=== PATIENT | male | born 1945 | race Caucasian/White ===

== ENCOUNTER 2018-02-12 12:45 | Emergency (ER) | payer MEDICARE, SELFPAY ==
[2018-02-12 12:47] VITALS: BP 127/64; PULSE 73; RESP 18; TEMP 36.3; O2SAT 98; BMI 32.5
--- NOTE | 2018-02-12 13:20 | NURSING ---
NO LW OR POA
--- NOTE | 2018-02-12 13:45 | RAD_ITS ---
STUDY: X-RAY - LEFT KNEE REASON FOR EXAM: Male, 72 years old. Trauma, status post fall with pain TECHNIQUE: 4 view(s) of the knee. COMPARISON: None. FINDINGS: Normal visualized distal femur. Normal visualized proximal tibia and fibula. Normal proximal tibiofibular articulation. The bones are demineralized. No acute fracture is seen. There is moderate degenerative arthrosis of the medial femorotibial compartment with moderate joint space narrowing. Normal lateral femorotibial compartment. There is moderate degenerative arthrosis of the patellofemoral articulation. There is no demonstrated joint effusion. Extensive atherosclerotic vascular calcifications are seen. RAD/Knee 4 or More Views IMPRESSION: Degenerative arthrosis. Osteopenia, without acute fracture. Electronically Signed: Shailesh Boateng DO at 14:24 EDT Tel , Service support ,
--- NOTE | 2018-02-12 14:49 | ED.VISSUMM ---
- ER Visit Summary Date of Service: 02/12/18 Chief Complaint: Left knee pain History of Present Illness: The patient is a 72 M who presents with left knee pain. He fell 4 weeks ago. He has been having pain since that time. However he twisted began 5 days ago and his pain is been worse since that time. Normally he ambulates with a walker but over the last few days has been unable to bear weight due to pain. He is using a wheelchair and is able to pivot to change locations at home. He denies any paresthesias weakness or loss of function. While he is at a rest if he is not moving he has no pain. However with attempts at bearing weight his pain is severe. He denies any other injuries. Physical Examination: Afebrile vitals normal Heart regular rate and rhythm Lungs clear Abdomen soft Patient has painful range of motion of left knee but is able to go through active full range of motion. His extensor mechanism is intact. There is no appreciable effusion. It is not hot to the touch or erythematous. Test Results: Knee x-ray shows degenerative changes and osteopenia but no fracture. Emergency Department Course and Treatment: Patient declined any medications here. We discussed orthopedic referral which she would prefer to go through the [facility] for. We do discuss pain medications at home he does not want to take any opiates and will use [id number] pain medications. His daughter is also a physical therapist who he said could help with some therapy and taping. We discussed following up with his primary care physician for physical therapy referral as well. Treatment Plan: [] Disposition: Discharge Impression: Acute left knee sprain This note was generated with [employer] dictation software. It may contain incorrect words, spelling, and punctuation that were not noted in review of the chart prior to signing ED Disposition - Plan for ED Patient: Chief Complaint: Lower Extremity Injury Referrals: Reyna Apple MD [Primary Care Provider] -
--- NOTE | 2018-02-12 14:52 | ED.DCSUM_ITS ---
- ER Visit Summary Date of Service: 02/12/18 Chief Complaint: Left knee pain History of Present Illness: The patient is a 72 M who presents with left knee pain. He fell 4 weeks ago. He has been having pain since that time. However he twisted began 5 days ago and his pain is been worse since that time. Normally he ambulates with a walker but over the last few days has been unable to bear weight due to pain. He is using a wheelchair and is able to pivot to change locations at home. He denies any paresthesias weakness or loss of function. While he is at a rest if he is not moving he has no pain. However with attempts at bearing weight his pain is severe. He denies any other injuries. Physical Examination: Afebrile vitals normal Heart regular rate and rhythm Lungs clear Abdomen soft Patient has painful range of motion of left knee but is able to go through active full range of motion. His extensor mechanism is intact. There is no appreciable effusion. It is not hot to the touch or erythematous. Test Results: Knee x-ray shows degenerative changes and osteopenia but no fracture. Emergency Department Course and Treatment: Patient declined any medications here. We discussed orthopedic referral which she would prefer to go through the [facility] for. We do discuss pain medications at home he does not want to take any opiates and will use [id number] pain medications. His daughter is also a physical therapist who he said could help with some therapy and taping. We discussed following up with his primary care physician for physical therapy referral as well. Treatment Plan: [] Disposition: Discharge Impression: Acute left knee sprain This note was generated with [employer] dictation software. It may contain incorrect words, spelling, and punctuation that were not noted in review of the chart prior to signing ED Disposition - Plan for ED Patient: Chief Complaint: Lower Extremity Injury Referrals: Reyna Apple MD [Primary Care Provider] -
--- NOTE | 2018-02-12 14:52 | ED.DEP ---
ED Disposition - Plan for ED Patient: Chief Complaint: Lower Extremity Injury Instructions: ED Sprain Knee Referrals: Reyna Apple MD [Primary Care Provider] -
[2018-02-12 15:27] VITALS: PULSE 76; RESP 18; O2SAT 97
== END 2018-02-12 15:28 | disposition home or self-care (01) ==
PROVIDERS: Emergency Provider Emergency Medicine; Family Provider Family Medicine; PCP Family Medicine
DX: S83.92XA Sprain of unspecified site of left knee, initial encounter (principal); W19.XXXA Unspecified fall, initial encounter; Y93.9 Activity, unspecified; Y92.9 Unspecified place or not applicable; M85.88 Other specified disorders of bone density and structure, other site; I25.10 Atherosclerotic heart disease of native coronary artery without angina pectoris; K21.9 Gastro-esophageal reflux disease without esophagitis; E11.9 Type 2 diabetes mellitus without complications; I10 Essential (primary) hypertension; E78.00 Pure hypercholesterolemia, unspecified; G20 Parkinson's disease; Z85.47 Personal history of malignant neoplasm of testis; E03.9 Hypothyroidism, unspecified; Z90.89 Acquired absence of other organs; Z95.1 Presence of aortocoronary bypass graft; Z79.82 Long term (current) use of aspirin; Z79.4 Long term (current) use of insulin; Z79.84 Long term (current) use of oral hypoglycemic drugs; Z79.899 Other long term (current) drug therapy
CPT/HCPCS: 73564; 99282

== ENCOUNTER 2018-11-23 14:33 | Inpatient (IN) | payer MEDICARE, OTHER, SELFPAY ==
[2018-10-22 10:27] VITALS: BMI 30.2
[2018-11-23] VITALS (9 sets, daily range): BP systolic 92–154; BP diastolic 44–83; PULSE 70–82; RESP 18–28; TEMP 36.3–37.1; O2SAT 88–98; BMI 28.3; BMI 27.9
--- NOTE | 2018-11-23 15:12 | EKG12_ITS ---
Test Reason : WEAKNESS Blood Pressure : / mmHG Vent. Rate : 075 BPM Atrial Rate : 075 BPM P-R Int : 000 ms QRS Dur : 138 ms QT Int : 418 ms P-R-T Axes : 000 -35 025 degrees QTc Int : 466 ms Suspect unspecified pacemaker failure AV Sequential Pacemaker Abnormal ECG Confirmed by NOAH CEVALLOS, ENEIDA ([id number]), digital editor JESSICA OLIVER ([id number]) on 11/25/2018 1:27:15 PM Referred By: Vick Gay Confirmed By:ENEIDA ZAMORA MD
--- NOTE | 2018-11-23 15:18 | ED.VISSUMM ---
- ER Visit Summary Date of Service: 11/23/18 Chief Complaint: Weakness History of Present Illness: The patient is a 73 M reports diarrhea for the past 2 weeks. He is noted increased generalized weakness and has had multiple falls at home. He denies injury. He does live home alone. He states he does use a cane or walker to help him with ambulation. He states his legs just freeze and he falls. Patient denies fever or chills. He denies chest pain or palpitations. He does not feel short of breath and has not had cough. Physical Examination: Blood pressure is 108/51, temperature 97.6, heart rate 82, respiratory rate 22, pulse ox 88% on room air. Sat is 92% on 2 L nasal cannula at the time of my exam. Patient sitting upright in bed no acute distress. Head and neck examination was no external sign of trauma. Heart is regular rate and rhythm with a 2/6 murmur. Lungs sounds are clear. Abdomen is soft no focal tenderness. Active bowel sounds are noted. Lower extremity examination was 2+ edema that is symmetric. Legs are nontender. Parkinson's tremor is noted. Test Results: CBC reveals white count 11.3 with 90% neutrophils. Hemoglobin is 8. Chemistry studies reveal BUN of 50 and a creatinine 1.43. Urinalysis unremarkable. Troponin negative. EKG is A. fib at 75 with right bundle branch block. He has slightly more pronounced ST depression in V2 compared to prior but this may be secondary to lead placement. Portable chest x-ray is read as bibasilar infiltrates, worse on the left. Emergency Department Course and Treatment: Patient was pretty adamant he did not feel short of breath and had not been coughing. Family at bedside agreed with this. Patient was sent for a CT of the chest and this revealed significant bilateral lower lobe infiltrate secondary to pneumonia. There is also a right upper lobe infiltrate. At this time blood cultures are obtained and patient is given Rocephin and Zithromax. Treatment Plan: [] Disposition: Admit Impression: Pneumonia This note was generated with [employer] dictation software. It may contain incorrect words, spelling, and punctuation that were not noted in review of the chart prior to signing ED Disposition - Plan for ED Patient: Disposition: Acute Care [facility]
--- NOTE | 2018-11-23 15:20 | RAD_ITS ---
STUDY: X-RAY CHEST REASON FOR EXAM: Male, 73 years old. Weakness. TECHNIQUE: Single AP portable view of the chest. COMPARISON: Comparison is made with prior study dated August 14, 2015. FINDINGS: EKG electrodes are seen. There is evidence of bibasilar infiltrates worse on the left side. Follow-up is recommended. There is blunting of the left costophrenic angle. Sternal cerclage wires and vascular clips are present from a prior sternotomy and coronary artery bypass graft procedure (CABG). There is evidence of a rupture of the superior cerclage wires. Stable appearance of the right dual-chamber pacemaker. Normal mediastinum and arun. Normal visualized pulmonary arteries. There is atherosclerotic calcification of the aortic arch with tortuosity. There are diffuse degenerative changes of the visualized thoracic spine. Prior left rotator cuff surgery. There is no demonstrated abnormality of the visualized soft tissue structures of the upper abdomen. RAD/Chest 1 View (Portable) IMPRESSION: Bibasilar infiltrates worse on the left side with blunting of the left costophrenic angle. Electronically Signed: Charles Steen, at 15:57 EDT , Service support ,
[2018-11-23 15:33] LABS: Absolute Lymphocyte Count 0.65 X10^3/ul (0.83-4.51); Absolute Neutrophil Count 10.2 X10^3/uL (2.0-7.7); Hematocrit 23.8 % (40-54); Lymphocyte # 0.65 X10^3/ul (4.0); Lymphocyte % 5.7 % (19-41); Mean Corp Hgb Conc 33.6 g/gl (32-36); Mean Corpuscular Hgb 29.4 pg (27.0-32.0); Mean Corpuscular Volume 87.5 fL (80-94); Mean Platelet Vol. 9.1 fl (6.2-12.0); Monocyte# 0.42 X10^3/uL; Monocyte% 3.7 % (0-10); Neutrophil # 10.23 X10^3/uL (2.7-7.7); Neutrophil % 90.3 % (47-70); Platelet Count 296 K/mm3 (150-450); RBC Distribution Width CV 16.3 % (11.6-14.6); RBC Distribution Width SD 52.7 fl (35.1-43.9); Red Blood Count 2.72 M/mm3 (4.6-6.2); White Blood Count 11.3 K/mm3 (4.4-11.0)
[2018-11-23 15:40] LABS: Anion Gap 7 (5-15); BUN 50 mg/dL (7-18); Calcium,Total 8.6 mg/dL (8.5-10.1); Chloride 106 mmol/L (98-107); Creatinine, Serum 1.43 mg/dL (0.70-1.30); EST Glomerular Filtration Rate 51 mL/min (>60); Est Glom Filt Rate - Afr Amer 62 mL/min (>60); Estimated Creatinine Clearance 39.42 ml/min; Glucose 155 mg/dL (74-106); Potassium 4.2 mmol/L (3.5-5.1); Sodium Level 136 mmol/L (136-145)
[2018-11-23] MEDS: 0.9% Normal Saline 1,000 ML 15 ML IV (15:42)
[2018-11-23 15:44] LABS: POSITIVE COUNT NO; POSITIVE DIFFERENTIAL NO; POSITIVE MORPHOLOGY NO
[2018-11-23 16:06] LABS: Bacteria 0 SEEN /hpf (None Seen); Mucous, Urine 0 SEEN /hpf (<or=2+); Red Blood Cells-Urine 0 SEEN /hpf (0-5)
--- NOTE | 2018-11-23 16:39 | CASEMGMT ---
Social Work Note Referral from Carissa Puente, RN, for resources as family is concerned that the 4 hrs/day of aide services is not enough. Introduced self and role at [facility]. Pt and pt's son in law present at time of assessment. Pt is alert and oriented x3 and able to participate in assessment at this time. Pt reports to live alone in a 3 story home with a one level setup. There are 4 YOLANDE and a chair lift up the steps. DME consists of a cane and walker, but pt does not primarily use he states. Estimates he had about 5 falls in the last week. Discuss options at discharge such as SNF or HHC. Pt states, I hate the 'n' word [assisted], but would go if needed. Recommend that he discusses his PT/OT evaluations with the appropriate disciplines and makes an educated decision with family from there. Understanding expressed and pt and family in agreement. Pt confirms his PCP is Dr. Goldberg, and he also sees Dr. Clifton at the [facility]. Pt served in the [employer]. Preferred pharmacy is [facility] in [place]. Pt does have LW and HCPOA and his daughter Renay is his HCPOA. Forms not on file and requested that they be brought in at their convenience. Pt and family made aware that an RN CM or SW is available to assist with discharge planning from their assigned unit. PLAN: ROSCOE Lezama, [employer] SORTER, KARLEE
[2018-11-23 16:41] LABS: Color, Urine Yellow (Yellow); Glucose, Dipstick Normal (Normal); Ketone-Dipstick Negative (Negative); Leukocyte Esterase-Dipstick 25 /ul (Negative); Nitrite-Dipstick Negative (Negative); Occult Blood-Urine Negative /ul (Negative); Protein-Dipstick Negative (Negative); Urine Bilirubin Dipstick Negative (Negative); Urine Clarity Clear (Clear); Urine Urobilinogen Normal (Normal)
[2018-11-23 16:43] LABS: Squamous Epithelial Cells - UA 0-5 SEEN /hpf (0-5); White Blood Cells 0-5 SEEN /hpf (0-5)
--- NOTE | 2018-11-23 17:28 | CT_ITS ---
STUDY: CT CHEST WITHOUT CONTRAST REASON FOR EXAM: Male, 73 years old. Weakness, abnormal chest x-ray RADIATION DOSAGE (If Supplied By Facility): CTDIvol = ( 17.82 ) mGy, DLP = ( 619.06 ) mGycm TECHNIQUE: Transaxial imaging was performed without the administration of intravenous contrast material. Individualized dose optimization techniques were used for this CT. COMPARISON: None. FINDINGS: There are significant bilateral lower lobe pulmonary infiltrates with subsegmental atelectasis. There is mild right upper lobe pulmonary infiltrate. There is motion artifact on the exam. There is a 5 mm left upper lobe pulmonary nodule. There is a mild ground glass pulmonary opacity within the left upper lobe. There is mild infiltrate within the right middle lobe. Normal heart and pericardium. There is a 2.5 x 1.5 cm low-density right adrenal gland lesion. There is median sternotomy. There is a cardiac pacemaker. There is sternal dehiscence. There are old right rib fractures. Normal mediastinum. Normal hilar regions. Normal unenhanced pulmonary arteries. Normal aorta arch and descending thoracic aorta. The multilevel degenerative changes thoracic and lumbar spine with Schmorl's nodes. There is no demonstrated abnormality of the visualized upper abdomen. There are surgical clips within the left humeral head likely from rotator cuff repair. CT/Chest without Contrast IMPRESSION: Significant bilateral lower lobe pulmonary infiltrates and subsegmental atelectasis secondary to pneumonia Right upper lobe pulmonary infiltrate Minimal pulmonary infiltrates right middle lobe and left upper lobe Indeterminate 5 mm pulmonary nodule within the left upper lobe, [address] chest follow-up for stability is recommended Multilevel spondylosis thoracic and lumbar spine Right adrenal adenoma Sternal dehiscence Left shoulder surgical clips likely from prior rotator cuff repair Electronically Signed: Bahman Greenfield, at 19:07 EDT Tel , Service support ,
--- NOTE | 2018-11-23 20:24 | HP.PCM_ITS ---
Problem List (1) Paroxysmal ventricular tachycardia Status: Acute (2) Implantable cardioverter-defibrillator (ICD) in situ Status: Chronic (3) Type 2 diabetes mellitus Status: Chronic (4) Community acquired pneumonia Status: Acute History of Present Illness Date of Admission: 11/23/18 Chief Complaint: fall The patient is a 73 year old M with a significant history of atrial fibrillation; Parkinson's disease; type 2 diabetes; permanent pacemaker with defibrillator who presented to the emergency department because of a fall. Patient uses a walking device. Reportedly he fell due to complications with a walking device and family thinks that his fall was mechanical. He laid down for some time because he was too weak to get up. His fall was on the same day of presentation. Also patient reports a 2-week history of loose stools. He denies any fever. He denies any nausea or vomiting. He has chills and he has poor appetite. He denies any shortness of breath. He has a dry cough. At the emergency department patient was found to be 88% on room air. At the emergency department chest x-ray showed bibasilar infiltrates worse on the left side with blunting of the left costophrenic angle. Chest CT was also remarkable for significant bilateral lower lobe pulmonary infiltrates and subsegmental atelectasis secondary to pneumonia. Right upper lobe pulmonary infiltrate and indeterminate 5mm pulmonary nodule as well as right adrenal adenoma. Past Medical History Past Medical History (Chronic Problems): Chronic Problems (Last Reviewed 11/23/18 @ 21:51 by Vick Gay MD) Atherosclerotic heart disease of [place] coronary artery without angina pectoris (Chronic) CABG x4- MONTERO to LAD, EPIFANIO to the Distal RCA, Right Radial Artery to the OM branch of CX, and Reverse SVG from the aorta to the Distal RCA 08/17/01 Aortocoronary bypass status (Chronic ~08/17/01) CABG x4- MONTERO to LAD, EPIFANIO to the Distal RCA, Right Radial Artery to the OM branch of CX, and Reverse SVG from the aorta to the Distal RCA 08/17/01 Hyperlipidemia (Chronic) Hypertension (Chronic) Long-term use of high-risk medication (Chronic) Implantable cardioverter-defibrillator (ICD) in situ (Chronic ~10/23/11) Type 2 diabetes mellitus (Chronic) Atrial flutter (Chronic) Atrial fibrillation (Chronic) Medical History: Medical History (Last Reviewed 11/23/18 @ 21:58 by Vick Gay MD) Atherosclerotic heart disease of [place] coronary artery without angina pectoris (Chronic) I25.10 CABG x4- MONTERO to LAD, EPIFANIO to the Distal RCA, Right Radial Artery to the OM branch of CX, and Reverse SVG from the aorta to the Distal RCA 08/17/01 Hyperlipidemia (Chronic) E78.5 Hypertension (Chronic) I10 Carotid bruit (Acute) R09.89 Long-term use of high-risk medication (Chronic) Z79.899 Paroxysmal ventricular tachycardia (Acute) I47.2 Type 2 diabetes mellitus (Chronic) E11.9 Atrial flutter (Chronic) I48.92 Atrial fibrillation (Chronic) I48.91 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 Parkinsons disease G20 Allergies Iodine and Iodide Containing Produc Allergy (Verified 11/23/18 15:05) Shortness of breath simvastatin Adverse Reaction (Verified 11/23/18 15:05) Other Home Medications: Ambulatory Orders Medication Instructions Recorded Atorvastatin Calcium [Lipitor] 20 mg PO QHS 09/27/14 Diltiazem HCl [Diltiazem 24Hr ER] 180 mg PO DAILY 09/27/14 Insulin Aspart [Novolog Flexpen] 5 units SC BREAKFAST 09/27/14 Insulin Aspart [Novolog Flexpen] 6 units SC LUNCH 09/27/14 Insulin Aspart [Novolog Flexpen] 7 units SC DINNER 09/27/14 Insulin Glargine [Lantus SoloStar 26 units SC QHS 09/27/14 Pen] Lisinopril [Zestril] 5 mg PO DAILY 09/27/14 Metformin HCl [Glucophage] 500 mg PO TIDCM 09/27/14 Omeprazole [Prilosec] 20 mg PO BID 09/27/14 buPROPion tablets [Wellbutrin 150 mg PO BID 09/27/14 tablets] hydrOXYzine tablet [Atarax tablet] 10 mg PO TID PRN PRN 09/27/14 aspirin 325 mg tablet 325 mg PO QDAY 01/12/18 carbidopa 25 mg-levodopa 250 mg 1.5 tab PO Q6H tab 01/12/18 tablet cyanocobalamin (vit B-12) 1,000 1,000 mcg PO QDAY 05/14/18 mcg tablet entacapone 200 mg tablet 200 mg PO Q6H tab 01/12/18 gabapentin 600 mg tablet 600 mg PO BID 01/12/18 ranitidine 150 mg tablet 150 mg PO QHS 01/12/18 calcium citrate-vitamin D3 315 1 tab PO DAILY 10/22/18 mg-250 unit tablet coconut oil 1,000 mg capsule 1,000 mg PO TID cap 10/22/18 ferrous sulfate 325 mg (65 mg 325 mg PO TID tab 10/22/18 iron) tablet isosorbide mononitrate ER 60 mg 60 mg PO DAILY tab 10/22/18 tablet,extended release 24 hr levothyroxine 137 mcg tablet 137 mcg PO DAILY 10/22/18 sertraline 100 mg tablet 150 mg PO DAILY tab 10/22/18 Surgical History: Surgical History (Last Reviewed 11/23/18 @ 21:51 by Vick Gay MD) Aortocoronary bypass status (Chronic) Onset Date: ~08/17/01 Z95.1 CABG x4- MONTERO to LAD, EPIFANIO to the Distal RCA, Right Radial Artery to the OM branch of CX, and Reverse SVG from the aorta to the Distal RCA 08/17/01 Implantable cardioverter-defibrillator (ICD) in situ (Chronic) Onset Date: ~10/23/11 Z95.810 History of appendectomy Z90.49 History of cardiac radiofrequency ablation Onset Date: ~06/2003 Z98.890 History of orchiectomy, unilateral Z90.79 History of tonsillectomy Z90.89 Lives: Alone Smoking Status: Former smoker - *Family History Maternal Family History: Family History (Last Reviewed 11/23/18 @ 21:52 by Vick Gay MD) Father CAD (coronary artery disease) Myocardial infarction Mother CAD (coronary artery disease) Sister Diabetes Sister CAD (coronary artery disease) Hx of CABG History Items: No pertinent history Review of Systems Constitutional: Reports: Anorexia, Chills, Weakness. Denies: Fever, Weight Change HEENT: Denies: Head Aches, Sinus Congestion, Sinus Drainage Cardiovascular: Denies: Chest Pain, Palpitations Respiratory: Reports: Cough. Denies: Shortness of breath at rest, Sputum production Gastrointestinal: Reports: Diarrhea. Denies: Abdominal Pain, Nausea, Vomiting Genitourinary: Denies: Dysuria Musculoskeletal: Denies: Joint Pain, Joint Tenderness Skin: Denies: Rash, Wounds Neurological: Denies: Numbness, Tingling, Focal weakness Psychiatric: Reports: Depression. Denies: Anxiety, Homicidal Ideations, Suicidal Ideations Hematologic/ Lymphatic: Denies: Easy Bruising, Easy Bleeding VTE Information - Inpt Only VTE Present on Admission: No VTE Mechan Device Prophylaxis: None VTE Pharm Prophylaxis ordered?: Yes Patient Problems: Active and Suspected Problems (Last Reviewed 11/23/18 @ 21:51 by Vick Gay MD) Community acquired pneumonia (Acute) - Physical Exam General: Alert, Oriented x3, Cooperative HEENT: Atraumatic, PERRLA, EOMI, Normocephalic Neck: Supple, No JVD, Negative Carotid Bruits Lungs: Clear to auscultation, Normal air movement Cardiovascular: Regular rate, No murmurs Abdomen: Bowel Sounds Present, Soft, Non Tender Extremities: No edema, Capillary Refill Less than 3 Seconds Skin: No rashes, No breakdown Musculoskeletal: No Tenderness to Palpation of Joints or Extremities Neurological: - - Patient noted with bilateral tremors of the hands. Neuro otherwise grossly intact. Psych/Mental Status: Normal Affect, Appropriate Vital Signs Temp Pulse Resp BP Pulse Ox 98.7 F 70 18 114/60 93 11/23/18 18:19 11/23/18 18:19 11/23/18 18:19 11/23/18 18:19 11/23/18 18:19 Oxygen Flow Rate (L/min) 3 Oxygen Delivery Method Nasal Cannula Weight: 77.111 kg Body Mass Index (BMI) 28.3 Laboratory Tests Past 24 Hrs 11/23/18 11/23/18 11/23/18 15:00 15:00 15:00 WBC 11.3 H RBC 2.72 L Hgb 8.0 L Hct 23.8 L MCV 87.5 MCH 29.4 MCHC 33.6 RDW 16.3 H RDW Differential 52.7 H Plt Count 296 MPV 9.1 Immature Gran % (Auto) 0.300 Neut % (Auto) 90.3 H Lymph % (Auto) 5.7 L [place] % (Auto) 3.7 Eos % (Auto) 0.0 Baso % (Auto) 0.0 Absolute Neuts (auto) 10.2 H Absolute Lymphs (auto) 0.65 L Total Counted Not Reportable Sodium 136 Potassium 4.2 Chloride 106 Carbon Dioxide 23.0 Anion Gap 7 BUN 50 H Creatinine 1.43 H Estim Creat Clear Calc 39.42 Est GFR (MDRD) Af Amer 62 Est GFR (MDRD) Non-Af 51 L BUN/Creatinine Ratio 35.0 H Glucose 155 H Calcium 8.6 Troponin I < 0.015 Urine Color Urine Clarity Urine pH Ur Specific [place] Urine Protein Urine Glucose (UA) Urine Ketones Urine Occult Blood Urine Nitrite Urine Bilirubin Urine Urobilinogen Ur Leukocyte Esterase Urine RBC Urine WBC Ur Squamous Epith Cells Urine Bacteria Urine Mucus 11/23/18 16:00 WBC RBC Hgb Hct MCV MCH MCHC RDW RDW Differential Plt Count MPV Immature Gran % (Auto) Neut % (Auto) Lymph % (Auto) [place] % (Auto) Eos % (Auto) Baso % (Auto) Absolute Neuts (auto) Absolute Lymphs (auto) Total Counted Sodium Potassium Chloride Carbon Dioxide Anion Gap BUN Creatinine Estim Creat Clear Calc Est GFR (MDRD) Af Amer Est GFR (MDRD) Non-Af BUN/Creatinine Ratio Glucose Calcium Troponin I Urine Color Yellow Urine Clarity Clear Urine pH 5.0 Ur Specific [place] 1.010 Urine Protein Negative Urine Glucose (UA) Normal Urine Ketones Negative Urine Occult Blood Negative Urine Nitrite Negative Urine Bilirubin Negative Urine Urobilinogen Normal Ur Leukocyte Esterase 25 H Urine RBC 0 SEEN Urine WBC 0-5 SEEN Ur Squamous Epith Cells 0-5 SEEN Urine Bacteria 0 SEEN Urine Mucus 0 SEEN Assessment/Plan All Active Problems (Last Reviewed 11/23/18 @ 21:51 by Vick Gay MD) Community acquired pneumonia (Acute) Carotid bruit (Acute) Paroxysmal ventricular tachycardia (Acute) The patient is a 73 year old M with a significant history of atrial fibrillati on; Parkinson's disease; type 2 diabetes; permanent pacemaker with defibrillator who presented to the emergency department because of a fall; weakness and diarrhea and found to have radiographic evidence of pulmonary infiltrates consistent with likely committee acquired pneumonia. Community-acquired pneumonia Checks x-ray impression: Bibasilar infiltrates worse on the left side with blunting of the left costophrenic angle. Chest x-ray was independently reviewed. I agree with radiologist interpretation. CT chest showed bilateral pulmonary infiltrates and pulmonary nodule as well as right adrenal adenoma. CT chest was independently reviewed and agree with radiologist interpretation. Blood culture ?2 is pending Patient with a dry cough and no shortness of breath. No sputum cultures ordere d. Antibiotics: Received ceftriaxone and azithromycin at the emergency department on 11/23/2018. Ceftriaxone and azithromycin continued. Legionella antigen screen and Strep antigen ordered Acute hypoxemic renal failure At emergency department patient was found to 88% on room air. Likely secondary to committee acquired pneumonia. Treatment of community acquired pneumonia as above. Acute gastro enteritis Differential Diagnosis include pneumonia. Treatment of pneumonia and work up as above. We will get enteric pathogen panel and C. difficile test Generalized weakness and fall. Likely due to debility and history of Parkinson's disease. Patient to work with PT and OT for strengthening and balance training. IDALIA. On presentation his creatinine was 1.43. His creatinine on 08/16/2015 was 0.74 and his creatinine on 08/15/2015 was 1.25. His creatinine 08/14/2015 was 1.54. Probably patient has AK I from dehydration secondary to diarrhea. His BUN on presentation was 50. Highest previous BUN was 39. Gentle normal saline hydration. On home lisinopril. Will hold lisinopril. Avoid other nephrotoxics. Other different diagnosis include CKD. Diabetes mellitus: on presentation his blood glucose was within goal. We will continue patient on home prandial short acting insulin and long-acting basal insulin Accu-Chek q. before meals at bedtime with hypoglycemia protocol ordered Hypertension On presentation his blood pressure was within goal and pain had some readings that was a little on the low side. We will continue home Imdur with parameters. Lisinopril held due to AK I. Right adrenal adenoma Cortisol level and plasma catecholamines level ordered. Pulmonary Nodule Patient with subcentimeter nodule found on CT Chest Patient will need longitudinal follow-up. Hyperlipidemia Lipitor continued History of CAD Aspirin 325 mg daily continued Lipitor continued. Imdur continued. Hypothyroidism: Synthroid continued GERD Prilosec and ranitidine continued Depression:sertraline; and Wellbutrin continued Parkinson disease Carbidopa levodopa continued DVT Prophylaxis SC Lovenox ordered Code Visit Inpatient E&M: 23344 Init Hosp L3
[2018-11-23] MEDS: Ceftriaxone 1 GM/50 ML BAG IV (20:38)
[2018-11-23 22:46] LABS: Bedside Glucose 194 mg/dL (70-110)
[2018-11-23] MEDS: Atorvastatin Calcium 20 MG Tablet PO (22:57)
[2018-11-23] MEDS: Famotidine 20 MG Tablet PO (22:57)
[2018-11-23] MEDS: Carbidopa/Levodopa 25/250 Tablet PO (22:57)
[2018-11-23] MEDS: buPROPion (SR) 150 MG Tablet.SA PO (22:57)
[2018-11-23] MEDS: Pantoprazole Sodium 20 MG Tablet PO (22:57)
[2018-11-23] MEDS: 0.9% Normal Saline 1,000 ML 75 ML IV (23:04)
[2018-11-23] MEDS: Gabapentin 600 MG Tablet PO (23:04)
[2018-11-24] VITALS (15 sets, daily range): BP systolic 109–131; BP diastolic 53–69; PULSE 70–80; RESP 16–26; TEMP 36.4–37.1; O2SAT 92–99
[2018-11-24] MEDS: Menthol/Lanolin/Calamine/Znox 113 GM Tube 1 APPLIC TOPICAL ×3 (05:55→21:34)
[2018-11-24] MEDS: Carbidopa/Levodopa 25/250 Tablet PO ×4 (05:55→23:25)
[2018-11-24] MEDS: Levothyroxine 137 MCG Tablet PO (05:55)
--- NOTE | 2018-11-24 06:57 | PCM.PN.HOSP ---
Patient Problems: Active and Suspected Problems (Last Reviewed 11/23/18 @ 21:58 by Vick Gay MD) Community acquired pneumonia (Acute) Subjective: Patient notes feeling improved since initial presentation with less dyspnea, less coughing as well as improvement of her malaise and fatigue. He notes that he has been weak and has fallen at home which prompted his initial presentation, using a walker however he then also admitted that he has been having ongoing loose stools for the last approximate 2 weeks with additionally an ongoing mild dry cough, nonproductive. He notes that stools have lessened since admission as well and he denies any abdominal cramping, nausea or emesis. Discussed plan for physical and occupational therapy evaluation and possible recommendation for skilled facility if felt unsafe for home; however, patient was very resistant to this idea regardless of the recommendation. Patient denies fevers, chills, nausea, emesis, abdominal pain, chest pain or dyspnea. Objective: Physical Examination: General: awake, alert, oriented x 3 and cooperative, seated upright in a MedSurg bed, notes feeling improved. Skin: normal color, turgor, no icterus, cyanosis occasional staged ecchymoses to the extremities. HEENT: AT/NC, EOMI, PERRLA, mildly dry MM. Lungs: CTA bilaterally, moderate effort, mild decrease BL bases, no rales, ronchi or wheezing. Heart: Regular rate and rhythm; no gallop, rub audible. Abdomen: soft, NTTP, ND, normal BS. Extremities: no cyanosis, clubbing, lateral upper extremity tremors present, chronic Neurological: patient awake, alert, oriented x 3; cognitive function intact; pupils equally reactive to light and accomodation; cranial nerves II-XII grossly normal, moving all 4 extremities, no focal deficits, chronic primarily upper extremity tremors present, strength severely globally decreased secondary to acute presentation. Psychiatric: affect appears moderately flat, no acute evidence of depressive or anxiety feelings. Vitals/I&O's: Vital Signs Temp Pulse Resp BP Pulse Ox 98 F 79 16 111/57 L 92 11/24/18 02:58 11/24/18 02:58 11/24/18 02:58 11/24/18 02:58 11/24/18 03:19 Oxygen Flow Rate (L/min) 5 Oxygen Delivery Method CPAP Weight: 167 lb 12.348 oz Body Mass Index (BMI) 27.9 Intake and Output for Last 24 Hours 11/22/18 11/23/18 11/24/18 23:59 23:59 23:59 Intake Total 621 / 621 Output Total 650 / 650 Balance -29 / -29 Microbiology Past 72 Hours 11/23/18 16:00 Urine, Clean Catch Streptococcus pneumoniae Antigen (M - Final 11/23/18 16:00 Urine, Clean Catch Legionella Antigen - Final Laboratory Results 11/23/18 15:00: WBC 11.3 H, RBC 2.72 L, Hgb 8.0 L, Hct 23.8 L, MCV 87.5, MCH 29.4, MCHC 33.6, RDW 16.3 H, RDW Differential 52.7 H, Plt Count 296, MPV 9.1, Immature Gran % (Auto) 0.300, Neut % (Auto) 90.3 H, Lymph % (Auto) 5.7 L, [place] % (Auto) 3.7, Eos % (Auto) 0.0, Baso % (Auto) 0.0, Absolute Neuts (auto) 10.2 H, Absolute Lymphs (auto) 0.65 L, Total Counted Not Reportable 11/23/18 15:00: Sodium 136, Potassium 4.2, Chloride 106, Carbon Dioxide 23.0, Anion Gap 7, BUN 50 H, Creatinine 1.43 H, Estim Creat Clear Calc 39.42, Est GFR (MDRD) Af Amer 62, Est GFR (MDRD) Non-Af 51 L, BUN/Creatinine Ratio 35.0 H, Glucose 155 H, Calcium 8.6 11/23/18 15:00: Troponin I < 0.015 11/23/18 16:00: Urine Color Yellow, Urine Clarity Clear, Urine pH 5.0, Ur Specific [place] 1.010, Urine Protein Negative, Urine Glucose (UA) Normal, Urine Ketones Negative, Urine Occult Blood Negative, Urine Nitrite Negative, Urine Bilirubin Negative, Urine Urobilinogen Normal, Ur Leukocyte Esterase 25 H, Urine RBC 0 SEEN, Urine WBC 0-5 SEEN, Ur Squamous Epith Cells 0-5 SEEN, Urine Bacteria 0 SEEN, Urine Mucus 0 SEEN 11/23/18 22:26: POC Glucose 194 H Current Medications Acetaminophen (Tylenol) 650 mg PO Q6H PRN PRN PRN Reason: Mild Pain (1-3)/Temp > 100.7 F Albuterol Sulfate (Ventolin Aerosols) 2.5 mg INHALATION Q4HWA.RT [facility] Albuterol/Ipratropium (Duoneb) 3 ml INHALATION Q6HWA.RT [facility] Aspirin (Aspirin) 325 mg PO DAILYCM [facility] Atorvastatin Calcium (Lipitor) 20 mg PO QHS [facility] Last Admin: 11/23/18 22:57 Dose: 20 mg Bupropion HCl (Wellbutrin Sr (150mg Tablets)) 150 mg PO BID [facility] Last Admin: 11/23/18 22:57 Dose: 150 mg Calamine/Phenol (Calmoseptine Ointment) 1 applic TOPICAL TID [facility]; Protocol Last Admin: 11/24/18 05:55 Dose: 1 applicatio Calcium/Vitamin D (Os-Sever[place] 500mg + D) 1 tablet PO DAILY [facility] Carbidopa/Levodopa (Sinemet) 1.5 tablet PO Q6 [facility] Last Admin: 11/24/18 05:55 Dose: 1.5 tablet Cyanocobalamin (Vitamin B12) 1,000 mcg PO DAILY [facility] Dextrose (D50w Syringe) 0 gm IV X1 PRN; Protocol PRN Reason: Hypoglycemia Diltiazem HCl (Cardizem Cd) 180 mg PO DAILY [facility] Enoxaparin Sodium (Lovenox) 40 mg SC DAILY@1000 [facility] Entacapone (Comtan) 200 mg PO Q6 [facility] Last Admin: 11/24/18 05:55 Dose: 200 mg Famotidine (Pepcid) 20 mg PO QHS [facility] Last Admin: 11/23/18 22:57 Dose: 20 mg Ferrous Sulfate (Ferrous Sulfate) 325 mg PO TIDCM [facility] Gabapentin (Neurontin) 600 mg PO BID [facility] Last Admin: 11/23/18 23:04 Dose: 600 mg Glucagon () 1 mg IM .X1 PRN PRN Reason: Hypoglycemia Guaifenesin (Mucinex) 1,200 mg PO BID [facility] Hydroxyzine HCl (Atarax Tablet) 10 mg PO TID PRN PRN PRN Reason: ANXIETY Sodium Chloride () 1,000 mls @ 15 mls/hr IV .Q48H [facility] Last Admin: 11/23/18 15:42 Dose: 15 mls/hr Azithromycin 500 mg/ Dextrose 255 mls @ 250 mls/hr IV Q24@2200 [facility] Ceftriaxone Sodium (Rocephin) 1 gm in 50 mls @ 100 mls/hr IV Q24@2200 [facility] Sodium Chloride () 1,000 mls @ 100 mls/hr IV .Q10H [facility] Insulin Glargine (Lantus (Bkc)) 26 units SC QHS [facility] Last Admin: 11/23/18 23:04 Dose: 26 u Insulin Human Lispro (Humalog Kwikpen (Bkc)) 5 unit SC BREAKFAST [place] Insulin Human Lispro (Humalog Kwikpen (Bkc)) 6 unit SC LUNCH [facility] Insulin Human Lispro (Humalog Kwikpen (Bkc)) 7 unit SC DINNER [facility] Insulin Human Lispro (Humalog Kwikpen (Bkc)) 0 unit SC ACHS [facility]; Protocol Isosorbide Mononitrate (Imdur) 60 mg PO DAILY [facility] Levothyroxine Sodium (Synthroid) 137 mcg PO DAILY@0600 [facility] Last Admin: 11/24/18 05:55 Dose: 137 mcg Ondansetron HCl (Zofran) 4 mg IV Q8H PRN PRN PRN Reason: NAUSEA Pantoprazole Sodium (Protonix) 20 mg PO BID [facility] Last Admin: 11/23/18 22:57 Dose: 20 mg Sertraline HCl (Zoloft) 150 mg PO DAILY [facility] Sodium Chloride () 5 - 15 ml IV UD PRN PRN Reason: SALINE FLUSH Medical Necessity - Tobacco Use Smoking Status: Former smoker Assessment/Plan All Active Problems (Last Reviewed 11/23/18 @ 21:58 by Vick Gay MD) Community acquired pneumonia (Acute) Carotid bruit (Acute) Paroxysmal ventricular tachycardia (Acute) The patient is a 73 y/o M w/ PMHx: CAD s/p CABG x 4, HTN, HLD, Diabetes mellitus type II, PAF, Parkinson's disease who presents to the [facility] ED on 11/23/18 with history of progressively worsening weakness, fatigue, recent fall while using his walking device but stated that he was unable to get up with recent concurrent 2-week history of loose stools with no associated market nausea or emesis but some abdominal cramping, poor appetite as well as a dry cough. 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 Admitted to [place], maintain on oxygen with wean as tolerated to room air, continue ATC duonebs, PRN albuterol, maintained on IV Rocephin and Azithromycin, HOB, IS parameters w/ pending sputum cultures, respiratory viral panel and noted negative urine antigens. Bld cx x 2 obtained in the ED. (2) Diarrhea, Possible secondary to #1, possible Gastroenteritis: Will continue aggressive hydration, will obtain c diff, stool cx, trend CBC, on abx secondary to acute presentation as noted #1, anti-emetics, pain regimen PRN. (3) Acute kidney injury: Secondary to acute presentation with pneumonia and gastroenteritis with GI losses as well as poor oral intake recently. Admission BUN/Cr 34/1.02, prior baseline creatinine noted to be 0.7-1. Will hydrate, hold nephrotoxic medications and repeat chemistry in AM. If no improvement would plan FeNa assessment. (4) Acute on Chronic Normocytic, Fe Deficiency Anemia: Admission Hgb 8, repeat 7.2, given underlying CAD s/p CABG and PAF history as well as hypoxia w/ acute presentation CAP as noted, will administer 2 u PRBC, continue to trend CBC. Continue home iron supplementation. (5) CAD: s/p CABG x 4, MONTERO to LAD, EPIFANIO to the Distal RCA, Right Radial Artery to the OM branch of CX, and Reverse SVG from the aorta to the Distal RCA 08/17/01, maintain on aspirin, statin, not on beta-genevieve but on diltiazem, temporarily holding lisinopril given IDALIA. (6) Hypertension: Continue home regimen including diltiazem, isosorbide, holding lisinopril, PRN hydralazine. (7) Hyperlipidemia: Continue home statin regimen. (8) Diabetes mellitus type II: Hold oral home regimen, continue home insulin regimen, ADA diet, accu checks w/ ISS. (9) Parkinson's disease: Continue home carbidopa-levodopa as well as entacapone regimen, fall precautions, PT, OT, case management evaluations for discharge planning. (10) Hypothyroidism: Continue home synthroid regimen. (11) Anxiety and depression: Continue home Wellbutrin, sertraline regimen. (12) GERD: PPI. (13) DVT prophylaxis: SCDs, renally dosed lovenox. Code Visit Inpatient E&M: 21188 Subs Hosp L2
[2018-11-24 07:17] LABS: Absolute Lymphocyte Count 0.35 X10^3/ul (0.83-4.51); Absolute Neutrophil Count 8.3 X10^3/uL (2.0-7.7); Eosinophil# 0.01 X10^3/uL; Eosinophils% 0.1 % (0-5); Hematocrit 23.3 % (40-54); Hemoglobin 7.2 g/dl (13.0-16.5); Lymphocyte # 0.35 X10^3/ul (4.0); Lymphocyte % 3.7 % (19-41); Mean Corp Hgb Conc 30.9 g/gl (32-36); Mean Corpuscular Hgb 28.1 pg (27.0-32.0); Mean Platelet Vol. 9.3 fl (6.2-12.0); Monocyte# 0.62 X10^3/uL; Monocyte% 6.6 % (0-10); Neutrophil # 8.32 X10^3/uL (2.7-7.7); Neutrophil % 89.2 % (47-70); Platelet Count 317 K/mm3 (150-450); RBC Distribution Width SD 51.8 fl (35.1-43.9); Red Blood Count 2.56 M/mm3 (4.6-6.2); White Blood Count 9.3 K/mm3 (4.4-11.0)
[2018-11-24 07:19] LABS: Differential Indicated SCAN CRITERIA MET; POSITIVE COUNT NO; POSITIVE DIFFERENTIAL YES; POSITIVE MORPHOLOGY NO
[2018-11-24 07:34] LABS: Anion Gap 6 (5-15); BUN 34 mg/dL (7-18); BUN/Creat Ratio 33.3 RATIO (10-20); Calcium,Total 8.1 mg/dL (8.5-10.1); Chloride 109 mmol/L (98-107); Creatinine, Serum 1.02 mg/dL (0.70-1.30); EST Glomerular Filtration Rate 76 mL/min (>60); Est Glom Filt Rate - Afr Amer 92 mL/min (>60); Estimated Creatinine Clearance 55.27 ml/min; Glucose 101 mg/dL (74-106); Potassium 3.7 mmol/L (3.5-5.1); Sodium Level 138 mmol/L (136-145)
[2018-11-24 08:11] LABS: Bedside Glucose 130 mg/dL (70-110)
[2018-11-24] MEDS: 0.9% Normal Saline 1,000 ML 100 ML IV (08:53)
[2018-11-24] MEDS: Insulin Lispro 100 UNIT/ML INSULN.PEN SC (08:53)
[2018-11-24] MEDS: Calcium Carb/Vitamin D 1 TABLET Tablet PO (08:54)
[2018-11-24] MEDS: Cyanocobalamin 500 MCG Tablet 1000 MCG PO (08:54)
[2018-11-24] MEDS: Pantoprazole Sodium 20 MG Tablet PO ×2 (08:54→22:13)
[2018-11-24] MEDS: Ferrous Sulfate 325 MG Tablet PO ×3 (08:54→18:03)
[2018-11-24] MEDS: Aspirin 325 MG Tablet PO (08:55)
[2018-11-24] MEDS: dilTIAZem CD 180 MG Capsule PO (10:23)
[2018-11-24] MEDS: guaiFENesin 1,200 MG Tablet 1200 MG PO ×2 (10:23→22:13)
[2018-11-24] MEDS: buPROPion (SR) 150 MG Tablet.SA PO ×2 (10:23→22:13)
[2018-11-24] MEDS: Enoxaparin 40 MG/0.4 ML Syringe SC (10:23)
[2018-11-24] MEDS: Gabapentin 600 MG Tablet PO ×2 (10:23→22:13)
[2018-11-24] MEDS: Isosorbide Mononitrate 60 MG Tablet PO (10:24)
[2018-11-24] MEDS: Sertraline 50 MG Tablet 150 MG PO (10:31)
[2018-11-24] MEDS: Insulin Lispro 100 UNIT/ML INSULN.PEN 6 UNIT SC (12:14)
[2018-11-24] MEDS: Ipratropium/Albuterol Sulfate 3 ML AMPUL.NEB INHALATION (12:30)
[2018-11-24 12:55] LABS: Bedside Glucose 127 mg/dL (70-110)
--- NOTE | 2018-11-24 13:29 | CASEMGMT ---
Social Work Note SW reviewed PT/OT. Pt walked 12 ft, min assist of 1. JUNE met with pt. Pt's son in law present in room. SW introduced self and role at [facility]. Pt is alert and orientated x3. SW asked pt about discharge plans. Pt asked his son in law what he thought. Pt's son in law states that they feel pt is unsafe to go home at this time and they would like to eventually get 24 hour care set up at home. Pt asked bout [facility] also paying. SW explained that pt is at [facility] under his primary insurance [employer] and that pt can go to SNF under his primary insurance [employer]. SW informed pt and son in law that there are specific nursing homes that are [facility] connected and if pt is certain percentage connected then he is able to go to those. SW again informed pt and son in law that [employer]are is showing up primary for pt and that this worker would look for SNF that take [employer] medicare insurance. SW explained referral process and that pt would need pre-cert. JUNE educated pt on area SNF in network with [place] including [facility], [facility] and [facility]. Pt agreeable to referral being made to TCU. SW asked pt if TCU doesn't have beds what would his second choice be and pt stated [facility]. Pt's son in law informed pt that he should speak with his daughters in regards to SNF as well and that they work late but will be at [facility] later today. Pt again stated to this worker that he is agreeable to TCU referral to be made. JUNE placed a call to [facility] with [facility]. Per [facility] TCU has a bed available and will submit for pre-cert. JUNE placed a call to Shailesh Fox at [facility]. Per Shailesh pt is not service connected and [place]'t cover any costs associated with SNF unless pt was to go under Hospice. JUNE informed Shailesh that pt is going for skilled services. Shailesh asks to be notified of pt's discharge and states that once pt discharges from SNF then [facility] can assist with providing aides in the home. Plan: TCU pending pre-cert Angela Zaragoza [employer], [employer]
[2018-11-24] MEDS: Enoxaparin 30 MG/0.3 ML Syringe SC (16:16)
--- NOTE | 2018-11-24 16:40 | CHAPLAIN ---
Type of Pastoral Visit _x__ Initial Visit ___ Follow-up Visit ___ On-call Visit ___ General Patient Visit ___ Spiritual Assessment ___ Family Conference ___ Bereavement ___ Rapid Response ___ Code Blue ___ Other (describe below) Pastoral Care Referral From _x__ Patient ___ Family ___ Nurse ___ Physician ___ Director Trading ___ Summer Camp Counselor ___ Other (describe below) Sacrament/Intervention _x__ Active listening ___ Anointing ___ Restorationist ___ Bereavement ___ Communion _x__ Candice exploration ___ _x__ Life review _x__ Prayer ___ Reconciliation ___ Sacrament of Sick _x__ Supportive presence ___ Wedding ___ Other (describe below) Pastoral Comments patient is feeling some detachment from his long standing mandaen; pt has decisions to be making about his future; pt welcomes spiritual support, presence, and prayer
[2018-11-24 17:26] LABS: Bedside Glucose 97 mg/dL (70-110)
[2018-11-24 17:31] LABS: Bedside Glucose 60 mg/dL (70-110)
[2018-11-24] MEDS: Furosemide 20 MG/2 ML VIAL IV (20:35)
[2018-11-24] MEDS: 0.9% NaCl Peripheral Flush Adult/Peds IV ×3 (20:36→22:07)
[2018-11-24] MEDS: Ceftriaxone 1 GM/50 ML BAG IV (21:21)
[2018-11-24] MEDS: Atorvastatin Calcium 20 MG Tablet PO (22:13)
[2018-11-24 22:31] LABS: Bedside Glucose 149 mg/dL (70-110)
[2018-11-25] VITALS (9 sets, daily range): BP systolic 109–139; BP diastolic 54–72; PULSE 69–86; RESP 16–22; TEMP 36.5–36.8; O2SAT 92–96
[2018-11-25 06:15] LABS: Hematocrit 27.7 % (40-54); Hemoglobin 8.8 g/dl (13.0-16.5)
[2018-11-25 06:28] LABS: Anion Gap 7 (5-15); BUN 23 mg/dL (7-18); BUN/Creat Ratio 26.2 RATIO (10-20); Chloride 108 mmol/L (98-107); Creatinine, Serum 0.88 mg/dL (0.70-1.30); EST Glomerular Filtration Rate 90 mL/min (>60); Est Glom Filt Rate - Afr Amer 109 mL/min (>60); Estimated Creatinine Clearance 64.06 ml/min; Glucose 89 mg/dL (74-106); Potassium 3.6 mmol/L (3.5-5.1); Sodium Level 141 mmol/L (136-145)
[2018-11-25] MEDS: Menthol/Lanolin/Calamine/Znox 113 GM Tube 1 APPLIC TOPICAL ×3 (06:38→21:31)
[2018-11-25] MEDS: Carbidopa/Levodopa 25/250 Tablet PO ×4 (06:39→23:44)
[2018-11-25] MEDS: Levothyroxine 137 MCG Tablet PO (06:39)
[2018-11-25] MEDS: Oseltamivir Phosphate 30 MG Capsule PO ×2 (06:39→21:38)
[2018-11-25 06:40] LABS: Bedside Glucose 85 mg/dL (70-110)
[2018-11-25] MEDS: Ipratropium/Albuterol Sulfate 3 ML AMPUL.NEB INHALATION ×3 (07:03→19:26)
--- NOTE | 2018-11-25 07:03 | PCM.PN.HOSP ---
Patient Problems: Active and Suspected Problems (Last Reviewed 11/23/18 @ 21:58 by Vick Gay MD) Community acquired pneumonia (Acute) Subjective: Patient overnight with loosening of his cough, more productive, notes breathing has improved but coughing has increased, more harsh. Overnight positive influenza on respiratory viral panel resulted with initiation of Tamiflu. Patient evaluated per therapies day prior and now amenable to TCU transition. TC precertification pending. Patient denies fevers, chills, nausea, emesis, abdominal pain, chest pain or worsened dyspnea. Objective: Physical Examination: General: awake, alert, oriented x 3 and cooperative, seated upright, coughing, more harsh but notes improved. Skin: normal color, turgor, no icterus, cyanosis occasional staged ecchymoses to the extremities. HEENT: AT/NC, EOMI, PERRLA, improved MMM. Lungs: Improved movement, more harsh coughing elicited with examination, mildly coarse, rhonchorous, no wheezing. Heart: Regular rate and rhythm; no gallop, rub audible. Abdomen: soft, NTTP, ND, normal BS. Extremities: no cyanosis, clubbing, lateral upper extremity tremors present, chronic Neurological: patient awake, alert, oriented x 3; cognitive function intact; pupils equally reactive to light and accomodation; cranial nerves II-XII grossly normal, moving all 4 extremities, no focal deficits, chronic primarily upper extremity tremors present, strength improved, remains moderately to severely globally decreased secondary to acute presentation. Psychiatric: affect appears moderately flat, no acute evidence of depressive or anxiety feelings. Vitals/I&O's: Vital Signs Temp Pulse Resp BP Pulse Ox 98.2 F 74 22 H 117/67 96 11/25/18 04:21 11/25/18 04:21 11/25/18 04:21 11/25/18 04:21 11/25/18 04:21 Oxygen Flow Rate (L/min) 4 Oxygen Delivery Method Nasal Cannula Weight: 167 lb 12.348 oz Body Mass Index (BMI) 27.9 Intake and Output for Last 24 Hours 11/23/18 11/24/18 11/25/18 23:59 23:59 23:59 Intake Total 2519 / 2519 400 / 400 Output Total 1999 / 1999 500 / 500 Balance 519 / 519 -100 / -100 Microbiology Past 72 Hours 11/23/18 16:00 Urine, Clean Catch Streptococcus pneumoniae Antigen (M - Final 11/23/18 16:00 Urine, Clean Catch Legionella Antigen - Final Laboratory Results 11/24/18 06:05: Sodium 138, Potassium 3.7, Chloride 109 H, Carbon Dioxide 23.0, Anion Gap 6, BUN 34 H, Creatinine 1.02, Estim Creat Clear Calc 55.27, Est GFR (MDRD) Af Amer 92, Est GFR (MDRD) Non-Af 76, BUN/Creatinine Ratio 33.3 H, Glucose 101, Calcium 8.1 L 11/24/18 06:05: WBC 9.3, RBC 2.56 L, Hgb 7.2 L, Hct 23.3 L, MCV 91.0, MCH 28.1, MCHC 30.9 L, RDW 16.0 H, RDW Differential 51.8 H, Plt Count 317, MPV 9.3, Immature Gran % (Auto) 0.400, Neut % (Auto) 89.2 H, Lymph % (Auto) 3.7 L, [place] % (Auto) 6.6, Eos % (Auto) 0.1, Baso % (Auto) 0.0, Absolute Neuts (auto) 8.3 H, Absolute Lymphs (auto) 0.35 L, Total Counted Not Reportable, Differential Comment COMMENT 11/24/18 06:05: Cortisol 25.10 H 11/24/18 06:05: Plas Tot Catecholamine Pending, Dopamine Pending, Epinephrine Pending, Norepinephrine Pending 11/24/18 08:05: POC Glucose 130 H 11/24/18 12:09: POC Glucose 127 H 11/24/18 15:00: Blood Type A POSITIVE, Antibody Screen NEGATIVE, Crossmatch See Detail 11/24/18 16:39: POC Glucose 60 L 11/24/18 17:17: POC Glucose 97 11/24/18 22:06: POC Glucose 149 H 11/25/18 05:55: Hgb 8.8 L, Hct 27.7 L 11/25/18 05:55: Sodium 141, Potassium 3.6, Chloride 108 H, Carbon Dioxide 26.0, Anion Gap 7, BUN 23 H, Creatinine 0.88, Estim Creat Clear Calc 64.06, Est GFR (MDRD) Af Amer 109, Est GFR (MDRD) Non-Af 90, BUN/Creatinine Ratio 26.2 H, Glucose 89, Calcium 8.0 L 11/25/18 06:38: POC Glucose 85 Current Medications Acetaminophen (Tylenol) 650 mg PO Q6H PRN PRN PRN Reason: Mild Pain (1-3)/Temp > 100.7 F Albuterol Sulfate (Ventolin Aerosols) 2.5 mg INHALATION Q4HWA.RT [facility] Last Admin: 11/24/18 12:15 Dose: Not Given Albuterol/Ipratropium (Duoneb) 3 ml INHALATION Q6HWA.RT [facility] Last Admin: 11/25/18 07:03 Dose: 3 ml Aspirin (Aspirin) 325 mg PO DAILYCM [facility] Last Admin: 11/24/18 08:55 Dose: 325 mg Atorvastatin Calcium (Lipitor) 20 mg PO QHS [facility] Last Admin: 11/24/18 22:13 Dose: 20 mg Bupropion HCl (Wellbutrin Sr (150mg Tablets)) 150 mg PO BID [facility] Last Admin: 11/24/18 22:13 Dose: 150 mg Calamine/Phenol (Calmoseptine Ointment) 1 applic TOPICAL TID [facility]; Protocol Last Admin: 11/25/18 06:38 Dose: 1 applicatio Calcium/Vitamin D (Os-Severiano 500mg + D) 1 tablet PO DAILY [facility] Last Admin: 11/24/18 08:54 Dose: 1 tablet Carbidopa/Levodopa (Sinemet) 1.5 tablet PO Q6 [facility] Last Admin: 11/25/18 06:39 Dose: 1.5 tablet Cyanocobalamin (Vitamin B12) 1,000 mcg PO DAILY [facility] Last Admin: 11/24/18 08:54 Dose: 1,000 mcg Dextrose (D50w Syringe) 0 gm IV X1 PRN; Protocol PRN Reason: Hypoglycemia Diltiazem HCl (Cardizem Cd) 180 mg PO DAILY [facility] Last Admin: 11/24/18 10:23 Dose: 180 mg Enoxaparin Sodium (Lovenox) 30 mg SC DAILY@1000 [facility] Last Admin: 11/24/18 16:16 Dose: 30 mg Entacapone (Comtan) 200 mg PO Q6 [facility] Last Admin: 11/25/18 06:39 Dose: 200 mg Ferrous Sulfate (Ferrous Sulfate) 325 mg PO TIDCM [facility] Last Admin: 11/24/18 18:03 Dose: 325 mg Gabapentin (Neurontin) 600 mg PO BID [facility] Last Admin: 11/24/18 22:13 Dose: 600 mg Glucagon () 1 mg IM .X1 PRN PRN Reason: Hypoglycemia Guaifenesin (Mucinex) 1,200 mg PO BID [facility] Last Admin: 11/24/18 22:13 Dose: 1,200 mg Hydroxyzine HCl (Atarax Tablet) 10 mg PO TID PRN PRN PRN Reason: ANXIETY Sodium Chloride () 1,000 mls @ 15 mls/hr IV .Q48H [facility] Last Admin: 11/23/18 15:42 Dose: 15 mls/hr Azithromycin 500 mg/ Dextrose 255 mls @ 250 mls/hr IV Q24@2200 [facility] Last Admin: 11/24/18 22:13 Dose: 250 mls/hr Ceftriaxone Sodium (Rocephin) 1 gm in 50 mls @ 100 mls/hr IV Q24@2200 [facility] Last Admin: 11/24/18 21:21 Dose: 100 mls/hr Insulin Glargine (Lantus (Bkc)) 26 units SC QHS [facility] Last Admin: 11/24/18 22:13 Dose: 26 u Insulin Human Lispro (Humalog Kwikpen (Bkc)) 5 unit SC BREAKFAST [facility] Last Admin: 11/24/18 08:53 Dose: 5 units Insulin Human Lispro (Humalog Kwikpen (Bkc)) 6 unit SC LUNCH [facility] Last Admin: 11/24/18 12:14 Dose: 6 units Insulin Human Lispro (Humalog Kwikpen (Bkc)) 7 unit SC DINNER [facility] Last Admin: 11/24/18 16:59 Dose: Not Given Insulin Human Lispro (Humalog Kwikpen (Bkc)) 0 unit SC ACHS [facility]; Protocol Last Admin: 11/25/18 06:40 Dose: Not Given Isosorbide Mononitrate (Imdur) 60 mg PO DAILY [facility] Last Admin: 11/24/18 10:24 Dose: 60 mg Levothyroxine Sodium (Synthroid) 137 mcg PO DAILY@0600 [facility] Last Admin: 11/25/18 06:39 Dose: 137 mcg Ondansetron HCl (Zofran) 4 mg IV Q8H PRN PRN PRN Reason: NAUSEA Oseltamivir Phosphate (Tamiflu) 30 mg PO BID [facility] Stop: 11/29/18 10:01 Last Admin: 11/25/18 06:39 Dose: 30 mg Pantoprazole Sodium (Protonix) 20 mg PO BID [facility] Last Admin: 11/24/18 22:13 Dose: 20 mg Sertraline HCl (Zoloft) 150 mg PO DAILY [facility] Last Admin: 11/24/18 10:31 Dose: 150 mg Sodium Chloride () 5 - 15 ml IV UD PRN PRN Reason: SALINE FLUSH Last Admin: 11/24/18 22:07 Dose: 10 ml Medical Necessity - Tobacco Use Smoking Status: Former smoker Assessment/Plan All Active Problems (Last Reviewed 11/23/18 @ 21:58 by Vick Gay MD) Community acquired pneumonia (Acute) Carotid bruit (Acute) Paroxysmal ventricular tachycardia (Acute) The patient is a 73 y/o M w/ PMHx: CAD s/p CABG x 4, HTN, HLD, Diabetes mellitus type II, PAF, Parkinson's disease who [facility] with history of progressively worsening weakness, fatigue, recent fall while using his walking device but stated that he was unable to get up with recent concurrent 2-week history of loose stools with no associated market nausea or emesis but some abdominal cramping, poor appetite as well as a dry cough. (1) Community Acquired Pneumonia and Acute Influenza A Viral Syndrome: CXR in the ED w/ bibasilar infiltrates worse on the left side with blunting of left costophrenic angle with follow-up CT chest with significant bilateral lower lobe pulmonary infiltrates and subsegmental atelectasis secondary to pneumonia, right upper lobe pulmonary infiltrate, minimal pulmonary infiltrates right middle lobe as well as left upper lobe, indeterminate 5 mm pulmonary nodule within the left upper lobe, multilevel spondylosis of the thoracic and lumbar spine, right adrenal adenoma, left shoulder surgical clips present as well as a 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 Admitted to [place], maintain on oxygen with wean as tolerated to room air, continue ATC duonebs, PRN albuterol, maintained on IV Rocephin and Azithromycin, HOB, IS parameters w/ pending sputum cultures, respiratory viral panel not resulted in computer but noted + influenza with initiation on tamiflu, noted negative urine antigens. Bld cx x 2 obtained in the ED. PT, OT, CM consulted, awaiting precertification for TCU, discharge likely tomorrow. (2) Diarrhea, Possible secondary to #1, possible Gastroenteritis: Will continue aggressive hydration, will obtain c diff, stool cx, trend CBC, on abx secondary to acute presentation as noted #1, anti-emetics, pain regimen PRN. (3) Acute kidney injury: Secondary to acute presentation with pneumonia and gastroenteritis with GI losses as well as poor oral intake recently. Admission BUN/Cr 50/1.43, prior baseline creatinine noted to be 0.7-1. Hydrated, repeat 11/25/18 BUN/Cr 23/0.88, improving. (4) Acute on Chronic Normocytic, Fe Deficiency Anemia: Admission Hgb 8, repeat 7.2, given underlying CAD s/p CABG and PAF history as well as hypoxia w/ acute presentation CAP as noted, administered 2 u PRBC, repeat HH 8.8, continue to trend CBC. Continue home iron supplementation. (5) CAD: s/p CABG x 4, MONTERO to LAD, EPIFANIO to the Distal RCA, Right Radial Artery to the OM branch of CX, and Reverse SVG from the aorta to the Distal RCA 08/17/01, maintain on aspirin, statin, not on beta-genevieve but on diltiazem, holding lisinopril given IDALIA and low normal BPs. (6) Hypertension: Continue home regimen including diltiazem, isosorbide, holding lisinopril, PRN hydralazine. (7) Hyperlipidemia: Continue home statin regimen. (8) Diabetes mellitus type II: Hold oral home regimen, continue home insulin regimen, ADA diet, accu checks w/ ISS. (9) Parkinson's disease: Continue home carbidopa-levodopa as well as entacapone regimen, fall precautions, PT, OT, case management evaluations for discharge planning. (10) Hypothyroidism: Continue home synthroid regimen. (11) Anxiety and depression: Continue home Wellbutrin, sertraline regimen. (12) GERD: PPI. (13) DVT prophylaxis: SCDs, renally dosed lovenox. Code Visit Inpatient E&M: 94110 Subs Hosp L2
--- NOTE | 2018-11-25 07:06 | PN_ITS ---
Patient Problems: Active and Suspected Problems (Last Reviewed 11/23/18 @ 21:58 by Vick Gay MD) Community acquired pneumonia (Acute) Subjective: Patient overnight with loosening of his cough, more productive, notes breathing has improved but coughing has increased, more harsh. Overnight positive influenza on respiratory viral panel resulted with initiation of Tamiflu. Patient evaluated per therapies day prior and now amenable to TCU transition. TC precertification pending. Patient denies fevers, chills, nausea, emesis, abdominal pain, chest pain or worsened dyspnea. Objective: Physical Examination: General: awake, alert, oriented x 3 and cooperative, seated upright, coughing, more harsh but notes improved. Skin: normal color, turgor, no icterus, cyanosis occasional staged ecchymoses to the extremities. HEENT: AT/NC, EOMI, PERRLA, improved MMM. Lungs: Improved movement, more harsh coughing elicited with examination, mildly coarse, rhonchorous, no wheezing. Heart: Regular rate and rhythm; no gallop, rub audible. Abdomen: soft, NTTP, ND, normal BS. Extremities: no cyanosis, clubbing, lateral upper extremity tremors present, chronic Neurological: patient awake, alert, oriented x 3; cognitive function intact; pupils equally reactive to light and accomodation; cranial nerves II-XII grossly normal, moving all 4 extremities, no focal deficits, chronic primarily upper extremity tremors present, strength improved, remains moderately to severely globally decreased secondary to acute presentation. Psychiatric: affect appears moderately flat, no acute evidence of depressive or anxiety feelings. Vitals/I&O's: Vital Signs Temp Pulse Resp BP Pulse Ox 98.2 F 74 22 H 117/67 96 11/25/18 04:21 11/25/18 04:21 11/25/18 04:21 11/25/18 04:21 11/25/18 04:21 Oxygen Flow Rate (L/min) 4 Oxygen Delivery Method Nasal Cannula Weight: 167 lb 12.348 oz Body Mass Index (BMI) 27.9 Intake and Output for Last 24 Hours 11/23/18 11/24/18 11/25/18 23:59 23:59 23:59 Intake Total 2519 / 2519 400 / 400 Output Total 1999 / 1999 500 / 500 Balance 519 / 519 -100 / -100 Microbiology Past 72 Hours 11/23/18 16:00 Urine, Clean Catch Streptococcus pneumoniae Antigen (M - Final 11/23/18 16:00 Urine, Clean Catch Legionella Antigen - Final Laboratory Results 11/24/18 06:05: Sodium 138, Potassium 3.7, Chloride 109 H, Carbon Dioxide 23.0, Anion Gap 6, BUN 34 H, Creatinine 1.02, Estim Creat Clear Calc 55.27, Est GFR (MDRD) Af Amer 92, Est GFR (MDRD) Non-Af 76, BUN/Creatinine Ratio 33.3 H, Glucose 101, Calcium 8.1 L 11/24/18 06:05: WBC 9.3, RBC 2.56 L, Hgb 7.2 L, Hct 23.3 L, MCV 91.0, MCH 28.1, MCHC 30.9 L, RDW 16.0 H, RDW Differential 51.8 H, Plt Count 317, MPV 9.3, Immature Gran % (Auto) 0.400, Neut % (Auto) 89.2 H, Lymph % (Auto) 3.7 L, Benzie % (Auto) 6.6, Eos % (Auto) 0.1, Baso % (Auto) 0.0, Absolute Neuts (auto) 8.3 H, Absolute Lymphs (auto) 0.35 L, Total Counted Not Reportable, Differential Comment COMMENT 11/24/18 06:05: Cortisol 25.10 H 11/24/18 06:05: Plas Tot Catecholamine Pending, Dopamine Pending, Epinephrine Pending, Norepinephrine Pending 11/24/18 08:05: POC Glucose 130 H 11/24/18 12:09: POC Glucose 127 H 11/24/18 15:00: Blood Type A POSITIVE, Antibody Screen NEGATIVE, Crossmatch See Detail 11/24/18 16:39: POC Glucose 60 L 11/24/18 17:17: POC Glucose 97 11/24/18 22:06: POC Glucose 149 H 11/25/18 05:55: Hgb 8.8 L, Hct 27.7 L 11/25/18 05:55: Sodium 141, Potassium 3.6, Chloride 108 H, Carbon Dioxide 26.0, Anion Gap 7, BUN 23 H, Creatinine 0.88, Estim Creat Clear Calc 64.06, Est GFR (MDRD) Af Amer 109, Est GFR (MDRD) Non-Af 90, BUN/Creatinine Ratio 26.2 H, Glucose 89, Calcium 8.0 L 11/25/18 06:38: POC Glucose 85 Current Medications Acetaminophen (Tylenol) 650 mg PO Q6H PRN PRN PRN Reason: Mild Pain (1-3)/Temp > 100.7 F Albuterol Sulfate (Ventolin Aerosols) 2.5 mg INHALATION Q4HWA.RT [facility] Last Admin: 11/24/18 12:15 Dose: Not Given Albuterol/Ipratropium (Duoneb) 3 ml INHALATION Q6HWA.RT [facility] Last Admin: 11/25/18 07:03 Dose: 3 ml Aspirin (Aspirin) 325 mg PO DAILYCM [facility] Last Admin: 11/24/18 08:55 Dose: 325 mg Atorvastatin Calcium (Lipitor) 20 mg PO QHS [facility] Last Admin: 11/24/18 22:13 Dose: 20 mg Bupropion HCl (Wellbutrin Sr (150mg Tablets)) 150 mg PO BID [facility] Last Admin: 11/24/18 22:13 Dose: 150 mg Calamine/Phenol (Calmoseptine Ointment) 1 applic TOPICAL TID [facility]; Protocol Last Admin: 11/25/18 06:38 Dose: 1 applicatio Calcium/Vitamin D (Os-Severiano 500mg + D) 1 tablet PO DAILY [facility] Last Admin: 11/24/18 08:54 Dose: 1 tablet Carbidopa/Levodopa (Sinemet) 1.5 tablet PO Q6 [facility] Last Admin: 11/25/18 06:39 Dose: 1.5 tablet Cyanocobalamin (Vitamin B12) 1,000 mcg PO DAILY [facility] Last Admin: 11/24/18 08:54 Dose: 1,000 mcg Dextrose (D50w Syringe) 0 gm IV X1 PRN; Protocol PRN Reason: Hypoglycemia Diltiazem HCl (Cardizem Cd) 180 mg PO DAILY [facility] Last Admin: 11/24/18 10:23 Dose: 180 mg Enoxaparin Sodium (Lovenox) 30 mg SC DAILY@1000 [facility] Last Admin: 11/24/18 16:16 Dose: 30 mg Entacapone (Comtan) 200 mg PO Q6 [facility] Last Admin: 11/25/18 06:39 Dose: 200 mg Ferrous Sulfate (Ferrous Sulfate) 325 mg PO TIDCM [facility] Last Admin: 11/24/18 18:03 Dose: 325 mg Gabapentin (Neurontin) 600 mg PO BID [facility] Last Admin: 11/24/18 22:13 Dose: 600 mg Glucagon () 1 mg IM .X1 PRN PRN Reason: Hypoglycemia Guaifenesin (Mucinex) 1,200 mg PO BID [facility] Last Admin: 11/24/18 22:13 Dose: 1,200 mg Hydroxyzine HCl (Atarax Tablet) 10 mg PO TID PRN PRN PRN Reason: ANXIETY Sodium Chloride () 1,000 mls @ 15 mls/hr IV .Q48H [facility] Last Admin: 11/23/18 15:42 Dose: 15 mls/hr Azithromycin 500 mg/ Dextrose 255 mls @ 250 mls/hr IV Q24@2200 [facility] Last Admin: 11/24/18 22:13 Dose: 250 mls/hr Ceftriaxone Sodium (Rocephin) 1 gm in 50 mls @ 100 mls/hr IV Q24@2200 [facility] Last Admin: 11/24/18 21:21 Dose: 100 mls/hr Insulin Glargine (Lantus (Bkc)) 26 units SC QHS [facility] Last Admin: 11/24/18 22:13 Dose: 26 u Insulin Human Lispro (Humalog Kwikpen (Bkc)) 5 unit SC BREAKFAST [facility] Last Admin: 11/24/18 08:53 Dose: 5 units Insulin Human Lispro (Humalog Kwikpen (Bkc)) 6 unit SC LUNCH [facility] Last Admin: 11/24/18 12:14 Dose: 6 units Insulin Human Lispro (Humalog Kwikpen (Bkc)) 7 unit SC DINNER [facility] Last Admin: 11/24/18 16:59 Dose: Not Given Insulin Human Lispro (Humalog Kwikpen (Bkc)) 0 unit SC ACHS [facility]; Protocol Last Admin: 11/25/18 06:40 Dose: Not Given Isosorbide Mononitrate (Imdur) 60 mg PO DAILY [facility] Last Admin: 11/24/18 10:24 Dose: 60 mg Levothyroxine Sodium (Synthroid) 137 mcg PO DAILY@0600 [facility] Last Admin: 11/25/18 06:39 Dose: 137 mcg Ondansetron HCl (Zofran) 4 mg IV Q8H PRN PRN PRN Reason: NAUSEA Oseltamivir Phosphate (Tamiflu) 30 mg PO BID [facility] Stop: 11/29/18 10:01 Last Admin: 11/25/18 06:39 Dose: 30 mg Pantoprazole Sodium (Protonix) 20 mg PO BID [facility] Last Admin: 11/24/18 22:13 Dose: 20 mg Sertraline HCl (Zoloft) 150 mg PO DAILY [facility] Last Admin: 11/24/18 10:31 Dose: 150 mg Sodium Chloride () 5 - 15 ml IV UD PRN PRN Reason: SALINE FLUSH Last Admin: 11/24/18 22:07 Dose: 10 ml Medical Necessity - Tobacco Use Smoking Status: Former smoker Assessment/Plan All Active Problems (Last Reviewed 11/23/18 @ 21:58 by Vick Gay MD) Community acquired pneumonia (Acute) Carotid bruit (Acute) Paroxysmal ventricular tachycardia (Acute) The patient is a 73 y/o M w/ PMHx: CAD s/p CABG x 4, HTN, HLD, Diabetes mellitus type II, PAF, Parkinson's disease who presents to the [facility] ED on 11/23/18 with history of progressively worsening weakness, fatigue, recent fall while using his walking device but stated that he was unable to get up with recent concurrent 2-week history of loose stools with no associated market nausea or emesis but some abdominal cramping, poor appetite as well as a dry cough. (1) Community Acquired Pneumonia and Acute Influenza A Viral Syndrome: CXR in the ED w/ bibasilar infiltrates worse on the left side with blunting of left costophrenic angle with follow-up CT chest with significant bilateral lower lobe pulmonary infiltrates and subsegmental atelectasis secondary to pneumonia, right upper lobe pulmonary infiltrate, minimal pulmonary infiltrates right middle lobe as well as left upper lobe, indeterminate 5 mm pulmonary nodule within the left upper lobe, multilevel spondylosis of the thoracic and lumbar spine, right adrenal adenoma, left shoulder surgical clips present as well as a 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 Admitted to [place], maintain on oxygen with wean as tolerated to room air, continue ATC duonebs, PRN albuterol, maintained on IV Rocephin and Azithromycin, HOB, IS parameters w/ pending sputum cultures, respiratory viral panel not resulted in computer but noted + influenza with initiation on tamiflu, noted negative urine antigens. Bld cx x 2 obtained in the ED. PT, OT, CM consulted, awaiting precertification for TCU, discharge likely tomorrow. (2) Diarrhea, Possible secondary to #1, possible Gastroenteritis: Will continue aggressive hydration, will obtain c diff, stool cx, trend CBC, on abx secondary to acute presentation as noted #1, anti-emetics, pain regimen PRN. (3) Acute kidney injury: Secondary to acute presentation with pneumonia and gastroenteritis with GI losses as well as poor oral intake recently. Admission BUN/Cr 50/1.43, prior baseline creatinine noted to be 0.7-1. Hydrated, repeat 11/25/18 BUN/Cr 23/0.88, improving. (4) Acute on Chronic Normocytic, Fe Deficiency Anemia: Admission Hgb 8, repeat 7.2, given underlying CAD s/p CABG and PAF history as well as hypoxia w/ acute presentation CAP as noted, administered 2 u PRBC, repeat HH 8.8, continue to trend CBC. Continue home iron supplementation. (5) CAD: s/p CABG x 4, MONTERO to LAD, EPIFANIO to the Distal RCA, Right Radial Artery to the OM branch of CX, and Reverse SVG from the aorta to the Distal RCA 08/17/01, maintain on aspirin, statin, not on beta-genevieve but on diltiazem, holding lisinopril given IDALIA and low normal BPs. (6) Hypertension: Continue home regimen including diltiazem, isosorbide, holding lisinopril, PRN hydralazine. (7) Hyperlipidemia: Continue home statin regimen. (8) Diabetes mellitus type II: Hold oral home regimen, continue home insulin regimen, ADA diet, accu checks w/ ISS. (9) Parkinson's disease: Continue home carbidopa-levodopa as well as entacapone regimen, fall precautions, PT, OT, case management evaluations for discharge planning. (10) Hypothyroidism: Continue home synthroid regimen. (11) Anxiety and depression: Continue home Wellbutrin, sertraline regimen. (12) GERD: PPI. (13) DVT prophylaxis: SCDs, renally dosed lovenox. Code Visit Inpatient E&M: 24934 Subs Hosp L2
--- NOTE | 2018-11-25 08:21 | PCM.TXEXTCAR ---
- Diet 11/23/18 21:32 Diet: Regular Diet Food consistency:: Regular Liquid Consistency:: Regular/Thin Is pt able to select menu?: Yes - Routine Orders/Code Status Enema Type: Fleetz Enema Frequency: Daily PRN Suppository Type: Dulcolax 10mg Suppository Frequency: Daily PRN O2 Liters per Minute: 3 O2 Frequency: Continuous Keep PO Greater than or Equal to (%): 92 Routine Lab Work: CBC, BMP, - - Repeat labs within 3-5 days. Code Status: Full Code - Suggestions for Active Care Change Position every (hours): 2 Hours to sit in a chair: 6 Times a day to sit in chair: 3 - Therapies Weight Bearing: Full weight bearing Physical Therapy: Eval and Treat Occupational Therapy: Eval and Treat - Problem/Diagnosis (1) Community acquired pneumonia Status: Acute Current Visit: Yes (2) Influenza A Status: Acute Current Visit: Yes (3) IDALIA (acute kidney injury) Status: Acute Current Visit: Yes (4) Atherosclerotic heart disease of [place] coronary artery without angina pectoris Status: Chronic Comment: CABG x4- MONTERO to LAD, EPIFANIO to the Distal RCA, Right Radial Artery to the OM branch of CX, and Reverse SVG from the aorta to the Distal RCA 08/17/01 Current Visit: No (5) Aortocoronary bypass status Status: Chronic Comment: CABG x4- MONTERO to LAD, EPIFANIO to the Distal RCA, Right Radial Artery to the OM branch of CX, and Reverse SVG from the aorta to the Distal RCA 08/17/01 Current Visit: No (6) Hyperlipidemia Status: Chronic Current Visit: No (7) Hypertension Status: Chronic Current Visit: No (8) Implantable cardioverter-defibrillator (ICD) in situ Status: Chronic Current Visit: No (9) Type 2 diabetes mellitus Status: Chronic Current Visit: No (10) Atrial fibrillation Status: Chronic Current Visit: No - Allergies/Procedures Done in Hospital Allergies/Adverse Reactions: Allergies Iodine and Iodide Containing Produc Allergy (Verified 11/23/18 15:05) Shortness of breath simvastatin Adverse Reaction (Verified 11/23/18 15:05) Other Procedures: EKG - Type of Care/Length of Stay Estimated LOS: Convalescent Care Less Than 30 days Type of Care Needed: Skilled Rehab Potential: Good Prognosis: Good - Additional Orders/Day of Discharge Additional Orders: (1) HOB. (2) IS 10x/hr 7a-7p. (3) Fall and aspiration precautions. (4) Out of bed to chair or meal room for all meals. (5) Complete all antibiotic therapies and tamiflu regimen. H&P will serve as current which was dated: 11/23/18 Day of Discharge: 11/25/18 - Follow Up Care Primary Care Physician: Roselyn Goldberg MD [Primary Care Provider] - Please follow up with your Primary Care Physician in: Follow-up within 1-2 days SNF discharge plan.
[2018-11-25] MEDS: Ferrous Sulfate 325 MG Tablet PO ×3 (08:31→17:37)
[2018-11-25] MEDS: Aspirin 325 MG Tablet PO (08:31)
[2018-11-25] MEDS: dilTIAZem CD 180 MG Capsule PO (08:32)
[2018-11-25] MEDS: Insulin Lispro 100 UNIT/ML INSULN.PEN SC ×2 (08:32→21:55)
[2018-11-25] MEDS: guaiFENesin 1,200 MG Tablet 1200 MG PO ×2 (08:33→21:31)
[2018-11-25] MEDS: Isosorbide Mononitrate 60 MG Tablet PO (08:33)
[2018-11-25] MEDS: Calcium Carb/Vitamin D 1 TABLET Tablet PO (08:34)
[2018-11-25] MEDS: Pantoprazole Sodium 20 MG Tablet PO ×2 (08:34→21:32)
[2018-11-25] MEDS: Sertraline 50 MG Tablet 150 MG PO (08:35)
[2018-11-25] MEDS: Cyanocobalamin 500 MCG Tablet 1000 MCG PO (08:35)
[2018-11-25] MEDS: buPROPion (SR) 150 MG Tablet.SA PO ×2 (08:35→21:42)
[2018-11-25] MEDS: Gabapentin 600 MG Tablet PO ×2 (08:40→21:38)
[2018-11-25] MEDS: Enoxaparin 30 MG/0.3 ML Syringe SC (08:41)
--- NOTE | 2018-11-25 09:55 | CASEMGMT ---
Social Work Note JUNE spoke with Dayana with [facility] who states she hasn't obtained pre-cert yet. JUNE informed Dayana pt is ready for discharge once pre-cert is obtained. Plan: TCU pending pre-cert Angela Zaragoza PAPER PATTERN FOLDER, DIRECTOR OF TRANSPORTATION
[2018-11-25] MEDS: Acetaminophen 325 MG Tablet 650 MG PO ×3 (11:29→23:50)
[2018-11-25 11:46] LABS: Bedside Glucose 62 mg/dL (70-110)
--- NOTE | 2018-11-25 15:19 | CASEMGMT ---
Social Work Note JUNE updated pt's daughter is requesting to speak to this worker. SW in to speak with pt and pt's daughter Christel present in room. JUNE updated Christel that this worker spoke with pt and son in law yesterday and pt was agreeable to TCU at [facility]. JUNE explained referral was made and pre-cert has been submitted. Christel states that she works at [facility] and is requesting pt to go there for short term rehabilitation. JUNE explained that process has been started and it would delay the process of obtaining pre-cert and pt may get denied. Christel states she would prefer [facility] so she can see her father while she is at work. Christel adamant about pt going to [facility] and pt now agreeable to [facility]. JUNE explained that referral process will need to be started over again and that will delay pt's discharge. Pt and Christel state understanding. JUNE placed a call to Ana Maria in admissions at [facility]. Ana Maria states she has male beds available, is in network with pt's insurance and will review referral. JUNE informed Ana Maria that pt is ready for discharge once pre-cert is obtained. JUNE faxed referral to [facility]. JUNE placed a call to Dayana with [facility] and left her a message to cancel pre-cert for pt as pt is going to different facility now. Plan: [facility] pending acceptance and pre-cert Angela Zaragoza AUDIT CLERKS SUPERVISOR, CONSUMER INSIGHTS SPECIALIST
--- NOTE | 2018-11-25 15:29 | NURSING ---
O2 DECREASED TO 1L NC - WILL MONITOR
[2018-11-25] MEDS: HYDROcodone Bitartrate/Apap 5/325 Tablet PO (16:30)
[2018-11-25 16:40] LABS: Bedside Glucose 118 mg/dL (70-110)
[2018-11-25] MEDS: Insulin Lispro 100 UNIT/ML INSULN.PEN 7 UNIT SC (17:33)
[2018-11-25] MEDS: Ceftriaxone 1 GM/50 ML BAG IV (21:38)
[2018-11-25] MEDS: 0.9% NaCl Peripheral Flush Adult/Peds IV (21:38)
[2018-11-25] MEDS: Atorvastatin Calcium 20 MG Tablet PO (21:38)
[2018-11-25 22:36] LABS: Bedside Glucose 185 mg/dL (70-110)
[2018-11-26 03:47] VITALS: BP 113/60; PULSE 72; RESP 20; TEMP 36.6; O2SAT 92
[2018-11-26] MEDS: Menthol/Lanolin/Calamine/Znox 113 GM Tube 1 APPLIC TOPICAL ×2 (05:35→14:54)
[2018-11-26] MEDS: Levothyroxine 137 MCG Tablet PO (05:35)
[2018-11-26] MEDS: Carbidopa/Levodopa 25/250 Tablet PO ×3 (05:36→17:02)
[2018-11-26] MEDS: HYDROcodone Bitartrate/Apap 5/325 Tablet PO ×2 (05:51→17:02)
[2018-11-26 06:20] LABS: Anion Gap 8 (5-15); BUN 15 mg/dL (7-18); BUN/Creat Ratio 20.3 RATIO (10-20); Calcium,Total 8.4 mg/dL (8.5-10.1); Chloride 106 mmol/L (98-107); Creatinine, Serum 0.74 mg/dL (0.70-1.30); EST Glomerular Filtration Rate 110 mL/min (>60); Est Glom Filt Rate - Afr Amer 133 mL/min (>60); Estimated Creatinine Clearance 56.38 ml/min; Glucose 101 mg/dL (74-106); Potassium 3.6 mmol/L (3.5-5.1); Sodium Level 138 mmol/L (136-145)
[2018-11-26 06:46] LABS: Absolute Lymphocyte Count 0.45 X10^3/ul (0.83-4.51); Absolute Neutrophil Count 5.9 X10^3/uL (2.0-7.7); Basophil# 0.01 X10^3/uL; Basophil% 0.1 % (0-1); Eosinophil# 0.06 X10^3/uL; Eosinophils% 0.8 % (0-5); Hematocrit 28.5 % (40-54); Lymphocyte # 0.45 X10^3/ul (4.0); Lymphocyte % 5.9 % (19-41); Mean Corp Hgb Conc 31.6 g/gl (32-36); Mean Corpuscular Hgb 28.1 pg (27.0-32.0); Mean Corpuscular Volume 89.1 fL (80-94); Mean Platelet Vol. 9.1 fl (6.2-12.0); Monocyte# 1.12 X10^3/uL; Monocyte% 14.7 % (0-10); Neutrophil # 5.87 X10^3/uL (2.7-7.7); Neutrophil % 77.1 % (47-70); Platelet Count 349 K/mm3 (150-450); RBC Distribution Width CV 15.7 % (11.6-14.6); RBC Distribution Width SD 49.8 fl (35.1-43.9); White Blood Count 7.6 K/mm3 (4.4-11.0)
[2018-11-26 06:54] LABS: Differential Indicated SCAN CRITERIA MET; POSITIVE COUNT NO; POSITIVE DIFFERENTIAL YES; POSITIVE MORPHOLOGY NO
[2018-11-26 06:55] VITALS: PULSE 88; RESP 20; O2SAT 95
[2018-11-26] MEDS: Ipratropium/Albuterol Sulfate 3 ML AMPUL.NEB INHALATION ×2 (06:55→12:56)
[2018-11-26 07:39] VITALS: BP 131/59; PULSE 73; RESP 18; TEMP 36.7; O2SAT 92
[2018-11-26 07:51] LABS: Bedside Glucose 104 mg/dL (70-110)
[2018-11-26] MEDS: Ferrous Sulfate 325 MG Tablet PO ×3 (08:43→17:02)
[2018-11-26] MEDS: Aspirin 325 MG Tablet PO (08:43)
[2018-11-26] MEDS: Enoxaparin 30 MG/0.3 ML Syringe SC (08:44)
[2018-11-26] MEDS: dilTIAZem CD 180 MG Capsule PO (08:44)
[2018-11-26] MEDS: Insulin Lispro 100 UNIT/ML INSULN.PEN SC (08:44)
[2018-11-26] MEDS: Pantoprazole Sodium 20 MG Tablet PO (08:45)
[2018-11-26] MEDS: Sertraline 50 MG Tablet 150 MG PO (08:45)
[2018-11-26] MEDS: Gabapentin 600 MG Tablet PO (08:45)
[2018-11-26] MEDS: Oseltamivir Phosphate 30 MG Capsule PO (08:45)
[2018-11-26] MEDS: guaiFENesin 1,200 MG Tablet 1200 MG PO (08:45)
[2018-11-26] MEDS: buPROPion (SR) 150 MG Tablet.SA PO (08:45)
[2018-11-26] MEDS: Cyanocobalamin 500 MCG Tablet 1000 MCG PO (08:45)
[2018-11-26] MEDS: Calcium Carb/Vitamin D 1 TABLET Tablet PO (08:45)
[2018-11-26] MEDS: Acetaminophen 325 MG Tablet 650 MG PO (08:46)
[2018-11-26] MEDS: Isosorbide Mononitrate 60 MG Tablet PO (08:48)
--- NOTE | 2018-11-26 09:13 | PCM.PN.HOSP ---
Patient Problems: Active and Suspected Problems (Last Reviewed 11/23/18 @ 21:58 by Vick Gay MD) Community acquired pneumonia (Acute) Influenza A (Acute) IDALIA (acute kidney injury) (Acute) Subjective: Patient with no acute events overnight per self and per nursing report. Patient is feeling improved, less coughing, no market dyspnea, tolerating therapies. He does have bilateral hand and thumb braces on and has had chronic issues with his thumb which intermittent can be worse. He is requesting assistance with eating this morning secondary to these comorbidities. Discussed plan of care which included awaiting certification for [facility] facility transition as he and his daughter had changed the facility choice yesterday late afternoon. Patient denies fevers, chills, nausea, emesis, abdominal pain, chest pain or recurrent or worsened dyspnea. Objective: Physical Examination: General: awake, alert, oriented x 3 and cooperative, seated upright, improved appearance, no coughing during examination. Skin: normal color, turgor, no icterus, cyanosis occasional staged ecchymoses to the extremities. HEENT: AT/NC, EOMI, PERRLA, MMM. Lungs: Improved air movement, no coughing listed with examination, less coarse, less rhonchorous, no wheezing. Heart: Regular rate and rhythm; no gallop, rub audible. Abdomen: soft, NTTP, ND, normal BS. Extremities: no cyanosis, clubbing, lateral upper extremity tremors present, chronic, bilateral hand and thumb braces in place. Neurological: patient awake, alert, oriented x 3; cognitive function intact; pupils equally reactive to light and accomodation; cranial nerves II-XII grossly normal, moving all 4 extremities although limited by chronic upper extremity tremors and chronic discomfort in his hands and thumbs, braces in place, strength improved, remains moderately globally decreased secondary to acute presentation. Psychiatric: affect appears moderately improved, less flat, no acute evidence of depressive or anxiety feelings. Vitals/I&O's: Vital Signs Temp Pulse Resp BP Pulse Ox 98.1 F 73 18 131/59 H 92 11/26/18 07:39 11/26/18 07:39 11/26/18 07:39 11/26/18 07:39 11/26/18 07:39 Oxygen Flow Rate (L/min) 2 Oxygen Delivery Method Nasal Cannula Weight: 167 lb 12.348 oz Body Mass Index (BMI) 27.9 Intake and Output for Last 24 Hours 11/24/18 11/25/18 11/26/18 23:59 23:59 23:59 Intake Total 2519 / 2519 1240 / 1240 623 / 623 Output Total 1999 500 / 500 500 / 500 Balance 519 / 519 740 / 740 123 / 123 Microbiology Past 72 Hours 11/25/18 19:45 Stool Stool Lactoferrin - Final 11/24/18 15:25 Mucosa - Nasopharyngeal Respiratory Panel (PCR) - Final Influenza A (Subtype H3) 11/23/18 16:00 Urine, Clean Catch Streptococcus pneumoniae Antigen (M - Final 11/23/18 16:00 Urine, Clean Catch Legionella Antigen - Final Laboratory Results 11/25/18 11:27: POC Glucose 62 L 11/25/18 16:35: POC Glucose 118 H 11/25/18 21:54: POC Glucose 185 H 11/26/18 05:36: WBC 7.6, RBC 3.20 L, Hgb 9.0 L, Hct 28.5 L, MCV 89.1, MCH 28.1, MCHC 31.6 L, RDW 15.7 H, RDW Differential 49.8 H, Plt Count 349, MPV 9.1, Immature Gran % (Auto) 1.400 H, Neut % (Auto) 77.1 H, Lymph % (Auto) 5.9 L, Ashley % (Auto) 14.7 H, Eos % (Auto) 0.8, Baso % (Auto) 0.1, Absolute Neuts (auto) 5.9, Absolute Lymphs (auto) 0.45 L, Total Counted Not Reportable 11/26/18 05:36: Sodium 138, Potassium 3.6, Chloride 106, Carbon Dioxide 24.0, Anion Gap 8, BUN 15, Creatinine 0.74, Estim Creat Clear Calc 56.38, Est GFR (MDRD) Af Amer 133, Est GFR (MDRD) Non-Af 110, BUN/Creatinine Ratio 20.3 H, Glucose 101, Calcium 8.4 L 11/26/18 07:37: POC Glucose 104 Current Medications Acetaminophen (Tylenol) 650 mg PO Q6H PRN PRN PRN Reason: Mild Pain (1-3)/Temp > 100.7 F Last Admin: 11/26/18 08:46 Dose: 650 mg Hydrocodone Bitart/Acetaminophen ([place] 5mg-325mg) 1 tablet PO Q6H PRN PRN PRN Reason: MOD-SEVERE PAIN (4-10/10) Last Admin: 11/26/18 05:51 Dose: 1 tablet Albuterol Sulfate (Ventolin Aerosols) 2.5 mg INHALATION Q4HWA.RT [facility] Last Admin: 11/25/18 07:03 Dose: Not Given Albuterol/Ipratropium (Duoneb) 3 ml INHALATION Q6HWA.RT [facility] Last Admin: 11/26/18 06:55 Dose: 3 ml Aspirin (Aspirin) 325 mg PO DAILYCM [facility] Last Admin: 11/26/18 08:43 Dose: 325 mg Atorvastatin Calcium (Lipitor) 20 mg PO QHS [facility] Last Admin: 11/25/18 21:38 Dose: 20 mg Bupropion HCl (Wellbutrin Sr (150mg Tablets)) 150 mg PO BID [facility] Last Admin: 11/26/18 08:45 Dose: 150 mg Calamine/Phenol (Calmoseptine Ointment) 1 applic TOPICAL TID [facility]; Protocol Last Admin: 11/26/18 05:35 Dose: 1 applicatio Calcium/Vitamin D (Os-Severiano 500mg + D) 1 tablet PO DAILY [facility] Last Admin: 11/26/18 08:45 Dose: 1 tablet Carbidopa/Levodopa (Sinemet) 1.5 tablet PO Q6 [facility] Last Admin: 11/26/18 05:36 Dose: 1.5 tablet Cyanocobalamin (Vitamin B12) 1,000 mcg PO DAILY [facility] Last Admin: 11/26/18 08:45 Dose: 1,000 mcg Dextrose (D50w Syringe) 0 gm IV X1 PRN; Protocol PRN Reason: Hypoglycemia Diltiazem HCl (Cardizem Cd) 180 mg PO DAILY [facility] Last Admin: 11/26/18 08:44 Dose: 180 mg Enoxaparin Sodium (Lovenox) 30 mg SC DAILY@1000 [facility] Last Admin: 11/26/18 08:44 Dose: 30 mg Entacapone (Comtan) 200 mg PO Q6 [facility] Last Admin: 11/26/18 05:36 Dose: 200 mg Ferrous Sulfate (Ferrous Sulfate) 325 mg PO TIDCM [facility] Last Admin: 11/26/18 08:43 Dose: 325 mg Gabapentin (Neurontin) 600 mg PO BID [facility] Last Admin: 11/26/18 08:45 Dose: 600 mg Glucagon () 1 mg IM .X1 PRN PRN Reason: Hypoglycemia Guaifenesin (Mucinex) 1,200 mg PO BID [facility] Last Admin: 11/26/18 08:45 Dose: 1,200 mg Hydroxyzine HCl (Atarax Tablet) 10 mg PO TID PRN PRN PRN Reason: ANXIETY Sodium Chloride () 1,000 mls @ 15 mls/hr IV .Q48H [facility] Last Admin: 11/25/18 17:09 Dose: Not Given Azithromycin 500 mg/ Dextrose 255 mls @ 250 mls/hr IV Q24@2200 [facility] Last Admin: 11/25/18 22:50 Dose: 250 mls/hr Ceftriaxone Sodium (Rocephin) 1 gm in 50 mls @ 100 mls/hr IV Q24@2200 [facility] Last Admin: 11/25/18 21:38 Dose: 100 mls/hr Insulin Glargine (Lantus (Bkc)) 26 units SC QHS [facility] Last Admin: 11/25/18 21:57 Dose: 26 u Insulin Human Lispro (Humalog Kwikpen (Bkc)) 5 unit SC BREAKFAST [facility] Last Admin: 11/26/18 08:44 Dose: 5 units Insulin Human Lispro (Humalog Kwikpen (Bkc)) 6 unit SC LUNCH [facility] Last Admin: 11/25/18 12:33 Dose: Not Given Insulin Human Lispro (Humalog Kwikpen (Bkc)) 7 unit SC DINNER [facility] Last Admin: 11/25/18 17:33 Dose: 7 units Insulin Human Lispro (Humalog Kwikpen (Bkc)) 0 unit SC ACHS [facility]; Protocol Last Admin: 11/26/18 08:25 Dose: Not Given Isosorbide Mononitrate (Imdur) 60 mg PO DAILY [facility] Last Admin: 11/26/18 08:48 Dose: 60 mg Levothyroxine Sodium (Synthroid) 137 mcg PO DAILY@0600 [facility] Last Admin: 11/26/18 05:35 Dose: 137 mcg Ondansetron HCl (Zofran) 4 mg IV Q8H PRN PRN PRN Reason: NAUSEA Oseltamivir Phosphate (Tamiflu) 30 mg PO BID [facility] Stop: 11/29/18 10:01 Last Admin: 11/26/18 08:45 Dose: 30 mg Pantoprazole Sodium (Protonix) 20 mg PO BID [facility] Last Admin: 11/26/18 08:45 Dose: 20 mg Sertraline HCl (Zoloft) 150 mg PO DAILY [facility] Last Admin: 11/26/18 08:45 Dose: 150 mg Sodium Chloride () 5 - 15 ml IV UD PRN PRN Reason: SALINE FLUSH Last Admin: 11/25/18 21:38 Dose: 10 ml Medical Necessity - Tobacco Use Smoking Status: Former smoker Assessment/Plan All Active Problems (Last Reviewed 11/23/18 @ 21:58 by Vick Gay MD) Community acquired pneumonia (Acute) Influenza A (Acute) IDALIA (acute kidney injury) (Acute) Carotid bruit (Acute) Paroxysmal ventricular tachycardia (Acute) The patient is a 73 y/o M w/ PMHx: CAD s/p CABG x 4, HTN, HLD, Diabetes mellitus type II, PAF, Parkinson's disease who presents to the [facility] ED on 11/23/18 with history of progressively worsening weakness, fatigue, recent fall while using his walking device but stated that he was unable to get up with recent concurrent 2-week history of loose stools with no associated market nausea or emesis but some abdominal cramping, poor appetite as well as a dry cough. (1) Community Acquired Pneumonia and Acute Influenza A Viral Syndrome: CXR in the ED w/ bibasilar infiltrates worse on the left side with blunting of left costophrenic angle with follow-up CT chest with significant bilateral lower lobe pulmonary infiltrates and subsegmental atelectasis secondary to pneumonia, right upper lobe pulmonary infiltrate, minimal pulmonary infiltrates right middle lobe as well as left upper lobe, indeterminate 5 mm pulmonary nodule within the left upper lobe, multilevel spondylosis of the thoracic and lumbar spine, right adrenal adenoma, left shoulder surgical clips present as well as a 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 Admitted to [facility], maintain on oxygen with wean as tolerated to room air, continue ATC duonebs, PRN albuterol, maintained on IV Rocephin and Azithromycin, HOB, IS parameters w/ pending sputum cultures, respiratory viral panel not resulted in computer but noted + influenza with initiation on tamiflu, noted negative urine antigens. Bld cx x 2 obtained in the ED. PT, OT, CM consulted, family changed [facility] facility choice yesterday afternoon therefore awaiting [facility] precertification, possibly today or 11/27/18. (2) Diarrhea, Possible likely secondary to #1, acute influenza A viral syndrome with concurrent pneumonia: Proved clinically, hydrated, stool lactoferrin with positive WBC, enteric pending however given influenza A result likely secondary to this. (3) Acute kidney injury: Secondary to acute presentation with pneumonia and gastroenteritis with GI losses as well as poor oral intake recently. Admission BUN/Cr 50/1.43, prior baseline creatinine noted to be 0.7-1. Hydrated, repeat 11/26/18 BUN/Cr 15/0.74, resolved. (4) Acute on Chronic Normocytic, Fe Deficiency Anemia: Admission Hgb 8, repeat 7.2, given underlying CAD s/p CABG and PAF history as well as hypoxia w/ acute presentation CAP as noted, administered 2 u PRBC, repeat HH 8.8, 11/27/18 Hgb 9.0. Continue home iron supplementation. (5) CAD: s/p CABG x 4, MONTERO to LAD, EPIFANIO to the Distal RCA, Right Radial Artery to the OM branch of CX, and Reverse SVG from the aorta to the Distal RCA 08/17/01, maintain on aspirin, statin, not on beta-genevieve but on diltiazem, hold lisinopril secondary to renal dysfunction upon admission, BPs were also low normal, will restart upon transition. (6) Hypertension: Continue home regimen including diltiazem, isosorbide, holding lisinopril, PRN hydralazine. (7) Hyperlipidemia: Continue home statin regimen. (8) Diabetes mellitus type II: Hold oral home regimen, continue home insulin regimen, ADA diet, accu checks w/ ISS. (9) Parkinson's disease: Continue home carbidopa-levodopa as well as entacapone regimen, fall precautions, PT, OT, case management evaluations for discharge planning. (10) Hypothyroidism: Continue home synthroid regimen. (11) Anxiety and depression: Continue home Wellbutrin, sertraline regimen. (12) PAF: Maintain on diltiazem, not anticoagulated given fall history, maintain on asa only. (13) GERD: PPI. (14) DVT prophylaxis: SCDs, renally dosed lovenox. Code Visit Inpatient E&M: 65068 Subs Hosp L2
--- NOTE | 2018-11-26 09:17 | PN_ITS ---
Patient Problems: Active and Suspected Problems (Last Reviewed 11/23/18 @ 21:58 by Vick Gay MD) Community acquired pneumonia (Acute) Influenza A (Acute) IDALIA (acute kidney injury) (Acute) Subjective: Patient with no acute events overnight per self and per nursing report. Patient is feeling improved, less coughing, no market dyspnea, tolerating therapies. He does have bilateral hand and thumb braces on and has had chronic issues with his thumb which intermittent can be worse. He is requesting assistance with eating this morning secondary to these comorbidities. Discussed plan of care which included awaiting certification for group home facility transition as he and his daughter had changed the facility choice yesterday late afternoon. Patient denies fevers, chills, nausea, emesis, abdominal pain, chest pain or recurrent or worsened dyspnea. Objective: Physical Examination: General: awake, alert, oriented x 3 and cooperative, seated upright, improved appearance, no coughing during examination. Skin: normal color, turgor, no icterus, cyanosis occasional staged ecchymoses to the extremities. HEENT: AT/NC, EOMI, PERRLA, MMM. Lungs: Improved air movement, no coughing listed with examination, less coarse, less rhonchorous, no wheezing. Heart: Regular rate and rhythm; no gallop, rub audible. Abdomen: soft, NTTP, ND, normal BS. Extremities: no cyanosis, clubbing, lateral upper extremity tremors present, chronic, bilateral hand and thumb braces in place. Neurological: patient awake, alert, oriented x 3; cognitive function intact; pupils equally reactive to light and accomodation; cranial nerves II-XII grossly normal, moving all 4 extremities although limited by chronic upper extremity tremors and chronic discomfort in his hands and thumbs, braces in place, strength improved, remains moderately globally decreased secondary to acute presentation. Psychiatric: affect appears moderately improved, less flat, no acute evidence of depressive or anxiety feelings. Vitals/I&O's: Vital Signs Temp Pulse Resp BP Pulse Ox 98.1 F 73 18 131/59 H 92 11/26/18 07:39 11/26/18 07:39 11/26/18 07:39 11/26/18 07:39 11/26/18 07:39 Oxygen Flow Rate (L/min) 2 Oxygen Delivery Method Nasal Cannula Weight: 167 lb 12.348 oz Body Mass Index (BMI) 27.9 Intake and Output for Last 24 Hours 11/24/18 11/25/18 11/26/18 23:59 23:59 23:59 Intake Total 2519 / 2519 1240 / 1240 623 / 623 Output Total 1999 500 / 500 500 / 500 Balance 519 / 519 740 / 740 123 / 123 Microbiology Past 72 Hours 11/25/18 19:45 Stool Stool Lactoferrin - Final 11/24/18 15:25 Mucosa - Nasopharyngeal Respiratory Panel (PCR) - Final Influenza A (Subtype H3) 11/23/18 16:00 Urine, Clean Catch Streptococcus pneumoniae Antigen (M - Final 11/23/18 16:00 Urine, Clean Catch Legionella Antigen - Final Laboratory Results 11/25/18 11:27: POC Glucose 62 L 11/25/18 16:35: POC Glucose 118 H 11/25/18 21:54: POC Glucose 185 H 11/26/18 05:36: WBC 7.6, RBC 3.20 L, Hgb 9.0 L, Hct 28.5 L, MCV 89.1, MCH 28.1, MCHC 31.6 L, RDW 15.7 H, RDW Differential 49.8 H, Plt Count 349, MPV 9.1, Immature Gran % (Auto) 1.400 H, Neut % (Auto) 77.1 H, Lymph % (Auto) 5.9 L, Mccl[place] % (Auto) 14.7 H, Eos % (Auto) 0.8, Baso % (Auto) 0.1, Absolute Neuts (auto) 5.9, Absolute Lymphs (auto) 0.45 L, Total Counted Not Reportable 11/26/18 05:36: Sodium 138, Potassium 3.6, Chloride 106, Carbon Dioxide 24.0, Anion Gap 8, BUN 15, Creatinine 0.74, Estim Creat Clear Calc 56.38, Est GFR (MDRD) Af Amer 133, Est GFR (MDRD) Non-Af 110, BUN/Creatinine Ratio 20.3 H, Glucose 101, Calcium 8.4 L 11/26/18 07:37: POC Glucose 104 Current Medications Acetaminophen (Tylenol) 650 mg PO Q6H PRN PRN PRN Reason: Mild Pain (1-3)/Temp > 100.7 F Last Admin: 11/26/18 08:46 Dose: 650 mg Hydrocodone Bitart/Acetaminophen ([place] 5mg-325mg) 1 tablet PO Q6H PRN PRN PRN Reason: MOD-SEVERE PAIN (4-10/10) Last Admin: 11/26/18 05:51 Dose: 1 tablet Albuterol Sulfate (Ventolin Aerosols) 2.5 mg INHALATION Q4HWA.RT [facility] Last Admin: 11/25/18 07:03 Dose: Not Given Albuterol/Ipratropium (Duoneb) 3 ml INHALATION Q6HWA.RT [facility] Last Admin: 11/26/18 06:55 Dose: 3 ml Aspirin (Aspirin) 325 mg PO DAILYCM [facility] Last Admin: 11/26/18 08:43 Dose: 325 mg Atorvastatin Calcium (Lipitor) 20 mg PO QHS [facility] Last Admin: 11/25/18 21:38 Dose: 20 mg Bupropion HCl (Wellbutrin Sr (150mg Tablets)) 150 mg PO BID [facility] Last Admin: 11/26/18 08:45 Dose: 150 mg Calamine/Phenol (Calmoseptine Ointment) 1 applic TOPICAL TID [facility]; Protocol Last Admin: 11/26/18 05:35 Dose: 1 applicatio Calcium/Vitamin D (Os-Severiano 500mg + D) 1 tablet PO DAILY [facility] Last Admin: 11/26/18 08:45 Dose: 1 tablet Carbidopa/Levodopa (Sinemet) 1.5 tablet PO Q6 [facility] Last Admin: 11/26/18 05:36 Dose: 1.5 tablet Cyanocobalamin (Vitamin B12) 1,000 mcg PO DAILY [facility] Last Admin: 11/26/18 08:45 Dose: 1,000 mcg Dextrose (D50w Syringe) 0 gm IV X1 PRN; Protocol PRN Reason: Hypoglycemia Diltiazem HCl (Cardizem Cd) 180 mg PO DAILY [facility] Last Admin: 11/26/18 08:44 Dose: 180 mg Enoxaparin Sodium (Lovenox) 30 mg SC DAILY@1000 [facility] Last Admin: 11/26/18 08:44 Dose: 30 mg Entacapone (Comtan) 200 mg PO Q6 [facility] Last Admin: 11/26/18 05:36 Dose: 200 mg Ferrous Sulfate (Ferrous Sulfate) 325 mg PO TIDCM [facility] Last Admin: 11/26/18 08:43 Dose: 325 mg Gabapentin (Neurontin) 600 mg PO BID [facility] Last Admin: 11/26/18 08:45 Dose: 600 mg Glucagon () 1 mg IM .X1 PRN PRN Reason: Hypoglycemia Guaifenesin (Mucinex) 1,200 mg PO BID [facility] Last Admin: 11/26/18 08:45 Dose: 1,200 mg Hydroxyzine HCl (Atarax Tablet) 10 mg PO TID PRN PRN PRN Reason: ANXIETY Sodium Chloride () 1,000 mls @ 15 mls/hr IV .Q48H [facility] Last Admin: 11/25/18 17:09 Dose: Not Given Azithromycin 500 mg/ Dextrose 255 mls @ 250 mls/hr IV Q24@2200 [facility] Last Admin: 11/25/18 22:50 Dose: 250 mls/hr Ceftriaxone Sodium (Rocephin) 1 gm in 50 mls @ 100 mls/hr IV Q24@2200 [facility] Last Admin: 11/25/18 21:38 Dose: 100 mls/hr Insulin Glargine (Lantus (Bkc)) 26 units SC QHS [facility] Last Admin: 11/25/18 21:57 Dose: 26 u Insulin Human Lispro (Humalog Kwikpen (Bkc)) 5 unit SC BREAKFAST [facility] Last Admin: 11/26/18 08:44 Dose: 5 units Insulin Human Lispro (Humalog Kwikpen (Bkc)) 6 unit SC LUNCH [facility] Last Admin: 11/25/18 12:33 Dose: Not Given Insulin Human Lispro (Humalog Kwikpen (Bkc)) 7 unit SC DINNER [facility] Last Admin: 11/25/18 17:33 Dose: 7 units Insulin Human Lispro (Humalog Kwikpen (Bkc)) 0 unit SC ACHS [facility]; Protocol Last Admin: 11/26/18 08:25 Dose: Not Given Isosorbide Mononitrate (Imdur) 60 mg PO DAILY [facility] Last Admin: 11/26/18 08:48 Dose: 60 mg Levothyroxine Sodium (Synthroid) 137 mcg PO DAILY@0600 [facility] Last Admin: 11/26/18 05:35 Dose: 137 mcg Ondansetron HCl (Zofran) 4 mg IV Q8H PRN PRN PRN Reason: NAUSEA Oseltamivir Phosphate (Tamiflu) 30 mg PO BID [facility] Stop: 11/29/18 10:01 Last Admin: 11/26/18 08:45 Dose: 30 mg Pantoprazole Sodium (Protonix) 20 mg PO BID [facility] Last Admin: 11/26/18 08:45 Dose: 20 mg Sertraline HCl (Zoloft) 150 mg PO DAILY [facility] Last Admin: 11/26/18 08:45 Dose: 150 mg Sodium Chloride () 5 - 15 ml IV UD PRN PRN Reason: SALINE FLUSH Last Admin: 11/25/18 21:38 Dose: 10 ml Medical Necessity - Tobacco Use Smoking Status: Former smoker Assessment/Plan All Active Problems (Last Reviewed 11/23/18 @ 21:58 by Vick Gay MD) Community acquired pneumonia (Acute) Influenza A (Acute) IDALIA (acute kidney injury) (Acute) Carotid bruit (Acute) Paroxysmal ventricular tachycardia (Acute) The patient is a 73 y/o M w/ PMHx: CAD s/p CABG x 4, HTN, HLD, Diabetes mellitus type II, PAF, Parkinson's disease who presents to the [facility] ED on 11/23/18 with history of progressively worsening weakness, fatigue, recent fall while using his walking device but stated that he was unable to get up with recent concurrent 2-week history of loose stools with no associated market nausea or emesis but some abdominal cramping, poor appetite as well as a dry cough. (1) Community Acquired Pneumonia and Acute Influenza A Viral Syndrome: CXR in the ED w/ bibasilar infiltrates worse on the left side with blunting of left costophrenic angle with follow-up CT chest with significant bilateral lower lobe pulmonary infiltrates and subsegmental atelectasis secondary to pneumonia, right upper lobe pulmonary infiltrate, minimal pulmonary infiltrates right middle lobe as well as left upper lobe, indeterminate 5 mm pulmonary nodule within the left upper lobe, multilevel spondylosis of the thoracic and lumbar spine, right adrenal adenoma, left shoulder surgical clips present as well as a 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 Admitted to CT, maintain on oxygen with wean as tolerated to room air, continue ATC duonebs, PRN albuterol, maintained on IV Rocephin and Azithromycin, HOB, IS parameters w/ pending sputum cultures, respiratory viral panel not resulted in computer but noted + influenza with initiation on tamiflu, noted negative urine antigens. Bld cx x 2 obtained in the ED. PT, OT, CM consulted, family changed group home facility choice yesterday afternoon therefore awaiting [facility] [place] [place] precertification, possibly today or 11/27/18. (2) Diarrhea, Possible likely secondary to #1, acute influenza A viral syndrome with concurrent pneumonia: Proved clinically, hydrated, stool lactoferrin with positive WBC, enteric pending however given influenza A result likely secondary to this. (3) Acute kidney injury: Secondary to acute presentation with pneumonia and gastroenteritis with GI losses as well as poor oral intake recently. Admission BUN/Cr 50/1.43, prior baseline creatinine noted to be 0.7-1. Hydrated, repeat 11/26/18 BUN/Cr 15/0.74, resolved. (4) Acute on Chronic Normocytic, Fe Deficiency Anemia: Admission Hgb 8, repeat 7.2, given underlying CAD s/p CABG and PAF history as well as hypoxia w/ acute presentation CAP as noted, administered 2 u PRBC, repeat HH 8.8, 11/27/18 Hgb 9.0. Continue home iron supplementation. (5) CAD: s/p CABG x 4, MONTERO to LAD, EPIFANIO to the Distal RCA, Right Radial Artery to the OM branch of CX, and Reverse SVG from the aorta to the Distal RCA 08/17/01, maintain on aspirin, statin, not on beta-genevieve but on diltiazem, hold lisinopril secondary to renal dysfunction upon admission, BPs were also low normal, will restart upon transition. (6) Hypertension: Continue home regimen including diltiazem, isosorbide, holding lisinopril, PRN hydralazine. (7) Hyperlipidemia: Continue home statin regimen. (8) Diabetes mellitus type II: Hold oral home regimen, continue home insulin re gimen, ADA diet, accu checks w/ ISS. (9) Parkinson's disease: Continue home carbidopa-levodopa as well as entacapone regimen, fall precautions, PT, OT, case management evaluations for discharge planning. (10) Hypothyroidism: Continue home synthroid regimen. (11) Anxiety and depression: Continue home Wellbutrin, sertraline regimen. (12) PAF: Maintain on diltiazem, not anticoagulated given fall history, maintain on asa only. (13) GERD: PPI. (14) DVT prophylaxis: SCDs, renally dosed lovenox. Code Visit Inpatient E&M: 09052 Subs Hosp L2
--- NOTE | 2018-11-26 11:22 | CASEMGMT ---
Social Work Note JUNE spoke with Dunia at [facility]. Dunia states she is able to accept pt and will submit for pre-cert. JUNE updated Dunia that pt is ready for discharge once pre-cert is obtained. Plan: [facility] pending pre-cert Angela Zaragoza MARKETING AUTOMATION MANAGER, PRODUCT ACCOUNTANT
[2018-11-26 11:45] LABS: Bedside Glucose 93 mg/dL (70-110)
[2018-11-26] MEDS: Insulin Lispro 100 UNIT/ML INSULN.PEN 6 UNIT SC (12:27)
[2018-11-26 12:56] VITALS: PULSE 85; RESP 20
[2018-11-26 14:00] VITALS: BP 129/63; PULSE 70; RESP 18; TEMP 36; O2SAT 94
--- NOTE | 2018-11-26 15:30 | CASEMGMT ---
Social Work Note SW received call from Dunia at [facility] stating she received pre-cert and pt is able to discharge to [facility] today. SW placed a call to pt's daughter Christel and left her a message informing her that pt is being discharged and asked if she would be able to bring portable tank from [facility] and transport pt to [facility]. JUNE did call [facility] and arranged transportation via wheelchair van for 5:30pm in the event pt's daughter is unable to transport pt. Physician updated on obtaining pre-cert. JUNE faxed completed discharge paperwork to [facility] including transfer to extended care facility, signed medication list and any scripts. Originals in SNF folder and copy on pt's chart. JUNE completed [facility] in [facility]. Originals in SNF folder and copy on pt's chart. SW received call from pt's daughter Christel stating she is leaving work and has a portable tank and will be coming to [facility] to transport pt to [facility] today. RN and [facility] updated on transportation time. Plan: Pt to discharge to [facility] skilled with family transporting Angela Nik SYSTEMS SOFTWARE MANAGER, CREATIVE ENGAGEMENT DIRECTOR
[2018-11-26 16:25] LABS: Bedside Glucose 55 mg/dL (70-110)
[2018-11-26 17:00] LABS: Bedside Glucose 82 mg/dL (70-110)
--- NOTE | 2018-11-26 17:25 | PCM.DC.SUM ---
Discharge Date and Diagnosis - Problem List Patient Problems: Active and Suspected Problems (Last Reviewed 11/23/18 @ 21:58 by Vick Gay MD) Community acquired pneumonia (Acute) Influenza A (Acute) IDALIA (acute kidney injury) (Acute) Date of Admission: 11/23/18 Date of Discharge: 11/26/18 - Primary Discharge Diagnosis Active and Suspected Problems (Last Reviewed 11/23/18 @ 21:58 by Vick Gay MD) (1) Community Acquired Pneumonia and Acute Influenza A Viral Syndrome (2) Diarrhea, Possible likely secondary to #1, acute influenza A viral syndrome with concurrent pneumonia (3) Acute kidney injury, Secondary to acute presentation with pneumonia and gastroenteritis with GI losses as well as poor oral intake recently (4) Acute on Chronic Normocytic, Fe Deficiency Anemia (5) CAD s/p CABG x 4, MONTERO to LAD, EPIFANIO to the Distal RCA, Right Radial Artery to the OM branch of CX, and Reverse SVG from the aorta to the Distal RCA 08/17/01 (6) Hypertension (7) Hyperlipidemia (8) Diabetes mellitus type II (9) Parkinson's disease (10) Hypothyroidism (11) Anxiety and depression (12) PAF (13) GERD - Secondary Discharge Diagnosis Chronic Problems (Last Reviewed 11/23/18 @ 21:58 by Vick Gay MD) Atherosclerotic heart disease of [place] coronary artery without angina pectoris (Chronic) CABG x4- MONTERO to LAD, EPIFANIO to the Distal RCA, Right Radial Artery to the OM branch of CX, and Reverse SVG from the aorta to the Distal RCA 08/17/01 Aortocoronary bypass status (Chronic ~08/17/01) CABG x4- MONTERO to LAD, EPIFANIO to the Distal RCA, Right Radial Artery to the OM branch of CX, and Reverse SVG from the aorta to the Distal RCA 08/17/01 Hyperlipidemia (Chronic) Hypertension (Chronic) Long-term use of high-risk medication (Chronic) Implantable cardioverter-defibrillator (ICD) in situ (Chronic ~10/23/11) Type 2 diabetes mellitus (Chronic) Atrial flutter (Chronic) Atrial fibrillation (Chronic) Hospital Course and Treatment Operations: None Procedures: Blood transfusion, EKG Summary of Care Provided: The patient is a 73 y/o M w/ PMHx: CAD s/p CABG x 4, HTN, HLD, Diabetes mellitus type II, PAF, Parkinson's disease who presented to the [facility] ED on 11/23/18 with history of progressively worsening weakness, fatigue, recent fall while using his walking device but stated that he was unable to get up with recent concurrent 2-week history of loose stools with no associated market nausea or emesis but some abdominal cramping, poor appetite as well as a dry cough. CXR in the ED w/ bibasilar infiltrates worse on the left side with blunting of left costophrenic angle with follow-up CT chest with significant bilateral lower lobe pulmonary infiltrates and subsegmental atelectasis secondary to pneumonia, right upper lobe pulmonary infiltrate, minimal pulmonary infiltrates right middle lobe as well as left upper lobe, indeterminate 5 mm pulmonary nodule within the left upper lobe, multilevel spondylosis of the thoracic and lumbar spine, right adrenal adenoma, left shoulder surgical clips present as well as a 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 Admitted to [place], maintain on oxygen with wean as tolerated to room air, continue ATC duonebs, PRN albuterol, maintained on IV Rocephin and Azithromycin, HOB, IS parameters w/ requested but not obtained sputum cultures, respiratory viral panel w/ + influenza with initiation on tamiflu, noted negative urine antigens. Bld cx x 2 obtained in the ED w/ NGTD. During admission patient w/ Acute kidney injury, secondary to acute presentation with pneumonia and gastroenteritis with GI losses as well as poor oral intake recently w/ admission BUN/Cr 50/1.43, prior baseline creatinine noted to be 0.7-1. Hydrated, repeat 11/26/18 BUN/Cr 15/0.74, resolved. Additionally, patient w/ Acute on Chronic Normocytic, Fe Deficiency Anemia, admission Hgb 8, repeat 7.2, given underlying CAD s/p CABG and PAF history as well as hypoxia w/ acute presentation CAP as noted, administered 2 u PRBC, repeat HH 8.8, 11/27/18 Hgb 9.0. Continued home iron supplementation. PT, OT, CM consulted, family changed senior living facility choice yesterday afternoon therefore transitioned to [facility] once precertification obtained. Patient discharged to senior living facility in improved, stable clinical condition with recommended follow-up with primary care physician within 1-2 days of senior living facility discharge. Patient discharged on continued regimen of antibiotic therapy in addition to aerosols as well as antiviral therapy at senior living facility. Patient Problems: Active and Suspected Problems (Last Reviewed 11/23/18 @ 21:58 by Vick Gay MD) Community acquired pneumonia (Acute) Influenza A (Acute) IDALIA (acute kidney injury) (Acute) - Physical Exam Vital Signs Temp Pulse Resp BP Pulse Ox 96.8 F L 70 18 129/63 H 94 11/26/18 14:00 11/26/18 14:00 11/26/18 14:00 11/26/18 14:00 11/26/18 14:00 Oxygen Flow Rate (L/min) 27 Oxygen Delivery Method Nasal Cannula Weight: 167 lb 12.348 oz Body Mass Index (BMI) 27.9 Intake and Output for Last 24 Hours 11/24/18 11/25/18 11/26/18 23:59 23:59 23:59 Intake Total 2519 / 2519 1240 / 1240 1103 / 1103 Output Total 1999 / 1999 500 / 500 500 / 500 Balance 519 / 519 740 / 740 603 / 603 Microbiology Past 72 Hours 11/23/18 20:35 Blood Culture - Preliminary Blood Culture (Wb) - Anticubital Right No growth in 48 hours. 11/23/18 20:20 Blood Culture - Preliminary Blood Culture (Wb) - Left Hand No growth in 48 hours. 11/25/18 19:45 Enteric Bacteriology - Final Stool 11/25/18 19:45 Stool Lactoferrin - Final Stool 11/24/18 15:25 Respiratory Panel (PCR) - Final Mucosa - Nasopharyngeal Influenza A (Subtype H3) 11/23/18 16:00 Streptococcus pneumoniae Antigen (M - Final Urine, Clean Catch 11/23/18 16:00 Legionella Antigen - Final Urine, Clean Catch Laboratory Tests Past 24 Hrs 11/26/18 11/26/18 05:36 05:36 WBC 7.6 RBC 3.20 L Hgb 9.0 L Hct 28.5 L MCV 89.1 MCH 28.1 MCHC 31.6 L RDW 15.7 H RDW Differential 49.8 H Plt Count 349 MPV 9.1 Immature Gran % (Auto) 1.400 H Neut % (Auto) 77.1 H Lymph % (Auto) 5.9 L [place] % (Auto) 14.7 H Eos % (Auto) 0.8 Baso % (Auto) 0.1 Absolute Neuts (auto) 5.9 Absolute Lymphs (auto) 0.45 L Total Counted Not Reportable Sodium 138 Potassium 3.6 Chloride 106 Carbon Dioxide 24.0 Anion Gap 8 BUN 15 Creatinine 0.74 Estim Creat Clear Calc 56.38 Est GFR (MDRD) Af Amer 133 Est GFR (MDRD) Non-Af 110 BUN/Creatinine Ratio 20.3 H Glucose 101 Calcium 8.4 L POC Glucose 11/26/18 11/26/18 11/26/18 16:55 16:21 11:42 POC Glucose 82 55 L 93 11/26/18 11/25/18 07:37 21:54 POC Glucose 104 185 H Home Medications: Medications to take at Discharge Atorvastatin Calcium [Lipitor] 20 mg PO QHS 09/27/14 Diltiazem HCl [Diltiazem 24Hr ER] 180 mg PO DAILY 09/27/14 Insulin Aspart [Novolog Flexpen] 5 units SC BREAKFAST 09/27/14 Insulin Aspart [Novolog Flexpen] 6 units SC LUNCH 09/27/14 Insulin Aspart [Novolog Flexpen] 7 units SC DINNER 09/27/14 Insulin Glargine [Lantus SoloStar Pen] 26 units SC QHS 09/27/14 Lisinopril [Zestril] 5 mg PO DAILY 09/27/14 Metformin HCl [Glucophage] 500 mg PO TIDCM 09/27/14 Omeprazole [Prilosec] 20 mg PO BID 09/27/14 buPROPion tablets [Wellbutrin tablets] 150 mg PO BID 09/27/14 hydrOXYzine tablet [Atarax tablet] 10 mg PO TID PRN PRN 09/27/14 aspirin 325 mg tablet 325 mg PO QDAY 01/12/18 carbidopa 25 mg-levodopa 250 mg tablet 1.5 tab PO Q6H tab 01/12/18 cyanocobalamin (vit B-12) 1,000 mcg tablet 1,000 mcg PO QDAY 01/12/18 entacapone 200 mg tablet 200 mg PO Q6H tab 01/12/18 gabapentin 600 mg tablet 600 mg PO BID 01/12/18 calcium citrate-vitamin D3 315 mg-250 unit tablet 1 tab PO DAILY 10/22/18 coconut oil 1,000 mg capsule 1,000 mg PO TID cap 10/22/18 ferrous sulfate 325 mg (65 mg iron) tablet 325 mg PO TID tab 10/22/18 isosorbide mononitrate ER 60 mg tablet,extended release 24 hr 60 mg PO DAILY tab 10/22/18 levothyroxine 137 mcg tablet 137 mcg PO DAILY 10/22/18 sertraline 100 mg tablet 150 mg PO DAILY tab 10/22/18 Acetaminophen [Tylenol Tablet] 650 mg PO Q6H PRN PRN tablet 11/25/18 Albuterol Aerosols [Ventolin Aerosols] 2.5 mg INHALATION Q4HWA.RT vial.neb. 11/25/18 Azithromycin [Zithromax Tri-Hardik] 500 mg PO DAILY #1 tablet 11/25/18 Cefdinir [Omnicef [equiv]] 300 mg PO Q12H 4 Days capsule 11/25/18 Guaifenesin [Mucinex] 1,200 mg PO BID tablet 11/25/18 Ipratropium/Albuterol Sulfate [Duoneb] 3 ml INHALATION Q6HWA.RT ampul.neb 11/25/18 Menthol/Lanolin/Calamine/Znox [Calmoseptine Ointment] 1 applic TOPICAL TID tube 11/25/18 Oseltamivir Phosphate [Tamiflu] 30 mg PO BID capsule 11/25/18 Following Prescrptions Were Given to Patient: Azithromycin [Zithromax Tri-Hardik] 500 mg PO DAILY #1 tablet Cefdinir [Omnicef [equiv]] 300 mg PO Q12H 4 Days capsule Primary Care Physician: Rsoelyn Goldberg MD [Primary Care Provider] - Please follow up with your Primary Care Physician in: Follow-up within 1-2 days SNF discharge plan. Disposition: Group Home facility Minutes spent on discharge:: 35 Patient Condition:: Fair Medical Necessity - Tobacco Use Smoking Status: Former smoker Meaningful Use Info Meaningful Use Diagnoses (Choose all that apply): None applicable Code Visit Inpatient E&M: 92553 Disch Hosp
--- NOTE | 2018-11-26 17:30 | DS.PCM_ITS ---
Discharge Date and Diagnosis - Problem List Patient Problems: Active and Suspected Problems (Last Reviewed 11/23/18 @ 21:58 by Vick Gay MD) Community acquired pneumonia (Acute) Influenza A (Acute) IDALIA (acute kidney injury) (Acute) Date of Admission: 11/23/18 Date of Discharge: 11/26/18 - Primary Discharge Diagnosis Active and Suspected Problems (Last Reviewed 11/23/18 @ 21:58 by Vick Gay MD) (1) Community Acquired Pneumonia and Acute Influenza A Viral Syndrome (2) Diarrhea, Possible likely secondary to #1, acute influenza A viral syndrome with concurrent pneumonia (3) Acute kidney injury, Secondary to acute presentation with pneumonia and gastroenteritis with GI losses as well as poor oral intake recently (4) Acute on Chronic Normocytic, Fe Deficiency Anemia (5) CAD s/p CABG x 4, MONTERO to LAD, EPIFANIO to the Distal RCA, Right Radial Artery to the OM branch of CX, and Reverse SVG from the aorta to the Distal RCA 08/17/01 (6) Hypertension (7) Hyperlipidemia (8) Diabetes mellitus type II (9) Parkinson's disease (10) Hypothyroidism (11) Anxiety and depression (12) PAF (13) GERD - Secondary Discharge Diagnosis Chronic Problems (Last Reviewed 11/23/18 @ 21:58 by Vick Gay MD) Atherosclerotic heart disease of [place] coronary artery without angina pectoris (Chronic) CABG x4- MONTERO to LAD, EPIFANIO to the Distal RCA, Right Radial Artery to the OM branch of CX, and Reverse SVG from the aorta to the Distal RCA 08/17/01 Aortocoronary bypass status (Chronic ~08/17/01) CABG x4- MONTERO to LAD, EPIFANIO to the Distal RCA, Right Radial Artery to the OM branch of CX, and Reverse SVG from the aorta to the Distal RCA 08/17/01 Hyperlipidemia (Chronic) Hypertension (Chronic) Long-term use of high-risk medication (Chronic) Implantable cardioverter-defibrillator (ICD) in situ (Chronic ~10/23/11) Type 2 diabetes mellitus (Chronic) Atrial flutter (Chronic) Atrial fibrillation (Chronic) Hospital Course and Treatment Operations: None Procedures: Blood transfusion, EKG Summary of Care Provided: The patient is a 73 y/o M w/ PMHx: CAD s/p CABG x 4, HTN, HLD, Diabetes mellitus type II, PAF, Parkinson's disease who presented to the [facility] ED on 11/23/18 with history of progressively worsening weakness, fatigue, recent fall while using his walking device but stated that he was unable to get up with recent concurrent 2-week history of loose stools with no associated market nausea or emesis but some abdominal cramping, poor appetite as well as a dry cough. CXR in the ED w/ bibasilar infiltrates worse on the left side with blunting of left costophrenic angle with follow-up CT chest with significant bilateral lower lobe pulmonary infiltrates and subsegmental atelectasis secondary to pneumonia, right upper lobe pulmonary infiltrate, minimal pulmonary infiltrates right middle lobe as well as left upper lobe, indeterminate 5 mm pulmonary nodule within the left upper lobe, multilevel spondylosis of the thoracic and lumbar spine, right adrenal adenoma, left shoulder surgical clips present as well as a 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 Admitted to [place], maintain on oxygen with wean as tolerated to room air, continue ATC duonebs, PRN albuterol, maintained on IV Rocephin and Azithromycin, HOB, IS parameters w/ requested but not obtained sputum cultures, respiratory viral panel w/ + influenza with initiation on tamiflu, noted negative urine antigens. Bld cx x 2 obtained in the ED w/ NGTD. During admission patient w/ Acute kidney injury, secondary to acute presentation with pneumonia and gastroenteritis with GI losses as well as poor oral intake recently w/ admission BUN/Cr 50/1.43, prior baseline creatinine noted to be 0.7- 1. Hydrated, repeat 11/26/18 BUN/Cr 15/0.74, resolved. Additionally, patient w/ Acute on Chronic Normocytic, Fe Deficiency Anemia, admission Hgb 8, repeat 7.2, given underlying CAD s/p CABG and PAF history as well as hypoxia w/ acute presentation CAP as noted, administered 2 u PRBC, repeat HH 8.8, 11/27/18 Hgb 9.0. Continued home iron supplementation. PT, OT, CM consulted, family changed care home facility choice yesterday afternoon therefore transitioned to [facility] once precertification obtained. Patient discharged to care home facility in improved, stable clinical condition with recommended follow-up with primary care physician within 1-2 days of care home facility discharge. Patient discharged on continued regimen of antibiotic therapy in addition to aerosols as well as antiviral therapy at care home facility. Patient Problems: Active and Suspected Problems (Last Reviewed 11/23/18 @ 21:58 by Vick Gay MD) Community acquired pneumonia (Acute) Influenza A (Acute) IDALIA (acute kidney injury) (Acute) - Physical Exam Vital Signs Temp Pulse Resp BP Pulse Ox 96.8 F L 70 18 129/63 H 94 11/26/18 14:00 11/26/18 14:00 11/26/18 14:00 11/26/18 14:00 11/26/18 14:00 Oxygen Flow Rate (L/min) 27 Oxygen Delivery Method Nasal Cannula Weight: 167 lb 12.348 oz Body Mass Index (BMI) 27.9 Intake and Output for Last 24 Hours 11/24/18 11/25/18 11/26/18 23:59 23:59 23:59 Intake Total 2519 / 2519 1240 / 1240 1103 / 1103 Output Total 1999 / 1999 500 / 500 500 / 500 Balance 519 / 519 740 / 740 603 / 603 Microbiology Past 72 Hours 11/23/18 20:35 Blood Culture - Preliminary Blood Culture (Wb) - Anticubital Right No growth in 48 hours. 11/23/18 20:20 Blood Culture - Preliminary Blood Culture (Wb) - Left Hand No growth in 48 hours. 11/25/18 19:45 Enteric Bacteriology - Final Stool 11/25/18 19:45 Stool Lactoferrin - Final Stool 11/24/18 15:25 Respiratory Panel (PCR) - Final Mucosa - Nasopharyngeal Influenza A (Subtype H3) 11/23/18 16:00 Streptococcus pneumoniae Antigen (M - Final Urine, Clean Catch 11/23/18 16:00 Legionella Antigen - Final Urine, Clean Catch Laboratory Tests Past 24 Hrs 11/26/18 11/26/18 05:36 05:36 WBC 7.6 RBC 3.20 L Hgb 9.0 L Hct 28.5 L MCV 89.1 MCH 28.1 MCHC 31.6 L RDW 15.7 H RDW Differential 49.8 H Plt Count 349 MPV 9.1 Immature Gran % (Auto) 1.400 H Neut % (Auto) 77.1 H Lymph % (Auto) 5.9 L [place] % (Auto) 14.7 H Eos % (Auto) 0.8 Baso % (Auto) 0.1 Absolute Neuts (auto) 5.9 Absolute Lymphs (auto) 0.45 L Total Counted Not Reportable Sodium 138 Potassium 3.6 Chloride 106 Carbon Dioxide 24.0 Anion Gap 8 BUN 15 Creatinine 0.74 Estim Creat Clear Calc 56.38 Est GFR (MDRD) Af Amer 133 Est GFR (MDRD) Non-Af 110 BUN/Creatinine Ratio 20.3 H Glucose 101 Calcium 8.4 L POC Glucose 11/26/18 11/26/18 11/26/18 16:55 16:21 11:42 POC Glucose 82 55 L 93 11/26/18 11/25/18 07:37 21:54 POC Glucose 104 185 H Home Medications: Medications to take at Discharge Atorvastatin Calcium [Lipitor] 20 mg PO QHS 09/27/14 Diltiazem HCl [Diltiazem 24Hr ER] 180 mg PO DAILY 09/27/14 Insulin Aspart [Novolog Flexpen] 5 units SC BREAKFAST 09/27/14 Insulin Aspart [Novolog Flexpen] 6 units SC LUNCH 09/27/14 Insulin Aspart [Novolog Flexpen] 7 units SC DINNER 09/27/14 Insulin Glargine [Lantus SoloStar Pen] 26 units SC QHS 09/27/14 Lisinopril [Zestril] 5 mg PO DAILY 09/27/14 Metformin HCl [Glucophage] 500 mg PO TIDCM 09/27/14 Omeprazole [Prilosec] 20 mg PO BID 09/27/14 buPROPion tablets [Wellbutrin tablets] 150 mg PO BID 09/27/14 hydrOXYzine tablet [Atarax tablet] 10 mg PO TID PRN PRN 09/27/14 aspirin 325 mg tablet 325 mg PO QDAY 01/12/18 carbidopa 25 mg-levodopa 250 mg tablet 1.5 tab PO Q6H tab 01/12/18 cyanocobalamin (vit B-12) 1,000 mcg tablet 1,000 mcg PO QDAY 01/12/18 entacapone 200 mg tablet 200 mg PO Q6H tab 01/12/18 gabapentin 600 mg tablet 600 mg PO BID 01/12/18 calcium citrate-vitamin D3 315 mg-250 unit tablet 1 tab PO DAILY 10/22/18 coconut oil 1,000 mg capsule 1,000 mg PO TID cap 10/22/18 ferrous sulfate 325 mg (65 mg iron) tablet 325 mg PO TID tab 10/22/18 isosorbide mononitrate ER 60 mg tablet,extended release 24 hr 60 mg PO DAILY tab 10/22/18 levothyroxine 137 mcg tablet 137 mcg PO DAILY 10/22/18 sertraline 100 mg tablet 150 mg PO DAILY tab 10/22/18 Acetaminophen [Tylenol Tablet] 650 mg PO Q6H PRN PRN tablet 11/25/18 Albuterol Aerosols [Ventolin Aerosols] 2.5 mg INHALATION Q4HWA.RT vial.neb. 11/25/18 Azithromycin [Zithromax Tri-Hardik] 500 mg PO DAILY #1 tablet 11/25/18 Cefdinir [Omnicef [equiv]] 300 mg PO Q12H 4 Days capsule 11/25/18 Guaifenesin [Mucinex] 1,200 mg PO BID tablet 11/25/18 Ipratropium/Albuterol Sulfate [Duoneb] 3 ml INHALATION Q6HWA.RT ampul.neb 11/25/18 Menthol/Lanolin/Calamine/Znox [Calmoseptine Ointment] 1 applic TOPICAL TID tube 11/25/18 Oseltamivir Phosphate [Tamiflu] 30 mg PO BID capsule 11/25/18 Following Prescrptions Were Given to Patient: Azithromycin [Zithromax Tri-Hardik] 500 mg PO DAILY #1 tablet Cefdinir [Omnicef [equiv]] 300 mg PO Q12H 4 Days capsule Primary Care Physician: Roselyn Goldberg MD [Primary Care Provider] - Please follow up with your Primary Care Physician in: Follow-up within 1-2 days SNF discharge plan. Disposition: [facility] facility Minutes spent on discharge:: 35 Patient Condition:: Fair Medical Necessity - Tobacco Use Smoking Status: Former smoker Meaningful Use Info Meaningful Use Diagnoses (Choose all that apply): None applicable Code Visit Inpatient E&M: 48768 Disch Hosp
[2018-11-26 17:58] VITALS: BP 129/63; PULSE 70; RESP 18; TEMP 36; O2SAT 94
[2018-12-01 09:37] LABS: Epinephrine, Pl 18 pg/mL (0-62); Norepinephrine, Pl 89 pg/mL (0-874)
[2018-12-01 12:13] LABS: Dopamine, Pl 2415 pg/mL (0-48)
== END 2018-11-26 17:58 | disposition skilled nursing facility (03) | DRG 194 ==
LOC: ED 20:36 → MS3 20:49
PROVIDERS: Admitting Provider Hospitalist; Emergency Provider Emergency Medicine; Family Provider Internal Medicine; PCP Internal Medicine; Referring Provider Hospitalist; Visit Provider Family Medicine
DX: J10.00 Influenza due to other identified influenza virus with unspecified type of pneumonia (principal); N17.9 Acute kidney failure, unspecified; E78.5 Hyperlipidemia, unspecified; G20 Parkinson's disease; D53.9 Nutritional anemia, unspecified; I25.10 Atherosclerotic heart disease of native coronary artery without angina pectoris; F41.9 Anxiety disorder, unspecified; F32.9 Major depressive disorder, single episode, unspecified; E03.9 Hypothyroidism, unspecified; I48.0 Paroxysmal atrial fibrillation; K21.9 Gastro-esophageal reflux disease without esophagitis; E11.9 Type 2 diabetes mellitus without complications; I10 Essential (primary) hypertension; Z95.810 Presence of automatic (implantable) cardiac defibrillator; Z95.1 Presence of aortocoronary bypass graft; Z79.4 Long term (current) use of insulin; Z87.891 Personal history of nicotine dependence
CPT/HCPCS: 36415; 71045; 71250; 80048; 81001; 82384; 82533; 82962; 83630; 84484; 85014; 85018; 85025; 86850; 86900; 86920; 86922; 87040; 87449; 87506; 87633; 92526; 92610; 93005; 94640; 97162; 97166; 97530; 99285; J7030; J7040; J7050; P9016; A4216; J1940

== ENCOUNTER → 2019-10-14 13:38 | Outpatient (CLI) | payer MEDICARE, SELFPAY ==
[2019-02-04 11:36] VITALS: BMI 29.5
[2019-10-14 15:38] LABS: Absolute Lymphocyte Count 0.73 X10^3/uL (0.83-4.51); Absolute Neutrophil Count 4.9 X10^3/uL (2.0-7.7); Basophil# 0.03 X10^3/uL; Basophil% 0.5 % (0-1); Eosinophil# 0.21 X10^3/uL; Eosinophils% 3.2 % (0-5); Hematocrit 29.4 % (40-54); Lymphocyte # 0.73 X10^3/ul (4.0); Lymphocyte % 11.3 % (19-41); Mean Corp Hgb Conc 30.6 g/dL (32-36); Mean Corpuscular Hgb 27.7 pg (27.0-32.0); Mean Corpuscular Volume 90.5 fL (80-94); Mean Platelet Vol. 8.4 fl (6.2-12.0); Monocyte# 0.52 X10^3/uL; NRBC Flagged by Analyzer 0 % (0-5); Neutrophil # 4.94 X10^3/uL (2.7-7.7); Neutrophil % 76.2 % (47-70); Platelet Count 388 K/mm3 (150-450); RBC Distribution Width CV 15.5 % (11.6-14.6); RBC Distribution Width SD 51.1 fl (35.1-43.9); Red Blood Count 3.25 M/mm3 (4.6-6.2); White Blood Count 6.5 K/mm3 (4.4-11.0)
== END ==
PROVIDERS: PCP Internal Medicine; Referring Provider Nurse Practitioner Primary Care; Visit Provider Nurse Practitioner Primary Care
DX: D50.9 Iron deficiency anemia, unspecified (principal)
CPT/HCPCS: 36415; 85025

== ENCOUNTER 2020-02-06 16:18 | Inpatient (IN) | payer MEDICARE, OTHER, SELFPAY ==
[2019-12-08 10:28] VITALS: BMI 29.5
[2020-02-06] VITALS (10 sets, daily range): BP systolic 82–124; BP diastolic 42–76; PULSE 70–79; RESP 11–20; TEMP 36.4–37.4; O2SAT 95–100; BMI 28.8
--- NOTE | 2020-02-06 16:43 | CT_ITS ---
STUDY: CT BRAIN WITHOUT CONTRAST REASON FOR EXAM: Male, 74 years old. FOUND LAYING IN DRIVEWAY, UNRESPONSIVE, SYNCOPE EPISODE, TEMP WAS 102, HX-DB, HTN, MA, CABG, PARKINSONS DZ, TESTICULAR CA-UNILATERAL ORCHIECTOMY RADIATION DOSAGE (If Supplied By Facility): CTDIvol = ( 44.99 ) mGy, DLP = ( 812.98 ) mGycm TECHNIQUE: Transaxial CT imaging of the brain was performed without administration of intravenous contrast material. Individualized dose optimization techniques were used for this CT. COMPARISON: 08/15/2015. FINDINGS: Normal soft tissue structures. Normal calvarium. There is moderate cerebral atrophy with widening of the extra-axial spaces and ventricular dilatation. There are areas of decreased attenuation within the white matter tracts of the supratentorial brain, consistent with microvascular disease changes. Normal basal ganglia and thalami. Normal brainstem. Normal cerebellum. There is no intracranial hemorrhage. No acute territorial infarct. Chronic left parietal infarct. Small chronic right parietal infarct. Atherosclerotic calcification of the cavernous carotid arteries. Normal visualized paranasal sinuses. CT/Brain/Head without Contrast IMPRESSION: 1. No acute findings. 2. Chronic parietal infarcts. 3. Microvascular ischemia. Atrophy. Electronically Signed: Kamille Carrasco MD at 17:40 EDT Tel , Service support ,
--- NOTE | 2020-02-06 16:43 | EKG12_ITS ---
Test Reason : SYNCOPE Blood Pressure : / mmHG Vent. Rate : 075 BPM Atrial Rate : 075 BPM P-R Int : 336 ms QRS Dur : 126 ms QT Int : 416 ms P-R-T Axes : 075 -45 009 degrees QTc Int : 464 ms Sinus rhythm with 1st degree A-V block Right bundle branch block Left anterior fascicular block Bifascicular block Abnormal ECG Confirmed by SOO CEVALLOS, KENDRA ([id number]), primer expeditor and drier DANIEL CELESTE ([id number]) on 02/08/2020 10:15:50 AM Referred By: Gayle Randall Confirmed By:KENDRA VANN MD
[2020-02-06 16:56] LABS: Absolute Lymphocyte Count 0.49 X10^3/uL (0.83-4.51); Absolute Neutrophil Count 5.5 X10^3/uL (2.0-7.7); Basophil# 0.03 X10^3/uL; Basophil% 0.4 % (0-1); Eosinophils% 1.5 % (0-5); Hematocrit 26.6 % (40-54); Hemoglobin 8.1 g/dL (13.0-16.5); Lymphocyte # 0.49 X10^3/ul (4.0); Lymphocyte % 7.3 % (19-41); Mean Corp Hgb Conc 30.5 g/dL (32-36); Mean Corpuscular Volume 88.7 fL (80-94); Mean Platelet Vol. 8.6 fl (6.2-12.0); Monocyte# 0.54 X10^3/uL; Monocyte% 8.1 % (0-10); NRBC Flagged by Analyzer 0 % (0-5); Neutrophil # 5.48 X10^3/uL (2.7-7.7); POSITIVE DIFFERENTIAL YES; Platelet Count 362 K/mm3 (150-450); RBC Distribution Width CV 18.3 % (11.6-14.6); RBC Distribution Width SD 59.8 fl (35.1-43.9); White Blood Count 6.7 K/mm3 (4.4-11.0)
[2020-02-06] MEDS: 0.9% Normal Saline 1,000 ML 150 ML IV (16:56)
[2020-02-06 17:03] LABS: Differential Indicated SCAN CRITERIA MET
[2020-02-06 17:12] LABS: Mucous, Urine 0 SEEN /hpf (<or=2+); Red Blood Cells-Urine 0 SEEN /hpf (0-5)
[2020-02-06 17:14] LABS: Color, Urine Yellow (Yellow); Glucose, Dipstick Normal (Normal); Ketone-Dipstick 15 mg/dl (Negative); Leukocyte Esterase-Dipstick 500 /ul (Negative); Nitrite-Dipstick Negative (Negative); Occult Blood-Urine 25 /ul (Negative); Protein-Dipstick 30 mg/dl (Negative); Urine Clarity Cloudy (Clear); Urine Urobilinogen Normal (Normal)
[2020-02-06 17:16] LABS: CPK Total, Creatine Kinase 89 U/L (39-308)
[2020-02-06 17:18] LABS: Urine Bilirubin Dipstick 1 mg/dL (Negative)
[2020-02-06 17:20] LABS: White Blood Cells 50-100 SEEN /hpf (0-5)
[2020-02-06 17:21] LABS: Bacteria 3+ /hpf (None Seen)
[2020-02-06 17:23] LABS: Squamous Epithelial Cells - UA 0-5 SEEN /hpf (0-5)
[2020-02-06 17:24] LABS: Hyaline Cast 0-5 SEEN /lpf (0-5)
--- NOTE | 2020-02-06 17:26 | RAD_ITS ---
STUDY: X-RAY CHEST REASON FOR EXAM: Male, 74 years old. FEVER, FOUND UNRESPONSIVE IN DRIVEWAY -- HX OF HTN, CABG-4 VESSEL, PARKINSONS TECHNIQUE: Single AP portable view of the chest. COMPARISON: 11/23/2018. FINDINGS: No pleural effusion. Minimal scarring in the right lung base. Lungs are otherwise clear. Normal size heart. Dual lead cardiac pacemaker on the right. Sternotomy wires are present. Upper sternotomy wires are fractured. Normal mediastinum and arun. Normal visualized pulmonary arteries. Mild atherosclerotic calcification of the aorta. Metallic anchors in the left humeral head. Soft tissues and bony structures are otherwise unremarkable. RAD/Chest 1 View (Portable) IMPRESSION: No acute findings. Electronically Signed: Kamille Carrasco MD at 18:06 EDT Tel , Service support ,
[2020-02-06 17:30] LABS: Differential Comment SCANNED
--- NOTE | 2020-02-06 17:40 | ED.VISSUMM ---
- ER Visit Summary Date of Service: 02/06/20 Chief Complaint: [Syncope] History of Present Illness: The patient is a 74 M [presents to the emergency department via EMS from home. Somebody driving by his driveway noted that he was passed out on the driveway and called EMS. On EMS arrival patient was ANO x3 apparently. Patient states that he had been out in the sun for up prolonged amount of time he started feeling woozy. Patient initially stated that he laid down next to the car but then told me that he fell and hit his head. Patient currently not on any blood thinners. He denies recent illness. He has a history of diabetes, hypertension, A. fib, high cholesterol. Patient has a defibrillator. He is denying any chest pain or shortness of breath. On EMS arrival patient was noted to be febrile to 102 however on arrival to ER his temp was 99 9.] Physical Examination: [HEENT-PERRLA, EOMI. Cranial nerves II through XII grossly intact. TMs clear. Mucous membranes moist. No adenopathy. Patient has superficial contusion just above the right eyebrow and also to the bridge of the nose. Cardiovascular-regular rate and rhythm with 3 out of 6 systolic ejection murmur Lungs-clear to auscultation, chest wall stable without crepitus or subcu emphysema Abdomen-normoactive bowel sounds, soft, nontender, no rebound or rigidity, no peritoneal signs. Back exam-patient has no tenderness over the thoracic or lumbar spine. Patient does have diffuse erythema to the skin noted to his back. Extremities-intact ?4, normal range of motion, normal pulses, atraumatic] Test Results: [EKG obtained arrival shows sinus rhythm with a ventricular rate of 75 bpm with a first-degree AV block and a right bundle branch block as well as left anterior fascicular block. When compared with prior EKG no new changes noted. CBC with it showing a 6.7, hemoglobin 8.1, hematocrit 26.6, placed 362. CPK was 89. Urinalysis was positive for 500 cassette esterase as well as 50-100 WBCs and +3 bacteria. Blood cultures ordered. Urine culture ordered. Chest x-ray showed nothing acute. CT scan of the brain without contrast showed chronic involutional changes and old left parietal CVA] Emergency Department Course and Treatment: [IV line established. Patient was given normal saline. Patient started on Rocephin 1 g IV.] Patient will need to have his defibrillator interrogated. Treatment Plan: [Admit] Disposition: [Admit] Impression: [Syncope UTI] This note was generated with [employer] dictation software. It may contain incorrect words, spelling, and punctuation that were not noted in review of the chart prior to signing ED Disposition - Plan for ED Patient: Referrals: Roselyn Goldberg MD [Primary Care Provider] -
[2020-02-06 17:47] LABS: Anion Gap 8 (5-15); BUN 24 mg/dL (7-18); BUN/Creat Ratio 21.6 RATIO (10-20); Chloride 109 mmol/L (98-107); Creatinine, Serum 1.11 mg/dL (0.70-1.30); EST Glomerular Filtration Rate 69 mL/min (>60); Est Glom Filt Rate - Afr Amer 83 mL/min (>60); Estimated Creatinine Clearance 48.15 ml/min; Glucose 163 mg/dL (74-106); Potassium 5.6 mmol/L (3.5-5.1); Sodium Level 139 mmol/L (136-145)
--- NOTE | 2020-02-06 18:22 | ED.RN ---
ATTEMPTED TO CALL PT'S DAUGHTERS, GENO AND SANAZ. THE NUMBER THAT IS IN THE SYSTEM FOR GENO, IS INCORRECT. SANAZ'S VOICEMAIL IS FULL.
--- NOTE | 2020-02-06 18:47 | HP.PCM_ITS ---
History of Present Illness Date of Admission: 02/06/20 The patient is a 74 year old M who was brought to the ED today after some people driving by saw him passed out in the driveway and called EMS. 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 He states the next thing he remembers is people looking over him. He states that prior to this he was feeling woozy and hadn't had much to eat or drink today. He admits to a 100 lbs wgt loss in the past year most of which has been intentional but states that more recently his appetite has been poor. He states that he can't really read anymore as many of the words are unrecognizable and he complains of bad ST memory loss. He has 2 children that live in the area. His temp when the squad arrived was 102 but upon arrival was 99. He was outside for an unknown amt of time and is unfortunately a poor historian overall. His orthostatic vitals are positive, his sCr is mildly elevated from baseline and his BUN is elevated, SG on his UA is 1.02 and is c/w a UTI, his K is 5.6 which is up from his baseline, and his is anemic but levels appear close to baseline. EKG shows a paced rhythm with no acute changes from previous. Past Medical History Past Medical History (Chronic Problems): Chronic Problems (Last Reviewed 02/06/20 @ 16:28 by Brenda Roberts) Nonrheumatic aortic (valve) stenosis (Chronic) Paroxysmal atrial fibrillation (Chronic) Essential hypertension (Chronic) Atherosclerotic heart disease of [place] coronary artery without angina pectoris (Chronic) CABG x4- MONTERO to LAD, EPIFANIO to the Distal RCA, Right Radial Artery to the OM branch of CX, and Reverse SVG from the aorta to the Distal RCA 08/17/01 Aortocoronary bypass status (Chronic ~08/17/01) CABG x4- MONTERO to LAD, EPIFANIO to the Distal RCA, Right Radial Artery to the OM branch of CX, and Reverse SVG from the aorta to the Distal RCA 08/17/01 Hyperlipidemia (Chronic) Long-term use of high-risk medication (Chronic) 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 Gayle Randall, DO) Implantable cardioverter-defibrillator (ICD) at end of battery life (Acute) Z45.02 Nonrheumatic aortic (valve) stenosis (Chronic) I35.0 Paroxysmal atrial fibrillation (Chronic) I48.0 Essential hypertension (Chronic) I10 Atherosclerotic heart disease of [place] coronary artery without angina pectoris (Chronic) I25.10 CABG x4- MONTERO to LAD, EPIFANIO to the Distal RCA, Right Radial Artery to the OM branch of CX, and Reverse SVG from the aorta to the Distal RCA 08/17/01 Hyperlipidemia (Chronic) E78.5 Carotid bruit (Acute) R09.89 Long-term use of high-risk medication (Chronic) Z79.899 Paroxysmal ventricular tachycardia (Acute) I47.2 Type 2 diabetes mellitus (Chronic) E11.9 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 Parkinsons disease G20 Atrial flutter (Inactive) I48.92 Hypertension (Inactive) I10 Allergies Iodine and Iodide Containing Produc Allergy (Verified 02/06/20 16:28) Shortness of breath simvastatin Adverse Reaction (Verified 02/06/20 16:28) Other Home Medications: Ambulatory Orders Medication Instructions Recorded Atorvastatin Calcium [Lipitor] 20 mg PO QHS 09/27/14 Diltiazem HCl [Diltiazem 24Hr ER 180 mg PO DAILY 09/27/14 (Cd)] Insulin Aspart [Novolog Flexpen] 5 units SC BREAKFAST 09/27/14 Insulin Aspart [Novolog Flexpen] 6 units SC LUNCH 09/27/14 Insulin Aspart [Novolog Flexpen] 7 units SC DINNER 09/27/14 Insulin Glargine [Lantus SoloStar 26 units SC QHS 09/27/14 Pen] Lisinopril [Zestril] 5 mg PO DAILY 09/27/14 buPROPion tablets [Wellbutrin 150 mg PO BID 09/27/14 tablets] hydrOXYzine tablet [Atarax tablet] 10 mg PO TID PRN PRN 09/27/14 metFORMIN HCl [Glucophage] 500 mg PO TIDCM 09/27/14 aspirin 325 mg tablet 325 mg PO QDAY 01/12/18 carbidopa 25 mg-levodopa 250 mg 1.5 tab PO Q6H tab 01/12/18 tablet cyanocobalamin (vitamin B-12) 1,000 mcg PO QDAY 01/12/18 1,000 mcg tablet gabapentin 600 mg tablet 600 mg PO BID 01/12/18 calcium citrate 315 mg-vitamin D3 1 tab PO DAILY 10/22/18 250 unit tablet ferrous sulfate 325 mg (65 mg 325 mg PO TID tab 10/22/18 iron) tablet isosorbide mononitrate 60 mg 60 mg PO DAILY tab 10/22/18 tablet,extended release 24 hr levothyroxine 137 mcg tablet 137 mcg PO DAILY 10/22/18 sertraline 100 mg tablet 150 mg PO DAILY tab 10/22/18 Acetaminophen [Tylenol Tablet] 650 mg PO Q6H PRN PRN tab 11/25/18 Albuterol Aerosols [Ventolin 2.5 mg INHALATION Q4HWA.RT 11/25/18 Aerosols] vial.neb. Ipratropium/Albuterol Sulfate 3 ml INHALATION Q6HWA.RT ampul.neb 11/25/18 [Duoneb] Surgical History: Surgical History (Last Reviewed 02/06/20 @ 18:[address] Gayle Randall DO) Aortocoronary bypass status (Chronic) Onset Date: ~08/17/01 Z95.1 CABG x4- MONTERO to LAD, EPIFANIO to the Distal RCA, Right Radial Artery to the OM branch of CX, and Reverse SVG from the aorta to the Distal RCA 08/17/01 Implantable cardioverter-defibrillator (ICD) in situ (Chronic) Onset Date: ~10/23/11 Z95.810 History of appendectomy Z90.49 History of cardiac radiofrequency ablation Onset Date: ~06/2003 Z98.890 History of orchiectomy, unilateral Z90.79 History of tonsillectomy Z90.89 Lives: Alone - has 2 children in the area Smoking Status: Former smoker Alcohol: None Drugs: None - *Family History Maternal Family History: Family History (Last Reviewed 02/06/20 @ 18:[address] Gayle Randall DO) Father CAD (coronary artery disease) Myocardial infarction Mother CAD (coronary artery disease) Sister Diabetes Sister CAD (coronary artery disease) Hx of CABG History Items: No pertinent history Review of Systems Constitutional: Reports: Weight Change - 100 lb weight loss in last 1 yr- intentional initially but now appetite is not quite there, Fatigue. Denies: Anorexia, Chills, Fever, Night Sweats, Malaise, Weakness Eyes: Reports: Cataracts - s/p surgery for correction. Denies: Blurred vision, Conjunctivae Inflammation, Double vision, Drainage, Eyelid Inflammation, Pain, Redness, Vision Change HEENT: Reports: Difficulty Hearing, Hard of Hearing. Denies: Difficulty Swallowing, Dysphasia, Ear Pain, Eye Pain, Head Aches, Hearing Changes, Nasal bleeding, Nasal Congestion, Post Nasal Drip, Sinus Congestion, Sinus Drainage, Sore Throat, Visual Changes Cardiovascular: Reports: Edema - chronic wears stockings. Denies: Chest Pain, Claudication, Chest Pressure, Chest Tightness, Heaviness, Light Headedness, Orthopnea, Palpitations, Paroxysmal Noc. Dyspnea, Syncope Respiratory: Denies: Cough, Hemoptysis, Pleuritic Pain, Shortness of Breath, Shortness of breath at rest, Shortness of breath upon exertion, Sputum production, Wheezing Gastrointestinal: Denies: Abdominal Pain, Constipation, Diarrhea, Dyspepsia, Hematemesis, Hematochezia, Nausea, Melena, Vomiting Genitourinary: Denies: Dysuria, Frequency, Hematuria, Hesitancy, Incontinence, Nocturia, Retention, Urgency Musculoskeletal: Reports: Arm Pain - R where scrape is located, Shoulder Pain - R. Denies: Back Pain, Hand Pain, Joint stiffness, Joint swelling, Joint Tenderness, Leg Pain, Muscle pain, Neck Pain Skin: Denies: Dryness, Jaundice, Lesions, Pruritis, Rash, Skin Changes, Wounds Neurological: Reports: Confusion, - - notices that he has a poor STM, states that he cant really read anymore as there are simple words he doesnt recognise. Denies: Balance problems, Blurred vision, Double vision, Change in Speech, Slurred speech, Difficulty swallowing, Focal weakness, Headaches, Incoordination, Numbness, Tingling, Tremor, Seizures Psychiatric: Denies: Anxiety, Depression, Homicidal Ideations, Suicidal Ideat ions Endocrine: Reports: Change in Body Habitus - wgt loss. Denies: Heat/ Cold Intolerance, Polydipsia, Polyuria, Hx of Irradiation, Hx of Thyroiditis Hematologic/ Lymphatic: Reports: Easy Bruising. Denies: Adenopathy, Anemia, Easy Bleeding, Petechiae, Purpura, Hx of blood clot VTE Information - Inpt Only VTE Present on Admission: No VTE Mechan Device Prophylaxis: None VTE Pharm Prophylaxis ordered?: Yes - Physical Exam Vitals/I&O's: Vital Signs Temp Pulse Resp BP Pulse Ox 98.8 F 70 18 102/52 L 98 02/06/20 18:07 02/06/20 18:07 02/06/20 18:07 02/06/20 18:07 02/06/20 18:07 Oxygen Delivery Method Room Air Weight: 79.4 kg Body Mass Index (BMI) 30.0 Intake and Output for Last 24 Hours 02/04/20 02/05/20 02/06/20 23:59 23:59 23:59 Intake Total 192.5 / 192.5 Balance 192.5 / 192.5 General: Alert, Cooperative, No apparent distress, Well developed, Well nourished, Confused, - - WM,lying in bed, talks a bit tangentially at times and hard to follow, oriented to location, self, month but states that it is 2019 and has difficulty coming up with the ANDREW's name--> did get Trump when I said Scott HEENT: Atraumatic, PERRLA, EOMI, Normocephalic, EAC Clear, - - COWLITZ with aides in place Oral: No Gingival or Mucosal Lesions/ Ulcerations, Dry Mucosa, - - upper dentures, poor lower dentition Neck: Supple, No JVD, Negative Carotid Bruits, Negative Hepatojugular Reflux, No Nodes, No Nuchal Rigidity, Trachea Midline, Thyroid Normal Size and Texture, - - cardiac murmur that radiates to B carotids Lungs: Clear to auscultation, Normal air movement, No rhonchi, No wheeze, No rales Cardiovascular: Regular rate, Regular Rhythm, Normal S1, Normal S2, No Ectopic Activity, Murmur - SM loudest at the LSB, No rub noted, No Gallop, - - pacer in place with no superfical issues Abdomen: Bowel Sounds Present, Soft, Non Tender, Non-Distended, No Hepato- splenomegaly, No hernias noted Extremities: No clubbing, No cyanosis, Edema - trace but has zipable stocking on B LE that are pulled down Skin: - - L post thoracic area to trunk is red but not tender, well healed sternotomy incision Musculoskeletal: No Tenderness to Palpation of Joints or Extremities, No Muscle Wasting, Arthritic Changes Lymphatic: No Cervical, Supraclavicular, or Inguinal Adenopathy Neurological: Cranial nerves II-XII grossly intact, Deep Tendon Reflexes 2+/4 and Symmetrical, Neuro grossly intact, Motor Exam 5/5 strength throughout, Sensory exam intact to light touch and pain, - - resting tremor Psych/Mental Status: Normal Affect, - - very pleasant Laboratory Results 02/06/20 16:25: WBC 6.7, RBC 3.00 L, Hgb 8.1 L, Hct 26.6 L, MCV 88.7, MCH 27.0, MCHC 30.5 L, RDW Std Deviation 59.8 H, RDW Coeff of Mat 18.3 H, Plt Count 362, MPV 8.6, Immature Gran % (Auto) 0.700, Neut % (Auto) 82.0 H, Lymph % (Auto) 7.3 L, Prentiss % (Auto) 8.1, Eos % (Auto) 1.5, Baso % (Auto) 0.4, Absolute Neuts (auto) 5.5, Absolute Lymphs (auto) 0.49 L, Nucleated RBC % 0, Differential Comment SCANNED 02/06/20 16:25: Sodium 139, Potassium 5.6 H, Chloride 109 H, Carbon Dioxide 22.0, Anion Gap 8, BUN 24 H, Creatinine 1.11, Estim Creat Clear Calc 48.15, Est GFR (MDRD) Af Amer 83, Est GFR (MDRD) Non-Af 69, BUN/Creatinine Ratio 21.6 H, Glucose 163 H, Calcium 9.0, Troponin I < 0.015 02/06/20 16:25: Total Creatine Kinase 89 02/06/20 17:03: Urine Color Yellow, Urine Clarity Cloudy, Urine pH 5.0, Ur Specific Lynn 1.020, Urine Protein 30 H, Urine Glucose (UA) Normal, Urine Ketones 15 H, Urine Occult Blood 25 H, Urine Nitrite Negative, Urine Bilirubin 1 H, Urine Urobilinogen Normal, Ur Leukocyte Esterase 500 H, Urine RBC 0 SEEN, Urine WBC 50-100 SEEN, Ur Squamous Epith Cells 0-5 SEEN, Urine Bacteria 3+, Hyaline Casts 0-5 SEEN, Urine Mucus 0 SEEN Current Medications Sodium Chloride () 1,000 mls @ 150 mls/hr IV .Q6H40M [facility] Last Infusion: 02/06/20 18:13 Dose: 0 mls/hr Documented by: Assessment/Plan All Active Problems (Last Reviewed 02/06/20 @ 16:28 by Brenda Roberts) Implantable cardioverter-defibrillator (ICD) at end of battery life (Acute) Carotid bruit (Acute) Paroxysmal ventricular tachycardia (Acute) IDALIA (acute kidney injury) (Resolved) Community acquired pneumonia (Resolved) Influenza A (Resolved) Syncope -events unclear -CT neg for acute changes but does show atrophy/chronic parietal infarcts and microvascular ischemia -will assess ECHO--> pt has known AV stenosis -Pacer interrogation--> had a recent check on 01/18/2020 -repeat orthostatics in am -IVF at 50cc/hr after 500 cc bolus in ED -would like to do MRI but unable 2/2 pacer placement IDALIA-mild -gentle hydration -repeat lab when pt arrives to Tele -am lab -baseline sCr is about 0.7-0.8 and is 1.1 today -UA appears dry as well Mild Hyperkalemia -repeat BMP when arrives to floor to reassess -suspect related to dehydration and IDALIA -EKG stable Suspected UTI -UA c/w infection -Urine and blood cx pending -will start CTX 2 gms daily for now -pt asymptomatic Memory Issues -suspect pt may have some early vascular dementia -needs MMSE -Check B12/folate/Vit D/TSH -may benefit from Geriatrics f/u after d/c -unclear at this time if it is safe for pt to return back home Mechanical Fall -PT/OT -no severe acute injuries Parkinson's Disease -continue home Sinemet AV stenosis -Check severity with ECHO -last ECHO noted in Dr. Garcia's info shows segmental dysfunction with EF of 65%, Mild concentric LVH, mild L atrial enlargement and Mild with RVSP of 30 -could have contributed to syncope CAD s/p CABG/HTN/HPL -continue home meds -CABG x 4 in 2000 H/O PAF and PVT -pacer/ICD placed -medical mgt for AF (currently paced) -no OAC 2/2 fall risk with Parkinson's Chronic Normocytic Anemia -counts stable H/O Testicular cancer -stable DM-2 -continue home insulin regimen -cardiac/carb control diet DVT Prophylaxis -Lovenox daily Code Status -Full Inpatient E&M: 43278 Init Hosp L3
--- NOTE | 2020-02-06 19:39 | NURSING ---
This RN attempted to contact pt daughter (Christel) at this time. Voice mailbox is full.
[2020-02-06] MEDS: 0.9% Normal Saline 1,000 ML 50 ML IV (20:21)
[2020-02-06] MEDS: Carbidopa/Levodopa 25/250 Tablet PO (20:23)
[2020-02-06 20:38] LABS: Anion Gap 6 (5-15); BUN 25 mg/dL (7-18); BUN/Creat Ratio 23.1 RATIO (10-20); Calcium,Total 8.6 mg/dL (8.5-10.1); Chloride 111 mmol/L (98-107); Creatinine, Serum 1.08 mg/dL (0.70-1.30); EST Glomerular Filtration Rate 71 mL/min (>60); Est Glom Filt Rate - Afr Amer 86 mL/min (>60); Estimated Creatinine Clearance 49.49 ml/min; Glucose 152 mg/dL (74-106); Potassium 5.1 mmol/L (3.5-5.1); Sodium Level 140 mmol/L (136-145)
[2020-02-06] MEDS: Albuterol 2.5 MG/3 ML VIAL.NEB. INHALATION (21:18)
--- NOTE | 2020-02-06 22:55 | CT_ITS ---
We are attempting to reach an attending provider to discuss findings. An addendum with communication details will be sent when the communication is complete. STUDY: CTA HEAD AND NECK WITH CONTRAST REASON FOR EXAM: Male, 74 years old. NEURO DEFICIT/PARKINSON''S RADIATION DOSAGE (If Supplied By Facility): CTDIvol = ( 30.84 ) mGy, DLP = ( 1473.15 ) mGycm TECHNIQUE: CT angiography was performed with a multi-detector CT scanner. Data acquisition was obtained from the skull base through the vertex following intravenous administration of Isovue 370 100ml. MIP images were reconstructed from the axial data set. Post-processing of the angiographic images was performed, with multiplanar reformation and 3D reconstruction. Individualized dose optimization techniques were used for this CT. COMPARISON: No relevant priors. FINDINGS: Normal bilateral petrous carotid arteries. Normal right cavernous carotid artery with a normal supraclinoid bifurcation. Normal left cavernous carotid artery with a normal supraclinoid bifurcation. Normal right A1 segments of the anterior cerebral artery. Normal left A1 segments of the anterior cerebral artery. Normal intact anterior communicating artery (ACOM). Normal bilateral A2 segments of the anterior cerebral arteries. Normal right M1 and M2 segments of the middle cerebral arteries, with a normal M1 bifurcation. Normal left M1 and M2 segments of the middle cerebral arteries, with a normal M1 bifurcation. Normal right posterior communicating artery (PCOM). Normal left posterior communicating artery (PCOM). Normal bilateral vertebral arteries. Normal basilar artery with a normal basilar bifurcation. The visualized bilateral superior cerebellar (SCA) arteries are normal. Normal bilateral P1, P2 and visualized P3 segments of the posterior cerebral arteries. There is no demonstrated aneurysm of the [place]. There is no demonstrated abnormality of the visualized brain. AORTIC ARCH: There is atherosclerotic calcific plaque formation of the aortic arch and great vessels arising from the aortic arch, without a hemodynamically significant stenosis. There is a normal origin of the brachiocephalic, left common carotid, and left subclavian arteries. RIGHT CAROTID ARTERIES: Normal right common carotid artery (CCA). There is mild atherosclerotic plaque formation with minimal narrowing of the right carotid bulb. Normal origin of the right internal carotid (ICA) artery without a hemodynamically significant stenosis. Normal visualized cervical portion of the right internal carotid artery. Normal origin of the right external carotid artery (ECA). LEFT CAROTID ARTERIES: Normal left common carotid artery (CCA). There is mild atherosclerotic plaque formation with minimal narrowing of the left carotid bulb. There is mild atherosclerotic plaque formation of the origin of the left internal carotid artery with less than 50% cross sectional diameter stenosis. Normal visualized cervical portion of the left internal carotid artery. Normal origin of the left external carotid artery (ECA). VERTEBRAL ARTERIES: Normal bilateral vertebral arteries. CT/CTA Head AND Neck W/ Contrast IMPRESSION: No acute abnormalities, CTA Head and neck within normal limits for age. Electronically Signed: Maximo Panda MD at 23:41 EDT , Service support ,
--- NOTE | 2020-02-06 22:57 | CCHN_ITS ---
Hospitalist Note Patient with difficult examination for NIH upon presentation per discussion with RN given underlying Parkinson's disease and dementia. Unsuccessful attempts to contact family. Patient transitioned at 7 pm to PCU. Currently now stating he normally has R hand paresthesias but noting it is currently also in his RUE. Reviewed chart and noting no acute findings aside chronic parietal infarcts and microvascular ischemia with atrophy on CT head, chest x-ray with no acute cardiopulmonary findings, CBC and BMP not marked appearing, troponin less than 0.015, urinalysis significant for UTI, will initiate Rocephin now as had been dosed for a.m. Given patient complaint discussed with staff to initiate stroke protocol and planned CTA head and neck following review of renal function and premedication given allergy history noting shortness of breath with iodine- containing products. Patient currently on aspirin 325 mg daily.
[2020-02-06] MEDS: DiphenhydrAMINE 50 MG/ML Syringe IV (23:06)
[2020-02-06] MEDS: 0.9% Saline Lock 10 ML Syringe IV (23:06)
[2020-02-06 23:18] LABS: Magnesium 1.5 mg/dL (1.6-2.6)
[2020-02-06 23:21] LABS: Bedside Glucose 166 mg/dL (70-110)
--- NOTE | 2020-02-06 23:30 | RAD_ITS ---
STUDY: X-RAY - RIGHT HUMERUS REASON FOR EXAM: Male, 74 years old. NUMBNESS/PAIN IN RIGHT ARM. NO KNOWN INJURY TECHNIQUE: 3 view(s) of the humerus. COMPARISON: None. FINDINGS: Mild osteopenia. There is no acute displaced fracture or dislocation.. There is no demonstrated fracture or osseous destructive process. Degenerative changes of the acromioclavicular joint. Decreased humeral acromial distance. Surgical changes along the proximal forearm. RAD/Humerus min 2 Views IMPRESSION: There is no acute displaced fracture or dislocation. Osteopenia, degenerative and postsurgical changes. Electronically Signed: Jen Oglesby MD at 5:00 EDT , Service support ,
--- NOTE | 2020-02-06 23:30 | NURSING ---
This RN entered pt room around 1 to complete vital signs and HS medications. Pt c/o numbness to his right arm that was all the way up his arm and more severe than the numbness he usually has in his right hand. Around 22:49 this RN paged hospitalist to notify of new finding. Hospitalist came to PCU to see patient. Stroke Alert was called. Pt off floor for imaging at this time.
[2020-02-07] VITALS (16 sets, daily range): BP systolic 119–150; BP diastolic 52–107; PULSE 69–79; RESP 11–18; TEMP 36.3–36.7; O2SAT 96–100; BMI 28.8
[2020-02-07] MEDS: Gabapentin 600 MG Tablet PO ×3 (00:06→21:58)
[2020-02-07] MEDS: Atorvastatin Calcium 20 MG Tablet PO ×2 (00:06→21:58)
[2020-02-07] MEDS: buPROPion 75 MG Tablet 150 MG PO ×3 (00:06→21:58)
[2020-02-07] MEDS: Carbidopa/Levodopa 25/250 Tablet PO ×4 (00:06→17:11)
[2020-02-07] MEDS: 0.9% Saline Lock 10 ML Syringe IV ×2 (00:19→09:53)
[2020-02-07 05:44] LABS: Absolute Lymphocyte Count 0.24 X10^3/uL (0.83-4.51); Absolute Neutrophil Count 6.4 X10^3/uL (2.0-7.7); Basophil# 0.01 X10^3/uL; Basophil% 0.1 % (0-1); Eosinophil# 0.01 X10^3/uL; Eosinophils% 0.1 % (0-5); Hematocrit 28.7 % (40-54); Hemoglobin 8.5 g/dL (13.0-16.5); Lymphocyte # 0.24 X10^3/ul (4.0); Lymphocyte % 3.5 % (19-41); Mean Corp Hgb Conc 29.6 g/dL (32-36); Mean Corpuscular Hgb 26.9 pg (27.0-32.0); Mean Corpuscular Volume 90.8 fL (80-94); Mean Platelet Vol. 8.6 fl (6.2-12.0); Monocyte# 0.07 X10^3/uL; Neutrophil # 6.39 X10^3/uL (2.7-7.7); Neutrophil % 94.4 % (47-70); POSITIVE DIFFERENTIAL YES; POSITIVE MORPHOLOGY YES; Platelet Count 372 K/mm3 (150-450); RBC Distribution Width CV 18.6 % (11.6-14.6); RBC Distribution Width SD 62.6 fl (35.1-43.9); Red Blood Count 3.16 M/mm3 (4.6-6.2); White Blood Count 6.8 K/mm3 (4.4-11.0)
--- NOTE | 2020-02-07 05:55 | ECHOCS_ITS ---
Reason For Study: SYNCOPE Procedure This was a 2D Doppler, Color Flow transthoracic echocardiogram. The study was technically difficult. POOR ACCOUSTIC WINDOWS. Contrast injection was performed. Exam performed portable in patient room. Left Ventricle Normal LV size. The estimated ejection fraction is 60 %. No regional wall motion abnormalities noted. Right Ventricle Normal RV size. Atria Normal left atrium. Normal right atrium. Mitral Valve There is mild mitral annular calcification. Aortic Valve Trisinus/trileaflet aortic valve. Moderate focal aortic valve calcification. Peak aortic valve gradient 40 mmHg. Mean aortic valve gradient 26 mmHg. Moderate aortic stenosis. Pulmonic Valve The pulmonic valve is not well visualized. Great Vessels Normal aortic root. The pulmonary artery is normal size. Pericardium/Pleural No pericardial effusion. Medication Diluted definity 4.0ml given slow IV push to enhance endocardial definition. MMode/2D Measurements & Calculations LVIDd: 4.7 cm IVSd: 1.2 cm LVOT diam: 2.0 cm LVIDs: 3.5 cm LVPWd: 0.95 cm LVOT area: 3.0 cm2 RVDd: 3.4 cm FS: 24.3 % Ao root diam: 3.7 cm LAV(MOD-bp): 60.7 ml LA A4 area: 19.5 cm2 LAV(MOD-bp) Indexed: 33.5 ml/m2 LAV(MOD-sp2): 64.7 ml LAV(MOD-sp4): 56.9 ml LA dimension(2D): 4.6 cm RA A4 area: 16.8 cm2 Time Measurements MV dec time: 0.15 sec Doppler Measurements & Calculations MV E max valentin: 106.2 cm/sec Lat Peak E' Valentin: 9.7 cm/sec Med Peak E' Valentin: 7.0 cm/sec MV A max valentin: 63.0 cm/sec E/E' lat: 10.9 E/E' med: 15.1 MV E/A: 1.7 Ao V2 max: 313.8 cm/sec LV V1 max: 88.7 cm/sec SV(LVOT): 59.2 ml Ao max P.4 mmHg LV V1 max P.2 mmHg Ao V2 mean: 248.8 cm/sec LV V1 mean P.8 mmHg Ao mean P.1 mmHg LV V1 mean: 63.7 cm/sec Ao V2 VTI: 71.9 cm LV V1 VTI: 19.8 cm YASMEEN(I,D): 0.82 cm2 YASMEEN(V,D): 0.85 cm2 TR max valentin: 296.9 cm/sec TR max P.3 mmHg Interpretation Summary Normal LV size. The estimated ejection fraction is 60 %. Moderate focal aortic valve calcification. Moderate aortic stenosis. Contrast injection was performed. The study was technically difficult. The study was technically limited. Ordering Physician: Gayle Randall Referring Physician: Roselyn Goldberg Performed By: Seinna Shen RDCS, RVT
[2020-02-07] MEDS: Levothyroxine 137 MCG Tablet PO (06:14)
[2020-02-07 06:15] LABS: Differential Indicated SCAN CRITERIA MET
[2020-02-07 06:16] LABS: NRBC Flagged by Analyzer 0 % (0-5)
[2020-02-07 06:17] LABS: Differential Comment SCANNED
[2020-02-07 06:24] LABS: ALB/GLOB Ratio 0.7 RATIO (0.9-2.4); AST(SGOT) 25 U/L (15-37); Alanine Aminotransfer ALT/SGPT 8 U/L (16-61); Albumin, Serum 2.9 g/dL (3.2-5.0); Alkaline Phosphatase 152 U/L (45-117); Anion Gap 8 (5-15); BUN 22 mg/dL (7-18); Bilirubin, Direct 0.11 mg/dL (0.00-0.30); Calcium,Total 8.6 mg/dL (8.5-10.1); Chloride 108 mmol/L (98-107); Cholesterol 123 mg/dL (200); EST Glomerular Filtration Rate 77 mL/min (>60); Est Glom Filt Rate - Afr Amer 94 mL/min (>60); Estimated Creatinine Clearance 53.44 ml/min; Globulin 4.4 g/dL (2.2-4.2); Glucose 223 mg/dL (74-106); High Density Lipoprotein 43 mg/dL; Magnesium 2.1 mg/dL (1.6-2.6); Phosphorus 2.6 mg/dL (2.5-4.9); Potassium 4.6 mmol/L (3.5-5.1); Protein, Total 7.3 g/dL (6.4-8.2); Sodium Level 137 mmol/L (136-145); Thyroid Stim Hormone (TSH) 1.79 uIU/mL (0.358-3.74); Triglycerides 72 mg/dL; Very Low Density Lipoprotein 14 mg/dL (5-40)
[2020-02-07] MEDS: Ipratropium/Albuterol Sulfate 3 ML AMPUL.NEB INHALATION ×3 (07:19→19:13)
[2020-02-07 09:00] LABS: Vitamin B12 1416 pg/mL (211-911)
[2020-02-07] MEDS: dilTIAZem CD 180 MG Capsule PO (09:50)
[2020-02-07] MEDS: Sertraline 100 MG Tablet 150 MG PO (09:50)
[2020-02-07] MEDS: Aspirin 325 MG Tablet PO (09:50)
[2020-02-07] MEDS: Lisinopril 5 MG Tablet PO (09:50)
[2020-02-07] MEDS: Cyanocobalamin 500 MCG Tablet 1000 MCG PO (09:52)
[2020-02-07] MEDS: Isosorbide Mononitrate 60 MG Tablet PO (09:52)
[2020-02-07] MEDS: Calcium Carb/Vitamin D 1 TABLET Tablet PO (09:53)
[2020-02-07] MEDS: Ferrous Sulfate 325 MG Tablet PO ×3 (09:53→17:11)
[2020-02-07] MEDS: Insulin Lispro 100 UNIT/ML INSULN.PEN SC (09:57)
[2020-02-07 12:06] LABS: Bedside Glucose 286 mg/dL (70-110)
[2020-02-07] MEDS: Insulin Lispro 100 UNIT/ML INSULN.PEN 6 UNIT SC (12:32)
[2020-02-07 13:06] LABS: Bedside Glucose 334 mg/dL (70-110)
--- NOTE | 2020-02-07 14:25 | US_ITS ---
STUDY: RENAL ULTRASOUND - COMPLETE REASON FOR EXAM: Male, 74 years old. Elevated BUN/creatinine TECHNIQUE: Ultrasound evaluation of the kidneys was performed with real-time and static brito-scale imaging. COMPARISON: 2014 FINDINGS: RIGHT KIDNEY: Normal location of the right kidney, which is normal in size. The right kidney measures 10.0 x 4.3 x 4.4 cm. There is a normal cortex of the right kidney. The renal cortex measures 1.2 cm. There is no right renal mass or cyst. There are no right renal calculi. There is no right hydronephrosis. DISTAL RIGHT URETER: There is non-visualization of the distal right ureter. There is no demonstrated right ureterovesical junction calculus. There is a visualized right ureteral jet. LEFT KIDNEY: Normal location of the left kidney, which is normal in size. The left kidney measures 10.4 x 4.0 x 5.0 cm. There is a normal cortex of the left kidney. The renal cortex measures 1.1 cm. There is a simple 1.3 x 1.6 x 1.0 cm cyst. There are no left renal calculi. There is no left hydronephrosis. DISTAL LEFT URETER: There is non-visualization of the distal left ureter. There is no demonstrated left ureterovesical junction calculus. There is a visualized left ureteral jet. AORTA: There is no elongation or tortuosity of the abdominal aorta. I.V.C.: The IVC is patent. BLADDER: The bladder is sonographically normal US/Kidney and Bladder IMPRESSION: No suspicious sonographic findings, stable simple left renal cyst needs no specific follow-up imaging Electronically Signed: Wil Marie MD at 18:14 EDT , Service support ,
--- NOTE | 2020-02-07 14:26 | PCM.PROGNOTE ---
<Loly Boateng - Last Filed: 02/07/20 14:40> Subjective: Patient seen and examined. Denies urinary symptoms. Denies fever, chills. Denies nausea, vomiting. Denies further numbness, pain in right arm. - Physical Exam Vitals/I&O's: Vital Signs Temp Pulse Resp BP Pulse Ox 98.0 F 79 16 119/52 L 96 02/07/20 12:05 02/07/20 13:35 02/07/20 13:35 02/07/20 12:05 02/07/20 13:35 Oxygen Delivery Method Room Air Weight: 167 lb 15.876 oz Body Mass Index (BMI) 28.8 Finger Stick Blood Glucose 166 Orthostatic Vital Signs Start: 02/07/20 06:01 Freq: q24h Status: Active Protocol: Activity Type Activity Date Activity User E-Sign Co-Sign Detail Recorded Client Recorded Date Recorded By Document 02/07/20 06:01 YINKA [id number] 02/07/20 06:08 YINKA 02/07/20 06:01 Orthostatic Vitals Standing -Blood Pressure (90/60-120/80) 125/58 H -Extremity Use Left Arm -Pulse Rate (60-100) 71 Sitting -Blood Pressure (90/60-120/80) 132/56 H -Extremity Use Left Arm -Pulse Rate (60-100) 69 Lying -Blood Pressure (90/60-120/80) 136/61 H -Extremity Use Left Arm -Pulse Rate (60-100) 70 Intake and Output for Last 24 Hours 02/05/20 02/06/20 02/07/20 23:59 23:59 23:59 Intake Total 1049.17 / 1049.17 529.83 / 529.83 Output Total 0 / 0 1100 / 1100 Balance 1049.17 / 1049.17 -570.17 / -570.17 General: Alert, Oriented x3, Cooperative HEENT: Atraumatic, PERRLA, EOMI, Normocephalic Neck: Supple, No JVD, Negative Carotid Bruits Lungs: Clear to auscultation, Normal air movement Cardiovascular: Regular rate, Murmur Abdomen: Bowel Sounds Present, Soft, Non Tender, Non-Distended Extremities: No clubbing, No cyanosis, No edema, Capillary Refill Less than 3 Seconds Skin: No rashes, No breakdown Musculoskeletal: No Tenderness to Palpation of Joints or Extremities Neurological: Cranial nerves II-XII grossly intact, Neuro grossly intact Psych/Mental Status: Normal Affect, Appropriate Microbiology Past 72 Hours 02/06/20 17:03 Urine, Clean Catch Urine Culture - Preliminary Presumptive E. coli 02/06/20 17:38 Blood Culture (Wb) - Right Wrist Blood Culture - Preliminary Laboratory Results 02/06/20 16:25: WBC 6.7, RBC 3.00 L, Hgb 8.1 L, Hct 26.6 L, MCV 88.7, MCH 27.0, MCHC 30.5 L, RDW Std Deviation 59.8 H, RDW Coeff of Mat 18.3 H, Plt Count 362, MPV 8.6, Immature Gran % (Auto) 0.700, Neut % (Auto) 82.0 H, Lymph % (Auto) 7.3 L, [place] % (Auto) 8.1, Eos % (Auto) 1.5, Baso % (Auto) 0.4, Absolute Neuts (auto) 5.5, Absolute Lymphs (auto) 0.49 L, Nucleated RBC % 0, Differential Comment SCANNED 02/06/20 16:25: Sodium 139, Potassium 5.6 H, Chloride 109 H, Carbon Dioxide 22.0, Anion Gap 8, BUN 24 H, Creatinine 1.11, Estim Creat Clear Calc 48.15, Est GFR (MDRD) Af Amer 83, Est GFR (MDRD) Non-Af 69, BUN/Creatinine Ratio 21.6 H, Glucose 163 H, Calcium 9.0, Troponin I < 0.015 02/06/20 16:25: Total Creatine Kinase 89 02/06/20 17:03: Urine Color Yellow, Urine Clarity Cloudy, Urine pH 5.0, Ur Specific [place] 1.020, Urine Protein 30 H, Urine Glucose (UA) Normal, Urine Ketones 15 H, Urine Occult Blood 25 H, Urine Nitrite Negative, Urine Bilirubin 1 H, Urine Urobilinogen Normal, Ur Leukocyte Esterase 500 H, Urine RBC 0 SEEN, Urine WBC 50-100 SEEN, Ur Squamous Epith Cells 0-5 SEEN, Urine Bacteria 3+, Hyaline Casts 0-5 SEEN, Urine Mucus 0 SEEN 02/06/20 19:58: Sodium 140, Potassium 5.1, Chloride 111 H, Carbon Dioxide 23.0, Anion Gap 6, BUN 25 H, Creatinine 1.08, Estim Creat Clear Calc 49.49, Est GFR (MDRD) Af Amer 86, Est GFR (MDRD) Non-Af 71, BUN/Creatinine Ratio 23.1 H, Glucose 152 H, Calcium 8.6 02/06/20 19:58: Magnesium 1.5 L 02/06/20 23:09: POC Glucose 166 H 02/07/20 05:32: WBC 6.8, RBC 3.16 L, Hgb 8.5 L, Hct 28.7 L, MCV 90.8, MCH 26.9 L, MCHC 29.6 L, RDW Std Deviation 62.6 H, RDW Coeff of Mat 18.6 H, Plt Count 372, MPV 8.6, Immature Gran % (Auto) 0.900, Neut % (Auto) 94.4 H, Lymph % (Auto) 3.5 L, [place] % (Auto) 1.0, Eos % (Auto) 0.1, Baso % (Auto) 0.1, Absolute Neuts (auto) 6.4, Absolute Lymphs (auto) 0.24 L, Nucleated RBC % 0, Differential Comment SCANNED 02/07/20 05:32: Sodium 137, Potassium 4.6, Chloride 108 H, Carbon Dioxide 21.0, Anion Gap 8, BUN 22 H, Creatinine 1.00, Estim Creat Clear Calc 53.44, Est GFR (MDRD) Af Amer 94, Est GFR (MDRD) Non-Af 77, BUN/Creatinine Ratio 22.0 H, Glucose 223 H, Calcium 8.6, Phosphorus 2.6, Magnesium 2.1, Total Bilirubin 0.30, Direct Bilirubin 0.11, AST 25, ALT 8 L, Alkaline Phosphatase 152 H, Total Protein 7.3, Albumin 2.9 L, Globulin 4.4 H, Albumin/Globulin Ratio 0.7 L, Triglycerides 72, Cholesterol 123, LDL Cholesterol 66, VLDL Cholesterol 14, HDL Cholesterol 43, Folate 15.80, TSH 1.79 02/07/20 05:32: Vitamin B12 1416 H 02/07/20 05:32: Vit D 1,25-Dihydroxy Pending 02/07/20 09:26: POC Glucose 286 H 02/07/20 12:30: POC Glucose 334 H Current Medications Al Hydroxide/Mg Hydroxide (Mylanta Ii) 30 ml PO Q6H PRN PRN PRN Reason: Gastric Burning Albuterol Sulfate (Ventolin Aerosols) 2.5 mg INHALATION Q2H PRN PRN PRN Reason: dyspnea, wheezing Albuterol/Ipratropium (Duoneb) 3 ml INHALATION Q6HWA.RT [facility] Last Admin: 02/07/20 13:35 Dose: 3 ml Documented by: Aspirin (Aspirin) 325 mg PO DAILYCM [facility] Last Admin: 02/07/20 09:50 Dose: 325 mg Documented by: Atorvastatin Calcium (Lipitor) 20 mg PO QHS [facility] Last Admin: 02/07/20 00:06 Dose: 20 mg Documented by: Bupropion HCl (Wellbutrin Tablets) 150 mg PO BID [facility] Last Admin: 02/07/20 09:52 Dose: 150 mg Documented by: Calcium/Vitamin D (Os-Severiano 500mg + D) 1 tablet PO DAILY [facility] Last Admin: 02/07/20 09:53 Dose: 1 tablet Documented by: Carbidopa/Levodopa (Sinemet) 1.5 tablet PO Q6 [facility] Last Admin: 02/07/20 12:34 Dose: 1.5 tablet Documented by: Dextrose (D50w Syringe) 0 gm IV X1 PRN; Protocol PRN Reason: Hypoglycemia Diltiazem HCl (Cardizem Cd) 180 mg PO DAILY [facility] Last Admin: 02/07/20 09:50 Dose: 180 mg Documented by: Ferrous Sulfate (Ferrous Sulfate) 325 mg PO TIDCM [facility] Last Admin: 02/07/20 12:37 Dose: 325 mg Documented by: Gabapentin (Neurontin) 600 mg PO BID [facility] Last Admin: 02/07/20 09:50 Dose: 600 mg Documented by: Glucagon () 1 mg IM .X1 PRN PRN Reason: Hypoglycemia Hydralazine HCl (Apresoline Iv) 5 mg IV Q30M PRN PRN Reason: to maintain BP goals Hydroxyzine HCl (Atarax Tablet) 10 mg PO TID PRN PRN PRN Reason: ANXIETY Sodium Chloride () 250 mls @ 15 mls/hr IV .[id number] PRN PRN Reason: Saline Flush Sodium Chloride () 250 mls @ 15 mls/hr IV .[id number] PRN PRN Reason: Additional IVPB Infusion Sodium Chloride () 1,000 mls @ 50 mls/hr IV .Q20H [facility] Last Infusion: 02/07/20 03:00 Dose: 50 mls/hr Documented by: Ceftriaxone Sodium 2 gm/ (Sodium Chloride) 50 mls @ 100 mls/hr IV DAILY@2200 [facility] Last Infusion: 02/07/20 00:29 Dose: Infused Documented by: Insulin Glargine (Lantus (Bkc)) 26 units SC QHS [facility] Last Admin: 02/07/20 00:12 Dose: 26 u Documented by: Insulin Human Lispro (Humalog Kwikpen ([facility])) 5 unit SC BREAKFAST [facility] Last Admin: 02/07/20 09:57 Dose: 5 u Documented by: Insulin Human Lispro (Humalog Kwikpen ([facility])) 6 unit SC LUNCH [facility] Last Admin: 02/07/20 12:32 Dose: 6 u Documented by: Insulin Human Lispro (Humalog Kwikpen ([facility])) 7 unit SC DINNER [facility] Isosorbide Mononitrate (Imdur) 60 mg PO DAILY [facility] Last Admin: 02/07/20 09:52 Dose: 60 mg Documented by: Labetalol HCl (Trandate) 10 - 20 mg IV Q10M PRN PRN PRN Reason: to maintain BP goals Levothyroxine Sodium (Synthroid) 137 mcg PO DAILY@0600 [facility] Last Admin: 02/07/20 06:14 Dose: 137 mcg Documented by: Lisinopril (Zestril) 5 mg PO DAILY [facility] Last Admin: 02/07/20 09:50 Dose: 5 mg Documented by: Melatonin (Melatonin) 3 mg PO QHS PRN PRN PRN Reason: INSOMNIA Morphine Sulfate () 2 mg IV Q4H PRN PRN PRN Reason: Pain Score 6-10/10 Ondansetron HCl (Zofran) 4 mg IV Q8H PRN PRN PRN Reason: NAUSEA/VOMITING Oxycodone HCl (Oxyir) 5 mg PO Q4H PRN PRN PRN Reason: Pain Score 4-10/10 Senna/Docusate Sodium (Senokot-S, Katelnyn-Colace) 2 tablet PO BID PRN PRN PRN Reason: Constipation Sertraline HCl (Zoloft) 150 mg PO DAILY [facility] Last Admin: 02/07/20 09:50 Dose: 150 mg Documented by: Sodium Chloride () 10 - 40 ml IV UD PRN PRN Reason: SALINE FLUSH Last Admin: 02/07/20 09:53 Dose: 10 ml Documented by: Medical Necessity - Tobacco Use Smoking Status: Former smoker Assessment/Plan All Active Problems (Last Reviewed 02/06/20 @ 18:[address] Gayle Randall, DO) Implantable cardioverter-defibrillator (ICD) at end of battery life (Acute) Carotid bruit (Acute) Paroxysmal ventricular tachycardia (Acute) IDALIA (acute kidney injury) (Resolved) Community acquired pneumonia (Resolved) Influenza A (Resolved) 1. Syncope-suspect secondary to mild dehydration with underlying E. coli UTI with bacteremia. Troponin negative. EKG without ST-T changes. TSH normal. Echocardiogram demonstrates an EF of 60%, moderate aortic stenosis. Orthostatic vitals negative. 2. Acute E. coli UTI with bacteremia-ID following. Continue IV Rocephin. 3. Type 2 diabetes [id number] with sliding scale insulin. 4. Parkinson's disease-continue Sinemet. 5. CAD with history of CABG x4-follows with Dr. Garcia. Continue medical management with aspirin, statin, isosorbide, lisinopril. 6. Non-rheumatic aortic valve stenosis-stable per echo. 7. Paroxysmal atrial fibrillation/paroxysmal ventricular tachycardia status post ICD placement-continue Cardizem, aspirin. 8. Hypertension-stable, continue current regimen. 9. Hyperlipidemia-continue statin. 10. History of testicular cancer-stable. 11. Chronic normocytic anemia-stable. DVT prophylaxis- lovenox sc This patient was seen by CANDELARIA Sargent under the supervision of Dr. Armstrong. <Zohaib Armstrong - Last Filed: 02/07/20 15:03> Subjective: Seen and examined. Patient has multiple comorbidities including coronary artery disease status post four-vessel CABG, paroxysmal A. fib, aortic stenosis, proximal ventricular tachycardia status post AICD, carotid stenosis and Parkinson's disease. Is admitted with syncope and fall. Denies nausea vomiting. Patient also had intentional weight loss of about 100 pounds. His temperature was also 102 Fahrenheit as per EMS squad but was 99 F in ED He denies burning micturition, increased frequency or urgency but has history of recurrent UTI and is followed Dr. Perla in the past. Denies history of kidney stone or stricture. - Physical Exam Vitals/I&O's: Vital Signs Temp Pulse Resp BP Pulse Ox 98.0 F 79 16 119/52 L 96 02/07/20 12:05 02/07/20 13:35 02/07/20 13:35 02/07/20 12:05 02/07/20 13:35 Oxygen Delivery Method Room Air Weight: 167 lb 15.876 oz Body Mass Index (BMI) 28.8 Finger Stick Blood Glucose 166 Orthostatic Vital Signs Start: 02/07/20 06:01 Freq: q24h Status: Active Protocol: Activity Type Activity Date Activity User E-Sign Co-Sign Detail Recorded Client Recorded Date Recorded By Document 02/07/20 06:01 YINKA [id number] 02/07/20 06:08 YINKA 02/07/20 06:01 Orthostatic Vitals Standing -Blood Pressure (90/60-120/80) 125/58 H -Extremity Use Left Arm -Pulse Rate (60-100) 71 Sitting -Blood Pressure (90/60-120/80) 132/56 H -Extremity Use Left Arm -Pulse Rate (60-100) 69 Lying -Blood Pressure (90/60-120/80) 136/61 H -Extremity Use Left Arm -Pulse Rate (60-100) 70 Intake and Output for Last 24 Hours 02/05/20 02/06/20 02/07/20 23:59 23:59 23:59 Intake Total 1049.17 / 1049.17 529.83 / 529.83 Output Total 0 / 0 1100 / 1100 Balance 1049.17 / 1049.17 -570.17 / -570.17 General: Alert, Oriented x3, Cooperative HEENT: Atraumatic, PERRLA, EOMI, Normocephalic Neck: Supple, No JVD, Negative Carotid Bruits Lungs: Clear to auscultation, Normal air movement Cardiovascular: Regular rate, Normal S1, Normal S2 - murmur over aortic area suggestive of aortic stenosis, Murmur - Systolic 4/6, - - Paced rhythm on nuclear monitoring technician Abdomen: Bowel Sounds Present, Soft, Non Tender Extremities: No edema, Capillary Refill Less than 3 Seconds Skin: No rashes, No breakdown Musculoskeletal: No Tenderness to Palpation of Joints or Extremities, Arthritic Changes Neurological: Cranial nerves II-XII grossly intact, Deep Tendon Reflexes 2+/4 and Symmetrical, Neuro grossly intact Psych/Mental Status: Normal Affect, Appropriate Microbiology Past 72 Hours 02/06/20 17:03 Urine, Clean Catch Urine Culture - Preliminary Presumptive E. coli 02/06/20 17:38 Blood Culture (Wb) - Right Wrist Blood Culture - Preliminary Laboratory Results 02/06/20 16:25: WBC 6.7, RBC 3.00 L, Hgb 8.1 L, Hct 26.6 L, MCV 88.7, MCH 27.0, MCHC 30.5 L, RDW Std Deviation 59.8 H, RDW Coeff of Mat 18.3 H, Plt Count 362, MPV 8.6, Immature Gran % (Auto) 0.700, Neut % (Auto) 82.0 H, Lymph % (Auto) 7.3 L, [place] % (Auto) 8.1, Eos % (Auto) 1.5, Baso % (Auto) 0.4, Absolute Neuts (auto) 5.5, Absolute Lymphs (auto) 0.49 L, Nucleated RBC % 0, Differential Comment SCANNED 02/06/20 16:25: Sodium 139, Potassium 5.6 H, Chloride 109 H, Carbon Dioxide 22.0, Anion Gap 8, BUN 24 H, Creatinine 1.11, Estim Creat Clear Calc 48.15, Est GFR (MDRD) Af Amer 83, Est GFR (MDRD) Non-Af 69, BUN/Creatinine Ratio 21.6 H, Glucose 163 H, Calcium 9.0, Troponin I < 0.015 02/06/20 16:25: Total Creatine Kinase 89 02/06/20 17:03: Urine Color Yellow, Urine Clarity Cloudy, Urine pH 5.0, Ur Specific [place] 1.020, Urine Protein 30 H, Urine Glucose (UA) Normal, Urine Ketones 15 H, Urine Occult Blood 25 H, Urine Nitrite Negative, Urine Bilirubin 1 H, Urine Urobilinogen Normal, Ur Leukocyte Esterase 500 H, Urine RBC 0 SEEN, Urine WBC 50-100 SEEN, Ur Squamous Epith Cells 0-5 SEEN, Urine Bacteria 3+, Hyaline Casts 0-5 SEEN, Urine Mucus 0 SEEN 02/06/20 19:58: Sodium 140, Potassium 5.1, Chloride 111 H, Carbon Dioxide 23.0, Anion Gap 6, BUN 25 H, Creatinine 1.08, Estim Creat Clear Calc 49.49, Est GFR (MDRD) Af Amer 86, Est GFR (MDRD) Non-Af 71, BUN/Creatinine Ratio 23.1 H, Glucose 152 H, Calcium 8.6 02/06/20 19:58: Magnesium 1.5 L 02/06/20 23:09: POC Glucose 166 H 02/07/20 05:32: WBC 6.8, RBC 3.16 L, Hgb 8.5 L, Hct 28.7 L, MCV 90.8, MCH 26.9 L, MCHC 29.6 L, RDW Std Deviation 62.6 H, RDW Coeff of Mat 18.6 H, Plt Count 372, MPV 8.6, Immature Gran % (Auto) 0.900, Neut % (Auto) 94.4 H, Lymph % (Auto) 3.5 L, [place] % (Auto) 1.0, Eos % (Auto) 0.1, Baso % (Auto) 0.1, Absolute Neuts (auto) 6.4, Absolute Lymphs (auto) 0.24 L, Nucleated RBC % 0, Differential Comment SCANNED 02/07/20 05:32: Sodium 137, Potassium 4.6, Chloride 108 H, Carbon Dioxide 21.0, Anion Gap 8, BUN 22 H, Creatinine 1.00, Estim Creat Clear Calc 53.44, Est GFR (MDRD) Af Amer 94, Est GFR (MDRD) Non-Af 77, BUN/Creatinine Ratio 22.0 H, Glucose 223 H, Calcium 8.6, Phosphorus 2.6, Magnesium 2.1, Total Bilirubin 0.30, Direct Bilirubin 0.11, AST 25, ALT 8 L, Alkaline Phosphatase 152 H, Total Protein 7.3, Albumin 2.9 L, Globulin 4.4 H, Albumin/Globulin Ratio 0.7 L, Triglycerides 72, Cholesterol 123, LDL Cholesterol 66, VLDL Cholesterol 14, HDL Cholesterol 43, Folate 15.80, TSH 1.79 02/07/20 05:32: Vitamin B12 1416 H 02/07/20 05:32: Vit D 1,25-Dihydroxy Pending 02/07/20 09:26: POC Glucose 286 H 02/07/20 12:30: POC Glucose 334 H Current Medications Al Hydroxide/Mg Hydroxide (Mylanta Ii) 30 ml PO Q6H PRN PRN PRN Reason: Gastric Burning Albuterol Sulfate (Ventolin Aerosols) 2.5 mg INHALATION Q2H PRN PRN PRN Reason: dyspnea, wheezing Albuterol/Ipratropium (Duoneb) 3 ml INHALATION Q6HWA.RT [facility] Last Admin: 02/07/20 13:35 Dose: 3 ml Documented by: Aspirin (Aspirin) 325 mg PO DAILYCM [facility] Last Admin: 02/07/20 09:50 Dose: 325 mg Documented by: Atorvastatin Calcium (Lipitor) 20 mg PO QHS [facility] Last Admin: 02/07/20 00:06 Dose: 20 mg Documented by: Bupropion HCl (Wellbutrin Tablets) 150 mg PO BID [facility] Last Admin: 02/07/20 09:52 Dose: 150 mg Documented by: Calcium/Vitamin D (Os-Severiano 500mg + D) 1 tablet PO DAILY [facility] Last Admin: 02/07/20 09:53 Dose: 1 tablet Documented by: Carbidopa/Levodopa (Sinemet) 1.5 tablet PO Q6 [facility] Last Admin: 02/07/20 12:34 Dose: 1.5 tablet Documented by: Dextrose (D50w Syringe) 0 gm IV X1 PRN; Protocol PRN Reason: Hypoglycemia Diltiazem HCl (Cardizem Cd) 180 mg PO DAILY [facility] Last Admin: 02/07/20 09:50 Dose: 180 mg Documented by: Ferrous Sulfate (Ferrous Sulfate) 325 mg PO TIDCM [facility] Last Admin: 02/07/20 12:37 Dose: 325 mg Documented by: Gabapentin (Neurontin) 600 mg PO BID [facility] Last Admin: 02/07/20 09:50 Dose: 600 mg Documented by: Glucagon () 1 mg IM .X1 PRN PRN Reason: Hypoglycemia Hydralazine HCl (Apresoline Iv) 5 mg IV Q30M PRN PRN Reason: to maintain BP goals Hydroxyzine HCl (Atarax Tablet) 10 mg PO TID PRN PRN PRN Reason: ANXIETY Sodium Chloride () 250 mls @ 15 mls/hr IV .[id number] PRN PRN Reason: Saline Flush Sodium Chloride () 250 mls @ 15 mls/hr IV .[id number] PRN PRN Reason: Additional IVPB Infusion Sodium Chloride () 1,000 mls @ 50 mls/hr IV .Q20H [facility] Last Infusion: 02/07/20 03:00 Dose: 50 mls/hr Documented by: Ceftriaxone Sodium 2 gm/ (Sodium Chloride) 50 mls @ 100 mls/hr IV DAILY@2200 [facility] Last Infusion: 02/07/20 00:29 Dose: Infused Documented by: Insulin Glargine (Lantus (Bkc)) 26 units SC QHS [facility] Last Admin: 02/07/20 00:12 Dose: 26 u Documented by: Insulin Human Lispro (Humalog Kwikpen ([facility])) 5 unit SC BREAKFAST [facility] Last Admin: 02/07/20 09:57 Dose: 5 u Documented by: Insulin Human Lispro (Humalog Kwikpen ([facility])) 6 unit SC LUNCH [facility] Last Admin: 02/07/20 12:32 Dose: 6 u Documented by: Insulin Human Lispro (Humalog Kwikpen ([facility])) 7 unit SC DINNER [facility] Isosorbide Mononitrate (Imdur) 60 mg PO DAILY [facility] Last Admin: 02/07/20 09:52 Dose: 60 mg Documented by: Labetalol HCl (Trandate) 10 - 20 mg IV Q10M PRN PRN PRN Reason: to maintain BP goals Levothyroxine Sodium (Synthroid) 137 mcg PO DAILY@0600 [facility] Last Admin: 02/07/20 06:14 Dose: 137 mcg Documented by: Lisinopril (Zestril) 5 mg PO DAILY [facility] Last Admin: 02/07/20 09:50 Dose: 5 mg Documented by: Melatonin (Melatonin) 3 mg PO QHS PRN PRN PRN Reason: INSOMNIA Morphine Sulfate () 2 mg IV Q4H PRN PRN PRN Reason: Pain Score 6-10/10 Ondansetron HCl (Zofran) 4 mg IV Q8H PRN PRN PRN Reason: NAUSEA/VOMITING Oxycodone HCl (Oxyir) 5 mg PO Q4H PRN PRN PRN Reason: Pain Score 4-10/10 Senna/Docusate Sodium (Senokot-S, Katelynn-Colace) 2 tablet PO BID PRN PRN PRN Reason: Constipation Sertraline HCl (Zoloft) 150 mg PO DAILY [facility] Last Admin: 06/08/20 09:50 Dose: 150 mg Documented by: Sodium Chloride () 10 - 40 ml IV UD PRN PRN Reason: SALINE FLUSH Last Admin: 02/07/20 09:53 Dose: 10 ml Documented by: Assessment/Plan This patient was seen in conjunction with Loly VELARDE. I have independently interviewed and examined the patient and reviewed pertinent history, examination findings, laboratory and plan of management. I have reviewed the note and agree with the documented findings with the few additional points. In brief, patient is admitted for syncope most probably secondary to dehydration/orthostatic hypotension and E. coli UTI with bacteremia. Patient denies dysuria or increased frequency urgency. On IV ceftriaxone 2 g daily. First orthostatic 02/05 shows drop in systolic blood pressure 102?82 but heart rate did not show much change. Repeat orthostatic blood pressure did not show significant change. On IV fluid normal saline. 2D echo was done which shows EF 60% with moderate aortic stenosis. Cardiac conditions: Coronary artery disease status post CABG four-vessel, PAF/paroxysmal V. tach status post AICD, moderate aortic stenosis: Patient follows Dr. Garcia. Home medications aspirin, statin isosorbide and lisinopril continued. Other comorbidities type 2 diabetes mellitus, Parkinson's disease, hypertension, dyslipidemia history of testicular cancer and chronic normocytic normochromic. Multiple comorbidities complicates the present care and expect difficult and delay recovery Blood sugar is high, insulin adjusted I have discussed my assessment with Loly VELARDE and orders have been reviewed. Total time of the visit including total time spent in counseling or coordination of care, (more than 50% of the total time, spent in obtaining medical information from nurses and other ancillary care providers), , review of labs and imaging is 30 minutes Inpatient E&M: [id number] [id number]
--- NOTE | 2020-02-07 15:55 | CON.PCM_ITS ---
Problem List (1) Bacteremia due to Gram-negative bacteria Status: Acute Reason for Consult: bacteremia Consulted by: Dr. Armstrong History of Present Illness: The patient is a 74 year old M with h/o Parkinson, had been feeling ok until a fall at home. Some chills. No fever, no dysuria, no abd pain. Had some increased frequency and dribbling with urination, but this has been present for several months, improving recently. Came to ED, found to have uti, started on ceftriaxone, feeling much better. Full ROS Performed and neg except as noted above. - Medical History Past Medical History (Chronic Problems): Chronic Problems (Last Reviewed 02/06/20 @ 18:[address] 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) CABG x4- MONTERO to LAD, EPIFANIO to the Distal RCA, Right Radial Artery to the OM branch of CX, and Reverse SVG from the aorta to the Distal RCA 08/17/01 Aortocoronary bypass status (Chronic ~08/17/01) CABG x4- MONTERO to LAD, EPIFANIO to the Distal RCA, Right Radial Artery to the OM branch of CX, and Reverse SVG from the aorta to the Distal RCA 08/17/01 Hyperlipidemia (Chronic) Long-term use of high-risk medication (Chronic) Implantable cardioverter-defibrillator (ICD) in situ (Chronic ~10/23/11) Type 2 diabetes mellitus (Chronic) Allergies/Adverse Reactions: Allergies Iodine and Iodide Containing Produc Allergy (Verified 02/06/20 16:28) Shortness of breath simvastatin Adverse Reaction (Verified 02/06/20 16:28) Other Home Medications: Ambulatory Orders Medication Instructions Recorded Atorvastatin Calcium [Lipitor] 20 mg PO QHS 09/27/14 Diltiazem HCl [Diltiazem 24Hr ER 180 mg PO DAILY 09/27/14 (Cd)] Insulin Aspart [Novolog Flexpen] 5 units SC BREAKFAST 09/27/14 Insulin Aspart [Novolog Flexpen] 6 units SC LUNCH 09/27/14 Insulin Aspart [Novolog Flexpen] 7 units SC DINNER 09/27/14 Insulin Glargine [Lantus SoloStar 26 units SC QHS 09/27/14 Pen] Lisinopril [Zestril] 5 mg PO DAILY 09/27/14 buPROPion tablets [Wellbutrin 150 mg PO BID 09/27/14 tablets] hydrOXYzine tablet [Atarax tablet] 10 mg PO TID PRN PRN 09/27/14 metFORMIN HCl [Glucophage] 500 mg PO TIDCM 09/27/14 aspirin 325 mg tablet 325 mg PO QDAY 01/12/18 carbidopa 25 mg-levodopa 250 mg 2 tab PO Q6H tab 01/12/18 tablet cyanocobalamin (vitamin B-12) 1,000 mcg PO QDAY 01/12/18 1,000 mcg tablet gabapentin 600 mg tablet 600 mg PO BID 01/12/18 calcium citrate 315 mg-vitamin D3 1 tab PO DAILY 10/22/18 250 unit tablet ferrous sulfate 325 mg (65 mg 325 mg PO TID tab 10/22/18 iron) tablet isosorbide mononitrate 60 mg 30 mg PO DAILY tab 10/22/18 tablet,extended release 24 hr levothyroxine 137 mcg tablet 137 mcg PO DAILY 10/22/18 sertraline 100 mg tablet 150 mg PO DAILY tab 10/22/18 Acetaminophen [Tylenol Tablet] 650 mg PO Q6H PRN PRN tab 11/25/18 Albuterol Aerosols [Ventolin 2.5 mg INHALATION Q4HWA.RT 11/25/18 Aerosols] vial.neb. Ipratropium/Albuterol Sulfate 3 ml INHALATION Q6HWA.RT ampul.neb 11/25/18 [Duoneb] Ascorbic Acid [Vitamin C] 500 mg PO DAILY 02/07/20 Entacapone [Comtan] 200 mg PO 02/07/20 Famotidine 20 mg PO QHS 02/07/20 Omeprazole 40 mg PO BID 02/07/20 - Social History SMOKING STATUS:: Former smoker Vital Signs Temp Pulse Resp BP Pulse Ox 98.0 F 79 16 119/52 L 96 02/07/20 12:05 02/07/20 13:35 02/07/20 13:35 02/07/20 12:05 02/07/20 13:35 Oxygen Delivery Method Room Air Weight: 76.2 kg Body Mass Index (BMI) 28.8 Finger Stick Blood Glucose 166 Orthostatic Vital Signs Start: 02/07/20 06:01 Freq: q24h Status: Active Protocol: Activity Type Activity Date Activity User E-Sign Co-Sign Detail Recorded Client Recorded Date Recorded By Document 02/07/20 06:01 YINKA [id number] 02/07/20 06:08 YINKA 02/07/20 06:01 Orthostatic Vitals Standing -Blood Pressure (90/60-120/80) 125/58 H -Extremity Use Left Arm -Pulse Rate (60-100) 71 Sitting -Blood Pressure (90/60-120/80) 132/56 H -Extremity Use Left Arm -Pulse Rate (60-100) 69 Lying -Blood Pressure (90/60-120/80) 136/61 H -Extremity Use Left Arm -Pulse Rate (60-100) 70 Microbiology Past 72 Hours 02/06/20 17:03 Urine Culture - Preliminary Urine, Clean Catch Presumptive E. coli 02/06/20 17:38 Blood Culture - Preliminary Blood Culture (Wb) - Right Wrist Laboratory Tests Past 24 Hrs 02/06/20 02/06/20 02/06/20 16:25 16:25 16:25 WBC 6.7 RBC 3.00 L Hgb 8.1 L Hct 26.6 L MCV 88.7 MCH 27.0 MCHC 30.5 L RDW Std Deviation 59.8 H RDW Coeff of Mat 18.3 H Plt Count 362 MPV 8.6 Immature Gran % (Auto) 0.700 Neut % (Auto) 82.0 H Lymph % (Auto) 7.3 L Powell % (Auto) 8.1 Eos % (Auto) 1.5 Baso % (Auto) 0.4 Absolute Neuts (auto) 5.5 Absolute Lymphs (auto) 0.49 L Nucleated RBC % 0 Differential Comment SCANNED Sodium 139 Potassium 5.6 H Chloride 109 H Carbon Dioxide 22.0 Anion Gap 8 BUN 24 H Creatinine 1.11 Estim Creat Clear Calc 48.15 Est GFR (MDRD) Af Amer 83 Est GFR (MDRD) Non-Af 69 BUN/Creatinine Ratio 21.6 H Glucose 163 H Calcium 9.0 Phosphorus Magnesium Total Bilirubin Direct Bilirubin AST ALT Alkaline Phosphatase Total Creatine Kinase 89 Troponin I < 0.015 Total Protein Albumin Globulin Albumin/Globulin Ratio Triglycerides Cholesterol LDL Cholesterol VLDL Cholesterol HDL Cholesterol Vitamin B12 Vit D 1,25-Dihydroxy Folate TSH Urine Color Urine Clarity Urine pH Ur Specific [place] Urine Protein Urine Glucose (UA) Urine Ketones Urine Occult Blood Urine Nitrite Urine Bilirubin Urine Urobilinogen Ur Leukocyte Esterase Urine RBC Urine WBC Ur Squamous Epith Cells Urine Bacteria Hyaline Casts Urine Mucus 02/06/20 02/06/20 02/06/20 17:03 19:58 19:58 WBC RBC Hgb Hct MCV MCH MCHC RDW Std Deviation RDW Coeff of Mat Plt Count MPV Immature Gran % (Auto) Neut % (Auto) Lymph % (Auto) Powell % (Auto) Eos % (Auto) Baso % (Auto) Absolute Neuts (auto) Absolute Lymphs (auto) Nucleated RBC % Differential Comment Sodium 140 Potassium 5.1 Chloride 111 H Carbon Dioxide 23.0 Anion Gap 6 BUN 25 H Creatinine 1.08 Estim Creat Clear Calc 49.49 Est GFR (MDRD) Af Amer 86 Est GFR (MDRD) Non-Af 71 BUN/Creatinine Ratio 23.1 H Glucose 152 H Calcium 8.6 Phosphorus Magnesium 1.5 L Total Bilirubin Direct Bilirubin AST ALT Alkaline Phosphatase Total Creatine Kinase Troponin I Total Protein Albumin Globulin Albumin/Globulin Ratio Triglycerides Cholesterol LDL Cholesterol VLDL Cholesterol HDL Cholesterol Vitamin B12 Vit D 1,25-Dihydroxy Folate TSH Urine Color Yellow Urine Clarity Cloudy Urine pH 5.0 Ur Specific [place] 1.020 Urine Protein 30 H Urine Glucose (UA) Normal Urine Ketones 15 H Urine Occult Blood 25 H Urine Nitrite Negative Urine Bilirubin 1 H Urine Urobilinogen Normal Ur Leukocyte Esterase 500 H Urine RBC 0 SEEN Urine WBC 50-100 SEEN Ur Squamous Epith Cells 0-5 SEEN Urine Bacteria 3+ Hyaline Casts 0-5 SEEN Urine Mucus 0 SEEN 02/07/20 02/07/20 02/07/20 05:32 05:32 05:32 WBC 6.8 RBC 3.16 L Hgb 8.5 L Hct 28.7 L MCV 90.8 MCH 26.9 L MCHC 29.6 L RDW Std Deviation 62.6 H RDW Coeff of Mat 18.6 H Plt Count 372 MPV 8.6 Immature Gran % (Auto) 0.900 Neut % (Auto) 94.4 H Lymph % (Auto) 3.5 L Powell % (Auto) 1.0 Eos % (Auto) 0.1 Baso % (Auto) 0.1 Absolute Neuts (auto) 6.4 Absolute Lymphs (auto) 0.24 L Nucleated RBC % 0 Differential Comment SCANNED Sodium 137 Potassium 4.6 Chloride 108 H Carbon Dioxide 21.0 Anion Gap 8 BUN 22 H Creatinine 1.00 Estim Creat Clear Calc 53.44 Est GFR (MDRD) Af Amer 94 Est GFR (MDRD) Non-Af 77 BUN/Creatinine Ratio 22.0 H Glucose 223 H Calcium 8.6 Phosphorus 2.6 Magnesium 2.1 Total Bilirubin 0.30 Direct Bilirubin 0.11 AST 25 ALT 8 L Alkaline Phosphatase 152 H Total Creatine Kinase Troponin I Total Protein 7.3 Albumin 2.9 L Globulin 4.4 H Albumin/Globulin Ratio 0.7 L Triglycerides 72 Cholesterol 123 LDL Cholesterol 66 VLDL Cholesterol 14 HDL Cholesterol 43 Vitamin B12 1416 H Vit D 1,25-Dihydroxy Folate 15.80 TSH 1.79 Urine Color Urine Clarity Urine pH Ur Specific [place] Urine Protein Urine Glucose (UA) Urine Ketones Urine Occult Blood Urine Nitrite Urine Bilirubin Urine Urobilinogen Ur Leukocyte Esterase Urine RBC Urine WBC Ur Squamous Epith Cells Urine Bacteria Hyaline Casts Urine Mucus 02/07/20 05:32 WBC RBC Hgb Hct MCV MCH MCHC RDW Std Deviation RDW Coeff of Mat Plt Count MPV Immature Gran % (Auto) Neut % (Auto) Lymph % (Auto) Powell % (Auto) Eos % (Auto) Baso % (Auto) Absolute Neuts (auto) Absolute Lymphs (auto) Nucleated RBC % Differential Comment Sodium Potassium Chloride Carbon Dioxide Anion Gap BUN Creatinine Estim Creat Clear Calc Est GFR (MDRD) Af Amer Est GFR (MDRD) Non-Af BUN/Creatinine Ratio Glucose Calcium Phosphorus Magnesium Total Bilirubin Direct Bilirubin AST ALT Alkaline Phosphatase Total Creatine Kinase Troponin I Total Protein Albumin Globulin Albumin/Globulin Ratio Triglycerides Cholesterol LDL Cholesterol VLDL Cholesterol HDL Cholesterol Vitamin B12 Vit D 1,25-Dihydroxy Pending Folate TSH Urine Color Urine Clarity Urine pH Ur Specific [place] Urine Protein Urine Glucose (UA) Urine Ketones Urine Occult Blood Urine Nitrite Urine Bilirubin Urine Urobilinogen Ur Leukocyte Esterase Urine RBC Urine WBC Ur Squamous Epith Cells Urine Bacteria Hyaline Casts Urine Mucus - Other Studies Radiology: [] reviewed Other Studies: [] Route of nutrition/ use of supplements: [] Nutritional Intake: [] IV Site: [] Morgan Catheter: [] - Physical Exam General: Alert, Oriented x3, Cooperative, No apparent distress HEENT: Atraumatic, PERRLA, EOMI Neck: Supple, No Nodes Lungs: Clear to auscultation, Normal air movement Cardiovascular: Regular rate, Regular Rhythm Abdomen: Soft, Non Tender, Non-Distended, - - no flank pain Extremities: No edema Skin: No rashes IV Site: Peripheral, without redness Musculoskeletal: No Tenderness to Palpation of Joints or Extremities - Assessment/Plan Antibiotics: [] Assessment/Plan: [] GNR bacteremia from uti - improving on ceftriaxone, feeling better, wbc normal, no fever here. Ucx showing 100k ecoli. Will follow, thank you.
--- NOTE | 2020-02-07 16:01 | CHAPLAIN ---
Type of Pastoral Visit _x__ Initial Visit ___ Follow-up Visit ___ On-call Visit ___ General Patient Visit ___ Spiritual Assessment ___ Family Conference ___ Bereavement ___ Rapid Response ___ Code Blue ___ Other (describe below) Pastoral Care Referral From _x__ Patient ___ Family ___ Nurse ___ Physician ___ Barrel Rib Matting Machine Operator ___ Visual Aid Expert ___ Other (describe below) Sacrament/Intervention _x__ Active listening ___ Anointing ___ Sikhism ___ Bereavement ___ Communion ___ Candice exploration ___ _x__ Life review ___ Prayer ___ Reconciliation ___ Sacrament of Sick _x__ Supportive presence ___ Wedding ___ Other (describe below) Pastoral Comments patient asked this child care coordinator to stay so he could talk; pt is very talkative about his life and his history; pt expresses some negatives attitudes about life and his opinions of life; DR came into room and this child care coordinator left the room
[2020-02-07 16:26] LABS: Bedside Glucose 330 mg/dL (70-110)
[2020-02-07] MEDS: Insulin Lispro 100 UNIT/ML INSULN.PEN 10 UNIT SC (17:11)
[2020-02-07] MEDS: Pantoprazole Sodium 40 MG Tablet PO (17:11)
[2020-02-07] MEDS: 0.9% Normal Saline 1,000 ML 50 ML IV (19:35)
[2020-02-07 22:10] LABS: Bedside Glucose 273 mg/dL (70-110)
[2020-02-08] VITALS (13 sets, daily range): BP systolic 120–156; BP diastolic 51–103; PULSE 69–80; RESP 16–18; TEMP 36.4–36.8; O2SAT 94–100; BMI 28.8
[2020-02-08] MEDS: Carbidopa/Levodopa 25/250 Tablet PO ×5 (00:13→23:04)
[2020-02-08] MEDS: Levothyroxine 137 MCG Tablet PO (05:07)
[2020-02-08] MEDS: Ipratropium/Albuterol Sulfate 3 ML AMPUL.NEB INHALATION ×2 (07:03→13:21)
[2020-02-08] MEDS: Pantoprazole Sodium 40 MG Tablet PO (08:26)
[2020-02-08] MEDS: Isosorbide Mononitrate 60 MG Tablet PO (08:26)
[2020-02-08] MEDS: Ferrous Sulfate 325 MG Tablet PO ×3 (08:26→16:55)
[2020-02-08] MEDS: Calcium Carb/Vitamin D 1 TABLET Tablet PO (08:26)
[2020-02-08] MEDS: Aspirin 325 MG Tablet PO (08:26)
[2020-02-08] MEDS: dilTIAZem CD 180 MG Capsule PO (08:26)
[2020-02-08] MEDS: Gabapentin 600 MG Tablet PO ×2 (08:26→22:53)
[2020-02-08] MEDS: Lisinopril 5 MG Tablet PO (08:27)
[2020-02-08] MEDS: Ascorbic Acid 500 MG Tablet PO (08:27)
[2020-02-08] MEDS: buPROPion 75 MG Tablet 150 MG PO ×2 (08:27→22:53)
[2020-02-08] MEDS: Sertraline 100 MG Tablet 150 MG PO (08:27)
[2020-02-08] MEDS: Insulin Lispro 100 UNIT/ML INSULN.PEN 8 UNIT SC (08:35)
[2020-02-08 08:41] LABS: Bedside Glucose 169 mg/dL (70-110)
[2020-02-08] MEDS: Insulin Lispro 100 UNIT/ML INSULN.PEN 10 UNIT SC ×2 (11:17→16:54)
--- NOTE | 2020-02-08 11:26 | CASEMGMT ---
Addendum entered by Augusta Kam 02/08/20 12:49: JUNE called Ana Maria at [employer] and she was able to print the fax from the second number she gave SW. She will review referral and then get back with JUNE. Augusta [employer] Original Note: PT/OT feels patient needs rehab. SW spoke with patient and he asked SW to call his daughter, Christel. JUNE called Christel, she is aware patient needs placement and asked if a referral could be faxed to [employer] as this is where she works. JUNE called [employer] with referral as well as faxed referral. SW received a call from Reyna at [employer] and she is not able to open the fax, an error message comes up. SW tried it again and it still did not work. SW also tried another number and it did not work. They spoke with their IT Dept and they said everything is fine on their end. JUNE had Reyna email the error message she received and then JUNE called [facility] IT Dept for assistance. Augusta [employer]
[2020-02-08 11:40] LABS: Bedside Glucose 194 mg/dL (70-110)
--- NOTE | 2020-02-08 12:18 | PN.ID_ITS ---
Patient Problems: Active and Suspected Problems (Last Reviewed 02/06/20 @ 18:[address] Gayle Randall, DO) Bacteremia due to Gram-negative bacteria (Acute) Subjective: Feeling good, no fever, no abd pain, no n/v/d. - Physical Exam Vitals/I&O's: Vital Signs Temp Pulse Resp BP Pulse Ox 97.6 F L 75 18 142/63 H 100 02/08/20 08:10 02/08/20 08:10 02/08/20 08:10 02/08/20 08:10 02/08/20 08:10 Oxygen Delivery Method Room Air Weight: 77.1 kg Body Mass Index (BMI) 28.8 Finger Stick Blood Glucose 166 Orthostatic Vital Signs Start: 02/07/20 06:01 Freq: q24h Status: Active Protocol: Activity Type Activity Date Activity User E-Sign Co-Sign Detail Recorded Client Recorded Date Recorded By Document 02/08/20 05:18 AML [id number] 02/08/20 05:19 AML 02/08/20 05:18 Orthostatic Vitals Standing -Blood Pressure (90/60-120/80) 135/57 H -Extremity Use Right Arm -Pulse Rate (60-100) 70 Sitting -Blood Pressure (90/60-120/80) 120/103 H -Extremity Use Right Arm -Pulse Rate (60-100) 75 Lying -Blood Pressure (90/60-120/80) 148/98 H -Extremity Use Right Arm -Pulse Rate (60-100) 80 Intake and Output for Last 24 Hours 02/06/20 02/07/20 02/08/20 23:59 23:59 23:59 Intake Total 1049.17 / 1049.17 1829.00 / 1879.00 50 / 50 Output Total 0 / 0 1100 / 1100 Balance 1049.17 / 1049.17 729.00 / 779.00 50 / 50 General: Alert, Cooperative, No apparent distress Lungs: Clear to auscultation, Normal air movement Cardiovascular: Regular rate, Regular Rhythm Abdomen: Soft, Non Tender, Non-Distended Skin: No rashes Microbiology Past 72 Hours 02/06/20 17:03 Urine, Clean Catch Urine Culture - Final Presumptive E. coli 02/06/20 17:38 Blood Culture (Wb) - Right Wrist Blood Culture - Preliminary Alpha Hemolytic Streptococcus Laboratory Results 02/07/20 12:30: POC Glucose 334 H 02/07/20 16:20: POC Glucose 330 H 02/07/20 21:55: POC Glucose 273 H 02/08/20 08:05: POC Glucose 169 H 02/08/20 11:15: POC Glucose 194 H Current Medications Al Hydroxide/Mg Hydroxide (Mylanta Ii) 30 ml PO Q6H PRN PRN PRN Reason: Gastric Burning Albuterol Sulfate (Ventolin Aerosols) 2.5 mg INHALATION Q2H PRN PRN PRN Reason: dyspnea, wheezing Albuterol/Ipratropium (Duoneb) 3 ml INHALATION Q6HWA.RT [facility] Last Admin: 02/08/20 07:03 Dose: 3 ml Documented by: Amoxicillin (Amoxil) 500 mg PO Q8 [facility] Ascorbic Acid (Vitamin C) 500 mg PO DAILY [facility] Last Admin: 02/08/20 08:27 Dose: 500 mg Documented by: Aspirin (Aspirin) 325 mg PO DAILYCM [facility] Last Admin: 02/08/20 08:26 Dose: 325 mg Documented by: Atorvastatin Calcium (Lipitor) 20 mg PO QHS [facility] Last Admin: 02/07/20 21:58 Dose: 20 mg Documented by: Bupropion HCl (Wellbutrin Tablets) 150 mg PO BID [facility] Last Admin: 02/08/20 08:27 Dose: 150 mg Documented by: Calcium/Vitamin D (Os-Severiano 500mg + D) 1 tablet PO DAILY [facility] Last Admin: 02/08/20 08:26 Dose: 1 tablet Documented by: Carbidopa/Levodopa (Sinemet) 1.5 tablet PO Q6 [facility] Last Admin: 02/08/20 11:19 Dose: 1.5 tablet Documented by: Dextrose (D50w Syringe) 0 gm IV X1 PRN; Protocol PRN Reason: Hypoglycemia Diltiazem HCl (Cardizem Cd) 180 mg PO DAILY [facility] Last Admin: 02/08/20 08:26 Dose: 180 mg Documented by: Enoxaparin Sodium (Lovenox) 40 mg SC DAILY@0600 [facility] Last Admin: 02/08/20 05:04 Dose: Not Given Documented by: Entacapone (Comtan) 200 mg PO Q6 [facility] Last Admin: 02/08/20 11:19 Dose: 200 mg Documented by: Ferrous Sulfate (Ferrous Sulfate) 325 mg PO TIDCM [facility] Last Admin: 02/08/20 11:19 Dose: 325 mg Documented by: Gabapentin (Neurontin) 600 mg PO BID [facility] Last Admin: 02/08/20 08:26 Dose: 600 mg Documented by: Glucagon () 1 mg IM .X1 PRN PRN Reason: Hypoglycemia Hydralazine HCl (Apresoline Iv) 5 mg IV Q30M PRN PRN Reason: to maintain BP goals Hydroxyzine HCl (Atarax Tablet) 10 mg PO TID PRN PRN PRN Reason: ANXIETY Sodium Chloride () 250 mls @ 15 mls/hr IV .[id number] PRN PRN Reason: Saline Flush Sodium Chloride () 250 mls @ 15 mls/hr IV .[id number] PRN PRN Reason: Additional IVPB Infusion Sodium Chloride () 1,000 mls @ 50 mls/hr IV .Q20H [facility] Last Infusion: 02/07/20 23:55 Dose: 50 mls/hr Documented by: Insulin Glargine (Lantus (Bkc)) 26 units SC QHS [facility] Last Admin: 02/07/20 21:57 Dose: 26 u Documented by: Insulin Glargine (Lantus (Bkc)) 10 units SC BREAKFAST [facility] Last Admin: 02/08/20 08:36 Dose: 10 u Documented by: Insulin Human Lispro (Humalog Kwikpen (Bkc)) 10 unit SC LUNCH [facility] Last Admin: 02/08/20 11:17 Dose: 10 u Documented by: Insulin Human Lispro (Humalog Kwikpen (Bkc)) 10 unit SC DINNER [facility] Last Admin: 02/07/20 17:11 Dose: 10 u Documented by: Insulin Human Lispro (Humalog Kwikpen (Bkc)) 8 unit SC BREAKFAST [facility] Last Admin: 02/08/20 08:35 Dose: 8 u Documented by: Isosorbide Mononitrate (Imdur) 60 mg PO DAILY [facility] Last Admin: 02/08/20 08:26 Dose: 60 mg Documented by: Labetalol HCl (Trandate) 10 - 20 mg IV Q10M PRN PRN PRN Reason: to maintain BP goals Levothyroxine Sodium (Synthroid) 137 mcg PO DAILY@0600 [facility] Last Admin: 02/08/20 05:07 Dose: 137 mcg Documented by: Lisinopril (Zestril) 5 mg PO DAILY [facility] Last Admin: 02/08/20 08:27 Dose: 5 mg Documented by: Melatonin (Melatonin) 3 mg PO QHS PRN PRN PRN Reason: INSOMNIA Morphine Sulfate () 2 mg IV Q4H PRN PRN PRN Reason: Pain Score 6-10/10 Ondansetron HCl (Zofran) 4 mg IV Q8H PRN PRN PRN Reason: NAUSEA/VOMITING Oxycodone HCl (Oxyir) 5 mg PO Q4H PRN PRN PRN Reason: Pain Score 4-10/10 Pantoprazole Sodium (Protonix) 40 mg PO DAILY [facility] Last Admin: 02/08/20 08:26 Dose: 40 mg Documented by: Senna/Docusate Sodium (Senokot-S, Katelynn-Colace) 2 tablet PO BID PRN PRN PRN Reason: Constipation Sertraline HCl (Zoloft) 150 mg PO DAILY [facility] Last Admin: 02/08/20 08:27 Dose: 150 mg Documented by: Sodium Chloride () 10 - 40 ml IV UD PRN PRN Reason: SALINE FLUSH Last Admin: 02/07/20 09:53 Dose: 10 ml Documented by: Medical Necessity - Tobacco Use Smoking Status: Unknown if ever smoked Route of nutrition/ use of supplements: [] Nutritional Intake: [] IV Site: [] Morgan Catheter: [] - Assessment/Plan Antibiotics: [] Assessment/Plan: [] ecoli complicated uti - improving on ceftriaxone, feeling better, wbc normal, no fever here. Ucx showing 100k ecoli. Single bcx with strep, possible contaminant. Ok for d/c home on 5 more days of amox. Will follow, d/w primary team
--- NOTE | 2020-02-08 12:39 | PCM.PROGNOTE ---
<Loly Boateng - Last Filed: 02/08/20 12:45> Patient Problems: Active and Suspected Problems (Last Reviewed 02/06/20 @ 18:[address] Gayle Randall DO) Bacteremia due to Gram-negative bacteria (Acute) Subjective: Patient seen and examined. Agreeable to SNF for rehab at discharge. Patient reports generalized weakness. Denies fever, chills. - Physical Exam Vitals/I&O's: Vital Signs Temp Pulse Resp BP Pulse Ox 97.6 F L 75 18 142/63 H 100 02/08/20 08:10 02/08/20 08:10 02/08/20 08:10 02/08/20 08:10 02/08/20 08:10 Oxygen Delivery Method Room Air Weight: 169 lb 15.622 oz Body Mass Index (BMI) 28.8 Finger Stick Blood Glucose 166 Orthostatic Vital Signs Start: 02/07/20 06:01 Freq: q24h Status: Active Protocol: Activity Type Activity Date Activity User E-Sign Co-Sign Detail Recorded Client Recorded Date Recorded By Document 02/08/20 05:18 AML [id number] 02/08/20 05:19 AML 02/08/20 05:18 Orthostatic Vitals Standing -Blood Pressure (90/60-120/80) 135/57 H -Extremity Use Right Arm -Pulse Rate (60-100) 70 Sitting -Blood Pressure (90/60-120/80) 120/103 H -Extremity Use Right Arm -Pulse Rate (60-100) 75 Lying -Blood Pressure (90/60-120/80) 148/98 H -Extremity Use Right Arm -Pulse Rate (60-100) 80 Intake and Output for Last 24 Hours 02/06/20 02/07/20 02/08/20 23:59 23:59 23:59 Intake Total 1049.17 / 1049.17 1829.00 / 1879.00 50 / 50 Output Total 0 / 0 1100 / 1100 Balance 1049.17 / 1049.17 729.00 / 779.00 50 / 50 General: Alert, Oriented x3, Cooperative HEENT: Atraumatic, PERRLA, EOMI, Normocephalic Neck: Supple, No JVD, Negative Carotid Bruits Lungs: Clear to auscultation, Normal air movement Cardiovascular: Regular rate, Murmur Abdomen: Bowel Sounds Present, Soft, Non Tender, Non-Distended Extremities: No clubbing, No cyanosis, No edema, Capillary Refill Less than 3 Seconds Skin: No rashes, No breakdown Musculoskeletal: No Tenderness to Palpation of Joints or Extremities Neurological: Cranial nerves II-XII grossly intact, Neuro grossly intact Psych/Mental Status: Normal Affect, Appropriate Microbiology Past 72 Hours 02/06/20 17:03 Urine, Clean Catch Urine Culture - Final Presumptive E. coli 02/06/20 17:38 Blood Culture (Wb) - Right Wrist Blood Culture - Preliminary Alpha Hemolytic Streptococcus Laboratory Results 02/07/20 12:30: POC Glucose 334 H 02/07/20 16:20: POC Glucose 330 H 02/07/20 21:55: POC Glucose 273 H 02/08/20 08:05: POC Glucose 169 H 02/08/20 11:15: POC Glucose 194 H Current Medications Al Hydroxide/Mg Hydroxide (Mylanta Ii) 30 ml PO Q6H PRN PRN PRN Reason: Gastric Burning Albuterol Sulfate (Ventolin Aerosols) 2.5 mg INHALATION Q2H PRN PRN PRN Reason: dyspnea, wheezing Albuterol/Ipratropium (Duoneb) 3 ml INHALATION Q6HWA.RT [facility] Last Admin: 02/08/20 07:03 Dose: 3 ml Documented by: Amoxicillin (Amoxil) 500 mg PO Q8 [facility] Ascorbic Acid (Vitamin C) 500 mg PO DAILY [facility] Last Admin: 02/08/20 08:27 Dose: 500 mg Documented by: [facility]in) [facility] Last Admin: 02/08/20 08:26 Dose: 325 mg Documented by: Atorvastatin Calcium (Lipitor) 20 mg PO QHS [facility] Last Admin: 02/07/20 21:58 Dose: 20 mg Documented by: Bupropion HCl (Wellbutrin Tablets) 150 mg PO BID [facility] Last Admin: 02/08/20 08:27 Dose: 150 mg Documented by: Calcium/Vitamin D (Os-Severiano 500mg + D) 1 tablet PO DAILY [facility] Last Admin: 02/08/20 08:26 Dose: 1 tablet Documented by: Carbidopa/Levodopa (Sinemet) 1.5 tablet PO Q6 [facility] Last Admin: 02/08/20 11:19 Dose: 1.5 tablet Documented by: Dextrose (D50w Syringe) 0 gm IV X1 PRN; Protocol PRN Reason: Hypoglycemia Diltiazem HCl (Cardizem Cd) 180 mg PO DAILY [facility] Last Admin: 02/08/20 08:26 Dose: 180 mg Documented by: Enoxaparin Sodium (Lovenox) 40 mg SC DAILY@0600 [facility] Last Admin: 02/08/20 05:04 Dose: Not Given Documented by: Entacapone (Comtan) 200 mg PO Q6 [facility] Last Admin: 02/08/20 11:19 Dose: 200 mg Documented by: Ferrous Sulfate (Ferrous Sulfate) 325 mg PO TIDCM [facility] Last Admin: 02/08/20 11:19 Dose: 325 mg Documented by: Gabapentin (Neurontin) 600 mg PO BID [facility] Last Admin: 02/08/20 08:26 Dose: 600 mg Documented by: Glucagon () 1 mg IM .X1 PRN PRN Reason: Hypoglycemia Hydralazine HCl (Apresoline Iv) 5 mg IV Q30M PRN PRN Reason: to maintain BP goals Hydroxyzine HCl (Atarax Tablet) 10 mg PO TID PRN PRN PRN Reason: ANXIETY Sodium Chloride () 250 mls @ 15 mls/hr IV .[id number] PRN PRN Reason: Saline Flush Sodium Chloride () 250 mls @ 15 mls/hr IV .[id number] PRN PRN Reason: Additional IVPB Infusion Sodium Chloride () 1,000 mls @ 50 mls/hr IV .Q20H [facility] Last Infusion: 02/07/20 23:55 Dose: 50 mls/hr Documented by: Insulin Glargine (Lantus (Bkc)) 26 units SC QHS [facility] Last Admin: 02/07/20 21:57 Dose: 26 u Documented by: Insulin Glargine (Lantus (Bkc)) 10 units SC BREAKFAST [facility] Last Admin: 02/08/20 08:36 Dose: 10 u Documented by: Insulin Human Lispro (Humalog Kwikpen (Bk)) 10 unit SC LUNCH [facility] Last Admin: 02/08/20 11:17 Dose: 10 u Documented by: Insulin Human Lispro (Humalog Kwikpen ([facility])) 10 unit SC DINNER [facility] Last Admin: 02/07/20 17:11 Dose: 10 u Documented by: Insulin Human Lispro (Humalog Kwikpen (Bkc)) 8 unit SC BREAKFAST [facility] Last Admin: 02/08/20 08:35 Dose: 8 u Documented by: Isosorbide Mononitrate (Imdur) 60 mg PO DAILY [facility] Last Admin: 02/08/20 08:26 Dose: 60 mg Documented by: Labetalol HCl (Trandate) 10 - 20 mg IV Q10M PRN PRN PRN Reason: to maintain BP goals Levothyroxine Sodium (Synthroid) 137 mcg PO DAILY@0600 [facility] Last Admin: 02/08/20 05:07 Dose: 137 mcg Documented by: Lisinopril (Zestril) 5 mg PO DAILY [facility] Last Admin: 02/08/20 08:27 Dose: 5 mg Documented by: Melatonin (Melatonin) 3 mg PO QHS PRN PRN PRN Reason: INSOMNIA Morphine Sulfate () 2 mg IV Q4H PRN PRN PRN Reason: Pain Score 6-10/10 Ondansetron HCl (Zofran) 4 mg IV Q8H PRN PRN PRN Reason: NAUSEA/VOMITING Oxycodone HCl (Oxyir) 5 mg PO Q4H PRN PRN PRN Reason: Pain Score 4-10/10 Pantoprazole Sodium (Protonix) 40 mg PO DAILY [facility] Last Admin: 02/08/20 08:26 Dose: 40 mg Documented by: Senna/Docusate Sodium (Senokot-S, Katelynn-Colace) 2 tablet PO BID PRN PRN PRN Reason: Constipation Sertraline HCl (Zoloft) 150 mg PO DAILY [facility] Last Admin: 02/08/20 08:27 Dose: 150 mg Documented by: Sodium Chloride () 10 - 40 ml IV UD PRN PRN Reason: SALINE FLUSH Last Admin: 02/07/20 09:53 Dose: 10 ml Documented by: Medical Necessity - Tobacco Use Smoking Status: Unknown if ever smoked Assessment/Plan All Active Problems (Last Reviewed 02/06/20 @ 18:[address] Gayle Randall, DO) Bacteremia due to Gram-negative bacteria (Acute) Implantable cardioverter-defibrillator (ICD) at end of battery life (Acute) Carotid bruit (Acute) Paroxysmal ventricular tachycardia (Acute) IDALIA (acute kidney injury) (Resolved) Community acquired pneumonia (Resolved) Influenza A (Resolved) 1. Syncope-suspect secondary to mild dehydration with underlying E. coli complicated UTI. Troponin negative. EKG without ST-T changes. TSH normal. Echocardiogram demonstrates an EF of 60%, moderate aortic stenosis. Orthostatic vitals negative. 2. Acute complicated E. coli UTI- ID following. Transition from IV Rocephin to oral amoxicillin. Blood cultures 1 out of 2 grew alpha hemolytic strep, suspected contaminant. Plan for 5 days of amoxicillin at discharge per ID recommendations. 3. Type 2 diabetes [id number]-[id number] with sliding scale insulin. 4. Parkinson's disease-continue Sinemet. 5. CAD with history of CABG x4-follows with Dr. Garcia. Continue medical management with aspirin, statin, isosorbide, lisinopril. 6. Non-rheumatic aortic valve stenosis-stable per echo. 7. Paroxysmal atrial fibrillation/paroxysmal ventricular tachycardia status post ICD placement-continue Cardizem, aspirin. 8. Hypertension-stable, continue current regimen. 9. Hyperlipidemia-continue statin. 10. History of testicular cancer-stable. 11. Chronic normocytic anemia-stable. DVT prophylaxis- lovenox sc Discharge planning: SNF pending pre-cert. This patient was seen by CANDELARIA Sargent under the supervision of Dr. Armstrong. <Zohaib Armstrong - Last Filed: 02/08/20 14:56> Subjective: Patient has generalized weakness and needs assistance and support on walking. Denies lower urinary tract symptoms. No fever or chills. - Physical Exam Vitals/I&O's: Vital Signs Temp Pulse Resp BP Pulse Ox 97.5 F L 70 17 122/53 H 97 02/08/20 14:10 02/08/20 14:10 02/08/20 14:10 02/08/20 14:10 02/08/20 14:10 Oxygen Delivery Method Room Air Weight: 169 lb 15.622 oz Body Mass Index (BMI) 28.8 Finger Stick Blood Glucose 166 Orthostatic Vital Signs Start: 02/07/20 06:01 Freq: q24h Status: Active Protocol: Activity Type Activity Date Activity User E-Sign Co-Sign Detail Recorded Client Recorded Date Recorded By Document 02/08/20 05:18 AML [id number] 02/08/20 05:19 AML 02/08/20 05:18 Orthostatic Vitals Standing -Blood Pressure (90/60-120/80) 135/57 H -Extremity Use Right Arm -Pulse Rate (60-100) 70 Sitting -Blood Pressure (90/60-120/80) 120/103 H -Extremity Use Right Arm -Pulse Rate (60-100) 75 Lying -Blood Pressure (90/60-120/80) 148/98 H -Extremity Use Right Arm -Pulse Rate (60-100) 80 Intake and Output for Last 24 Hours 02/06/20 02/07/20 02/08/20 23:59 23:59 23:59 Intake Total 1049.17 / 1049.17 1829.00 / 1879.00 1296.67 / 1296.67 Output Total 0 / 0 1100 / 1100 Balance 1049.17 / 1049.17 729.00 / 779.00 1296.67 / 1296.67 General: Alert, Oriented x3, Cooperative HEENT: Atraumatic, PERRLA, EOMI, Normocephalic Neck: Supple, No JVD, Negative Carotid Bruits Lungs: Clear to auscultation, Normal air movement Cardiovascular: Regular rate, Regular Rhythm, Normal S1, Normal S2, Murmur - Systolic murmur, grade 4/6 present Abdomen: Bowel Sounds Present, Soft, Non Tender, Non-Distended Extremities: No edema, Capillary Refill Less than 3 Seconds Skin: No rashes, No breakdown Musculoskeletal: No Tenderness to Palpation of Joints or Extremities, Arthritic Changes Neurological: Cranial nerves II-XII grossly intact, Deep Tendon Reflexes 2+/4 and Symmetrical, Neuro grossly intact, - - Mild lower extremity weakness, grade 4+/5 Psych/Mental Status: Normal Affect, Appropriate Microbiology Past 72 Hours 02/06/20 17:03 Urine, Clean Catch Urine Culture - Final Presumptive E. coli 02/06/20 17:38 Blood Culture (Wb) - Right Wrist Blood Culture - Preliminary Alpha Hemolytic Streptococcus Laboratory Results 02/07/20 16:20: POC Glucose 330 H 02/07/20 21:55: POC Glucose 273 H 02/08/20 08:05: POC Glucose 169 H 02/08/20 11:15: POC Glucose 194 H Current Medications Al Hydroxide/Mg Hydroxide (Mylanta Ii) 30 ml PO Q6H PRN PRN PRN Reason: Gastric Burning Albuterol Sulfate (Ventolin Aerosols) 2.5 mg INHALATION Q2H PRN PRN PRN Reason: dyspnea, wheezing Albuterol/Ipratropium (Duoneb) 3 ml INHALATION Q6HWA.RT [facility] Last Admin: 02/08/20 13:21 Dose: 3 ml Documented by: Amoxicillin (Amoxil) 500 mg PO Q8 [facility] Ascorbic Acid (Vitamin C) 500 mg PO DAILY [facility] Last Admin: 02/08/20 08:27 Dose: 500 mg Documented by: Aspirin (Aspirin) 325 mg PO DAILYCM [facility] Last Admin: 02/08/20 08:26 Dose: 325 mg Documented by: Atorvastatin Calcium (Lipitor) 20 mg PO QHS [facility] Last Admin: 02/07/20 21:58 Dose: 20 mg Documented by: Bupropion HCl (Wellbutrin Tablets) 150 mg PO BID [facility] Last Admin: 02/08/20 08:27 Dose: 150 mg Documented by: Calcium/Vitamin D (Os-Severiano 500mg + D) 1 tablet PO DAILY [facility] Last Admin: 02/08/20 08:26 Dose: 1 tablet Documented by: Carbidopa/Levodopa (Sinemet) 1.5 tablet PO Q6 [facility] Last Admin: 02/08/20 11:19 Dose: 1.5 tablet Documented by: Dextrose (D50w Syringe) 0 gm IV X1 PRN; Protocol PRN Reason: Hypoglycemia Diltiazem HCl (Cardizem Cd) 180 mg PO DAILY [facility] Last Admin: 02/08/20 08:26 Dose: 180 mg Documented by: Enoxaparin Sodium (Lovenox) 40 mg SC DAILY@0600 [facility] Last Admin: 02/08/20 05:04 Dose: Not Given Documented by: Entacapone (Comtan) 200 mg PO Q6 [facility] Last Admin: 02/08/20 11:19 Dose: 200 mg Documented by: Ferrous Sulfate (Ferrous Sulfate) 325 mg PO TIDCM [facility] Last Admin: 02/08/20 11:19 Dose: 325 mg Documented by: Gabapentin (Neurontin) 600 mg PO BID [facility] Last Admin: 02/08/20 08:26 Dose: 600 mg Documented by: Glucagon () 1 mg IM .X1 PRN PRN Reason: Hypoglycemia Hydralazine HCl (Apresoline Iv) 5 mg IV Q30M PRN PRN Reason: to maintain BP goals Hydroxyzine HCl (Atarax Tablet) 10 mg PO TID PRN PRN PRN Reason: ANXIETY Sodium Chloride () 250 mls @ 15 mls/hr IV .[id number] PRN PRN Reason: Saline Flush Sodium Chloride () 250 mls @ 15 mls/hr IV .[id number] PRN PRN Reason: Additional IVPB Infusion Sodium Chloride () 1,000 mls @ 50 mls/hr IV .Q20H [facility] Last Admin: 02/08/20 14:27 Dose: 50 mls/hr Documented by: Insulin Glargine (Lantus (Bkc)) 26 units SC QHS [facility] Last Admin: 02/07/20 21:57 Dose: 26 u Documented by: Insulin Glargine (Lantus (Bkc)) 10 units SC BREAKFAST [facility] Last Admin: 02/08/20 08:36 Dose: 10 u Documented by: Insulin Human Lispro (Humalog Kwikpen ([facility])) 10 unit SC LUNCH [facility] Last Admin: 02/08/20 11:17 Dose: 10 u Documented by: Insulin Human Lispro (Humalog Kwikpen ([facility])) 10 unit SC DINNER [facility] Last Admin: 02/07/20 17:11 Dose: 10 u Documented by: Insulin Human Lispro (Humalog Kwikpen (Bk)) 8 unit SC BREAKFAST [facility] Last Admin: 02/08/20 08:35 Dose: 8 u Documented by: Isosorbide Mononitrate (Imdur) 60 mg PO DAILY [facility] Last Admin: 02/08/20 08:26 Dose: 60 mg Documented by: Labetalol HCl (Trandate) 10 - 20 mg IV Q10M PRN PRN PRN Reason: to maintain BP goals Levothyroxine Sodium (Synthroid) 137 mcg PO DAILY@0600 [facility] Last Admin: 02/08/20 05:07 Dose: 137 mcg Documented by: Lisinopril (Zestril) 5 mg PO DAILY [facility] Last Admin: 02/08/20 08:27 Dose: 5 mg Documented by: Melatonin (Melatonin) 3 mg PO QHS PRN PRN PRN Reason: INSOMNIA Morphine Sulfate () 2 mg IV Q4H PRN PRN PRN Reason: Pain Score 6-10/10 Ondansetron HCl (Zofran) 4 mg IV Q8H PRN PRN PRN Reason: NAUSEA/VOMITING Oxycodone HCl (Oxyir) 5 mg PO Q4H PRN PRN PRN Reason: Pain Score 4-10/10 Pantoprazole Sodium (Protonix) 40 mg PO DAILY [facility] Last Admin: 02/08/20 08:26 Dose: 40 mg Documented by: Senna/Docusate Sodium (Senokot-S, Katelynn-Colace) 2 tablet PO BID PRN PRN PRN Reason: Constipation Sertraline HCl (Zoloft) 150 mg PO DAILY [facility] Last Admin: 02/08/20 08:27 Dose: 150 mg Documented by: Sodium Chloride () 10 - 40 ml IV UD PRN PRN Reason: SALINE FLUSH Last Admin: 02/07/20 09:53 Dose: 10 ml Documented by: Assessment/Plan This patient was seen in conjunction with Loly VELARDE. I have independently interviewed and examined the patient and reviewed pertinent history, examination findings, laboratory and plan of management. I have reviewed the note and agree with the documented findings with the few additional points. In brief, patient is admitted for syncope most probably secondary to dehydration/orthostatic hypotension and E. coli UTI with bacteremia. Patient denies dysuria or increased frequency urgency. On IV ceftriaxone 2 g daily. First orthostatic 02/05 shows drop in systolic blood pressure 102 to 82 but heart rate did not show much change. Repeat orthostatic blood pressure did not show significant change. Blood pressure stable and IV fluid discontinued 2D echo was done which shows EF 60% with moderate aortic stenosis. Urine culture shows E. coli more than 100,000. Blood culture preliminary shows alphahemolytic Streptococcus most likely contaminant. Seen by ID and recommended amoxicillin 500 mg every 8 hourly. Cardiac conditions: Coronary artery disease status post CABG four-vessel, PAF/paroxysmal V. tach status post AICD, moderate aortic stenosis: Patient follows Dr. Garcia. Home medications aspirin, statin isosorbide and lisinopril continued. Other comorbidities type 2 diabetes mellitus, Parkinson's disease, hypertension, dyslipidemia history of testicular cancer and chronic normocytic normochromic. Multiple comorbidities complicates the present care and expect difficult and delay recovery Blood sugar is high, insulin adjusted I have discussed my assessment with Loly VELARDE and orders have been reviewed. Total time of the visit including total time spent in counseling or coordination of care, (more than 50% of the total time, spent in obtaining medical information from nurses and other ancillary care providers), , review of labs and imaging is 30 minutes Inpatient E&M: [id number] Subs Hosp L2
[2020-02-08] MEDS: 0.9% Normal Saline 1,000 ML 50 ML IV (14:27)
[2020-02-08] MEDS: AMOXICILLIN 500 MG CAPSULE PO ×2 (15:02→22:52)
[2020-02-08 17:06] LABS: Bedside Glucose 205 mg/dL (70-110)
[2020-02-08] MEDS: Atorvastatin Calcium 20 MG Tablet PO (22:53)
[2020-02-08 23:25] LABS: Bedside Glucose 156 mg/dL (70-110)
[2020-02-09] VITALS (12 sets, daily range): BP systolic 119–152; BP diastolic 52–68; PULSE 70–81; RESP 16–19; TEMP 36.4–36.8; O2SAT 95–100; BMI 28.8
[2020-02-09] MEDS: Enoxaparin 40 MG/0.4 ML Syringe SC (05:00)
[2020-02-09] MEDS: Carbidopa/Levodopa 25/250 Tablet PO ×3 (05:00→18:40)
[2020-02-09] MEDS: AMOXICILLIN 500 MG CAPSULE PO ×3 (05:00→22:12)
[2020-02-09] MEDS: Levothyroxine 137 MCG Tablet PO (05:01)
[2020-02-09 05:34] LABS: Vitamin D 1,25-Dihydroxy 36.7 pg/mL (19.9-79.3)
[2020-02-09] MEDS: Ipratropium/Albuterol Sulfate 3 ML AMPUL.NEB INHALATION ×3 (07:42→20:00)
[2020-02-09] MEDS: Insulin Lispro 100 UNIT/ML INSULN.PEN 8 UNIT SC (08:25)
[2020-02-09] MEDS: Aspirin 325 MG Tablet PO (08:27)
[2020-02-09] MEDS: Senna/Docusate Sodium 1 Tablet 2 TABLET PO (08:27)
[2020-02-09] MEDS: Ferrous Sulfate 325 MG Tablet PO ×3 (08:27→17:05)
[2020-02-09 08:36] LABS: Bedside Glucose 164 mg/dL (70-110)
[2020-02-09] MEDS: Pantoprazole Sodium 40 MG Tablet PO (09:38)
[2020-02-09] MEDS: buPROPion 75 MG Tablet 150 MG PO ×2 (09:38→22:12)
[2020-02-09] MEDS: Calcium Carb/Vitamin D 1 TABLET Tablet PO (09:38)
[2020-02-09] MEDS: Ascorbic Acid 500 MG Tablet PO (09:38)
[2020-02-09] MEDS: Sertraline 100 MG Tablet 150 MG PO (09:38)
[2020-02-09] MEDS: Lisinopril 5 MG Tablet PO (09:38)
[2020-02-09] MEDS: Gabapentin 600 MG Tablet PO ×2 (09:38→22:12)
[2020-02-09] MEDS: dilTIAZem CD 180 MG Capsule PO (09:38)
[2020-02-09] MEDS: Isosorbide Mononitrate 60 MG Tablet PO (09:38)
[2020-02-09] MEDS: 0.9% Normal Saline 1,000 ML 50 ML IV (11:05)
--- NOTE | 2020-02-09 11:09 | CASEMGMT ---
Addendum entered by Augusta Kam 02/09/20 11:53: Patient's COVID test will now be processed in house so we should have results today. JUNE called Ana Maria at [facility] and let her know this information and that patient will be coming today. 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 However, his COVID test was sent to [facility] today so not sure when results will return. JUNE let Ana Maria at [facility] know this information. Plan: [facility] pending negative COVID test. Augusta DESIR [employer]IS[employer] OPERATOR
--- NOTE | 2020-02-09 11:48 | PCM.EXTCARCO ---
- Diet 02/07/20 13:02 Diet: Cardiac: Calorie-Controlled Food consistency:: Regular Liquid Consistency:: Regular/Thin Is pt able to select menu?: Yes How many daily calories?: 1800 calorie - Routine Orders/Code Status Enema Type: Fleetz Enema Frequency: Daily PRN Suppository Type: Dulcolax 10mg Suppository Frequency: Daily PRN Routine Lab Work: - - CBC, BMP Q Week Code Status: Full Code - Wound(s) Right Knee Wound Type: Abrasion Right Upper Arm Wound Type: Blister Right Elbow Wound Type: Abscess Left Knee Wound Type: Abrasion Right Wrist Wound Type: Skin Tear - Suggestions for Active Care Change Position every (hours): 2 Times a day to sit in chair: 3 - Therapies Physical Therapy: Eval and Treat Occupational Therapy: Eval and Treat - Problem/Diagnosis (1) Implantable cardioverter-defibrillator (ICD) at end of battery life Status: Chronic Current Visit: No (2) Nonrheumatic aortic (valve) stenosis Status: Chronic Current Visit: No (3) Paroxysmal atrial fibrillation Status: Chronic Current Visit: No (4) Essential hypertension Status: Chronic Current Visit: No (5) Atherosclerotic heart disease of [place] coronary artery without angina pectoris Status: Chronic Comment: CABG x4- MONTERO to LAD, EPIFANIO to the Distal RCA, Right Radial Artery to the OM branch of CX, and Reverse SVG from the aorta to the Distal RCA 08/17/01 Current Visit: No (6) Aortocoronary bypass status Status: Chronic Comment: CABG x4- MONTERO to LAD, EPIFANIO to the Distal RCA, Right Radial Artery to the OM branch of CX, and Reverse SVG from the aorta to the Distal RCA 08/17/01 Current Visit: No (7) Hyperlipidemia Status: Chronic Current Visit: No (8) Carotid bruit Status: Chronic Current Visit: No (9) Long-term use of high-risk medication Status: Chronic Current Visit: No (10) Paroxysmal ventricular tachycardia Status: Chronic Current Visit: No (11) Implantable cardioverter-defibrillator (ICD) in situ Status: Chronic Current Visit: No (12) Type 2 diabetes mellitus Status: Chronic Current Visit: No (13) UTI (urinary tract infection) Status: Acute Current Visit: Yes - Allergies/Procedures Done in Hospital Allergies/Adverse Reactions: Allergies Iodine and Iodide Containing Produc Allergy (Verified 02/06/20 16:28) Shortness of breath simvastatin Adverse Reaction (Verified 02/06/20 16:28) Other Procedures: 2-D Echocardiogram - Type of Care/Length of Stay Estimated LOS: Convalescent Care Less Than 30 days Type of Care Needed: Skilled Rehab Potential: Fair Prognosis: Fair - Additional Orders/Day of Discharge H&P will serve as current which was dated: 02/06/20 Day of Discharge: 02/09/20 - Dietary and Speech Recommendations Dietitian Recommendations/Changes: Will change diet to 1800 calorie/cardiac. - Follow Up Care Primary Care Physician: Roselyn Goldberg MD [Primary Care Provider] - Please follow up with your Primary Care Physician in: 1 Week Please Follow Up With: Keanu Mercedes MD When: As scheduled for ICD replacement Please Follow Up With: Etienne Garcia MD When: 03/24/2020
[2020-02-09] MEDS: Insulin Lispro 100 UNIT/ML INSULN.PEN 10 UNIT SC (11:49)
--- NOTE | 2020-02-09 11:53 | DS.PCM_ITS ---
<Loly Boateng - Last Filed: 02/09/20 12:00> Discharge Date and Diagnosis Date of Admission: 02/06/20 Date of Discharge: 02/09/20 - Primary Discharge Diagnosis Acute Problems: Active Problems (Last Reviewed 02/06/20 @ 18:[address] Gayle Randall DO) 1. Acute complicated E. coli UTI 2. Syncope-suspect secondary to mild dehydration with underlying E. coli complicated UTI. 3. Type 2 diabetes mellitus 4. Parkinson's disease 5. CAD with history of CABG x4 6. Non-rheumatic aortic valve stenosis 7. Paroxysmal atrial fibrillation/paroxysmal ventricular tachycardia status post ICD placement 8. Hypertension 9. Hyperlipidemia 10. History of testicular cancer 11. Chronic normocytic anemia - Secondary Discharge Diagnosis Chronic Problems: Chronic Problems (Last Reviewed 02/06/20 @ 18:[address] Gayle Randall DO) Implantable cardioverter-defibrillator (ICD) at end of battery life (Chronic) Nonrheumatic aortic (valve) stenosis (Chronic) Paroxysmal atrial fibrillation (Chronic) Essential hypertension (Chronic) Atherosclerotic heart disease of [place] coronary artery without angina pectoris (Chronic) CABG x4- MONTERO to LAD, EPIFANIO to the Distal RCA, Right Radial Artery to the OM branch of CX, and Reverse SVG from the aorta to the Distal RCA 08/17/01 Aortocoronary bypass status (Chronic ~08/17/01) CABG x4- MONTERO to LAD, EPIFANIO to the Distal RCA, Right Radial Artery to the OM branch of CX, and Reverse SVG from the aorta to the Distal RCA 08/17/01 Hyperlipidemia (Chronic) Carotid bruit (Chronic) Long-term use of high-risk medication (Chronic) Paroxysmal ventricular tachycardia (Chronic) Implantable cardioverter-defibrillator (ICD) in situ (Chronic ~10/23/11) Type 2 diabetes mellitus (Chronic) Hospital Course and Treatment Imaging Results: Diagnostic Data Brain CT 02/06/20 16:43 IMPRESSION: 1. No acute findings. 2. Chronic parietal infarcts. 3. Microvascular ischemia. Atrophy. Electronically Signed: Kamille Carrasco MD at 17:40 EDT Tel , Service support , Chest X-Ray 02/06/20 17:26 IMPRESSION: No acute findings. Electronically Signed: Kamille Carrasco MD at 18:06 EDT Tel , Service support , Head/Neck CTA 02/06/20 22:55 IMPRESSION: No acute abnormalities, CTA Head and neck within normal limits for age. Electronically Signed: Maximo Panda MD at 23:41 EDT , Service support , ADDENDUM: 02/07/20 0001 IMPRESSION: No acute abnormalities, CTA Head and neck within normal limits for age. N.B. : The above information has been verbally conveyed by Maximo Panda MD to Bryn Morillo DO, on 02/06/2020 23:54:37 (ET). Electronically Signed: Maximo Panda MD at 23:41 EDT , Service support , Humerus X-Ray 02/06/20 23:30 IMPRESSION: There is no acute displaced fracture or dislocation. Osteopenia, degenerative and postsurgical changes. Electronically Signed: Jen Oglesby MD at 5:00 EDT , Service support , Renal Ultrasound 02/07/20 14:25 IMPRESSION: No suspicious sonographic findings, stable simple left renal cyst needs no specific follow-up imaging Electronically Signed: Wil Marie MD at 18:14 EDT , Service support , Dr. Allen- ID Operations: None Procedures: 2-D Echocardiogram Summary of Care Provided: The patient is a 74 year old M admitted 02/06/2020 following syncopal episode. 1. Acute complicated E. coli UTI- ID consulted during admission due to initial suspicion for bacteremia. Transitioned from IV Rocephin to oral amoxicillin. Blood cultures 1/2 grew alpha hemolytic strep, suspected contaminant. Plan for 5 days of amoxicillin at discharge per ID recommendations. Follow-up with primary care physician in 1 week. 2. Syncope-suspect secondary to mild dehydration with underlying E. coli complicated UTI. Troponin negative. EKG without ST-T changes. TSH normal. Echocardiogram demonstrates an EF of 60%, moderate aortic stenosis. Orthostatic vitals negative. 3. Type 2 diabetes [id number] with sliding scale insulin. Continue home insulin regimen. 4. Parkinson's disease-continue Sinemet. 5. CAD with history of CABG x4-follows with Dr. Garcia. Continue medical management with aspirin, statin, isosorbide, lisinopril. 6. Non-rheumatic aortic valve stenosis-stable per echo. 7. Paroxysmal atrial fibrillation/paroxysmal ventricular tachycardia status post ICD placement-continue Cardizem, aspirin. Patient is scheduled for ICD generator change 02/17/2020. He will need COVID test prior to returning to hospital for procedure. 8. Hypertension-stable, continue current regimen. 9. Hyperlipidemia-continue statin. 10. History of testicular cancer-stable. 11. Chronic normocytic anemia-stable. General: Alert, Oriented x3, Cooperative HEENT: Atraumatic, PERRLA, EOMI, Normocephalic Neck: Supple, No JVD, Negative Carotid Bruits Lungs: Clear to auscultation, Normal air movement Cardiovascular: Regular rate, Murmur Abdomen: Bowel Sounds Present, Soft, Non Tender, Non-Distended Extremities: No clubbing, No cyanosis, No edema, Capillary Refill Less than 3 Seconds Skin: No rashes, No breakdown Musculoskeletal: No Tenderness to Palpation of Joints or Extremities Neurological: Cranial nerves II-XII grossly intact, Neuro grossly intact Psych/Mental Status: Normal Affect, Appropriate Patient seen and examined prior to discharge. Physical assessment as noted above. Patient is stable for discharge with follow up recommendations as noted above. This patient was seen by CANDELARIA Sargent under the supervision of Dr. Garcia. - Physical Exam Vitals/I&O's: Vital Signs Temp Pulse Resp BP Pulse Ox 97.6 F L 75 18 130/52 H 100 02/09/20 09:37 02/09/20 09:37 02/09/20 09:37 02/09/20 09:37 02/09/20 09:37 Oxygen Delivery Method Room Air Weight: 173 lb 1.006 oz Body Mass Index (BMI) 28.8 Finger Stick Blood Glucose 166 Orthostatic Vital Signs Start: 02/07/20 06:01 Freq: q24h Status: Active Protocol: Activity Type Activity Date Activity User E-Sign Co-Sign Detail Recorded Client Recorded Date Recorded By Document 02/09/20 06:00 AE [id number] 02/09/20 06:12 AE 02/09/20 06:00 Orthostatic Vitals Standing -Blood Pressure (90/60-120/80) 132/58 H -Extremity Use Left Arm -Pulse Rate (60-100) 70 Sitting -Blood Pressure (90/60-120/80) 128/61 H -Extremity Use Left Arm -Pulse Rate (60-100) 71 Lying -Blood Pressure (90/60-120/80) 133/60 H -Extremity Use Left Arm -Pulse Rate (60-100) 70 Intake and Output for Last 24 Hours 02/07/20 02/08/20 02/09/20 23:59 23:59 23:59 Intake Total 1829.00 / 1879.00 2303.34 / 2303.34 643.33 / 643.33 Output Total 1100 / 1100 250 / 250 Balance 729.00 / 779.00 2053.34 / 2053.34 643.33 / 643.33 Microbiology Past 72 Hours 02/06/20 17:38 Blood Culture (Wb) - Right Wrist Blood Culture - Preliminary Streptococcus mutans 02/06/20 17:03 Urine, Clean Catch Urine Culture - Final Presumptive E. coli Laboratory Results 02/07/20 05:32: Vit D 1,25-Dihydroxy 36.7 02/08/20 14:30: COVID-19 ([facility]) Pending 02/08/20 15:10: COVID-19 ([facility]) Cancelled 02/08/20 16:52: POC Glucose 205 H 02/08/20 22:51: POC Glucose 156 H 02/09/20 08:19: POC Glucose 164 H Current Medications Al Hydroxide/Mg Hydroxide (Mylanta Ii) 30 ml PO Q6H PRN PRN PRN Reason: Gastric Burning Albuterol Sulfate (Ventolin Aerosols) 2.5 mg INHALATION Q2H PRN PRN PRN Reason: dyspnea, wheezing Albuterol/Ipratropium (Duoneb) 3 ml INHALATION Q6HWA.RT [facility] Last Admin: 02/09/20 07:42 Dose: 3 ml Documented by: Amoxicillin (Amoxil) 500 mg PO Q8 [facility] Last Admin: 02/09/20 05:00 Dose: 500 mg Documented by: Ascorbic Acid (Vitamin C) 500 mg PO DAILY [facility] Last Admin: 02/09/20 09:38 Dose: 500 mg Documented by: Aspirin (Aspirin) 325 mg PO DAILYCM [facility] Last Admin: 02/09/20 08:27 Dose: 325 mg Documented by: Atorvastatin Calcium (Lipitor) 20 mg PO QHS [facility] Last Admin: 02/08/20 22:53 Dose: 20 mg Documented by: Bupropion HCl (Wellbutrin Tablets) 150 mg PO BID [facility] Last Admin: 02/09/20 09:38 Dose: 150 mg Documented by: Calcium/Vitamin D (Os-Severiano 500mg + D) 1 tablet PO DAILY [facility] Last Admin: 02/09/20 09:38 Dose: 1 tablet Documented by: Carbidopa/Levodopa (Sinemet) 1.5 tablet PO Q6 [facility] Last Admin: 02/09/20 11:48 Dose: 1.5 tablet Documented by: Dextrose (D50w Syringe) 0 gm IV X1 PRN; Protocol PRN Reason: Hypoglycemia Diltiazem HCl (Cardizem Cd) 180 mg PO DAILY [facility] Last Admin: 02/09/20 09:38 Dose: 180 mg Documented by: Enoxaparin Sodium (Lovenox) 40 mg SC DAILY@0600 [facility] Last Admin: 02/09/20 05:00 Dose: 40 mg Documented by: Entacapone (Comtan) 200 mg PO Q6 [facility] Last Admin: 02/09/20 11:48 Dose: 200 mg Documented by: Ferrous Sulfate (Ferrous Sulfate) 325 mg PO TIDCM [facility] Last Admin: 02/09/20 11:48 Dose: 325 mg Documented by: Gabapentin (Neurontin) 600 mg PO BID [facility] Last Admin: 02/09/20 09:38 Dose: 600 mg Documented by: Glucagon () 1 mg IM .X1 PRN PRN Reason: Hypoglycemia Hydralazine HCl (Apresoline Iv) 5 mg IV Q30M PRN PRN Reason: to maintain BP goals Hydroxyzine HCl (Atarax Tablet) 10 mg PO TID PRN PRN PRN Reason: ANXIETY Sodium Chloride () 250 mls @ 15 mls/hr IV .[id number] PRN PRN Reason: Saline Flush Sodium Chloride () 250 mls @ 15 mls/hr IV .[id number] PRN PRN Reason: Additional IVPB Infusion Sodium Chloride () 1,000 mls @ 50 mls/hr IV .Q20H [facility] Last Admin: 02/09/20 11:05 Dose: 50 mls/hr Documented by: Insulin Glargine (Lantus (Bkc)) 26 units SC QHS [facility] Last Admin: 02/08/20 22:52 Dose: 26 u Documented by: Insulin Glargine (Lantus (Bk)) 10 units SC BREAKFAST [facility] Last Admin: 02/09/20 08:26 Dose: 10 u Documented by: Insulin Human Lispro (Humalog Kwikpen ([facility])) 10 unit SC LUNCH [facility] Last Admin: 02/09/20 11:49 Dose: 10 u Documented by: Insulin Human Lispro (Humalog Kwikpen ([facility])) 10 unit SC DINNER [facility] Last Admin: 02/08/20 16:54 Dose: 10 u Documented by: Insulin Human Lispro (Humalog Kwikpen ([facility])) 8 unit SC BREAKFAST [facility] Last Admin: 02/09/20 08:25 Dose: 8 u Documented by: Isosorbide Mononitrate (Imdur) 60 mg PO DAILY [facility] Last Admin: 02/09/20 09:38 Dose: 60 mg Documented by: Labetalol HCl (Trandate) 10 - 20 mg IV Q10M PRN PRN PRN Reason: to maintain BP goals Levothyroxine Sodium (Synthroid) 137 mcg PO DAILY@0600 [facility] Last Admin: 02/09/20 05:01 Dose: 137 mcg Documented by: Lisinopril (Zestril) 5 mg PO DAILY [facility] Last Admin: 02/09/20 09:38 Dose: 5 mg Documented by: Melatonin (Melatonin) 3 mg PO QHS PRN PRN PRN Reason: INSOMNIA Morphine Sulfate () 2 mg IV Q4H PRN PRN PRN Reason: Pain Score 6-10/10 Ondansetron HCl (Zofran) 4 mg IV Q8H PRN PRN PRN Reason: NAUSEA/VOMITING Oxycodone HCl (Oxyir) 5 mg PO Q4H PRN PRN PRN Reason: Pain Score 4-10/10 Pantoprazole Sodium (Protonix) 40 mg PO DAILY [facility] Last Admin: 02/09/20 09:38 Dose: 40 mg Documented by: Senna/Docusate Sodium (Senokot-S, Katelynn-Colace) 2 tablet PO BID PRN PRN PRN Reason: Constipation Last Admin: 02/09/20 08:27 Dose: 2 tablet Documented by: Sertraline HCl (Zoloft) 150 mg PO DAILY [facility] Last Admin: 02/09/20 09:38 Dose: 150 mg Documented by: Sodium Chloride () 10 - 40 ml IV UD PRN PRN Reason: SALINE FLUSH Last Admin: 02/07/20 09:53 Dose: 10 ml Documented by: Home Medications: Medications to take at Discharge Atorvastatin Calcium [Lipitor] 20 mg PO QHS 09/27/14 Diltiazem HCl [Diltiazem 24Hr ER (Cd)] 180 mg PO DAILY 09/27/14 Insulin Aspart [Novolog Flexpen] 5 units SC BREAKFAST 09/27/14 Insulin Aspart [Novolog Flexpen] 6 units SC LUNCH 09/27/14 Insulin Aspart [Novolog Flexpen] 7 units SC DINNER 09/27/14 Insulin Glargine [Lantus SoloStar Pen] 26 units SC QHS 09/27/14 Lisinopril [Zestril] 5 mg PO DAILY 09/27/14 buPROPion tablets [Wellbutrin tablets] 150 mg PO BID 09/27/14 hydrOXYzine tablet [Atarax tablet] 10 mg PO TID PRN PRN 09/27/14 metFORMIN HCl [Glucophage] 500 mg PO TIDCM 09/27/14 aspirin 325 mg tablet 325 mg PO QDAY 01/12/18 carbidopa 25 mg-levodopa 250 mg tablet 2 tab PO Q6H tab 01/12/18 gabapentin 600 mg tablet 600 mg PO BID 01/12/18 calcium citrate 315 mg-vitamin D3 250 unit tablet 1 tab PO DAILY 10/22/18 ferrous sulfate 325 mg (65 mg iron) tablet 325 mg PO TID tab 10/22/18 isosorbide mononitrate 60 mg tablet,extended release 24 hr 30 mg PO DAILY tab 10/22/18 levothyroxine 137 mcg tablet 137 mcg PO DAILY 10/22/18 sertraline 100 mg tablet 150 mg PO DAILY tab 10/22/18 Acetaminophen [Tylenol Tablet] 650 mg PO Q6H PRN PRN tab 11/25/18 Albuterol Aerosols [Ventolin Aerosols] 2.5 mg INHALATION Q4HWA.RT vial.neb. 11/25/18 Ipratropium/Albuterol Sulfate [Duoneb] 3 ml INHALATION Q6HWA.RT ampul.neb 11/25/18 Ascorbic Acid [Vitamin C] 500 mg PO DAILY 02/07/20 Entacapone [Comtan] 200 mg PO 02/07/20 Famotidine 20 mg PO QHS 02/07/20 Omeprazole 40 mg PO BID 02/07/20 Amoxicillin [Amoxil] 500 mg PO Q8 #15 cap 02/08/20 Insulin Glargine [Lantus SoloStar Pen] 10 units SUBCUT BREAKFAST pen 02/09/20 Following Prescrptions Were Given to Patient: Amoxicillin [Amoxil] 500 mg PO Q8 #15 cap Transmission Status: Received by [facility] [facility] Primary Care Physician: Roselyn Goldberg MD [Primary Care Provider] - Please follow up with your Primary Care Physician in: 1 Week Please Follow Up With: Keanu Mercedes MD When: As scheduled for ICD replacement Please Follow Up With: Etienne Garcia MD When: 03/24/2020 Disposition: [facility] facility Minutes spent on discharge:: 35 Patient Condition:: Stable Medical Necessity - Tobacco Use Smoking Status: Unknown if ever smoked Meaningful Use Info Meaningful Use Diagnoses (Choose all that apply): None applicable <Randall Garcia - Last Filed: 02/09/20 15:39> Discharge Date and Diagnosis - Secondary Discharge Diagnosis Chronic Problems: Chronic Problems (Last Reviewed 02/06/20 @ 18:[address] Gayle Randall DO) Implantable cardioverter-defibrillator (ICD) at end of battery life (Chronic) Nonrheumatic aortic (valve) stenosis (Chronic) Paroxysmal atrial fibrillation (Chronic) Essential hypertension (Chronic) Atherosclerotic heart disease of [place] coronary artery without angina pectoris (Chronic) CABG x4- MONTERO to LAD, EPIFANIO to the Distal RCA, Right Radial Artery to the OM branch of CX, and Reverse SVG from the aorta to the Distal RCA 08/17/01 Aortocoronary bypass status (Chronic ~08/17/01) CABG x4- MONTERO to LAD, EPIFANIO to the Distal RCA, Right Radial Artery to the OM branch of CX, and Reverse SVG from the aorta to the Distal RCA 08/17/01 Hyperlipidemia (Chronic) Carotid bruit (Chronic) Long-term use of high-risk medication (Chronic) Paroxysmal ventricular tachycardia (Chronic) Implantable cardioverter-defibrillator (ICD) in situ (Chronic ~10/23/11) Type 2 diabetes mellitus (Chronic) Hospital Course and Treatment Operations: None Procedures: 2-D Echocardiogram Summary of Care Provided: Patient seen and examined independently. Data reviewed. I agree with the above note by the nurse practitioner. The patient is a 74 year old M presents with syncopal episode. 1. Syncope: vasovagal 2. E. coli UTI 3. bacteremia: likely contaminant.[] - Physical Exam Vitals/I&O's: Vital Signs Temp Pulse Resp BP Pulse Ox 36.8 C 75 18 119/57 L 99 02/09/20 15:31 02/09/20 15:31 02/09/20 15:31 02/09/20 15:31 02/09/20 15:31 Oxygen Delivery Method Room Air Weight: 78.5 kg Body Mass Index (BMI) 28.8 Finger Stick Blood Glucose 166 Orthostatic Vital Signs Start: 02/07/20 06:01 Freq: q24h Status: Active Protocol: Activity Type Activity Date Activity User E-Sign Co-Sign Detail Recorded Client Recorded Date Recorded By Document 02/09/20 06:00 AE [id number] 02/09/20 06:12 AE 02/09/20 06:00 Orthostatic Vitals Standing -Blood Pressure (90/60-120/80) 132/58 H -Extremity Use Left Arm -Pulse Rate (60-100) 70 Sitting -Blood Pressure (90/60-120/80) 128/61 H -Extremity Use Left Arm -Pulse Rate (60-100) 71 Lying -Blood Pressure (90/60-120/80) 133/60 H -Extremity Use Left Arm -Pulse Rate (60-100) 70 Intake and Output for Last 24 Hours 0602/08/20 02/09/20 23:59 23:59 23:59 Intake Total 1829.00 / 1879.00 2303.34 / 2303.34 643.33 / 643.33 Output Total 1100 / 1100 250 / 250 Balance 729.00 / 779.00 2053.34 / 2053.34 643.33 / 643.33 General: Alert, No apparent distress HEENT: Atraumatic, Normocephalic Oral: Moist Mucosa, No Gingival or Mucosal Lesions/ Ulcerations Neck: No Nodes, Trachea Midline Lungs: Clear to auscultation, Normal air movement, No rhonchi, No wheeze Abdomen: Bowel Sounds Present Microbiology Past 72 Hours 02/06/20 16:25 Blood Culture (Wb) - Anticubital Left Blood Culture - Preliminary No growth in 48 hours. 02/06/20 17:38 Blood Culture (Wb) - Right Wrist Blood Culture - Preliminary Streptococcus mutans 02/06/20 17:03 Urine, Clean Catch Urine Culture - Final Presumptive E. coli Laboratory Results 02/07/20 05:32: Vit D 1,25-Dihydroxy 36.7 02/08/20 14:30: COVID-19 ([facility]) Pending 02/08/20 15:10: COVID-19 ([facility]) Cancelled 02/08/20 16:52: POC Glucose 205 H 02/08/20 22:51: POC Glucose 156 H 02/09/20 08:19: POC Glucose 164 H 02/09/20 11:48: POC Glucose 110 Current Medications Al Hydroxide/Mg Hydroxide (Mylanta Ii) 30 ml PO Q6H PRN PRN PRN Reason: Gastric Burning Albuterol Sulfate (Ventolin Aerosols) 2.5 mg INHALATION Q2H PRN PRN PRN Reason: dyspnea, wheezing Albuterol/Ipratropium (Duoneb) 3 ml INHALATION Q6HWA.RT [facility] Last Admin: 02/09/20 14:03 Dose: 3 ml Documented by: Amoxicillin (Amoxil) 500 mg PO Q8 [facility] Last Admin: 02/09/20 13:55 Dose: 500 mg Documented by: Ascorbic Acid (Vitamin C) 500 mg PO DAILY [facility] Last Admin: 02/09/20 09:38 Dose: 500 mg Documented by: Aspirin (Aspirin) 325 mg PO DAILYCM [facility] Last Admin: 02/09/20 08:27 Dose: 325 mg Documented by: Atorvastatin Calcium (Lipitor) 20 mg PO QHS [facility] Last Admin: 02/08/20 22:53 Dose: 20 mg Documented by: Bupropion HCl (Wellbutrin Tablets) 150 mg PO BID [facility] Last Admin: 02/09/20 09:38 Dose: 150 mg Documented by: Calcium/Vitamin D (Os-Severiano 500mg + D) 1 tablet PO DAILY [facility] Last Admin: 02/09/20 09:38 Dose: 1 tablet Documented by: Carbidopa/Levodopa (Sinemet) 1.5 tablet PO Q6 [facility] Last Admin: 02/09/20 11:48 Dose: 1.5 tablet Documented by: Dextrose (D50w Syringe) 0 gm IV X1 PRN; Protocol PRN Reason: Hypoglycemia Diltiazem HCl (Cardizem Cd) 180 mg PO DAILY [facility] Last Admin: 02/09/20 09:38 Dose: 180 mg Documented by: Enoxaparin Sodium (Lovenox) 40 mg SC DAILY@0600 [facility] Last Admin: 02/09/20 05:00 Dose: 40 mg Documented by: Entacapone (Comtan) 200 mg PO Q6 [facility] Last Admin: 02/09/20 11:48 Dose: 200 mg Documented by: Ferrous Sulfate (Ferrous Sulfate) 325 mg PO TIDCM [facility] Last Admin: 02/09/20 11:48 Dose: 325 mg Documented by: Gabapentin (Neurontin) 600 mg PO BID [facility] Last Admin: 02/09/20 09:38 Dose: 600 mg Documented by: Glucagon () 1 mg IM .X1 PRN PRN Reason: Hypoglycemia Hydralazine HCl (Apresoline Iv) 5 mg IV Q30M PRN PRN Reason: to maintain BP goals Hydroxyzine HCl (Atarax Tablet) 10 mg PO TID PRN PRN PRN Reason: ANXIETY Sodium Chloride () 250 mls @ 15 mls/hr IV .[id number] PRN PRN Reason: Saline Flush Sodium Chloride () 250 mls @ 15 mls/hr IV .[id number] PRN PRN Reason: Additional IVPB Infusion Sodium Chloride () 1,000 mls @ 50 mls/hr IV .Q20H [facility] Last Admin: 02/09/20 11:05 Dose: 50 mls/hr Documented by: Insulin Glargine (Lantus (Bk)) 26 units SC QHS [facility] Last Admin: 02/08/20 22:52 Dose: 26 u Documented by: Insulin Glargine (Lantus (Bk)) 10 units SC BREAKFAST [facility] Last Admin: 02/09/20 08:26 Dose: 10 u Documented by: Insulin Human Lispro (Humalog Kwikpen ([facility])) 10 unit SC LUNCH [facility] Last Admin: 02/09/20 11:49 Dose: 10 u Documented by: Insulin Human Lispro (Humalog Kwikpen ([facility])) 10 unit SC DINNER [facility] Last Admin: 02/08/20 16:54 Dose: 10 u Documented by: Insulin Human Lispro (Humalog Kwikpen ([facility])) 8 unit SC BREAKFAST [facility] Last Admin: 02/09/20 08:25 Dose: 8 u Documented by: Isosorbide Mononitrate (Imdur) 60 mg PO DAILY [facility] Last Admin: 02/09/20 09:38 Dose: 60 mg Documented by: Labetalol HCl (Trandate) 10 - 20 mg IV Q10M PRN PRN PRN Reason: to maintain BP goals Levothyroxine Sodium (Synthroid) 137 mcg PO DAILY@0600 [facility] Last Admin: 02/09/20 05:01 Dose: 137 mcg Documented by: Lisinopril (Zestril) 5 mg PO DAILY [facility] Last Admin: 02/09/20 09:38 Dose: 5 mg Documented by: Melatonin (Melatonin) 3 mg PO QHS PRN PRN PRN Reason: INSOMNIA Morphine Sulfate () 2 mg IV Q4H PRN PRN PRN Reason: Pain Score 6-10/10 Ondansetron HCl (Zofran) 4 mg IV Q8H PRN PRN PRN Reason: NAUSEA/VOMITING Oxycodone HCl (Oxyir) 5 mg PO Q4H PRN PRN PRN Reason: Pain Score 4-10/10 Pantoprazole Sodium (Protonix) 40 mg PO DAILY [facility] Last Admin: 02/09/20 09:38 Dose: 40 mg Documented by: Senna/Docusate Sodium (Senokot-S, Katelynn-Colace) 2 tablet PO BID PRN PRN PRN Reason: Constipation Last Admin: 02/09/20 08:27 Dose: 2 tablet Documented by: Sertraline HCl (Zoloft) 150 mg PO DAILY [facility] Last Admin: 02/09/20 09:38 Dose: 150 mg Documented by: Sodium Chloride () 10 - 40 ml IV UD PRN PRN Reason: SALINE FLUSH Last Admin: 02/07/20 09:53 Dose: 10 ml Documented by: Discharge Diet: No Restrictions Disposition: [facility] facility Minutes spent on discharge:: 35 Patient Condition:: Stable Meaningful Use Info Meaningful Use Diagnoses (Choose all that apply): None applicable Inpatient E&M: 37562 Disch Hosp
[2020-02-09 11:55] LABS: Bedside Glucose 110 mg/dL (70-110)
--- NOTE | 2020-02-09 12:20 | PHA.DC.MR ---
Pharmacy Service has performed discharge medication reconciliation for this patient. Nieves is QID. Prints out on d/c med list but is not showing up home med list. The patient's discharge medication list was reviewed for discrepancies and discrepancies were resolved. Home Medications Atorvastatin Calcium [Lipitor] 20 mg PO QHS 09/27/14 Diltiazem HCl [Diltiazem 24Hr ER (Cd)] 180 mg PO DAILY 09/27/14 Insulin Aspart [Novolog Flexpen] 5 units SC BREAKFAST 09/27/14 Insulin Aspart [Novolog Flexpen] 6 units SC LUNCH 09/27/14 Insulin Aspart [Novolog Flexpen] 7 units SC DINNER 09/27/14 Insulin Glargine [Lantus SoloStar Pen] 26 units SC QHS 09/27/14 Lisinopril [Zestril] 5 mg PO DAILY 09/27/14 buPROPion tablets [Wellbutrin tablets] 150 mg PO BID 09/27/14 hydrOXYzine tablet [Atarax tablet] 10 mg PO TID PRN PRN 09/27/14 metFORMIN HCl [Glucophage] 500 mg PO TIDCM 09/27/14 aspirin 325 mg tablet 325 mg PO QDAY 01/12/18 carbidopa 25 mg-levodopa 250 mg tablet 2 tab PO Q6H tab 01/12/18 gabapentin 600 mg tablet 600 mg PO BID 01/12/18 calcium citrate 315 mg-vitamin D3 250 unit tablet 1 tab PO DAILY 10/22/18 ferrous sulfate 325 mg (65 mg iron) tablet 325 mg PO TID tab 10/22/18 isosorbide mononitrate 60 mg tablet,extended release 24 hr 30 mg PO DAILY tab 10/22/18 levothyroxine 137 mcg tablet 137 mcg PO DAILY 10/22/18 sertraline 100 mg tablet 150 mg PO DAILY tab 10/22/18 Acetaminophen [Tylenol Tablet] 650 mg PO Q6H PRN PRN tab 11/25/18 Albuterol Aerosols [Ventolin Aerosols] 2.5 mg INHALATION Q4HWA.RT vial.neb. 11/25/18 Ipratropium/Albuterol Sulfate [Duoneb] 3 ml INHALATION Q6HWA.RT ampul.neb 11/25/18 Ascorbic Acid [Vitamin C] 500 mg PO DAILY 02/07/20 Entacapone [Comtan] 200 mg PO 02/07/20 Famotidine 20 mg PO QHS 02/07/20 Omeprazole 40 mg PO BID 02/07/20 Amoxicillin [Amoxil] 500 mg PO Q8 #15 cap 02/08/20 Insulin Glargine [Lantus SoloStar Pen] 10 units SUBCUT BREAKFAST pen 02/09/20
--- NOTE | 2020-02-09 15:44 | CASEMGMT ---
Still waiting on in house COVID test results. JUNE called [facility] and updated Ana in admissions. JUNE told her we are still waiting on the test results and once we get them we will fax them and call with the results. JUNE already faxed the orders. JUNE completed convalescent on [facility]. Patient's daughter will transport him via private vehicle. JUNE updated secretary to the vice president and left a green sheet with instructions. Plan: d/c to [facility] under skilled level of care on a convalescent stay. Patient's daughter transported him via private vehicle. Augusta DESIR MSW
[2020-02-09 16:31] LABS: Bedside Glucose 56 mg/dL (70-110)
[2020-02-09 17:10] LABS: Bedside Glucose 76 mg/dL (70-110)
--- NOTE | 2020-02-09 20:40 | NURSING ---
DTR SANAZ NOTIFIED THAT PT'S COVID TEST RESULTED AND WAS NEGATIVE. SHE WILL BE HERE TO PICK HIM UP BETWEEN 0830 & 0900 FOR TRANSPORT TO [facility].
[2020-02-09] MEDS: Atorvastatin Calcium 20 MG Tablet PO (22:12)
[2020-02-09 22:26] LABS: Bedside Glucose 165 mg/dL (70-110)
[2020-02-10] MEDS: Carbidopa/Levodopa 25/250 Tablet PO ×2 (00:41→06:42)
[2020-02-10 02:15] VITALS: BP 138/75; PULSE 69; RESP 18; TEMP 36.4; O2SAT 97
[2020-02-10 03:07] VITALS: BMI 28.8
[2020-02-10] MEDS: Enoxaparin 40 MG/0.4 ML Syringe SC (06:42)
[2020-02-10] MEDS: Levothyroxine 137 MCG Tablet PO (06:47)
[2020-02-10 06:55] LABS: Bedside Glucose 115 mg/dL (70-110)
[2020-02-10 07:00] VITALS: PULSE 70
[2020-02-10] MEDS: 0.9% Normal Saline 1,000 ML 50 ML IV ×2 (07:00)
[2020-02-10] MEDS: AMOXICILLIN 500 MG CAPSULE PO (07:00)
[2020-02-10 07:26] VITALS: PULSE 70; RESP 16; O2SAT 95
[2020-02-10] MEDS: Ipratropium/Albuterol Sulfate 3 ML AMPUL.NEB INHALATION (07:26)
[2020-02-10 07:52] VITALS: BP 136/63; PULSE 70; RESP 18; TEMP 36.4; O2SAT 96
[2020-02-10] MEDS: Ferrous Sulfate 325 MG Tablet PO (07:57)
[2020-02-10] MEDS: Aspirin 325 MG Tablet PO (07:57)
--- NOTE | 2020-02-10 08:26 | NURSING ---
Called report to Ester MANZANO at [facility]
== END 2020-02-10 08:30 | disposition skilled nursing facility (03) | DRG 690 ==
LOC: ED 17:55 → PCU 18:24
PROVIDERS: Family Medicine; Internal Medicine; Admitting Provider Internal Medicine; Emergency Provider Emergency Medicine; PCP Internal Medicine; Referring Provider Internal Medicine
DX: N39.0 Urinary tract infection, site not specified (principal); I47.2 Ventricular tachycardia; N17.9 Acute kidney failure, unspecified; R78.81 Bacteremia; B96.20 Unspecified Escherichia coli [E. coli] as the cause of diseases classified elsewhere; E86.0 Dehydration; I95.1 Orthostatic hypotension; E87.5 Hyperkalemia; I48.0 Paroxysmal atrial fibrillation; G20 Parkinson's disease; F03.90 Unspecified dementia, unspecified severity, without behavioral disturbance, psychotic disturbance, mood disturbance, and anxiety; I35.0 Nonrheumatic aortic (valve) stenosis; D64.9 Anemia, unspecified; I25.10 Atherosclerotic heart disease of native coronary artery without angina pectoris; E11.9 Type 2 diabetes mellitus without complications; I10 Essential (primary) hypertension; E78.5 Hyperlipidemia, unspecified; S00.11XA Contusion of right eyelid and periocular area, initial encounter; S00.33XA Contusion of nose, initial encounter; W19.XXXA Unspecified fall, initial encounter; Y93.9 Activity, unspecified; Y92.008 Other place in unspecified non-institutional (private) residence as the place of occurrence of the external cause; Y99.9 Unspecified external cause status; Z79.82 Long term (current) use of aspirin; Z79.4 Long term (current) use of insulin; Z79.890 Hormone replacement therapy; Z79.899 Other long term (current) drug therapy; Z85.47 Personal history of malignant neoplasm of testis; Z87.891 Personal history of nicotine dependence; Z95.1 Presence of aortocoronary bypass graft; Z95.810 Presence of automatic (implantable) cardiac defibrillator
CPT/HCPCS: 36415; 70450; 70496; 70498; 71045; 73060; 76770; 80048; 80053; 80061; 81001; 82248; 82550; 82607; 82652; 82746; 82962; 83735; 84100; 84443; 84484; 85025; 87040; 87077; 87086; 87088; 87186; 87635; 92507; 92523; 92526; 92610; 93005; 93306; 94640; 97110; 97116; 97162; 97166; 97530; 97535; 97802; 99251; 99285; G2023; J7030; Q9957; Q9967; A4216; C8929; G0463; J0696; U0003

== ENCOUNTER 2020-02-17 10:02 | Day surgery (SDC) | payer MEDICARE, SELFPAY ==
[2019-12-08 10:28] VITALS: BMI 29.5
--- NOTE | 2020-02-15 09:23 | HP.PCM_ITS ---
History and Physical Date of Admission: 02/17/20 EVELIN VITAL, is a 74 M who presents to the cathode maker today for a dual-chamber ICD generator change. From a cardiac standpoint he states he is doing well at this time. He denies any ongoing symptoms of classic angina pectoris and he has not had any overt issues of CHF or pulmonary edema. There has been no near syncope or syncope and his device is not discharged. He has not required additional diagnostic studies or therapeutic intervention since his last visit. He states his main concern overall continues to be battling his Parkinson's disorder. 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 Interrogation showed 1 NSVT episode and no mode switch episodes since 02/09/2019. Stored electrograms for NSVT episode on 09/14/2019 shows MVT at 142 bpm AVD, x16 beats. Ventricular pacing 50%. Atrial paced 72%. Patient was evaluated at [facility] in January 2020 for syncopal episode. He was found on the ground near his driveway and EMS was called. He was treated for urinary tract infection. His syncopal episode was thought to be secondary to mild dehydration and underlying urinary tract infection. His troponin was negative. His EKG showed no ST or T wave changes. He underwent an echocardiogram that showed an ejection fraction of 60% and moderate aortic valve stenosis. He was ultimately transferred to nursing facility. He underwent COVID?19 testing on 02/08/2020 and was considered be negative. He underwent COVID-19 at [facility] on and was considered to be He will proceed with generator generator change with Dr. Mercedes today. 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: No Accompanied by: Allergies Iodine and Iodide Containing Produc Allergy (Verified 02/04/19 11:37) Shortness of breath simvastatin Adverse Reaction (Verified 02/04/19 11:37) Other Medications See EMR [facility] Medical History Nonrheumatic aortic (valve) stenosis (Chronic) Paroxysmal atrial fibrillation (Chronic) Essential hypertension (Chronic) Atherosclerotic heart disease of [place] coronary artery without angina pectoris (Chronic) Hyperlipidemia (Chronic) Carotid bruit (Acute) Long-term use of high-risk medication (Chronic) Paroxysmal ventricular tachycardia (Acute) Type 2 diabetes mellitus (Chronic) Testicular carcinoma (Acute) Parkinsons disease (Chronic) Atrial flutter (Inactive) Hypertension (Inactive) Surgical History Aortocoronary bypass status (Chronic ~08/17/01) Implantable cardioverter-defibrillator (ICD) in situ (Chronic ~10/23/11) History of appendectomy (Resolved) History of cardiac radiofrequency ablation (Resolved ~06/2003) History of orchiectomy, unilateral (Resolved) History of tonsillectomy (Resolved) Family History Father CAD (coronary artery disease) Myocardial infarction Mother CAD (coronary artery disease) Sister Diabetes Sister CAD (coronary artery disease) Hx of CABG Social History Smoking Status: Former smoker how long ago did patient quit smokin years ago alcohol intake: never caffeine: No ROS Const Const: Negative for fatigue, weakness, frequent falls, excessive sweating, weight gain or weight loss Eyes Eyes: Negative for transient loss of vision, blurry vision or change in vision ENT ENT: Positive for balance problems (ambulates with walker/cane); negative for dizziness Cardio Chest Pain: No Palpitations: No Edema: None Muscle aches with walking: None Resp Respiratory: Negative for SOB with activity or SOB at rest GI GI: Negative vomiting or vomiting blood/hematemesis : Negative for hematuria Musc Musc: Positive for balance problems (ambulates with walker/cane); negative for muscle aches/ myalgia, muscle weakness or joint pain Skin Skin: Negative non-healing lesions or rash Neuro Neuro: Negative for dizziness, lightheadedness, orthostatic symptoms, frequent falls, weakness or blurry vision Orlin Hematologic/Lymphatic: Negative for easy bleeding Endo Endo: Negative for fatigue or excessive sweating Psych Psych: Negative for anxiety or depression Allergy Allergy/Immunology: Negative for hives, Negative for rash Cardiology Exam Const Appearance: cooperative, comfortable, no acute distress, well developed, well groomed and other (tremors - bilateral upper extremities / examined in the wheelchair) Nutritional Appearance: overweight Orientation: alert, awake and oriented x3 Head Head: normal to inspection, normocephalic and atraumatic Ears: hearing grossly normal bilaterally Nose: external nose normal Face and Sinus: face symmetric Mouth: oral mucosae normal Teeth and gingiva: fair dentition Eyes General: appearance normal, both eyes and all related structures Eyelids: eyelids normal Conjunctivae: conjunctivae normal Pupils: PERRL EOM: EOM intact bilaterally Neck Neck: normal visual inspection, full ROM and no lymphadenopathy Carotids: normal carotid upstroke Chest Chest inspection: normal inspection of the chest and symmetric chest movement Auscultation: Bilateral: Clear to Auscultation Cardio Palpation: normal PMI Rate: regular rate Rhythm: regular rhythm Heart sounds: S1 normal and S2 normal Murmur: Grade 2/6, mid systolic, LLSB, LVOT and sternal notch GI GI: normal to inspection, soft, no hepatosplenomegaly and bowel sounds present Neuro General: alert, awake and oriented x3 Motor: tremor (bilateral upper extremities) Skin Skin: no rashes or lesions noted Extremities Pulses: Normal: Right Radial Pulse, Left Radial Pulse Lower Extremity Edema: None: Bilateral Psych Psychological: normal affect Assessment & Plan 1. Atherosclerosis of [place] coronary artery of [place] heart without angina pectoris I25.10 CABG x4- MONTERO to LAD, EPIFANIO to the Distal RCA, Right Radial Artery to the OM branch of CX, and Reverse SVG from the aorta to the Distal RCA 08/17/01 Plan At the present time he appears to be doing well overall. He will continue medical management and follow-up. 2. Postsurgical aortocoronary bypass status Z95.1 CABG x4- MONTERO to LAD, EPIFANIO to the Distal RCA, Right Radial Artery to the OM branch of CX, and Reverse SVG from the aorta to the Distal RCA 08/17/01 Plan Again he appears to be doing well with his history of underlying coronary vascular disease. He will continue medical therapy and follow-up. 3. Nonrheumatic aortic (valve) stenosis I35.0 Plan He does have a history of aortic valve disorder. He continues with his examination findings of his cardiac murmur. His most recent noninvasive study is as noted above. He appears without any acute symptoms or adverse events. He will continue to be followed. 4. Paroxysmal atrial fibrillation I48.0 Plan He does have a history of underlying atrial dysrhythmias. His 11 electrocardiogram on 02/06/2020 showed sinus rhythm with first-degree AV block and underlying bifascicular block. He has been on medical management. This has included his antiplatelet therapy. He has not been on anticoagulant therapy secondary to concerns of his Parkinson's disorder, falling episodes, etc. He continues on rate limiting therapy. 5. Paroxysmal ventricular tachycardia I47.2 Plan He does have a history of underlying ventricular dysrhythmias as well. He does have medical management. He does have an ICD in place. 6. Automatic implantable cardiac defibrillator in situ Z95.810 Plan Again he has an ICD in place. He will proceed with generator change. 7. Hyperlipidemia, unspecified hyperlipidemia type E78.5 Plan He does follow with the [facility]. A copy of his lipid labs would be appreciated for continuity of care purposes. 8. Essential hypertension I10 Plan He has blood pressure appears to be under good control at this time. He will continue medical management. Plan Detail Additional Comments Thank you for allowing me to participate in the care of your patient. Please don't hesitate to call if any issues arise. This note was generated using a voice recognition system and there may be incorrect words, spelling or punctuation that were not noted when reviewing the office note prior to saving. Supplemental Info Supplemental Information Echocardiogram from 02/07/2020: Interpretation Summary Normal LV size. The estimated ejection fraction is 60 %. Moderate focal aortic valve calcification. Moderate aortic stenosis. Contrast injection was performed. The study was technically difficult. The study was technically limited. Echocardiogram in 2014 demonstrates segmental dysfunction with a preserved ejection fraction of 65%, mild concentric LVH, left atrium mildly enlarged, mild diffuse mitral valve thickening, trivial mitral valve insufficiency. Mild tricuspid valve insufficiency, mild aortic stenosis, mild aortic valve insufficiency, RVSP 30 mmHg. Pharmacologic nuclear stress test in 2011 was negative for ischemia Procedure Criteria Procedure Type: Elective Procedure Essential: Yes Criteria Statement: On 11/16/2019 the [place] Department of Health ([facility]) Public Order signed by [facility] Director Reyna Russell M.D., regarding the Management of Non-Essential Surgeries and Procedures for the purpose of preserving Personal Protective Equipment (PPE) and critical hospital capacity and resources within [place] went into effect as of 11/17/2019 at 5:00PM. According to the [facility] Public Order: This action will remain in full force and effect until the State of Emergency declared by the Governor no longer exists or the Director of the [facility] rescinds or modifies this Order. This [facility] order stated all non-essential or elective surgeries and procedures that utilize PPE should be delayed unless there is undue risk to the current or future health of a patient. After reviewing the aforementioned [facility] Public Order and the patient's clinical case, I have determined that the scheduled procedure meets the criteria to go forward. Risk to Patient if Procedure Delayed: Risk of rapidly worsening to severe symptoms if delayed COVID Risk Discussion: The surgeon/proceduralist and patient have discussed in detail the risk of e xposure to and/or potential harm posed by the COVID-19 virus with having a surgery/procedure at this time versus the risk of delaying the surgery/procedure. It is not possible to know either the risk of delaying the surgery or procedure or chance of getting an infection with perfect accuracy, but a joint decision was made between the patient and the surgeon/proceduralist to proceed at this time with the scheduled surgery/procedure as indicated on the consent form.
[2020-02-16 10:04] VITALS: BMI 29.5
--- NOTE | 2020-02-17 11:12 | OP.PCM_ITS ---
Report of Operation Date of Procedure: 02/17/20 Description of Procedure: Diagnosis: Isch Cardiomyopathy with NYHA Class II. ICD for secondary prevention. Device generator replacement for normal battery depletion Preoperative diagnosis is device at end of life for normal battery depletion. Postoperative diagnosis same as above. After informed consent and IV antibiotics the patient was brought to the [facility] catheterization laboratory and the skin over the device was prepped and draped in the usual sterile manner. Intermittent boluses of Versed, and fentanyl were used for sedation and analgesia as well as 1% subcutaneous lidocaine. An incision was made over the pre-existing device. Using blunt and Bovie dissection the pocket was opened and the device was removed. Careful attention was paid not to injure the pre-existing leads. The leads were removed from the device header and they were interrogated. There is normal lead function. Hemostasis was obtained. The pocket was flushed with antibiotic solution. The sponge and needle count were correct. The new device was brought to the field. The leads were placed in the appropriate position in the header and secured by the set screw. The leads and the device were then placed in the pocket. The pocket was closed with a deep layer of running 2-0 Vicryl, a superficial layer of running 4-0 Vicryl, skin with Steri-Strips which were covered with a rolled 4 x 4 and Tegaderm. Patient left the room with the device programmed to proper parameters and there were no complications. The device is a dual chamber chamber [place] [employer] generator. All lead parameters were tested and found to be functionally normal. Lead and device serial and model numbers are available in the chart documents provided by the device company kiosk sales representative procedure summary.
[2020-02-17 14:06] LABS: Bedside Glucose 104 mg/dL (70-110)
[2020-02-19 09:40] LABS: Bedside Glucose 70 mg/dL (70-110)
[2020-02-19 09:40] LABS: Bedside Glucose 35 mg/dL (70-110)
== END 2020-02-17 14:00 | disposition home or self-care (01) ==
LOC: CLSP 10:03
PROVIDERS: PCP Internal Medicine; Referring Provider Internal Medicine Cardiovascular Disease; Visit Provider Internal Medicine Cardiovascular Disease
DX: Z45.02 Encounter for adjustment and management of automatic implantable cardiac defibrillator (principal); I25.10 Atherosclerotic heart disease of native coronary artery without angina pectoris; I10 Essential (primary) hypertension; I35.0 Nonrheumatic aortic (valve) stenosis; I47.2 Ventricular tachycardia; I48.0 Paroxysmal atrial fibrillation; G20 Parkinson's disease; E78.5 Hyperlipidemia, unspecified; E11.9 Type 2 diabetes mellitus without complications; Z95.1 Presence of aortocoronary bypass graft; Z79.4 Long term (current) use of insulin; Z79.82 Long term (current) use of aspirin; Z79.84 Long term (current) use of oral hypoglycemic drugs; Z79.899 Other long term (current) drug therapy; Z87.891 Personal history of nicotine dependence
CPT/HCPCS: 33263; 82962; 93641; 99152; 99153; J7040; J7050

== ENCOUNTER 2020-03-05 13:45 | Emergency (ER) | payer MEDICARE, SELFPAY ==
[2020-02-16 10:04] VITALS: BMI 29.5
[2020-03-05 13:46] VITALS: BP 113/50; PULSE 76; RESP 13; TEMP 36.9; O2SAT 95; BMI 27.3
--- NOTE | 2020-03-05 14:03 | CT_ITS ---
STUDY: CT BRAIN WITHOUT CONTRAST REASON FOR EXAM: Male, 74 years old. Fall confusion RADIATION DOSAGE (If Supplied By Facility): CTDIvol = ( 44.99 ) mGy, DLP = ( 829.85 ) mGycm TECHNIQUE: Transaxial CT imaging of the brain was performed without administration of intravenous contrast material. Individualized dose optimization techniques were used for this CT. COMPARISON: February 06, 2020 FINDINGS: There is no acute intracranial hemorrhage, extra-axial fluid collections, hydrocephalus or herniation. There is a moderate extent remote left temporoparietal cortical infarct and small right parietal subcortical white matter infarct. The skull is intact. Appearance is stable since prior. CT/Brain/Head without Contrast IMPRESSION: 1. No acute findings or change since prior. 2. No acute intracranial injury. 3. Remote left temporoparietal infarct. Electronically Signed: Lor Murcia, at 14:57 EDT Tel , Service support ,
--- NOTE | 2020-03-05 14:04 | EKG12_ITS ---
Test Reason : Blood Pressure : / mmHG Vent. Rate : 070 BPM Atrial Rate : 065 BPM P-R Int : 362 ms QRS Dur : 124 ms QT Int : 448 ms P-R-T Axes : 000 -43 030 degrees QTc Int : 483 ms Probable atrial fibrillation Left axis deviation Possible Lateral infarct , age undetermined Abnormal ECG Confirmed by SOO CEVALLOS, KENDRA ([id number]), news video editor JESSICA OLIVER ([id number]) on 03/07/2020 11:00:56 AM Referred By: LIN Confirmed By:KENDRA VANN MD
--- NOTE | 2020-03-05 14:05 | ED.DCSUM_ITS ---
History of Present Illness Chief Complaint: Fall Informant: Patient Onset: Today Narrative: Presents with confusion after fall. Patient states that he was trying to fix and lift on his front porch. He gave way suddenly and he lost his balance falling to his right side. He does report having frequent falls secondary to balance problems. EMS noted that he was only A&O x1. On arrival here he is A&O x3. That being said, patient does not remember being in the hospital recently. When I told him that it looks like he had passed out and was found lying outside next to his car he then tells me that he had fallen in his home and hit his fireplace. Patient denies any injury at this time. - Past Medical History (1) Aortocoronary bypass status Status: Chronic Comment: CABG x4- MONTERO to LAD, EPIFANIO to the Distal RCA, Right Radial Artery to the OM branch of CX, and Reverse SVG from the aorta to the Distal RCA 08/17/01 (2) Atherosclerotic heart disease of [place] coronary artery without angina pectoris Status: Chronic Comment: CABG x4- MONTERO to LAD, EPIFANIO to the Distal RCA, Right Radial Artery to the OM branch of CX, and Reverse SVG from the aorta to the Distal RCA 08/17/01 (3) Essential hypertension Status: Chronic (4) Hyperlipidemia Status: Chronic (5) Implantable cardioverter-defibrillator (ICD) in situ Status: Chronic (6) Nonrheumatic aortic (valve) stenosis Status: Chronic (7) Paroxysmal atrial fibrillation Status: Chronic (8) Paroxysmal ventricular tachycardia Status: Chronic (9) Type 2 diabetes mellitus Status: Chronic Past Medical History - Allergies and Home Meds Allergies/Adverse Reactions: Allergies Iodine and Iodide Containing Produc Allergy (Verified 02/06/20 16:28) Shortness of breath simvastatin Adverse Reaction (Verified 02/06/20 16:28) Other Primary Care Physician: Roselyn Goldberg MD [Primary Care Provider] - 3-5 Days if not improving Prior records reviewed: Yes Lives: Alone Smoking Status: Former smoker - Family History Maternal Family History: Family History (Last Reviewed 02/06/20 @ 18:[address] Gayle Randall, DO) Father CAD (coronary artery disease) Myocardial infarction Mother CAD (coronary artery disease) Sister Diabetes Sister CAD (coronary artery disease) Hx of CABG Family History: Reports: No pertinent history Review of Systems General: Denies: Chills, Fever Eyes: Denies: Visual changes - bilaterally ENT: Denies: Bilateral ear pain Cardiovascular: Denies: Chest pain Respiratory: Denies: Dyspnea, Cough Gastrointestinal: Denies: Abdominal pain, Nausea, Vomiting, Diarrhea Musculoskeletal: Denies: Extremity Pain Skin: Reports: Abrasions Neurological: Denies: Headache Hematologic: Denies: Easy bruising, Easy bleeding Allergy: Denies: Uticaria Physical Exam Vital Signs/Narrative: Vital Signs Temp Pulse Resp BP Pulse Ox 03/05/20 13:46 98.4 F 76 13 113/50 L 95 Inital Vital Signs reviewed: Yes General: Well nourished, Well developed Head: Normocephalic, Atraumatic ENT: Moist mucous membranes Neck: Supple Cardiovascular: Regular rate, Regular rhythm, Murmur Respiratory: No distress, CTA bilaterally, Diminished Abdomen: Nontender Extremities: - - 2 x 3 cm skin tear to the right forearm. No bony tenderness. Full range of motion. Skin: - - Skin tear to right forearm is noted. Patient has multiple bruises over his chest and abdomen in various stages of healing. Neurological: Alert, Oriented x3, - - No focal neurologic deficits. Psychological: Normal affect Diagnostic/Tx/Re-eval Impressions Brain CT 03/05/20 14:03 IMPRESSION: 1. No acute findings or change since prior. 2. No acute intracranial injury. 3. Remote left temporoparietal infarct. Electronically Signed: Lor Murcia at 14:57 EDT Tel , Service support , Chest X-Ray 03/05/20 14:31 IMPRESSION: No acute cardio respiratory disease. Prior sternotomy. Electronically Signed: Lor Murcia at 14:51 EDT Tel , Service support , 03/05/20 14:03 Brain/Head without Contrast [CT] Stat 03/05/20 14:31 Chest 1 View (Portable) [RAD] Stat Laboratory Results 03/05/20 03/05/20 03/05/20 13:55 13:55 14:25 WBC 7.7 RBC 3.05 L Hgb 8.0 L Hct 27.0 L MCV 88.5 MCH 26.2 L MCHC 29.6 L RDW Std Deviation 61.7 H RDW Coeff of Mat 19.1 H Plt Count 501 H MPV 8.3 Immature Gran % (Auto) 0.800 Neut % (Auto) 80.9 H Lymph % (Auto) 7.4 L [place] % (Auto) 9.4 Eos % (Auto) 1.2 Baso % (Auto) 0.3 Absolute Neuts (auto) 6.2 Absolute Lymphs (auto) 0.57 L Nucleated RBC % 0 Platelet Estimate ADEQUATE Hypochromasia 2+ Anisocytosis 1+ Microcytosis RARE Ovalocytes 1+ Schistocytes RARE Sodium 137 Potassium 4.8 Chloride 107 Carbon Dioxide 22.0 Anion Gap 8 BUN 17 Creatinine 1.26 Estim Creat Clear Calc 47.36 Est GFR (MDRD) Af Amer 72 Est GFR (MDRD) Non-Af 59 L BUN/Creatinine Ratio 13.5 Glucose 74 Lactic Acid 2.2 H* Calcium 8.8 Troponin I < 0.015 Urine Color Urine Clarity Urine pH Ur Specific Davey Urine Protein Urine Glucose (UA) Urine Ketones Urine Occult Blood Urine Nitrite Urine Bilirubin Urine Urobilinogen Ur Leukocyte Esterase Urine RBC Urine WBC Ur Squamous Epith Cells Urine Bacteria Urine Mucus 03/05/20 15:05 WBC RBC Hgb Hct MCV MCH MCHC RDW Std Deviation RDW Coeff of Mat Plt Count MPV Immature Gran % (Auto) Neut % (Auto) Lymph % (Auto) [place] % (Auto) Eos % (Auto) Baso % (Auto) Absolute Neuts (auto) Absolute Lymphs (auto) Nucleated RBC % Platelet Estimate Hypochromasia Anisocytosis Microcytosis Ovalocytes Schistocytes Sodium Potassium Chloride Carbon Dioxide Anion Gap BUN Creatinine Estim Creat Clear Calc Est GFR (MDRD) Af Amer Est GFR (MDRD) Non-Af BUN/Creatinine Ratio Glucose Lactic Acid Calcium Troponin I Urine Color Yellow Urine Clarity Sl. Cloudy Urine pH 5.0 Ur Specific Davey 1.020 Urine Protein 30 H Urine Glucose (UA) Normal Urine Ketones 15 H Urine Occult Blood 10 H Urine Nitrite Negative Urine Bilirubin 1 H Urine Urobilinogen Normal Ur Leukocyte Esterase 25 H Urine RBC 0-5 SEEN Urine WBC 0-5 SEEN Ur Squamous Epith Cells 0-5 SEEN Urine Bacteria 0 SEEN Urine Mucus 0 SEEN - EKG Initial EKG Interpretation: - - Atrial paced rhythm at [address] change. - Medical Decision Making Patient was given mild IV fluids here. He was recently admitted for UTI but urine is clear at this time. Hemoglobin is stable when compared to prior values. Imaging studies are unremarkable. Patient does state that he has problems with his balance and does fall frequently. He has a walker that he uses as well as a power chair. He does feel safe at home. Patient was able to get up and ambulate with a walker here. He appears to be at his baseline. He will call his daughter for a ride home. He is given return instructions. ED Disposition - Plan for ED Patient: Disposition: Home or Assisted Living Diagnosis: Fall Instructions: ED Fall Dizziness Weakn Balance Referrals: Roselyn Goldberg MD [Primary Care Provider] - 3-5 Days if not improving
[2020-03-05 14:27] LABS: Absolute Lymphocyte Count 0.57 X10^3/uL (0.83-4.51); Absolute Neutrophil Count 6.2 X10^3/uL (2.0-7.7); Basophil# 0.02 X10^3/uL; Basophil% 0.3 % (0-1); Differential Indicated SCAN CRITERIA MET; Eosinophil# 0.09 X10^3/uL; Eosinophils% 1.2 % (0-5); Lymphocyte # 0.57 X10^3/ul (4.0); Lymphocyte % 7.4 % (19-41); Mean Corp Hgb Conc 29.6 g/dL (32-36); Mean Corpuscular Hgb 26.2 pg (27.0-32.0); Mean Corpuscular Volume 88.5 fL (80-94); Mean Platelet Vol. 8.3 fl (6.2-12.0); Monocyte# 0.72 X10^3/uL; Monocyte% 9.4 % (0-10); NRBC Flagged by Analyzer 0 % (0-5); Neutrophil # 6.23 X10^3/uL (2.7-7.7); Neutrophil % 80.9 % (47-70); POSITIVE DIFFERENTIAL YES; Platelet Count 501 K/mm3 (150-450); RBC Distribution Width CV 19.1 % (11.6-14.6); RBC Distribution Width SD 61.7 fl (35.1-43.9); Red Blood Count 3.05 M/mm3 (4.6-6.2); White Blood Count 7.7 K/mm3 (4.4-11.0)
--- NOTE | 2020-03-05 14:31 | RAD_ITS ---
STUDY: X-RAY CHEST REASON FOR EXAM: Male, 74 years old. FALL. TECHNIQUE: Frontal view of the chest COMPARISON: February 06, 2020 FINDINGS: Pacemaker is present in the right upper chest with leads terminating in the right atrium and right ventricle. Sternotomy wires are present. There is no pneumothorax, pulmonary edema, pleural effusions or cardiomegaly. Lungs are clear. Osseous structures are intact with prior surgical repair of left humeral head rotator cuff. Appearance is stable since prior.. RAD/Chest 1 View (Portable) IMPRESSION: No acute cardio respiratory disease. Prior sternotomy. Electronically Signed: Lor Murcia, at 14:51 EDT Tel , Service support ,
[2020-03-05 14:39] LABS: Anion Gap 8 (5-15); BUN 17 mg/dL (7-18); BUN/Creat Ratio 13.5 RATIO (10-20); Calcium,Total 8.8 mg/dL (8.5-10.1); Chloride 107 mmol/L (98-107); Creatinine, Serum 1.26 mg/dL (0.70-1.30); EST Glomerular Filtration Rate 59 mL/min (>60); Est Glom Filt Rate - Afr Amer 72 mL/min (>60); Estimated Creatinine Clearance 47.36 ml/min; Glucose 74 mg/dL (74-106); Potassium 4.8 mmol/L (3.5-5.1); Sodium Level 137 mmol/L (136-145)
[2020-03-05 14:50] LABS: Anisocytosis 1+; Hypochromasia 2+; Microcytosis RARE; Ovalocyte 1+; Platelet Estimate ADEQUATE (ADEQ); Schistocytes RARE
[2020-03-05 14:51] VITALS: BP 112/54; PULSE 70; RESP 18; TEMP 36.9; O2SAT 95
[2020-03-05 15:02] LABS: Lactic Acid 2.2 mmol/L (0.4-1.9)
[2020-03-05] MEDS: 0.9% Normal Saline 1,000 ML 150 ML IV (15:18)
[2020-03-05 15:19] LABS: Bacteria 0 SEEN /hpf (None Seen); Mucous, Urine 0 SEEN /hpf (<or=2+)
[2020-03-05 15:22] LABS: Color, Urine Yellow (Yellow); Glucose, Dipstick Normal (Normal); Ketone-Dipstick 15 mg/dl (Negative); Leukocyte Esterase-Dipstick 25 /ul (Negative); Nitrite-Dipstick Negative (Negative); Occult Blood-Urine 10 /ul (Negative); Protein-Dipstick 30 mg/dl (Negative); Urine Clarity Sl. Cloudy (Clear); Urine Urobilinogen Normal (Normal)
[2020-03-05 15:24] LABS: Urine Bilirubin Dipstick 1 mg/dL (Negative)
[2020-03-05 15:31] LABS: Red Blood Cells-Urine 0-5 SEEN /hpf (0-5); Squamous Epithelial Cells - UA 0-5 SEEN /hpf (0-5); White Blood Cells 0-5 SEEN /hpf (0-5)
[2020-03-05 15:45] VITALS: BP 108/53; PULSE 77; RESP 18
[2020-03-05 15:50] VITALS: BP 98/64; PULSE 70; RESP 18; O2SAT 93
[2020-03-05 17:25] VITALS: BP 123/74
[2020-03-05 18:26] LABS: Reflex Lactate? Y
== END 2020-03-05 17:26 | disposition home or self-care (01) ==
PROVIDERS: Emergency Provider Emergency Medicine; PCP Internal Medicine
DX: S51.811A Laceration without foreign body of right forearm, initial encounter (principal); S20.212A Contusion of left front wall of thorax, initial encounter; S20.211A Contusion of right front wall of thorax, initial encounter; S30.1XXA Contusion of abdominal wall, initial encounter; W17.89XA Other fall from one level to another, initial encounter; Z91.81 History of falling; Y93.9 Activity, unspecified; Y92.9 Unspecified place or not applicable; I25.10 Atherosclerotic heart disease of native coronary artery without angina pectoris; I10 Essential (primary) hypertension; E78.5 Hyperlipidemia, unspecified; I35.0 Nonrheumatic aortic (valve) stenosis; I48.0 Paroxysmal atrial fibrillation; E11.9 Type 2 diabetes mellitus without complications; Z87.440 Personal history of urinary (tract) infections; Z95.1 Presence of aortocoronary bypass graft; Z95.810 Presence of automatic (implantable) cardiac defibrillator; Z79.4 Long term (current) use of insulin; Z79.82 Long term (current) use of aspirin; Z79.84 Long term (current) use of oral hypoglycemic drugs; Z79.899 Other long term (current) drug therapy; Z87.891 Personal history of nicotine dependence
CPT/HCPCS: 70450; 71045; 80048; 81001; 83605; 84484; 85025; 93005; 96360; 96361; 99285; J7030; J7040; A4216

== ENCOUNTER 2020-03-06 02:44 | Observation (INO) | payer OTHER, MEDICARE, SELFPAY ==
[2020-03-05 13:46] VITALS: BMI 27.3
[2020-03-06] VITALS (10 sets, daily range): BP systolic 138–161; BP diastolic 49–87; PULSE 76–88; RESP 16–18; TEMP 36.3–36.6; O2SAT 92–99; BMI 28.0; BMI 28.1; BMI 28.3
--- NOTE | 2020-03-06 03:00 | ED.VISSUMM ---
- ER Visit Summary Date of Service: 03/06/20 Chief Complaint: Fall History of Present Illness: The patient is a 74 M extensive past medical history of chronic anemia, CAD, diabetes, hypertension, pacemaker defibrillator for prior A. fib and V. tach and prior CABG. Patient was actually seen and evaluated in the emergency department within the last 12 to 24 hours. At that time he had extensive work-up including labs which showed his chronic anemia he also had a chest x-ray and CAT scan of his brain showing no acute abnormalities. States he was at home and he fell again and it was laying in the yard. He does have a med alert eventually decided to push that paramedics brought him in. Unknown how long he laid there. He denies any complaints. Denies any injuries. Denies any recent illness. Physical Examination: Older male no acute distress vital signs are stable. He is afebrile. He does not look septic or toxic. His pulse ox is 99% on room air. He does not look septic or toxic. H EENT exam pupils are round reactive light. There is no signs of trauma to his face or scalp. They are nontender. Moist weeks membranes. Neck nontender. No lymphadenopathy. Lungs clear to auscultation bilaterally. Heart regular rhythm he does have a 4/6 murmur. Chest wall is nontender. He has a pacemaker on the right states his generator was recently replaced and there is some bruising to that site which I think is from the procedure itself. It is nontender. Prior well-healed sternotomy incision on his chest. Abdomen soft nontender. Normal bowel sounds no peritoneal signs. Pelvic girdle intact. Patient is moving all 4 extremities. He has some minor old skin tears but no active bleeding on his right elbow. His hips, knees ankle and feet are nontender. He has normal range of motion of both upper and lower extremities. No deformity. No tenderness. Back is nontender. Neurologically is awake and alert. He is carrying on a conversation easily. He has normal speech. No facial droop. He knows day, month, year, president and currently where he is at. He has no focal motor deficits. Test Results: CBC showed a white count 8. Hemoglobin 8.3 which is his baseline chronic anemia. He typically runs 8-9 for the last 2 years. I reviewed his labs from yesterday and his chemistries, UA, troponin, chest x-ray and CAT scan of his brain were unremarkable. Emergency Department Course and Treatment: I reviewed the patient's labs and radiology reports from earlier today were basically unremarkable. He has a chronic anemia. Treatment Plan: Patient has had 2 falls within the last 24 hours at home. He lives alone. He has extensive past medical history. I will speak to the hospitalist about admission. Both myself and the charge nurse attempted to contact family and were unsuccessful. I tried to call his daughter Christel at 3:17 AM and there was no answer. Her voicemail on her cell phone was full and I could not leave a message. Disposition: Admission Impression: Falls Failure to thrive Chronic anemia History of A. fib and V. tach History of pacemaker defibrillator History of CABG History of diabetes and hypertension This note was generated with [employer] dictation software. It may contain incorrect words, spelling, and punctuation that were not noted in review of the chart prior to signing ED Disposition - Plan for ED Patient: Referrals: Roselyn Goldberg MD [Primary Care Provider] -
[2020-03-06 03:14] LABS: Hematocrit 26.9 % (40-54); Hemoglobin 8.3 g/dL (13.0-16.5); Mean Corp Hgb Conc 30.9 g/dL (32-36); Mean Corpuscular Hgb 26.9 pg (27.0-32.0); Mean Corpuscular Volume 87.3 fL (80-94); Platelet Count 461 K/mm3 (150-450); RBC Distribution Width CV 18.9 % (11.6-14.6); RBC Distribution Width SD 60.2 fl (35.1-43.9); Red Blood Count 3.08 M/mm3 (4.6-6.2); White Blood Count 8.4 K/mm3 (4.4-11.0)
--- NOTE | 2020-03-06 03:29 | PCM.HP.STD ---
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 Comment: CABG x4- MONTERO to LAD, EPIFANIO to the Distal RCA, Right Radial Artery to the OM branch of CX, and Reverse SVG from the aorta to the Distal RCA 08/17/01 (6) Aortocoronary bypass status Status: Chronic Comment: CABG x4- MONTERO to LAD, EPIFANIO to the Distal RCA, Right Radial Artery to the OM branch of CX, and Reverse SVG from the aorta to the Distal RCA 08/17/01 (7) Hyperlipidemia Status: Chronic Qualifiers: Hyperlipidemia type: unspecified Qualified Code(s): E78.5 - Hyperlipidemia, unspecified (8) Carotid bruit Status: Chronic (9) Long-term use of high-risk medication Status: Chronic (10) Paroxysmal ventricular tachycardia Status: Chronic (11) Implantable cardioverter-defibrillator (ICD) in situ Status: Chronic (12) Type 2 diabetes mellitus Status: Chronic (13) Adult failure to thrive Status: Acute History of Present Illness Date of Admission: 03/06/20 Chief Complaint: Multiple falls The patient is a 74 year old M with the significance of Parkinson disease; hypertension; type 2 diabetes; and permanent pacemaker with ICD who presents to the emergency department with multiple falls. In the last 24 hours patient has fallen 2 times. He attributes his fall to poor balance. With his first fall he had a laceration at his right elbow. With his first fall he came to the ER. Work-up did not show any acute abnormality. Patient was discharge home. Patient's returned back with a second fall. With a second fall he laid at the porch and later pressed his medical alert button. Subsequently paramedics brought him to the hospital. Also, patient reports hallucinations where he sees relatives. He is happy seeing these relatives. He attributes these hallucinations to an increase in his home carbidopa- levodopa dose. Patient sees a neurologist at the [place] At the emergency department doctor was unable to reach family so a decision was made for patient to stay at the hospital. Patient lives at home by himself. Of note his pacemaker generator was changed in January of this year. Past Medical History Past Medical History (Chronic Problems): Chronic Problems (Last Reviewed 03/06/20 @ 04:[address] 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 (Chronic) CABG x4- MONTERO to LAD, EPIFANIO to the Distal RCA, Right Radial Artery to the OM branch of CX, and Reverse SVG from the aorta to the Distal RCA 08/17/01 Aortocoronary bypass status (Chronic ~08/17/01) CABG x4- MONTERO to LAD, EPIFANIO to the Distal RCA, Right Radial Artery to the OM branch of CX, and Reverse SVG from the aorta to the Distal RCA 08/17/01 Hyperlipidemia (Chronic) Carotid bruit (Chronic) Long-term use of high-risk medication (Chronic) Paroxysmal ventricular tachycardia (Chronic) Implantable cardioverter-defibrillator (ICD) in situ (Chronic ~10/23/11) Type 2 diabetes mellitus (Chronic) Medical History: Medical History (Last Reviewed 03/06/20 @ 04:[address] Vick Gay MD) Nonrheumatic aortic (valve) stenosis (Chronic) I35.0 Paroxysmal atrial fibrillation (Chronic) I48.0 Essential hypertension (Chronic) I10 Atherosclerotic heart disease of [place] coronary artery without angina pectoris (Chronic) I25.10 CABG x4- MONTERO to LAD, EPIFANIO to the Distal RCA, Right Radial Artery to the OM branch of CX, and Reverse SVG from the aorta to the Distal RCA 08/17/01 Hyperlipidemia (Chronic) E78.5 Carotid bruit (Chronic) R09.89 Long-term use of high-risk medication (Chronic) Z79.899 Paroxysmal ventricular tachycardia (Chronic) I47.2 Type 2 diabetes mellitus (Chronic) E11.9 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 Parkinsons disease G20 Atrial flutter (Inactive) I48.92 Hypertension (Inactive) I10 Allergies Iodine and Iodide Containing Produc Allergy (Verified 02/06/20 16:28) Shortness of breath simvastatin Adverse Reaction (Verified 02/06/20 16:28) Other Home Medications: Ambulatory Orders Medication Instructions Recorded Atorvastatin Calcium [Lipitor] 20 mg PO QHS 09/27/14 Diltiazem HCl [Diltiazem 24Hr ER 180 mg PO DAILY 09/27/14 (Cd)] Insulin Aspart [Novolog Flexpen] 5 units SC BREAKFAST 09/27/14 Insulin Aspart [Novolog Flexpen] 6 units SC LUNCH 09/27/14 Insulin Aspart [Novolog Flexpen] 7 units SC DINNER 09/27/14 Insulin Glargine [Lantus SoloStar 26 units SC QHS 09/27/14 Pen] Lisinopril [Zestril] 5 mg PO DAILY 09/27/14 buPROPion tablets [Wellbutrin 150 mg PO BID 09/27/14 tablets] hydrOXYzine tablet [Atarax tablet] 10 mg PO TID PRN PRN 09/27/14 metFORMIN HCl [Glucophage] 500 mg PO TIDCM 09/27/14 aspirin 325 mg tablet 325 mg PO QDAY 01/12/18 carbidopa 25 mg-levodopa 250 mg 2 tab PO Q6H tab 01/12/18 tablet gabapentin 600 mg tablet 600 mg PO BID 01/12/18 calcium citrate 315 mg-vitamin D3 1 tab PO DAILY 10/22/18 250 unit tablet ferrous sulfate 325 mg (65 mg 325 mg PO TID tab 10/22/18 iron) tablet isosorbide mononitrate 60 mg 30 mg PO DAILY tab 10/22/18 tablet,extended release 24 hr levothyroxine 137 mcg tablet 137 mcg PO DAILY 10/22/18 sertraline 100 mg tablet 150 mg PO DAILY tab 10/22/18 Acetaminophen [Tylenol Tablet] 650 mg PO Q6H PRN PRN tab 11/25/18 Albuterol Aerosols [Ventolin 2.5 mg INHALATION Q4HWA.RT 11/25/18 Aerosols] vial.neb. Ipratropium/Albuterol Sulfate 3 ml INHALATION Q6HWA.RT ampul.neb 11/25/18 [Duoneb] Ascorbic Acid [Vitamin C] 500 mg PO DAILY 02/07/20 Entacapone [Comtan] 200 mg PO DAILY 02/07/20 Famotidine 20 mg PO QHS 02/07/20 Omeprazole 40 mg PO BID 02/07/20 Amoxicillin [Amoxil] 500 mg PO Q8 #15 cap 02/08/20 Insulin Glargine [Lantus SoloStar 10 units SUBCUT BREAKFAST pen 02/09/20 Pen] Surgical History: Surgical History (Last Reviewed 03/06/20 @ 04:[address] Vick Gay MD) Aortocoronary bypass status (Chronic) Onset Date: ~08/17/01 Z95.1 CABG x4- MONTERO to LAD, EPIFANIO to the Distal RCA, Right Radial Artery to the OM branch of CX, and Reverse SVG from the aorta to the Distal RCA 08/17/01 Implantable cardioverter-defibrillator (ICD) in situ (Chronic) Onset Date: ~10/23/11 Z95.810 History of appendectomy Z90.49 History of cardiac radiofrequency ablation Onset Date: ~06/2003 Z98.890 History of orchiectomy, unilateral Z90.79 History of tonsillectomy Z90.89 Smoking Status: Former smoker - *Family History Maternal Family History: Family History (Last Reviewed 03/06/20 @ 04:[address] Vick Gay MD) Father CAD (coronary artery disease) Myocardial infarction Mother CAD (coronary artery disease) Sister Diabetes Sister CAD (coronary artery disease) Hx of CABG History Items: No pertinent history Review of Systems Constitutional: Denies: Chills, Fever, Weight Change HEENT: Denies: Head Aches, Sinus Congestion, Sinus Drainage Cardiovascular: Denies: Chest Pain, Palpitations Respiratory: Denies: Cough, Shortness of breath at rest, Sputum production Gastrointestinal: Denies: Abdominal Pain, Nausea, Vomiting Genitourinary: Denies: Dysuria Musculoskeletal: Denies: Joint Pain, Joint Tenderness Skin: Reports: Skin Changes - Diffuse ecchymosis on skin., Wounds - Skin tear to right elbow.. Denies: Rash Neurological: Denies: Numbness, Tingling, Focal weakness Psychiatric: Denies: Anxiety, Depression, Homicidal Ideations, Suicidal Ideations Hematologic/ Lymphatic: Denies: Easy Bruising, Easy Bleeding VTE Information - Inpt Only VTE Present on Admission: No VTE Mechan Device Prophylaxis: None VTE Pharm Prophylaxis ordered?: Yes Patient Problems: Active and Suspected Problems (Last Reviewed 03/06/20 @ 04:[address] Vick Gay MD) Multiple falls (Acute) Adult failure to thrive (Acute) - Physical Exam Vitals/I&O's: Vital Signs Temp Pulse Resp BP Pulse Ox 97.6 F L 79 16 139/69 H 99 03/06/20 02:46 03/06/20 02:46 03/06/20 02:46 03/06/20 02:46 03/06/20 02:46 Oxygen Delivery Method Room Air Weight: 78.9 kg Body Mass Index (BMI) 28.0 Finger Stick Blood Glucose 166 General: Alert, Oriented x3, Cooperative HEENT: Atraumatic, PERRLA, EOMI, Normocephalic Neck: Supple, No JVD, Negative Carotid Bruits Lungs: Clear to auscultation, Normal air movement, No rhonchi, No wheeze, No rales, Diminished Cardiovascular: Normal S1, Normal S2, Murmur Abdomen: Bowel Sounds Present, Soft, Non Tender Extremities: No edema, Capillary Refill Less than 3 Seconds Skin: Skin Tear - Right elbow., - - Scattered ecchymosis on skin. Dorsal right forearm with wound covered with eschar. Musculoskeletal: No Tenderness to Palpation of Joints or Extremities Neurological: Cranial nerves II-XII grossly intact Psych/Mental Status: Normal Affect, Appropriate Laboratory Results 03/06/20 03:10: WBC 8.4, RBC 3.08 L, Hgb 8.3 L, Hct 26.9 L, MCV 87.3, MCH 26.9 L, MCHC 30.9 L, RDW Std Deviation 60.2 H, RDW Coeff of Mat 18.9 H, Plt Count 461 H, MPV 8.0 Assessment/Plan All Active Problems (Last Reviewed 03/06/20 @ 04:[address] Vick Gay MD) Multiple falls (Acute) Adult failure to thrive (Acute) Implantable cardioverter-defibrillator (ICD) at end of battery life (Resolved) IDALIA (acute kidney injury) (Resolved) Community acquired pneumonia (Resolved) Influenza A (Resolved) The patient is a 74 year old M with the significance of Parkinson disease; hypertension; type 2 diabetes; and permanent pacemaker with ICD who presents to the emergency department with multiple falls. Adult failure to thrive Secondary to multiple falls and debility PT and OT to work with patient for strengthening balance training; and make recommendations. Get vitamin B-12 level and vitamin D. Case management consult to help with discharge planning Diabetes mellitus On his first visit to the ED in the last 24 hours his blood glucose was 74. Hold home hypoglycemic regimen. Accu-Chek QA CHS. Lactic acidosis Again on his first visit to the ED in the last 24 hours his lactic acid was 2.2. Home medication list include metformin. Like secondary to metformin use. Hold metformin. Parkinson's disease Patient [facility]. DVT prophylaxis Subcutaneous Lovenox. OBSV E&M: 28157 Initial observation care L3
--- NOTE | 2020-03-06 03:31 | ED.RN ---
attempted to contact family at this time. Left message with Renay daughter to call back. unable to reach either emergency contact
[2020-03-06 06:55] LABS: Bedside Glucose 172 mg/dL (70-110)
[2020-03-06 08:24] LABS: Vitamin D,25 Hydroxy 38.9 ng/mL
[2020-03-06 08:25] LABS: Vitamin B12 > 2000 pg/mL (211-911)
[2020-03-06 08:41] LABS: International Normalized Ratio 1.4; Prothrombin Time (Protime)PT. 16.5 SECONDS (11.7-14.9)
--- NOTE | 2020-03-06 10:20 | CASEMGMT ---
RN MARITZA Face to Face with patient for initial transition planning/care coordination assessment. RN CM introduced self and role at [facility]. Patient lying in bed, alert and oriented. Patient willing to participate in assessment and is able to answer all questions appropriately. Care providers, pharmacy, and demographics verified. Patient wishes to discharge to [facility] facility and list of in-network facilities provided to patient. Patient states he has no further needs or concerns at this time. CM to follow for discharge planning needs that may arise. PCP: Yusuf Specialists: none Preferred Pharmacy: [facility] Insurance: [facility] Prescription Benefit: yes Living Will/HPOA: yes, daughter Christel Cooper LNOK: daughters Living Arrangements: Patient lives alone in 3 story home with bed and bath on main floor, 4 steps and railing to enter the home. Transportation: Daughters DME/HHC: Patient has shower chair, raised toilet, hospital bed, grab bars, walker, wheelchair, and medical alert. Patient has HHC with [facility] for SN, PT/OT and aides. Daugther to come to facility at 2pm to discuss discharge planning. Disposition Plan: TBD Angela BARRETT, RN, CM
[2020-03-06] MEDS: Enoxaparin 40 MG/0.4 ML Syringe SC (10:47)
--- NOTE | 2020-03-06 10:49 | PCM.PN.BLA ---
Progress Note This is a 74 years old male patient presented to the emergency room because of fall. Patient was actually seen in the emergency department 1 day before admission and he was discharged home. He had extensive work-up including CT scan brain, chest x-ray and routine blood work which was unremarkable. Troponin was negative. He was found to have lactic acid of 2.2 without evidence of infection. Patient returned back to the emergency room within 24 hours and he was admitted for frequent falls, physical debility and inability to take care of himself. Today, he denied any complaints. His vital signs are stable. CBC from today reviewed, revealed hemoglobin of 8.3 g/dL which is chronic. Plan for PT OT evaluation and treatment, patient will need placement to long term facility. CODE STATUS: I spoke with the patient and I explained to him different types of CODE STATUS. Patient was alert and treated x3 and he was competent and was able to understand. I explained to him that in case his heart stopped working or he could not breathe on his own does he want us to do CPR, resuscitation, chest compressions, breathing tube and breathing machine and clearly he replied NO. To confirm, I spoke with the patient again about the same issue, patient's nurse was at the bedside and patient clearly mentioned that he does not want any intubation, CPR, chest compressions or mechanical ventilation. CODE STATUS is DNR CCA, no intubation. Code visit: 27412, advanced care plan, time spent on discussion with the patient is 18 minutes. STROKE Vital Signs/Narrative: Vital Signs Temp Pulse Resp BP Pulse Ox 03/06/20 08:28 97.5 F L 76 18 147/67 H 98 Procedures: 33464 Advncd Care Plan 30 Min - Time spent on discussion with the patient is 18 minutes.
--- NOTE | 2020-03-06 14:30 | CASEMGMT ---
JOSE JUAN SALAS in to discuss discharge planning with patient and daughter. Patient is agreeable to discharge to SNF and patient and daughter would like [facility]. JOSE JUAN SALAS updated SW that patient and family requesting referral to [facility].
--- NOTE | 2020-03-06 15:16 | CASEMGMT ---
As per CM, pt would like to go to [facility] at discharge. SW called [place], spoke w/Ana in admissions and faxed referral. SW will await call back. ALIYA Lopez
[2020-03-06 16:55] LABS: Bedside Glucose 193 mg/dL (70-110)
[2020-03-06] MEDS: Insulin Lispro 100 UNIT/ML INSULN.PEN SC (18:04)
[2020-03-06] MEDS: Insulin Lispro 100 UNIT/ML INSULN.PEN 7 UNIT SC (18:05)
[2020-03-06] MEDS: metFORMIN HCl 500 MG Tablet PO (18:16)
[2020-03-06] MEDS: Ferrous Sulfate 325 MG Tablet PO (18:16)
[2020-03-06] MEDS: Ipratropium/Albuterol Sulfate 3 ML AMPUL.NEB INHALATION (19:33)
--- NOTE | 2020-03-06 19:52 | CPS ---
set pt own bipap with 2 l/m bleed
[2020-03-06] MEDS: Atorvastatin Calcium 20 MG Tablet PO (21:44)
[2020-03-06] MEDS: Famotidine 20 MG Tablet PO (21:44)
[2020-03-06] MEDS: Carbidopa/Levodopa 25/250 Tablet PO (21:44)
[2020-03-06] MEDS: Gabapentin 600 MG Tablet PO (21:44)
[2020-03-06] MEDS: Pantoprazole Sodium 40 MG Tablet PO (21:44)
[2020-03-06] MEDS: buPROPion (SR) 150 MG Tablet.SA PO (21:45)
[2020-03-06 21:50] LABS: Bedside Glucose 168 mg/dL (70-110)
[2020-03-07 03:20] VITALS: BP 153/64; PULSE 72; RESP 16; TEMP 36.4; O2SAT 97
[2020-03-07 05:51] LABS: Absolute Lymphocyte Count 0.56 X10^3/uL (0.83-4.51); Absolute Neutrophil Count 3.2 X10^3/uL (2.0-7.7); Basophil# 0.02 X10^3/uL; Basophil% 0.4 % (0-1); Eosinophils% 4.2 % (0-5); Hematocrit 27.8 % (40-54); Hemoglobin 8.2 g/dL (13.0-16.5); Lymphocyte # 0.56 X10^3/ul (4.0); Lymphocyte % 11.7 % (19-41); Mean Corp Hgb Conc 29.5 g/dL (32-36); Mean Corpuscular Hgb 26.5 pg (27.0-32.0); Mean Corpuscular Volume 89.7 fL (80-94); Mean Platelet Vol. 7.9 fl (6.2-12.0); Monocyte# 0.76 X10^3/uL; Monocyte% 15.8 % (0-10); NRBC Flagged by Analyzer 0 % (0-5); Neutrophil # 3.23 X10^3/uL (2.7-7.7); Neutrophil % 67.3 % (47-70); POSITIVE DIFFERENTIAL YES; Platelet Count 416 K/mm3 (150-450); RBC Distribution Width CV 19.3 % (11.6-14.6); RBC Distribution Width SD 62.6 fl (35.1-43.9); White Blood Count 4.8 K/mm3 (4.4-11.0)
[2020-03-07 05:56] LABS: Differential Indicated SCAN CRITERIA MET
[2020-03-07 06:18] LABS: Anion Gap 4 (5-15); BUN 14 mg/dL (7-18); BUN/Creat Ratio 17.9 RATIO (10-20); Calcium,Total 8.5 mg/dL (8.5-10.1); Chloride 108 mmol/L (98-107); Creatinine, Serum 0.78 mg/dL (0.70-1.30); EST Glomerular Filtration Rate 103 mL/min (>60); Est Glom Filt Rate - Afr Amer 124 mL/min (>60); Estimated Creatinine Clearance 53.44 ml/min; Glucose 85 mg/dL (74-106); Potassium 3.5 mmol/L (3.5-5.1); Sodium Level 140 mmol/L (136-145)
[2020-03-07] MEDS: Levothyroxine 137 MCG Tablet PO (06:29)
[2020-03-07 06:30] LABS: Bedside Glucose 81 mg/dL (70-110)
[2020-03-07 06:36] LABS: Differential Comment SCANNED; Hypochromasia 3+; Ovalocyte 1+
[2020-03-07 06:48] VITALS: PULSE 85; RESP 16; O2SAT 96
[2020-03-07] MEDS: Ipratropium/Albuterol Sulfate 3 ML AMPUL.NEB INHALATION ×2 (06:48→12:32)
[2020-03-07 07:52] VITALS: BP 150/69; PULSE 81; RESP 16; TEMP 36.5; O2SAT 97
[2020-03-07] MEDS: Ferrous Sulfate 325 MG Tablet PO ×3 (08:00→16:48)
[2020-03-07] MEDS: Isosorbide Mononitrate 30 MG Tablet PO (08:01)
[2020-03-07] MEDS: metFORMIN HCl 500 MG Tablet PO ×3 (08:01→16:48)
[2020-03-07] MEDS: Lisinopril 5 MG Tablet PO (08:01)
[2020-03-07] MEDS: Aspirin 325 MG Tablet PO (08:01)
[2020-03-07] MEDS: Gabapentin 600 MG Tablet PO (08:01)
[2020-03-07] MEDS: Pantoprazole Sodium 40 MG Tablet PO (08:01)
[2020-03-07] MEDS: Sertraline 50 MG Tablet 150 MG PO (08:03)
[2020-03-07] MEDS: buPROPion (SR) 150 MG Tablet.SA PO (08:03)
--- NOTE | 2020-03-07 08:09 | NURSING ---
Confirmed with Christel GUAJARDO her is DNRCC_A no Intubation, she confirmed it.
--- NOTE | 2020-03-07 09:36 | PCM.TXEXTCAR ---
- Diet 03/06/20 04:24 Diet: ADA diet, 1800 robert, cardiac diet Food consistency:: Regular Liquid Consistency:: Regular/Thin Is pt able to select menu?: No - Routine Orders/Code Status Code Status: DNRCC-A - Wound(s) Left knee Wound Type: Abrasion right knee Wound Type: Abrasion right wrist Wound Type: Abrasion right upper forearm Wound Type: Skin Tear - Suggestions for Active Care Change Position every (hours): 3 Hours to sit in a chair: 2 Times a day to sit in chair: 3 - Therapies Weight Bearing: Weight bearing as tolerated Physical Therapy: Eval and Treat Occupational Therapy: Eval and Treat - Allergies/Procedures Done in Hospital Allergies/Adverse Reactions: Allergies Iodine and Iodide Containing Produc Allergy (Verified 03/06/20 04:13) Shortness of breath simvastatin Adverse Reaction (Verified 03/06/20 04:13) Other - Type of Care/Length of Stay Estimated LOS: Convalescent Care Less Than 30 days Type of Care Needed: Skilled Rehab Potential: Fair Prognosis: Fair - Additional Orders/Day of Discharge H&P will serve as current which was dated: 03/06/20 Day of Discharge: 03/07/20 - Follow Up Care Primary Care Physician: Roselyn Goldberg MD [Primary Care Provider] - Please follow up with your Primary Care Physician in: 1 week.
[2020-03-07] MEDS: Enoxaparin 40 MG/0.4 ML Syringe SC (09:48)
[2020-03-07] MEDS: Carbidopa/Levodopa 25/250 Tablet PO ×3 (09:48→16:49)
[2020-03-07] MEDS: dilTIAZem CD 180 MG Capsule PO (09:49)
--- NOTE | 2020-03-07 11:01 | CASEMGMT ---
Addendum entered by Vicenta Burton 03/07/20 11:59: SW did let POA daughter Renay Sullivan know that the notary page from the LW is missing. She will bring it in as able. ALIYA Lopez Original Note: LW/POA forms both scanned into summary tab of [employer]. GUNNAR LopezS
[2020-03-07] MEDS: Insulin Lispro 100 UNIT/ML INSULN.PEN 6 UNIT SC (11:41)
[2020-03-07 11:50] LABS: Bedside Glucose 145 mg/dL (70-110)
--- NOTE | 2020-03-07 12:01 | CASEMGMT ---
Addendum entered by Vicenta Burton 03/07/20 14:33: SW spoke w/Ana, she states it is okay for daughter Christel to transport pt to [facility] since she works there. JUNE called daughter Renay to let her know, also let her know that once we have precert, pt will be able to be discharged, however it is anticipated this may not happen until tomorrow. Daughter states understanding. ALIYA Lopez Addendum entered by Vicenta Burton 03/07/20 14:17: Ana from [facility] called back, message left asking for Covid results, also stating that we do not yet have precert. Covid results faxed(pt is negative). JUNE called back, message left letting her know covid results faxed, asked her about daughter driving pt to [facility] at discharge. George in the transfer center from the [place] also called to ask pt's discharge plan, he had been in touch w/Loly earlier this admission apparently. SW let him know pt is to go to [facility] once precert is attained. ALIYA Lopez Original Note: JUNE spoke w/[facility] earlier. They can take pt and was going to start precert once PT notes faxed. JUNE faxed PT notes earlier. JUNE let pt know [facility] can take pt and was starting precert. SW completed PAS/RR and attained PAS/RR with results. JUNE called daughter Renay and let her know pt has been accepted at [facility] and precert has been started. SW let her know we can send her in wheelchair van but that it is not covered by insurance. She asked if daughter Christel can bring pt since she works at the facility. JUNE called Ana at [facility] to check, she is to let this SW know. ALIYA Lopez
--- NOTE | 2020-03-07 12:59 | PCM.PROGNOTE ---
Patient Problems: Active and Suspected Problems (Last Reviewed 03/06/20 @ 04:[address] Vick Gay MD) Age-related physical debility (Acute) Multiple falls (Acute) Subjective: Chief complaint: Follow-up after admission for frequent falls, physical debility and functional decline requiring placement to shelter facility. Patient seen and examined. No acute events overnight. Today, he denied any complaints. He feels good. He was sitting on his chair eating his breakfast. His vital signs are stable. - Physical Exam Vitals/I&O's: Vital Signs Temp Pulse Resp BP Pulse Ox 97.7 F L 81 16 150/69 H 97 03/07/20 07:52 03/07/20 07:52 03/07/20 07:52 03/07/20 07:52 03/07/20 07:52 Oxygen Delivery Method Room Air Weight: 165 lb 2.02 oz Body Mass Index (BMI) 28.3 Finger Stick Blood Glucose 166 Intake and Output for Last 24 Hours 03/05/20 03/06/20 03/07/20 23:59 23:59 23:59 Intake Total 1680 / 1930 250 / 250 Output Total 650 / 975 1175 / 1175 Balance 1030 / 955 -925 / -925 General: Alert, Oriented x3, Cooperative, No apparent distress HEENT: Atraumatic, PERRLA, EOMI, Normocephalic Oral: Moist Mucosa, No Gingival or Mucosal Lesions/ Ulcerations Neck: Supple, No JVD, Negative Carotid Bruits, Trachea Midline, Thyroid Normal Size and Texture Lungs: Clear to auscultation, Normal air movement, No rhonchi, No wheeze, No rales, Diminished Cardiovascular: Regular rate, Regular Rhythm, Normal S1, Normal S2, PMI Normal, Murmur - Systolic murmur. Abdomen: Bowel Sounds Present, Soft, Non Tender, Non-Distended, No Hepato-splenomegaly Extremities: No clubbing, No cyanosis, No edema Skin: No rashes, No breakdown Lymphatic: No Cervical, Supraclavicular, or Inguinal Adenopathy Neurological: Cranial nerves II-XII grossly intact, Neuro grossly intact Psych/Mental Status: Normal Affect, Appropriate Laboratory Results 03/06/20 16:53: POC Glucose 193 H 03/06/20 21:41: POC Glucose 168 H 03/07/20 05:25: WBC 4.8, RBC 3.10 L, Hgb 8.2 L, Hct 27.8 L, MCV 89.7, MCH 26.5 L, MCHC 29.5 L, RDW Std Deviation 62.6 H, RDW Coeff of Mat 19.3 H, Plt Count 416, MPV 7.9, Immature Gran % (Auto) 0.600, Neut % (Auto) 67.3, Lymph % (Auto) 11.7 L, [place] % (Auto) 15.8 H, Eos % (Auto) 4.2, Baso % (Auto) 0.4, Absolute Neuts (auto) 3.2, Absolute Lymphs (auto) 0.56 L, Nucleated RBC % 0, Differential Comment SCANNED, Diff Path Review Not Reportable, Hypochromasia 3+, Ovalocytes 1+ 03/07/20 05:25: Sodium 140, Potassium 3.5, Chloride 108 H, Carbon Dioxide 28.0, Anion Gap 4 L, BUN 14, Creatinine 0.78, Estim Creat Clear Calc 53.44, Est GFR (MDRD) Af Amer 124, Est GFR (MDRD) Non-Af 103, BUN/Creatinine Ratio 17.9, Glucose 85, Calcium 8.5 03/07/20 06:28: POC Glucose 81 03/07/20 10:28: COVID-19 ([facility]) Pending 03/07/20 11:39: POC Glucose 145 H Current Medications Acetaminophen (Tylenol) 650 mg PO Q6H PRN PRN PRN Reason: Pain Score 1-10/Temp > 100.7 F Albuterol Sulfate (Ventolin Aerosols) 2.5 mg INHALATION Q4H PRN PRN PRN Reason: SOB, Wheezing Albuterol/Ipratropium (Duoneb) 3 ml INHALATION Q6HWA.RT [facility] Last Admin: 03/07/20 12:32 Dose: 3 ml Documented by: [facility]) [facility] Last Admin: 03/07/20 08:01 Dose: 325 mg Documented by: Atorvastatin Calcium (Lipitor) 20 mg PO QHS [facility] Last Admin: 03/06/20 21:44 Dose: 20 mg Documented by: Bupropion HCl (Wellbutrin Sr (150mg Tablets)) 150 mg PO BID [facility] Last Admin: 03/07/20 08:03 Dose: 150 mg Documented by: Carbidopa/Levodopa (Sinemet) 2 tablet PO 4X/DAY [facility] Last Admin: 03/07/20 09:48 Dose: 2 tablet Documented by: Dextrose (D50w Syringe) 0 gm IV X1 PRN; Protocol PRN Reason: Hypoglycemia Diltiazem HCl (Cardizem Cd) 180 mg PO DAILY [facility] Last Admin: 03/07/20 09:49 Dose: 180 mg Documented by: Enoxaparin Sodium (Lovenox) 40 mg SC DAILY [facility] Last Admin: 03/07/20 09:48 Dose: 40 mg Documented by: Entacapone (Comtan) 200 mg PO 4X/DAY [facility] Last Admin: 03/07/20 09:49 Dose: 200 mg Documented by: Famotidine (Pepcid) 20 mg PO QHS [facility] Last Admin: 03/06/20 21:44 Dose: 20 mg Documented by: Ferrous Sulfate (Ferrous Sulfate) 325 mg PO TIDCM [facility] Last Admin: 03/07/20 11:42 Dose: 325 mg Documented by: Gabapentin (Neurontin) 600 mg PO BID [facility] Last Admin: 03/07/20 08:01 Dose: 600 mg Documented by: Glucagon () 1 mg IM .X1 PRN PRN Reason: Hypoglycemia Hydroxyzine HCl (Atarax Tablet) 10 mg PO TID PRN PRN PRN Reason: ANXIETY Insulin Glargine (Lantus (Bkc)) 10 units SC BREAKFAST [facility] Last Admin: 03/07/20 08:02 Dose: 10 units Documented by: Insulin Glargine (Lantus (Bkc)) 26 units SC QHS [facility] Last Admin: 03/06/20 21:42 Dose: 26 u Documented by: Insulin Human Lispro (Humalog Kwikpen (Bkc)) 5 unit SC BREAKFAST [facility] Last Admin: 03/06/20 18:04 Dose: 5 u Documented by: Insulin Human Lispro (Humalog Kwikpen (Bk)) 6 unit SC LUNCH [facility] Last Admin: 03/07/20 11:41 Dose: 6 u Documented by: Insulin Human Lispro (Humalog Kwikpen (Bk)) 7 unit SC DINNER [facility] Last Admin: 03/06/20 18:05 Dose: 7 u Documented by: Isosorbide Mononitrate (Imdur) 30 mg PO DAILY [facility] Last Admin: 03/07/20 08:01 Dose: 30 mg Documented by: Levothyroxine Sodium (Synthroid) 137 mcg PO DAILY@0600 [facility] Last Admin: 03/07/20 06:29 Dose: 137 mcg Documented by: Lisinopril (Zestril) 5 mg PO DAILY [facility] Last Admin: 03/07/20 08:01 Dose: 5 mg Documented by: Metformin HCl (Glucophage) 500 mg PO TIDCM [facility] Last Admin: 03/07/20 11:42 Dose: 500 mg Documented by: Ondansetron HCl (Zofran) 4 mg IV Q8H PRN PRN PRN Reason: NAUSEA/VOMITING Pantoprazole Sodium (Protonix) 40 mg PO BID [facility] Last Admin: 03/07/20 08:01 Dose: 40 mg Documented by: Sertraline HCl (Zoloft) 150 mg PO DAILY [facility] Last Admin: 03/07/20 08:03 Dose: 150 mg Documented by: Sodium Chloride () 10 - 40 ml IV UD PRN PRN Reason: SALINE FLUSH Medical Necessity - Tobacco Use Smoking Status: Former smoker Assessment/Plan All Active Problems (Last Reviewed 03/06/20 @ 04:[address] Vick Gay MD) Age-related physical debility (Acute) Multiple falls (Acute) This is a 74 years old male patient presented to the emergency room because of frequent falls, difficulty ambulating and weakness and he was admitted for PT OT and needed placement to shelter facility. #1 physical debility/functional decline/frequent falls: Age-related. No evidence of acute illnesses or medical problems. Routine blood glucose remarkable for chronic anemia with stable hemoglobin. No evidence of infection. Vital signs has been stable. Patient was seen by PT OT and recommended placement to shelter facility. Awaiting insurance approval for placement to SNF. #2 CAD status post CABG: Stable, no complaints. Continue aspirin, statins, isosorbide mononitrate and lisinopril. #3 type 2 diabetes mellitus: Blood sugar stable, continue Lantus, Humalog 3 times daily and metformin. #4 history of paroxysmal ventricular tachycardia: Status post ICD. Stable, heart rate stable, blood pressure stable. #5 chronic anemia: Secondary to anemia of chronic disease. Today's hemoglobin is 8.2 g/dL, stable at baseline. #6 paroxysmal atrial fibrillation: Heart rate has been controlled. Continue Cardizem for rate control. Patient is not on anticoagulation. #7 hypertension: Blood pressure stable, continue lisinopril, isosorbide mononitrate and Cardizem. #8 hyperlipidemia: Continue statins. #9 Parkinson's disease: Stable, continue Sinemet and entacapone. #10 hypothyroidism: Continue levothyroxine. #11 CODE STATUS: DNR CCA, no intubation. Discussed with the patient. Patient's daughter was notified and she is in agreement. #12 DVT prophylaxis: Subcu Lovenox. This note was generated with [employer] dictation software. It may contain incorrect words, spelling, and punctuation that were not noted in checking the note before signing. OBSV E&M: 20128 Subsequent observation care L2
[2020-03-07 13:00] VITALS: PULSE 80; RESP 16
[2020-03-07 14:20] VITALS: BP 120/63; PULSE 78; RESP 16; TEMP 36.4; O2SAT 98
--- NOTE | 2020-03-07 15:38 | CASEMGMT ---
JOSE JUAN CM in to discuss SALMON form with patient. SALMON form explained to patient and he voices understanding. Patient signed SALMON form. Original filed in chart. Copy of signed form provided to patient. Patient had no further needs or concerns at this time.
--- NOTE | 2020-03-07 16:45 | CASEMGMT ---
JUNE got a call from Ana at [facility], pt is authorized to go today. JUNE faxed discharge instructions, PAS/RR with results, over to [facility]. JUNE called daughter Renay, let her know pt can be discharged to [facility] today. Pt's daughter Christel will take pt over this evening. JUNE asked daughter to call nurses' station to let nurses know when pt will be going over. JUNE informed physician pt can be discharged today. RN on floor to let [facility] know when pt will be going over. JUNE let pt know also pt can go to [facility] today. Pt in agreement. No further needs anticipated. ALIYA Lopez
--- NOTE | 2020-03-07 16:46 | PCM.DC.SUM ---
Discharge Date and Diagnosis - Problem List Patient Problems: Active and Suspected Problems (Last Reviewed 03/06/20 @ 04:[address] Vick Gay MD) Age-related physical debility (Acute) Date of Admission: 03/06/20 Date of Discharge: 03/07/20 - Primary Discharge Diagnosis Acute Problems: Active Problems (Last Reviewed 03/06/20 @ 04:[address] Vick Gay MD) Physical debility/functional decline/frequent falls, needed placement to snf facility. - Secondary Discharge Diagnosis Chronic Problems: Chronic Problems (Last Reviewed 03/06/20 @ 04:[address] Vick Gay MD) Implantable cardioverter-defibrillator (ICD) at end of battery life (Chronic) Nonrheumatic aortic (valve) stenosis (Chronic) Paroxysmal atrial fibrillation (Chronic) Essential hypertension (Chronic) Atherosclerotic heart disease of [place] coronary artery without angina pectoris (Chronic) CABG x4- MONTERO to LAD, EPIFANIO to the Distal RCA, Right Radial Artery to the OM branch of CX, and Reverse SVG from the aorta to the Distal RCA 08/17/01 Aortocoronary bypass status (Chronic ~08/17/01) CABG x4- MONTERO to LAD, EPIFANIO to the Distal RCA, Right Radial Artery to the OM branch of CX, and Reverse SVG from the aorta to the Distal RCA 08/17/01 Hyperlipidemia (Chronic) Carotid bruit (Chronic) Long-term use of high-risk medication (Chronic) Paroxysmal ventricular tachycardia (Chronic) Implantable cardioverter-defibrillator (ICD) in situ (Chronic ~10/23/11) Type 2 diabetes mellitus (Chronic) Hospital Course and Treatment Operations: None Procedures: None Summary of Care Provided: Patient seen and examined on the day of discharge and appeared to be stable to be discharged to skilled facility. He denied any complaints. His vital signs were stable. The patient is a 74 year old M presented to the emergency room because of frequent falls, difficulty ambulating and not able to take care of himself. During this hospital stay, no evidence of acute illnesses or diseases identified. His symptoms are age-related. Actually patient came to the emergency department 1 day before admission for fall, had work-up including chest x-ray and CT scan brain that was unremarkable and he was discharged home. He returned back next day for the same problem. He had CT scan brain without contrast on March 05, 2020 that showed no acute findings and no head injury. On that day, he had chest x-ray that revealed no evidence of acute infiltrate or consolidation. His routine blood work was remarkable for chronic anemia with stable hemoglobin at his baseline. His BMP was unremarkable. COVID-19 PCR was done for placement purposes and was negative. Patient's vital signs were stable throughout admission. He was evaluated by PT OT and recommended placement to snf facility. During this hospital stay, I spoke with the patient twice about his CODE STATUS. I explained to him different types of codes including full code, DNR CCA with and without intubation as well as DNR CC. Patient was competent to take his decision. He clearly mentioned that he does not want any life-sustaining measures, no CPR, no intubation, no chest compressions and no mechanical ventilation. CODE STATUS is DNR CCA, no intubation. Patient discharged to SNF in a stable condition, discharged on his previous home medication without any changes, recommended follow-up with PCP in 1 weeks. Patient Problems: Active and Suspected Problems (Last Reviewed 03/06/20 @ 04:[address] Vick Gay MD) Age-related physical debility (Acute) - Physical Exam Vitals/I&O's: Vital Signs Temp Pulse Resp BP Pulse Ox 97.6 F L 78 16 120/63 98 03/07/20 14:20 03/07/20 14:20 03/07/20 14:20 03/07/20 14:20 03/07/20 14:20 Oxygen Delivery Method Room Air Weight: 165 lb 2.02 oz Body Mass Index (BMI) 28.3 Finger Stick Blood Glucose 166 Intake and Output for Last 24 Hours 03/05/20 03/06/20 03/07/20 23:59 23:59 23:59 Intake Total 1680 / 1930 250 / 250 Output Total 650 / 975 1175 / 1175 Balance 1030 / 955 -925 / -925 General: Alert, Oriented x3, Cooperative, No apparent distress HEENT: Atraumatic, PERRLA, EOMI, Normocephalic Oral: Moist Mucosa, No Gingival or Mucosal Lesions/ Ulcerations Neck: Supple, No JVD, Negative Carotid Bruits, Trachea Midline, Thyroid Normal Size and Texture Lungs: Clear to auscultation, Normal air movement, No rhonchi, No wheeze, No rales, Diminished Cardiovascular: Regular rate, Regular Rhythm, Normal S1, Normal S2, PMI Normal, Murmur - Systolic murmur. Abdomen: Bowel Sounds Present, Soft, Non Tender, Non-Distended, No Hepato-splenomegaly Extremities: No clubbing, No cyanosis, No edema Skin: No rashes, No breakdown Lymphatic: No Cervical, Supraclavicular, or Inguinal Adenopathy Neurological: Cranial nerves II-XII grossly intact, Neuro grossly intact Psych/Mental Status: Normal Affect, Appropriate Laboratory Results 03/06/20 16:53: POC Glucose 193 H 03/06/20 21:41: POC Glucose 168 H 03/07/20 05:25: WBC 4.8, RBC 3.10 L, Hgb 8.2 L, Hct 27.8 L, MCV 89.7, MCH 26.5 L, MCHC 29.5 L, RDW Std Deviation 62.6 H, RDW Coeff of Mat 19.3 H, Plt Count 416, MPV 7.9, Immature Gran % (Auto) 0.600, Neut % (Auto) 67.3, Lymph % (Auto) 11.7 L, [place] % (Auto) 15.8 H, Eos % (Auto) 4.2, Baso % (Auto) 0.4, Absolute Neuts (auto) 3.2, Absolute Lymphs (auto) 0.56 L, Nucleated RBC % 0, Differential Comment SCANNED, Diff Path Review Not Reportable, Hypochromasia 3+, Ovalocytes 1+ 03/07/20 05:25: Sodium 140, Potassium 3.5, Chloride 108 H, Carbon Dioxide 28.0, Anion Gap 4 L, BUN 14, Creatinine 0.78, Estim Creat Clear Calc 53.44, Est GFR (MDRD) Af Amer 124, Est GFR (MDRD) Non-Af 103, BUN/Creatinine Ratio 17.9, Glucose 85, Calcium 8.5 03/07/20 06:28: POC Glucose 81 03/07/20 10:28: COVID-19 ([facility]) Not Detected 03/07/20 11:39: POC Glucose 145 H Current Medications Acetaminophen (Tylenol) 650 mg PO Q6H PRN PRN PRN Reason: Pain Score 1-10/Temp > 100.7 F Albuterol Sulfate (Ventolin Aerosols) 2.5 mg INHALATION Q4H PRN PRN PRN Reason: SOB, Wheezing Albuterol/Ipratropium (Duoneb) 3 ml INHALATION Q6HWA.RT [facility] Last Admin: 03/07/20 12:32 Dose: 3 ml Documented by: Aspirin (Aspirin) 325 mg PO DAILYCM [facility] Last Admin: 03/07/20 08:01 Dose: 325 mg Documented by: Atorvastatin Calcium (Lipitor) 20 mg PO QHS [facility] Last Admin: 03/06/20 21:44 Dose: 20 mg Documented by: Bupropion HCl (Wellbutrin Sr (150mg Tablets)) 150 mg PO BID [facility] Last Admin: 03/07/20 08:03 Dose: 150 mg Documented by: Carbidopa/Levodopa (Sinemet) 2 tablet PO 4X/DAY [facility] Last Admin: 03/07/20 14:20 Dose: 2 tablet Documented by: Dextrose (D50w Syringe) 0 gm IV X1 PRN; Protocol PRN Reason: Hypoglycemia Diltiazem HCl (Cardizem Cd) 180 mg PO DAILY [facility] Last Admin: 03/07/20 09:49 Dose: 180 mg Documented by: Enoxaparin Sodium (Lovenox) 40 mg SC DAILY [facility] Last Admin: 03/07/20 09:48 Dose: 40 mg Documented by: Entacapone (Comtan) 200 mg PO 4X/DAY [facility] Last Admin: 03/07/20 14:20 Dose: 200 mg Documented by: Famotidine (Pepcid) 20 mg PO QHS [facility] Last Admin: 03/06/20 21:44 Dose: 20 mg Documented by: Ferrous Sulfate (Ferrous Sulfate) 325 mg PO TIDCM [facility] Last Admin: 03/07/20 11:42 Dose: 325 mg Documented by: Gabapentin (Neurontin) 600 mg PO BID [facility] Last Admin: 03/07/20 08:01 Dose: 600 mg Documented by: Glucagon () 1 mg IM .X1 PRN PRN Reason: Hypoglycemia Hydroxyzine HCl (Atarax Tablet) 10 mg PO TID PRN PRN PRN Reason: ANXIETY Insulin Glargine (Lantus (Bkc)) 10 units SC BREAKFAST [facility] Last Admin: 03/07/20 08:02 Dose: 10 units Documented by: Insulin Glargine (Lantus (Bkc)) 26 units SC QHS [facility] Last Admin: 03/06/20 21:42 Dose: 26 u Documented by: Insulin Human Lispro (Humalog Kwikpen ([facility])) 5 unit SC BREAKFAST [facility] Last Admin: 03/06/20 18:04 Dose: 5 u Documented by: Insulin Human Lispro (Humalog Kwikpen ([facility])) 6 unit SC LUNCH [facility] Last Admin: 03/07/20 11:41 Dose: 6 u Documented by: Insulin Human Lispro (Humalog Kwikpen ([facility])) 7 unit SC DINNER [facility] Last Admin: 03/06/20 18:05 Dose: 7 u Documented by: Isosorbide Mononitrate (Imdur) 30 mg PO DAILY [facility] Last Admin: 03/07/20 08:01 Dose: 30 mg Documented by: Levothyroxine Sodium (Synthroid) 137 mcg PO DAILY@0600 [facility] Last Admin: 03/07/20 06:29 Dose: 137 mcg Documented by: Lisinopril (Zestril) 5 mg PO DAILY [facility] Last Admin: 03/07/20 08:01 Dose: 5 mg Documented by: Metformin HCl (Glucophage) 500 mg PO TIDCM [facility] Last Admin: 03/07/20 11:42 Dose: 500 mg Documented by: Ondansetron HCl (Zofran) 4 mg IV Q8H PRN PRN PRN Reason: NAUSEA/VOMITING Pantoprazole Sodium (Protonix) 40 mg PO BID [facility] Last Admin: 03/07/20 08:01 Dose: 40 mg Documented by: Sertraline HCl (Zoloft) 150 mg PO DAILY [facility] Last Admin: 03/07/20 08:03 Dose: 150 mg Documented by: Sodium Chloride () 10 - 40 ml IV UD PRN PRN Reason: SALINE FLUSH Home Medications: Medications to take at Discharge Atorvastatin Calcium [Lipitor] 20 mg PO QHS 09/27/14 Diltiazem HCl [Diltiazem 24Hr ER (Cd)] 180 mg PO DAILY 09/27/14 Insulin Aspart [Novolog Flexpen] 5 units SC BREAKFAST 09/27/14 Insulin Aspart [Novolog Flexpen] 6 units SC LUNCH 09/27/14 Insulin Aspart [Novolog Flexpen] 7 units SC DINNER 09/27/14 Insulin Glargine [Lantus SoloStar Pen] 26 units SC QHS 09/27/14 Lisinopril [Zestril] 5 mg PO DAILY 09/27/14 buPROPion tablets [Wellbutrin tablets] 150 mg PO DAILY 09/27/14 hydrOXYzine tablet [Atarax tablet] 10 mg PO TID PRN PRN 09/27/14 metFORMIN HCl [Glucophage] 500 mg PO TIDCM 09/27/14 aspirin 325 mg tablet 325 mg PO QDAY 01/12/18 carbidopa 25 mg-levodopa 250 mg tablet 2 tab PO 4X/DAY tab 01/12/18 gabapentin 600 mg tablet 600 mg PO BID 01/12/18 calcium citrate 315 mg-vitamin D3 250 unit tablet 1 tab PO DAILY 10/22/18 ferrous sulfate 325 mg (65 mg iron) tablet 325 mg PO TID tab 10/22/18 isosorbide mononitrate 60 mg tablet,extended release 24 hr 30 mg PO DAILY tab 10/22/18 levothyroxine 137 mcg tablet 137 mcg PO DAILY 10/22/18 sertraline 100 mg tablet 150 mg PO DAILY tab 10/22/18 Acetaminophen [Tylenol Tablet] 650 mg PO Q6H PRN PRN tab 11/25/18 Albuterol Aerosols [Ventolin Aerosols] 2.5 mg INHALATION Q4HWA.RT vial.neb. 11/25/18 Ipratropium/Albuterol Sulfate [Duoneb] 3 ml INHALATION Q6HWA.RT ampul.neb 11/25/18 Ascorbic Acid [Vitamin C] 500 mg PO DAILY 02/07/20 Entacapone [Comtan] 200 mg PO 4X/DAY 02/07/20 Famotidine 20 mg PO QHS 02/07/20 Omeprazole 40 mg PO BID 02/07/20 Insulin Glargine [Lantus SoloStar Pen] 10 units SUBCUT BREAKFAST pen 02/09/20 Primary Care Physician: Roselyn Goldberg MD [Primary Care Provider] - Please follow up with your Primary Care Physician in: 1 week. Disposition: [facility] facility Minutes spent on discharge:: 27 Patient Condition:: Stable Medical Necessity - Tobacco Use Smoking Status: Former smoker Meaningful Use Info Meaningful Use Diagnoses (Choose all that apply): None applicable OBSV E&M: 22385 Observation care discharge
[2020-03-07] MEDS: Insulin Lispro 100 UNIT/ML INSULN.PEN 7 UNIT SC (16:49)
== END 2020-03-07 18:15 | disposition skilled nursing facility (03) ==
LOC: ED 03:29 → MS3 04:19
PROVIDERS: Admitting Provider Hospitalist; Emergency Provider Emergency Medicine; PCP Internal Medicine; Visit Provider Hospitalist
DX: R54 Age-related physical debility (principal); R29.6 Repeated falls; I25.10 Atherosclerotic heart disease of native coronary artery without angina pectoris; E78.5 Hyperlipidemia, unspecified; E11.9 Type 2 diabetes mellitus without complications; I48.0 Paroxysmal atrial fibrillation; I10 Essential (primary) hypertension; R09.89 Other specified symptoms and signs involving the circulatory and respiratory systems; I47.2 Ventricular tachycardia; G20 Parkinson's disease; E87.2 Acidosis; R62.7 Adult failure to thrive; D63.8 Anemia in other chronic diseases classified elsewhere; E03.9 Hypothyroidism, unspecified; Z95.810 Presence of automatic (implantable) cardiac defibrillator; Z95.1 Presence of aortocoronary bypass graft; Z79.899 Other long term (current) drug therapy; Z79.4 Long term (current) use of insulin; Z79.82 Long term (current) use of aspirin; Z68.28 Body mass index [BMI] 28.0-28.9, adult; Z87.891 Personal history of nicotine dependence
CPT/HCPCS: 36415; 80048; 82306; 82607; 82962; 85025; 85027; 85610; 87635; 94640; 96372; 97116; 97162; 97166; 97530; 99218; 99251; 99285; G2023; A4216; G0378; G0463; U0003

== ENCOUNTER 2020-04-27 13:51 | Emergency (ER) | payer MEDICARE, SELFPAY ==
[2020-03-24 10:06] VITALS: BMI 28.6
[2020-04-27 13:51] VITALS: BP 112/56; PULSE 70; RESP 18; TEMP 36.6; O2SAT 96; BMI 29.0
--- NOTE | 2020-04-27 14:17 | ED.VISSUMM ---
- ER Visit Summary Date of Service: 04/27/20 Chief Complaint: Right lower extremity wound History of Present Illness: The patient is a 74 M who has a wound on the right lower extremity. 5 days ago he was getting out of his power chair when he scraped the anterior tibial area on his right lower extremity. Since then he has had pain in this area. His family member noted some drainage today when he saw this wound. Patient denies any significant pain with ambulation. He has not had a fever. He is a diabetic. He has been trying peroxide and triple antibiotic cream without any improvement. Physical Examination: Vital signs are reviewed. Right lower extremity reveals a 7 cm x 1.5 cm abrasion to the anterior tibial area. There is some mild surrounding erythema. It is tender to palpation. There is a mild serous drainage. There is no calf tenderness. He has full range of motion of the foot and knee. Test Results: None performed Emergency Department Course and Treatment: The patient is currently afebrile with normal vital signs. He is not tachycardic. He does have an infected wound on the right lower extremity. I will treat him with Keflex and topical Bactroban cream to apply to this area. He will keep the area clean and dry. He will follow-up with the wound clinic next week for a wound check Treatment Plan: [] Disposition: Discharge Impression: infected wound, right lower extremity This note was generated with [employer] dictation software. It may contain incorrect words, spelling, and punctuation that were not noted in review of the chart prior to signing ED Disposition - Plan for ED Patient: Disposition: Home or Assisted Living Instructions: ED Wound Care Prescriptions: Mupirocin [Bactroban] 1 applic TOPICAL TID #1 tube Transmission Status: Pending to [id number] Cephalexin [Keflex] 500 mg PO Q6 #28 cap Transmission Status: Pending to [facility] Referrals: Roselyn Goldberg MD [Primary Care Provider] -
[2020-04-27] MEDS: Cephalexin 250 MG Capsule 500 MG PO (14:32)
== END 2020-04-27 14:37 | disposition home or self-care (01) ==
PROVIDERS: Emergency Provider Emergency Medicine; PCP Internal Medicine
DX: S80.811A Abrasion, right lower leg, initial encounter (principal); L08.9 Local infection of the skin and subcutaneous tissue, unspecified; W22.8XXA Striking against or struck by other objects, initial encounter; Y93.9 Activity, unspecified; Y92.9 Unspecified place or not applicable; E11.9 Type 2 diabetes mellitus without complications; I10 Essential (primary) hypertension; I48.0 Paroxysmal atrial fibrillation; E78.00 Pure hypercholesterolemia, unspecified; Z95.810 Presence of automatic (implantable) cardiac defibrillator; Z79.4 Long term (current) use of insulin; Z79.82 Long term (current) use of aspirin; Z79.84 Long term (current) use of oral hypoglycemic drugs; Z79.899 Other long term (current) drug therapy
CPT/HCPCS: 99283

== ENCOUNTER 2020-06-01 09:02 | Inpatient (IN) | payer OTHER, MEDICARE, SELFPAY ==
[2020-06-01] VITALS (16 sets, daily range): BP systolic 96–168; BP diastolic 47–103; PULSE 68–90; RESP 14–20; TEMP 36.3–36.8; O2SAT 94–100; BMI 25.6; BMI 27.3; BMI 27.4
--- NOTE | 2020-06-01 09:10 | EKG12_ITS ---
Test Reason : WEAKNESS Blood Pressure : / mmHG Vent. Rate : 080 BPM Atrial Rate : 080 BPM P-R Int : 296 ms QRS Dur : 138 ms QT Int : 436 ms P-R-T Axes : 093 -56 058 degrees QTc Int : 502 ms Suspect unspecified pacemaker failure Sinus rhythm with sinus arrhythmia with 1st degree A-V block with occasional ventricular-paced comple xes Right bundle branch block Left anterior fascicular block Bifascicular block Abnormal ECG Confirmed by YUE CEVALLOS, YO ([id number]), general expeditor JESSICA OLIVER ([id number]) on 06/05/2020 2:36:15 PM Referred By: LOIS Confirmed By:MAURICE TURNER MD
--- NOTE | 2020-06-01 09:10 | RAD_ITS ---
STUDY: X-RAY - UNILATERAL RIBS ( RIGHT ) WITH CHEST REASON FOR EXAM: Male, 75 years old. FALL FROM WHEELCHAIR- UNKNOWN HOW LONG PT WAS LAYING ON FLOOR. CONFUSION, PAIN, POSTERIOR ABRASION TO MID BACK TECHNIQUE - RIBS: 4 view(s) of the ribs. TECHNIQUE - CHEST: Single PA view of the chest. COMPARISON: Comparison is made with prior chest radiograph dated 03/05/2020. FINDINGS - RIBS: Nondisplaced fractures along the posterior aspect of the right 910 and 11th ribs. Old fractures of the anterolateral aspect of the seventh and eighth ribs. FINDINGS - CHEST: EKG electrodes are seen. Increased markings in the right hemithorax suggestive of possible small pleural effusion with underlying scarring. Sternal cerclage wires and vascular clips are present from a prior sternotomy and coronary artery bypass graft procedure (CABG). Normal mediastinum and arun. Normal visualized pulmonary arteries. There is atherosclerotic calcification of the aortic arch with tortuosity. There are diffuse degenerative changes of the visualized thoracic spine. Normal visualized ribs, clavicles, and shoulders. There is no demonstrated abnormality of the visualized soft tissue structures of the upper abdomen. RAD/Ribs Uni Min 3V w/PA Chest IMPRESSION: RIBS: Nondisplaced fractures of the right ninth 10th and 11th ribs. Findings there is a small right pleural effusion with scarring. CHEST: Normal x-ray examination of the chest. Electronically Signed: Charles Steen, at 10:00 EDT , Service support ,
--- NOTE | 2020-06-01 09:11 | RAD_ITS ---
STUDY: X-RAY - RIGHT SHOULDER REASON FOR EXAM: Male, 75 years old. FALL FROM WHEELCHAIR- UNKNOWN HOW LONG PT WAS LAYING ON FLOOR. CONFUSION, PAIN, POSTERIOR ABRASION TO MID BACK TECHNIQUE: 4 view(s) of the shoulder. COMPARISON: None. FINDINGS: There is mild degenerative arthrosis of the glenohumeral articulation. There is degenerative arthrosis of the acromioclavicular joint without inferior osseous spur formation. Normal acromion. Decreased distance between the humeral head and the acromion. This is suggestive of a rotator cuff disease. There is periarticular soft tissue calcification consistent with a calcific tendinitis. Normal visualized pulmonary apex. RAD/Shoulder min 2 Views IMPRESSION: Joint space narrowing of the glenohumeral joint with evidence of rotator cuff disease. Calcific tendinitis. Electronically Signed: Charles Steen, at 9:58 EDT , Service support ,
[2020-06-01] MEDS: Ondansetron 4 MG/2 ML Vial IV (09:19)
[2020-06-01] MEDS: Morphine 4 MG/ML Syringe IV (09:19)
--- NOTE | 2020-06-01 09:20 | CT_ITS ---
STUDY: CT BRAIN WITHOUT CONTRAST REASON FOR EXAM: Male, 75 years old. FELL.. TESTICULAR CA RADIATION DOSAGE (If Supplied By Facility): CTDIvol = ( 44.99 ) mGy, DLP = ( 880.47 ) mGycm TECHNIQUE: Transaxial CT imaging of the brain was performed without administration of intravenous contrast material. Individualized dose optimization techniques were used for this CT. COMPARISON: Comparison is made with prior study dated 03/05/2020. FINDINGS: Normal soft tissue structures. Normal calvarium. There is mild cerebral atrophy with widening of the extra-axial spaces and ventricular dilatation. There are areas of decreased attenuation within the white matter tracts of the supratentorial brain, consistent with microvascular disease changes. Stable encephalomalacia in the posterior left parietal occipital lobes. Normal basal ganglia and thalami. Normal brainstem. Normal cerebellum. There is no intracranial hemorrhage. There are no findings of an acute ischemic infarction. Atherosclerotic calcification of the vertebral arteries and cavernous portions of the internal carotid arteries bilaterally. Normal visualized paranasal sinuses. CT/Brain/Head without Contrast IMPRESSION: Chronic involutional changes of the brain. Electronically Signed: Charles Steen, at 9:58 EDT , Service support ,
[2020-06-01 09:27] LABS: Absolute Lymphocyte Count 0.44 X10^3/uL (0.83-4.51); Absolute Neutrophil Count 6.4 X10^3/uL (2.0-7.7); Basophil# 0.02 X10^3/uL; Basophil% 0.3 % (0-1); Eosinophil# 0.14 X10^3/uL; Eosinophils% 1.8 % (0-5); Hematocrit 23.6 % (40-54); Hemoglobin 7.1 g/dL (13.0-16.5); Lymphocyte # 0.44 X10^3/ul (4.0); Lymphocyte % 5.7 % (19-41); Mean Corp Hgb Conc 30.1 g/dL (32-36); Mean Corpuscular Hgb 27.1 pg (27.0-32.0); Mean Corpuscular Volume 90.1 fL (80-94); Mean Platelet Vol. 8.5 fl (6.2-12.0); Monocyte# 0.69 X10^3/uL; Monocyte% 8.9 % (0-10); NRBC Flagged by Analyzer 0 % (0-5); Neutrophil # 6.41 X10^3/uL (2.7-7.7); Neutrophil % 82.8 % (47-70); POSITIVE DIFFERENTIAL YES; Platelet Count 449 K/mm3 (150-450); RBC Distribution Width CV 19.1 % (11.6-14.6); RBC Distribution Width SD 62.1 fl (35.1-43.9); Red Blood Count 2.62 M/mm3 (4.6-6.2); White Blood Count 7.7 K/mm3 (4.4-11.0)
[2020-06-01 09:29] LABS: Differential Indicated SCAN CRITERIA MET
--- NOTE | 2020-06-01 09:29 | ED.DCSUM_ITS ---
- ER Visit Summary Date of Service: 06/01/20 Chief Complaint: Fall History of Present Illness: The patient is a [address] Robins. He is a poor informant. He reports that he fell out of his wheelchair and was unable to get up. However, he is unsure what time this occurred. He does not know whether or not he had a loss of consciousness. He is not on anticoagulants. He reports that he has right-sided chest pain that is 6 out of 10 in severity. Right shoulder pain is stated 10 severity. He denies headache. No neck, back, left shoulder, wrist, or hip pain. Patient reports that he is congested. He denies any other complaints on review of systems. He does live by himself. He has home health come out and they make preprepared meals that he warms for himself. Physical Examination: Vitals: Stable. Afebrile. Neck: No vertebral tenderness. Full ROM without difficulty. Cleared by NEXUS criteria. Back: No vertebral tenderness. General: A&O x 3. NAD. Cardiovascular exam: Regular rate and rhythm, 2 out of 6 systolic murmur. Respiratory exam: Moderate tenderness to palpation over the lower ribs on the right posteriorly. He has a healing abrasion here that appears old.. No crepitus. Clear to auscultation bilaterally. No wheezes or stridor. Abdominal exam: Soft, nontender, nondistended, normal bowel sounds. No pain in RUQ or LUQ specifically. No peritoneal signs. Extremity: Mild tenderness palpation over the right shoulder. Good range of motion with minimal pain. Test Results: EKG is sinus at 80 with paced PVCs and a bifascicular block. He has nonspecific ST changes. CPK is 254. Chem-7 shows a BUN of 33, creatinine 1.49, glucose 117. Creatinine is 0.78?1.26 otherwise in 2020. CBC shows an H&H of 7.1 and 23.6, 7 neutrophils of 83, lymphocytes of 6. Hemoglobin has been 8.0?9.01 2019. Urinalysis does not appear infected. Clinical Impression(s) from Imaging Studies Ribs w/Chest X-Ray 06/01/20 09:10 IMPRESSION: RIBS: Nondisplaced fractures of the right ninth 10th and 11th ribs. Findings there is a small right pleural effusion with scarring. CHEST: Normal x-ray examination of the chest. Electronically Signed: Charles Steen, at 10:00 EDT , Service support , Shoulder X-Ray 06/01/20 09:11 IMPRESSION: Joint space narrowing of the glenohumeral joint with evidence of rotator cuff disease. Calcific tendinitis. Electronically Signed: Charles Steen, at 9:58 EDT , Service support , Brain CT 06/01/20 09:20 IMPRESSION: Chronic involutional changes of the brain. Electronically Signed: Charles Steen, at 9:58 EDT , Service support , Emergency Department Course and Treatment: Patient had an IV placed. He was given morphine and Zofran IV. He is resting more comfortably. Pacemaker was interrogated. There is no failure. He had an episode of A. fib on March 09 last 32 minutes and 7 seconds. There was noise on May 30 and last approximately 2 seconds. The pacemaker is functioning normally otherwise. Treatment Plan: Patient has a very difficult time even rolling over in bed with assistance. I do not think that sending him home is in his best interest. He was discussed with his daughter who is power of environmental attorney. He will be admitted to the hospital and likely transferred to [facility] in [place]. The patient was discussed with Dr. Chou who agrees with this. Disposition: Admitted in improved condition. Impression: 1. Fall, recurrent. 2. Right ninth, 10th, and 11th rib fractures. 3. Right pleural effusion. 4. Anemia. 5. Acute kidney injury. This note was generated with Backspaces[employer] software. It may contain incorrect words, spelling, and punctuation that were not noted in review of the chart prior to signing ED Disposition - Plan for ED Patient: Referrals: Roselyn Goldberg MD [Primary Care Provider] -
[2020-06-01 09:48] LABS: CPK Total, Creatine Kinase 254 U/L (39-308)
[2020-06-01 09:50] LABS: Differential Comment SCANNED
[2020-06-01 09:51] LABS: Bedside Glucose 132 mg/dL (70-110)
[2020-06-01 09:52] LABS: Anion Gap 6 (5-15); BUN 33 mg/dL (7-18); BUN/Creat Ratio 22.1 RATIO (10-20); Calcium,Total 8.8 mg/dL (8.5-10.1); Chloride 106 mmol/L (98-107); Creatinine, Serum 1.49 mg/dL (0.70-1.30); EST Glomerular Filtration Rate 49 mL/min (>60); Est Glom Filt Rate - Afr Amer 59 mL/min (>60); Estimated Creatinine Clearance 39.43 ml/min; Glucose 117 mg/dL (74-106); Potassium 5.1 mmol/L (3.5-5.1); Sodium Level 136 mmol/L (136-145)
[2020-06-01 10:04] LABS: Mucous, Urine 0 SEEN /hpf (<or=2+); Red Blood Cells-Urine 0 SEEN /hpf (0-5); Squamous Epithelial Cells - UA 0 SEEN /hpf (0-5)
--- NOTE | 2020-06-01 10:17 | ED.RN ---
[employer]ATED. [employer] CONTACTED
[2020-06-01 10:23] LABS: Color, Urine Yellow (Yellow); Glucose, Dipstick Normal (Normal); Ketone-Dipstick 15 mg/dl (Negative); Leukocyte Esterase-Dipstick 25 /ul (Negative); Nitrite-Dipstick Negative (Negative); Occult Blood-Urine 10 /ul (Negative); Protein-Dipstick 30 mg/dl (Negative); Urine Bilirubin Dipstick Negative (Negative); Urine Clarity Clear (Clear); Urine Urobilinogen Normal (Normal)
[2020-06-01 10:33] LABS: Bacteria RARE /hpf (None Seen); White Blood Cells 0-5 SEEN /hpf (0-5)
--- NOTE | 2020-06-01 11:10 | NURSING ---
MED SURG IDALIA, ANEMIA, RIB FXS, FALL ASHELFAH
--- NOTE | 2020-06-01 11:33 | PCM.HP.STD ---
Problem List (1) Acute on chronic anemia Status: Acute (2) Rib fracture Status: Acute (3) Acute kidney injury Status: Acute (4) Implantable cardioverter-defibrillator (ICD) at end of battery life Status: Chronic (5) Paroxysmal atrial fibrillation Status: Chronic (6) Essential hypertension Status: Chronic (7) Atherosclerotic heart disease of [place] coronary artery without angina pectoris Status: Chronic Qualifiers: [place] vs. transplanted heart: [place] heart Qualified Code(s): I25.10 - Atherosclerotic heart disease of [place] coronary artery without angina pectoris Comment: CABG x4- MONTERO to LAD, EPIFANIO to the Distal RCA, Right Radial Artery to the OM branch of CX, and Reverse SVG from the aorta to the Distal RCA 08/17/01 (8) Aortocoronary bypass status Status: Chronic Comment: CABG x4- MONTERO to LAD, EPIFANIO to the Distal RCA, Right Radial Artery to the OM branch of CX, and Reverse SVG from the aorta to the Distal RCA 08/17/01 (9) Hyperlipidemia Status: Chronic Qualifiers: Hyperlipidemia type: unspecified Qualified Code(s): E78.5 - Hyperlipidemia, unspecified (10) Paroxysmal ventricular tachycardia Status: Chronic (11) Type 2 diabetes mellitus Status: Chronic History of Present Illness Date of Admission: 06/01/20 Chief Complaint: Fall. The patient is a 75 year old M with past medical history as mentioned above presented to the emergency room because of fall. The patient is very poor informant and he was not aware of what made him come to the hospital today. He was alert and oriented x3, he knew his full name, date of , location, time and date. Reportedly according to ER physician, patient reported that he fell out of his wheelchair and started having right-sided chest pain. He denied prodromal symptoms such as chest pain, shortness of breath, dizziness or lightheadedness. He did report occasional mild shortness of breath with activity. He denied cough or sputum production. He denied abdominal pain, nausea or vomiting. He denied constipation, black stools or hematochezia. He denied hematuria but reported urine dribbling. He had a history of CAD status post CABG and he has been on aspirin, statins, nitrates and lisinopril. He has history of type 2 diabetes mellitus and he has been on Lantus and pre-meal Humalog and his blood sugar has been under fair control. He has history of paroxysmal atrial fibrillation and he has been on Cardizem for rate control but he was not on anticoagulation because of chronic anemia. He had a history of paroxysmal ventricular tachycardia status post ICD. In the emergency department, his vital signs were stable. His routine blood work was remarkable for hemoglobin of 7.1 g/dL, BUN of 33, creatinine is 1.49. EKG revealed normal sinus rhythm, no acute ischemic changes. Urinalysis revealed clear urine, negative for nitrite, there was only 25 leukocyte esterase, there was 0-5 WBCs and rare bacteria seen. Chest x-ray revealed nondisplaced fractures of the right ninth, 10th and 11th ribs, no acute infiltrate or consolidation. CT scan brain showed no acute infarct or hemorrhage. Patient complained of left shoulder pain for which x-ray of the left shoulder done and revealed joint space narrowing of the left glenohumeral joint with calcific tendinitis. Patient is being admitted for debility, recurrent falls, acute kidney injury, acute on chronic anemia and acute traumatic right 9, 10, 11 rib fractures. Past Medical History Past Medical History (Chronic Problems): Chronic Problems (Last Reviewed 03/06/20 @ 04:[address] Vick Gay MD) Implantable cardioverter-defibrillator (ICD) at end of battery life (Chronic) Nonrheumatic aortic (valve) stenosis (Chronic) Paroxysmal atrial fibrillation (Chronic) Essential hypertension (Chronic) Atherosclerotic heart disease of [place] coronary artery without angina pectoris (Chronic) CABG x4- MONTERO to LAD, EPIFANIO to the Distal RCA, Right Radial Artery to the OM branch of CX, and Reverse SVG from the aorta to the Distal RCA 08/17/01 Aortocoronary bypass status (Chronic ~08/17/01) CABG x4- MONTERO to LAD, EPIFANIO to the Distal RCA, Right Radial Artery to the OM branch of CX, and Reverse SVG from the aorta to the Distal RCA 08/17/01 Hyperlipidemia (Chronic) Carotid bruit (Chronic) Long-term use of high-risk medication (Chronic) Paroxysmal ventricular tachycardia (Chronic) Implantable cardioverter-defibrillator (ICD) in situ (Chronic ~10/23/11) Type 2 diabetes mellitus (Chronic) Medical History: Medical History (Last Reviewed 03/06/20 @ 04:[address] Vick Gay MD) Nonrheumatic aortic (valve) stenosis (Chronic) I35.0 Paroxysmal atrial fibrillation (Chronic) I48.0 Essential hypertension (Chronic) I10 Atherosclerotic heart disease of [place] coronary artery without angina pectoris (Chronic) I25.10 CABG x4- MONTERO to LAD, EPIFANIO to the Distal RCA, Right Radial Artery to the OM branch of CX, and Reverse SVG from the aorta to the Distal RCA 08/17/01 Hyperlipidemia (Chronic) E78.5 Carotid bruit (Chronic) R09.89 Long-term use of high-risk medication (Chronic) Z79.899 Paroxysmal ventricular tachycardia (Chronic) I47.2 Type 2 diabetes mellitus (Chronic) E11.9 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 Parkinsons disease G20 Atrial flutter (Inactive) I48.92 Hypertension (Inactive) I10 Allergies Iodine and Iodide Containing Produc Allergy (Verified 04/27/20 13:53) Shortness of breath simvastatin Adverse Reaction (Verified 04/27/20 13:53) Other Home Medications: Ambulatory Orders Medication Instructions Recorded Atorvastatin Calcium [Lipitor] 20 mg PO QHS 09/27/14 Diltiazem HCl [Diltiazem 24Hr ER 180 mg PO DAILY 09/27/14 (Cd)] Insulin Aspart [Novolog Flexpen] 5 units SC BREAKFAST 09/27/14 Insulin Aspart [Novolog Flexpen] 6 units SC LUNCH 09/27/14 Insulin Aspart [Novolog Flexpen] 7 units SC DINNER 09/27/14 Insulin Glargine [Lantus SoloStar 26 units SC QHS 09/27/14 Pen] Lisinopril [Zestril] 5 mg PO DAILY 09/27/14 buPROPion tablets [Wellbutrin 150 mg PO DAILY 09/27/14 tablets] hydrOXYzine tablet [Atarax tablet] 10 mg PO TID PRN PRN 09/27/14 metFORMIN HCl [Glucophage] 500 mg PO TIDCM 09/27/14 aspirin 325 mg tablet 325 mg PO QDAY 01/12/18 carbidopa 25 mg-levodopa 250 mg 2 tab PO 4X/DAY tab 01/12/18 tablet gabapentin 600 mg tablet 600 mg PO BID 01/12/18 calcium citrate 315 mg-vitamin D3 1 tab PO DAILY 10/22/18 250 unit tablet ferrous sulfate 325 mg (65 mg 325 mg PO TID tab 10/22/18 iron) tablet isosorbide mononitrate 60 mg 30 mg PO DAILY tab 10/22/18 tablet,extended release 24 hr sertraline 100 mg tablet 150 mg PO DAILY tab 10/22/18 Acetaminophen [Tylenol Tablet] 650 mg PO Q6H PRN PRN tab 11/25/18 Albuterol Aerosols [Ventolin 2.5 mg INHALATION Q4HWA.RT 11/25/18 Aerosols] vial.neb. Ipratropium/Albuterol Sulfate 3 ml INHALATION Q6HWA.RT ampul.neb 11/25/18 [Duoneb] Ascorbic Acid [Vitamin C] 500 mg PO DAILY 02/07/20 Entacapone [Comtan] 200 mg PO 4X/DAY 02/07/20 Famotidine 20 mg PO QHS 02/07/20 Omeprazole 40 mg PO BID 02/07/20 Insulin Glargine [Lantus SoloStar 10 units SUBCUT BREAKFAST pen 02/09/20 Pen] levothyroxine 137 mcg tablet 175 mcg PO DAILY tab 03/24/20 Cephalexin [Keflex] 500 mg PO Q6 #28 cap 04/27/20 Mupirocin [Bactroban] 1 applic TOPICAL TID #1 tube 04/27/20 Surgical History: Surgical History (Last Reviewed 03/06/20 @ 04:[address] Vick Gay MD) Aortocoronary bypass status (Chronic) Onset Date: ~08/17/01 Z95.1 CABG x4- MONTERO to LAD, EPIFANIO to the Distal RCA, Right Radial Artery to the OM branch of CX, and Reverse SVG from the aorta to the Distal RCA 08/17/01 Implantable cardioverter-defibrillator (ICD) in situ (Chronic) Onset Date: ~10/23/11 Z95.810 History of appendectomy Z90.49 History of cardiac radiofrequency ablation Onset Date: ~06/2003 Z98.890 History of orchiectomy, unilateral Z90.79 History of tonsillectomy Z90.89 Surgical History: coronary bypass surgery Psychiatric History: No pertinent psych hx Lives: Alone Smoking Status: Never smoker Alcohol: None Drugs: None - *Family History Maternal Family History: Family History (Last Reviewed 10/01/20 @ 11:[address] Darren Chou MD) Father CAD (coronary artery disease) Myocardial infarction Mother CAD (coronary artery disease) Sister Diabetes Sister CAD (coronary artery disease) Hx of CABG Review of Systems Constitutional: Reports: Weakness, Fatigue. Denies: Anorexia, Chills, Fever Eyes: Denies: Blurred vision, Double vision, Drainage, Vision Change HEENT: Denies: Difficulty Hearing, Ear Pain, Eye Pain, Nasal Congestion, Sore Throat Cardiovascular: Reports: Chest Pain - Right lateral chest pain.. Denies: Chest Pressure, Chest Tightness, Heaviness, Palpitations, Syncope Respiratory: Reports: Shortness of Breath. Denies: Cough, Pleuritic Pain, Sputum production Gastrointestinal: Denies: Abdominal Pain, Constipation, Diarrhea, Nausea, Vomiting Genitourinary: Denies: Dysuria, Frequency, Hematuria Musculoskeletal: Reports: Shoulder Pain. Denies: Arm Pain, Back Pain, Foot Pain Skin: Denies: Dryness, Rash Neurological: Denies: Balance problems, Blurred vision, Double vision, Change in Speech, Slurred speech, Confusion, Headaches, Incoordination, Numbness Psychiatric: Denies: Anxiety, Depression Endocrine: Denies: Change in Body Habitus, Polydipsia, Polyuria VTE Information - Inpt Only VTE Present on Admission: No VTE Mechan Device Prophylaxis: SCD's VTE Pharm Prophylaxis ordered?: No Patient Problems: Active and Suspected Problems (Last Reviewed 03/06/20 @ 04:[address] Vick Gay MD) Acute on chronic anemia (Acute) Rib fracture (Acute) Acute kidney injury (Acute) - Physical Exam Vitals/I&O's: Vital Signs Temp Pulse Resp BP Pulse Ox 97.4 F L 74 16 145/64 H 96 06/01/20 09:02 06/01/20 09:02 06/01/20 09:02 06/01/20 09:02 06/01/20 09:02 Oxygen Delivery Method Room Air Weight: 163 lb 9.328 oz Body Mass Index (BMI) 25.6 Finger Stick Blood Glucose 132 General: Alert, Oriented x3, Cooperative, No apparent distress HEENT: Atraumatic, PERRLA, EOMI, Normocephalic Oral: Moist Mucosa, No Gingival or Mucosal Lesions/ Ulcerations Neck: Supple, No JVD, Negative Carotid Bruits, Trachea Midline, Thyroid Normal Size and Texture Lungs: Clear to auscultation, Normal air movement, No rhonchi, No wheeze, No rales, Diminished Cardiovascular: Regular rate, Regular Rhythm, Normal S1, Normal S2, PMI Normal Abdomen: Bowel Sounds Present, Soft, Non Tender, Non-Distended, No Hepato-splenomegaly Extremities: No clubbing, No cyanosis, Edema - Trace edema. Skin: No rashes, No breakdown, - - Multiple skin bruises on both upper and lower extremities. Lymphatic: No Cervical, Supraclavicular, or Inguinal Adenopathy Neurological: Cranial nerves II-XII grossly intact, Motor Exam 5/5 strength throughout Psych/Mental Status: Normal Affect, Appropriate Laboratory Results 06/01/20 09:15: WBC 7.7, RBC 2.62 L, Hgb 7.1 L, Hct 23.6 L, MCV 90.1, MCH 27.1, MCHC 30.1 L, RDW Std Deviation 62.1 H, RDW Coeff of Mat 19.1 H, Plt Count 449, MPV 8.5, Immature Gran % (Auto) 0.500, Neut % (Auto) 82.8 H, Lymph % (Auto) 5.7 L, [place] % (Auto) 8.9, Eos % (Auto) 1.8, Baso % (Auto) 0.3, Absolute Neuts (auto) 6.4, Absolute Lymphs (auto) 0.44 L, Nucleated RBC % 0, Differential Comment SCANNED 06/01/20 09:15: Sodium 136, Potassium 5.1, Chloride 106, Carbon Dioxide 24.0, Anion Gap 6, BUN 33 H, Creatinine 1.49 H, Estim Creat Clear Calc 39.43, Est GFR (MDRD) Af Amer 59 L, Est GFR (MDRD) Non-Af 49 L, BUN/Creatinine Ratio 22.1 H, Glucose 117 H, Calcium 8.8 06/01/20 09:15: Total Creatine Kinase 254 06/01/20 09:47: POC Glucose 132 H 06/01/20 09:50: Urine Color Yellow, Urine Clarity Clear, Urine pH 5.0, Ur Specific [place] 1.020, Urine Protein 30 H, Urine Glucose (UA) Normal, Urine Ketones 15 H, Urine Occult Blood 10 H, Urine Nitrite Negative, Urine Bilirubin Negative, Urine Urobilinogen Normal, Ur Leukocyte Esterase 25 H, Urine RBC 0 SEEN, Urine WBC 0-5 SEEN, Ur Squamous Epith Cells 0 SEEN, Urine Bacteria RARE, Urine Mucus 0 SEEN Clinical Impression(s) from Imaging Studies Ribs w/Chest X-Ray 06/01/20 09:10 IMPRESSION: RIBS: Nondisplaced fractures of the right ninth 10th and 11th ribs. Findings there is a small right pleural effusion with scarring. CHEST: Normal x-ray examination of the chest. Electronically Signed: Charles Steen, at 10:00 EDT , Service support , Shoulder X-Ray 06/01/20 09:11 IMPRESSION: Joint space narrowing of the glenohumeral joint with evidence of rotator cuff disease. Calcific tendinitis. Electronically Signed: Charles Steen, at 9:58 EDT , Service support , Brain CT 06/01/20 09:20 IMPRESSION: Chronic involutional changes of the brain. Electronically Signed: Charles Steen, at 9:58 EDT , Service support , Assessment/Plan All Active Problems (Last Reviewed 03/06/20 @ 04:[address] Vick Gay MD) Acute on chronic anemia (Acute) Rib fracture (Acute) Acute kidney injury (Acute) This is a 75 years old male patient presented to the emergency room because of fall, found to have right ninth, 10th, 11th rib fractures as well as acute kidney injury and acute on chronic anemia and he is being admitted for treatment and probably will need placement to nursing home facility. #1 acute on chronic anemia: It is normocytic anemia. Hemoglobin has been around 8 g/dL over the last year. Admission hemoglobin is 7.1 g/dL. Patient does have multiple skin bruises, no obvious bleeding. Denied hemoptysis, hematemesis, hematochezia, melena or hematuria. He is not on any anticoagulants. After discussion with the patient about the work-up for anemia, he does not want to pursue any further testing for this anemia but he agreed to blood transfusion at this time. Vitamin B12 and RBC folate was checked back on January, and they were normal. Plan: Admit to [facility] floor, telemetry, gentle IV fluids for hydration, serum iron, TIBC, serum ferritin, check pro time and INR, transfuse 2 units of packed RBCs, repeat CBC and BMP tomorrow morning, start IV Protonix twice daily, PT OT evaluation and treatment. #2 acute kidney injury: Likely prerenal secondary to dehydration. Baseline kidney function has been normal over the last year. Admission BUN was 33 and creatinine is 1.49, most recent creatinine was 0.78. Plan: Gentle IV fluids for hydration, avoid nephrotoxic drugs, input output chart, repeat BMP tomorrow morning. #3 acute traumatic right ninth, 10th, 11th rib fractures: Chest x-ray reviewed. Plan for pain control with IV morphine PRN, OxyIR PRN for pain, incentive spirometer, ambulate. #4 physical debility/functional decline/falls: Patient lives alone at home. Patient's daughter mentioned that they have been trying to get him into penitentiary but patient was reluctant. Plan: PT OT evaluation and treatment, patient probably will need placement to nursing home facility. #5 CAD status post CABG: Stable, EKG reviewed, no acute changes. Continue aspirin and statins as well as lisinopril when home medication list updated. #6 type 2 diabetes mellitus: ADA diet, Accu-Cheks, insulin sliding scale, continue Lantus and NovoLog, hold metformin, check hemoglobin A1c. #7 history of paroxysmal ventricular tachycardia: Status post ICD, blood pressure and heart rate are stable, plan to monitor. #8 paroxysmal atrial fibrillation: At this time, rate is controlled, continue Cardizem for rate control. Patient is not on anticoagulation. #9 hypertension: Blood pressure stable, continue home medications when home decrease list updated. #10 hypothyroidism: TSH was normal on March,, continue levothyroxine. #11 Parkinson's disease: Continue carbidopa levodopa and entacapone 1 ho medication list updated. #12 hyperlipidemia: Continue statins. #13 CODE STATUS: DNR CCA, no intubation. Discussed with the patient and he clearly mentioned that he does not want any type of resuscitation, denied endotracheal intubation, mechanical ventilation and CPR, denied chest compressions. I spoke with the patient's daughter over the phone and she is in agreement with this. #14 DVT prophylaxis: SCDs for now. This note was generated with [employer] dictation software. It may contain incorrect words, spelling, and punctuation that were not noted in checking the note before signing. Inpatient E&M: 13525 Init Hosp L3
[2020-06-01] MEDS: 0.9% Normal Saline 1,000 ML 75 ML IV (12:54)
[2020-06-01 13:31] LABS: Hemoglobin A1c 6.4 % (3.8-5.6)
[2020-06-01 13:34] LABS: Ferritin 118 ng/mL (26-388); Iron 21 ug/dL (65-175); Iron Binding Capacity,Total 244 ug/dL (250-450); PERCENT IRON SATURATION 8.6 % (15.0-55.0)
[2020-06-01 13:38] LABS: International Normalized Ratio 1.4; Prothrombin Time (Protime)PT. 16.6 SECONDS (11.7-14.9)
--- NOTE | 2020-06-01 14:28 | CASEMGMT ---
RN CM Assessment Note Intro role of CM to patient in room. Patient is sleepy, but awakens. Discussed transfer to [facility]. Pt declined, Declination to [place] Form reviewed and patient signed. Explained that hospitalization would be covered under his Raymundo BRUCE. form faxed to the [place]. -Pt agreed to have RN CM call daughter to discuss dc planning. -Call to Renay Sullivan, daughter. Per Renay, patient has been declining, has many falls at home. He was set up to go to the [facility] recently, however refused at the last minute. Patient has a private pay aide through [facility] 4 hours/day, 5 days/week, but they are cancelling due to the fall risk unless patient has 24/7 care at home. This is cost prohibitive for the patient, so patient will not be able to return home and have assistance. Daughter voiced frustration that patient is not safe @ home, but refused to go to Assisted Living when it was arranged. Both daughters cannot provide 24/7 care for the patient at home. -Daughter will contact [facility] to see if room is still available. She states her sister works @ [facility], and patient may need to go there for short term Rehab prior to dc to Assisted Living. Social Work consult: updated on above and dc plan either Assisted Living or SNF on discharge. Presentation: weakness falls, rib fracture PCP: Dr. Goldberg Insurance: [facility], Raymundo BRUCE SR ADV Preferred Pharmacy: [facility] Prescription Benefit: yes LNOK: Daughters Christel and Renay Living Arrangements: Patient lives alone in 3 story home with bed and bath on main floor, 4 steps and railing to enter the home. Tranportation: family DME: Patient has shower chair, raised toilet, hospital bed, grab bars, walker, wheelchair, and medical alert. HHC: past- [place] [facility]: [facility]- past Patient DC Goals: undetermined DC Plan: Assisted Living or SNF Ramu BARRETT RN ACM
--- NOTE | 2020-06-01 15:43 | NURSING ---
Dr. Goldberg's office called at this time to get home med list faxed over.
--- NOTE | 2020-06-01 16:12 | CHAPLAIN ---
Type of Pastoral Visit ___ Initial Visit ___ Follow-up Visit ___ On-call Visit ___ General Patient Visit ___ Spiritual Assessment ___ Family Conference ___ Bereavement ___ Rapid Response ___ Code Blue _x__ Other (describe below) Pastoral Care Referral From _x__ Patient ___ Family ___ Nurse ___ Physician ___ Subgrade Tester ___ Car Repairer Apprentice ___ Other (describe below) Sacrament/Intervention ___ Active listening ___ Anointing ___ Spiritism ___ Bereavement ___ Communion ___ Candice exploration ___ ___ Life review ___ Prayer ___ Reconciliation ___ Sacrament of Sick ___ Supportive presence ___ Wedding ___ Other (describe below) Pastoral Comments patient is sleeping and does not arouse to his name; left a calling card
[2020-06-01 17:35] LABS: Bedside Glucose 114 mg/dL (70-110)
[2020-06-01] MEDS: Ipratropium/Albuterol Sulfate 3 ML AMPUL.NEB INHALATION (19:00)
[2020-06-01] MEDS: Atorvastatin Calcium 20 MG Tablet PO (21:59)
[2020-06-01] MEDS: Gabapentin 100 MG Capsule 200 MG PO (21:59)
[2020-06-01] MEDS: Famotidine 20 MG Tablet PO (21:59)
[2020-06-01 22:21] LABS: Bedside Glucose 114 mg/dL (70-110)
[2020-06-01] MEDS: Acetaminophen 325 MG Tablet 650 MG PO (22:25)
[2020-06-01] MEDS: Carbidopa/Levodopa 25/250 Tablet PO (22:39)
[2020-06-02] VITALS (16 sets, daily range): BP systolic 118–163; BP diastolic 48–75; PULSE 70–91; RESP 16–18; TEMP 36.2–37.1; O2SAT 95–99
[2020-06-02] MEDS: Senna/Docusate Sodium 1 Tablet 2 TABLET PO (00:37)
[2020-06-02] MEDS: Ipratropium/Albuterol Sulfate 3 ML AMPUL.NEB INHALATION ×3 (01:10→19:01)
[2020-06-02 06:07] LABS: Absolute Lymphocyte Count 0.45 X10^3/uL (0.83-4.51); Absolute Neutrophil Count 4.7 X10^3/uL (2.0-7.7); Basophil# 0.02 X10^3/uL; Basophil% 0.3 % (0-1); Eosinophil# 0.08 X10^3/uL; Eosinophils% 1.3 % (0-5); Hematocrit 29.3 % (40-54); Hemoglobin 9.1 g/dL (13.0-16.5); Lymphocyte # 0.45 X10^3/ul (4.0); Lymphocyte % 7.6 % (19-41); Mean Corp Hgb Conc 31.1 g/dL (32-36); Mean Corpuscular Hgb 28.3 pg (27.0-32.0); Mean Platelet Vol. 8.2 fl (6.2-12.0); Monocyte# 0.61 X10^3/uL; Monocyte% 10.3 % (0-10); NRBC Flagged by Analyzer 0 % (0-5); Neutrophil # 4.73 X10^3/uL (2.7-7.7); Neutrophil % 79.8 % (47-70); POSITIVE DIFFERENTIAL YES; Platelet Count 410 K/mm3 (150-450); RBC Distribution Width CV 18.2 % (11.6-14.6); RBC Distribution Width SD 60.2 fl (35.1-43.9); Red Blood Count 3.22 M/mm3 (4.6-6.2); White Blood Count 5.9 K/mm3 (4.4-11.0)
[2020-06-02 06:08] LABS: Differential Indicated SCAN CRITERIA MET
[2020-06-02 06:41] LABS: Anion Gap 5 (5-15); BUN 18 mg/dL (7-18); BUN/Creat Ratio 25.3 RATIO (10-20); Calcium,Total 8.5 mg/dL (8.5-10.1); Chloride 113 mmol/L (98-107); Creatinine, Serum 0.71 mg/dL (0.70-1.30); EST Glomerular Filtration Rate 114 mL/min (>60); Est Glom Filt Rate - Afr Amer 139 mL/min (>60); Estimated Creatinine Clearance 52.62 ml/min; Glucose 106 mg/dL (74-106); Potassium 4.5 mmol/L (3.5-5.1); Sodium Level 140 mmol/L (136-145)
[2020-06-02] MEDS: 0.9% Saline Lock 10 ML Syringe IV (06:43)
[2020-06-02] MEDS: Levothyroxine 175 MCG Tablet PO (06:43)
[2020-06-02 06:51] LABS: Bedside Glucose 108 mg/dL (70-110)
[2020-06-02 06:55] LABS: Differential Comment SCANNED
[2020-06-02 06:56] LABS: Ovalocyte RARE; Schistocytes RARE
[2020-06-02] MEDS: Aspirin 81 MG TAB.CHEW PO (07:44)
[2020-06-02] MEDS: Cyanocobalamin 500 MCG Tablet 1000 MCG PO (07:45)
[2020-06-02] MEDS: Glucerna Shake 120 ML LIQUID PO ×3 (07:47→16:49)
--- NOTE | 2020-06-02 07:49 | PCM.PROGNOTE ---
Patient Problems: Active and Suspected Problems (Last Reviewed 03/06/20 @ 04:[address] Vick Gay MD) Acute on chronic anemia (Acute) Rib fracture (Acute) Acute kidney injury (Acute) Subjective: Chief complaint: Follow-up after admission for acute on chronic anemia, acute kidney injury, acute traumatic right 9, 10 and 11 rib fractures. Patient seen and examined. No acute events overnight this morning, patient mentioned that he is feeling much better. He is more energetic, shortness of breath has been improving although it was mild. Denied any significant complaints otherwise. He tolerated BiPAP overnight that he has been on for sleep apnea at home. His vital signs are stable. - Physical Exam Vitals/I&O's: Vital Signs Temp Pulse Resp BP Pulse Ox 97.2 F L 78 16 163/75 H 98 06/02/20 06:46 06/02/20 06:57 06/02/20 06:57 06/02/20 06:46 06/02/20 06:57 Oxygen Flow Rate (L/min) 2 Oxygen Delivery Method Room Air Weight: 159 lb 6.307 oz Body Mass Index (BMI) 27.3 Finger Stick Blood Glucose 132 Intake and Output for Last 24 Hours 05/31/20 06/01/20 06/02/20 23:59 23:59 23:59 Intake Total 1010 / 1210 200 / 200 Output Total 400 / 400 Balance 1010 / 810 -200 / -200 General: Alert, Oriented x3, Cooperative, No apparent distress HEENT: Atraumatic, PERRLA, EOMI, Normocephalic Oral: Moist Mucosa, No Gingival or Mucosal Lesions/ Ulcerations Neck: Supple, No JVD, Negative Carotid Bruits, Trachea Midline, Thyroid Normal Size and Texture Lungs: Clear to auscultation, Normal air movement, No rhonchi, No wheeze, No rales, Diminished Cardiovascular: Regular rate, Regular Rhythm, Normal S1, Normal S2, PMI Normal, Murmur Abdomen: Bowel Sounds Present, Soft, Non Tender, Non-Distended, No Hepato-splenomegaly Extremities: No clubbing, No cyanosis, Edema - Trace edema. Skin: No rashes, No breakdown, - - Multiple skin bruises. Lymphatic: No Cervical, Supraclavicular, or Inguinal Adenopathy Neurological: Cranial nerves II-XII grossly intact, Neuro grossly intact Psych/Mental Status: Normal Affect, Appropriate, Alert and oriented to time, place, person, mood and affect Laboratory Results 06/01/20 09:15: WBC 7.7, RBC 2.62 L, Hgb 7.1 L, Hct 23.6 L, MCV 90.1, MCH 27.1, MCHC 30.1 L, RDW Std Deviation 62.1 H, RDW Coeff of Mat 19.1 H, Plt Count 449, MPV 8.5, Immature Gran % (Auto) 0.500, Neut % (Auto) 82.8 H, Lymph % (Auto) 5.7 L, [place] % (Auto) 8.9, Eos % (Auto) 1.8, Baso % (Auto) 0.3, Absolute Neuts (auto) 6.4, Absolute Lymphs (auto) 0.44 L, Nucleated RBC % 0, Differential Comment SCANNED 06/01/20 09:15: Sodium 136, Potassium 5.1, Chloride 106, Carbon Dioxide 24.0, Anion Gap 6, BUN 33 H, Creatinine 1.49 H, Estim Creat Clear Calc 39.43, Est GFR (MDRD) Af Amer 59 L, Est GFR (MDRD) Non-Af 49 L, BUN/Creatinine Ratio 22.1 H, Glucose 117 H, Calcium 8.8 06/01/20 09:15: Total Creatine Kinase 254 06/01/20 09:15: Hemoglobin A1c 6.4 H 06/01/20 09:47: POC Glucose 132 H 06/01/20 09:50: Urine Color Yellow, Urine Clarity Clear, Urine pH 5.0, Ur Specific [place] 1.020, Urine Protein 30 H, Urine Glucose (UA) Normal, Urine Ketones 15 H, Urine Occult Blood 10 H, Urine Nitrite Negative, Urine Bilirubin Negative, Urine Urobilinogen Normal, Ur Leukocyte Esterase 25 H, Urine RBC 0 SEEN, Urine WBC 0-5 SEEN, Ur Squamous Epith Cells 0 SEEN, Urine Bacteria RARE, Urine Mucus 0 SEEN 06/01/20 13:06: PT 16.6 H, INR 1.4 06/01/20 13:06: Iron 21 L, TIBC 244 L, Iron Saturation 8.6 L, Ferritin 118 06/01/20 13:06: Blood Type A POSITIVE, Antibody Screen NEGATIVE, Crossmatch See Detail 06/01/20 17:31: POC Glucose 114 H 06/01/20 22:07: POC Glucose 114 H 06/02/20 05:52: WBC 5.9, RBC 3.22 L, Hgb 9.1 L, Hct 29.3 L, MCV 91.0, MCH 28.3, MCHC 31.1 L, RDW Std Deviation 60.2 H, RDW Coeff of Mat 18.2 H, Plt Count 410, MPV 8.2, Immature Gran % (Auto) 0.700, Neut % (Auto) 79.8 H, Lymph % (Auto) 7.6 L, [place] % (Auto) 10.3 H, Eos % (Auto) 1.3, Baso % (Auto) 0.3, Absolute Neuts (auto) 4.7, Absolute Lymphs (auto) 0.45 L, Nucleated RBC % 0, Differential Comment SCANNED, Ovalocytes RARE, Schistocytes RARE 06/02/20 05:52: Sodium 140, Potassium 4.5, Chloride 113 H, Carbon Dioxide 22.0, Anion Gap 5, BUN 18, Creatinine 0.71, Estim Creat Clear Calc 52.62, Est GFR (MDRD) Af Amer 139, Est GFR (MDRD) Non-Af 114, BUN/Creatinine Ratio 25.3 H, Glucose 106, Calcium 8.5 06/02/20 06:42: POC Glucose 108 Current Medications Acetaminophen (Tylenol) 650 mg PO Q6H PRN PRN PRN Reason: Pain Score 1-10/Temp > 100.7 F Last Admin: 06/01/20 22:25 Dose: 650 mg Documented by: Albuterol Sulfate (Ventolin Aerosols) 2.5 mg INHALATION Q4H PRN PRN PRN Reason: Shortness of Breath/Wheezing Albuterol/Ipratropium (Duoneb) 3 ml INHALATION Q6H.RT [facility] Last Admin: 06/02/20 06:57 Dose: 3 ml Documented by: Ascorbic Acid (Vitamin C) 500 mg PO DAILY [facility] Aspirin ([facility]spirin, Baby) [facility] Last Admin: 06/02/20 07:44 Dose: 81 mg Documented by: Atorvastatin Calcium (Lipitor) 20 mg PO QHS [facility] Last Admin: 06/01/20 21:59 Dose: 20 mg Documented by: Bupropion HCl (Wellbutrin Sr (150mg Tablets)) 150 mg PO DAILY [facility] Calcium/Vitamin D (Os-Severiano 500mg + D) 1 tablet PO DAILY [facility] Carbidopa/Levodopa (Sinemet) 2 tablet PO 4X/DAY [facility] Last Admin: 06/01/20 22:39 Dose: 2 tablet Documented by: Cyanocobalamin (Vitamin B12) 1,000 mcg PO DAILY@0800 [facility] Last Admin: 06/02/20 07:45 Dose: 1,000 mcg Documented by: Diltiazem HCl (Cardizem Cd) 180 mg PO DAILY [facility] Entacapone (Comtan) 200 mg PO 4X/DAY [facility] Last Admin: 06/01/20 21:58 Dose: 200 mg Documented by: Famotidine (Pepcid) 20 mg PO QHS [facility] Last Admin: 06/01/20 21:59 Dose: 20 mg Documented by: Ferrous Sulfate (Ferrous Sulfate) 325 mg PO DAILY@1200 [facility] Gabapentin (Neurontin) 200 mg PO BID [facility] Last Admin: 06/01/20 21:59 Dose: 200 mg Documented by: Hydroxyzine HCl (Atarax Tablet) 10 mg PO TID PRN PRN PRN Reason: ANXIETY Pantoprazole Sodium 40 mg/ (Sodium Chloride) 110 mls @ 330 mls/hr IV Q12 [facility] Last Infusion: 06/01/20 23:00 Dose: Infused Documented by: Influenza Virus Vaccine Quadrival (Flucelvax /Fluzone ) 0.5 ml IM .ONCE ONE Stop: 06/02/20 10:01 Insulin Human Lispro (Humalog Kwikpen (Bkc)) 0 unit SC [facility]; Protocol Last Admin: 06/02/20 06:51 Dose: Not Given Documented by: Isosorbide Mononitrate (Imdur) 30 mg PO DAILY [facility] Labetalol HCl (Trandate) 10 mg IV Q4H PRN PRN PRN Reason: SBP > 160 OR DBP > 120 Levothyroxine Sodium (Synthroid) 175 mcg PO DAILY@0600 [facility] Last Admin: 06/02/20 06:43 Dose: 175 mcg Documented by: Morphine Sulfate () 1 mg IV Q3H PRN PRN PRN Reason: Pain Score 6-10/10 Nutritional Formula (Lactose Free) (Glucerna Shake) 120 ml PO TIDCM [facility] Last Admin: 06/02/20 07:47 Dose: 120 ml Documented by: Ondansetron HCl (Zofran) 4 mg IV Q8H PRN PRN PRN Reason: NAUSEA/VOMITING Oxycodone HCl (Oxyir) 5 mg PO Q6H PRN PRN PRN Reason: Pain Score 4-5/10 Senna/Docusate Sodium (Senokot-S, Katelynn-Colace) 2 tablet PO BID PRN PRN PRN Reason: Constipation Last Admin: 06/02/20 00:37 Dose: 2 tablet Documented by: Sertraline HCl (Zoloft) 150 mg PO DAILY [facility] Sodium Chloride () 10 - 40 ml IV UD PRN PRN Reason: SALINE FLUSH Last Admin: 06/02/20 06:43 Dose: 10 ml Documented by: Medical Necessity - Tobacco Use Smoking Status: Never smoker Assessment/Plan All Active Problems (Last Reviewed 03/06/20 @ 04:[address] Vick Gay MD) Acute on chronic anemia (Acute) Rib fracture (Acute) Acute kidney injury (Acute) This is a 75 years old male patient presented to the emergency room because of fall, found to have right ninth, 10th, 11th rib fractures as well as acute kidney injury and acute on chronic anemia and he is being admitted for treatment and probably will need placement to shelter facility. #1 acute on chronic anemia: Unclear etiology. Patient denied bleeding from body orifices, he does have multiple skin bruises. He refused anemia work-up including upper EGD and colonoscopy but agreed to blood transfusion. He received a total of 2 weeks of packed RBCs. Today's hemoglobin is 9.1 g/dL. Platelet count is normal. INR is 1.4, patient is not on anticoagulation. Vitamin B12 and RBC folate was checked back on January, and they were normal. Plan: Discontinue IV fluids, discontinue IV Protonix, start p.o. Protonix, repeat H&H tomorrow morning, ambulate, PT OT evaluation and treatment. #2 acute kidney injury: Likely prerenal secondary to dehydration. Baseline kidney function has been normal over the last year. Patient is on IV fluids. Today's BUN is 18 and creatinine is 0.71, improved and it is back to normal. Plan to discontinue IV fluids, encourage p.o. intake. #3 acute traumatic right ninth, 10th, 11th rib fractures: Chest x-ray reviewed. He is on IV morphine PRN, OxyIR PRN for pain, incentive spirometer, ambulate. Pain is well controlled. Encourage incentive spirometer. #4 physical debility/functional decline/falls: Patient lives alone at home. Today, patient mentioned that he realized how frequent he has been falling at home and he is more open on going to shelter facility. Plan for PT OT, social security benefits interviewer and rehabilitation case coordinator evaluation. #5 CAD status post CABG: Stable, EKG reviewed, no acute changes. Continue aspirin, Lipitor, isosorbide mononitrate and resume lisinopril. #6 type 2 diabetes mellitus: Blood sugar has been stable. He is only on sliding scale and Accu-Cheks. Hemoglobin A1c was 6.4%. Requested nursing staff to update insulin dosage. #7 history of paroxysmal ventricular tachycardia: Status post ICD, blood pressure and heart rate are stable, plan to monitor. #8 paroxysmal atrial fibrillation: At this time, rate is controlled, continue Cardizem for rate control. Patient is not on anticoagulation. #9 hypertension: Blood pressure stable, continue lisinopril, Cardizem and nitrate. #10 hypothyroidism: TSH was normal on March,, continue levothyroxine. #11 Parkinson's disease: Continue carbidopa levodopa and entacapone. #12 hyperlipidemia: Continue statins. #13 CODE STATUS: DNR CCA, no intubation. Discussed with the patient and his daughter agreed. #14 DVT prophylaxis: SCDs for now. This note was generated with [employer] dictation software. It may contain incorrect words, spelling, and punctuation that were not noted in checking the note before signing. Inpatient E&M: 85537 Subs Hosp L2
[2020-06-02] MEDS: Lidocaine 5% Patch 1 PATCH TOPICAL (09:53)
[2020-06-02] MEDS: Pantoprazole Sodium 40 MG Tablet PO ×2 (09:54→22:22)
[2020-06-02] MEDS: Acetaminophen 325 MG Tablet 650 MG PO (09:54)
[2020-06-02] MEDS: Sertraline 50 MG Tablet 150 MG PO (09:55)
[2020-06-02] MEDS: dilTIAZem CD 180 MG Capsule PO (09:55)
[2020-06-02] MEDS: Gabapentin 100 MG Capsule 200 MG PO ×2 (09:55→22:22)
[2020-06-02] MEDS: Isosorbide Mononitrate 30 MG Tablet PO (09:55)
[2020-06-02] MEDS: Carbidopa/Levodopa 25/250 Tablet PO ×4 (09:56→22:22)
[2020-06-02] MEDS: buPROPion (SR) 150 MG Tablet.SA PO (09:56)
[2020-06-02] MEDS: Calcium Carb/Vitamin D 1 TABLET Tablet PO (09:56)
[2020-06-02] MEDS: Ascorbic Acid 500 MG Tablet PO (09:56)
[2020-06-02] MEDS: Lisinopril 5 MG Tablet PO (09:59)
--- NOTE | 2020-06-02 10:40 | CASEMGMT ---
Addendum entered by Angela Zaragoza 06/02/20 11:19: SW Received call back from Christel. Christel states first choice for SNF is [facility] and then transition pt to [facility]. JUNE explained that this worker is not sure if [facility] takes pt's insurance but will call and check. Christel states if [facility] is not able to accept for SNF then the next choice would be [facility]. JUNE placed a call to Violette at [facility]. Violette states [facility] does take pt's insurance, is willing to review referral. JUNE faxed referral to [facility]. Plan: SNF pending acceptance and pre-cert Original Note: Social Work Note SW in to speak with pt to confirm discharge plans. SW introduced self and role at [facility]. Pt is alert and orientated x3, pt states my daughter Christel needs to talk to you. SW spoke with pt regarding SNF. Pt states I don't know if my insurance will cover going back to SNF as I've been there recently. JUNE explained that this worker would need to make a referral to SNF and then they would check pt's insurance coverage. Pt states I would prefer to go to [facility] as Christel works there. Pt then states but can you call Christel first to talk to her about it. SW informed pt that this worker will call Christel and discuss plans. Pt states understanding. JUNE placed a call to pt's daughter Christel and left message to call this worker back. SW waiting for call back. Plan: SNF pending acceptance and pre-cert Angela Zaragoza TOOL LIAISON, PHYSICIAN/INTERNIST
[2020-06-02 11:55] LABS: Bedside Glucose 219 mg/dL (70-110)
[2020-06-02] MEDS: Ferrous Sulfate 325 MG Tablet PO (12:05)
[2020-06-02] MEDS: Insulin Lispro 100 UNIT/ML INSULN.PEN SC ×2 (12:05→16:49)
--- NOTE | 2020-06-02 13:25 | CASEMGMT ---
Addendum entered by Angela Zaragoza 06/02/20 15:17: SW placed HENS, Green sheet, transport form, COVID screening tool on pt's chart in the event pre-cert is obtained. Plan: [facility] pending pre-cert Addendum entered by Angela Zaragoza 06/02/20 14:14: SW faxed negative COVID test, COVID screening tool to [facility]. Original Note: Social Work Note SW received call from Violette at [facility] stating they are able to accept pt and will submit for pre-cert. SW in to speak with pt and updated him that Christel wanted a referral made to [facility] and they are able to accept pt. Pt states understanding, agreeable to [facility]. SW placed a call to Christel and left message regarding acceptance to [facility] pending pre-cert. SW completed convalescent 7000 in HENS. Plan: [facility] pending pre-cert Angela Zaragoza CLINICAL QUALITY ASSURANCE SPECIALIST, PHOTO MASK PROCESSOR
--- NOTE | 2020-06-02 16:19 | CASEMGMT ---
Social Work Note JUNE received call from Violette at [facility] stating pre-cert has been obtained and pt can discharge today. JUNE updated physician. Pt not medically ready for discharge today. JUNE placed a call to [facility] and updated her pt not ready for discharge today. Violette states pre-cert is good all weekend so pt can admit tomorrow or Friday. JUNE updated pt on approval to [facility]. Pt states understanding, gave this worker permission to call Christel to update. Green sheet updated. Charge Nurse updated. JUNE placed a call to Christel and updated her on approval to [facility] and likely discharge tomorrow. Christel states understanding, states she should be able to transport pt. JUNE placed a call to Violette at [facility] and updated her pt's daughter Christel plans on transporting pt tomorrow. Violette states understanding. Plan: [facility] skilled when medically cleared. Angela Zaragoza KNIFE EDGER, SENIOR AGRICULTURAL ASSISTANT
[2020-06-02 16:26] LABS: Bedside Glucose 192 mg/dL (70-110)
[2020-06-02] MEDS: Famotidine 20 MG Tablet PO (22:23)
[2020-06-02] MEDS: Atorvastatin Calcium 20 MG Tablet PO (22:25)
[2020-06-02 22:55] LABS: Bedside Glucose 143 mg/dL (70-110)
[2020-06-03] VITALS (8 sets, daily range): BP systolic 117–139; BP diastolic 50–60; PULSE 68–96; RESP 16–18; TEMP 36.6–37.4; O2SAT 95–100
[2020-06-03] MEDS: Levothyroxine 175 MCG Tablet PO (05:09)
[2020-06-03 06:21] LABS: Hematocrit 29.7 % (40-54); Hemoglobin 9.2 g/dL (13.0-16.5)
[2020-06-03] MEDS: Insulin Lispro 100 UNIT/ML INSULN.PEN SC ×2 (06:21→11:21)
[2020-06-03 06:51] LABS: Bedside Glucose 158 mg/dL (70-110)
[2020-06-03] MEDS: Ipratropium/Albuterol Sulfate 3 ML AMPUL.NEB INHALATION ×2 (07:15→13:31)
[2020-06-03] MEDS: Pantoprazole Sodium 40 MG Tablet PO (08:32)
[2020-06-03] MEDS: Calcium Carb/Vitamin D 1 TABLET Tablet PO (08:32)
[2020-06-03] MEDS: Gabapentin 100 MG Capsule 200 MG PO (08:33)
[2020-06-03] MEDS: Sertraline 50 MG Tablet 150 MG PO (08:34)
[2020-06-03] MEDS: Aspirin 81 MG TAB.CHEW PO (08:34)
[2020-06-03] MEDS: Ascorbic Acid 500 MG Tablet PO (08:34)
[2020-06-03] MEDS: buPROPion (SR) 150 MG Tablet.SA PO (08:34)
[2020-06-03] MEDS: Lisinopril 5 MG Tablet PO (08:35)
[2020-06-03] MEDS: Isosorbide Mononitrate 30 MG Tablet PO (08:36)
[2020-06-03] MEDS: dilTIAZem CD 180 MG Capsule PO (08:36)
[2020-06-03] MEDS: Cyanocobalamin 500 MCG Tablet 1000 MCG PO (08:36)
[2020-06-03] MEDS: Lidocaine 5% Patch 1 PATCH TOPICAL (08:36)
--- NOTE | 2020-06-03 10:40 | PCM.TXEXTCAR ---
- Diet 06/01/20 12:24 Diet: Cardiac - Heart Healthy Food consistency:: Regular Liquid Consistency:: Regular/Thin Diet: Consistent Carb - Calorie Controlled Food consistency:: Regular Liquid Consistency:: Regular/Thin How many daily calories?: 1800 calorie - Routine Orders/Code Status [facility] - Wound(s) RT BACK Wound Type: Abrasion RT ARM Wound Type: Skin Tear bilateral shins Wound Type: Skin Tear - Suggestions for Active Care Change Position every (hours): 3 Hours to sit in a chair: 2 Times a day to sit in chair: 3 - Therapies Weight Bearing: Weight bearing as tolerated Physical Therapy: Eval and Treat Occupational Therapy: Eval and Treat - Problem/Diagnosis (1) Acute on chronic anemia Status: Acute Current Visit: Yes (2) Rib fracture Status: Acute Current Visit: Yes (3) Acute kidney injury Status: Acute Current Visit: Yes (4) Implantable cardioverter-defibrillator (ICD) at end of battery life Status: Chronic Current Visit: No (5) Paroxysmal atrial fibrillation Status: Chronic Current Visit: No (6) Essential hypertension Status: Chronic Current Visit: No (7) Atherosclerotic heart disease of [place] coronary artery without angina pectoris Status: Chronic Comment: CABG x4- MONTERO to LAD, EPIFANIO to the Distal RCA, Right Radial Artery to the OM branch of CX, and Reverse SVG from the aorta to the Distal RCA 08/17/01 Current Visit: No (8) Aortocoronary bypass status Status: Chronic Comment: CABG x4- MONTERO to LAD, EPIFANIO to the Distal RCA, Right Radial Artery to the OM branch of CX, and Reverse SVG from the aorta to the Distal RCA 08/17/01 Current Visit: No (9) Hyperlipidemia Status: Chronic Current Visit: No (10) Paroxysmal ventricular tachycardia Status: Chronic Current Visit: No (11) Type 2 diabetes mellitus Status: Chronic Current Visit: No - Allergies/Procedures Done in Hospital Allergies/Adverse Reactions: Allergies Iodine and Iodide Containing Produc Allergy (Verified 04/27/20 13:53) Shortness of breath simvastatin Adverse Reaction (Verified 04/27/20 13:53) Other - Type of Care/Length of Stay Estimated LOS: Convalescent Care Less Than 30 days Type of Care Needed: Skilled Rehab Potential: Fair Prognosis: Fair - Additional Orders/Day of Discharge H&P will serve as current which was dated: 06/01/20 Day of Discharge: 06/03/20 - Dietary and Speech Recommendations Dietitian Recommendations/Changes: Continue current diet as ordered. Will add glucerna shake TID w/medpass as intake established. - Follow Up Care Primary Care Physician: Roselyn Goldberg MD [Primary Care Provider] - Please follow up with your Primary Care Physician in: 1 week.
[2020-06-03] MEDS: Carbidopa/Levodopa 25/250 Tablet PO ×2 (11:18→14:41)
[2020-06-03] MEDS: Glucerna Shake 120 ML LIQUID PO (11:19)
[2020-06-03] MEDS: Ferrous Sulfate 325 MG Tablet PO (11:39)
[2020-06-03] MEDS: Tamsulosin HCl 0.4 MG Capsule PO (11:39)
[2020-06-03 11:50] LABS: Bedside Glucose 209 mg/dL (70-110)
[2020-06-03 13:06] LABS: Bacteria 0 SEEN /hpf (None Seen); Mucous, Urine 0 SEEN /hpf (<or=2+); Squamous Epithelial Cells - UA 0 SEEN /hpf (0-5)
[2020-06-03 13:07] LABS: Color, Urine Yellow (Yellow); Glucose, Dipstick Normal (Normal); Ketone-Dipstick 5 mg/dl (Negative); Leukocyte Esterase-Dipstick 500 /ul (Negative); Nitrite-Dipstick Negative (Negative); Occult Blood-Urine 250 /ul (Negative); Protein-Dipstick 500 mg/dl (Negative); Specific Gravity, Urine 1.015 (1.002-1.030); Urine Bilirubin Dipstick Negative (Negative); Urine Clarity Cloudy (Clear); Urine Urobilinogen Normal (Normal)
[2020-06-03 13:16] LABS: Red Blood Cells-Urine > 100 SEEN /hpf (0-5); White Blood Cells >100 SEEN /hpf (0-5)
--- NOTE | 2020-06-03 13:20 | PCM.DC.SUM ---
Discharge Date and Diagnosis - Problem List Patient Problems: Active and Suspected Problems (Last Reviewed 03/06/20 @ 04:[address] Vick Gay MD) Acute on chronic anemia (Acute) Rib fracture (Acute) Acute kidney injury (Acute) Date of Admission: 06/01/20 Date of Discharge: 06/03/20 - Primary Discharge Diagnosis Acute Problems: Active Problems (Last Reviewed 03/06/20 @ 04:[address] Vick Gay MD) #1 acute on chronic anemia required blood transfusion, there was no evidence of acute blood loss. #2 acute kidney injury. #3 acute traumatic right ninth, 10th and 11th rib fractures. #4 physical debility/functional decline/frequent falls. #5 suspected benign prostatic hypertrophy. - Secondary Discharge Diagnosis Chronic Problems: Chronic Problems (Last Reviewed 03/06/20 @ 04:[address] Vick Gay MD) Implantable cardioverter-defibrillator (ICD) at end of battery life (Chronic) Nonrheumatic aortic (valve) stenosis (Chronic) Paroxysmal atrial fibrillation (Chronic) Essential hypertension (Chronic) Atherosclerotic heart disease of [place] coronary artery without angina pectoris (Chronic) CABG x4- MONTERO to LAD, EPIFANIO to the Distal RCA, Right Radial Artery to the OM branch of CX, and Reverse SVG from the aorta to the Distal RCA 08/17/01 Aortocoronary bypass status (Chronic ~08/17/01) CABG x4- MONTERO to LAD, EPIFANIO to the Distal RCA, Right Radial Artery to the OM branch of CX, and Reverse SVG from the aorta to the Distal RCA 08/17/01 Hyperlipidemia (Chronic) Carotid bruit (Chronic) Long-term use of high-risk medication (Chronic) Paroxysmal ventricular tachycardia (Chronic) Implantable cardioverter-defibrillator (ICD) in situ (Chronic ~10/23/11) Type 2 diabetes mellitus (Chronic) Hospital Course and Treatment Imaging Results: Clinical Impression(s) from Imaging Studies Ribs w/Chest X-Ray 06/01/20 09:10 IMPRESSION: RIBS: Nondisplaced fractures of the right ninth 10th and 11th ribs. Findings there is a small right pleural effusion with scarring. CHEST: Normal x-ray examination of the chest. Electronically Signed: Charles Steen, at 10:00 EDT , Service support , Shoulder X-Ray 06/01/20 09:11 IMPRESSION: Joint space narrowing of the glenohumeral joint with evidence of rotator cuff disease. Calcific tendinitis. Electronically Signed: Charles Steen, at 9:58 EDT , Service support , Brain CT 06/01/20 09:20 IMPRESSION: Chronic involutional changes of the brain. Electronically Signed: Charles Steen, at 9:58 EDT , Service support , Operations: None Procedures: None Summary of Care Provided: Patient seen and examined on the day of discharge and appeared to be stable to be discharged to assisted facility. He complained of feeling therapeutic and minimal dysuria. He had urine analysis done on admission showed no evidence of UTI. Apparently patient is having benign prostatic hypertrophy. He has been afebrile, no leukocytosis, other vital signs are stable. The patient is a 75 year old M presented to the emergency room because of fall and he was found to have multiple acute medical problems. He had a CT scan brain done on admission and showed no acute findings. He was found to have acute traumatic right ninth, 10th and 11th rib fractures which was treated conservatively with pain medicine and incentive spirometer. He was found to have acute on chronic anemia. Patient does have history of chronic anemia and his hemoglobin has been around 8 g/dL at baseline. On admission, hemoglobin was 7.1 g/dL. Patient refused any type of further work-up for this anemia including upper EGD and colonoscopy. He agreed to blood transfusion. He denied any bleeding from body orifices and there was no evidence of active bleeding during this hospital stay. Patient received a total of units of packed RBCs and hemoglobin was 9.2 g/dL upon discharge. COVID-19 PCR was negative. He was found to have acute kidney injury which was attributed to poor oral intake and treated with IV fluids and his kidney function returned back to normal. Patient has been living alone at home and he has been falling frequently. After discussion with the patient and his daughter, they agreed to have patient go to assisted facility for further physical nutritional therapy. On the day of discharge, patient complained of urine dribbling and minimal dysuria. Urinalysis repeated and revealed cloudy urine, negative for nitrite, there was more than 100 RBCs and more than 100 WBCs and no bacteria seen. I doubt that this patient has acute cystitis and this urinalysis findings and symptoms are probably due to prostate enlargement. Patient was started on ciprofloxacin and Flomax. Patient discharged to assisted facility in a stable medical condition, discharged on his same previous medications without any changes, started on Flomax for prostatic enlargement and ciprofloxacin 500 mg p.o. twice daily for 5 days, recommended follow-up with PCP in 1 week. Patient Problems: Active and Suspected Problems (Last Reviewed 03/06/20 @ 04:[address] Vick Gay MD) Acute on chronic anemia (Acute) Rib fracture (Acute) Acute kidney injury (Acute) - Physical Exam Vitals/I&O's: Vital Signs Temp Pulse Resp BP Pulse Ox 97.9 F 73 16 139/53 H 100 06/03/20 08:25 06/03/20 12:30 06/03/20 08:25 06/03/20 08:25 06/03/20 08:25 Oxygen Flow Rate (L/min) 2 Oxygen Delivery Method Nasal Cannula Weight: 159 lb 6.307 oz Body Mass Index (BMI) 27.3 Finger Stick Blood Glucose 132 Intake and Output for Last 24 Hours 06/01/20 06/02/20 06/03/20 23:59 23:59 23:59 Intake Total 1010 / 1210 2700 / 2700 540 / 540 Output Total 800 / 800 750 / 750 Balance 1010 / 810 1900 / 1900 -210 / -210 General: Alert, Oriented x3, Cooperative, No apparent distress HEENT: Atraumatic, PERRLA, EOMI, Normocephalic Oral: Moist Mucosa, No Gingival or Mucosal Lesions/ Ulcerations Neck: Supple, No JVD, Negative Carotid Bruits, Trachea Midline, Thyroid Normal Size and Texture Lungs: Clear to auscultation, Normal air movement, No rhonchi, No wheeze, No rales, Diminished Cardiovascular: Regular rate, Regular Rhythm, Normal S1, Normal S2, PMI Normal, Murmur Abdomen: Bowel Sounds Present, Soft, Non Tender, Non-Distended, No Hepato-splenomegaly Extremities: No clubbing, No cyanosis, Edema - Trace edema. Skin: No rashes, No breakdown Lymphatic: No Cervical, Supraclavicular, or Inguinal Adenopathy Neurological: Cranial nerves II-XII grossly intact, Neuro grossly intact Psych/Mental Status: Normal Affect, Appropriate Laboratory Results 06/02/20 10:30: COVID-19 ([facility]) Not Detected 06/02/20 16:22: POC Glucose 192 H 06/02/20 22:28: POC Glucose 143 H 06/03/20 05:20: Urine Color Yellow, Urine Clarity Cloudy, Urine pH 6.0, Ur Specific [place] 1.015, Urine Protein 500 H, Urine Glucose (UA) Normal, Urine Ketones 5 H, Urine Occult Blood 250 H, Urine Nitrite Negative, Urine Bilirubin Negative, Urine Urobilinogen Normal, Ur Leukocyte Esterase 500 H, Urine RBC > 100 SEEN, Urine WBC >100 SEEN, Ur Squamous Epith Cells 0 SEEN, Urine Bacteria 0 SEEN, Urine Mucus 0 SEEN 06/03/20 05:45: Hgb 9.2 L, Hct 29.7 L 06/03/20 06:20: POC Glucose 158 H 06/03/20 11:18: POC Glucose 209 H Current Medications Acetaminophen (Tylenol) 650 mg PO Q6H PRN PRN PRN Reason: Pain Score 1-10/Temp > 100.7 F Last Admin: 06/02/20 09:54 Dose: 650 mg Documented by: Albuterol Sulfate (Ventolin Aerosols) 2.5 mg INHALATION Q4H PRN PRN PRN Reason: Shortness of Breath/Wheezing Albuterol/Ipratropium (Duoneb) 3 ml INHALATION Q6H.RT [facility] Last Admin: 06/03/20 07:15 Dose: 3 ml Documented by: Ascorbic Acid (Vitamin C) 500 mg PO DAILY [facility] Last Admin: 06/03/20 08:34 Dose: 500 mg Documented by: [facility], [facility]) [facility] Last Admin: 06/03/20 08:34 Dose: 81 mg Documented by: Atorvastatin Calcium (Lipitor) 20 mg PO QHS [facility] Last Admin: 06/02/20 22:25 Dose: 20 mg Documented by: Bupropion HCl (Wellbutrin Sr (150mg Tablets)) 150 mg PO DAILY [facility] Last Admin: 06/03/20 08:34 Dose: 150 mg Documented by: Calcium/Vitamin D (Os-Severiano 500mg + D) 1 tablet PO DAILY [facility] Last Admin: 06/03/20 08:32 Dose: 1 tablet Documented by: Carbidopa/Levodopa (Sinemet) 2 tablet PO 4X/DAY [facility] Last Admin: 06/03/20 11:18 Dose: 2 tablet Documented by: Ciprofloxacin HCl (Cipro) 500 mg PO X1 ONE Stop: 06/03/20 13:19 Cyanocobalamin (Vitamin B12) 1,000 mcg PO DAILY@0800 [facility] Last Admin: 06/03/20 08:36 Dose: 1,000 mcg Documented by: Diltiazem HCl (Cardizem Cd) 180 mg PO DAILY [facility] Last Admin: 06/03/20 08:36 Dose: 180 mg Documented by: Entacapone (Comtan) 200 mg PO 4X/DAY [facility] Last Admin: 06/03/20 08:33 Dose: 200 mg Documented by: Famotidine (Pepcid) 20 mg PO QHS [facility] Last Admin: 06/02/20 22:23 Dose: 20 mg Documented by: Ferrous Sulfate (Ferrous Sulfate) 325 mg PO DAILY@1200 [facility] Last Admin: 06/03/20 11:39 Dose: 325 mg Documented by: Gabapentin (Neurontin) 200 mg PO BID [facility] Last Admin: 06/03/20 08:33 Dose: 200 mg Documented by: Hydroxyzine HCl (Atarax Tablet) 10 mg PO TID PRN PRN PRN Reason: ANXIETY Insulin Glargine (Lantus (Bk)) 10 units SC BREAKFAST [facility] Last Admin: 06/03/20 08:53 Dose: 10 units Documented by: Insulin Human Lispro (Humalog Kwikpen (Bk)) 0 unit SC ACHS [facility]; Protocol Last Admin: 06/03/20 11:21 Dose: 1 u Documented by: Isosorbide Mononitrate (Imdur) 30 mg PO DAILY [facility] Last Admin: 06/03/20 08:36 Dose: 30 mg Documented by: Labetalol HCl (Trandate) 10 mg IV Q4H PRN PRN PRN Reason: SBP > 160 OR DBP > 120 Levothyroxine Sodium (Synthroid) 175 mcg PO DAILY@0600 [facility] Last Admin: 06/03/20 05:09 Dose: 175 mcg Documented by: Lidocaine (Lidoderm Patch) 1 patch TOPICAL DAILY [facility]; Protocol Last Admin: 06/03/20 08:36 Dose: 1 patch Documented by: Lisinopril (Zestril) 5 mg PO DAILY [facility] Last Admin: 06/03/20 08:35 Dose: 5 mg Documented by: Morphine Sulfate () 1 mg IV Q3H PRN PRN PRN Reason: Pain Score 6-10/10 Nutritional Formula (Lactose Free) (Glucerna Shake) 120 ml PO TIDCM [facility] Last Admin: 06/03/20 11:19 Dose: 120 ml Documented by: Ondansetron HCl (Zofran) 4 mg IV Q8H PRN PRN PRN Reason: NAUSEA/VOMITING Oxycodone HCl (Oxyir) 5 mg PO Q6H PRN PRN PRN Reason: Pain Score 4-5/10 Pantoprazole Sodium (Protonix) 40 mg PO BID [facility] Last Admin: 06/03/20 08:32 Dose: 40 mg Documented by: Senna/Docusate Sodium (Senokot-S, Katelynn-Colace) 2 tablet PO BID PRN PRN PRN Reason: Constipation Last Admin: 06/02/20 00:37 Dose: 2 tablet Documented by: Sertraline HCl (Zoloft) 150 mg PO DAILY [facility] Last Admin: 06/03/20 08:34 Dose: 150 mg Documented by: Sodium Chloride () 10 - 40 ml IV UD PRN PRN Reason: SALINE FLUSH Last Admin: 06/02/20 06:43 Dose: 10 ml Documented by: Tamsulosin HCl (Flomax) 0.4 mg PO DAILY@1730 [facility] Last Admin: 06/03/20 11:39 Dose: 0.4 mg Documented by: Home Medications: Medications to take at Discharge Atorvastatin Calcium [Lipitor] 20 mg PO QHS 09/27/14 Diltiazem HCl [Diltiazem 24Hr ER (Cd)] 180 mg PO DAILY 09/27/14 Lisinopril [Zestril] 5 mg PO DAILY 09/27/14 buPROPion tablets [Wellbutrin tablets] 150 mg PO DAILY 09/27/14 hydrOXYzine tablet [Atarax tablet] 10 mg PO TID PRN PRN 09/27/14 metFORMIN HCl [Glucophage] 500 mg PO TIDCM 09/27/14 aspirin 325 mg tablet 325 mg PO QDAY 01/12/18 carbidopa 25 mg-levodopa 250 mg tablet 2 tab PO 4X/DAY tab 01/12/18 gabapentin 600 mg tablet 600 mg PO BID 01/12/18 calcium citrate 315 mg-vitamin D3 250 unit tablet 1 tab PO DAILY 10/22/18 ferrous sulfate 325 mg (65 mg iron) tablet 325 mg PO TID tab 10/22/18 isosorbide mononitrate 60 mg tablet,extended release 24 hr 30 mg PO DAILY tab 10/22/18 sertraline 100 mg tablet 150 mg PO DAILY tab 10/22/18 Ascorbic Acid [Vitamin C] 500 mg PO DAILY 02/07/20 Entacapone [Comtan] 200 mg PO 4X/DAY 02/07/20 Famotidine 20 mg PO QHS 02/07/20 Omeprazole 40 mg PO BID 02/07/20 levothyroxine 137 mcg tablet 175 mcg PO DAILY tab 03/24/20 Albuterol Aerosols [Ventolin Aerosols] 2.5 mg INHALATION Q4HWA.RT 06/01/20 Cyanocobalamin [Vitamin B12] 1,000 mcg PO DAILY@0800 06/01/20 Ipratropium/Albuterol Sulfate [Duoneb] 3 ml INHALATION Q6HWA.RT 06/01/20 Insulin Glargine [Lantus SoloStar Pen] 10 units SUBCUT BREAKFAST 06/02/20 Ciprofloxacin [Cipro] 500 mg PO BID #10 tab 06/03/20 Tamsulosin HCl [Flomax] 0.4 mg PO DAILY@1730 #90 cap 06/03/20 Following Prescriptions Were Given to Patient: Ciprofloxacin [Cipro] 500 mg PO BID #10 tab Prescription Printed Tamsulosin HCl [Flomax] 0.4 mg PO DAILY@1730 #90 cap Prescription Printed Primary Care Physician: Roselyn Goldberg MD [Primary Care Provider] - Please follow up with your Primary Care Physician in: 1 week. Disposition: Long-Term facility Minutes spent on discharge:: 33 Patient Condition:: Stable Medical Necessity - Tobacco Use Smoking Status: Never smoker Meaningful Use Info Meaningful Use Diagnoses (Choose all that apply): None applicable Inpatient E&M: 29349 Disch Hosp
[2020-06-03] MEDS: Ciprofloxacin 500 MG Tablet PO (14:41)
--- NOTE | 2020-06-03 15:08 | NURSING ---
Report given to Harley Ruano Rn at [facility] at this time.
== END 2020-06-03 15:23 | disposition skilled nursing facility (03) | DRG 184 ==
LOC: ED 10:15 → MS3 13:05
PROVIDERS: Admitting Provider Hospitalist; Emergency Provider Emergency Medicine; PCP Internal Medicine; Visit Provider Hospitalist
DX: S22.41XA Multiple fractures of ribs, right side, initial encounter for closed fracture (principal); N17.9 Acute kidney failure, unspecified; I47.2 Ventricular tachycardia; I45.2 Bifascicular block; J90 Pleural effusion, not elsewhere classified; Z23 Encounter for immunization; D64.9 Anemia, unspecified; R53.81 Other malaise; E86.0 Dehydration; M75.32 Calcific tendinitis of left shoulder; W05.0XXA Fall from non-moving wheelchair, initial encounter; Y93.9 Activity, unspecified; Y92.9 Unspecified place or not applicable; I49.3 Ventricular premature depolarization; N40.0 Benign prostatic hyperplasia without lower urinary tract symptoms; I25.10 Atherosclerotic heart disease of native coronary artery without angina pectoris; E11.9 Type 2 diabetes mellitus without complications; I10 Essential (primary) hypertension; E78.00 Pure hypercholesterolemia, unspecified; I35.0 Nonrheumatic aortic (valve) stenosis; I48.0 Paroxysmal atrial fibrillation; G20 Parkinson's disease; E03.9 Hypothyroidism, unspecified; Z66 Do not resuscitate; Z95.1 Presence of aortocoronary bypass graft; Z95.810 Presence of automatic (implantable) cardiac defibrillator; Z79.4 Long term (current) use of insulin; Z79.82 Long term (current) use of aspirin; Z79.899 Other long term (current) drug therapy
CPT/HCPCS: 36415; 70450; 71101; 73030; 80048; 81001; 82550; 82728; 82962; 83036; 83540; 83550; 85014; 85018; 85025; 85610; 86850; 86900; 86901; 86920; 86922; 87077; 87086; 87088; 87186; 87635; 93005; 94640; 97110; 97162; 97166; 97530; 99251; 99285; J7030; J7040; P9016; 90686; A4216; G0463; J2405; U0003

== ENCOUNTER 2020-06-11 01:30 | Inpatient (IN) | payer OTHER, MEDICARE, SELFPAY ==
[2020-06-01 12:27] VITALS: BMI 27.3
[2020-06-11] VITALS (31 sets, daily range): BP systolic 91–168; BP diastolic 43–109; PULSE 71–117; RESP 10–100; TEMP 35.8–36.6; O2SAT 74–100; BMI 24.5; BMI 24.0
[2020-06-11 01:41] LABS: Bedside Glucose 151 mg/dL (70-110)
--- NOTE | 2020-06-11 01:47 | CT_ITS ---
STUDY: CT BRAIN WITHOUT CONTRAST REASON FOR EXAM: Male, 75 years old. CONFUSION, BG 54, HX DIAB, TESTICULAR CA RADIATION DOSAGE (If Supplied By Facility): CTDIvol = ( 44.99 ) mGy, DLP = ( 863.60 ) mGycm TECHNIQUE: Transaxial CT imaging of the brain was performed without administration of intravenous contrast material. Individualized dose optimization techniques were used for this CT. COMPARISON: 06/01/2020. FINDINGS: Normal soft tissue structures. Normal calvarium. There is focal encephalomalacia in the left parietal lobe, consistent with an old infarction. There is mild cerebral atrophy with widening of the extra-axial spaces and ventricular dilatation. There are areas of decreased attenuation within the white matter tracts of the supratentorial brain, consistent with microvascular disease changes. Normal basal ganglia and thalami. Normal brainstem. Normal cerebellum. There is atherosclerotic calcification of the vertebral and cavernous carotid arteries. There is no intracranial hemorrhage. There are no findings of an acute ischemic infarction. Normal visualized paranasal sinuses. CT/Brain/Head without Contrast IMPRESSION: Chronic involutional changes of the brain. 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 No demonstrated acute intracranial process. Electronically Signed: Eliud Leo MD at 3:43 EDT , Service support ,
[2020-06-11 02:28] LABS: Absolute Lymphocyte Count 0.32 X10^3/uL (0.83-4.51); Absolute Neutrophil Count 8.3 X10^3/uL (2.0-7.7); Basophil# 0.02 X10^3/uL; Basophil% 0.2 % (0-1); Eosinophil# 0.18 X10^3/uL; Eosinophils% 1.9 % (0-5); Hematocrit 25.8 % (40-54); Hemoglobin 7.8 g/dL (13.0-16.5); Lymphocyte # 0.32 X10^3/ul (4.0); Lymphocyte % 3.3 % (19-41); Mean Corp Hgb Conc 30.2 g/dL (32-36); Mean Corpuscular Hgb 27.9 pg (27.0-32.0); Mean Corpuscular Volume 92.1 fL (80-94); Mean Platelet Vol. 8.4 fl (6.2-12.0); Monocyte% 8.2 % (0-10); NRBC Flagged by Analyzer 0 % (0-5); Neutrophil # 8.32 X10^3/uL (2.7-7.7); Neutrophil % 85.7 % (47-70); POSITIVE DIFFERENTIAL YES; Platelet Count 281 K/mm3 (150-450); RBC Distribution Width CV 17.8 % (11.6-14.6); RBC Distribution Width SD 59.7 fl (35.1-43.9); White Blood Count 9.7 K/mm3 (4.4-11.0)
--- NOTE | 2020-06-11 02:29 | RAD_ITS ---
STUDY: X-RAY CHEST REASON FOR EXAM: Male, 75 years old. Hypoxia. TECHNIQUE: Single AP portable view of the chest. COMPARISON: 06/01/2020.w FINDINGS: There are no confluent pulmonary infiltrates. There is no demonstrated pleural abnormality. Normal size heart. There are sternotomy wires. There is an atrioventricular pacemaker. Normal mediastinum and arun. There is atherosclerotic calcification of the aortic arch. There are no demonstrated acute fractures or destructive bone lesions. There is no demonstrated abnormality of the visualized soft tissue structures of the upper abdomen. RAD/Chest 1 View (Portable) IMPRESSION: No evidence for acute cardiopulmonary pathology. Pacemaker. Electronically Signed: Eliud Leo MD at 3:46 EDT , Service support ,
--- NOTE | 2020-06-11 02:34 | ED.VISSUMM ---
- ER Visit Summary Date of Service: 06/11/20 Chief Complaint: Confusion History of Present Illness: The patient is a [address] Etienne Stokes. He is a very poor informant. He was admitted to the hospital from June 01?June 03. [facility] They report that tonight he was confused and his blood sugar was 54. EMS gave him a milligram of glucagon. On arrival to the emergency department his Accu-Chek is 151. However, he remains very confused. Upon review of systems patient does admit to nausea and dysuria. He denies any other complaints. Physical Examination: Vitals: Stable. Afebrile. General: Well-nourished and well-developed. Head: Normocephalic atraumatic. Neck: Supple, no lymphadenopathy. No JVD. Nontender. Cardiovascular: Regular rate and rhythm. 2 out of 6 systolic murmur. Respiratory: No respiratory distress. Clear to auscultation bilaterally. Abdominal: Soft, nontender, nondistended, normal bowel sounds. No guarding, rebound, or peritoneal signs. Back: Nontender. Extremities: Nontender, 1+ edema of his lower extremities bilaterally. Skin: Normal color, no rash. Neurologic: Lethargic. Arouses to voice. Psych: Normal affect. Test Results: CBC shows an H&H of 7.8 and 25.8, segment neutrophils 86, excess of 3. Chem-7 shows a chloride of 110 and glucose of 130. LFTs show total protein of 6.3 and albumin of 2.6. Alk phos is 149, ALT of 7, AST of 13. UA is negative. Clinical Impression(s) from Imaging Studies Brain CT 06/11/20 01:47 IMPRESSION: Chronic involutional changes of the brain. 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 No demonstrated acute intracranial process. Electronically Signed: Eliud Leo MD at 3:43 EDT , Service support , Chest X-Ray 06/11/20 02:29 IMPRESSION: No evidence for acute cardiopulmonary pathology. Pacemaker. Electronically Signed: Eliud Leo MD at 3:46 EDT , Service support , Emergency Department Course and Treatment: While in the emergency department patient fell asleep and his pulse ox dropped to 78% on room air with a good waveform. He was placed on 2 L nasal cannula and his pulse ox is been in the 90s since that time. CTA of the chest was ordered due to the hypoxia. When they came to pick him up the patient began convulsing. He does appear to be postictal after this. He does not appear to have bitten his tongue. Repeat Accu-Chek was 57. He was given amp of D50 IV. He is quite sedated from the Benadryl so he was not given Ativan. He was given Keppra IV. Treatment Plan: Patient clearly has a mental status change. He appeared to have a seizure in the emergency department. It is unclear whether this is due to his hypoglycemia. He was discussed with Dr. Henao. He will be admitted to the hospital for further evaluation and treatment. Disposition: Admitted in serious condition. Impression: 1. Seizure, new onset. 2. Hypoglycemia on metformin. 3. Anemia, chronic. This note was generated with [employer] software. It may contain incorrect words, spelling, and punctuation that were not noted in review of the chart prior to signing ED Disposition - Plan for ED Patient: Referrals: Etienne Mast MD [Primary Care Provider] -
[2020-06-11 02:37] LABS: Differential Indicated SCAN CRITERIA MET
[2020-06-11 02:38] LABS: Bacteria 0 SEEN /hpf (None Seen); Color, Urine Amber (Yellow); Glucose, Dipstick Normal (Normal); Ketone-Dipstick 15 mg/dl (Negative); Leukocyte Esterase-Dipstick 25 /ul (Negative); Mucous, Urine 0 SEEN /hpf (<or=2+); Nitrite-Dipstick Negative (Negative); Occult Blood-Urine 10 /ul (Negative); Protein-Dipstick 30 mg/dl (Negative); Squamous Epithelial Cells - UA 0 SEEN /hpf (0-5); Urine Bilirubin Dipstick Negative (Negative); Urine Clarity Sl. Cloudy (Clear); Urine Urobilinogen Normal (Normal)
[2020-06-11 02:41] LABS: ALB/GLOB Ratio 0.7 RATIO (0.9-2.4); AST(SGOT) 13 U/L (15-37); Alanine Aminotransfer ALT/SGPT 7 U/L (16-61); Albumin, Serum 2.6 g/dL (3.2-5.0); Alkaline Phosphatase 149 U/L (45-117); Anion Gap 5 (5-15); BUN 18 mg/dL (7-18); BUN/Creat Ratio 18.3 RATIO (10-20); Calcium,Total 8.7 mg/dL (8.5-10.1); Chloride 110 mmol/L (98-107); Creatinine, Serum 0.98 mg/dL (0.70-1.30); EST Glomerular Filtration Rate 79 mL/min (>60); Est Glom Filt Rate - Afr Amer 96 mL/min (>60); Estimated Creatinine Clearance 62.04 ml/min; Globulin 3.7 g/dL (2.2-4.2); Glucose 130 mg/dL (74-106); Potassium 4.4 mmol/L (3.5-5.1); Protein, Total 6.3 g/dL (6.4-8.2); Sodium Level 140 mmol/L (136-145)
--- NOTE | 2020-06-11 03:00 | CT_ITS ---
STUDY: CTA CHEST REASON FOR EXAM: Male, 75 years old. CONCERN FOR PE, HYPOGLYCEMIA, CONFUSED, HYPOXIA, HX CABG, DEMENTIA, [place]S, ICD, DIAB RADIATION DOSAGE (If Supplied By Facility): CTDIvol = ( 14.22 ) mGy, DLP = ( 502.10 ) mGycm TECHNIQUE: The examination was performed with the intravenous administration of IV 75mL [id number]. Post-processing of the angiographic images was performed, with multiplanar reformation and 3D reconstruction. Individualized dose optimization techniques were used for this CT. COMPARISON: Chest x-ray 06/11/2020. FINDINGS: Normal enhancement of the main pulmonary artery and right and left pulmonary arteries. Normal enhancement of the bilateral peripheral pulmonary arteries. There is no demonstrated pulmonary embolism. Sensitivity for small pulmonary emboli is limited by respiratory motion. There is atherosclerotic calcification of the thoracic aorta and visualized great vessels. There is no demonstrated aortic dissection. Normal heart and pericardium. There is an atrial-bilateral pacemaker. There are coronary artery calcifications. There are sternotomy wires and surgical clips suggesting previous CABG. Normal mediastinum. Normal hilar regions. There is moderate AP narrowing of the trachea, consistent with tracheomalacia. There is also central bronchomalacia bilaterally. There is a moderate right pleural effusion and there is a small left pleural effusion. There is overlying atelectasis in the posterior lungs and lung bases. There is interstitial prominence in the lung [place], suggesting mild CHF. Normal chest wall structures. Normal osseous structures. Normal visualized upper abdomen. CT/CTA Chest W/WO Contrast IMPRESSION: Normal CTA chest examination, without a demonstrated pulmonary embolism, aortic aneurysm, or aortic dissection. Moderate right pleural effusion and small left pleural effusion with overlying atelectasis in the posterior lungs and lung bases. Interstitial prominence bilaterally probably representing CHF. Tracheomalacia and central bronchial bronchial malacia.. Pacemaker. Electronically Signed: Eliud eLo MD at 6:46 EDT , Service support ,
[2020-06-11 03:02] LABS: Amorphous Sediment 1+; Red Blood Cells-Urine 0-5 SEEN /hpf (0-5); White Blood Cells 0-5 SEEN /hpf (0-5)
[2020-06-11] MEDS: MethylPREDNISolone 125 MG/2 ML Vial IV (03:24)
[2020-06-11] MEDS: DiphenhydrAMINE 50 MG/ML Syringe 25 MG IV (03:25)
--- NOTE | 2020-06-11 04:15 | ED.RN ---
DR ABREU AND ARNAUD MADE AWARE THAT PT IS SHAKING AND APPEARS TO HAVE SEIZED. NEW ORDERS ENTERED. WILL CONTINUE TO MONITOR
--- NOTE | 2020-06-11 04:23 | HP.PCM_ITS ---
Problem List (1) Encephalopathy acute Status: Acute (2) Seizure Status: Acute (3) Hypoglycemia Status: Acute (4) Hypoxia Status: Acute (5) Implantable cardioverter-defibrillator (ICD) at end of battery life Status: Chronic (6) Paroxysmal atrial fibrillation Status: Chronic (7) Essential hypertension Status: Chronic (8) Atherosclerotic heart disease of [place] coronary artery without angina pectoris Status: Chronic Qualifiers: [place] vs. transplanted heart: [place] heart Qualified Code(s): I25.10 - Atherosclerotic heart disease of [place] coronary artery without angina pectoris Comment: CABG x4- MONTERO to LAD, EPIFANIO to the Distal RCA, Right Radial Artery to the OM branch of CX, and Reverse SVG from the aorta to the Distal RCA 08/17/01 (9) Aortocoronary bypass status Status: Chronic Comment: CABG x4- MONTERO to LAD, EPIFANIO to the Distal RCA, Right Radial Artery to the OM branch of CX, and Reverse SVG from the aorta to the Distal RCA 08/17/01 (10) Hyperlipidemia Status: Chronic Qualifiers: Hyperlipidemia type: unspecified Qualified Code(s): E78.5 - Hyperlipidemia, unspecified (11) Type 2 diabetes mellitus Status: Chronic Qualifiers: Diabetes mellitus correction insulin use: with intermodal customer service use Diabetes mellitus complication status: without complication Qualified Code(s): E11.9 - Type 2 diabetes mellitus without complications; Z79.4 - half-way (current) use of insulin History of Present Illness Date of Admission: 06/11/20 Chief Complaint: Unreponsiveness, possible seizure, hypoxia The patient is a 75 y/o M w/ PMHx: CAD s/p CABG x 4, HTN, HLD, Diabetes mellitus type II, PAF, Parkinson's disease, Chronic anemia, Hypothyroidism, Anxiety and Depression, GERD, PAF, recently admitted on 06/01-06/03/20 with acute on chronic anemia requiring blood transfusion with no evidence of acute blood loss, acute kidney injury as well as acute traumatic ninth, 10th and 11th rib fractures related to mechanical fall in addition to treatment of UTI and urinary retention with Flomax discharged on regimen of ciprofloxacin who now represents to the [facility] ED on 06/11/20 with history of confusion noted at intermediate facility with patient complaint of intermittent nausea and dysuria prompting referral to ED for evaluation per his facility. Work-up in the ED included T 97.3, heart rate 90, BP 135/63, respiratory rate 18, 95% room air however when patient was sleeping while in the emergency room he did decrease his saturation to 78% on room air, CBC with WC 9.7, hemoglobin 7.8, platelet 281 with left shift with concurrent lymphopenia, CMP with chloride 110, glucose 130, AST/ALT 13/7, alk phos 149, urinalysis with specific gravity 1.020, protein 30, ketone 15, occult blood 10, negative nitrite, 25 leukocyte [place], no market urine WBCs, 0 urine bacteria, CT brain with chronic involutional changes with evidence of old left parietal lobe infarct with no acute intracranial process, chest x-ray with no acute cardiopulmonary findings with evidence pacemaker, CTA chest with and witho ut contrast pending per ED given hypoxia. In the ED upon evaluation, patient noted to have abnormal movements of his body, convulsing with worsened with worsened confusion following, unresponsiveness and noted drooling. BS was obtained and recurrently decreased (57) with additional amp administered. Discussed with ED physician and concern for seizure possibly secondary to hypoglycemia. Past Medical History Past Medical History (Chronic Problems): Chronic Problems (Last Reviewed 03/06/20 @ 04:[address] Vick Gay MD) Implantable cardioverter-defibrillator (ICD) at end of battery life (Chronic) Nonrheumatic aortic (valve) stenosis (Chronic) Paroxysmal atrial fibrillation (Chronic) Essential hypertension (Chronic) Atherosclerotic heart disease of [place] coronary artery without angina pectoris (Chronic) CABG x4- MONTERO to LAD, EPIFANIO to the Distal RCA, Right Radial Artery to the OM branch of CX, and Reverse SVG from the aorta to the Distal RCA 08/17/01 Aortocoronary bypass status (Chronic ~08/17/01) CABG x4- MONTERO to LAD, EPIFANIO to the Distal RCA, Right Radial Artery to the OM branch of CX, and Reverse SVG from the aorta to the Distal RCA 08/17/01 Hyperlipidemia (Chronic) Carotid bruit (Chronic) Long-term use of high-risk medication (Chronic) Paroxysmal ventricular tachycardia (Chronic) Implantable cardioverter-defibrillator (ICD) in situ (Chronic ~10/23/11) Type 2 diabetes mellitus (Chronic) Medical History: Medical History (Last Reviewed 03/06/20 @ 04:[address] Vick Gay MD) Nonrheumatic aortic (valve) stenosis (Chronic) I35.0 Paroxysmal atrial fibrillation (Chronic) I48.0 Essential hypertension (Chronic) I10 Atherosclerotic heart disease of [place] coronary artery without angina pectoris (Chronic) I25.10 CABG x4- MONTERO to LAD, EPIFANIO to the Distal RCA, Right Radial Artery to the OM branch of CX, and Reverse SVG from the aorta to the Distal RCA 08/17/01 Hyperlipidemia (Chronic) E78.5 Carotid bruit (Chronic) R09.89 Long-term use of high-risk medication (Chronic) Z79.899 Paroxysmal ventricular tachycardia (Chronic) I47.2 Type 2 diabetes mellitus (Chronic) E11.9 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 Parkinsons disease G20 Atrial flutter (Inactive) I48.92 Hypertension (Inactive) I10 Allergies Iodine and Iodide Containing Produc Allergy (Verified 04/27/20 13:53) Shortness of breath simvastatin Adverse Reaction (Verified 04/27/20 13:53) Other Home Medications: Ambulatory Orders Medication Instructions Recorded Atorvastatin Calcium [Lipitor] 20 mg PO QHS 09/27/14 Diltiazem HCl [Diltiazem 24Hr ER 180 mg PO DAILY 09/27/14 (Cd)] Lisinopril [Zestril] 5 mg PO DAILY 09/27/14 buPROPion tablets [Wellbutrin 150 mg PO DAILY 09/27/14 tablets] hydrOXYzine tablet [Atarax tablet] 10 mg PO TID PRN PRN 09/27/14 metFORMIN HCl [Glucophage] 500 mg PO TIDCM 09/27/14 aspirin 325 mg tablet 325 mg PO QDAY 01/12/18 carbidopa 25 mg-levodopa 250 mg 2 tab PO 4X/DAY tab 01/12/18 tablet gabapentin 600 mg tablet 600 mg PO BID 01/12/18 calcium citrate 315 mg-vitamin D3 1 tab PO DAILY 10/22/18 250 unit tablet ferrous sulfate 325 mg (65 mg 325 mg PO TID tab 10/22/18 iron) tablet isosorbide mononitrate 60 mg 30 mg PO DAILY tab 10/22/18 tablet,extended release 24 hr sertraline 100 mg tablet 150 mg PO DAILY tab 10/22/18 Ascorbic Acid [Vitamin C] 500 mg PO DAILY 02/07/20 Entacapone [Comtan] 200 mg PO 4X/DAY 02/07/20 Famotidine 20 mg PO QHS 02/07/20 Omeprazole 40 mg PO BID 02/07/20 levothyroxine 137 mcg tablet 175 mcg PO DAILY tab 03/24/20 Albuterol Aerosols [Ventolin 2.5 mg INHALATION Q4HWA.RT 06/01/20 Aerosols] Cyanocobalamin [Vitamin B12] 1,000 mcg PO DAILY@0800 06/01/20 Ipratropium/Albuterol Sulfate 3 ml INHALATION Q6HWA.RT 06/01/20 [Duoneb] Insulin Glargine [Lantus SoloStar 10 units SUBCUT BREAKFAST 06/02/20 Pen] Ciprofloxacin [Cipro] 500 mg PO BID #10 tab 06/03/20 Tamsulosin HCl [Flomax] 0.4 mg PO DAILY@1730 #90 cap 06/03/20 Surgical History: Surgical History (Last Reviewed 03/06/20 @ 04:[address] Vick Gay MD) Aortocoronary bypass status (Chronic) Onset Date: ~08/17/01 Z95.1 CABG x4- MONTERO to LAD, EPIFANIO to the Distal RCA, Right Radial Artery to the OM branch of CX, and Reverse SVG from the aorta to the Distal RCA 08/17/01 Implantable cardioverter-defibrillator (ICD) in situ (Chronic) Onset Date: ~10/23/11 Z95.810 History of appendectomy Z90.49 History of cardiac radiofrequency ablation Onset Date: ~06/2003 Z98.890 History of orchiectomy, unilateral Z90.79 History of tonsillectomy Z90.89 Surgical History: coronary bypass surgery, - - Unilateral orchiectomy, appendectomy, tonsillectomy, CABG x4, RFA, ICD placement. Psychiatric History: No pertinent psych hx Lives: [facility] Smoking Status: Never smoker Tobacco Use: Non-smoker Alcohol: None Drugs: None - *Family History Maternal Family History: Family History (Last Reviewed 06/01/20 @ 11:[address] Darren Chou MD) Father CAD (coronary artery disease) Myocardial infarction Mother CAD (coronary artery disease) Sister Diabetes Sister CAD (coronary artery disease) Hx of CABG History Items: High Cholesterol, Heart Disease, Hypertension Paternal Family History: Family History (Last Reviewed 06/01/20 @ 11:[address] Darren Chou MD) Father CAD (coronary artery disease) Myocardial infarction Mother CAD (coronary artery disease) Sister Diabetes Sister CAD (coronary artery disease) Hx of CABG History Items: High Cholesterol, Heart Disease, Hypertension VTE Information - Inpt Only VTE Present on Admission: No VTE Mechan Device Prophylaxis: SCD's VTE Pharm Prophylaxis ordered?: Yes Patient Problems: Active and Suspected Problems (Last Reviewed 03/06/20 @ 04:[address] Vick Gay MD) Encephalopathy acute (Acute) Seizure (Acute) Hypoglycemia (Acute) Hypoxia (Acute) Subjective: Laying in the ED bed, recent witnessed convulsions, resolved but nonresponsive initially, improving but not at prior initial baseline seen in the ED. Objective: Physical Examination: General: awake but not alert, unable to answer orientation questions, recent witnessed convulsions, now resolved, no obvious distress. Skin: normal color, turgor, no icterus, cyanosis. HEENT: AT/NC, EOM unable to be assessed given postictal appearance, PERRLA, dry MM, no carotid bruits or JVD noted. Lungs: Diminished BS BL, > bases, increased RR, no evident rales, ronchi or wheezing. Heart: Mildly tachycardic with regular rhythm; no gallop, rub audible, + SM. Abdomen: soft, NTTP, ND, normal BS, no HSM. Extremities: no cyanosis, clubbing, BL ankle to [place] edema. Neurological: awake but not alert, unable to answer orientation questions, r ecent witnessed convulsions, now resolved, no obvious distress; cognitive function not baseline intact, appears postictal; pupils equally reactive to light and accomodation; cranial nerves difficult to assess as not following commands, strength severely globally decreased given recent witnessed convulsions and now post-ictal status. Psychiatric: affect appears flat, no acute evidence of depressive or anxiety feelings. - Physical Exam Vitals/I&O's: Vital Signs Temp Pulse Resp BP Pulse Ox 97.3 F L 90 18 135/63 H 95 06/11/20 01:31 06/11/20 01:31 06/11/20 01:31 06/11/20 01:31 06/11/20 01:31 Oxygen Delivery Method Room Air Weight: 161 lb 6.054 oz Body Mass Index (BMI) 24.5 Finger Stick Blood Glucose 151 Intake and Output for Last 24 Hours 06/09/20 06/10/20 06/11/20 23:59 23:59 23:59 Intake Total 500 / 500 Balance 500 / 500 Laboratory Results 06/11/20 01:34: POC Glucose 151 H 06/11/20 02:10: WBC 9.7, RBC 2.80 L, Hgb 7.8 L, Hct 25.8 L, MCV 92.1, MCH 27.9, MCHC 30.2 L, RDW Std Deviation 59.7 H, RDW Coeff of Mat 17.8 H, Plt Count 281, MPV 8.4, Immature Gran % (Auto) 0.700, Neut % (Auto) 85.7 H, Lymph % (Auto) 3.3 L, [place] % (Auto) 8.2, Eos % (Auto) 1.9, Baso % (Auto) 0.2, Absolute Neuts (auto) 8.3 H, Absolute Lymphs (auto) 0.32 L, Nucleated RBC % 0, Differential Comment COMMENT 06/11/20 02:10: Sodium 140, Potassium 4.4, Chloride 110 H, Carbon Dioxide 25.0, Anion Gap 5, BUN 18, Creatinine 0.98, Estim Creat Clear Calc 62.04, Est GFR (MDRD) Af Amer 96, Est GFR (MDRD) Non-Af 79, BUN/Creatinine Ratio 18.3, Glucose 130 H, Calcium 8.7, Total Bilirubin 0.40, AST 13 L, ALT 7 L, Alkaline Phosphatase 149 H, Total Protein 6.3 L, Albumin 2.6 L, Globulin 3.7, Albumin/Globulin Ratio 0.7 L 06/11/20 02:25: Urine Color [place], Urine Clarity Sl. Cloudy, Urine pH 5.0, Ur Specific [place] 1.020, Urine Protein 30 H, Urine Glucose (UA) Normal, Urine Ketones 15 H, Urine Occult Blood 10 H, Urine Nitrite Negative, Urine Bilirubin Negative, Urine Urobilinogen Normal, Ur Leukocyte Esterase 25 H, Urine RBC 0-5 SEEN, Urine WBC 0-5 SEEN, Ur Squamous Epith Cells 0 SEEN, Amorphous Sediment 1+, Urine Bacteria 0 SEEN, Urine Mucus 0 SEEN Assessment/Plan All Active Problems (Last Reviewed 03/06/20 @ 04:[address] Vick Gay MD) Encephalopathy acute (Acute) Seizure (Acute) Hypoglycemia (Acute) Hypoxia (Acute) Acute on chronic anemia (Acute) Rib fracture (Acute) Acute kidney injury (Acute) The patient is a 75 y/o M w/ PMHx: CAD s/p CABG x 4, HTN, HLD, Diabetes mellitus type II, PAF, Parkinson's disease, Chronic anemia, Hypothyroidism, Anxiety and Depression, GERD, PAF, recently admitted on 06/01-06/03/20 with acute on chronic anemia requiring blood transfusion with no evidence of acute blood loss, acute kidney injury as well as acute traumatic ninth, 10th and 11th rib fractures related to mechanical fall in addition to treatment of UTI and urinary retention with Flomax discharged on regimen of ciprofloxacin who now represents to the [facility] ED on 06/11/20 with history of confusion noted at intermediate facility. 1. Acute Encephalopathy, possibly Multifactorial including Hypoxia, Hypoglycemia, concern for Seizure activity: Will admit to PCU given recent seizure. And worsened status, maintain on monitor given siginificant hypoxia noted in the ED, maintain on seizure precautions, CTA chest with and without contrast pending with pre-medication administered prior given allergy history, UA not marked appearing, no marked WBC elevation but noted shift and lymphopenia, no marked electrolyte disturbances, will obtain NH level, maintain on fall and aspiration precautions, monitor pain regimen for recent multiple rib fractures as may also be contributing to confusion, obtain EEG, unable to obtain MRI secondary to ICD history, loaded with Keppra in the ED, will continue 500 mg BID, maintain on D5NS given recurrent hypoglycemia. Pending further work-up request Neurology consultation. Once patient clinically improved, not post-ictal will allow diet and oral intake transition. Given seizures, possibly aspirating contributing to his hypoxia but CXR not marked appearing as noted. PT, OT, CM consultations for discharge planning. 2. Diabetes mellitus type II with hypoglycemia: At skilled facility patient blood sugar 54 with EMS administration of glucagon with repeat blood sugar in the ED 130 and 151, will cautiously continue patient home insulin regimen and if necessary may need to discontinue long-acting or hold, allow liberal diet given hypoglycemia with transition to ADA once improved and not requiring D5NS, continue frequent accu checks. 3. Recent Mechanical Fall with multiple rib fx: Recent admission with mechanical fall with rib fracture x 3 (R 9th, 10th, 11th rib fx), possibnly contributing to his hypoxia, will encourage HOB, IS, encourage deep breathing and cough routinely, OOB, continue PT and OT evaluation with CM for discharge planning. 4. Recent E. coli and Serratia UTI: Patient treated with regimen of ciprofloxacin to which both were susceptible, repeat urinalysis improved, completed regimen. 5. Chronic normocytic anemia, Fe Deficiency anemia: Admission hemoglobin 7.8, recent admission hemoglobin 7.1 with administration PRBC now recurrently decreased to 7.8, prior baseline noted 8-9, continue to trend. Recent 06/01/2020 iron and ferritin labs performed more suspicious for AOCD or mixed. Will continue his Fe supplementation. Will request guiac. 6. Prior CVA: Evidence of prior CVA with CT brain noting evidence of old L parietal lobe infarct, will maintain on asa, statin, HTN and DM regimen as noted. 7. CAD: s/p CABG x 4, MONTERO to LAD, EPIFANIO to the Distal RCA, Right Radial Artery to the OM branch of CX, and Reverse SVG from the aorta to the Distal RCA 08/17/01, maintain on aspirin pending further anemia evaluation as noted, statin, not on beta-genevieve but on diltiazem, lisinopril. 8. Hypertension: Continue home regimen including diltiazem, isosorbide, lisinopril with hold parameters. 9. Hyperlipidemia: Continue home statin regimen. 10. Parkinson's disease: Continue home carbidopa-levodopa as well as entacapone regimen, fall precautions, PT, OT, case management evaluations for discharge planning. 11. Hypothyroidism: Continue home synthroid regimen. 12. Anxiety and depression: Continue home Wellbutrin, sertraline regimen. 13. PAF: Maintain on diltiazem, not anticoagulated given fall history, maintain on asa only. 14. GERD: PPI. 15. DVT prophylaxis: SCDs, lovenox. 16. CODE status: DNR-CCA, no intubation per recent admission. Inpatient E&M: 10895 Init Hosp L3
[2020-06-11 04:26] LABS: Bedside Glucose 57 mg/dL (70-110)
[2020-06-11] MEDS: levETIRAcetam IV 1,000 MG/100 ML BAG 400 MG IV (04:54)
[2020-06-11 05:41] LABS: Bedside Glucose 156 mg/dL (70-110)
--- NOTE | 2020-06-11 06:10 | PCM.CON.CC ---
Reason for Consult Date of Consultation: 06/11/20 Reason for Consultation: Encephalopathy, hypoglycemia, hypoxia, seizure History of Present Illness: The patient is a 75-year-old male, with a history as outlined below, who presented to the emergency department on June 11 with altered mentation. The patient was recently admitted to the hospital June 01- with acute on chronic anemia requiring blood transfusion, acute kidney injury and acute traumatic rib fractures after sustaining a mechanical fall. The patient was discharged to a detention facility at that time. The patient did receive transfusion of blood products during his prior hospitalization and apparently refused any GI work-up including EGD and colonoscopy. Of note, urine analysis at that time was positive for E. coli and Serratia marcescens on June 03. On presentation to the emergency department, the patient was noted to be afebrile and hemodynamically stable. He was maintaining appropriate oxygen saturations on room air. Laboratory evaluation revealed a normal white blood cell count. Hemoglobin was noted to be 7.8 g/dL, previously 9.2 on June 03. Chemistry profile was largely unremarkable. Alkaline phosphatase was increased to 149. 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 During the patient's emergency department visit, he became hypoxemic with sleep. A CTA chest was subsequently ordered and showed no evidence for pulmonary embolism. Bilateral pleural effusions were noted, right greater than left. In addition, there was narrowing of the trachea consistent with tracheomalacia. During the patient's ED visit, he was also noted to have experienced what was described as seizure activity. He was subsequently placed on Keppra. The patient was then admitted to the medical intensive care unit for further management. Past Medical History Past Medical History (Chronic Problems): Chronic Problems (Last Reviewed 03/06/20 @ 04:[address] Vick Gay MD) Implantable cardioverter-defibrillator (ICD) at end of battery life (Chronic) Nonrheumatic aortic (valve) stenosis (Chronic) Paroxysmal atrial fibrillation (Chronic) Essential hypertension (Chronic) Atherosclerotic heart disease of [place] coronary artery without angina pectoris (Chronic) CABG x4- MONTERO to LAD, EPIFANIO to the Distal RCA, Right Radial Artery to the OM branch of CX, and Reverse SVG from the aorta to the Distal RCA 08/17/01 Aortocoronary bypass status (Chronic ~08/17/01) CABG x4- MONTERO to LAD, EPIFANIO to the Distal RCA, Right Radial Artery to the OM branch of CX, and Reverse SVG from the aorta to the Distal RCA 08/17/01 Hyperlipidemia (Chronic) Carotid bruit (Chronic) Long-term use of high-risk medication (Chronic) Paroxysmal ventricular tachycardia (Chronic) Implantable cardioverter-defibrillator (ICD) in situ (Chronic ~10/23/11) Type 2 diabetes mellitus (Chronic) Medical History: Medical History (Last Reviewed 03/06/20 @ 04:[address] Vick Gay MD) Nonrheumatic aortic (valve) stenosis (Chronic) I35.0 Paroxysmal atrial fibrillation (Chronic) I48.0 Essential hypertension (Chronic) I10 Atherosclerotic heart disease of [place] coronary artery without angina pectoris (Chronic) I25.10 CABG x4- MONTERO to LAD, EPIFANIO to the Distal RCA, Right Radial Artery to the OM branch of CX, and Reverse SVG from the aorta to the Distal RCA 08/17/01 Hyperlipidemia (Chronic) E78.5 Carotid bruit (Chronic) R09.89 Long-term use of high-risk medication (Chronic) Z79.899 Paroxysmal ventricular tachycardia (Chronic) I47.2 Type 2 diabetes mellitus (Chronic) E11.9 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 Parkinsons disease G20 Atrial flutter (Inactive) I48.92 Hypertension (Inactive) I10 Allergies Iodine and Iodide Containing Produc Allergy (Verified 04/27/20 13:53) Shortness of breath simvastatin Adverse Reaction (Verified 04/27/20 13:53) Other Home Medications: Ambulatory Orders Medication Instructions Recorded Atorvastatin Calcium [Lipitor] 20 mg PO QHS 09/27/14 Diltiazem HCl [Diltiazem 24Hr ER 180 mg PO DAILY 09/27/14 (Cd)] Lisinopril [Zestril] 5 mg PO DAILY 09/27/14 buPROPion tablets [Wellbutrin 150 mg PO DAILY 09/27/14 tablets] hydrOXYzine tablet [Atarax tablet] 10 mg PO TID PRN PRN 09/27/14 metFORMIN HCl [Glucophage] 500 mg PO TIDCM 09/27/14 aspirin 325 mg tablet 325 mg PO QDAY 01/12/18 carbidopa 25 mg-levodopa 250 mg 2 tab PO 4X/DAY tab 01/12/18 tablet gabapentin 600 mg tablet 600 mg PO BID 01/12/18 calcium citrate 315 mg-vitamin D3 1 tab PO DAILY 10/22/18 250 unit tablet ferrous sulfate 325 mg (65 mg 325 mg PO TID tab 10/22/18 iron) tablet isosorbide mononitrate 60 mg 30 mg PO DAILY tab 10/22/18 tablet,extended release 24 hr sertraline 100 mg tablet 150 mg PO DAILY tab 10/22/18 Ascorbic Acid [Vitamin C] 500 mg PO DAILY 02/07/20 Entacapone [Comtan] 200 mg PO 4X/DAY 02/07/20 Famotidine 20 mg PO QHS 02/07/20 Omeprazole 40 mg PO BID 02/07/20 levothyroxine 137 mcg tablet 175 mcg PO DAILY tab 03/24/20 Albuterol Aerosols [Ventolin 2.5 mg INHALATION Q4HWA.RT 06/01/20 Aerosols] Cyanocobalamin [Vitamin B12] 1,000 mcg PO DAILY@0800 06/01/20 Ipratropium/Albuterol Sulfate 3 ml INHALATION Q6HWA.RT 06/01/20 [Duoneb] Insulin Glargine [Lantus SoloStar 10 units SUBCUT BREAKFAST 06/02/20 Pen] Ciprofloxacin [Cipro] 500 mg PO BID #10 tab 06/03/20 Tamsulosin HCl [Flomax] 0.4 mg PO DAILY@1730 #90 cap 06/03/20 Surgical History: Surgical History (Last Reviewed 03/06/20 @ 04:[address] Vick Gay MD) Aortocoronary bypass status (Chronic) Onset Date: ~08/17/01 Z95.1 CABG x4- MONTERO to LAD, EPIFANIO to the Distal RCA, Right Radial Artery to the OM branch of CX, and Reverse SVG from the aorta to the Distal RCA 08/17/01 Implantable cardioverter-defibrillator (ICD) in situ (Chronic) Onset Date: ~10/23/11 Z95.810 History of appendectomy Z90.49 History of cardiac radiofrequency ablation Onset Date: ~06/2003 Z98.890 History of orchiectomy, unilateral Z90.79 History of tonsillectomy Z90.89 Surgical History: coronary bypass surgery, - - Unilateral orchiectomy, appendectomy, tonsillectomy, CABG x4, RFA, ICD placement. Psychiatric History: No pertinent psych hx Lives: Intermediate Smoking Status: Never smoker Tobacco Use: Non-smoker Alcohol: None Drugs: None - *Family History Maternal Family History: Family History (Last Reviewed 06/01/20 @ 11:[address] Darren Chou MD) Father CAD (coronary artery disease) Myocardial infarction Mother CAD (coronary artery disease) Sister Diabetes Sister CAD (coronary artery disease) Hx of CABG History Items: High Cholesterol, Heart Disease, Hypertension Paternal Family History: Family History (Last Reviewed 06/01/20 @ 11:[address] Darren Chou MD) Father CAD (coronary artery disease) Myocardial infarction Mother CAD (coronary artery disease) Sister Diabetes Sister CAD (coronary artery disease) Hx of CABG History Items: High Cholesterol, Heart Disease, Hypertension Review of Systems Unable to obtain accurate/complete ROS d/t: Due to underlying cephalopathy Patient Problems: Active and Suspected Problems (Last Reviewed 03/06/20 @ 04:[address] Vick Gay MD) Encephalopathy acute (Acute) Seizure (Acute) Hypoglycemia (Acute) Hypoxia (Acute) Objective: The patient's most recent lab work, culture data and imaging studies have all been personally reviewed. - Physical Exam Vitals/I&O's: Vital Signs Temp Pulse Resp BP Pulse Ox 97.8 F 71 14 131/43 H 97 06/11/20 05:49 06/11/20 06:03 06/11/20 05:49 06/11/20 05:49 06/11/20 05:49 Oxygen Flow Rate (L/min) 2 Oxygen Delivery Method Nasal Cannula Weight: 157 lb 13.616 oz Body Mass Index (BMI) 24.0 Finger Stick Blood Glucose 151 Intake and Output for Last 24 Hours 06/09/20 06/10/20 06/11/20 23:59 23:59 23:59 Intake Total 500 / 500 Balance 500 / 500 General: No apparent distress, Lethargic HEENT: Atraumatic, Normocephalic Oral: No Gingival or Mucosal Lesions/ Ulcerations Neck: Supple, No Nodes, Trachea Midline Lungs: No rhonchi, No wheeze, No rales, Diminished Cardiovascular: Normal S1, Normal S2, Murmur, Tachycardic Abdomen: Bowel Sounds Present, Soft, Non Tender Extremities: No clubbing, No cyanosis, No edema Skin: No breakdown Lymphatic: No Cervical, Supraclavicular, or Inguinal Adenopathy Neurological: - - The patient is quite lethargic and only responds to painful stimuli. Psych/Mental Status: Flat Affect Labs (Last 48 Hours) 06/11/20 06/11/20 06/11/20 01:34 02:10 02:10 WBC 9.7 RBC 2.80 L Hgb 7.8 L Hct 25.8 L MCV 92.1 MCH 27.9 MCHC 30.2 L RDW Std Deviation 59.7 H RDW Coeff of Mat 17.8 H Plt Count 281 MPV 8.4 Immature Gran % (Auto) 0.700 Neut % (Auto) 85.7 H Lymph % (Auto) 3.3 L [place] % (Auto) 8.2 Eos % (Auto) 1.9 Baso % (Auto) 0.2 Absolute Neuts (auto) 8.3 H Absolute Lymphs (auto) 0.32 L Nucleated RBC % 0 Differential Comment COMMENT Sodium 140 Potassium 4.4 Chloride 110 H Carbon Dioxide 25.0 Anion Gap 5 BUN 18 Creatinine 0.98 Estim Creat Clear Calc 62.04 Est GFR (MDRD) Af Amer 96 Est GFR (MDRD) Non-Af 79 BUN/Creatinine Ratio 18.3 Glucose 130 H Calcium 8.7 Magnesium Total Bilirubin 0.40 AST 13 L ALT 7 L Alkaline Phosphatase 149 H Troponin I Total Protein 6.3 L Albumin 2.6 L Globulin 3.7 Albumin/Globulin Ratio 0.7 L Vitamin B12 Folate TSH Urine Color Urine Clarity Urine pH Ur Specific [place] Urine Protein Urine Glucose (UA) Urine Ketones Urine Occult Blood Urine Nitrite Urine Bilirubin Urine Urobilinogen Ur Leukocyte Esterase Urine RBC Urine WBC Ur Squamous Epith Cells Amorphous Sediment Urine Bacteria Urine Mucus POC Glucose 151 H 06/11/20 06/11/20 06/11/20 02:25 04:18 04:48 WBC RBC Hgb Hct MCV MCH MCHC RDW Std Deviation RDW Coeff of Mat Plt Count MPV Immature Gran % (Auto) Neut % (Auto) Lymph % (Auto) [place] % (Auto) Eos % (Auto) Baso % (Auto) Absolute Neuts (auto) Absolute Lymphs (auto) Nucleated RBC % Differential Comment Sodium Potassium Chloride Carbon Dioxide Anion Gap BUN Creatinine Estim Creat Clear Calc Est GFR (MDRD) Af Amer Est GFR (MDRD) Non-Af BUN/Creatinine Ratio Glucose Calcium Magnesium Total Bilirubin AST ALT Alkaline Phosphatase Troponin I Total Protein Albumin Globulin Albumin/Globulin Ratio Vitamin B12 Folate TSH Urine Color Tati Urine Clarity Sl. Cloudy Urine pH 5.0 Ur Specific [place] 1.020 Urine Protein 30 H Urine Glucose (UA) Normal Urine Ketones 15 H Urine Occult Blood 10 H Urine Nitrite Negative Urine Bilirubin Negative Urine Urobilinogen Normal Ur Leukocyte Esterase 25 H Urine RBC 0-5 SEEN Urine WBC 0-5 SEEN Ur Squamous Epith Cells 0 SEEN Amorphous Sediment 1+ Urine Bacteria 0 SEEN Urine Mucus 0 SEEN POC Glucose 57 L 156 H 06/11/20 06/11/20 06/11/20 06:00 06:00 06:00 WBC 6.6 RBC 2.90 L Hgb 8.0 L Hct 26.0 L MCV 89.7 MCH 27.6 MCHC 30.8 L RDW Std Deviation 58.5 H RDW Coeff of Mat 17.7 H Plt Count 272 MPV 8.0 Immature Gran % (Auto) 0.500 Neut % (Auto) 95.5 H Lymph % (Auto) 2.1 L [place] % (Auto) 1.4 Eos % (Auto) 0.3 Baso % (Auto) 0.2 Absolute Neuts (auto) 6.4 Absolute Lymphs (auto) 0.14 L Nucleated RBC % 0 Differential Comment COMMENT Sodium Pending Potassium Pending Chloride Pending Carbon Dioxide Pending Anion Gap Pending BUN Pending Creatinine Pending Estim Creat Clear Calc Est GFR (MDRD) Af Amer Pending Est GFR (MDRD) Non-Af Pending BUN/Creatinine Ratio Pending Glucose Pending Calcium Pending Magnesium Pending Total Bilirubin Pending AST Pending ALT Pending Alkaline Phosphatase Pending Troponin I Pending Total Protein Pending Albumin Pending Globulin Albumin/Globulin Ratio Vitamin B12 Pending Folate Pending TSH Pending Urine Color Urine Clarity Urine pH Ur Specific [place] Urine Protein Urine Glucose (UA) Urine Ketones Urine Occult Blood Urine Nitrite Urine Bilirubin Urine Urobilinogen Ur Leukocyte Esterase Urine RBC Urine WBC Ur Squamous Epith Cells Amorphous Sediment Urine Bacteria Urine Mucus POC Glucose Clinical Impression(s) from Imaging Studies Brain CT 06/11/20 01:47 IMPRESSION: Chronic involutional changes of the brain. 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 No demonstrated acute intracranial process. Electronically Signed: Eliud Leo MD at 3:43 EDT , Service support , Chest X-Ray 06/11/20 02:29 IMPRESSION: No evidence for acute cardiopulmonary pathology. Pacemaker. Electronically Signed: Eliud Leo MD at 3:46 EDT , Service support , Current Medications Acetaminophen (Tylenol) 650 mg PO Q6H PRN PRN PRN Reason: Pain Score 1-10/Temp > 100.7 F Al Hydroxide/Mg Hydroxide (Mylanta Ii) 30 ml PO Q6H PRN PRN PRN Reason: Gastric Burning Albuterol Sulfate (Ventolin Aerosols) 2.5 mg INHALATION Q2H PRN PRN PRN Reason: Dyspnea, wheezing Albuterol/Ipratropium (Duoneb) 3 ml INHALATION Q6HWA.RT ROBERTO Aspirin (Aspirin) 325 mg PO DAILYCM ROBERTO Atorvastatin Calcium (Lipitor) 20 mg PO QHS ROBERTO Bupropion HCl (Wellbutrin Tablets) 150 mg PO DAILY ROBERTO Carbidopa/Levodopa (Sinemet) tablet PO 4X/DAY ROBERTO Diltiazem HCl (Cardizem Cd) 180 mg PO DAILY ROBERTO Enoxaparin Sodium (Lovenox) 40 mg SC DAILY ROBERTO Entacapone (Comtan) 200 mg PO 4X/DAY ROBERTO Ferrous Sulfate (Ferrous Sulfate) 325 mg PO TID ROBERTO Gabapentin (Neurontin) 600 mg PO BID ROBERTO Guaifenesin (Robitussin) 10 ml PO Q4H PRN PRN PRN Reason: COUGH Dextrose/Sodium Chloride (Dextrose 5%/0.9% Nacl) 1,000 mls @ 125 mls/hr IV .Q8H ROBERTO Levetiracetam 500 mg/ Sodium (Chloride) 105 mls @ 400 mls/hr IV Q12 ROBERTO Insulin Human Lispro (Humalog Kwikpen (Bkc)) 0 unit SC ACHS ROBERTO; Protocol Isosorbide Mononitrate (Imdur) 30 mg PO DAILY ROBERTO Levothyroxine Sodium (Synthroid) 175 mcg PO DAILY [facility] Lisinopril (Zestril) 5 mg PO DAILY [facility] Magnesium Hydroxide (Milk Of Magnesia) 30 ml PO DAILY PRN PRN PRN Reason: Constipation Melatonin (Melatonin) 3 mg PO QHS PRN PRN PRN Reason: INSOMNIA Morphine Sulfate () 2 mg IV Q3H PRN PRN PRN Reason: Pain Score 6-10 Nitroglycerin (Nitrostat) 0.4 mg SUBLINGUAL Q5M PRN PRN Reason: CARDIAC/CHEST PAIN Non-Formulary Medication (Omeprazole) 40 mg PO BID ROBERTO Ondansetron HCl (Zofran) 4 mg IV Q8H PRN PRN PRN Reason: NAUSEA/VOMITING Oxycodone HCl (Oxyir) 5 mg PO Q4H PRN PRN PRN Reason: Pain Score 4-5 Prochlorperazine Edisylate (Compazine Iv) 5 mg IV Q4H PRN PRN PRN Reason: Breakthrough Nausea/Vomiting Psyllium Hydrophilic Mucilloid (Metamucil) 1 packet PO DAILY PRN PRN PRN Reason: Constipation Senna/Docusate Sodium (Senokot-S, Katelynn-Colace) 2 tablet PO BID PRN PRN Reason: Constipation Sertraline HCl (Zoloft) 150 mg PO DAILY ROBERTO Tamsulosin HCl (Flomax) 0.4 mg PO DAILY@1730 ROBERTO Throat Lozenges (Cepacol Sore Throat Lozenge) 1 lozenge MUCOUS MEM Q2H PRN PRN PRN Reason: SORE THROAT Assessment/Plan Active and Suspected Problems (Last Reviewed 03/06/20 @ 04:[address] Vick Gay MD) Encephalopathy acute (Acute) Seizure (Acute) Hypoglycemia (Acute) Hypoxia (Acute) RECOMMENDATIONS: 1. Maintain patient in seizure precautions. 2. Continue Keppra and obtain EEG. 3. Obtain neurology consultation. 4. Avoid all sedating medications. 5. Check free T4 level and obtain arterial blood gas. IMPRESSIONS: 1. Encephalopathy Clinical concern for new onset seizure activity with subsequent postictal state. Plan to continue seizure precautions along with antiepileptics as ordered. EEG is currently pending. Recommend neurology consultation as well this morning. Plan to obtain arterial blood gas to evaluate for any metabolic derangements. Check TSH and free T4 levels. 2. Acute hypoxemic respiratory insufficiency The patient does have evidence of bilateral pleural effusions on CTA chest. In addition, he does have a known history of coronary artery disease status post CABG along with aortic valve disease. He would likely benefit from gentle diuresis as tolerated by hemodynamics and renal function. Continue to wean supplemental oxygen to maintain saturations at or above 90%. 3. Anemia The patient does have baseline, chronic anemia and refused to undergo endoscopic evaluation during his prior hospitalization. Plan to continue twice daily PPI therapy. Monitor blood counts daily with plans to transfuse if hemoglobin drops below 7 g/dL. 4. History of CVA/coronary artery disease status post CABG/hypertension/hyperlipidemia/Parkinson's disease/hypothyroidism/paroxysmal atrial fibrillation Complicates care, management, recovery and prognosis. Check free T4 level. This note was generated with [employer] dictation software. It may contain incorrect words, spelling, and punctuation that were not noted in checking the note before signing. Inpatient E&M: 30562 Init Hosp L3
[2020-06-11 06:13] LABS: Absolute Lymphocyte Count 0.14 X10^3/uL (0.83-4.51); Absolute Neutrophil Count 6.4 X10^3/uL (2.0-7.7); Basophil# 0.01 X10^3/uL; Basophil% 0.2 % (0-1); Differential Indicated SCAN CRITERIA MET; Eosinophil# 0.02 X10^3/uL; Eosinophils% 0.3 % (0-5); Lymphocyte # 0.14 X10^3/ul (4.0); Lymphocyte % 2.1 % (19-41); Mean Corp Hgb Conc 30.8 g/dL (32-36); Mean Corpuscular Hgb 27.6 pg (27.0-32.0); Mean Corpuscular Volume 89.7 fL (80-94); Monocyte# 0.09 X10^3/uL; Monocyte% 1.4 % (0-10); NRBC Flagged by Analyzer 0 % (0-5); Neutrophil # 6.35 X10^3/uL (2.7-7.7); Neutrophil % 95.5 % (47-70); POSITIVE DIFFERENTIAL YES; Platelet Count 272 K/mm3 (150-450); RBC Distribution Width CV 17.7 % (11.6-14.6); RBC Distribution Width SD 58.5 fl (35.1-43.9); White Blood Count 6.6 K/mm3 (4.4-11.0)
[2020-06-11 06:47] LABS: ALB/GLOB Ratio 0.8 RATIO (0.9-2.4); AST(SGOT) 18 U/L (15-37); Alanine Aminotransfer ALT/SGPT 7 U/L (16-61); Albumin, Serum 2.7 g/dL (3.2-5.0); Alkaline Phosphatase 162 U/L (45-117); Anion Gap 5 (5-15); BUN 21 mg/dL (7-18); BUN/Creat Ratio 23.6 RATIO (10-20); Calcium,Total 8.5 mg/dL (8.5-10.1); Chloride 110 mmol/L (98-107); Creatinine, Serum 0.89 mg/dL (0.70-1.30); EST Glomerular Filtration Rate 88 mL/min (>60); Est Glom Filt Rate - Afr Amer 107 mL/min (>60); Estimated Creatinine Clearance 68.31 ml/min; Globulin 3.5 g/dL (2.2-4.2); Glucose 89 mg/dL (74-106); Potassium 4.8 mmol/L (3.5-5.1); Protein, Total 6.2 g/dL (6.4-8.2); Sodium Level 139 mmol/L (136-145); Thyroid Stim Hormone (TSH) 6.13 uIU/mL (0.358-3.74)
[2020-06-11] MEDS: Ipratropium/Albuterol Sulfate 3 ML AMPUL.NEB INHALATION ×3 (07:00→19:22)
[2020-06-11] MEDS: Dextrose 5%/0.9% NaCl 1,000 ML 125 ML IV (07:01)
[2020-06-11 07:41] LABS: Bedside Glucose 95 mg/dL (70-110)
[2020-06-11 08:34] LABS: T4 Free Direct 1.06 ng/dL (0.76-1.46)
[2020-06-11 08:56] LABS: Base Excess -3 mmol/L (-2 to +2); Bicarbonate 22.1 mmol/L (22-26); Blood Gas Specimen Type ART; LPM 1.5 /min; O2 Delivery Device Cannula; PO2 84 mmHG (75-100); SITE R Brach; SO2 96 % (95-99); Total Carbon Dioxide 23 mmol/L
--- NOTE | 2020-06-11 09:38 | TELEMED_ITS ---
[facility] has confirmed receipt of a request for visit. This document confirms receipt of the order initiating the consult. To find the results of the consultation, please view the patient's reports for the scanned Telemed Consult.
[2020-06-11] MEDS: Enoxaparin 40 MG/0.4 ML Syringe SC (10:22)
--- NOTE | 2020-06-11 10:33 | NURSING ---
1033- pt becoming less lethargic. will respond to loud voice. States that he feels like he has been hit like a truck. Still very drowsy. Oriented pt to ICU and why he was here.
[2020-06-11 10:36] LABS: Bedside Glucose 101 mg/dL (70-110)
[2020-06-11] MEDS: Ferrous Sulfate 325 MG Tablet PO ×2 (11:05→17:29)
[2020-06-11] MEDS: Carbidopa/Levodopa 25/250 Tablet PO ×4 (11:11→21:19)
[2020-06-11] MEDS: Pantoprazole Sodium 40 MG Tablet PO ×2 (11:11→21:19)
[2020-06-11] MEDS: Lisinopril 5 MG Tablet PO (11:12)
[2020-06-11] MEDS: Isosorbide Mononitrate 30 MG Tablet PO (11:12)
[2020-06-11] MEDS: Aspirin 325 MG Tablet PO (11:12)
[2020-06-11] MEDS: dilTIAZem CD 180 MG Capsule PO (11:12)
[2020-06-11] MEDS: Sertraline 100 MG Tablet 150 MG PO (11:13)
--- NOTE | 2020-06-11 12:06 | PN_ITS ---
Patient Problems: Active and Suspected Problems (Last Reviewed 03/06/20 @ 04:[address] Vick Gay MD) Encephalopathy acute (Acute) Seizure (Acute) Hypoglycemia (Acute) Hypoxia (Acute) Subjective: Patient seen and examined. He was admitted from his [facility] with a complaint of altered mental status. Patient had recently been admitted in [facility] from June 01- admitted for acute on chronic anemia requiring blood transfusion, IDALIA and acute traumatic rib fractures after he sustained a mechanical fall. During that admission, patient refused any EGD or colonoscopy and was discharged to a senior care facility. He was noted to be unresponsive in the fci and was therefore brought to the ED via the EMS. Apparently had been complaining of intermittent nausea and dysuria in the fci prior to him being brought here. CT of the chest was negative for any PE. This was done because patient became hypoxic while sleeping. He was also noted to have abnormal movements of the body show suspicious for seizures. He was hypoglycemic at that time with blood sugar of 57. Patient seen and examined this morning. Patient was unresponsive and so review of systems cannot be done. Patient kept having myoclonic jerk-like movements. GCS was 7/15. Vitals are otherwise stable. Vitals/I&O's: Vital Signs Temp Pulse Resp BP Pulse Ox 97.4 F L 76 10 L 148/52 H 100 06/11/20 05:49 06/11/20 07:03 06/11/20 07:03 06/11/20 07:00 06/11/20 07:03 Oxygen Flow Rate (L/min) 2 Oxygen Delivery Method Nasal Cannula Weight: 157 lb 13.616 oz Body Mass Index (BMI) 24.0 Finger Stick Blood Glucose 151 Intake and Output for Last 24 Hours 06/09/20 06/10/20 06/11/20 23:59 23:59 23:59 Intake Total 600 / 600 Output Total 450 / 450 Balance 150 / 150 General: - - patient obtunded, GCS 7/15, localises to pain. HEENT: PERRLA, EOMI, Normocephalic Oral: Dry Mucosa Neck: Supple, No JVD, Negative Carotid Bruits Lungs: Clear to auscultation, Normal air movement, No rhonchi, No wheeze Cardiovascular: Regular rate, Regular Rhythm, Normal S1, Normal S2, No murmurs Abdomen: Bowel Sounds Present, Soft, Non Tender, Non-Distended, No Hepato- splenomegaly Extremities: No clubbing, No cyanosis, No edema, Capillary Refill Less than 3 Seconds Skin: No rashes, No breakdown Musculoskeletal: No Tenderness to Palpation of Joints or Extremities Lymphatic: No Cervical, Supraclavicular, or Inguinal Adenopathy Neurological: - - moving all limbs spontaneously, localises to pain, doesnt respond to voice call. GCS is 7/15 Psych/Mental Status: - - patient obtunded. Laboratory Results 06/11/20 01:34: POC Glucose 151 H 06/11/20 02:10: WBC 9.7, RBC 2.80 L, Hgb 7.8 L, Hct 25.8 L, MCV 92.1, MCH 27.9, MCHC 30.2 L, RDW Std Deviation 59.7 H, RDW Coeff of Mat 17.8 H, Plt Count 281, MPV 8.4, Immature Gran % (Auto) 0.700, Neut % (Auto) 85.7 H, Lymph % (Auto) 3.3 L, [place] % (Auto) 8.2, Eos % (Auto) 1.9, Baso % (Auto) 0.2, Absolute Neuts (auto) 8.3 H, Absolute Lymphs (auto) 0.32 L, Nucleated RBC % 0, Differential Comment COMMENT 06/11/20 02:10: Sodium 140, Potassium 4.4, Chloride 110 H, Carbon Dioxide 25.0, Anion Gap 5, BUN 18, Creatinine 0.98, Estim Creat Clear Calc 62.04, Est GFR (MDRD) Af Amer 96, Est GFR (MDRD) Non-Af 79, BUN/Creatinine Ratio 18.3, Glucose 130 H, Calcium 8.7, Total Bilirubin 0.40, AST 13 L, ALT 7 L, Alkaline Phosphatase 149 H, Total Protein 6.3 L, Albumin 2.6 L, Globulin 3.7, Albumin/Globulin Ratio 0.7 L 06/11/20 02:25: Urine Color Tati, Urine Clarity Sl. Cloudy, Urine pH 5.0, Ur Specific [place] 1.020, Urine Protein 30 H, Urine Glucose (UA) Normal, Urine Ketones 15 H, Urine Occult Blood 10 H, Urine Nitrite Negative, Urine Bilirubin Negative, Urine Urobilinogen Normal, Ur Leukocyte Esterase 25 H, Urine RBC 0-5 SEEN, Urine WBC 0-5 SEEN, Ur Squamous Epith Cells 0 SEEN, Amorphous Sediment 1+, Urine Bacteria 0 SEEN, Urine Mucus 0 SEEN 06/11/20 04:18: POC Glucose 57 L 06/11/20 04:48: POC Glucose 156 H 06/11/20 05:49: POC Glucose 95 06/11/20 06:00: Sodium 139, Potassium 4.8, Chloride 110 H, Carbon Dioxide 24.0, Anion Gap 5, BUN 21 H, Creatinine 0.89, Estim Creat Clear Calc 68.31, Est GFR (MDRD) Af Amer 107, Est GFR (MDRD) Non-Af 88, BUN/Creatinine Ratio 23.6 H, Glucose 89, Calcium 8.5, Magnesium 2.0, Total Bilirubin 0.40, AST 18, ALT 7 L, Alkaline Phosphatase 162 H, Troponin I < 0.015, Total Protein 6.2 L, Albumin 2.7 L, Globulin 3.5, Albumin/Globulin Ratio 0.8 L, Folate 11.00, TSH 6.13 H 06/11/20 06:00: Vitamin B12 Pending 06/11/20 06:00: WBC 6.6, RBC 2.90 L, Hgb 8.0 L, Hct 26.0 L, MCV 89.7, MCH 27.6, MCHC 30.8 L, RDW Std Deviation 58.5 H, RDW Coeff of Mat 17.7 H, Plt Count 272, MPV 8.0, Immature Gran % (Auto) 0.500, Neut % (Auto) 95.5 H, Lymph % (Auto) 2.1 L, [place] % (Auto) 1.4, Eos % (Auto) 0.3, Baso % (Auto) 0.2, Absolute Neuts (auto) 6.4, Absolute Lymphs (auto) 0.14 L, Nucleated RBC % 0, Differential Comment COMMENT 06/11/20 06:00: Free T4 1.06 06/11/20 06:15: Ammonia 19.0 06/11/20 07:40: POC Glucose 101 06/11/20 08:49: Specimen Type ART, Sample Site R Brach, pH 7.40, Bicarbonate Actual 22.1, Total CO2 23, Base Excess -3 L, O2 Saturation 96, ABG pCO2 36.0, ABG pO2 84, O2 Delivery Device Cannula, Liter Flow 1.5 06/11/20 09:00: Troponin I < 0.[address] 06/11/20 01:47 IMPRESSION: Chronic involutional changes of the brain. 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 No demonstrated acute intracranial process. Electronically Signed: Eliud Leo MD at 3:43 EDT , Service support , Chest X-Ray 06/11/20 02:29 IMPRESSION: No evidence for acute cardiopulmonary pathology. Pacemaker. Electronically Signed: Eliud Leo MD at 3:46 EDT , Service support , Chest CTA 06/11/20 03:00 IMPRESSION: Normal CTA chest examination, without a demonstrated pulmonary embolism, aortic aneurysm, or aortic dissection. Moderate right pleural effusion and small left pleural effusion with overlying atelectasis in the posterior lungs and lung bases. Interstitial prominence bilaterally probably representing CHF. Tracheomalacia and central bronchial bronchial malacia.. Pacemaker. Electronically Signed: Eliud Leo MD at 6:46 EDT , Service support , Current Medications Acetaminophen (Tylenol) 650 mg PO Q6H PRN PRN PRN Reason: Pain Score 1-10/Temp > 100.7 F Al Hydroxide/Mg Hydroxide (Mylanta Ii) 30 ml PO Q6H PRN PRN PRN Reason: Gastric Burning Albuterol Sulfate (Ventolin Aerosols) 2.5 mg INHALATION Q2H PRN PRN PRN Reason: Dyspnea, wheezing Albuterol/Ipratropium (Duoneb) 3 ml INHALATION Q6HWA.RT [facility] Last Admin: 06/11/20 07:00 Dose: 3 ml Documented by: Aspirin (Aspirin) 325 mg PO DAILYCM [facility] Last Admin: 06/11/20 11:12 Dose: 325 mg Documented by: Atorvastatin Calcium (Lipitor) 20 mg PO QHS [facility] Bupropion HCl (Wellbutrin Tablets) 150 mg PO DAILY [facility] Carbidopa/Levodopa (Sinemet) 2 tablet PO 4X/DAY [facility] Last Admin: 06/11/20 11:11 Dose: 2 tablet Documented by: Diltiazem HCl (Cardizem Cd) 180 mg PO DAILY [facility] Last Admin: 06/11/20 11:12 Dose: 180 mg Documented by: Enoxaparin Sodium (Lovenox) 40 mg SC DAILY [facility] Last Admin: 06/11/20 10:22 Dose: 40 mg Documented by: Entacapone (Comtan) 200 mg PO 4X/DAY [facility] Last Admin: 06/11/20 11:10 Dose: 200 mg Documented by: Ferrous Sulfate (Ferrous Sulfate) 325 mg PO TIDCM [facility] Last Admin: 06/11/20 11:05 Dose: 325 mg Documented by: Gabapentin (Neurontin) 600 mg PO BID [facility] Last Admin: 06/11/20 10:09 Dose: Not Given Documented by: Guaifenesin (Robitussin) 10 ml PO Q4H PRN PRN PRN Reason: COUGH Dextrose/Sodium Chloride (Dextrose 5%/0.9% Nacl) 1,000 mls @ 125 mls/hr IV .Q8H [facility] Last Admin: 06/11/20 07:01 Dose: 125 mls/hr Documented by: Levetiracetam 500 mg/ Sodium (Chloride) 105 mls @ 400 mls/hr IV Q12 [facility] Sodium Chloride () 250 mls @ 15 mls/hr IV .[id number] PRN PRN Reason: Saline Flush Sodium Chloride () 250 mls @ 15 mls/hr IV .[id number] PRN PRN Reason: Additional IVPB Infusion Insulin Human Lispro (Humalog Kwikpen (Bkc)) 0 unit SC Q4 [facility]; Protocol Last Admin: 06/11/20 10:21 Dose: Not Given Documented by: Isosorbide Mononitrate (Imdur) 30 mg PO DAILY [facility] Last Admin: 06/11/20 11:12 Dose: 30 mg Documented by: Levothyroxine Sodium (Synthroid) 175 mcg PO DAILY@0600 [facility] Lisinopril (Zestril) 5 mg PO DAILY [facility] Last Admin: 06/11/20 11:12 Dose: 5 mg Documented by: Magnesium Hydroxide (Milk Of Magnesia) 30 ml PO DAILY PRN PRN PRN Reason: Constipation Nitroglycerin (Nitrostat) 0.4 mg SUBLINGUAL Q5M PRN PRN Reason: CARDIAC/CHEST PAIN Ondansetron HCl (Zofran) 4 mg IV Q8H PRN PRN PRN Reason: NAUSEA/VOMITING Pantoprazole Sodium (Protonix) 40 mg PO BID [facility] Last Admin: 06/11/20 11:11 Dose: 40 mg Documented by: Prochlorperazine Edisylate (Compazine Iv) 5 mg IV Q4H PRN PRN PRN Reason: Breakthrough Nausea/Vomiting Psyllium Hydrophilic Mucilloid (Metamucil) 1 packet PO DAILY PRN PRN PRN Reason: Constipation Senna/Docusate Sodium (Senokot-S, Katelynn-Colace) 2 tablet PO BID PRN PRN PRN Reason: Constipation Sertraline HCl (Zoloft) 150 mg PO DAILY [facility] Last Admin: 06/11/20 11:13 Dose: 150 mg Documented by: Sodium Chloride () 10 - 40 ml IV UD PRN PRN Reason: SALINE FLUSH Tamsulosin HCl (Flomax) 0.4 mg PO DAILY@1730 [facility] Throat Lozenges (Cepacol Sore Throat Lozenge) 1 lozenge MUCOUS MEM Q2H PRN PRN PRN Reason: SORE THROAT Medical Necessity - Tobacco Use Smoking Status: Unknown if ever smoked Tobacco Use: Non-smoker Assessment/Plan All Active Problems (Last Reviewed 03/06/20 @ 04:[address] Vick Gay MD) Encephalopathy acute (Acute) Seizure (Acute) Hypoglycemia (Acute) Hypoxia (Acute) Acute on chronic anemia (Acute) Rib fracture (Acute) Acute kidney injury (Acute) # Acute metabolic encephalopathy * multifactorial, due to hypoxia, hypoglycemia and probable seizure * patient remains very obtunded, and having myoclonic jerks * EEG ordered; neurology consulted * pulmonology on board * seizure precautions; fall precautions * CT of the brain showed old left parietal lobe infarction,a nd chronic involutional changes of the brain. * TSH is 6.13, with free T4 of 1.06 * on Keppra # Hypoglycemia * on D10 infusion * accuchecks q4hrly. ISS * # Acute hypoxic respiratory insufficiency * CTA showed bilateral pleural effusions * on gentle diuresis * titrate oxygen to maintain sats >90% * CTA of the chest showed moderate right pleural effusion, and small left pleural effusion and interstitial prominence probably representing CHF, tracheomalacia adn central bronchial malacia * # Anemia * Hb is 8 today; was 7.8 on admission. this is around his baseline. * # History of CVA #CAD s/p CABG; on aspirin, statin, Sinemet, imdur and lisinopril # Parkinson's disease: on carbidopa/levodopa # hypothyroidism: TSH is 6.14, with normal T4. on synthroid # Paroxysmal atrial fibrillation: on cardizem # Recent mechanical fall with multiple rib fracture: incentive spirometry. PT/OT consult. # GERD: on PPI # Anxiety and depression; on on wellbutrin and sertraline. DVT prophylaxis: lovenox The patient is a 75 y/o M w/ PMHx: CAD s/p CABG x 4, HTN, HLD, Diabetes mellitus type II, PAF, Parkinson's disease, Chronic anemia, Hypothyroidism, Anxiety and Depression, GERD, PAF, recently admitted on 06/01-06/03/20 with acute on chronic anemia requiring blood transfusion with no evidence of acute blood loss, acute kidney injury as well as acute traumatic ninth, 10th and 11th rib fractures related to mechanical fall in addition to treatment of UTI and urinary retention with Flomax discharged on regimen of ciprofloxacin who now represents to the [facility] ED on 06/11/20 with history of confusion noted at senior care facility. 1. Acute Encephalopathy, possibly Multifactorial including Hypoxia, Hypoglycemia, concern for Seizure activity: Will admit to PCU given recent seizure. And worsened status, maintain on monitor given siginificant hypoxia noted in the ED, maintain on seizure precautions, CTA chest with and without contrast pending with pre-medication administered prior given allergy history, UA not marked appearing, no marked WBC elevation but noted shift and lymphopenia, no marked electrolyte disturbances, will obtain NH level, maintain on fall and aspiration precautions, monitor pain regimen for recent multiple rib fractures as may also be contributing to confusion, obtain EEG, unable to obtain MRI secondary to ICD history, loaded with Keppra in the ED, will continue 500 mg BID, maintain on D5NS given recurrent hypoglycemia. Pending further work-up request Neurology consultation. Once patient clinically improved, not post-ictal will allow diet and oral intake transition. Given seizures, possibly aspirating contributing to his hypoxia but CXR not marked appearing as noted. PT, OT, CM consultations for discharge planning. 2. Diabetes mellitus type II with hypoglycemia: At skilled facility patient blood sugar 54 with EMS administration of glucagon with repeat blood sugar in the ED 130 and 151, will cautiously continue patient home insulin regimen and if necessary may need to discontinue long-acting or hold, allow liberal diet given hypoglycemia with transition to ADA once improved and not requiring D5NS, continue frequent accu checks. 3. Recent Mechanical Fall with multiple rib fx: Recent admission with mechanical fall with rib fracture x 3 (R 9th, 10th, 11th rib fx), possibnly contributing to his hypoxia, will encourage HOB, IS, encourage deep breathing and cough routinely, OOB, continue PT and OT evaluation with CM for discharge planning. 4. Recent E. coli and Serratia UTI: Patient treated with regimen of ciprofloxacin to which both were susceptible, repeat urinalysis improved, completed regimen. 5. Chronic normocytic anemia, Fe Deficiency anemia: Admission hemoglobin 7.8, recent admission hemoglobin 7.1 with administration PRBC now recurrently decreased to 7.8, prior baseline noted 8-9, continue to trend. Recent 06/01/2020 iron and ferritin labs performed more suspicious for AOCD or mixed. Will continue his Fe supplementation. Will request guiac. 6. Prior CVA: Evidence of prior CVA with CT brain noting evidence of old L parietal lobe infarct, will maintain on asa, statin, HTN and DM regimen as noted. 7. CAD: s/p CABG x 4, MONTERO to LAD, EPIFANIO to the Distal RCA, Right Radial Artery to the OM branch of CX, and Reverse SVG from the aorta to the Distal RCA 08/17/01, maintain on aspirin pending further anemia evaluation as noted, statin, not on beta-genevieve but on diltiazem, lisinopril. 8. Hypertension: Continue home regimen including diltiazem, isosorbide, lisinopril with hold parameters. 9. Hyperlipidemia: Continue home statin regimen. 10. Parkinson's disease: Continue home carbidopa-levodopa as well as entacapone regimen, fall precautions, PT, OT, case management evaluations for discharge planning. 11. Hypothyroidism: Continue home synthroid regimen. 12. Anxiety and depression: Continue home Wellbutrin, sertraline regimen. 13. PAF: Maintain on diltiazem, not anticoagulated given fall history, maintain on asa only. 14. GERD: PPI. 15. DVT prophylaxis: SCDs, lovenox. 16. CODE status: DNR-CCA, no intubation per recent admission. Inpatient E&M: [id number] [facility] L3
[2020-06-11 12:55] LABS: Bedside Glucose 119 mg/dL (70-110)
[2020-06-11 13:51] LABS: Bedside Glucose 232 mg/dL (70-110)
[2020-06-11] MEDS: Insulin Lispro 100 UNIT/ML INSULN.PEN SC ×3 (13:52→21:19)
[2020-06-11 16:26] LABS: Bedside Glucose 232 mg/dL (70-110)
[2020-06-11] MEDS: Tamsulosin HCl 0.4 MG Capsule PO (17:32)
[2020-06-11] MEDS: Gabapentin 600 MG Tablet PO (21:19)
[2020-06-11] MEDS: Atorvastatin Calcium 20 MG Tablet PO (21:19)
[2020-06-11 21:31] LABS: Bedside Glucose 278 mg/dL (70-110)
[2020-06-12] VITALS (20 sets, daily range): BP systolic 96–153; BP diastolic 45–94; PULSE 69–93; RESP 13–25; TEMP 36.3–37.1; O2SAT 93–100
[2020-06-12 05:42] LABS: Absolute Lymphocyte Count 0.29 X10^3/uL (0.83-4.51); Absolute Neutrophil Count 4.5 X10^3/uL (2.0-7.7); Basophil# 0.01 X10^3/uL; Basophil% 0.2 % (0-1); Hematocrit 26.6 % (40-54); Hemoglobin 8.3 g/dL (13.0-16.5); Lymphocyte # 0.29 X10^3/ul (4.0); Lymphocyte % 5.4 % (19-41); Mean Corp Hgb Conc 31.2 g/dL (32-36); Mean Corpuscular Hgb 27.9 pg (27.0-32.0); Mean Corpuscular Volume 89.6 fL (80-94); Mean Platelet Vol. 8.5 fl (6.2-12.0); Monocyte# 0.54 X10^3/uL; NRBC Flagged by Analyzer 0 % (0-5); Neutrophil # 4.53 X10^3/uL (2.7-7.7); Neutrophil % 83.5 % (47-70); POSITIVE DIFFERENTIAL YES; Platelet Count 293 K/mm3 (150-450); RBC Distribution Width CV 17.7 % (11.6-14.6); RBC Distribution Width SD 58.4 fl (35.1-43.9); Red Blood Count 2.97 M/mm3 (4.6-6.2); White Blood Count 5.4 K/mm3 (4.4-11.0)
[2020-06-12 05:43] LABS: Differential Indicated SCAN CRITERIA MET
[2020-06-12 05:56] LABS: Anion Gap 3 (5-15); BUN 20 mg/dL (7-18); Calcium,Total 8.7 mg/dL (8.5-10.1); Chloride 107 mmol/L (98-107); Creatinine, Serum 0.87 mg/dL (0.70-1.30); EST Glomerular Filtration Rate 91 mL/min (>60); Est Glom Filt Rate - Afr Amer 110 mL/min (>60); Estimated Creatinine Clearance 69.89 ml/min; Glucose 176 mg/dL (74-106); Potassium 4.5 mmol/L (3.5-5.1); Sodium Level 137 mmol/L (136-145)
[2020-06-12 06:18] LABS: Differential Comment SCANNED
[2020-06-12] MEDS: Levothyroxine 175 MCG Tablet PO (06:36)
[2020-06-12] MEDS: Insulin Lispro 100 UNIT/ML INSULN.PEN SC ×4 (06:36→21:31)
[2020-06-12 06:45] LABS: Bedside Glucose 164 mg/dL (70-110)
[2020-06-12] MEDS: Ipratropium/Albuterol Sulfate 3 ML AMPUL.NEB INHALATION ×2 (06:58→20:02)
--- NOTE | 2020-06-12 07:19 | PN_ITS ---
Subjective: Patient did well overnight. No acute issues were reported. Glucose has been controlled and no seizure activity has been noted in the intensive care unit. Patient reports he is back to his baseline at this time. Patient states he is established with an steel sash erector at the [facility], but only gets to see them every 6 months. General: Alert, Oriented x3, Cooperative, No apparent distress, Well developed, Well nourished, - - No conversational dyspnea. HEENT: Atraumatic, PERRLA, EOMI, Normocephalic, - - No tongue laceration noted. No scleral icterus or injection noted Oral: Moist Mucosa, No Gingival or Mucosal Lesions/ Ulcerations Neck: Supple, No JVD, No Nodes, Trachea Midline Lungs: Clear to auscultation, Normal air movement, No rhonchi, No wheeze, No rales, - - Symmetric expansion. Cardiovascular: Regular rate, Regular Rhythm, Normal S1, Normal S2, Murmur, No rub noted, No Gallop Abdomen: Bowel Sounds Present, Soft, Non Tender, Non-Distended Extremities: No clubbing, No cyanosis, No edema Skin: No rashes, No breakdown Musculoskeletal: No Tenderness to Palpation of Joints or Extremities Lymphatic: No Cervical, Supraclavicular, or Inguinal Adenopathy Neurological: Cranial nerves II-XII grossly intact, Neuro grossly intact, Motor Exam 5/5 strength throughout Psych/Mental Status: Alert and oriented to time, place, person, mood and affect Vital Signs Temp Pulse Resp BP Pulse Ox 36.6 C 71 13 133/68 H 100 06/12/20 04:00 06/12/20 07:00 06/12/20 07:00 06/12/20 07:00 06/12/20 07:00 Oxygen Flow Rate (L/min) 2 Oxygen Delivery Method Room Air Weight: 73.2 kg Body Mass Index (BMI) 24.0 Finger Stick Blood Glucose 151 Intake and Output for Last 24 Hours 06/10/20 06/11/20 06/12/20 23:59 23:59 23:59 Intake Total 2262.92 / 2262.92 50 / 50 Output Total 1025 / 1325 425 / 425 Balance 1237.92 / 937.92 -375 / -375 Labs (Last 48 Hours) 06/11/20 06/11/20 06/11/20 01:34 02:10 02:10 WBC 9.7 RBC 2.80 L Hgb 7.8 L Hct 25.8 L MCV 92.1 MCH 27.9 MCHC 30.2 L RDW Std Deviation 59.7 H RDW Coeff of Mat 17.8 H Plt Count 281 MPV 8.4 Immature Gran % (Auto) 0.700 Neut % (Auto) 85.7 H Lymph % (Auto) 3.3 L [place] % (Auto) 8.2 Eos % (Auto) 1.9 Baso % (Auto) 0.2 Absolute Neuts (auto) 8.3 H Absolute Lymphs (auto) 0.32 L Nucleated RBC % 0 Differential Comment COMMENT Specimen Type Sample Site pH Bicarbonate Actual Total CO2 Base Excess O2 Saturation ABG pCO2 ABG pO2 O2 Delivery Device Liter Flow Sodium 140 Potassium 4.4 Chloride 110 H Carbon Dioxide 25.0 Anion Gap 5 BUN 18 Creatinine 0.98 Estim Creat Clear Calc 62.04 Est GFR (MDRD) Af Amer 96 Est GFR (MDRD) Non-Af 79 BUN/Creatinine Ratio 18.3 Glucose 130 H Calcium 8.7 Magnesium Total Bilirubin 0.40 AST 13 L ALT 7 L Alkaline Phosphatase 149 H Ammonia Troponin I Total Protein 6.3 L Albumin 2.6 L Globulin 3.7 Albumin/Globulin Ratio 0.7 L Vitamin B12 Folate TSH Free T4 Urine Color Urine Clarity Urine pH Ur Specific [place] Urine Protein Urine Glucose (UA) Urine Ketones Urine Occult Blood Urine Nitrite Urine Bilirubin Urine Urobilinogen Ur Leukocyte Esterase Urine RBC Urine WBC Ur Squamous Epith Cells Amorphous Sediment Urine Bacteria Urine Mucus POC Glucose 151 H 06/11/20 06/11/20 06/11/20 02:25 04:18 04:48 WBC RBC Hgb Hct MCV MCH MCHC RDW Std Deviation RDW Coeff of Mat Plt Count MPV Immature Gran % (Auto) Neut % (Auto) Lymph % (Auto) [place] % (Auto) Eos % (Auto) Baso % (Auto) Absolute Neuts (auto) Absolute Lymphs (auto) Nucleated RBC % Differential Comment Specimen Type Sample Site pH Bicarbonate Actual Total CO2 Base Excess O2 Saturation ABG pCO2 ABG pO2 O2 Delivery Device Liter Flow Sodium Potassium Chloride Carbon Dioxide Anion Gap BUN Creatinine Estim Creat Clear Calc Est GFR (MDRD) Af Amer Est GFR (MDRD) Non-Af BUN/Creatinine Ratio Glucose Calcium Magnesium Total Bilirubin AST ALT Alkaline Phosphatase Ammonia Troponin I Total Protein Albumin Globulin Albumin/Globulin Ratio Vitamin B12 Folate TSH Free T4 Urine Color [place]ati Urine Clarity Sl. Cloudy Urine pH 5.0 Ur Specific [place] 1.020 Urine Protein 30 H Urine Glucose (UA) Normal Urine Ketones 15 H Urine Occult Blood 10 H Urine Nitrite Negative Urine Bilirubin Negative Urine Urobilinogen Normal Ur Leukocyte Esterase 25 H Urine RBC 0-5 SEEN Urine WBC 0-5 SEEN Ur Squamous Epith Cells 0 SEEN Amorphous Sediment 1+ Urine Bacteria 0 SEEN Urine Mucus 0 SEEN POC Glucose 57 L 156 H 06/11/20 06/11/20 06/11/20 05:49 06:00 06:00 WBC RBC Hgb Hct MCV MCH MCHC RDW Std Deviation RDW Coeff of Mat Plt Count MPV Immature Gran % (Auto) Neut % (Auto) Lymph % (Auto) [place] % (Auto) Eos % (Auto) Baso % (Auto) Absolute Neuts (auto) Absolute Lymphs (auto) Nucleated RBC % Differential Comment Specimen Type Sample Site pH Bicarbonate Actual Total CO2 Base Excess O2 Saturation ABG pCO2 ABG pO2 O2 Delivery Device Liter Flow Sodium 139 Potassium 4.8 Chloride 110 H Carbon Dioxide 24.0 Anion Gap 5 BUN 21 H Creatinine 0.89 Estim Creat Clear Calc 68.31 Est GFR (MDRD) Af Amer 107 Est GFR (MDRD) Non-Af 88 BUN/Creatinine Ratio 23.6 H Glucose 89 Calcium 8.5 Magnesium 2.0 Total Bilirubin 0.40 AST 18 ALT 7 L Alkaline Phosphatase 162 H Ammonia Troponin I < 0.015 Total Protein 6.2 L Albumin 2.7 L Globulin 3.5 Albumin/Globulin Ratio 0.8 L Vitamin B12 Pending Folate 11.00 TSH 6.13 H Free T4 Urine Color Urine Clarity Urine pH Ur Specific [place] Urine Protein Urine Glucose (UA) Urine Ketones Urine Occult Blood Urine Nitrite Urine Bilirubin Urine Urobilinogen Ur Leukocyte Esterase Urine RBC Urine WBC Ur Squamous Epith Cells Amorphous Sediment Urine Bacteria Urine Mucus POC Glucose 95 06/11/20 06/11/20 06/11/20 06:00 06:00 06:15 WBC 6.6 RBC 2.90 L Hgb 8.0 L Hct 26.0 L MCV 89.7 MCH 27.6 MCHC 30.8 L RDW Std Deviation 58.5 H RDW Coeff of Mat 17.7 H Plt Count 272 MPV 8.0 Immature Gran % (Auto) 0.500 Neut % (Auto) 95.5 H Lymph % (Auto) 2.1 L [place] % (Auto) 1.4 Eos % (Auto) 0.3 Baso % (Auto) 0.2 Absolute Neuts (auto) 6.4 Absolute Lymphs (auto) 0.14 L Nucleated RBC % 0 Differential Comment COMMENT Specimen Type Sample Site pH Bicarbonate Actual Total CO2 Base Excess O2 Saturation ABG pCO2 ABG pO2 O2 Delivery Device Liter Flow Sodium Potassium Chloride Carbon Dioxide Anion Gap BUN Creatinine Estim Creat Clear Calc Est GFR (MDRD) Af Amer Est GFR (MDRD) Non-Af BUN/Creatinine Ratio Glucose Calcium Magnesium Total Bilirubin AST ALT Alkaline Phosphatase Ammonia 19.0 Troponin I Total Protein Albumin Globulin Albumin/Globulin Ratio Vitamin B12 Folate TSH Free T4 1.06 Urine Color Urine Clarity Urine pH Ur Specific [place] Urine Protein Urine Glucose (UA) Urine Ketones Urine Occult Blood Urine Nitrite Urine Bilirubin Urine Urobilinogen Ur Leukocyte Esterase Urine RBC Urine WBC Ur Squamous Epith Cells Amorphous Sediment Urine Bacteria Urine Mucus POC Glucose 06/11/20 06/11/20 06/11/20 07:40 08:49 09:00 WBC RBC Hgb Hct MCV MCH MCHC RDW Std Deviation RDW Coeff of Mat Plt Count MPV Immature Gran % (Auto) Neut % (Auto) Lymph % (Auto) [place] % (Auto) Eos % (Auto) Baso % (Auto) Absolute Neuts (auto) Absolute Lymphs (auto) Nucleated RBC % Differential Comment Specimen Type ART Sample Site R Brach pH 7.40 Bicarbonate Actual 22.1 Total CO2 23 Base Excess -3 L O2 Saturation 96 ABG pCO2 36.0 ABG pO2 84 O2 Delivery Device Cannula Liter Flow 1.5 Sodium Potassium Chloride Carbon Dioxide Anion Gap BUN Creatinine Estim Creat Clear Calc Est GFR (MDRD) Af Amer Est GFR (MDRD) Non-Af BUN/Creatinine Ratio Glucose Calcium Magnesium Total Bilirubin AST ALT Alkaline Phosphatase Ammonia Troponin I < 0.015 Total Protein Albumin Globulin Albumin/Globulin Ratio Vitamin B12 Folate TSH Free T4 Urine Color Urine Clarity Urine pH Ur Specific [place] Urine Protein Urine Glucose (UA) Urine Ketones Urine Occult Blood Urine Nitrite Urine Bilirubin Urine Urobilinogen Ur Leukocyte Esterase Urine RBC Urine WBC Ur Squamous Epith Cells Amorphous Sediment Urine Bacteria Urine Mucus POC Glucose 101 06/11/20 06/11/20 06/11/20 10:19 13:48 16:22 WBC RBC Hgb Hct MCV MCH MCHC RDW Std Deviation RDW Coeff of Mat Plt Count MPV Immature Gran % (Auto) Neut % (Auto) Lymph % (Auto) [place] % (Auto) Eos % (Auto) Baso % (Auto) Absolute Neuts (auto) Absolute Lymphs (auto) Nucleated RBC % Differential Comment Specimen Type Sample Site pH Bicarbonate Actual Total CO2 Base Excess O2 Saturation ABG pCO2 ABG pO2 O2 Delivery Device Liter Flow Sodium Potassium Chloride Carbon Dioxide Anion Gap BUN Creatinine Estim Creat Clear Calc Est GFR (MDRD) Af Amer Est GFR (MDRD) Non-Af BUN/Creatinine Ratio Glucose Calcium Magnesium Total Bilirubin AST ALT Alkaline Phosphatase Ammonia Troponin I Total Protein Albumin Globulin Albumin/Globulin Ratio Vitamin B12 Folate TSH Free T4 Urine Color Urine Clarity Urine pH Ur Specific [place] Urine Protein Urine Glucose (UA) Urine Ketones Urine Occult Blood Urine Nitrite Urine Bilirubin Urine Urobilinogen Ur Leukocyte Esterase Urine RBC Urine WBC Ur Squamous Epith Cells Amorphous Sediment Urine Bacteria Urine Mucus POC Glucose 119 H 232 H 232 H 06/11/20 06/12/20 06/12/20 21:16 05:30 05:30 WBC 5.4 RBC 2.97 L Hgb 8.3 L Hct 26.6 L MCV 89.6 MCH 27.9 MCHC 31.2 L RDW Std Deviation 58.4 H RDW Coeff of Mat 17.7 H Plt Count 293 MPV 8.5 Immature Gran % (Auto) 0.900 Neut % (Auto) 83.5 H Lymph % (Auto) 5.4 L [place] % (Auto) 10.0 Eos % (Auto) 0.0 Baso % (Auto) 0.2 Absolute Neuts (auto) 4.5 Absolute Lymphs (auto) 0.29 L Nucleated RBC % 0 Differential Comment SCANNED Specimen Type Sample Site pH Bicarbonate Actual Total CO2 Base Excess O2 Saturation ABG pCO2 ABG pO2 O2 Delivery Device Liter Flow Sodium 137 Potassium 4.5 Chloride 107 Carbon Dioxide 27.0 Anion Gap 3 L BUN 20 H Creatinine 0.87 Estim Creat Clear Calc 69.89 Est GFR (MDRD) Af Amer 110 Est GFR (MDRD) Non-Af 91 BUN/Creatinine Ratio 23.0 H Glucose 176 H Calcium 8.7 Magnesium Total Bilirubin AST ALT Alkaline Phosphatase Ammonia Troponin I Total Protein Albumin Globulin Albumin/Globulin Ratio Vitamin B12 Folate TSH Free T4 Urine Color Urine Clarity Urine pH Ur Specific [place] Urine Protein Urine Glucose (UA) Urine Ketones Urine Occult Blood Urine Nitrite Urine Bilirubin Urine Urobilinogen Ur Leukocyte Esterase Urine RBC Urine WBC Ur Squamous Epith Cells Amorphous Sediment Urine Bacteria Urine Mucus POC Glucose 278 H 06/12/20 06:34 WBC RBC Hgb Hct MCV MCH MCHC RDW Std Deviation RDW Coeff of Mat Plt Count MPV Immature Gran % (Auto) Neut % (Auto) Lymph % (Auto) [place] % (Auto) Eos % (Auto) Baso % (Auto) Absolute Neuts (auto) Absolute Lymphs (auto) Nucleated RBC % Differential Comment Specimen Type Sample Site pH Bicarbonate Actual Total CO2 Base Excess O2 Saturation ABG pCO2 ABG pO2 O2 Delivery Device Liter Flow Sodium Potassium Chloride Carbon Dioxide Anion Gap BUN Creatinine Estim Creat Clear Calc Est GFR (MDRD) Af Amer Est GFR (MDRD) Non-Af BUN/Creatinine Ratio Glucose Calcium Magnesium Total Bilirubin AST ALT Alkaline Phosphatase Ammonia Troponin I Total Protein Albumin Globulin Albumin/Globulin Ratio Vitamin B12 Folate TSH Free T4 Urine Color Urine Clarity Urine pH Ur Specific [place] Urine Protein Urine Glucose (UA) Urine Ketones Urine Occult Blood Urine Nitrite Urine Bilirubin Urine Urobilinogen Ur Leukocyte Esterase Urine RBC Urine WBC Ur Squamous Epith Cells Amorphous Sediment Urine Bacteria Urine Mucus POC Glucose 164 H Microbiology 06/12/20 00:00 Stool Stool Occult Blood (JENNY) - Final Occult Blood Positive Medical Necessity - Tobacco Use Smoking Status: Unknown if ever smoked Tobacco Use: Non-smoker Assessment/Plan All Active Problems (Last Reviewed 03/06/20 @ 04:[address] Vick Gay MD) Encephalopathy acute (Acute) Seizure (Acute) Hypoglycemia (Acute) Hypoxia (Acute) Acute on chronic anemia (Acute) Rib fracture (Acute) Acute kidney injury (Acute) RECOMMENDATIONS: 1. Maintain patient in seizure precautions. 2. Likely okay to discontinue Keppra therapy 3. May benefit from establishment with steel sash erector in [facility] program to allow for closer follow-up 4. Avoid all sedating medications. 5. Okay to leave the intensive care unit from my perspective IMPRESSIONS: 1. Encephalopathy Resolved. Clinical concern for new onset seizure activity with subsequent postictal state. No seizure activity was noted on EEG. Clinical suspicion for a hypoglycemic seizure with postictal state leading to presentation. Patient appears to be doing well at this time. 2. Diabetes mellitus Patient appears to be very brittle with highly variable blood sugars. Patient is very clear that most of his seizure activity has happened with lower blood sugars. Patient does follow at the CT, but may benefit from closer evaluation and titration of diabetic medications. 3. Anemia The patient does have baseline, chronic anemia and refused to undergo endoscopic evaluation during his prior hospitalization. Plan to continue twice daily PPI therapy. Monitor blood counts daily with plans to transfuse if hemoglobin drops below 7 g/dL. Patient would benefit from outpatient evaluation. 4. History of CVA/coronary artery disease status post CABG/hypertension/hyperlipidemia/Parkinson's disease/hypothyroidism/paroxysmal atrial fibrillation Complicates care, management, recovery and prognosis. Okay to continue with baseline medications from my perspective. Inpatient E&M: [id number] Subs Hosp L2
--- NOTE | 2020-06-12 07:33 | PN_ITS ---
Patient Problems: Active and Suspected Problems (Last Reviewed 03/06/20 @ 04:[address] Vick Gay MD) Encephalopathy acute (Acute) Seizure (Acute) Hypoglycemia (Acute) Hypoxia (Acute) Reason for Visit: Follow-up on acute metabolic encephalopathy/recurrent hypoglycemia Subjective: Patient was seen and examined. He is alert oriented to person, place and ?time. He complains of feeling fatigue. He is unable to recollect events prior to admission. He cannot remember that he came from a facility. No seizure activity overnight. No other events overnight. Vitals have remained stable. EEG showed normal stage II sleep study. Objective: Physical exam: General: Alert oriented x2/3, not pale, not jaundiced, well hydrated HEENT: PERRLA, EOMI, Normocephalic Oral: Dry Mucosa Neck: Supple, No JVD, Negative Carotid Bruits Lungs: Clear to auscultation, Normal air movement, No rhonchi, No wheeze Cardiovascular: Regular rate, Regular Rhythm, Normal S1, Normal S2, No murmurs Abdomen: Bowel Sounds Present, Soft, Non Tender, Non-Distended, No Hepato- splenomegaly Extremities: No clubbing, No cyanosis, No edema, Capillary Refill Less than 3 Seconds Skin: No rashes, No breakdown Musculoskeletal: No Tenderness to Palpation of Joints or Extremities Lymphatic: No Cervical, Supraclavicular, or Inguinal Adenopathy Neurological: Grossly intact Vitals/I&O's: Vital Signs Temp Pulse Resp BP Pulse Ox 97.8 F 71 13 133/68 H 100 06/12/20 04:00 06/12/20 07:00 06/12/20 07:00 06/12/20 07:00 06/12/20 07:00 Oxygen Flow Rate (L/min) 2 Oxygen Delivery Method Room Air Weight: 73.2 kg Body Mass Index (BMI) 24.0 Finger Stick Blood Glucose 151 Intake and Output for Last 24 Hours 06/10/20 06/11/20 06/12/20 23:59 23:59 23:59 Intake Total 2262.92 / 2262.92 50 / 50 Output Total 1025 / 1325 425 / 425 Balance 1237.92 / 937.92 -375 / -375 Microbiology Past 72 Hours 06/12/20 00:00 Stool Stool Occult Blood (JENNY) - Final Occult Blood Positive Laboratory Results 06/11/20 05:49: POC Glucose 95 06/11/20 06:00: Free T4 1.06 06/11/20 07:40: POC Glucose 101 06/11/20 08:49: Specimen Type ART, Sample Site R Brach, pH 7.40, Bicarbonate Actual 22.1, Total CO2 23, Base Excess -3 L, O2 Saturation 96, ABG pCO2 36.0, ABG pO2 84, O2 Delivery Device Cannula, Liter Flow 1.5 06/11/20 09:00: Troponin I < 0.015 06/11/20 10:19: POC Glucose 119 H 06/11/20 13:48: POC Glucose 232 H 06/11/20 16:22: POC Glucose 232 H 06/11/20 21:16: POC Glucose 278 H 06/12/20 05:30: WBC 5.4, RBC 2.97 L, Hgb 8.3 L, Hct 26.6 L, MCV 89.6, MCH 27.9, MCHC 31.2 L, RDW Std Deviation 58.4 H, RDW Coeff of Mat 17.7 H, Plt Count 293, MPV 8.5, Immature Gran % (Auto) 0.900, Neut % (Auto) 83.5 H, Lymph % (Auto) 5.4 L, [place] % (Auto) 10.0, Eos % (Auto) 0.0, Baso % (Auto) 0.2, Absolute Neuts (auto) 4.5, Absolute Lymphs (auto) 0.29 L, Nucleated RBC % 0, Differential Com ment SCANNED 06/12/20 05:30: Sodium 137, Potassium 4.5, Chloride 107, Carbon Dioxide 27.0, Anion Gap 3 L, BUN 20 H, Creatinine 0.87, Estim Creat Clear Calc 69.89, Est GFR (MDRD) Af Amer 110, Est GFR (MDRD) Non-Af 91, BUN/Creatinine Ratio 23.0 H, Glucose 176 H, Calcium 8.7 06/12/20 06:34: POC Glucose 164 H Current Medications Acetaminophen (Tylenol) 650 mg PO Q6H PRN PRN PRN Reason: Pain Score 1-10/Temp > 100.7 F Al Hydroxide/Mg Hydroxide (Mylanta Ii) 30 ml PO Q6H PRN PRN PRN Reason: Gastric Burning Albuterol Sulfate (Ventolin Aerosols) 2.5 mg INHALATION Q2H PRN PRN PRN Reason: Dyspnea, wheezing Albuterol/Ipratropium (Duoneb) 3 ml INHALATION Q6HWA.RT [facility] Last Admin: 06/12/20 06:58 Dose: 3 ml Documented by: Aspirin (Aspirin) 325 mg PO DAILYCM [facility] Last Admin: 06/11/20 11:12 Dose: 325 mg Documented by: Atorvastatin Calcium (Lipitor) 20 mg PO QHS [facility] Last Admin: 06/11/20 21:19 Dose: 20 mg Documented by: Bupropion HCl (Wellbutrin Sr (150mg Tablets)) 150 mg PO DAILY [facility] Carbidopa/Levodopa (Sinemet) 2 tablet PO 4X/DAY [facility] Last Admin: 06/11/20 21:19 Dose: 2 tablet Documented by: Diltiazem HCl (Cardizem Cd) 180 mg PO DAILY [facility] Last Admin: 06/11/20 11:12 Dose: 180 mg Documented by: Enoxaparin Sodium (Lovenox) 40 mg SC DAILY [facility] Last Admin: 06/11/20 10:22 Dose: 40 mg Documented by: Entacapone (Comtan) 200 mg PO 4X/DAY [facility] Last Admin: 06/11/20 21:19 Dose: 200 mg Documented by: Ferrous Sulfate (Ferrous Sulfate) 325 mg PO TIDCM [facility] Last Admin: 06/11/20 17:29 Dose: 325 mg Documented by: Gabapentin (Neurontin) 600 mg PO BID [facility] Last Admin: 06/11/20 21:19 Dose: 600 mg Documented by: Guaifenesin (Robitussin) 10 ml PO Q4H PRN PRN PRN Reason: COUGH Levetiracetam 500 mg/ Sodium (Chloride) 105 mls @ 400 mls/hr IV Q12 [facility] Last Infusion: 06/11/20 22:42 Dose: Infused Documented by: Sodium Chloride () 250 mls @ 15 mls/hr IV .[id number] PRN PRN Reason: Saline Flush Sodium Chloride () 250 mls @ 15 mls/hr IV .[id number] PRN PRN Reason: Additional IVPB Infusion Insulin Human Lispro (Humalog Kwikpen (Bkc)) 0 unit SC ACHS [facility]; Protocol Last Admin: 06/12/20 06:36 Dose: 1 u Documented by: Isosorbide Mononitrate (Imdur) 30 mg PO DAILY [facility] Last Admin: 06/11/20 11:12 Dose: 30 mg Documented by: Levothyroxine Sodium (Synthroid) 175 mcg PO DAILY@0600 [facility] Last Admin: 06/12/20 06:36 Dose: 175 mcg Documented by: Lisinopril (Zestril) 5 mg PO DAILY [facility] Last Admin: 06/11/20 11:12 Dose: 5 mg Documented by: Magnesium Hydroxide (Milk Of Magnesia) 30 ml PO DAILY PRN PRN PRN Reason: Constipation Nitroglycerin (Nitrostat) 0.4 mg SUBLINGUAL Q5M PRN PRN Reason: CARDIAC/CHEST PAIN Nutritional Formula (Lactose Free) (Glucerna Shake) 120 ml PO TIDCM [facility] Ondansetron HCl (Zofran) 4 mg IV Q8H PRN PRN PRN Reason: NAUSEA/VOMITING Pantoprazole Sodium (Protonix) 40 mg PO BID [facility] Last Admin: 06/11/20 21:19 Dose: 40 mg Documented by: Prochlorperazine Edisylate (Compazine Iv) 5 mg IV Q4H PRN PRN PRN Reason: Breakthrough Nausea/Vomiting Psyllium Hydrophilic Mucilloid (Metamucil) 1 packet PO DAILY PRN PRN PRN Reason: Constipation Senna/Docusate Sodium (Senokot-S, Katelynn-Colace) 2 tablet PO BID PRN PRN PRN Reason: Constipation Sertraline HCl (Zoloft) 150 mg PO DAILY [facility] Last Admin: 06/11/20 11:13 Dose: 150 mg Documented by: Sodium Chloride () 10 - 40 ml IV UD PRN PRN Reason: SALINE FLUSH Tamsulosin HCl (Flomax) 0.4 mg PO DAILY@1730 [facility] Last Admin: 06/11/20 17:32 Dose: 0.4 mg Documented by: Throat Lozenges (Cepacol Sore Throat Lozenge) 1 lozenge MUCOUS MEM Q2H PRN PRN PRN Reason: SORE THROAT STROKE Vital Signs/Narrative: Vital Signs Temp Pulse Resp BP Pulse Ox 06/12/20 07:00 71 13 133/68 H 100 06/12/20 06:59 73 17 100 10/12/20 06:00 83 17 139/94 H 99 06/12/20 05:00 72 17 136/67 H 100 06/12/20 04:00 97.8 F 82 25 H 137/57 H 98 06/12/20 03:59 83 Medical Necessity - Tobacco Use Smoking Status: Unknown if ever smoked Tobacco Use: Non-smoker Assessment/Plan All Active Problems (Last Reviewed 03/06/20 @ 04:[address] Vick Gay MD) Encephalopathy acute (Acute) Seizure (Acute) Hypoglycemia (Acute) Hypoxia (Acute) Acute on chronic anemia (Acute) Rib fracture (Acute) Acute kidney injury (Acute) 1. Acute metabolic encephalopathy, multifactorial secondary to recurrent hypoglycemia, hypoxia Seizure disorder ruled out with normal EEG. 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 Unable to do MRI on account of ICD Lead sugars have improved. Off D10 IV fluids. 2. Recurrent hypoglycemia, HbA1c 6.2, will hold off on restarting on home Lantus and metformin for now We will continue to trend blood glucose May resume just metformin and avoid insulin depending on blood sugar profile in the next 24 hrs as HbA1c is at goal 3. Acute hypoxic respiratory insufficiency secondary to bilateral pleural effusion, resolved Encourage use of incentive spirometer 4. Bilateral pleural effusions likely secondary to recent IV fluids in recent admission Last 2D echo in January 2020 showed EF 60% We will give Lasix 40 mg IV x1 and continue with 40 mg p.o. twice daily Trend renal function in the light of recent acute kidney injury 5. Chronic anemia, appears to be at the baseline, hemoglobin is 8.3 Recent history of severe anemia, FOBT is positive, patient had refused EGD/colonoscopy in the recent past Continue on PPI, Will discuss again with the daughters on possible EGD/colonoscopy, possibly in the outpatient 6. Recent ninth, 10th and 11th rib fractures from mechanical fall, continue to encourage incentive spirometer 7. CAD status post CABG/history of CVA/paroxysmal atrial fibrillation/hypothyroidism, all remain stable Continue on atorvastatin, Cardizem, Imdur, lisinopril, Synthroid 8. GERD on PPI 9. Parkinson's disease, continue on Sinemet and entacapone 10. Anxiety/depression, continue on Wellbutrin, Zoloft and gabapentin 11. DVT prophylaxis with Lovenox subcu 12. Disposition: Social work/case management follow-up for family's preference for discharge possibly to alf facility Will transfer out of ICU to PCU Inpatient E&M: [id number] Subs Hosp L2
[2020-06-12 08:20] LABS: Cholesterol 123 mg/dL (200); High Density Lipoprotein 52 mg/dL; Triglycerides 82 mg/dL; Very Low Density Lipoprotein 16 mg/dL (5-40)
[2020-06-12] MEDS: Aspirin 325 MG Tablet PO (09:06)
[2020-06-12] MEDS: Glucerna Shake 120 ML LIQUID PO ×3 (09:07→16:33)
[2020-06-12] MEDS: Ferrous Sulfate 325 MG Tablet PO ×3 (09:07→16:17)
[2020-06-12] MEDS: dilTIAZem CD 180 MG Capsule PO (09:08)
[2020-06-12] MEDS: Isosorbide Mononitrate 30 MG Tablet PO (09:09)
[2020-06-12] MEDS: Enoxaparin 40 MG/0.4 ML Syringe SC (09:09)
[2020-06-12] MEDS: Pantoprazole Sodium 40 MG Tablet PO ×2 (09:10→21:31)
[2020-06-12] MEDS: Gabapentin 600 MG Tablet PO ×2 (09:10→21:31)
[2020-06-12] MEDS: Carbidopa/Levodopa 25/250 Tablet PO ×4 (09:11→21:31)
[2020-06-12] MEDS: Sertraline 100 MG Tablet 150 MG PO (09:11)
[2020-06-12] MEDS: Lisinopril 5 MG Tablet PO (09:11)
[2020-06-12 09:37] LABS: Hemoglobin A1c 6.2 % (3.8-5.6)
[2020-06-12] MEDS: Furosemide 40 MG/4 ML Vial IV (10:34)
[2020-06-12] MEDS: buPROPion (SR) 150 MG Tablet.SA PO (10:34)
[2020-06-12] MEDS: 0.9% Saline Lock 10 ML Syringe IV (10:41)
--- NOTE | 2020-06-12 11:13 | CASEMGMT ---
Patient is from [facility]. SW faxed updates to [place]. He will require insurance authorization before he can return. [place] DESIR MSW
[2020-06-12 11:16] LABS: Bedside Glucose 205 mg/dL (70-110)
[2020-06-12 12:42] LABS: Vitamin B12 1299 pg/mL (211-911)
--- NOTE | 2020-06-12 16:05 | CASEMGMT ---
Readmission note: Pt initially admitted to [facility] 06/01-06/03/2020 for falls, debility, IDALIA and was discharged to [facility]. Pt was brought back in on 06/11/2020 for blood sugar of 54 and confusion. Pt was given glucagon en route via EMS. Pt then dropped to 57 blood sugar again while in ED. Pt admitted for Encephalopathy, hypoglycemia to ICU. Plan is for pt to go back to [place] at discharge. Pt transferred down to PCU today. CM to follow. SStmauro MANZANO CM
[2020-06-12] MEDS: Tamsulosin HCl 0.4 MG Capsule PO (16:18)
[2020-06-12 16:50] LABS: Bedside Glucose 220 mg/dL (70-110)
[2020-06-12] MEDS: Furosemide 40 MG Tablet PO (18:34)
[2020-06-12] MEDS: Atorvastatin Calcium 20 MG Tablet PO (21:31)
[2020-06-12 21:45] LABS: Bedside Glucose 207 mg/dL (70-110)
[2020-06-13] VITALS (13 sets, daily range): BP systolic 123–137; BP diastolic 49–59; PULSE 70–91; RESP 18–26; TEMP 36.4–36.8; O2SAT 92–98
[2020-06-13] MEDS: Levothyroxine 175 MCG Tablet PO (06:27)
[2020-06-13] MEDS: Insulin Lispro 100 UNIT/ML INSULN.PEN SC ×4 (06:39→21:42)
[2020-06-13 06:56] LABS: Absolute Lymphocyte Count 0.53 X10^3/uL (0.83-4.51); Absolute Neutrophil Count 4.7 X10^3/uL (2.0-7.7); Basophil# 0.01 X10^3/uL; Basophil% 0.2 % (0-1); Eosinophil# 0.12 X10^3/uL; Hematocrit 26.2 % (40-54); Lymphocyte # 0.53 X10^3/ul (4.0); Lymphocyte % 8.7 % (19-41); Mean Corp Hgb Conc 30.5 g/dL (32-36); Mean Corpuscular Hgb 27.5 pg (27.0-32.0); Mean Platelet Vol. 8.4 fl (6.2-12.0); Monocyte# 0.73 X10^3/uL; NRBC Flagged by Analyzer 0 % (0-5); Neutrophil # 4.67 X10^3/uL (2.7-7.7); Neutrophil % 76.4 % (47-70); POSITIVE DIFFERENTIAL YES; Platelet Count 313 K/mm3 (150-450); RBC Distribution Width SD 60.1 fl (35.1-43.9); Red Blood Count 2.91 M/mm3 (4.6-6.2); White Blood Count 6.1 K/mm3 (4.4-11.0)
[2020-06-13 06:59] LABS: Differential Indicated SCAN CRITERIA MET
[2020-06-13] MEDS: Ipratropium/Albuterol Sulfate 3 ML AMPUL.NEB INHALATION ×3 (07:17→18:49)
[2020-06-13 07:37] LABS: ALB/GLOB Ratio 0.8 RATIO (0.9-2.4); AST(SGOT) 12 U/L (15-37); Alanine Aminotransfer ALT/SGPT 9 U/L (16-61); Albumin, Serum 2.7 g/dL (3.2-5.0); Alkaline Phosphatase 150 U/L (45-117); Anion Gap 3 (5-15); BUN 20 mg/dL (7-18); BUN/Creat Ratio 24.1 RATIO (10-20); Calcium,Total 8.6 mg/dL (8.5-10.1); Chloride 107 mmol/L (98-107); Creatinine, Serum 0.83 mg/dL (0.70-1.30); EST Glomerular Filtration Rate 96 mL/min (>60); Est Glom Filt Rate - Afr Amer 116 mL/min (>60); Estimated Creatinine Clearance 73.25 ml/min; Globulin 3.6 g/dL (2.2-4.2); Glucose 176 mg/dL (74-106); Potassium 4.2 mmol/L (3.5-5.1); Protein, Total 6.3 g/dL (6.4-8.2); Sodium Level 138 mmol/L (136-145)
[2020-06-13 07:42] LABS: Bedside Glucose 180 mg/dL (70-110)
[2020-06-13] MEDS: Carbidopa/Levodopa 25/250 Tablet PO ×4 (08:26→21:41)
[2020-06-13] MEDS: Sertraline 100 MG Tablet 150 MG PO (08:26)
[2020-06-13] MEDS: dilTIAZem CD 180 MG Capsule PO (08:27)
[2020-06-13] MEDS: Pantoprazole Sodium 40 MG Tablet PO ×2 (08:27→21:42)
[2020-06-13] MEDS: Gabapentin 600 MG Tablet PO ×2 (08:27→21:42)
[2020-06-13] MEDS: Lisinopril 5 MG Tablet PO (08:27)
[2020-06-13] MEDS: Aspirin 325 MG Tablet PO (08:27)
[2020-06-13] MEDS: buPROPion (SR) 150 MG Tablet.SA PO (08:27)
[2020-06-13] MEDS: Isosorbide Mononitrate 30 MG Tablet PO (08:27)
[2020-06-13] MEDS: Furosemide 40 MG Tablet PO ×2 (08:27→18:40)
[2020-06-13] MEDS: Enoxaparin 40 MG/0.4 ML Syringe SC (08:27)
[2020-06-13] MEDS: Ferrous Sulfate 325 MG Tablet PO ×3 (08:27→16:32)
--- NOTE | 2020-06-13 08:56 | TREXTCAR_ITS ---
- Diet 06/11/20 05:52 Diet: Consistent Carb - Calorie Controlled How many daily calories?: 1800 calorie - Routine Orders/Code Status O2 Frequency: Continuous Keep PO Greater than or Equal to (%): 94 - use CPAP 13, Fi02 30% QHS Routine Lab Work: CBC Code Status: DNRCC-A - Wound(s) BILAT ARMS Wound Type: Skin Tear BILAT LOWER EXTREMITIES Wound Type: Skin Tear LEFT FOOT Wound Type: SCAB RF Wound Type: Skin Tear - Therapies Weight Bearing: Weight bearing as tolerated Physical Therapy: Eval and Treat Occupational Therapy: Eval and Treat - Allergies/Procedures Done in Hospital Allergies/Adverse Reactions: Allergies Iodine and Iodide Containing Produc Allergy (Verified 04/27/20 13:53) Shortness of breath simvastatin Adverse Reaction (Verified 04/27/20 13:53) Other Procedures: None - Type of Care/Length of Stay Estimated LOS: Convalescent Care Less Than 30 days Type of Care Needed: Skilled Rehab Potential: Good Prognosis: Good - Additional Orders/Day of Discharge Day of Discharge: 06/13/20 - Dietary and Speech Recommendations Dietitian Recommendations/Changes: Will continue current diet order of 1800 robert/consistent carb. Will continue ONS at meals and medpass for increased nutrition if consumed. - Follow Up Care Primary Care Physician: Etienne Mast MD [Primary Care Provider] - Please follow up with your Primary Care Physician in: within 1-2 weeks When: Administrative Support Technician [facility] within 1-2 weeks
--- NOTE | 2020-06-13 09:04 | PCM.PN.HOSP ---
Patient Problems: Active and Suspected Problems (Last Reviewed 03/06/20 @ 04:[address] Vick Gay MD) Encephalopathy acute (Acute) Seizure (Acute) Hypoglycemia (Acute) Hypoxia (Acute) Reason for Visit: Follow-up on acute metabolic encephalopathy/recurrent hypoglycemia Subjective: Patient was seen and examined. He feels much improved. He is alert oriented x3. He denied any new complaints. Discharge planning to long term facility ongoing. Objective: Physical exam: General: Alert oriented x2/3, not pale, not jaundiced, well hydrated HEENT: PERRLA, EOMI, Normocephalic Oral: Dry Mucosa Neck: Supple, No JVD, Negative Carotid Bruits Lungs: Clear to auscultation, Normal air movement, No rhonchi, No wheeze Cardiovascular: Regular rate, Regular Rhythm, Normal S1, Normal S2, No murmurs Abdomen: Bowel Sounds Present, Soft, Non Tender, Non-Distended, No Hepato-splenomegaly Extremities: No clubbing, No cyanosis, No edema, Capillary Refill Less than 3 Seconds Skin: No rashes, No breakdown Musculoskeletal: No Tenderness to Palpation of Joints or Extremities Lymphatic: No Cervical, Supraclavicular, or Inguinal Adenopathy Neurological: Grossly intact Vitals/I&O's: Vital Signs Temp Pulse Resp BP Pulse Ox 98.3 F 77 18 129/58 H 94 06/13/20 08:21 06/13/20 08:21 06/13/20 08:21 06/13/20 08:21 06/13/20 08:21 Oxygen Flow Rate (L/min) 4 Oxygen Delivery Method Room Air Weight: 70.1 kg Body Mass Index (BMI) 24.0 Finger Stick Blood Glucose 151 Intake and Output for Last 24 Hours 06/11/20 06/12/20 06/13/20 23:59 23:59 23:59 Intake Total 2262.92 / 2262.92 1260 / 1260 240 / 240 Output Total 1025 / 1325 2500 / 2500 1100 / 1100 Balance 1237.92 / 937.92 -1240 / -1240 -860 / -860 Microbiology Past 72 Hours 06/12/20 00:00 Stool Stool Occult Blood (JENNY) - Final Occult Blood Positive Laboratory Results 06/11/20 06:00: Vitamin B12 1299 H 06/12/20 05:30: Hemoglobin A1c 6.2 H 06/12/20 11:10: POC Glucose 205 H 06/12/20 16:08: POC Glucose 220 H 06/12/20 21:29: POC Glucose 207 H 06/13/20 06:34: POC Glucose 180 H 06/13/20 06:35: WBC 6.1, RBC 2.91 L, Hgb 8.0 L, Hct 26.2 L, MCV 90.0, MCH 27.5, MCHC 30.5 L, RDW Std Deviation 60.1 H, RDW Coeff of Mat 18.0 H, Plt Count 313, MPV 8.4, Immature Gran % (Auto) 0.700, Neut % (Auto) 76.4 H, Lymph % (Auto) 8.7 L, [place] % (Auto) 12.0 H, Eos % (Auto) 2.0, Baso % (Auto) 0.2, Absolute Neuts (auto) 4.7, Absolute Lymphs (auto) 0.53 L, Nucleated RBC % 0 06/13/20 06:35: Sodium 138, Potassium 4.2, Chloride 107, Carbon Dioxide 28.0, Anion Gap 3 L, BUN 20 H, Creatinine 0.83, Estim Creat Clear Calc 73.25, Est GFR (MDRD) Af Amer 116, Est GFR (MDRD) Non-Af 96, BUN/Creatinine Ratio 24.1 H, Glucose 176 H, Calcium 8.6, Total Bilirubin 0.40, AST 12 L, ALT 9 L, Alkaline Phosphatase 150 H, Total Protein 6.3 L, Albumin 2.7 L, Globulin 3.6, Albumin/Globulin Ratio 0.8 L Current Medications Acetaminophen (Tylenol) 650 mg PO Q6H PRN PRN PRN Reason: Pain Score 1-10/Temp > 100.7 F Al Hydroxide/Mg Hydroxide (Mylanta Ii) 30 ml PO Q6H PRN PRN PRN Reason: Gastric Burning Albuterol Sulfate (Ventolin Aerosols) 2.5 mg INHALATION Q2H PRN PRN PRN Reason: Dyspnea, wheezing Albuterol/Ipratropium (Duoneb) 3 ml INHALATION Q6HWA.RT [facility] Last Admin: 06/13/20 07:17 Dose: 3 ml Documented by: [facility]in) [facility] Admin: 06/13/20 08:27 Dose: 325 mg Documented by: Atorvastatin Calcium (Lipitor) 20 mg PO QHS [facility] Last Admin: 06/12/20 21:31 Dose: 20 mg Documented by: Bupropion HCl (Wellbutrin Sr (150mg Tablets)) 150 mg PO DAILY [facility] Last Admin: 06/13/20 08:27 Dose: 150 mg Documented by: Carbidopa/Levodopa (Sinemet) 2 tablet PO 4X/DAY [facility] Last Admin: 06/13/20 08:26 Dose: 2 tablet Documented by: Diltiazem HCl (Cardizem Cd) 180 mg PO DAILY [facility] Last Admin: 06/13/20 08:27 Dose: 180 mg Documented by: Enoxaparin Sodium (Lovenox) 40 mg SC DAILY [facility] Last Admin: 06/13/20 08:27 Dose: 40 mg Documented by: Entacapone (Comtan) 200 mg PO 4X/DAY [facility] Last Admin: 06/13/20 08:27 Dose: 200 mg Documented by: Ferrous Sulfate (Ferrous Sulfate) 325 mg PO TIDCM [facility] Last Admin: 06/13/20 08:27 Dose: 325 mg Documented by: Furosemide (Lasix) 40 mg PO BID@1000,1800 [facility] Last Admin: 06/13/20 08:27 Dose: 40 mg Documented by: Gabapentin (Neurontin) 600 mg PO BID [facility] Last Admin: 06/13/20 08:27 Dose: 600 mg Documented by: Guaifenesin (Robitussin) 10 ml PO Q4H PRN PRN PRN Reason: COUGH Sodium Chloride () 250 mls @ 15 mls/hr IV .[id number] PRN PRN Reason: Saline Flush Sodium Chloride () 250 mls @ 15 mls/hr IV .[id number] PRN PRN Reason: Additional IVPB Infusion Insulin Human Lispro (Humalog Kwikpen (Bkc)) 0 unit SC [facility]; Protocol Last Admin: 06/13/20 06:39 Dose: 1 u Documented by: Isosorbide Mononitrate (Imdur) 30 mg PO DAILY [facility] Last Admin: 06/13/20 08:27 Dose: 30 mg Documented by: Levothyroxine Sodium (Synthroid) 175 mcg PO DAILY@0600 [facility] Last Admin: 06/13/20 06:27 Dose: 175 mcg Documented by: Lisinopril (Zestril) 5 mg PO DAILY [facility] Last Admin: 06/13/20 08:27 Dose: 5 mg Documented by: Magnesium Hydroxide (Milk Of Magnesia) 30 ml PO DAILY PRN PRN PRN Reason: Constipation Metformin HCl (Metformin Hcl 500 Mg Tablet) 500 mg PO TIDCM [facility] Nitroglycerin (Nitrostat) 0.4 mg SUBLINGUAL Q5M PRN PRN Reason: CARDIAC/CHEST PAIN Nutritional Formula (Lactose Free) (Glucerna Shake) 120 ml PO TIDCM [facility] Last Admin: 06/13/20 08:27 Dose: Not Given Documented by: Ondansetron HCl (Zofran) 4 mg IV Q8H PRN PRN PRN Reason: NAUSEA/VOMITING Pantoprazole Sodium (Protonix) 40 mg PO BID [facility] Last Admin: 06/13/20 08:27 Dose: 40 mg Documented by: Prochlorperazine Edisylate (Compazine Iv) 5 mg IV Q4H PRN PRN PRN Reason: Breakthrough Nausea/Vomiting Psyllium Hydrophilic Mucilloid (Metamucil) 1 packet PO DAILY PRN PRN PRN Reason: Constipation Senna/Docusate Sodium (Senokot-S, Katelynn-Colace) 2 tablet PO BID PRN PRN PRN Reason: Constipation Sertraline HCl (Zoloft) 150 mg PO DAILY [facility] Last Admin: 06/13/20 08:26 Dose: 150 mg Documented by: Sodium Chloride () 10 - 40 ml IV UD PRN PRN Reason: SALINE FLUSH Last Admin: 06/12/20 10:41 Dose: 10 ml Documented by: Tamsulosin HCl (Flomax) 0.4 mg PO DAILY@1730 [facility] Last Admin: 06/12/20 16:18 Dose: 0.4 mg Documented by: Throat Lozenges (Cepacol Sore Throat Lozenge) 1 lozenge MUCOUS MEM Q2H PRN PRN PRN Reason: SORE THROAT STROKE Vital Signs/Narrative: Vital Signs Temp Pulse Resp BP Pulse Ox 06/13/20 08:21 98.3 F 77 18 129/58 H 94 06/13/20 07:00 70 Medical Necessity - Tobacco Use Smoking Status: Unknown if ever smoked Tobacco Use: Non-smoker Assessment/Plan All Active Problems (Last Reviewed 03/06/20 @ 04:[address] Vick Gay MD) Encephalopathy acute (Acute) Seizure (Acute) Hypoglycemia (Acute) Hypoxia (Acute) Acute on chronic anemia (Acute) Rib fracture (Acute) Acute kidney injury (Acute) 1. Acute metabolic encephalopathy, multifactorial secondary to recurrent hypoglycemia, hypoxia, resolved Seizure disorder ruled out with normal EEG. 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 Unable to do MRI on account of ICD Blood sugars have improved. Off D10 IV fluids. 2. Recurrent hypoglycemia, HbA1c 6.2 Hold resume metformin and hold off on restarting home Lantus 3. Acute hypoxic respiratory insufficiency secondary to bilateral pleural effusion, resolved Encourage use of incentive spirometer 4. Bilateral pleural effusions likely secondary to recent IV fluids in recent admission Last 2D echo in January 2020 showed EF 60% Continue on oral Lasix 5. Chronic anemia, appears to be at the baseline, hemoglobin is 8.3 Recent history of severe anemia, FOBT is positive, patient had refused EGD/colonoscopy in the recent past Continue on PPI, Will discuss again with the daughters on possible EGD/colonoscopy, possibly in the outpatient 6. Recent ninth, 10th and 11th rib fractures from mechanical fall, continue to encourage incentive spirometer 7. CAD status post CABG/history of CVA/paroxysmal atrial fibrillation/hypothyroidism, all remain stable Continue on atorvastatin, Cardizem, Imdur, lisinopril, Synthroid 8. GERD on PPI 9. Parkinson's disease, continue on Sinemet and entacapone 10. Anxiety/depression, continue on Wellbutrin, Zoloft and gabapentin 11. DVT prophylaxis with Lovenox subcu 12. Disposition: Social work/case management follow-up for family's preference for discharge possibly to long term facility Will transfer out of ICU to PCU Inpatient E&M: [id number] Subs Hosp L2
--- NOTE | 2020-06-13 09:14 | PCM.PN.INT ---
Subjective: Patient did well overnight. No seizure activity has been reported. Hypoglycemia has also been controlled per documentation. Patient states he feels that he is at his baseline and no interventions have been required. Patient states he misses qualification for [facility] [place] 4 miles. General: Alert, Oriented x3, Cooperative, No apparent distress, Well developed, Well nourished, - - Speaking in full sentences. HEENT: Atraumatic, PERRLA, EOMI, Normocephalic, - - No scleral icterus or injection noted. Oral: Moist Mucosa, No Gingival or Mucosal Lesions/ Ulcerations Neck: Supple, No JVD, No Nodes, Trachea Midline Lungs: Clear to auscultation, Normal air movement, No rhonchi, No wheeze, No rales Cardiovascular: Regular rate, Regular Rhythm, Normal S1, Normal S2, No murmurs, No rub noted, No Gallop Abdomen: Bowel Sounds Present, Soft, Non Tender, Non-Distended Extremities: No clubbing, No cyanosis, Edema - Trace lower extremity Skin: - - No change from previous Musculoskeletal: No Tenderness to Palpation of Joints or Extremities Lymphatic: No Cervical, Supraclavicular, or Inguinal Adenopathy Neurological: Cranial nerves II-XII grossly intact, Neuro grossly intact, Motor Exam 5/5 strength throughout Psych/Mental Status: Alert and oriented to time, place, person, mood and affect Vital Signs Temp Pulse Resp BP Pulse Ox 36.8 C 77 18 129/58 H 94 06/13/20 08:21 06/13/20 08:21 06/13/20 08:21 06/13/20 08:21 06/13/20 08:21 Oxygen Flow Rate (L/min) 4 Oxygen Delivery Method Room Air Weight: 70.1 kg Body Mass Index (BMI) 24.0 Finger Stick Blood Glucose 151 Intake and Output for Last 24 Hours 06/11/20 06/12/20 06/13/20 23:59 23:59 23:59 Intake Total 2262.92 / 2262.92 1260 / 1260 240 / 240 Output Total 1025 / 1325 2500 / 2500 1100 / 1100 Balance 1237.92 / 937.92 -1240 / -1240 -860 / -860 Labs (Last 48 Hours) 10/11/20 10/11/20 10/11/20 06:00 07:40 09:00 WBC RBC Hgb Hct MCV MCH MCHC RDW Std Deviation RDW Coeff of Mat Plt Count MPV Immature Gran % (Auto) Neut % (Auto) Lymph % (Auto) [place] % (Auto) Eos % (Auto) Baso % (Auto) Absolute Neuts (auto) Absolute Lymphs (auto) Nucleated RBC % Differential Comment Sodium Potassium Chloride Carbon Dioxide Anion Gap BUN Creatinine Estim Creat Clear Calc Est GFR (MDRD) Af Amer Est GFR (MDRD) Non-Af BUN/Creatinine Ratio Glucose Hemoglobin A1c Calcium Total Bilirubin AST ALT Alkaline Phosphatase Troponin I < 0.015 Total Protein Albumin Globulin Albumin/Globulin Ratio Triglycerides Cholesterol LDL Cholesterol VLDL Cholesterol HDL Cholesterol Vitamin B12 1299 H POC Glucose 101 06/11/20 06/11/20 06/11/20 10:19 13:48 16:22 WBC RBC Hgb Hct MCV MCH MCHC RDW Std Deviation RDW Coeff of Mat Plt Count MPV Immature Gran % (Auto) Neut % (Auto) Lymph % (Auto) [place] % (Auto) Eos % (Auto) Baso % (Auto) Absolute Neuts (auto) Absolute Lymphs (auto) Nucleated RBC % Differential Comment Sodium Potassium Chloride Carbon Dioxide Anion Gap BUN Creatinine Estim Creat Clear Calc Est GFR (MDRD) Af Amer Est GFR (MDRD) Non-Af BUN/Creatinine Ratio Glucose Hemoglobin A1c Calcium Total Bilirubin AST ALT Alkaline Phosphatase Troponin I Total Protein Albumin Globulin Albumin/Globulin Ratio Triglycerides Cholesterol LDL Cholesterol VLDL Cholesterol HDL Cholesterol Vitamin B12 POC Glucose 119 H 232 H 232 H 06/11/20 06/12/20 06/12/20 21:16 05:30 05:30 WBC 5.4 RBC 2.97 L Hgb 8.3 L Hct 26.6 L MCV 89.6 MCH 27.9 MCHC 31.2 L RDW Std Deviation 58.4 H RDW Coeff of Mat 17.7 H Plt Count 293 MPV 8.5 Immature Gran % (Auto) 0.900 Neut % (Auto) 83.5 H Lymph % (Auto) 5.4 L [place] % (Auto) 10.0 Eos % (Auto) 0.0 Baso % (Auto) 0.2 Absolute Neuts (auto) 4.5 Absolute Lymphs (auto) 0.29 L Nucleated RBC % 0 Differential Comment SCANNED Sodium 137 Potassium 4.5 Chloride 107 Carbon Dioxide 27.0 Anion Gap 3 L BUN 20 H Creatinine 0.87 Estim Creat Clear Calc 69.89 Est GFR (MDRD) Af Amer 110 Est GFR (MDRD) Non-Af 91 BUN/Creatinine Ratio 23.0 H Glucose 176 H Hemoglobin A1c Calcium 8.7 Total Bilirubin AST ALT Alkaline Phosphatase Troponin I Total Protein Albumin Globulin Albumin/Globulin Ratio Triglycerides Cholesterol LDL Cholesterol VLDL Cholesterol HDL Cholesterol Vitamin B12 POC Glucose 278 H 06/12/20 06/12/20 06/12/20 05:30 05:30 06:34 WBC RBC Hgb Hct MCV MCH MCHC RDW Std Deviation RDW Coeff of Mat Plt Count MPV Immature Gran % (Auto) Neut % (Auto) Lymph % (Auto) [place] % (Auto) Eos % (Auto) Baso % (Auto) Absolute Neuts (auto) Absolute Lymphs (auto) Nucleated RBC % Differential Comment Sodium Potassium Chloride Carbon Dioxide Anion Gap BUN Creatinine Estim Creat Clear Calc Est GFR (MDRD) Af Amer Est GFR (MDRD) Non-Af BUN/Creatinine Ratio Glucose Hemoglobin A1c 6.2 H Calcium Total Bilirubin AST ALT Alkaline Phosphatase Troponin I Total Protein Albumin Globulin Albumin/Globulin Ratio Triglycerides 82 Cholesterol 123 LDL Cholesterol 55 VLDL Cholesterol 16 HDL Cholesterol 52 Vitamin B12 POC Glucose 164 H 06/12/20 06/12/20 06/12/20 11:10 16:08 21:29 WBC RBC Hgb Hct MCV MCH MCHC RDW Std Deviation RDW Coeff of Mat Plt Count MPV Immature Gran % (Auto) Neut % (Auto) Lymph % (Auto) [place] % (Auto) Eos % (Auto) Baso % (Auto) Absolute Neuts (auto) Absolute Lymphs (auto) Nucleated RBC % Differential Comment Sodium Potassium Chloride Carbon Dioxide Anion Gap BUN Creatinine Estim Creat Clear Calc Est GFR (MDRD) Af Amer Est GFR (MDRD) Non-Af BUN/Creatinine Ratio Glucose Hemoglobin A1c Calcium Total Bilirubin AST ALT Alkaline Phosphatase Troponin I Total Protein Albumin Globulin Albumin/Globulin Ratio Triglycerides Cholesterol LDL Cholesterol VLDL Cholesterol HDL Cholesterol Vitamin B12 POC Glucose 205 H 220 H 207 H 06/13/20 06/13/20 06/13/20 06:34 06:35 06:35 WBC 6.1 RBC 2.91 L Hgb 8.0 L Hct 26.2 L MCV 90.0 MCH 27.5 MCHC 30.5 L RDW Std Deviation 60.1 H RDW Coeff of Mat 18.0 H Plt Count 313 MPV 8.4 Immature Gran % (Auto) 0.700 Neut % (Auto) 76.4 H Lymph % (Auto) 8.7 L [place] % (Auto) 12.0 H Eos % (Auto) 2.0 Baso % (Auto) 0.2 Absolute Neuts (auto) 4.7 Absolute Lymphs (auto) 0.53 L Nucleated RBC % 0 Differential Comment Sodium 138 Potassium 4.2 Chloride 107 Carbon Dioxide 28.0 Anion Gap 3 L BUN 20 H Creatinine 0.83 Estim Creat Clear Calc 73.25 Est GFR (MDRD) Af Amer 116 Est GFR (MDRD) Non-Af 96 BUN/Creatinine Ratio 24.1 H Glucose 176 H Hemoglobin A1c Calcium 8.6 Total Bilirubin 0.40 AST 12 L ALT 9 L Alkaline Phosphatase 150 H Troponin I Total Protein 6.3 L Albumin 2.7 L Globulin 3.6 Albumin/Globulin Ratio 0.8 L Triglycerides Cholesterol LDL Cholesterol VLDL Cholesterol HDL Cholesterol Vitamin B12 POC Glucose 180 H Microbiology 06/12/20 00:00 Stool Stool Occult Blood (JENNY) - Final Occult Blood Positive Medical Necessity - Tobacco Use Smoking Status: Unknown if ever smoked Tobacco Use: Non-smoker Assessment/Plan All Active Problems (Last Reviewed 03/06/20 @ 04:[address] Vick Gay MD) Encephalopathy acute (Acute) Seizure (Acute) Hypoglycemia (Acute) Hypoxia (Acute) Acute on chronic anemia (Acute) Rib fracture (Acute) Acute kidney injury (Acute) RECOMMENDATIONS: 1. Patient would benefit from closer evaluation by endocrinology in my opinion 2. No antiepileptic therapy needed in my opinion 3. May benefit from establishment with paint spraying machine [facility] to allow for closer follow-up 4. Hemodynamically stable on room air. Will sign off from a critical care perspective. IMPRESSIONS: 1. Encephalopathy Resolved. Clinical concern for new onset seizure activity with subsequent postictal state. No seizure activity was noted on EEG. Clinical suspicion for a hypoglycemic seizure with postictal state leading to presentation. Patient appears to be doing well at this time. 2. Diabetes mellitus Patient appears to be very brittle with highly variable blood sugars. Patient is very clear that most of his seizure activity has happened with lower blood sugars. Patient does follow at the [facility], but may benefit from closer evaluation and titration of diabetic medications. 3. Anemia The patient does have baseline, chronic anemia and refused to undergo endoscopic evaluation during his prior hospitalization. Plan to continue twice daily PPI therapy. Monitor blood counts daily with plans to transfuse if hemoglobin drops below 7 g/dL. Patient would benefit from outpatient evaluation. 4. History of CVA/coronary artery disease status post CABG/hypertension/hyperlipidemia/Parkinson's disease/hypothyroidism/paroxysmal atrial fibrillation Complicates care, management, recovery and prognosis. Okay to continue with baseline medications from my perspective. Inpatient E&M: 13522 Subs Hosp L2
[2020-06-13 11:35] LABS: Bedside Glucose 180 mg/dL (70-110)
--- NOTE | 2020-06-13 11:49 | CASEMGMT ---
Addendum entered by Augusta Kam 06/13/20 11:53: JUNE also called patient's daughter Christel per her request. JUNE let her know it is unlikely patient will go today as we are waiting on insurance authorization. She said she can transport patient back when ready. She thanked JUNE for the update. JUNE went to tell patient, but he was sleeping and JUNE did not want to wake him up. Augusta AYERS Original Note: JUNE faxed PT/OT evaluations to Violette at [facility] and asked that she start the pre-cert. Augusta DESIR [employer]
[2020-06-13] MEDS: metFORMIN HCl 500 MG Tablet PO ×2 (12:52→16:32)
[2020-06-13] MEDS: Tamsulosin HCl 0.4 MG Capsule PO (16:32)
[2020-06-13 17:06] LABS: Bedside Glucose 200 mg/dL (70-110)
[2020-06-13] MEDS: Atorvastatin Calcium 20 MG Tablet PO (21:42)
[2020-06-13 21:50] LABS: Bedside Glucose 192 mg/dL (70-110)
[2020-06-14] VITALS (11 sets, daily range): BP systolic 100–130; BP diastolic 46–54; PULSE 70–85; RESP 15–20; TEMP 36.3–36.9; O2SAT 93–96
[2020-06-14] MEDS: Insulin Lispro 100 UNIT/ML INSULN.PEN SC ×3 (06:34→20:56)
[2020-06-14] MEDS: Levothyroxine 175 MCG Tablet PO (06:34)
[2020-06-14 06:41] LABS: Bedside Glucose 171 mg/dL (70-110)
[2020-06-14] MEDS: Ipratropium/Albuterol Sulfate 3 ML AMPUL.NEB INHALATION ×3 (07:26→19:20)
[2020-06-14] MEDS: Aspirin 325 MG Tablet PO (08:21)
[2020-06-14] MEDS: metFORMIN HCl 500 MG Tablet PO ×3 (08:21→16:43)
[2020-06-14] MEDS: Ferrous Sulfate 325 MG Tablet PO ×3 (08:21→16:42)
[2020-06-14] MEDS: Pantoprazole Sodium 40 MG Tablet PO ×2 (09:07→20:57)
[2020-06-14] MEDS: Isosorbide Mononitrate 30 MG Tablet PO (09:07)
[2020-06-14] MEDS: dilTIAZem CD 180 MG Capsule PO (09:07)
[2020-06-14] MEDS: Furosemide 40 MG Tablet PO ×2 (09:08→16:45)
[2020-06-14] MEDS: Enoxaparin 40 MG/0.4 ML Syringe SC (09:08)
[2020-06-14] MEDS: Gabapentin 600 MG Tablet PO ×2 (09:08→20:57)
[2020-06-14] MEDS: Carbidopa/Levodopa 25/250 Tablet PO ×4 (09:08→20:57)
[2020-06-14] MEDS: Lisinopril 5 MG Tablet PO (09:09)
[2020-06-14] MEDS: buPROPion (SR) 150 MG Tablet.SA PO (09:09)
[2020-06-14] MEDS: Sertraline 100 MG Tablet 150 MG PO (09:09)
[2020-06-14 11:10] LABS: Bedside Glucose 168 mg/dL (70-110)
[2020-06-14 16:15] LABS: Bedside Glucose 109 mg/dL (70-110)
[2020-06-14] MEDS: Acetaminophen 325 MG Tablet 650 MG PO (16:41)
[2020-06-14] MEDS: Tamsulosin HCl 0.4 MG Capsule PO (16:43)
[2020-06-14] MEDS: Atorvastatin Calcium 20 MG Tablet PO (20:57)
[2020-06-14 21:11] LABS: Bedside Glucose 155 mg/dL (70-110)
[2020-06-15] VITALS (10 sets, daily range): BP systolic 109–138; BP diastolic 49–70; PULSE 71–92; RESP 16–20; TEMP 36.4–37.2; O2SAT 94–100
--- NOTE | 2020-06-15 04:05 | PCM.PN.HOSP ---
Patient Problems: Active and Suspected Problems (Last Reviewed 03/06/20 @ 04:[address] Vick Gay MD) Encephalopathy acute (Acute) Seizure (Acute) Hypoglycemia (Acute) Hypoxia (Acute) Reason for Visit: Follow-up on acute metabolic encephalopathy/recurrent hypoglycemia - Late entry note. Patient was seen and examined on 06/14/20 9am Subjective: Patient was seen and examined. No acute events. Discharge planning to care home facility ongoing. Objective: Physical exam: General: Alert oriented x2/3, not pale, not jaundiced, well hydrated HEENT: PERRLA, EOMI, Normocephalic Oral: Dry Mucosa Neck: Supple, No JVD, Negative Carotid Bruits Lungs: Clear to auscultation, Normal air movement, No rhonchi, No wheeze Cardiovascular: Regular rate, Regular Rhythm, Normal S1, Normal S2, No murmurs Abdomen: Bowel Sounds Present, Soft, Non Tender, Non-Distended, No Hepato-splenomegaly Extremities: No clubbing, No cyanosis, No edema, Capillary Refill Less than 3 Seconds Skin: No rashes, No breakdown Musculoskeletal: No Tenderness to Palpation of Joints or Extremities Lymphatic: No Cervical, Supraclavicular, or Inguinal Adenopathy Neurological: Grossly intact Vitals/I&O's: Vital Signs Temp Pulse Resp BP Pulse Ox 98.4 F 81 18 109/54 L 100 06/15/20 02:35 06/15/20 03:00 06/15/20 02:35 06/15/20 02:35 06/15/20 02:35 Oxygen Flow Rate (L/min) 4 Oxygen Delivery Method CPAP Weight: 66.6 kg Body Mass Index (BMI) 24.0 Finger Stick Blood Glucose 151 Intake and Output for Last 24 Hours 06/13/20 06/14/20 06/15/20 23:59 23:59 23:59 Intake Total 1195 / 1195 1040 / 1040 Output Total 2890 / 2890 2125 / 2125 Balance -1695 / -1695 -1085 / -1085 Microbiology Past 72 Hours 06/12/20 00:00 Stool Stool Occult Blood (JENNY) - Final Occult Blood Positive Laboratory Results 06/14/20 06:33: POC Glucose 171 H 06/14/20 11:01: POC Glucose 168 H 06/14/20 16:02: POC Glucose 109 06/14/20 20:53: POC Glucose 155 H Current Medications Acetaminophen (Tylenol) 650 mg PO Q6H PRN PRN PRN Reason: Pain Score 1-10/Temp > 100.7 F Last Admin: 06/14/20 16:41 Dose: 650 mg Documented by: Al Hydroxide/Mg Hydroxide (Mylanta Ii) 30 ml PO Q6H PRN PRN PRN Reason: Gastric Burning Albuterol Sulfate (Ventolin Aerosols) 2.5 mg INHALATION Q2H PRN PRN PRN Reason: Dyspnea, wheezing Albuterol/Ipratropium (Duoneb) 3 ml INHALATION Q6HWA.RT [facility] Last Admin: 06/14/20 19:20 Dose: 3 ml Documented by: [facility]ir[facility] ([facility]in) [facility] Last Admin: 06/14/20 08:21 Dose: 325 mg Documented by: Atorvastatin Calcium (Lipitor) 20 mg PO QHS [facility] Last Admin: 06/14/20 20:57 Dose: 20 mg Documented by: Bupropion HCl (Wellbutrin Sr (150mg Tablets)) 150 mg PO DAILY [facility] Last Admin: 06/14/20 09:09 Dose: 150 mg Documented by: Carbidopa/Levodopa (Sinemet) 2 tablet PO 4X/DAY [facility] Last Admin: 06/14/20 20:57 Dose: 2 tablet Documented by: Diltiazem HCl (Cardizem Cd) 180 mg PO DAILY [facility] Last Admin: 06/14/20 09:07 Dose: 180 mg Documented by: Enoxaparin Sodium (Lovenox) 40 mg SC DAILY [facility] Last Admin: 06/14/20 09:08 Dose: 40 mg Documented by: Entacapone (Comtan) 200 mg PO 4X/DAY [facility] Last Admin: 06/14/20 20:56 Dose: 200 mg Documented by: Ferrous Sulfate (Ferrous Sulfate) 325 mg PO TIDCM [facility] Last Admin: 06/14/20 16:42 Dose: 325 mg Documented by: Furosemide (Lasix) 40 mg PO BID@1000,1800 [facility] Last Admin: 06/14/20 16:45 Dose: 40 mg Documented by: Gabapentin (Neurontin) 600 mg PO BID [facility] Last Admin: 06/14/20 20:57 Dose: 600 mg Documented by: Guaifenesin (Robitussin) 10 ml PO Q4H PRN PRN PRN Reason: COUGH Sodium Chloride () 250 mls @ 15 mls/hr IV .[id number] PRN PRN Reason: Saline Flush Sodium Chloride () 250 mls @ 15 mls/hr IV .[id number] PRN PRN Reason: Additional IVPB Infusion Insulin Human Lispro (Humalog Kwikpen (Bkc)) 0 unit SC [facility]; Protocol Last Admin: 06/14/20 20:56 Dose: 1 u Documented by: Isosorbide Mononitrate (Imdur) 30 mg PO DAILY [facility] Last Admin: 06/14/20 09:07 Dose: 30 mg Documented by: Levothyroxine Sodium (Synthroid) 175 mcg PO DAILY@0600 [facility] Last Admin: 06/14/20 06:34 Dose: 175 mcg Documented by: Lisinopril (Zestril) 5 mg PO DAILY [facility] Last Admin: 06/14/20 09:09 Dose: 5 mg Documented by: Magnesium Hydroxide (Milk Of Magnesia) 30 ml PO DAILY PRN PRN PRN Reason: Constipation Metformin HCl (Metformin Hcl 500 Mg Tablet) 500 mg PO TIDCM [facility] Last Admin: 06/14/20 16:43 Dose: 500 mg Documented by: Nitroglycerin (Nitrostat) 0.4 mg SUBLINGUAL Q5M PRN PRN Reason: CARDIAC/CHEST PAIN Nutritional Formula (Lactose Free) (Glucerna Shake) 120 ml PO TIDCM [facility] Last Admin: 06/14/20 16:42 Dose: Not Given Documented by: Ondansetron HCl (Zofran) 4 mg IV Q8H PRN PRN PRN Reason: NAUSEA/VOMITING Pantoprazole Sodium (Protonix) 40 mg PO BID [facility] Last Admin: 06/14/20 20:57 Dose: 40 mg Documented by: Prochlorperazine Edisylate (Compazine Iv) 5 mg IV Q4H PRN PRN PRN Reason: Breakthrough Nausea/Vomiting Psyllium Hydrophilic Mucilloid (Metamucil) 1 packet PO DAILY PRN PRN PRN Reason: Constipation Senna/Docusate Sodium (Senokot-S, Katelynn-Colace) 2 tablet PO BID PRN PRN PRN Reason: Constipation Sertraline HCl (Zoloft) 150 mg PO DAILY [facility] Last Admin: 06/14/20 09:09 Dose: 150 mg Documented by: Sodium Chloride () 10 - 40 ml IV UD PRN PRN Reason: SALINE FLUSH Last Admin: 06/12/20 10:41 Dose: 10 ml Documented by: Tamsulosin HCl (Flomax) 0.4 mg PO DAILY@1730 [facility] Last Admin: 06/14/20 16:43 Dose: 0.4 mg Documented by: Throat Lozenges (Cepacol Sore Throat Lozenge) 1 lozenge MUCOUS MEM Q2H PRN PRN PRN Reason: SORE THROAT STROKE Vital Signs/Narrative: Vital Signs Temp Pulse Resp BP Pulse Ox 06/15/20 03:00 81 06/15/20 02:35 98.4 F 92 18 109/54 L 100 06/15/20 01:46 73 20 H 94 Medical Necessity - Tobacco Use Smoking Status: Unknown if ever smoked Tobacco Use: Non-smoker Assessment/Plan All Active Problems (Last Reviewed 03/06/20 @ 04:[address] Vick Gay MD) Encephalopathy acute (Acute) Seizure (Acute) Hypoglycemia (Acute) Hypoxia (Acute) Acute on chronic anemia (Acute) Rib fracture (Acute) Acute kidney injury (Acute) 1. Acute metabolic encephalopathy, multifactorial secondary to recurrent hypoglycemia, hypoxia, resolved Seizure disorder ruled out with normal EEG. 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 Unable to do MRI on account of ICD Blood sugars have improved. Off D10 IV fluids. 2. Recurrent hypoglycemia, HbA1c 6.2 Continue on metformin and hold off on restarting home Lantus 3. Acute hypoxic respiratory insufficiency secondary to bilateral pleural effusion, resolved Encourage use of incentive spirometer 4. Bilateral pleural effusions likely secondary to recent IV fluids in recent admission Last 2D echo in January 2020 showed EF 60% Continue on oral Lasix 5. Chronic anemia, appears to be at the baseline, hemoglobin is 8.3 Recent history of severe anemia, FOBT is positive, patient had refused EGD/colonoscopy in the recent past Continue on PPI, possible EGD/colonoscopy in the outpatient 6. Recent ninth, 10th and 11th rib fractures from mechanical fall, continue to encourage incentive spirometer 7. CAD status post CABG/history of CVA/paroxysmal atrial fibrillation/hypothyroidism, all remain stable Continue on atorvastatin, Cardizem, Imdur, lisinopril, Synthroid 8. GERD on PPI 9. Parkinson's disease, continue on Sinemet and entacapone 10. Anxiety/depression, continue on Wellbutrin, Zoloft and gabapentin 11. DVT prophylaxis with Lovenox subcu Inpatient E&M: 98794 Subs Hosp L2
[2020-06-15] MEDS: Levothyroxine 175 MCG Tablet PO (05:36)
[2020-06-15] MEDS: Insulin Lispro 100 UNIT/ML INSULN.PEN SC ×3 (06:44→16:43)
[2020-06-15 06:51] LABS: Bedside Glucose 155 mg/dL (70-110)
[2020-06-15] MEDS: Ipratropium/Albuterol Sulfate 3 ML AMPUL.NEB INHALATION ×2 (07:23→12:45)
[2020-06-15] MEDS: Aspirin 325 MG Tablet PO (08:56)
[2020-06-15] MEDS: Ferrous Sulfate 325 MG Tablet PO ×3 (08:56→16:44)
[2020-06-15] MEDS: metFORMIN HCl 500 MG Tablet PO ×3 (08:56→16:44)
[2020-06-15] MEDS: Carbidopa/Levodopa 25/250 Tablet PO ×3 (08:56→17:36)
[2020-06-15] MEDS: Sertraline 100 MG Tablet 150 MG PO (08:57)
[2020-06-15] MEDS: dilTIAZem CD 180 MG Capsule PO (08:58)
[2020-06-15] MEDS: Isosorbide Mononitrate 30 MG Tablet PO (08:58)
[2020-06-15] MEDS: buPROPion (SR) 150 MG Tablet.SA PO (08:58)
[2020-06-15] MEDS: Furosemide 40 MG Tablet PO ×2 (08:58→17:36)
[2020-06-15] MEDS: Pantoprazole Sodium 40 MG Tablet PO (08:58)
[2020-06-15] MEDS: Lisinopril 5 MG Tablet PO (08:59)
[2020-06-15] MEDS: Enoxaparin 40 MG/0.4 ML Syringe SC (08:59)
[2020-06-15] MEDS: Gabapentin 600 MG Tablet PO (09:01)
[2020-06-15 11:30] LABS: Bedside Glucose 165 mg/dL (70-110)
--- NOTE | 2020-06-15 12:52 | CASEMGMT ---
SW received a call from [facility] and insurance is requesting updated therapy notes. SW faxed her updated therapy notes. SW also called patient's daughter and updated her as well as updated patient. Augusta DESIR MSW
--- NOTE | 2020-06-15 16:23 | CASEMGMT ---
JUNE received a call from Violette at [facility] and patient was approved. JUNE faxed orders to [facility]. JUNE notified his daughter and she will pick him up around 5p. JUNE notified patient, RN, social secretary, and Violette at [facility]. Plan: d/c back to [facility] under skilled level of care. His daughter transported him via private vehicle. Augusta DESIR MSW
[2020-06-15] MEDS: Tamsulosin HCl 0.4 MG Capsule PO (16:45)
[2020-06-15 16:46] LABS: Bedside Glucose 165 mg/dL (70-110)
--- NOTE | 2020-06-16 09:02 | DS.PCM_ITS ---
Discharge Date and Diagnosis - Problem List Patient Problems: Active and Suspected Problems (Last Reviewed 03/06/20 @ 04:[address] Vick Gay MD) Encephalopathy acute (Acute) Seizure (Acute) Hypoglycemia (Acute) Hypoxia (Acute) Date of Admission: 06/11/20 Date of Discharge: 06/15/20 - Primary Discharge Diagnosis Acute Problems: Active Problems (Last Reviewed 03/06/20 @ 04:[address] Vick Gay MD) Acute metabolic encephalopathy, multifactorial Recurrent hypoglycemia Acute hypoxic respiratory insufficiency Bilateral pleural effusions Chronic anemia Recent ninth, 10th, 11th rib fractures from mechanical fall - Secondary Discharge Diagnosis Chronic Problems: Chronic Problems (Last Reviewed 03/06/20 @ 04:[address] Vick Gay MD) Implantable cardioverter-defibrillator (ICD) at end of battery life (Chronic) Nonrheumatic aortic (valve) stenosis (Chronic) Paroxysmal atrial fibrillation (Chronic) Essential hypertension (Chronic) Atherosclerotic heart disease of [place] coronary artery without angina pectoris (Chronic) CABG x4- MONTERO to LAD, EPIFANIO to the Distal RCA, Right Radial Artery to the OM branch of CX, and Reverse SVG from the aorta to the Distal RCA 08/17/01 Aortocoronary bypass status (Chronic ~08/17/01) CABG x4- MONTERO to LAD, EPIFANIO to the Distal RCA, Right Radial Artery to the OM branch of CX, and Reverse SVG from the aorta to the Distal RCA 08/17/01 Hyperlipidemia (Chronic) Carotid bruit (Chronic) Long-term use of high-risk medication (Chronic) Paroxysmal ventricular tachycardia (Chronic) Implantable cardioverter-defibrillator (ICD) in situ (Chronic ~10/23/11) Type 2 diabetes mellitus (Chronic) Hospital Course and Treatment Imaging Results: Clinical Impression(s) from Imaging Studies Brain CT 06/11/20 01:47 IMPRESSION: Chronic involutional changes of the brain. 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 No demonstrated acute intracranial process. Electronically Signed: Eliud Leo MD at 3:43 EDT , Service support , Chest X-Ray 06/11/20 02:29 IMPRESSION: No evidence for acute cardiopulmonary pathology. Pacemaker. Electronically Signed: Eliud Leo MD at 3:46 EDT , Service support , Chest CTA 06/11/20 03:00 IMPRESSION: Normal CTA chest examination, without a demonstrated pulmonary embolism, aortic aneurysm, or aortic dissection. Moderate right pleural effusion and small left pleural effusion with overlying atelectasis in the posterior lungs and lung bases. Interstitial prominence bilaterally probably representing CHF. Tracheomalacia and central bronchial bronchial malacia.. Pacemaker. Electronically Signed: Eliud Leo MD at 6:46 EDT , Service support , Pulmonology Tele-neurology Operations: None Procedures: None Summary of Care Provided: The patient is a 75 year old M who was recently admitted with acute chronic anemia requiring blood transfusion, acute kidney injury and acute traumatic ninth, 10th and 11th rib fracture secondary to fall. Since was found to have acute UTI during the hospital stay was discharged on oral Cipro. He was noted to be confused and was sent to the emergency department. The EMS reported that patient blood sugar was 54. Patient received glucagon. In emergency d epartment, patient blood glucose was 130. In the emergency department, CT of the scan showed no acute cranial abnormality. CT of the chest was negative for acute PE. Patient was found to be drowsy. Noted to have some seizure-like activity. Repeat blood glucose check was 57. Patient received an amp of D50. Is felt that his seizure was related to recurrent hypoglycemia. Patient was monitored in the ICU. He was started on IV Keppra. Patient subsequently got EEG and neurology consult. EEG was unremarkable. No seizure-like activity seen. It was felt that her altered mental status was felt to be multifactorial; secondary to hypoxia, recurrent hypoglycemia. His Keppra was stopped. Patient was not resumed on his insulin. His metformin was later resumed. Blood sugars were trended. His sugars appear to be stable. He was transferred out of the ICU the next day and evaluated by PT/OT. He was skilled for discharge to a nursing facility. Patient's hospital stay was prolonged because we are waiting on insurance precertification for discharge. Patient Problems: Active and Suspected Problems (Last Reviewed 03/06/20 @ 04:[address] Vick Gay MD) Encephalopathy acute (Acute) Seizure (Acute) Hypoglycemia (Acute) Hypoxia (Acute) Subjective: On the day of discharge, patient was seen and examined. Denied any new complai nts. No acute events overnight. Objective: Physical exam: General: Alert oriented x2/3, not pale, not jaundiced, well hydrated HEENT: PERRLA, EOMI, Normocephalic Oral: Dry Mucosa Neck: Supple, No JVD, Negative Carotid Bruits Lungs: Clear to auscultation, Normal air movement, No rhonchi, No wheeze Cardiovascular: Regular rate, Regular Rhythm, Normal S1, Normal S2, No murmurs Abdomen: Bowel Sounds Present, Soft, Non Tender, Non-Distended, No Hepato- splenomegaly Extremities: No clubbing, No cyanosis, No edema, Capillary Refill Less than 3 Seconds Skin: No rashes, No breakdown Musculoskeletal: No Tenderness to Palpation of Joints or Extremities Lymphatic: No Cervical, Supraclavicular, or Inguinal Adenopathy Neurological: Grossly intact, tremors from Parkinson's disease - Physical Exam Vitals/I&O's: Vital Signs Temp Pulse Resp BP Pulse Ox 98.9 F 84 18 138/70 H 98 06/15/20 18:04 06/15/20 18:04 06/15/20 18:04 06/15/20 18:04 06/15/20 18:04 Oxygen Flow Rate (L/min) 4 Oxygen Delivery Method Room Air Weight: 64.9 kg Body Mass Index (BMI) 24.0 Finger Stick Blood Glucose 151 Intake and Output for Last 24 Hours 06/14/20 06/15/20 06/16/20 23:59 23:59 23:59 Intake Total 1040 / 1040 1370 / 1370 Output Total 2125 / 2125 300 / 300 Balance -1085 / -1085 1070 / 1070 Laboratory Results 06/15/20 11:28: POC Glucose 165 H 06/15/20 16:37: POC Glucose 165 H Discharge Diet: Carb Control Diet Discharge Activity: Return to Normal Activity Home Medications: Medications to take at Discharge Atorvastatin Calcium [Lipitor] 20 mg PO QHS 09/27/14 Diltiazem HCl [Diltiazem 24Hr ER (Cd)] 180 mg PO DAILY 09/27/14 Lisinopril [Zestril] 5 mg PO DAILY 09/27/14 buPROPion tablets [Wellbutrin tablets] 150 mg PO DAILY 09/27/14 metFORMIN HCl [Glucophage] 500 mg PO TIDCM 09/27/14 aspirin 325 mg tablet 325 mg PO QDAY 01/12/18 carbidopa 25 mg-levodopa 250 mg tablet 2 tab PO 4X/DAY tab 01/12/18 gabapentin 600 mg tablet 600 mg PO BID 01/12/18 calcium citrate 315 mg-vitamin D3 250 unit tablet 1 tab PO DAILY 10/22/18 ferrous sulfate 325 mg (65 mg iron) tablet 325 mg PO TID tab 10/22/18 isosorbide mononitrate 60 mg tablet,extended release 24 hr 30 mg PO DAILY tab 10/22/18 sertraline 100 mg tablet 150 mg PO DAILY tab 10/22/18 Ascorbic Acid [Vitamin C] 500 mg PO DAILY 02/07/20 Entacapone [Comtan] 200 mg PO 4X/DAY 02/07/20 Famotidine 20 mg PO QHS 02/07/20 Omeprazole 40 mg PO BID 02/07/20 levothyroxine 137 mcg tablet 175 mcg PO DAILY tab 03/24/20 Albuterol Aerosols [Ventolin Aerosols] 2.5 mg INHALATION Q4HWA.RT 06/01/20 Cyanocobalamin [Vitamin B12] 1,000 mcg PO DAILY@0800 06/01/20 Ipratropium/Albuterol Sulfate [Duoneb] 3 ml INHALATION Q6HWA.RT 06/01/20 Tamsulosin HCl [Flomax] 0.4 mg PO DAILY@1730 #90 cap 06/03/20 Furosemide [Lasix] 40 mg PO BID@1000,1800 tab 06/15/20 Guaifenesin [Robitussin] 10 ml PO Q4H PRN PRN udc 06/15/20 Senna/Docusate Sodium [Senokot-S] 2 tab PO BID PRN PRN tab 06/15/20 Primary Care Physician: Etienne Mast MD [Primary Care Provider] - Please follow up with your Primary Care Physician in: within 1-2 weeks When: [facility] [place] within 1-2 weeks Disposition: Long Term facility Minutes spent on discharge:: 45 Patient Condition:: Stable Medical Necessity - Tobacco Use Smoking Status: Unknown if ever smoked Tobacco Use: Non-smoker Meaningful Use Info Meaningful Use Diagnoses (Choose all that apply): None applicable Inpatient E&M: 68447 Disch Hosp
== END 2020-06-15 18:09 | disposition skilled nursing facility (03) | DRG 637 ==
LOC: ED 02:01 → ICU 05:22 → PCU 06-12 11:19
PROVIDERS: Internal Medicine Critical Care Medicine; Student in an Organized Health Care Education/Training Program; Admitting Provider Family Medicine; Emergency Provider Emergency Medicine; PCP Family Medicine; Visit Provider Internal Medicine
DX: E11.649 Type 2 diabetes mellitus with hypoglycemia without coma (principal); G93.41 Metabolic encephalopathy; S22.41XA Multiple fractures of ribs, right side, initial encounter for closed fracture; N39.0 Urinary tract infection, site not specified; I47.2 Ventricular tachycardia; J90 Pleural effusion, not elsewhere classified; R06.89 Other abnormalities of breathing; R09.02 Hypoxemia; W19.XXXA Unspecified fall, initial encounter; Y93.9 Activity, unspecified; Y92.9 Unspecified place or not applicable; D63.8 Anemia in other chronic diseases classified elsewhere; B96.20 Unspecified Escherichia coli [E. coli] as the cause of diseases classified elsewhere; B96.89 Other specified bacterial agents as the cause of diseases classified elsewhere; Z86.73 Personal history of transient ischemic attack (TIA), and cerebral infarction without residual deficits; I25.10 Atherosclerotic heart disease of native coronary artery without angina pectoris; Z95.810 Presence of automatic (implantable) cardiac defibrillator; Z95.1 Presence of aortocoronary bypass graft; G20 Parkinson's disease; E78.5 Hyperlipidemia, unspecified; E03.9 Hypothyroidism, unspecified; F41.9 Anxiety disorder, unspecified; F32.9 Major depressive disorder, single episode, unspecified; I48.0 Paroxysmal atrial fibrillation; K21.9 Gastro-esophageal reflux disease without esophagitis; E78.00 Pure hypercholesterolemia, unspecified; I35.0 Nonrheumatic aortic (valve) stenosis; Z85.47 Personal history of malignant neoplasm of testis; Z79.82 Long term (current) use of aspirin; Z79.899 Other long term (current) drug therapy; Z79.4 Long term (current) use of insulin
CPT/HCPCS: 36415; 36600; 70450; 71045; 71275; 80048; 80053; 80061; 81001; 82140; 82274; 82607; 82746; 82803; 82962; 83036; 83735; 84439; 84443; 84484; 85025; 87635; 94003; 94640; 94660; 95819; 97110; 97116; 97162; 97166; 97530; 97535; 97802; 99251; 99285; J7040; J7050; Q9967; A4216; G0463; J1940; U0003

== ENCOUNTER 2020-06-16 18:39 | Emergency (ER) | payer OTHER, MEDICARE, SELFPAY ==
[2020-06-11 05:49] VITALS: BMI 24.0
[2020-06-16 18:40] VITALS: BP 178/88; PULSE 73; RESP 15; TEMP 36.7; O2SAT 99; BMI 25.2
[2020-06-16] MEDS: Ondansetron 4 MG/2 ML Vial IV (19:01)
[2020-06-16] MEDS: 0.9% Normal Saline 1,000 ML 1000 ML IV (19:01)
[2020-06-16 19:04] LABS: Absolute Lymphocyte Count 0.56 X10^3/uL (0.83-4.51); Basophil# 0.02 X10^3/uL; Basophil% 0.3 % (0-1); Eosinophil# 0.06 X10^3/uL; Eosinophils% 0.8 % (0-5); Hematocrit 32.7 % (40-54); Hemoglobin 10.3 g/dL (13.0-16.5); Lymphocyte # 0.56 X10^3/ul (4.0); Lymphocyte % 7.9 % (19-41); Mean Corp Hgb Conc 31.5 g/dL (32-36); Mean Corpuscular Volume 88.9 fL (80-94); Mean Platelet Vol. 8.5 fl (6.2-12.0); Monocyte# 0.46 X10^3/uL; Monocyte% 6.5 % (0-10); NRBC Flagged by Analyzer 0 % (0-5); Neutrophil # 5.97 X10^3/uL (2.7-7.7); Neutrophil % 83.9 % (47-70); POSITIVE DIFFERENTIAL YES; Platelet Count 426 K/mm3 (150-450); RBC Distribution Width SD 54.4 fl (35.1-43.9); Red Blood Count 3.68 M/mm3 (4.6-6.2); White Blood Count 7.1 K/mm3 (4.4-11.0)
[2020-06-16 19:09] LABS: Differential Indicated SCAN CRITERIA MET
[2020-06-16 19:19] LABS: ALB/GLOB Ratio 0.8 RATIO (0.9-2.4); AST(SGOT) 5 U/L (15-37); Alanine Aminotransfer ALT/SGPT 14 U/L (16-61); Albumin, Serum 3.2 g/dL (3.2-5.0); Alkaline Phosphatase 174 U/L (45-117); Anion Gap 10 (5-15); BUN 21 mg/dL (7-18); BUN/Creat Ratio 26.2 RATIO (10-20); Calcium,Total 9.4 mg/dL (8.5-10.1); Chloride 104 mmol/L (98-107); EST Glomerular Filtration Rate 100 mL/min (>60); Est Glom Filt Rate - Afr Amer 121 mL/min (>60); Estimated Creatinine Clearance 65.78 ml/min; Globulin 4.2 g/dL (2.2-4.2); Glucose 176 mg/dL (74-106); Potassium 3.7 mmol/L (3.5-5.1); Protein, Total 7.4 g/dL (6.4-8.2); Sodium Level 139 mmol/L (136-145)
[2020-06-16 19:28] LABS: Anisocytosis RARE; Hypochromasia RARE; Macrocytosis RARE; Ovalocyte RARE; Platelet Estimate SLT INC (ADEQ); Red Cell Morphology N CHROM NORMAL (NORM C&C)
[2020-06-16] MEDS: Metoclopramide 10 MG/2 ML Vial 5 MG IV (20:03)
--- NOTE | 2020-06-16 20:04 | ED.VIS.GEN ---
History of Present Illness Chief Complaint: Nausea/Vomiting Informant: Patient Onset: Today Context: Sudden Onset Timing: Intermittent Quality: Nausea and vomiting x10 Location: GI Current Severity: Severe Maximum Severity: Severe Worsened by: Nothing Relieved by: Nothing Associated Symptoms: Bowel movement this morning and normal. Positive flatus Narrative: Patient is an elderly male presents with nausea vomiting x10. He complains of thirst, dry mouth and orthostatic symptoms. He reports decreased urine output. He denies hematemesis, melena and reports flatus since this morning His bowel movement this morning was normal. He reports positive flatus. He complains of generalized weakness. He denies fever, chills night sweats. He denies any infectious or respiratory symptoms. He denies history of bowel obstruction. Prior similar symptoms: No Recent Illness/Hospitalization: No - Past Medical History (1) Acute on chronic anemia Status: Acute (2) Hypoglycemia Status: Acute (3) Seizure Status: Acute (4) Aortocoronary bypass status Status: Chronic Comment: CABG x4- MONTERO to LAD, EPIFANIO to the Distal RCA, Right Radial Artery to the OM branch of CX, and Reverse SVG from the aorta to the Distal RCA 08/17/01 (5) Hyperlipidemia Status: Chronic (6) Implantable cardioverter-defibrillator (ICD) at end of battery life Status: Chronic (7) Long-term use of high-risk medication Status: Chronic (8) Nonrheumatic aortic (valve) stenosis Status: Chronic (9) Paroxysmal atrial fibrillation Status: Chronic (10) Paroxysmal ventricular tachycardia Status: Chronic (11) Type 2 diabetes mellitus Status: Chronic Past Medical History - Allergies and Home Meds Allergies/Adverse Reactions: Allergies Iodine and Iodide Containing Produc Allergy (Verified 06/16/20 18:43) Shortness of breath simvastatin Adverse Reaction (Verified 06/16/20 18:43) Other Primary Care Physician: Roselyn Goldberg MD [Primary Care Provider] - Prior records reviewed: Yes Surgical History: coronary bypass surgery, - - Unilateral orchiectomy, appendectomy, tonsillectomy, CABG x4, RFA, ICD placement. Lives: Residential Smoking Status: Unknown if ever smoked Alcohol: None Drugs: None - Family History Maternal Family History: Family History (Last Reviewed 06/01/20 @ 11:[address] Darren Chou MD) Father CAD (coronary artery disease) Myocardial infarction Mother CAD (coronary artery disease) Sister Diabetes Sister CAD (coronary artery disease) Hx of CABG Family History: Reports: High Cholesterol, Heart Disease, Hypertension Paternal Family History: Family History (Last Reviewed 06/01/20 @ 11:[address] Darren Chou MD) Father CAD (coronary artery disease) Myocardial infarction Mother CAD (coronary artery disease) Sister Diabetes Sister CAD (coronary artery disease) Hx of CABG Family History: Reports: High Cholesterol, Heart Disease, Hypertension Review of Systems General: Denies: Chills, Fever, Malaise, Subjective, Sweats Eyes: Denies: Visual changes - bilaterally, Blurred Vision - bilaterally ENT: Denies: Rhinorrhea, Sore throat Cardiovascular: Denies: Chest pain, Palpitations Respiratory: Denies: Dyspnea, Cough, Dyspnea on exertion Gastrointestinal: Reports: Nausea, Vomiting. Denies: Abdominal pain, Diarrhea, Constipation, Melena, Hematochezia, -, - Genitourinary: Denies: Dysuria, Hematuria, Frequency Musculoskeletal: Denies: Myalgias, Arthralgias, Neck pain, Back pain, Swelling, Extremity Pain, -, - Skin: Denies: Rash, Wounds Neurological: Reports: Weakness. Denies: Parasthesia, Numbness Psych: Denies: Depression, Anxiety Hematologic: Denies: Easy bruising, Easy bleeding Physical Exam Vital Signs/Narrative: Vital Signs Temp Pulse Resp BP Pulse Ox 06/16/20 18:40 98.1 F 73 15 178/88 H 99 Inital Vital Signs reviewed: Yes General: Well nourished, Well developed, - - Patient does not appear well. Head: Normocephalic, Atraumatic Eyes: Perrl, EOMI. Negative for: Pale conjunctiva, Scleral icterus ENT: No rhinorrhea, Dry mucous membranes Neck: Supple, Nontender, No lymphadenopathy, No JVD Cardiovascular: Regular rate, Regular rhythm, No murmurs, Normal S1, Normal S2 Respiratory: No distress, CTA bilaterally, Chest nontender Abdomen: Soft, Nontender, Nondistended, Normal bowel sounds, No masses Rectal: Deferred Back: Nontender, Normal Inspection Extremities: Nontender, No edema Skin: No rash, No Trauma, Pallor. Negative for: Cyanosis, Diaphoresis, Jaundice Neurological: Alert, Oriented x3, Cranial nerves II-XII grossly intact, Normal Strength, Normal Sensation Psychological: Depressed Diagnostic/Tx/Re-eval Laboratory Results 06/16/20 06/16/20 18:50 18:50 WBC 7.1 RBC 3.68 L Hgb 10.3 L Hct 32.7 L MCV 88.9 MCH 28.0 MCHC 31.5 L RDW Std Deviation 54.4 H RDW Coeff of Mat 17.0 H Plt Count 426 MPV 8.5 Immature Gran % (Auto) 0.600 Neut % (Auto) 83.9 H Lymph % (Auto) 7.9 L [place] % (Auto) 6.5 Eos % (Auto) 0.8 Baso % (Auto) 0.3 Absolute Neuts (auto) 6.0 Absolute Lymphs (auto) 0.56 L Nucleated RBC % 0 Differential Comment SEE COMMENT Platelet Estimate SLT INC RBC Morphology N CHROM Hypochromasia RARE Anisocytosis RARE Macrocytosis RARE Ovalocytes RARE Sodium 139 Potassium 3.7 Chloride 104 Carbon Dioxide 25.0 Anion Gap 10 BUN 21 H Creatinine 0.80 Estim Creat Clear Calc 65.78 Est GFR (MDRD) Af Amer 121 Est GFR (MDRD) Non-Af 100 BUN/Creatinine Ratio 26.2 H Glucose 176 H Calcium 9.4 Total Bilirubin 0.50 AST 5 L ALT 14 L Alkaline Phosphatase 174 H Total Protein 7.4 Albumin 3.2 Globulin 4.2 Albumin/Globulin Ratio 0.8 L Blood work reveals prerenal azotemia. Blood sugar is elevated 176. CBC is unremarkable. Patient was able to pass p.o. challenge after Reglan. Plan is to discharge with prescription for Reglan. - Medical Decision Making With history of renal impairment will obtain electrolyte panel to assess electrolytes and renal function since he is vomiting significantly. He will receive IV bolus of normal saline. He was initially treated with Zofran. He reported no improvement. 5 mg of Reglan was ordered. ED Disposition - Plan for ED Patient: Disposition: Home or Assisted Living Diagnosis: Nausea and vomiting in adult, Moderate dehydration, Acute prerenal azotemia Instructions: ED Dehydration Adult, ED Nausea Vomiting Adult Prescriptions: Metoclopramide [Reglan] 10 mg PO 4X/DAY PRN #20 tab PRN Reason: Headache Prescription Printed Referrals: Roselyn Goldberg MD [Primary Care Provider] - 3-5 Days if not improving
[2020-06-16 20:52] VITALS: BP 147/65; PULSE 70; RESP 17; O2SAT 100
[2020-06-16] MEDS: HYDROcodone Bitartrate/Apap 5/325 Tablet PO (20:58)
[2020-06-16 21:22] VITALS: BP 162/80; PULSE 71; RESP 17; O2SAT 100
--- NOTE | 2020-06-16 21:24 | ED.RN ---
report called to sariah
[2020-06-16] MEDS: Metoclopramide 10 MG/2 ML Vial 5 MG IM (23:08)
== END 2020-06-16 23:13 | disposition home or self-care (01) ==
PROVIDERS: Emergency Provider Emergency Medicine; PCP Internal Medicine
DX: R11.2 Nausea with vomiting, unspecified (principal); E86.0 Dehydration; R79.89 Other specified abnormal findings of blood chemistry; E11.9 Type 2 diabetes mellitus without complications; E78.5 Hyperlipidemia, unspecified; I35.0 Nonrheumatic aortic (valve) stenosis; I48.0 Paroxysmal atrial fibrillation; I47.2 Ventricular tachycardia; Z95.1 Presence of aortocoronary bypass graft; Z95.810 Presence of automatic (implantable) cardiac defibrillator; Z79.82 Long term (current) use of aspirin; Z79.899 Other long term (current) drug therapy
CPT/HCPCS: 80053; 85025; 96361; 96372; 96374; 96375; 99283; 99285; J7030; A4216; J2405

== ENCOUNTER 2020-06-17 17:22 | Inpatient (IN) | payer OTHER, MEDICARE, SELFPAY ==
[2020-06-16 18:40] VITALS: BMI 25.2
[2020-06-17 17:25] VITALS: BP 156/103; PULSE 91; RESP 18; TEMP 36.8; O2SAT 100; BMI 27.1
--- NOTE | 2020-06-17 17:45 | EKG12_ITS ---
Test Reason : Blood Pressure : / mmHG Vent. Rate : 081 BPM Atrial Rate : 081 BPM P-R Int : 000 ms QRS Dur : 138 ms QT Int : 518 ms P-R-T Axes : 000 -59 -08 degrees QTc Int : 601 ms Suspect unspecified pacemaker failure Atrial fibrillation with frequent ventricular-paced complexes Left axis deviation Right bundle branch block Inferior infarct , age undetermined Abnormal ECG Confirmed by YUE CEVALLOS, YO ([id number]), non linear editor JESSICA OLIVER ([id number]) on 06/21/2020 1:09:23 P M Referred By: KIERRA/ANIYAH Confirmed By:MAURICE TURNER MD
--- NOTE | 2020-06-17 17:49 | ED.VIS.GEN ---
History of Present Illness Chief Complaint: Nausea/Vomiting Informant: Patient Onset: Days Context: Gradual Onset Current Severity: Mild Maximum Severity: Moderate Narrative: Patient returns today secondary to continued nausea and vomiting. He was seen in the ER yesterday where work-up showed mild dehydration. He was treated with Zofran without improvement in symptoms. After receiving Reglan he was able to pass a p.o. challenge. He went home with a prescription for Reglan. He states he was able to sleep okay last night but started vomiting again this morning. He was unable to keep the Reglan tabs down to help control his nausea. He denies fever or chills. He denies abdominal pain. He denies diarrhea. He does state that caregivers gave him some laxatives shortly before he arrived. - Past Medical History (1) Parkinsons Status: Chronic (2) Nonrheumatic aortic (valve) stenosis Status: Chronic (3) Paroxysmal atrial fibrillation Status: Chronic (4) Essential hypertension Status: Chronic (5) Atherosclerotic heart disease of [place] coronary artery without angina pectoris Status: Chronic Comment: CABG x4- MONTERO to LAD, EPIFANIO to the Distal RCA, Right Radial Artery to the OM branch of CX, and Reverse SVG from the aorta to the Distal RCA 08/17/01 (6) Aortocoronary bypass status Status: Chronic Comment: CABG x4- MONTERO to LAD, EPIFANIO to the Distal RCA, Right Radial Artery to the OM branch of CX, and Reverse SVG from the aorta to the Distal RCA 08/17/01 (7) Hyperlipidemia Status: Chronic (8) Implantable cardioverter-defibrillator (ICD) in situ Status: Chronic (9) Type 2 diabetes mellitus Status: Chronic Past Medical History - Allergies and Home Meds Allergies/Adverse Reactions: Allergies Iodine and Iodide Containing Produc Allergy (Verified 06/16/20 18:43) Shortness of breath simvastatin Adverse Reaction (Verified 06/16/20 18:43) Other Primary Care Physician: Roselyn Goldberg MD [Primary Care Provider] - Prior records reviewed: Yes Surgical History: coronary bypass surgery, - - Unilateral orchiectomy, appendectomy, tonsillectomy, CABG x4, RFA, ICD placement. Smoking Status: Former smoker - Family History Maternal Family History: Family History (Last Reviewed 06/01/20 @ 11:[address] Darren Chou MD) Father CAD (coronary artery disease) Myocardial infarction Mother CAD (coronary artery disease) Sister Diabetes Sister CAD (coronary artery disease) Hx of CABG Family History: Reports: High Cholesterol, Heart Disease, Hypertension Paternal Family History: Family History (Last Reviewed 06/01/20 @ 11:[address] Darren Chou MD) Father CAD (coronary artery disease) Myocardial infarction Mother CAD (coronary artery disease) Sister Diabetes Sister CAD (coronary artery disease) Hx of CABG Family History: Reports: High Cholesterol, Heart Disease, Hypertension Review of Systems General: Denies: Chills, Fever Eyes: Denies: Visual changes - bilaterally ENT: Denies: Bilateral ear pain Cardiovascular: Denies: Chest pain Respiratory: Denies: Dyspnea, Cough Gastrointestinal: Reports: Nausea, Vomiting. Denies: Abdominal pain, Diarrhea Genitourinary: Denies: Dysuria Musculoskeletal: Denies: Swelling, Extremity Pain Skin: Denies: Rash Neurological: Denies: Headache Hematologic: Denies: Easy bruising, Easy bleeding Allergy: Denies: Uticaria Physical Exam Vital Signs/Narrative: Vital Signs Temp Pulse Resp BP Pulse Ox 06/17/20 17:25 98.3 F 91 18 156/103 H 100 Inital Vital Signs reviewed: Yes General: Well nourished, Well developed Head: Normocephalic ENT: Moist mucous membranes Neck: Supple Cardiovascular: Regular rate, Regular rhythm Respiratory: No distress, CTA bilaterally Abdomen: Soft, Nontender, Hypoactive bowel sounds Extremities: Nontender Skin: Normal color Neurological: Alert, Oriented x3 Psychological: Normal affect Diagnostic/Tx/Re-eval Laboratory Results 06/17/20 06/17/20 17:45 17:45 WBC 7.1 RBC 3.79 L Hgb 10.5 L Hct 32.1 L MCV 84.7 MCH 27.7 MCHC 32.7 RDW Std Deviation 52.2 H RDW Coeff of Mat 16.9 H Plt Count 487 H MPV 8.1 Immature Gran % (Auto) 0.400 Neut % (Auto) 86.7 H Lymph % (Auto) 5.1 L [place] % (Auto) 7.7 Eos % (Auto) 0.0 Baso % (Auto) 0.1 Absolute Neuts (auto) 6.1 Absolute Lymphs (auto) 0.36 L Nucleated RBC % 0 Differential Comment SEE COMMENT Platelet Estimate ADEQUATE RBC Morphology N CHROM Sodium 141 Potassium 3.0 L Chloride 108 H Carbon Dioxide 21.0 Anion Gap 12 BUN 18 Creatinine 0.83 Estim Creat Clear Calc 63.40 Est GFR (MDRD) Af Amer 115 Est GFR (MDRD) Non-Af 95 BUN/Creatinine Ratio 21.6 H Glucose 205 H Calcium 9.2 Total Bilirubin 0.80 Direct Bilirubin 0.23 AST 12 L ALT 16 Alkaline Phosphatase 168 H Total Protein 7.6 Albumin 3.2 Globulin 4.4 H - EKG Initial EKG Interpretation: Atrial Fibrillation - Paced beats with underlying A. fib. Right bundle branch block noted. No significant change when compared to prior study of June 01, 2020. - Medical Decision Making Patient was given IV fluids and IV Reglan. He does have some improvement in nausea but is still not plan to take p.o. Potassium has dropped to 3.0. This to be replaced IV. I will discuss with hospitalist as patient did fail outpatient management. ED Disposition - Plan for ED Patient: Disposition: Acute Care [facility] Diagnosis: Vomiting, Hypokalemia Referrals: Roselyn Goldberg MD [Primary Care Provider] -
[2020-06-17] MEDS: 0.9% Normal Saline 1,000 ML 150 ML IV (17:51)
[2020-06-17] MEDS: Metoclopramide 10 MG/2 ML Vial 5 MG IV (17:52)
[2020-06-17 17:58] LABS: Absolute Lymphocyte Count 0.36 X10^3/uL (0.83-4.51); Absolute Neutrophil Count 6.1 X10^3/uL (2.0-7.7); Basophil# 0.01 X10^3/uL; Basophil% 0.1 % (0-1); Hematocrit 32.1 % (40-54); Hemoglobin 10.5 g/dL (13.0-16.5); Lymphocyte # 0.36 X10^3/ul (4.0); Lymphocyte % 5.1 % (19-41); Mean Corp Hgb Conc 32.7 g/dL (32-36); Mean Corpuscular Hgb 27.7 pg (27.0-32.0); Mean Corpuscular Volume 84.7 fL (80-94); Mean Platelet Vol. 8.1 fl (6.2-12.0); Monocyte# 0.54 X10^3/uL; Monocyte% 7.7 % (0-10); NRBC Flagged by Analyzer 0 % (0-5); Neutrophil # 6.11 X10^3/uL (2.7-7.7); Neutrophil % 86.7 % (47-70); POSITIVE DIFFERENTIAL YES; Platelet Count 487 K/mm3 (150-450); RBC Distribution Width CV 16.9 % (11.6-14.6); RBC Distribution Width SD 52.2 fl (35.1-43.9); Red Blood Count 3.79 M/mm3 (4.6-6.2); White Blood Count 7.1 K/mm3 (4.4-11.0)
[2020-06-17 18:12] LABS: AST(SGOT) 12 U/L (15-37); Alanine Aminotransfer ALT/SGPT 16 U/L (16-61); Albumin, Serum 3.2 g/dL (3.2-5.0); Alkaline Phosphatase 168 U/L (45-117); Anion Gap 12 (5-15); BUN 18 mg/dL (7-18); BUN/Creat Ratio 21.6 RATIO (10-20); Bilirubin, Direct 0.23 mg/dL (0.00-0.30); Calcium,Total 9.2 mg/dL (8.5-10.1); Chloride 108 mmol/L (98-107); Creatinine, Serum 0.83 mg/dL (0.70-1.30); EST Glomerular Filtration Rate 95 mL/min (>60); Est Glom Filt Rate - Afr Amer 115 mL/min (>60); Globulin 4.4 g/dL (2.2-4.2); Glucose 205 mg/dL (74-106); Protein, Total 7.6 g/dL (6.4-8.2); Sodium Level 141 mmol/L (136-145)
[2020-06-17 18:41] LABS: Differential Indicated SCAN CRITERIA MET
[2020-06-17 18:44] LABS: Platelet Estimate ADEQUATE (ADEQ); Red Cell Morphology N CHROM NORMAL (NORM C&C)
--- NOTE | 2020-06-17 19:38 | PCM.HP.STD ---
Problem List (1) Nausea & vomiting Status: Acute (2) Encephalopathy acute Status: Inactive (3) Seizure Status: Chronic (4) Hypoglycemia Status: Inactive (5) Hypoxia Status: Inactive (6) Parkinsons Status: Chronic (7) Vomiting Status: Acute (8) Hypokalemia Status: Acute (9) Acute on chronic anemia Status: Acute (10) Rib fracture Status: Inactive (11) Acute kidney injury Status: Acute (12) Implantable cardioverter-defibrillator (ICD) at end of battery life Status: Chronic (13) Nonrheumatic aortic (valve) stenosis Status: Chronic (14) Paroxysmal atrial fibrillation Status: Chronic (15) Essential hypertension Status: Chronic (16) Atherosclerotic heart disease of [place] coronary artery without angina pectoris Status: Chronic Qualifiers: [place] vs. transplanted heart: [place] heart Qualified Code(s): I25.10 - Atherosclerotic heart disease of [place] coronary artery without angina pectoris Comment: CABG x4- MONTERO to LAD, EPIFANIO to the Distal RCA, Right Radial Artery to the OM branch of CX, and Reverse SVG from the aorta to the Distal RCA 08/17/01 (17) Aortocoronary bypass status Status: Chronic Comment: CABG x4- MONTERO to LAD, EPIFANIO to the Distal RCA, Right Radial Artery to the OM branch of CX, and Reverse SVG from the aorta to the Distal RCA 08/17/01 (18) Hyperlipidemia Status: Chronic Qualifiers: Hyperlipidemia type: unspecified Qualified Code(s): E78.5 - Hyperlipidemia, unspecified (19) Carotid bruit Status: Chronic (20) Long-term use of high-risk medication Status: Chronic (21) Paroxysmal ventricular tachycardia Status: Chronic (22) Implantable cardioverter-defibrillator (ICD) in situ Status: Chronic (23) Type 2 diabetes mellitus Status: Chronic Qualifiers: Diabetes mellitus terminal carman insulin use: with terminal carman use Diabetes mellitus complication status: without complication Qualified Code(s): E11.9 - Type 2 diabetes mellitus without complications; Z79.4 - group home (current) use of insulin History of Present Illness Date of Admission: 06/17/20 Chief Complaint: nausea and vomiting The patient is a 75 year old M presents with a 2-day history of nausea and vomiting. Patient was discharged on the with encephalopathy. During that hospitalization, patient was noted to have a low blood sugar of 54 patient had a seizure that was felt to be related with hypoglycemia. Patient was temporally put on thoracic and this is been discontinued as it was felt to be a hypoglycemia induced seizure. Encephalopathy was felt to be related with hypoxia, hypoglycemia. On the , patient started having nausea and vomiting. Zofran was attempted and patient still had nausea vomiting but did seem to tolerate metoclopramide and was discharged with that. He had a p.o. challenge during that emergency room visit and tolerated it. However, since returning back to the care home facility, patient continues to have nausea and vomiting and unable to take oral, including his medications. Patient is never had issues with nausea and vomiting like this in the past [] Past Medical History Past Medical History (Chronic Problems): Chronic Problems (Last Reviewed 03/06/20 @ 04:[address] Vick Gay MD) Seizure (Chronic) Parkinsons (Chronic) Implantable cardioverter-defibrillator (ICD) at end of battery life (Chronic) Nonrheumatic aortic (valve) stenosis (Chronic) Paroxysmal atrial fibrillation (Chronic) Essential hypertension (Chronic) Atherosclerotic heart disease of [place] coronary artery without angina pectoris (Chronic) CABG x4- MONTERO to LAD, EPIFANIO to the Distal RCA, Right Radial Artery to the OM branch of CX, and Reverse SVG from the aorta to the Distal RCA 08/17/01 Aortocoronary bypass status (Chronic ~08/17/01) CABG x4- MONTERO to LAD, EPIFANIO to the Distal RCA, Right Radial Artery to the OM branch of CX, and Reverse SVG from the aorta to the Distal RCA 08/17/01 Hyperlipidemia (Chronic) Carotid bruit (Chronic) Long-term use of high-risk medication (Chronic) Paroxysmal ventricular tachycardia (Chronic) Implantable cardioverter-defibrillator (ICD) in situ (Chronic ~10/23/11) Type 2 diabetes mellitus (Chronic) Medical History: Medical History (Last Reviewed 06/17/20 @ 19:[address] Randall Garcia DO) Nonrheumatic aortic (valve) stenosis (Chronic) I35.0 Paroxysmal atrial fibrillation (Chronic) I48.0 Essential hypertension (Chronic) I10 Atherosclerotic heart disease of [place] coronary artery without angina pectoris (Chronic) I25.10 CABG x4- MONTERO to LAD, EPIFANIO to the Distal RCA, Right Radial Artery to the OM branch of CX, and Reverse SVG from the aorta to the Distal RCA 08/17/01 Hyperlipidemia (Chronic) E78.5 Carotid bruit (Chronic) R09.89 Long-term use of high-risk medication (Chronic) Z79.899 Paroxysmal ventricular tachycardia (Chronic) I47.2 Type 2 diabetes mellitus (Chronic) E11.9 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 Parkinsons disease G20 Atrial flutter (Inactive) I48.92 Hypertension (Inactive) I10 Allergies Iodine and Iodide Containing Produc Allergy (Verified 06/16/20 18:43) Shortness of breath simvastatin Adverse Reaction (Verified 06/16/20 18:43) Other Home Medications: Ambulatory Orders Medication Instructions Recorded Atorvastatin Calcium [Lipitor] 20 mg PO QHS 09/27/14 Diltiazem HCl [Diltiazem 24Hr ER 180 mg PO DAILY 09/27/14 (Cd)] Lisinopril [Zestril] 5 mg PO DAILY 09/27/14 buPROPion tablets [Wellbutrin 150 mg PO DAILY 09/27/14 tablets] metFORMIN HCl [Glucophage] 500 mg PO TIDCM 09/27/14 aspirin 325 mg tablet 325 mg PO QDAY 01/12/18 carbidopa 25 mg-levodopa 250 mg 2 tab PO 4X/DAY tab 01/12/18 tablet gabapentin 600 mg tablet 600 mg PO BID 01/12/18 calcium citrate 315 mg-vitamin D3 1 tab PO DAILY 10/22/18 250 unit tablet ferrous sulfate 325 mg (65 mg 325 mg PO TID tab 10/22/18 iron) tablet isosorbide mononitrate 60 mg 30 mg PO DAILY tab 10/22/18 tablet,extended release 24 hr sertraline 100 mg tablet 150 mg PO DAILY tab 10/22/18 Ascorbic Acid [Vitamin C] 500 mg PO DAILY 02/07/20 Entacapone [Comtan] 200 mg PO 4X/DAY 02/07/20 Famotidine 20 mg PO QHS 02/07/20 Omeprazole 40 mg PO BID 02/07/20 levothyroxine 137 mcg tablet 175 mcg PO DAILY tab 03/24/20 Albuterol Aerosols [Ventolin 2.5 mg INHALATION Q4HWA.RT 06/01/20 Aerosols] Cyanocobalamin [Vitamin B12] 1,000 mcg PO DAILY@0800 06/01/20 Tamsulosin HCl [Flomax] 0.4 mg PO DAILY@1730 #90 cap 06/03/20 Furosemide [Lasix] 40 mg PO BID@1000,1800 tab 06/15/20 Guaifenesin [Robitussin] 10 ml PO Q4H PRN PRN udc 06/15/20 Senna/Docusate Sodium [Senokot-S] 2 tab PO BID PRN PRN tab 06/15/20 Acetaminophen [Pain Relief] 650 mg PO TID PRN PRN 06/16/20 Bisacodyl [Gentle Laxative] 10 mg RC DAILY PRN PRN 06/16/20 Glucagon 1 mg IM X1 06/16/20 Magnesium Hydroxide [Milk Of 30 ml PO DAILY PRN PRN 06/16/20 Magnesia] Metoclopramide [Reglan] 10 mg PO 4X/DAY PRN #20 tab 06/16/20 Sodium Phosphate,[place]-Dibasic 1 bottle RC DAILY PRN PRN 06/16/20 [Enema Ready To Use] Surgical History: Surgical History (Last Reviewed 06/17/20 @ 19:[address] Randall Garcia DO) Aortocoronary bypass status (Chronic) Onset Date: ~08/17/01 Z95.1 CABG x4- MONTERO to LAD, EPIFANIO to the Distal RCA, Right Radial Artery to the OM branch of CX, and Reverse SVG from the aorta to the Distal RCA 08/17/01 Implantable cardioverter-defibrillator (ICD) in situ (Chronic) Onset Date: ~10/23/11 Z95.810 History of appendectomy Z90.49 History of cardiac radiofrequency ablation Onset Date: ~06/2003 Z98.890 History of orchiectomy, unilateral Z90.79 History of tonsillectomy Z90.89 Surgical History: coronary bypass surgery, - - Unilateral orchiectomy, appendectomy, tonsillectomy, CABG x4, RFA, ICD placement. Psychiatric History: No pertinent psych hx Smoking Status: Former smoker - *Family History Maternal Family History: Family History (Last Reviewed 06/17/20 @ 19:[address] Randall Garcia DO) Father CAD (coronary artery disease) Myocardial infarction Mother CAD (coronary artery disease) Sister Diabetes Sister CAD (coronary artery disease) Hx of CABG History Items: High Cholesterol, Heart Disease, Hypertension Paternal Family History: Family History (Last Reviewed 06/17/20 @ 19:[address] Randall Garcia DO) Father CAD (coronary artery disease) Myocardial infarction Mother CAD (coronary artery disease) Sister Diabetes Sister CAD (coronary artery disease) Hx of CABG History Items: High Cholesterol, Heart Disease, Hypertension Review of Systems Constitutional: Denies: Anorexia, Chills, Fever, Night Sweats Eyes: Denies: Blurred vision, Double vision HEENT: Denies: Head Aches, Sinus Congestion, Sinus Drainage Cardiovascular: Denies: Chest Pain, Chest Tightness Respiratory: Denies: Cough, Shortness of breath at rest, Sputum production Gastrointestinal: Reports: Nausea, Vomiting. Denies: Abdominal Pain Comment: All review of systems were negative except as mentioned above in the history of present illness and the other review of systems. VTE Information - Inpt Only VTE Present on Admission: No VTE Mechan Device Prophylaxis: None VTE Pharm Prophylaxis ordered?: No Reason prophylaxis not ordered:: Treatment Not Indicated Patient Problems: Active and Suspected Problems (Last Reviewed 03/06/20 @ 04:[address] Vick Gay MD) Vomiting (Acute) Hypokalemia (Acute) - Physical Exam Vitals/I&O's: Vital Signs Temp Pulse Resp BP Pulse Ox 36.8 C 91 18 156/103 H 100 06/17/20 17:25 06/17/20 17:25 06/17/20 17:25 06/17/20 17:25 06/17/20 17:25 Oxygen Delivery Method Room Air Weight: 71.668 kg Body Mass Index (BMI) 27.1 Finger Stick Blood Glucose 151 General: Alert, No apparent distress HEENT: Atraumatic, Normocephalic Oral: Moist Mucosa, No Gingival or Mucosal Lesions/ Ulcerations Neck: No Nodes, Thyroid Normal Size and Texture Lungs: Clear to auscultation, Normal air movement, No rhonchi, No wheeze, No rales Cardiovascular: Regular rate, Regular Rhythm, Normal S1, Normal S2, No murmurs Abdomen: Bowel Sounds Present, Soft, Non Tender, Non-Distended, No Hepato-splenomegaly Extremities: No edema Skin: No rashes, No breakdown Musculoskeletal: Cachexia, Muscle Wasting Neurological: Sensory exam intact to light touch and pain, - - no tremors Psych/Mental Status: Normal Affect, Appropriate Laboratory Results 06/17/20 17:45: WBC 7.1, RBC 3.79 L, Hgb 10.5 L, Hct 32.1 L, MCV 84.7, MCH 27.7, MCHC 32.7, RDW Std Deviation 52.2 H, RDW Coeff of Mat 16.9 H, Plt Count 487 H, MPV 8.1, Immature Gran % (Auto) 0.400, Neut % (Auto) 86.7 H, Lymph % (Auto) 5.1 L, [place] % (Auto) 7.7, Eos % (Auto) 0.0, Baso % (Auto) 0.1, Absolute Neuts (auto) 6.1, Absolute Lymphs (auto) 0.36 L, Nucleated RBC % 0, Differential Comment SEE COMMENT, Platelet Estimate ADEQUATE, RBC Morphology N CHROM 06/17/20 17:45: Sodium 141, Potassium 3.0 L, Chloride 108 H, Carbon Dioxide 21.0, Anion Gap 12, BUN 18, Creatinine 0.83, Estim Creat Clear Calc 63.40, Est GFR (MDRD) Af Amer 115, Est GFR (MDRD) Non-Af 95, BUN/Creatinine Ratio 21.6 H, Glucose 205 H, Calcium 9.2, Total Bilirubin 0.80, Direct Bilirubin 0.23, AST 12 L, ALT 16, Alkaline Phosphatase 168 H, Total Protein 7.6, Albumin 3.2, Globulin 4.4 H Current Medications Sodium Chloride () 1,000 mls @ 150 mls/hr IV .Q6H40M [facility] Last Admin: 06/17/20 17:51 Dose: 150 mls/hr Documented by: Potassium Chloride () 10 meq in 100 mls @ 100 mls/hr IV BOLUS Q1H [facility] Stop: 06/17/20 22:59 Assessment/Plan All Active Problems (Last Reviewed 03/06/20 @ 04:[address] Vick Gay MD) Vomiting (Acute) Hypokalemia (Acute) Nausea & vomiting (Acute) Acute on chronic anemia (Acute) Acute kidney injury (Acute) 1. Intractable nausea and vomiting: Suspect that patient has some autonomic issues related with is Parkinson's disease. Could also be the fact that he has not been able to take any of his Sinemet or Comtan. Though I will hold his Comtan for now we will continue with his Sinemet. Patient states that there is been no recent change to that medication. Since patient did not tolerate Zofran, I would not continue with that. I informed the patient and his daughter that I would not have metoclopramide nor Phenergan given the risk of tardive dyskinesia in a patient already with a movement disorder. Patient will be on clear diet and once he is able to tolerate more than he can be advanced further. 2. Hypokalemia: Related with the nausea and vomiting. Placing in the emergency room IV fluids with potassium. Check magnesium and 2. 3. Parkinson's disease continue with Sinemet but hold off on the Comtan 4. Diabetes mellitus type 2: Hold on the metformin particular since patient is not eating currently. Hold off on sliding scale as well. 5. VTE prophylaxis: Low risk as he is observation status 6. Advanced care planning: Patient is DNR Comfort Care arrest from care home facility OBSV E&M: [id number] Initial observation care L3
[2020-06-17] MEDS: Potassium Chloride 10mEq/100mL 10 MEQ/100 ML IV.SOLN. 100 MEQ IV BOLUS ×4 (19:57→23:01)
[2020-06-17 20:01] VITALS: BP 175/57; PULSE 76; RESP 18; TEMP 36.8; O2SAT 99
[2020-06-17 20:28] VITALS: BP 172/60; PULSE 79; RESP 18; TEMP 36.6; O2SAT 100
[2020-06-17 20:38] VITALS: BMI 23.3
[2020-06-17 20:45] VITALS: BMI 23.3
[2020-06-17 20:53] LABS: Magnesium 1.5 mg/dL (1.6-2.6)
[2020-06-17 21:22] VITALS: PULSE 84
[2020-06-17] MEDS: Pantoprazole Sodium 40 MG Tablet PO (21:38)
[2020-06-17] MEDS: Famotidine 20 MG Tablet PO (21:38)
[2020-06-17] MEDS: Carbidopa/Levodopa 25/250 Tablet PO (21:39)
[2020-06-17] MEDS: Atorvastatin Calcium 20 MG Tablet PO (23:03)
[2020-06-17] MEDS: Gabapentin 600 MG Tablet PO (23:03)
[2020-06-17 23:11] LABS: Bedside Glucose 194 mg/dL (70-110)
[2020-06-18] VITALS (10 sets, daily range): BP systolic 110–161; BP diastolic 48–58; PULSE 69–80; RESP 14–18; TEMP 36–36.5; O2SAT 97–100; BMI 23.3
[2020-06-18] MEDS: Albuterol 2.5 MG/3 ML VIAL.NEB. INHALATION ×3 (00:25→11:41)
[2020-06-18] MEDS: 0.9% Normal Saline 1,000 ML 150 ML IV (03:38)
[2020-06-18] MEDS: Levothyroxine 175 MCG Tablet PO (05:31)
[2020-06-18 05:37] LABS: Anion Gap 6 (5-15); BUN 15 mg/dL (7-18); BUN/Creat Ratio 23.1 RATIO (10-20); Calcium,Total 8.1 mg/dL (8.5-10.1); Chloride 109 mmol/L (98-107); Creatinine, Serum 0.65 mg/dL (0.70-1.30); EST Glomerular Filtration Rate 127 mL/min (>60); Est Glom Filt Rate - Afr Amer 154 mL/min (>60); Estimated Creatinine Clearance 52.62 ml/min; Glucose 149 mg/dL (74-106); Sodium Level 140 mmol/L (136-145)
[2020-06-18 07:47] LABS: Magnesium 1.5 mg/dL (1.6-2.6)
[2020-06-18 08:36] LABS: Bedside Glucose 137 mg/dL (70-110)
--- NOTE | 2020-06-18 08:40 | RAD_ITS ---
STUDY: X-RAY - ABDOMEN/PELVIS REASON FOR EXAM: Male, 75 years old. recurrent vomitting TECHNIQUE: AP supine and upright views of the abdomen and pelvis. COMPARISON: None. FINDINGS: Normal visualized lung bases. There is an unremarkable bowel gas pattern. There is no demonstrated free abdominal air. The visualized liver, spleen and kidneys are grossly normal in size and morphology. Normal soft tissue structures. Normal visualized osseous structures. RAD/Abd Decub and/or Erect(Portabl IMPRESSION: Normal x-ray examination of the abdomen and pelvis. Electronically Signed: Edmond Lazcano MD at 9:21 EDT Tel , Service support ,
[2020-06-18] MEDS: Potassium Chloride 10mEq/100mL 10 MEQ/100 ML IV.SOLN. 100 MEQ IV BOLUS ×4 (08:52→12:12)
[2020-06-18] MEDS: Calcium Carb/Vitamin D 1 TABLET Tablet PO (08:54)
[2020-06-18] MEDS: buPROPion (SR) 150 MG Tablet.SA PO (08:54)
[2020-06-18] MEDS: Cyanocobalamin 500 MCG Tablet 1000 MCG PO (08:54)
[2020-06-18] MEDS: Ensure Clear 120 ML Liquid PO ×2 (08:54→21:05)
[2020-06-18] MEDS: Ferrous Sulfate 325 MG Tablet PO ×3 (08:55→17:25)
[2020-06-18] MEDS: dilTIAZem CD 180 MG Capsule PO (08:55)
[2020-06-18] MEDS: Ascorbic Acid 500 MG Tablet PO (08:55)
[2020-06-18] MEDS: Gabapentin 600 MG Tablet PO ×2 (08:55→21:05)
[2020-06-18 08:56] LABS: Bedside Glucose 150 mg/dL (70-110)
[2020-06-18] MEDS: Carbidopa/Levodopa 25/250 Tablet PO ×4 (08:56→21:05)
[2020-06-18] MEDS: Pantoprazole Sodium 40 MG Tablet PO ×2 (08:56→21:05)
[2020-06-18] MEDS: Furosemide 40 MG Tablet PO ×2 (08:56→17:25)
[2020-06-18] MEDS: Lisinopril 5 MG Tablet PO (08:57)
[2020-06-18] MEDS: Isosorbide Mononitrate 60 MG Tablet 30 MG PO (08:57)
[2020-06-18] MEDS: Aspirin 325 MG Tablet PO (08:57)
[2020-06-18] MEDS: 0.9% Normal Saline 1,000 ML 75 ML IV (11:09)
[2020-06-18] MEDS: Lidocaine 5% Patch 1 PATCH TOPICAL (11:09)
[2020-06-18] MEDS: Sertraline 50 MG Tablet 150 MG PO (11:11)
[2020-06-18 11:51] LABS: Bedside Glucose 229 mg/dL (70-110)
--- NOTE | 2020-06-18 13:07 | PCM.NTREPORT ---
Nutrition Therapy Report - History Nutrition Services has been consulted to:: Manage nutrient details of diet order Current diet / nutrition support order:: clear liquids, 120mL ensure clear 4x/day - Anthropometric Measurements Height:: 5 ft 4 in Weight:: 61.5 kg Body Mass Index (BMI):: 23.3 - Relevant Labs Relevant Labs:: RBC 3.79 M/mm3 (4.6-6.2) L 06/17/20 17:45 Hgb 10.5 g/dL (13.0-16.5) L 06/17/20 17:45 Hct 32.1 % (40-54) L 06/17/20 17:45 RDW Std Deviation 52.2 fl (35.1-43.9) H 06/17/20 17:45 RDW Coeff of Mat 16.9 % (11.6-14.6) H 06/17/20 17:45 Plt Count 487 K/mm3 (150-450) H 06/17/20 17:45 Neut % (Auto) 86.7 % (47-70) H 06/17/20 17:45 Lymph % (Auto) 5.1 % (19-41) L 06/17/20 17:45 Absolute Lymphs (auto) 0.36 X10^3/uL (0.83-4.51) L 06/17/20 17:45 Potassium 3.0 mmol/L (3.5-5.1) L 06/18/20 05:05 Chloride 109 mmol/L (98-107) H 06/18/20 05:05 Creatinine 0.65 mg/dL (0.70-1.30) L 06/18/20 05:05 BUN/Creatinine Ratio 23.1 RATIO (10-20) H 06/18/20 05:05 Glucose 149 mg/dL (74-106) H 06/18/20 05:05 Calcium 8.1 mg/dL (8.5-10.1) L 06/18/20 05:05 Magnesium 1.5 mg/dL (1.6-2.6) L 06/18/20 05:05 AST 12 U/L (15-37) L 06/17/20 17:45 Alkaline Phosphatase 168 U/L (45-117) H 06/17/20 17:45 Globulin 4.4 g/dL (2.2-4.2) H 06/17/20 17:45 - Assessment Food / Nutrition-Related History:: Pt unable to provide much information at time of assessment. 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 Currently w/ bites of clear liquids since admission. Recently d/c'd from [facility]. Per RDN documentation on 06/15/20, pt had reported good appetite/intake at meals but had not been eating well during previous RDN assessments on 06/11 and 06/12. It was reported upon this admission pt has been nauseated w/ emesis at SNF. Review of wts in EMR show wt loss during previous admission (157.9# on 06/11 and 143.1# on 06/15(14.8#/9.3% wt loss)). Some wt loss during previous hopsital stay was anticipated as pt was on a diuretic, but cannot rule out some wt loss r/t inadequate oral intake. Pt now w/ wt of 135.6# suggesting a 7.5#/5.2% wt loss x 3 days, which is significant. - Nutrition Diagnosis Problem / Etiology / Signs & Symptoms (PES):: Pt w/ severe, acute malnutrition related to inadequate energy intake during acute hospitalization as evidenced by estimated PO intake meeting less than 50% of pt's estimated nutritional needs for greater than 5 days, wt loss of 7.5#, 5.2% over 3 days. Evidence of Malnutrition Exists:: Yes Severe PCM:: Acute Illness - Nutrition Intervention Nutrition Prescription:: [id number] calories, 60-70 g protein/day - Food / Nutrient Delivery Interventions Summary of nutrition intervention:: Will continue w/ ensure clear while on clear liquid diet. Will encourage PO intake as tolerated when diet advanced. Nutrition support ordered as / adjusted to:: advance as tolerated to regular; advance ONS as tolerated to Ensure Enlive - MNT Monitoring Further MNT monitoring and evaluation required?: Yes - daily wts MNT Follow-up in:: 3-5 days
--- NOTE | 2020-06-18 14:07 | PCM.PN.HOSP ---
Patient Problems: Active and Suspected Problems (Last Reviewed 06/17/20 @ 19:[address] Randall Garcia, DO) Vomiting (Acute) Hypokalemia (Acute) Nausea & vomiting (Acute) Acute on chronic anemia (Acute) Acute kidney injury (Acute) Reason for Visit: Follow-up on intractable nausea/vomiting/electrolyte imbalances Subjective: Patient was seen and examined. He feels comfortable. Seen eating Jell-O. He has not had a single episode of vomiting since being admitted. I had the patient previously and discharging him on Friday. He had a protracted stay in the hospital waiting on insurance precertification. No episodes of vomiting was reported. Unclear what happened in the detention. Objective: Physical exam: General: Alert, No apparent distress HEENT: Atraumatic, Normocephalic Oral: Moist Mucosa, No Gingival or Mucosal Lesions/ Ulcerations Neck: No Nodes, Thyroid Normal Size and Texture Lungs: Clear to auscultation, Normal air movement, No rhonchi, No wheeze, No rales Cardiovascular: Regular rate, Regular Rhythm, Normal S1, Normal S2, No murmurs Abdomen: Bowel Sounds Present, Soft, Non Tender, Non-Distended, No Hepato-splenomegaly Extremities: No edema Skin: No rashes, No breakdown Musculoskeletal: Cachexia, Muscle Wasting Neurological: Sensory exam intact to light touch and pain, - - no tremors Psych/Mental Status: Normal Affect, Appropriate Vitals/I&O's: Vital Signs Temp Pulse Resp BP Pulse Ox 97.5 F L 77 16 161/58 H 99 06/18/20 08:48 06/18/20 08:48 06/18/20 08:48 06/18/20 08:48 06/18/20 08:48 Oxygen Delivery Method Room Air Weight: 61.5 kg Body Mass Index (BMI) 23.3 Finger Stick Blood Glucose 151 Intake and Output for Last 24 Hours 06/16/20 06/17/20 06/18/20 23:59 23:59 23:59 Intake Total 755.83 / 1005.83 2950.00 / 2950.00 Output Total 200 / 200 Balance 755.83 / 805.83 2750.00 / 2750.00 Laboratory Results 06/17/20 17:45: WBC 7.1, RBC 3.79 L, Hgb 10.5 L, Hct 32.1 L, MCV 84.7, MCH 27.7, MCHC 32.7, RDW Std Deviation 52.2 H, RDW Coeff of Mat 16.9 H, Plt Count 487 H, MPV 8.1, Immature Gran % (Auto) 0.400, Neut % (Auto) 86.7 H, Lymph % (Auto) 5.1 L, Ada % (Auto) 7.7, Eos % (Auto) 0.0, Baso % (Auto) 0.1, Absolute Neuts (auto) 6.1, Absolute Lymphs (auto) 0.36 L, Nucleated RBC % 0, Differential Comment SEE COMMENT, Platelet Estimate ADEQUATE, RBC Morphology N CHROM 06/17/20 17:45: Sodium 141, Potassium 3.0 L, Chloride 108 H, Carbon Dioxide 21.0, Anion Gap 12, BUN 18, Creatinine 0.83, Estim Creat Clear Calc 63.40, Est GFR (MDRD) Af Amer 115, Est GFR (MDRD) Non-Af 95, BUN/Creatinine Ratio 21.6 H, Glucose 205 H, Calcium 9.2, Total Bilirubin 0.80, Direct Bilirubin 0.23, AST 12 L, ALT 16, Alkaline Phosphatase 168 H, Total Protein 7.6, Albumin 3.2, Globulin 4.4 H 06/17/20 17:45: Magnesium 1.5 L 06/17/20 23:07: POC Glucose 194 H 06/18/20 05:05: Sodium 140, Potassium 3.0 L, Chloride 109 H, Carbon Dioxide 25.0, Anion Gap 6, BUN 15, Creatinine 0.65 L, Estim Creat Clear Calc 52.62, Est GFR (MDRD) Af Amer 154, Est GFR (MDRD) Non-Af 127, BUN/Creatinine Ratio 23.1 H, Glucose 149 H, Calcium 8.1 L 06/18/20 05:05: Magnesium 1.5 L 06/18/20 07:10: POC Glucose 137 H 06/18/20 08:45: POC Glucose 150 H 06/18/20 11:31: POC Glucose 229 H Current Medications Acetaminophen (Acetaminophen 325 Mg Tablet) 650 mg PO Q6H PRN PRN PRN Reason: Pain Score 1-10/Temp > 100.7 F Acetaminophen (Acetaminophen 650 Mg Suppository) 650 mg RECTAL Q4H PRN PRN PRN Reason: Pain Score 1-10/Temp > 100.7 F Albuterol Sulfate (Albuterol 2.5 Mg/3 Ml Vial.Neb.) 2.5 mg INHALATION Q4HWA.RT [facility] Last Admin: 06/18/20 11:41 Dose: 2.5 mg Documented by: Ascorbic Acid (Ascorbic Acid 500 Mg Tablet) 500 mg PO DAILY [facility] Last Admin: 06/18/20 08:55 Dose: 500 mg Documented by: Aspirin (Aspirin 325 Mg Tablet) 325 mg PO DAILYCM [facility] Last Admin: 06/18/20 08:57 Dose: 325 mg Documented by: Atorvastatin Calcium (Atorvastatin Calcium 20 Mg Tablet) 20 mg PO QHS [facility] Last Admin: 06/17/20 23:03 Dose: 20 mg Documented by: Bisacodyl (Bisacodyl 10 Mg Suppository) 10 mg RECTAL DAILY PRN PRN PRN Reason: Constipation Bupropion HCl (Bupropion (Sr) 150 Mg Tablet.Sa) 150 mg PO DAILY [facility] Last Admin: 06/18/20 08:54 Dose: 150 mg Documented by: Calcium/Vitamin D (Calcium Carb/Vitamin D 1 Tablet Tablet) 1 tablet PO DAILY [facility] Last Admin: 06/18/20 08:54 Dose: 1 tablet Documented by: Carbidopa/Levodopa (Carbidopa/Levodopa 25/250 Tablet) 2 tablet PO 4X/DAY [facility] Last Admin: 06/18/20 08:56 Dose: 2 tablet Documented by: Cyanocobalamin (Cyanocobalamin 500 Mcg Tablet) 1,000 mcg PO DAILY@0800 [facility] Last Admin: 06/18/20 08:54 Dose: 1,000 mcg Documented by: Dextrose (Dextrose 50%-Water 25 Gm/50 Ml Disp.Syrin) 0 gm IV X1 PRN; Protocol PRN Reason: Hypoglycemia Diltiazem HCl (Diltiazem Cd 180 Mg Capsule) 180 mg PO DAILY [facility] Last Admin: 06/18/20 08:55 Dose: 180 mg Documented by: Famotidine (Famotidine 20 Mg Tablet) 20 mg PO QHS [facility] Last Admin: 06/17/20 21:38 Dose: 20 mg Documented by: Ferrous Sulfate (Ferrous Sulfate 325 Mg Tablet) 325 mg PO TIDCM [facility] Last Admin: 06/18/20 11:11 Dose: 325 mg Documented by: Furosemide (Furosemide 40 Mg Tablet) 40 mg PO BID@1000,1800 [facility] Last Admin: 06/18/20 08:56 Dose: 40 mg Documented by: Gabapentin (Gabapentin 600 Mg Tablet) 600 mg PO BID [facility] Last Admin: 06/18/20 08:55 Dose: 600 mg Documented by: Glucagon (Glucagon 1 Mg/Ml Syringe) 1 mg IM .X1 PRN PRN Reason: Hypoglycemia Guaifenesin (Guaifenesin 10 Ml Udc (200mg/10ml)) 10 ml PO Q4H PRN PRN PRN Reason: COUGH Sodium Chloride () 1,000 mls @ 150 mls/hr IV .Q6H40M [facility] Last Admin: 06/18/20 11:09 Dose: 75 mls/hr Documented by: Sodium Chloride () 250 mls @ 15 mls/hr IV .[id number] PRN PRN Reason: Saline Flush Sodium Chloride () 250 mls @ 15 mls/hr IV .[id number] PRN PRN Reason: Additional IVPB Infusion Isosorbide Mononitrate (Isosorbide Mononitrate 60 Mg Tablet) 30 mg PO DAILY [facility] Last Admin: 06/18/20 08:57 Dose: 30 mg Documented by: Levothyroxine Sodium (Levothyroxine 175 Mcg Tablet) 175 mcg PO DAILY@0600 [facility] Last Admin: 06/18/20 05:31 Dose: 175 mcg Documented by: Lidocaine (Lidocaine 5% Patch) 1 patch TOPICAL DAILY [facility]; Protocol Last Admin: 06/18/20 11:09 Dose: 1 patch Documented by: Lisinopril (Lisinopril 5 Mg Tablet) 5 mg PO DAILY [facility] Last Admin: 06/18/20 08:57 Dose: 5 mg Documented by: Magnesium Hydroxide (Magnesium Hydroxide 30 Ml Udc) 30 ml PO DAILY PRN PRN PRN Reason: Constipation Nutritional Formula (Lactose Free) (Ensure Clear 120 Ml Liquid) 120 ml PO 4X/DAY [facility] Last Admin: 06/18/20 08:54 Dose: 120 ml Documented by: Pantoprazole Sodium (Pantoprazole Sodium 40 Mg Tablet) 40 mg PO BID [facility] Last Admin: 06/18/20 08:56 Dose: 40 mg Documented by: Senna/Docusate Sodium (Senna/Docusate Sodium 1 Tablet) 1 tablet PO BID PRN PRN PRN Reason: Constipation Sertraline HCl (Sertraline 50 Mg Tablet) 150 mg PO DAILY [facility] Last Admin: 06/18/20 11:11 Dose: 150 mg Documented by: Sodium Chloride (0.9% Saline Lock 10 Ml Syringe) 10 - 40 ml IV UD PRN PRN Reason: SALINE FLUSH Tamsulosin HCl (Tamsulosin Hcl 0.4 Mg Capsule) 0.4 mg PO DAILY@1730 [facility] Medical Necessity - Tobacco Use Smoking Status: Former smoker Assessment/Plan All Active Problems (Last Reviewed 06/17/20 @ 19:[address] Randall Garcia, DO) Vomiting (Acute) Hypokalemia (Acute) Nausea & vomiting (Acute) Acute on chronic anemia (Acute) Acute kidney injury (Acute) 1. Intractable nausea and vomiting, abdominal x-ray this morning was normal Likely medication related Patient has not had a single episode of vomiting since being admitted He is on a clear liquid diet. Was able to tolerate Jell-O in front of me. He will be resumed on a carb controlled diet and monitor I would also discontinue metformin could potentially be a culprit 2. Hypokalemia/hypomagnesemia, replaced, recheck in a.m. 3. Recent Acute metabolic encephalopathy, multifactorial secondary to recurrent hypoglycemia, hypoxia, resolved Patient is alert oriented x3. 4. Recent recurrent hypoglycemia, HbA1c 6.2, blood sugars appear to be stable now We will discontinue metformin and Lantus as patient is at goal HbA1c less than 8 Continue blood glucose checks with insulin sliding scale Patient may not need any medications at discharge. HbA1c may just need to be rechecked in 6 weeks. 5. Recent ninth, 10th and 11th rib fractures from mechanical fall, Patient still complains of severe pain, would give a trial of Lidoderm patch continue to encourage incentive spirometer 6. CAD status post CABG/history of CVA/paroxysmal atrial fibrillation/hypothyroidism, all remain stable Continue on atorvastatin, Cardizem, Imdur, lisinopril, Synthroid 7. GERD on PPI 8. Parkinson's disease, continue on Sinemet and entacapone 9. Anxiety/depression, continue on Wellbutrin, Zoloft and gabapentin 11. DVT prophylaxis with Lovenox subcu Inpatient E&M: 86326 Subs Hosp L2
[2020-06-18] MEDS: Magnesium Sulfate 4gm/100mL 4 GM/100 ML IV.SOLN. IV (16:08)
[2020-06-18 17:25] LABS: Bedside Glucose 164 mg/dL (70-110)
[2020-06-18] MEDS: Tamsulosin HCl 0.4 MG Capsule PO (17:25)
[2020-06-18] MEDS: Atorvastatin Calcium 20 MG Tablet PO (21:05)
[2020-06-18] MEDS: Famotidine 20 MG Tablet PO (21:06)
[2020-06-18] MEDS: Insulin Lispro 100 UNIT/ML INSULN.PEN SC (21:14)
[2020-06-19 02:30] VITALS: BP 130/56; PULSE 70; RESP 18; TEMP 36.4; O2SAT 96
[2020-06-19 03:06] LABS: Bedside Glucose 177 mg/dL (70-110)
[2020-06-19] MEDS: Levothyroxine 175 MCG Tablet PO (06:15)
[2020-06-19] MEDS: Enoxaparin 40 MG/0.4 ML Syringe SC (06:15)
[2020-06-19 06:30] LABS: Bedside Glucose 147 mg/dL (70-110)
[2020-06-19 07:01] LABS: Absolute Lymphocyte Count 0.38 X10^3/uL (0.83-4.51); Absolute Neutrophil Count 5.4 X10^3/uL (2.0-7.7); Basophil# 0.01 X10^3/uL; Basophil% 0.1 % (0-1); Eosinophil# 0.24 X10^3/uL; Eosinophils% 3.5 % (0-5); Hematocrit 28.9 % (40-54); Hemoglobin 8.9 g/dL (13.0-16.5); Lymphocyte # 0.38 X10^3/ul (4.0); Lymphocyte % 5.6 % (19-41); Mean Corp Hgb Conc 30.8 g/dL (32-36); Mean Corpuscular Hgb 27.8 pg (27.0-32.0); Mean Corpuscular Volume 90.3 fL (80-94); Mean Platelet Vol. 8.1 fl (6.2-12.0); Monocyte# 0.73 X10^3/uL; Monocyte% 10.7 % (0-10); NRBC Flagged by Analyzer 0 % (0-5); Neutrophil # 5.44 X10^3/uL (2.7-7.7); Neutrophil % 79.5 % (47-70); POSITIVE DIFFERENTIAL YES; Platelet Count 330 K/mm3 (150-450); RBC Distribution Width CV 17.2 % (11.6-14.6); RBC Distribution Width SD 56.9 fl (35.1-43.9); White Blood Count 6.8 K/mm3 (4.4-11.0)
[2020-06-19 07:08] LABS: Differential Indicated SCAN CRITERIA MET
[2020-06-19 07:34] LABS: ALB/GLOB Ratio 0.8 RATIO (0.9-2.4); AST(SGOT) 9 U/L (15-37); Alanine Aminotransfer ALT/SGPT 9 U/L (16-61); Albumin, Serum 2.7 g/dL (3.2-5.0); Alkaline Phosphatase 137 U/L (45-117); Anion Gap 7 (5-15); BUN 12 mg/dL (7-18); BUN/Creat Ratio 17.9 RATIO (10-20); Calcium,Total 7.9 mg/dL (8.5-10.1); Chloride 101 mmol/L (98-107); Creatinine, Serum 0.67 mg/dL (0.70-1.30); EST Glomerular Filtration Rate 122 mL/min (>60); Est Glom Filt Rate - Afr Amer 148 mL/min (>60); Estimated Creatinine Clearance 52.62 ml/min; Globulin 3.4 g/dL (2.2-4.2); Glucose 149 mg/dL (74-106); Magnesium 1.9 mg/dL (1.6-2.6); Potassium 2.8 mmol/L (3.5-5.1); Protein, Total 6.1 g/dL (6.4-8.2); Sodium Level 136 mmol/L (136-145)
[2020-06-19 07:41] LABS: Hypochromasia 2+; Ovalocyte RARE; Platelet Estimate ADEQUATE (ADEQ); Schistocytes RARE
[2020-06-19] MEDS: Cyanocobalamin 500 MCG Tablet 1000 MCG PO (07:44)
[2020-06-19] MEDS: Ascorbic Acid 500 MG Tablet PO (07:44)
[2020-06-19] MEDS: Ferrous Sulfate 325 MG Tablet PO ×3 (07:44→17:49)
[2020-06-19] MEDS: Aspirin 325 MG Tablet PO (07:44)
[2020-06-19] MEDS: buPROPion (SR) 150 MG Tablet.SA PO (07:45)
[2020-06-19] MEDS: Calcium Carb/Vitamin D 1 TABLET Tablet PO (07:45)
[2020-06-19] MEDS: Sertraline 50 MG Tablet 150 MG PO (07:45)
[2020-06-19] MEDS: Gabapentin 600 MG Tablet PO ×2 (07:46→21:37)
[2020-06-19 10:24] VITALS: BP 141/60; PULSE 76; RESP 18; TEMP 36.6; O2SAT 100
[2020-06-19] MEDS: Isosorbide Mononitrate 60 MG Tablet 30 MG PO (10:26)
[2020-06-19] MEDS: dilTIAZem CD 180 MG Capsule PO (10:26)
[2020-06-19] MEDS: Carbidopa/Levodopa 25/250 Tablet PO ×4 (10:26→21:38)
[2020-06-19] MEDS: Lisinopril 5 MG Tablet PO (10:26)
[2020-06-19] MEDS: Lidocaine 5% Patch 1 PATCH TOPICAL (10:29)
[2020-06-19] MEDS: Ensure Clear 120 ML Liquid PO ×3 (10:29→21:52)
[2020-06-19] MEDS: Pantoprazole Sodium 40 MG Tablet PO ×2 (10:30→21:38)
[2020-06-19] MEDS: Potassium Chloride 10mEq/100mL 10 MEQ/100 ML IV.SOLN. 100 MEQ IV BOLUS ×4 (10:30→14:07)
[2020-06-19] MEDS: Furosemide 40 MG Tablet PO ×2 (10:30→17:49)
[2020-06-19] MEDS: Insulin Lispro 100 UNIT/ML INSULN.PEN SC ×3 (11:22→21:36)
--- NOTE | 2020-06-19 11:27 | NURSING ---
Blood sugar taken and insulin given before lunch. Pleasant mood. States no nausea today and feels 100% better today. Denies pain. Will continue to monitor.
[2020-06-19 11:35] LABS: Bedside Glucose 163 mg/dL (70-110)
--- NOTE | 2020-06-19 15:09 | PCM.PN.HOSP ---
Patient Problems: Active and Suspected Problems (Last Reviewed 06/17/20 @ 19:[address] Randall Garcia, DO) Vomiting (Acute) Hypokalemia (Acute) Nausea & vomiting (Acute) Acute on chronic anemia (Acute) Acute kidney injury (Acute) Subjective: Patient seen and examined. He felt well and had no complaints today. Review of symptoms otherwise negative. He has remained hemodynamically stable. Potassium noted to be low at 2.8. Vitals/I&O's: Vital Signs Temp Pulse Resp BP Pulse Ox 97.9 F 76 18 141/60 H 100 06/19/20 10:24 06/19/20 10:24 06/19/20 10:24 06/19/20 10:24 06/19/20 10:24 Oxygen Delivery Method Room Air Weight: 142 lb 13.753 oz Body Mass Index (BMI) 23.3 Finger Stick Blood Glucose 151 Intake and Output for Last 24 Hours 06/17/20 06/18/20 06/19/20 23:59 23:59 23:59 Intake Total 755.83 / 1005.83 4120.00 / 4360.00 4532 / 4532 Output Total 850 / 1750 1800 / 1800 Balance 755.83 / 805.83 3270.00 / 2610.00 2732 / 2732 General: Alert, Oriented x3, Cooperative, No apparent distress HEENT: Atraumatic, PERRLA, EOMI, Normocephalic Oral: Moist Mucosa Neck: Supple, No JVD, Negative Carotid Bruits Lungs: Clear to auscultation, Normal air movement, No rhonchi, No wheeze, No rales Cardiovascular: Regular rate, Regular Rhythm, Normal S1, Normal S2, No murmurs Abdomen: Bowel Sounds Present, Soft, Non Tender, Non-Distended, No Hepato-splenomegaly Extremities: No clubbing, No cyanosis, No edema, Capillary Refill Less than 3 Seconds Skin: No rashes, No breakdown Musculoskeletal: No Tenderness to Palpation of Joints or Extremities Lymphatic: No Cervical, Supraclavicular, or Inguinal Adenopathy Neurological: Cranial nerves II-XII grossly intact, Neuro grossly intact, Motor Exam 5/5 strength throughout Psych/Mental Status: Normal Affect, Appropriate, Alert and oriented to time, place, person, mood and affect Laboratory Results 06/18/20 17:21: POC Glucose 164 H 06/18/20 21:13: POC Glucose 177 H 06/19/20 06:25: POC Glucose 147 H 06/19/20 06:50: WBC 6.8, RBC 3.20 L, Hgb 8.9 L, Hct 28.9 L, MCV 90.3 D, MCH 27.8, MCHC 30.8 L D, RDW Std Deviation 56.9 H, RDW Coeff of Mat 17.2 H, Plt Count 330, MPV 8.1, Immature Gran % (Auto) 0.600, Neut % (Auto) 79.5 H, Lymph % (Auto) 5.6 L, [place] % (Auto) 10.7 H, Eos % (Auto) 3.5, Baso % (Auto) 0.1, Absolute Neuts (auto) 5.4, Absolute Lymphs (auto) 0.38 L, Nucleated RBC % 0, Platelet Estimate ADEQUATE, Hypochromasia 2+, Ovalocytes RARE, Schistocytes RARE 06/19/20 06:50: Sodium 136, Potassium 2.8 L, Chloride 101, Carbon Dioxide 28.0, Anion Gap 7, BUN 12, Creatinine 0.67 L, Estim Creat Clear Calc 52.62, Est GFR (MDRD) Af Amer 148, Est GFR (MDRD) Non-Af 122, BUN/Creatinine Ratio 17.9, Glucose 149 H, Calcium 7.9 L, Magnesium 1.9, Total Bilirubin 0.50, AST 9 L, ALT 9 L, Alkaline Phosphatase 137 H, Total Protein 6.1 L, Albumin 2.7 L, Globulin 3.4, Albumin/Globulin Ratio 0.8 L 06/19/20 11:22: POC Glucose 163 H Diagnostic Data Abdomen X-Ray 06/18/20 08:40 IMPRESSION: Normal x-ray examination of the abdomen and pelvis. Electronically Signed: Edmond Lazcano MD at 9:21 EDT Tel , Service support , Current Medications Acetaminophen (Acetaminophen 325 Mg Tablet) 650 mg PO Q6H PRN PRN PRN Reason: Pain Score 1-10/Temp > 100.7 F Acetaminophen (Acetaminophen 650 Mg Suppository) 650 mg RECTAL Q4H PRN PRN PRN Reason: Pain Score 1-10/Temp > 100.7 F Albuterol Sulfate (Albuterol 2.5 Mg/3 Ml Vial.Neb.) 2.5 mg INHALATION Q2H PRN PRN PRN Reason: SOB &/OR WHEEZING Ascorbic Acid (Ascorbic Acid 500 Mg Tablet) 500 mg PO DAILY [facility] Last Admin: 06/19/20 07:44 Dose: 500 mg Documented by: Aspirin (Aspirin 325 Mg Tablet) 325 mg PO DAILYCM [facility] Last Admin: 06/19/20 07:44 Dose: 325 mg Documented by: Atorvastatin Calcium (Atorvastatin Calcium 20 Mg Tablet) 20 mg PO QHS [facility] Last Admin: 06/18/20 21:05 Dose: 20 mg Documented by: Bisacodyl (Bisacodyl 10 Mg Suppository) 10 mg RECTAL DAILY PRN PRN PRN Reason: Constipation Bupropion HCl (Bupropion (Sr) 150 Mg Tablet.Sa) 150 mg PO DAILY [facility] Last Admin: 06/19/20 07:45 Dose: 150 mg Documented by: Calcium/Vitamin D (Calcium Carb/Vitamin D 1 Tablet Tablet) 1 tablet PO DAILY [facility] Last Admin: 06/19/20 07:45 Dose: 1 tablet Documented by: Carbidopa/Levodopa (Carbidopa/Levodopa 25/250 Tablet) 2 tablet PO 4X/DAY [facility] Last Admin: 06/19/20 14:01 Dose: 2 tablet Documented by: Cyanocobalamin (Cyanocobalamin 500 Mcg Tablet) 1,000 mcg PO DAILY@0800 [facility] Last Admin: 06/19/20 07:44 Dose: 1,000 mcg Documented by: Dextrose (Dextrose 50%-Water 25 Gm/50 Ml Disp.Syrin) 0 gm IV X1 PRN; Protocol PRN Reason: Hypoglycemia Diltiazem HCl (Diltiazem Cd 180 Mg Capsule) 180 mg PO DAILY [facility] Last Admin: 06/19/20 10:26 Dose: 180 mg Documented by: Enoxaparin Sodium (Enoxaparin 40 Mg/0.4 Ml Syringe) 40 mg SC DAILY@0600 [facility] Last Admin: 06/19/20 06:15 Dose: 40 mg Documented by: Entacapone (Entacapone 200 Mg Tablet) 200 mg PO 4X/DAY [facility] Last Admin: 06/19/20 14:02 Dose: 200 mg Documented by: Famotidine (Famotidine 20 Mg Tablet) 20 mg PO QHS [facility] Last Admin: 06/18/20 21:06 Dose: 20 mg Documented by: Ferrous Sulfate (Ferrous Sulfate 325 Mg Tablet) 325 mg PO TIDCM [facility] Last Admin: 06/19/20 11:40 Dose: 325 mg Documented by: Furosemide (Furosemide 40 Mg Tablet) 40 mg PO BID@1000,1800 [facility] Last Admin: 06/19/20 10:30 Dose: 40 mg Documented by: Gabapentin (Gabapentin 600 Mg Tablet) 600 mg PO BID [facility] Last Admin: 06/19/20 07:46 Dose: 600 mg Documented by: Glucagon (Glucagon 1 Mg/Ml Syringe) 1 mg IM .X1 PRN PRN Reason: Hypoglycemia Guaifenesin (Guaifenesin 10 Ml Udc (200mg/10ml)) 10 ml PO Q4H PRN PRN PRN Reason: COUGH Sodium Chloride () 250 mls @ 15 mls/hr IV .[id number] PRN PRN Reason: Saline Flush Sodium Chloride () 250 mls @ 15 mls/hr IV .[id number] PRN PRN Reason: Additional IVPB Infusion Insulin Human Lispro (Insulin Lispro 100 Unit/Ml Insuln.Pen) 0 unit SC ACHS [facility]; Protocol Last Admin: 06/19/20 11:22 Dose: 1 u Documented by: Isosorbide Mononitrate (Isosorbide Mononitrate 60 Mg Tablet) 30 mg PO DAILY [facility] Last Admin: 06/19/20 10:26 Dose: 30 mg Documented by: Levothyroxine Sodium (Levothyroxine 175 Mcg Tablet) 175 mcg PO DAILY@0600 [facility] Last Admin: 06/19/20 06:15 Dose: 175 mcg Documented by: Lidocaine (Lidocaine 5% Patch) 1 patch TOPICAL DAILY [facility]; Protocol Last Admin: 06/19/20 10:29 Dose: 1 patch Documented by: Lisinopril (Lisinopril 5 Mg Tablet) 5 mg PO DAILY [facility] Last Admin: 06/19/20 10:26 Dose: 5 mg Documented by: Magnesium Hydroxide (Magnesium Hydroxide 30 Ml Udc) 30 ml PO DAILY PRN PRN PRN Reason: Constipation Nutritional Formula (Lactose Free) (Ensure Clear 120 Ml Liquid) 120 ml PO 4X/DAY [facility] Last Admin: 06/19/20 14:02 Dose: Not Given Documented by: Pantoprazole Sodium (Pantoprazole Sodium 40 Mg Tablet) 40 mg PO BID [facility] Last Admin: 06/19/20 10:30 Dose: 40 mg Documented by: Senna/Docusate Sodium (Senna/Docusate Sodium 1 Tablet) 1 tablet PO BID PRN PRN PRN Reason: Constipation Sertraline HCl (Sertraline 50 Mg Tablet) 150 mg PO DAILY [facility] Last Admin: 06/19/20 07:45 Dose: 150 mg Documented by: Sodium Chloride (0.9% Saline Lock 10 Ml Syringe) 10 - 40 ml IV UD PRN PRN Reason: SALINE FLUSH Tamsulosin HCl (Tamsulosin Hcl 0.4 Mg Capsule) 0.4 mg PO DAILY@1730 [facility] Last Admin: 06/18/20 17:25 Dose: 0.4 mg Documented by: Medical Necessity - Tobacco Use Smoking Status: Former smoker Assessment/Plan All Active Problems (Last Reviewed 06/17/20 @ 19:[address] Randall Garcia, DO) Vomiting (Acute) Hypokalemia (Acute) Nausea & vomiting (Acute) Acute on chronic anemia (Acute) Acute kidney injury (Acute) # Intractable nausea nad vomiting resolved # Hypokalemia: potassium is 2.8 today. Will replace and monitor # Recurrent hypoglycemia in a known diabetic A1C is 6.2. Metformin adn lantus discontinued accuchecks ACHS ISS. will hold meds upon discharge; to follow up with PCP in ~ 6 weeks for follow up A1C # CAD s/p CABG: on aspirin, statin and imdur as well as lisinopril #Paroxysmal afib: on cardizem # Hypothyroidism: on synthroid # Rib fractures due to mechanical fall: lidoderm patch # GERD: on PPI # Parkinson;s disease: on sinemet and entacapone # Anxiety and depression: on wellbutrin, zoloft and entacapone DVT prophylaxis: lovenox Disposition: for likely DC tomorrow if precert obtained. Inpatient E&M: 19396 Subs Hosp L2
--- NOTE | 2020-06-19 15:17 | CASEMGMT ---
Social Work Note Pt is listed as being from [facility]. JUNE placed a call to Violette at [facility], pt will need COVID test and new pre-cert to return. JUNE then received call from Tj PISANO stating pt's daughter Christel called in and requesting pt admit to [facility] as she works there. JUNE placed a call to [facility] and spoke with Ana Maria in admissions. Ana Maria states she will review referral. [facility] is in network with pt's insurance. JUNE placed a call to pt's daughter Christel and left message that referral has been sent to [facility]. JUNE placed a call to Violette at [facility] to not resubmit for pre-cert. Pt's daughter Renay called in requested update. SW updated Renay that plan is [facility] pending pre-cert. Renay states understanding, agreeable to [facility]. SW explained insurance process. SW updated pt on acceptance to [facility] pending pre-cert. Pt states understanding. 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
[2020-06-19 16:18] VITALS: BP 108/55; PULSE 72; RESP 16; TEMP 36.4; O2SAT 99
--- NOTE | 2020-06-19 16:34 | CASEMGMT ---
JOSE JUAN SALAS Readmission Note: Pt w/co-morbidities including CAD, Paroxysmal Afib, AICD, HLD, aortic valve stenosis, DM type II, CVA, Parkinson's, hypothryoidism, GERD, and HTN. Pt admitted on 06/11 through 06/15 with hypoglycemia resulting in metabolic encephalopathy also with recent 9th, 10th, and 11th rib fx s/p fall, UTI, anemia, and IDALIA. Pt was discharge to the [facility] in [place] on 06/15 under a skilled LOC. Pt returned to the ED on 06/16 with c/o N/V and was discharged back to the [facility]. Pt presented back to the ED on 06/17 with continued c/o N/V despite Reglan which he could not keep down and pt was readmitted with intractable N/V, hypokalemia, and hypomagnesemia. See SW note for discharge plan. Oriana Bonilla RN CM
[2020-06-19 17:35] LABS: Anion Gap 7 (5-15); BUN 15 mg/dL (7-18); BUN/Creat Ratio 17.2 RATIO (10-20); Calcium,Total 8.4 mg/dL (8.5-10.1); Chloride 106 mmol/L (98-107); Creatinine, Serum 0.87 mg/dL (0.70-1.30); EST Glomerular Filtration Rate 91 mL/min (>60); Est Glom Filt Rate - Afr Amer 110 mL/min (>60); Estimated Creatinine Clearance 60.49 ml/min; Glucose 195 mg/dL (74-106); Magnesium 1.9 mg/dL (1.6-2.6); Potassium 3.6 mmol/L (3.5-5.1); Sodium Level 139 mmol/L (136-145)
[2020-06-19] MEDS: Tamsulosin HCl 0.4 MG Capsule PO (17:50)
[2020-06-19] MEDS: Senna/Docusate Sodium 1 Tablet PO (17:54)
[2020-06-19 18:50] LABS: Bedside Glucose 169 mg/dL (70-110)
[2020-06-19 19:05] LABS: Bedside Glucose 221 mg/dL (70-110)
--- NOTE | 2020-06-19 19:20 | NURSING ---
daughter came to desk and stated that her father is having face twitching and slurred speech. vital signs taken and neuro assessment complete. 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 pt did have one time where mouth twitched and pt slurred 2 words. but then was talking fine. notified dr gloria of even and dr gloria stated to watch pt but it is most likely from Parkinson. when i told pt that thinks it may be his Parkinson pt stated that is what he has been told before and he had exercises for this.
[2020-06-19 19:24] VITALS: BP 113/53; PULSE 76; RESP 16; TEMP 35.6; O2SAT 99
[2020-06-19 20:15] VITALS: BP 111/57; PULSE 79; RESP 18; TEMP 36.6; O2SAT 97
[2020-06-19] MEDS: Atorvastatin Calcium 20 MG Tablet PO (21:37)
[2020-06-19] MEDS: Famotidine 20 MG Tablet PO (21:38)
[2020-06-19 22:10] LABS: Bedside Glucose 232 mg/dL (70-110)
[2020-06-20 02:30] VITALS: BP 125/57; PULSE 70; RESP 16; TEMP 36.7; O2SAT 96
[2020-06-20] MEDS: Levothyroxine 175 MCG Tablet PO (05:32)
[2020-06-20] MEDS: Enoxaparin 40 MG/0.4 ML Syringe SC (05:32)
[2020-06-20 05:46] LABS: Bedside Glucose 196 mg/dL (70-110)
[2020-06-20] MEDS: Insulin Lispro 100 UNIT/ML INSULN.PEN SC ×4 (06:55→21:15)
[2020-06-20 07:46] LABS: Absolute Lymphocyte Count 0.56 X10^3/uL (0.83-4.51); Absolute Neutrophil Count 5.7 X10^3/uL (2.0-7.7); Basophil# 0.01 X10^3/uL; Basophil% 0.1 % (0-1); Eosinophil# 0.19 X10^3/uL; Eosinophils% 2.7 % (0-5); Hematocrit 25.4 % (40-54); Lymphocyte # 0.56 X10^3/ul (4.0); Lymphocyte % 7.9 % (19-41); Mean Corp Hgb Conc 31.5 g/dL (32-36); Mean Corpuscular Hgb 27.9 pg (27.0-32.0); Mean Corpuscular Volume 88.5 fL (80-94); Monocyte# 0.62 X10^3/uL; Monocyte% 8.7 % (0-10); NRBC Flagged by Analyzer 0 % (0-5); Neutrophil # 5.69 X10^3/uL (2.7-7.7); Neutrophil % 80.2 % (47-70); POSITIVE DIFFERENTIAL YES; Platelet Count 288 K/mm3 (150-450); RBC Distribution Width CV 16.6 % (11.6-14.6); Red Blood Count 2.87 M/mm3 (4.6-6.2); White Blood Count 7.1 K/mm3 (4.4-11.0)
[2020-06-20 07:50] LABS: Differential Indicated SCAN CRITERIA MET
[2020-06-20 08:04] LABS: Anion Gap 5 (5-15); BUN 16 mg/dL (7-18); BUN/Creat Ratio 24.1 RATIO (10-20); Calcium,Total 7.9 mg/dL (8.5-10.1); Chloride 104 mmol/L (98-107); Creatinine, Serum 0.66 mg/dL (0.70-1.30); EST Glomerular Filtration Rate 124 mL/min (>60); Est Glom Filt Rate - Afr Amer 150 mL/min (>60); Estimated Creatinine Clearance 52.62 ml/min; Glucose 163 mg/dL (74-106); Magnesium 1.6 mg/dL (1.6-2.6); Potassium 3.1 mmol/L (3.5-5.1); Sodium Level 137 mmol/L (136-145)
[2020-06-20 08:13] VITALS: BP 138/66; PULSE 75; RESP 16; TEMP 36.4; O2SAT 99
[2020-06-20] MEDS: buPROPion (SR) 150 MG Tablet.SA PO (08:24)
[2020-06-20] MEDS: Calcium Carb/Vitamin D 1 TABLET Tablet PO (08:24)
[2020-06-20] MEDS: Sertraline 50 MG Tablet 150 MG PO (08:24)
[2020-06-20] MEDS: Pantoprazole Sodium 40 MG Tablet PO ×2 (08:25→21:15)
[2020-06-20] MEDS: Ascorbic Acid 500 MG Tablet PO (08:25)
[2020-06-20] MEDS: Ferrous Sulfate 325 MG Tablet PO ×3 (08:25→16:38)
[2020-06-20] MEDS: Cyanocobalamin 500 MCG Tablet 1000 MCG PO (08:25)
[2020-06-20] MEDS: Aspirin 325 MG Tablet PO (08:25)
[2020-06-20] MEDS: Gabapentin 600 MG Tablet PO ×2 (08:26→21:15)
[2020-06-20] MEDS: Isosorbide Mononitrate 60 MG Tablet 30 MG PO (08:26)
[2020-06-20 09:52] VITALS: PULSE 80
[2020-06-20] MEDS: Lidocaine 5% Patch 1 PATCH TOPICAL (10:00)
[2020-06-20] MEDS: Furosemide 40 MG Tablet PO ×2 (10:01→18:02)
[2020-06-20] MEDS: dilTIAZem CD 180 MG Capsule PO (10:01)
[2020-06-20] MEDS: Lisinopril 5 MG Tablet PO (10:01)
[2020-06-20] MEDS: Carbidopa/Levodopa 25/250 Tablet PO ×4 (10:02→21:16)
[2020-06-20 11:05] LABS: Bedside Glucose 174 mg/dL (70-110)
[2020-06-20 11:10] LABS: Bedside Glucose 218 mg/dL (70-110)
[2020-06-20 14:13] VITALS: BP 94/52; PULSE 104; RESP 18; TEMP 36.4; O2SAT 99
--- NOTE | 2020-06-20 14:28 | CASEMGMT ---
JOSE JUAN CM in to discuss [facility]. Patient wishes to stay at [facility]. [facility] with [facility]. Patient had no further questions or concerns at this time.
--- NOTE | 2020-06-20 15:16 | PN_ITS ---
Patient Problems: Active and Suspected Problems (Last Reviewed 06/17/20 @ 19:[address] Randall Garcia, DO) Vomiting (Acute) Hypokalemia (Acute) Nausea & vomiting (Acute) Acute on chronic anemia (Acute) Acute kidney injury (Acute) Subjective: Patient seen and examined. He had no complaints this morning. Review of systems otherwise negative. Yesterday, he apparently had a few twitches of his UEs which daughter was concerned could be due to a seizure; however, there were no overt signs of a seizure, and patient was conscioous throughout; Patient thought it was likely due to his Parkinson's, which sounded plausible. Symptoms haven't recurred overnight. Patient tells me he wants to go home, instead of to a fci. Vitals/I&O's: Vital Signs Temp Pulse Resp BP Pulse Ox 97.5 F L 104 H 18 94/52 L 99 06/20/20 14:13 06/20/20 14:13 06/20/20 14:13 06/20/20 14:13 06/20/20 14:13 Oxygen Delivery Method Room Air Weight: 144 lb 6.444 oz Body Mass Index (BMI) 23.3 Finger Stick Blood Glucose 151 Intake and Output for Last 24 Hours 06/18/20 06/19/20 06/20/20 23:59 23:59 23:59 Intake Total 4120.00 / 4360.00 5224 / 5224 150 / 150 Output Total 850 / 1750 2100 / 2100 Balance 3270.00 / 2610.00 3124 / 3124 150 / 150 General: Alert, Oriented x3, Cooperative, No apparent distress HEENT: Atraumatic, PERRLA, EOMI, Normocephalic Oral: Moist Mucosa Neck: Supple, No JVD, Negative Carotid Bruits Lungs: Clear to auscultation, Normal air movement, No rhonchi, No wheeze, No rales Cardiovascular: Regular rate, Regular Rhythm, Normal S1, Normal S2, No murmurs Abdomen: Bowel Sounds Present, Soft, Non Tender, Non-Distended, No Hepato- splenomegaly Extremities: No clubbing, No cyanosis, No edema, Capillary Refill Less than 3 Seconds Skin: No rashes, No breakdown Musculoskeletal: No Tenderness to Palpation of Joints or Extremities Lymphatic: No Cervical, Supraclavicular, or Inguinal Adenopathy Neurological: Cranial nerves II-XII grossly intact, Neuro grossly intact, Motor Exam 5/5 strength throughout Psych/Mental Status: Normal Affect, Appropriate, Alert and oriented to time, place, person, mood and affect Laboratory Results 06/19/20 16:43: Sodium 139, Potassium 3.6, Chloride 106, Carbon Dioxide 26.0, Anion Gap 7, BUN 15, Creatinine 0.87, Estim Creat Clear Calc 60.49, Est GFR (MDRD) Af Amer 110, Est GFR (MDRD) Non-Af 91, BUN/Creatinine Ratio 17.2, Glucose 195 H, Calcium 8.4 L, Magnesium 1.9 06/19/20 17:43: POC Glucose 169 H 06/19/20 19:03: POC Glucose 221 H 06/19/20 21:36: POC Glucose 232 H 06/20/20 05:28: POC Glucose 196 H 06/20/20 06:53: POC Glucose 174 H 06/20/20 07:35: WBC 7.1, RBC 2.87 L, Hgb 8.0 L, Hct 25.4 L, MCV 88.5, MCH 27.9, MCHC 31.5 L, RDW Std Deviation 54.0 H, RDW Coeff of Mat 16.6 H, Plt Count 288, MPV 8.0, Immature Gran % (Auto) 0.400, Neut % (Auto) 80.2 H, Lymph % (Auto) 7.9 L, [place] % (Auto) 8.7, Eos % (Auto) 2.7, Baso % (Auto) 0.1, Absolute Neuts (auto) 5.7, Absolute Lymphs (auto) 0.56 L, Nucleated RBC % 0, Differential Comment COMMENT 06/20/20 07:35: Sodium 137, Potassium 3.1 L, Chloride 104, Carbon Dioxide 28.0, Anion Gap 5, BUN 16, Creatinine 0.66 L, Estim Creat Clear Calc 52.62, Est GFR (MDRD) Af Amer 150, Est GFR (MDRD) Non-Af 124, BUN/Creatinine Ratio 24.1 H, Glucose 163 H, Calcium 7.9 L, Magnesium 1.6 06/20/20 11:05: POC Glucose 218 H Diagnostic Data Abdomen X-Ray 06/18/20 08:40 IMPRESSION: Normal x-ray examination of the abdomen and pelvis. Electronically Signed: Edmond Lazcano MD at 9:21 EDT Tel , Service support , Current Medications Acetaminophen (Acetaminophen 325 Mg Tablet) 650 mg PO Q6H PRN PRN PRN Reason: Pain Score 1-10/Temp > 100.7 F Acetaminophen (Acetaminophen 650 Mg Suppository) 650 mg RECTAL Q4H PRN PRN PRN Reason: Pain Score 1-10/Temp > 100.7 F Albuterol Sulfate (Albuterol 2.5 Mg/3 Ml Vial.Neb.) 2.5 mg INHALATION Q2H PRN PRN PRN Reason: SOB &/OR WHEEZING Ascorbic Acid (Ascorbic Acid 500 Mg Tablet) 500 mg PO DAILY [facility] [place] Last Admin: 06/20/20 08:25 Dose: 500 mg Documented by: Aspirin (Aspirin 325 Mg Tablet) 325 mg PO DAILYCM [facility] Last Admin: 06/20/20 08:25 Dose: 325 mg Documented by: Atorvastatin Calcium (Atorvastatin Calcium 20 Mg Tablet) 20 mg PO QHS [facility] [place] Last Admin: 06/19/20 21:37 Dose: 20 mg Documented by: Bisacodyl (Bisacodyl 10 Mg Suppository) 10 mg RECTAL DAILY PRN PRN PRN Reason: Constipation Bupropion HCl (Bupropion (Sr) 150 Mg Tablet.Sa) 150 mg PO DAILY [facility] [place] Last Admin: 06/20/20 08:24 Dose: 150 mg Documented by: Calcium/Vitamin D (Calcium Carb/Vitamin D 1 Tablet Tablet) 1 tablet PO DAILY [facility] [place] Last Admin: 06/20/20 08:24 Dose: 1 tablet Documented by: Carbidopa/Levodopa (Carbidopa/Levodopa 25/250 Tablet) 2 tablet PO 4X/DAY [facility] [place] Last Admin: 06/20/20 14:16 Dose: 2 tablet Documented by: Cyanocobalamin (Cyanocobalamin 500 Mcg Tablet) 1,000 mcg PO DAILY@0800 [facility] [place] Last Admin: 06/20/20 08:25 Dose: 1,000 mcg Documented by: Dextrose (Dextrose 50%-Water 25 Gm/50 Ml Disp.Syrin) 0 gm IV X1 PRN; Protocol PRN Reason: Hypoglycemia Diltiazem HCl (Diltiazem Cd 180 Mg Capsule) 180 mg PO DAILY [facility] [place] Last Admin: 06/20/20 10:01 Dose: 180 mg Documented by: Enoxaparin Sodium (Enoxaparin 40 Mg/0.4 Ml Syringe) 40 mg SC DAILY@0600 [facility] [place] Last Admin: 06/20/20 05:32 Dose: 40 mg Documented by: Entacapone (Entacapone 200 Mg Tablet) 200 mg PO 4X/DAY [facility] [place] Last Admin: 06/20/20 14:15 Dose: 200 mg Documented by: Famotidine (Famotidine 20 Mg Tablet) 20 mg PO QHS [facility] [place] Last Admin: 06/19/20 21:38 Dose: 20 mg Documented by: Ferrous Sulfate (Ferrous Sulfate 325 Mg Tablet) 325 mg PO TIDCM [facility] [place] Last Admin: 06/20/20 11:09 Dose: 325 mg Documented by: Furosemide (Furosemide 40 Mg Tablet) 40 mg PO BID@1000,1800 [facility] [place] Last Admin: 06/20/20 10:01 Dose: 40 mg Documented by: Gabapentin (Gabapentin 600 Mg Tablet) 600 mg PO BID [facility] [place] Last Admin: 06/20/20 08:26 Dose: 600 mg Documented by: Glucagon (Glucagon 1 Mg/Ml Syringe) 1 mg IM .X1 PRN PRN Reason: Hypoglycemia Guaifenesin (Guaifenesin 10 Ml Udc (200mg/10ml)) 10 ml PO Q4H PRN PRN PRN Reason: COUGH Sodium Chloride () 250 mls @ 15 mls/hr IV .[id number] PRN PRN Reason: Saline Flush Sodium Chloride () 250 mls @ 15 mls/hr IV .[id number] PRN PRN Reason: Additional IVPB Infusion Insulin Human Lispro (Insulin Lispro 100 Unit/Ml Insuln.Pen) 0 unit SC ACHS [facility] [place]; Protocol Last Admin: 06/20/20 11:09 Dose: 1 u Documented by: Isosorbide Mononitrate (Isosorbide Mononitrate 60 Mg Tablet) 30 mg PO DAILY [facility] [place] Last Admin: 06/20/20 08:26 Dose: 30 mg Documented by: Levothyroxine Sodium (Levothyroxine 175 Mcg Tablet) 175 mcg PO DAILY@0600 [facility] [place] Last Admin: 06/20/20 05:32 Dose: 175 mcg Documented by: Lidocaine (Lidocaine 5% Patch) 1 patch TOPICAL DAILY [facility] [place]; Protocol Last Admin: 06/20/20 10:00 Dose: 1 patch Documented by: Lisinopril (Lisinopril 5 Mg Tablet) 5 mg PO DAILY [facility] [place] Last Admin: 06/20/20 10:01 Dose: 5 mg Documented by: Magnesium Hydroxide (Magnesium Hydroxide 30 Ml Udc) 30 ml PO DAILY PRN PRN PRN Reason: Constipation Nutritional Formula (Lactose Free) (Ensure Clear 120 Ml Liquid) 120 ml PO 4X/DAY [facility] [place] Last Admin: 06/20/20 14:16 Dose: Not Given Documented by: Pantoprazole Sodium (Pantoprazole Sodium 40 Mg Tablet) 40 mg PO BID [facility] [place] Last Admin: 06/20/20 08:25 Dose: 40 mg Documented by: Senna/Docusate Sodium (Senna/Docusate Sodium 1 Tablet) 1 tablet PO BID PRN PRN PRN Reason: Constipation Last Admin: 06/19/20 17:54 Dose: 1 tablet Documented by: Sertraline HCl (Sertraline 50 Mg Tablet) 150 mg PO DAILY [facility] [place] Last Admin: 06/20/20 08:24 Dose: 150 mg Documented by: Sodium Chloride (0.9% Saline Lock 10 Ml Syringe) 10 - 40 ml IV UD PRN PRN Reason: SALINE FLUSH Tamsulosin HCl (Tamsulosin Hcl 0.4 Mg Capsule) 0.4 mg PO DAILY@1730 [facility] [place] Last Admin: 06/19/20 17:50 Dose: 0.4 mg Documented by: STROKE Vital Signs/Narrative: Vital Signs Temp Pulse Resp BP Pulse Ox 06/20/20 14:13 97.5 F L 104 H 18 94/52 L 99 Medical Necessity - Tobacco Use Smoking Status: Former smoker Assessment/Plan All Active Problems (Last Reviewed 06/17/20 @ 19:[address] Randall Garcia, DO) Vomiting (Acute) Hypokalemia (Acute) Nausea & vomiting (Acute) Acute on chronic anemia (Acute) Acute kidney injury (Acute) # Intractable nausea nad vomiting * resolved * # Hypokalemia: potassium is 3.1 today. Will replace and monitor # Recurrent hypoglycemia in a known diabetic * A1C is 6.2. Metformin and lantus discontinued * accuchecks ACHS * ISS. * will hold meds upon discharge; to follow up with PCP in ~ 6 weeks for follow up A1C * # CAD s/p CABG: on aspirin, statin and imdur as well as lisinopril #Paroxysmal afib: on cardizem # Hypothyroidism: on synthroid # Rib fractures due to mechanical fall: lidoderm patch # GERD: on PPI # Parkinson;s disease: on sinemet and entacapone #Anemia: Hb is 8 today. This is in the range of his baseline of 8-10. Will monitor * # Anxiety and depression: on wellbutrin, zoloft and entacapone DVT prophylaxis: lovenox Disposition: * awaiting precert to SNF. Patient stated today he wanted to be discharged home. however, he finally agreed to go to SNF because of his frailty and the inability of his daughter to fully care for him. Inpatient E&M: [id number] Subs Hosp L2
--- NOTE | 2020-06-20 15:22 | CASEMGMT ---
Addendum entered by Angela Zaragoza 06/20/20 16:08: SW faxed updated clinicals to [facility]. Original Note: Social Work Note SW placed a call to Ana Maria at [facility] and left message regarding referral. SW updated that Ana Mraia states she submitted pre-cert today as [facility] didn't have any beds yesterday. SW in to speak with pt. SW updated pt that insurance authorization is still pending. SW spoke with pt about going to SNF vs home with his daughter Christel. Pt states that he hasn't talked to Christel about him returning home though. SW spoke with pt about how pt only walked 15ft today and benefits of SNF. Pt states that going to [place] wouldn't be so bad if it wasn't for the isolation requirements. Pt states at least his daughter Christel works at [facility] and he would be able to see him while at SNF. Pt states that he is agreeable to going to [facility] for short term SNF placement. SW encouraged pt to speak to his daughter Christel regarding him wanting to return home after his short term stay at [facility]. Pt states understanding. Plan: [facility] pending pre-cert Angela Zaragoza CHAIN HOIST OPERATOR, AUDIT OFFICER
[2020-06-20] MEDS: Tamsulosin HCl 0.4 MG Capsule PO (16:38)
[2020-06-20 17:10] LABS: Bedside Glucose 207 mg/dL (70-110)
[2020-06-20] MEDS: Ensure Clear 120 ML Liquid PO ×2 (18:08→21:26)
[2020-06-20 21:07] VITALS: BP 110/52; PULSE 72; RESP 16; TEMP 36.6; O2SAT 100
[2020-06-20] MEDS: Atorvastatin Calcium 20 MG Tablet PO (21:15)
[2020-06-20] MEDS: Famotidine 20 MG Tablet PO (21:15)
[2020-06-20 21:21] LABS: Bedside Glucose 222 mg/dL (70-110)
[2020-06-21 05:03] VITALS: BP 118/49; PULSE 75; RESP 16; TEMP 36.6; O2SAT 95
[2020-06-21] MEDS: Levothyroxine 175 MCG Tablet PO (05:09)
[2020-06-21] MEDS: Enoxaparin 40 MG/0.4 ML Syringe SC (05:09)
[2020-06-21] MEDS: Insulin Lispro 100 UNIT/ML INSULN.PEN SC ×2 (06:45→11:29)
[2020-06-21 06:56] LABS: Bedside Glucose 185 mg/dL (70-110)
[2020-06-21] MEDS: Carbidopa/Levodopa 25/250 Tablet PO ×2 (09:07→13:29)
[2020-06-21] MEDS: Lisinopril 5 MG Tablet PO (09:07)
[2020-06-21] MEDS: Ascorbic Acid 500 MG Tablet PO (09:07)
[2020-06-21] MEDS: Sertraline 50 MG Tablet 150 MG PO (09:07)
[2020-06-21] MEDS: buPROPion (SR) 150 MG Tablet.SA PO (09:07)
[2020-06-21] MEDS: Gabapentin 600 MG Tablet PO (09:08)
[2020-06-21] MEDS: Cyanocobalamin 500 MCG Tablet 1000 MCG PO (09:08)
[2020-06-21] MEDS: Isosorbide Mononitrate 60 MG Tablet 30 MG PO (09:08)
[2020-06-21] MEDS: Furosemide 40 MG Tablet PO (09:08)
[2020-06-21] MEDS: Pantoprazole Sodium 40 MG Tablet PO (09:08)
[2020-06-21] MEDS: Calcium Carb/Vitamin D 1 TABLET Tablet PO (09:08)
[2020-06-21] MEDS: Aspirin 325 MG Tablet PO (09:09)
[2020-06-21] MEDS: dilTIAZem CD 180 MG Capsule PO (09:09)
[2020-06-21] MEDS: Ferrous Sulfate 325 MG Tablet PO ×2 (09:09→11:30)
[2020-06-21 09:16] VITALS: BP 127/83; PULSE 70; RESP 16; TEMP 36.9; O2SAT 97
[2020-06-21] MEDS: Lidocaine 5% Patch 1 PATCH TOPICAL (10:54)
[2020-06-21] MEDS: Glucerna Shake 120 ML LIQUID PO ×2 (10:55→13:29)
[2020-06-21 11:00] VITALS: PULSE 92
--- NOTE | 2020-06-21 11:52 | PCM.TXEXTCAR ---
- Diet 06/18/20 14:08 Diet: Carbohydrate Controlled Is pt able to select menu?: Yes Diet Comments: please send drinks/liquids in sippy cups - Routine Orders/Code Status Enema Type: Fleetz Enema Frequency: Daily PRN Suppository Type: Dulcolax 10mg Suppository Frequency: Daily PRN Routine Lab Work: CBC, BMP - Wound(s) Right back Wound Type: Abrasion right back of upper arm Wound Type: Abrasion - Therapies Weight Bearing: Weight bearing as tolerated Physical Therapy: Eval and Treat Occupational Therapy: Eval and Treat - Allergies/Procedures Done in Hospital Allergies/Adverse Reactions: Allergies Iodine and Iodide Containing Produc Allergy (Verified 06/16/20 18:43) Shortness of breath simvastatin Adverse Reaction (Verified 06/16/20 18:43) Other - Type of Care/Length of Stay Estimated LOS: Convalescent Care Less Than 30 days Type of Care Needed: Skilled Rehab Potential: Fair Prognosis: Fair - Additional Orders/Day of Discharge Additional Orders: metformin stopped due to hypoglycemia nad normal A1C. To follow up with PCP for repeat A1C check in ~ 6 weeks Day of Discharge: 06/21/20 - Dietary and Speech Recommendations Dietitian Recommendations/Changes: Advance diet as tolerated to regular. Advance ONS from Ensure Clear to Ensure Enlive when PO diet advanced. - Follow Up Care Primary Care Physician: Roselyn Goldberg MD [Primary Care Provider] - Please follow up with your Primary Care Physician in: 1-2 weeks
--- NOTE | 2020-06-21 11:55 | DS.PCM_ITS ---
Discharge Date and Diagnosis - Problem List Patient Problems: Active and Suspected Problems (Last Reviewed 06/17/20 @ 19:[address] Randall Garcia DO) Vomiting (Acute) Hypokalemia (Acute) Nausea & vomiting (Acute) Acute on chronic anemia (Acute) Acute kidney injury (Acute) Date of Admission: 06/17/20 Date of Discharge: 06/21/20 - Primary Discharge Diagnosis Acute Problems: Active Problems (Last Reviewed 06/17/20 @ 19:[address] Randall Garcia DO) Vomiting (Acute) Hypokalemia (Acute) Nausea & vomiting (Acute) Acute on chronic anemia (Acute) Acute kidney injury (Acute) - Secondary Discharge Diagnosis Chronic Problems: Chronic Problems (Last Reviewed 06/17/20 @ 19:[address] Randall Garcia DO) Seizure (Chronic) Parkinsons (Chronic) Implantable cardioverter-defibrillator (ICD) at end of battery life (Chronic) Nonrheumatic aortic (valve) stenosis (Chronic) Paroxysmal atrial fibrillation (Chronic) Essential hypertension (Chronic) Atherosclerotic heart disease of [place] coronary artery without angina pectoris (Chronic) CABG x4- MONTERO to LAD, EPIFANIO to the Distal RCA, Right Radial Artery to the OM branch of CX, and Reverse SVG from the aorta to the Distal RCA 08/17/01 Aortocoronary bypass status (Chronic ~08/17/01) CABG x4- MONTERO to LAD, EPIFANIO to the Distal RCA, Right Radial Artery to the OM branch of CX, and Reverse SVG from the aorta to the Distal RCA 08/17/01 Hyperlipidemia (Chronic) Carotid bruit (Chronic) Long-term use of high-risk medication (Chronic) Paroxysmal ventricular tachycardia (Chronic) Implantable cardioverter-defibrillator (ICD) in situ (Chronic ~10/23/11) Type 2 diabetes mellitus (Chronic) Hospital Course and Treatment Imaging Results: Diagnostic Data Abdomen X-Ray 06/18/20 08:40 IMPRESSION: Normal x-ray examination of the abdomen and pelvis. Electronically Signed: Edmond Lazcano MD at 9:21 EDT Tel , Service support , Operations: None Procedures: None Summary of Care Provided: The patient is a 75 year old M with a past medical history as outlined was admitted via the ED on 06/17/2020 with a complaint of nausea and vomiting for 2 days prior to admission. He had just been discharged on 06/15/2020 from the hospital after he was managed for encephalopathy thought to be due to hypoglycemia and he also had a seizure during that admission. He subsequently came back with nausea and vomiting after he was discharged to his alf. He could not tolerate oral medication. He was therefore admitted and managed for intractable nausea and vomiting as well as hypokalemia. However his nausea vomiting resolved on admission and did not care at all during the admission. Hypokalemia resolved with administration of potassium. Was able to tolerate a clear diet and this was advanced fully to a regular diet which he tolerated well. Patient's family subsequently complained of a few twitches of his upper extremities which his daughter thought could be due to his seizure due to his history of hypoglycemia related seizure. However there were no overt signs of physician patient remained conscious throughout these twitching since that he thought it was due to his Parkinson's disease. Symptoms did not recur again. P atient remained stable and was discharged to his alf on 06/21/2020. He is to follow-up with his primary care doctor within 1 to 2 weeks. Patient seen and examined prior to discharge. He felt well and had no complaints. Review of stems otherwise negative. Labs and vitals reviewed. Home medication reviewed and reconciled. O/E: Vital Signs Temp Pulse Resp BP Pulse Ox 98.1 F 73 16 84/42 L 98 06/21/20 15:07 06/21/20 15:07 06/21/20 15:07 06/21/20 15:07 06/21/20 15:07 [] General: Alert, Oriented x3, Cooperative, No apparent distress HEENT: Atraumatic, PERRLA, EOMI, Normocephalic Oral: Moist Mucosa Neck: Supple, No JVD, Negative Carotid Bruits Lungs: Clear to auscultation, Normal air movement, No rhonchi, No wheeze, No rales Cardiovascular: Regular rate, Regular Rhythm, Normal S1, Normal S2, No murmurs Abdomen: Bowel Sounds Present, Soft, Non Tender, Non-Distended, No Hepato- splenomegaly Extremities: No clubbing, No cyanosis, No edema, Capillary Refill Less than 3 Seconds Skin: No rashes, No breakdown Musculoskeletal: No Tenderness to Palpation of Joints or Extremities Lymphatic: No Cervical, Supraclavicular, or Inguinal Adenopathy Neurological: Cranial nerves II-XII grossly intact, Neuro grossly intact, Motor Exam 5/5 strength throughout Psych/Mental Status: Normal Affect, Appropriate, Alert and oriented to time, place, person, mood and affect Plan is for discharge home today. Patient Problems: Active and Suspected Problems (Last Reviewed 06/17/20 @ 19:[address] Randall Garcia, DO) Vomiting (Acute) Hypokalemia (Acute) Nausea & vomiting (Acute) Acute on chronic anemia (Acute) Acute kidney injury (Acute) - Physical Exam Vitals/I&O's: Vital Signs Temp Pulse Resp BP Pulse Ox 98.5 F 70 16 127/83 H 97 06/21/20 09:16 06/21/20 09:16 06/21/20 09:16 06/21/20 09:16 06/21/20 09:16 Oxygen Delivery Method Room Air Weight: 143 lb 1.28 oz Body Mass Index (BMI) 23.3 Finger Stick Blood Glucose 151 Intake and Output for Last 24 Hours 06/19/20 06/20/20 06/21/20 23:59 23:59 23:59 Intake Total 5224 / 5224 150 / 600 500 / 500 Output Total 2100 / 2100 Balance 3124 / 3124 150 / 600 500 / 500 Laboratory Results 06/20/20 16:24: POC Glucose 207 H 06/20/20 17:35: COVID-19 ([facility]) Not Detected 06/20/20 21:12: POC Glucose 222 H 06/21/20 06:45: POC Glucose 185 H Current Medications Acetaminophen (Acetaminophen 325 Mg Tablet) 650 mg PO Q6H PRN PRN PRN Reason: Pain Score 1-10/Temp > 100.7 F Acetaminophen (Acetaminophen 650 Mg Suppository) 650 mg RECTAL Q4H PRN PRN PRN Reason: Pain Score 1-10/Temp > 100.7 F Albuterol Sulfate (Albuterol 2.5 Mg/3 Ml Vial.Neb.) 2.5 mg INHALATION Q2H PRN PRN PRN Reason: SOB &/OR WHEEZING Ascorbic Acid (Ascorbic Acid 500 Mg Tablet) 500 mg PO DAILY ROBERTO Last Admin: 06/21/20 09:07 Dose: 500 mg Documented by: Aspirin (Aspirin 325 Mg Tablet) 325 mg PO DAILYCM [facility] Last Admin: 06/21/20 09:09 Dose: 325 mg Documented by: Atorvastatin Calcium (Atorvastatin Calcium 20 Mg Tablet) 20 mg PO QHS [facility] Last Admin: 06/20/20 21:15 Dose: 20 mg Documented by: Bisacodyl (Bisacodyl 10 Mg Suppository) 10 mg RECTAL DAILY PRN PRN PRN Reason: Constipation Bupropion HCl (Bupropion (Sr) 150 Mg Tablet.Sa) 150 mg PO DAILY [facility] Last Admin: 06/21/20 09:07 Dose: 150 mg Documented by: Calcium/Vitamin D (Calcium Carb/Vitamin D 1 Tablet Tablet) 1 tablet PO DAILY [facility] Last Admin: 06/21/20 09:08 Dose: 1 tablet Documented by: Carbidopa/Levodopa (Carbidopa/Levodopa 25/250 Tablet) 2 tablet PO 4X/DAY [facility] Last Admin: 06/21/20 09:07 Dose: 2 tablet Documented by: Cyanocobalamin (Cyanocobalamin 500 Mcg Tablet) 1,000 mcg PO DAILY@0800 [facility] Last Admin: 06/21/20 09:08 Dose: 1,000 mcg Documented by: Dextrose (Dextrose 50%-Water 25 Gm/50 Ml Disp.Syrin) 0 gm IV X1 PRN; Protocol PRN Reason: Hypoglycemia Diltiazem HCl (Diltiazem Cd 180 Mg Capsule) 180 mg PO DAILY [facility] Last Admin: 06/21/20 09:09 Dose: 180 mg Documented by: Enoxaparin Sodium (Enoxaparin 40 Mg/0.4 Ml Syringe) 40 mg SC DAILY@0600 [facility] Last Admin: 06/21/20 05:09 Dose: 40 mg Documented by: Entacapone (Entacapone 200 Mg Tablet) 200 mg PO 4X/DAY [facility] Last Admin: 06/21/20 09:08 Dose: 200 mg Documented by: Famotidine (Famotidine 20 Mg Tablet) 20 mg PO QHS [facility] Last Admin: 06/20/20 21:15 Dose: 20 mg Documented by: Ferrous Sulfate (Ferrous Sulfate 325 Mg Tablet) 325 mg PO TIDCM [facility] Last Admin: 06/21/20 11:30 Dose: 325 mg Documented by: Furosemide (Furosemide 40 Mg Tablet) 40 mg PO BID@1000,1800 [facility] Last Admin: 06/21/20 09:08 Dose: 40 mg Documented by: Gabapentin (Gabapentin 600 Mg Tablet) 600 mg PO BID [facility] Last Admin: 06/21/20 09:08 Dose: 600 mg Documented by: Glucagon (Glucagon 1 Mg/Ml Syringe) 1 mg IM .X1 PRN PRN Reason: Hypoglycemia Guaifenesin (Guaifenesin 10 Ml Udc (200mg/10ml)) 10 ml PO Q4H PRN PRN PRN Reason: COUGH Sodium Chloride () 250 mls @ 15 mls/hr IV .[id number] PRN PRN Reason: Saline Flush Sodium Chloride () 250 mls @ 15 mls/hr IV .[id number] PRN PRN Reason: Additional IVPB Infusion Insulin Human Lispro (Insulin Lispro 100 Unit/Ml Insuln.Pen) 0 unit SC ACHS [facility]; Protocol Last Admin: 06/21/20 11:29 Dose: 2 u Documented by: Isosorbide Mononitrate (Isosorbide Mononitrate 30 Mg Tablet) 30 mg PO DAILY [facility] Levothyroxine Sodium (Levothyroxine 175 Mcg Tablet) 175 mcg PO DAILY@0600 [facility] Last Admin: 06/21/20 05:09 Dose: 175 mcg Documented by: Lidocaine (Lidocaine 5% Patch) 1 patch TOPICAL DAILY [facility]; Protocol Last Admin: 06/21/20 10:54 Dose: 1 patch Documented by: Lisinopril (Lisinopril 5 Mg Tablet) 5 mg PO DAILY [facility] Last Admin: 06/21/20 09:07 Dose: 5 mg Documented by: Magnesium Hydroxide (Magnesium Hydroxide 30 Ml Udc) 30 ml PO DAILY PRN PRN PRN Reason: Constipation Nutritional Formula (Lactose Free) (Glucerna Shake 120 Ml Liquid) 120 ml PO 4X/DAY [facility] Last Admin: 06/21/20 10:55 Dose: 120 ml Documented by: Pantoprazole Sodium (Pantoprazole Sodium 40 Mg Tablet) 40 mg PO BID [facility] Last Admin: 06/21/20 09:08 Dose: 40 mg Documented by: Senna/Docusate Sodium (Senna/Docusate Sodium 1 Tablet) 1 tablet PO BID PRN PRN PRN Reason: Constipation Last Admin: 06/19/20 17:54 Dose: 1 tablet Documented by: Sertraline HCl (Sertraline 50 Mg Tablet) 150 mg PO DAILY [facility] Last Admin: 06/21/20 09:07 Dose: 150 mg Documented by: Sodium Chloride (0.9% Saline Lock 10 Ml Syringe) 10 - 40 ml IV UD PRN PRN Reason: SALINE FLUSH Tamsulosin HCl (Tamsulosin Hcl 0.4 Mg Capsule) 0.4 mg PO DAILY@1730 [facility] Last Admin: 06/20/20 16:38 Dose: 0.4 mg Documented by: Discharge Diet: Low fat/ Low Cholesterol Discharge Activity: Return to Normal Activity Weight Bearing Status: Weight bearing as tolerated Home Medications: Medications to take at Discharge Atorvastatin Calcium [Lipitor] 20 mg PO QHS 09/27/14 Diltiazem HCl [Diltiazem 24Hr ER (Cd)] 180 mg PO DAILY 09/27/14 Lisinopril [Zestril] 5 mg PO DAILY 09/27/14 buPROPion tablets [Wellbutrin tablets] 150 mg PO DAILY 09/27/14 aspirin 325 mg tablet 325 mg PO QDAY 01/12/18 carbidopa 25 mg-levodopa 250 mg tablet 2 tab PO 4X/DAY tab 01/12/18 gabapentin 600 mg tablet 600 mg PO BID 01/12/18 calcium citrate 315 mg-vitamin D3 250 unit tablet 1 tab PO DAILY 10/22/18 ferrous sulfate 325 mg (65 mg iron) tablet 325 mg PO TID tab 10/22/18 isosorbide mononitrate 60 mg tablet,extended release 24 hr 30 mg PO DAILY tab 10/22/18 sertraline 100 mg tablet 150 mg PO DAILY tab 10/22/18 Ascorbic Acid [Vitamin C] 500 mg PO DAILY 02/07/20 Entacapone [Comtan] 200 mg PO 4X/DAY 02/07/20 Famotidine 20 mg PO QHS 02/07/20 Omeprazole 40 mg PO BID 02/07/20 levothyroxine 137 mcg tablet 175 mcg PO DAILY tab 03/24/20 Albuterol Aerosols [Ventolin Aerosols] 2.5 mg INHALATION Q6H PRN PRN 06/01/20 Cyanocobalamin [Vitamin B12] 1,000 mcg PO DAILY@0800 06/01/20 Tamsulosin HCl [Flomax] 0.4 mg PO DAILY@1730 #90 cap 06/03/20 Furosemide [Lasix] 40 mg PO BID@1000,1800 tab 06/15/20 Guaifenesin [Robitussin] 10 ml PO Q4H PRN PRN udc 06/15/20 Senna/Docusate Sodium [Senokot-S] 2 tab PO BID PRN PRN tab 06/15/20 Acetaminophen 1,000 mg PO TID PRN PRN 06/16/20 Bisacodyl [Gentle Laxative] 10 mg RC DAILY PRN PRN 06/16/20 Glucagon 1 mg IM X1 06/16/20 Magnesium Hydroxide [Milk Of Magnesia] 30 ml PO DAILY PRN PRN 06/16/20 Metoclopramide [Reglan] 10 mg PO 4X/DAY PRN #20 tab 06/16/20 Sodium Phosphate,Rutherford-Dibasic [Enema Ready To Use] 1 bottle RC DAILY PRN PRN 06/16/20 Potassium Chloride [K-Dur] 40 meq PO DAILY #30 tab 06/21/20 Following Prescriptions Were Given to Patient: Potassium Chloride [K-Dur] 40 meq PO DAILY #30 tab Prescription Printed Primary Care Physician: Roselyn Goldberg MD [Primary Care Provider] - Please follow up with your Primary Care Physician in: 1-2 weeks Disposition: [facility] facility Minutes spent on discharge:: 40 Patient Condition:: Stable Medical Necessity - Tobacco Use Smoking Status: Former smoker Meaningful Use Info Meaningful Use Diagnoses (Choose all that apply): None applicable Inpatient E&M: 30663 Disch Hosp
[2020-06-21 12:30] LABS: Bedside Glucose 258 mg/dL (70-110)
--- NOTE | 2020-06-21 13:45 | CASEMGMT ---
Social Work Note JUNE received message from Ana at [facility] stating pre-cert has been obtained and pt is able to discharge today. Ana requesting pt be transported after 3:00pm as they need to clean pt's room. Physician updated. JUNE faxed completed discharge paperwork to [facility] including transfer to extended care facility, signed medication list, any scripts, negative COVID tool, COVID screening tool and HENS. Original in SNF folder and copy on pt's chart. JUNE completed [facility]escent 7000 in HENS. Original in SNF folder and copy on pt's chart. JUNE spoke with pt and updated pt on insurance approval and discharge today. Pt states his daughter Christel should be able to transport pt. JUNE placed a call to pt's daughter Christel and left message updating her that pt is able to discharge today and asked if she will be transporting pt. JUNE received message from Christel confirming that she is able to transport pt and will be at [facility] around 4:00-4:30pm to transport pt. JUNE updated pt and RN. JUNE placed a call to Ana at [facility] and updated her on transportation time. Plan: [facility] skilled today with pt's daughter Christel transporting pt at 4:00-4:30pm Angela Zaragoza [employer]
[2020-06-21 15:07] VITALS: BP 84/42; PULSE 73; RESP 16; TEMP 36.7; O2SAT 98
== END 2020-06-21 17:26 | disposition skilled nursing facility (03) | DRG 641 ==
LOC: ED 19:17 → MS3 19:32
PROVIDERS: Internal Medicine; Emergency Provider Emergency Medicine; PCP Internal Medicine; Visit Provider Student in an Organized Health Care Education/Training Program
DX: E87.6 Hypokalemia (principal); S22.41XA Multiple fractures of ribs, right side, initial encounter for closed fracture; N17.9 Acute kidney failure, unspecified; I47.2 Ventricular tachycardia; W19.XXXA Unspecified fall, initial encounter; D50.9 Iron deficiency anemia, unspecified; E03.9 Hypothyroidism, unspecified; E11.649 Type 2 diabetes mellitus with hypoglycemia without coma; E78.5 Hyperlipidemia, unspecified; E83.42 Hypomagnesemia; F32.9 Major depressive disorder, single episode, unspecified; F41.9 Anxiety disorder, unspecified; G20 Parkinson's disease; I10 Essential (primary) hypertension; I25.10 Atherosclerotic heart disease of native coronary artery without angina pectoris; I35.0 Nonrheumatic aortic (valve) stenosis; I48.0 Paroxysmal atrial fibrillation; K21.9 Gastro-esophageal reflux disease without esophagitis; Z87.891 Personal history of nicotine dependence; Z86.73 Personal history of transient ischemic attack (TIA), and cerebral infarction without residual deficits; Z95.1 Presence of aortocoronary bypass graft; Z95.810 Presence of automatic (implantable) cardiac defibrillator; Z79.82 Long term (current) use of aspirin; Z79.4 Long term (current) use of insulin; Z79.899 Other long term (current) drug therapy; Z66 Do not resuscitate; Z85.47 Personal history of malignant neoplasm of testis; I45.10 Unspecified right bundle-branch block
CPT/HCPCS: 36415; 74019; 80048; 80053; 80076; 82962; 83735; 85025; 87635; 93005; 94640; 97110; 97116; 97162; 97166; 97530; 97535; 97802; 99283; 99285; J7030; A4216; U0003

== ENCOUNTER → 2020-07-21 09:24 | Outpatient (CLI) | payer MEDICARE, OTHER, SELFPAY ==
[2020-06-18 13:08] VITALS: BMI 23.3
[2020-07-21] VITALS (8 sets, daily range): BP systolic 123–162; BP diastolic 66–86; PULSE 62–83; RESP 14–16; TEMP 36.2–36.6; O2SAT 93–98; BMI 28.5
[2020-07-21] MEDS: 0.9% NaCl Peripheral Flush Adult/Peds IV (09:15)
[2020-07-21] MEDS: Furosemide 20 MG/2 ML VIAL IV (12:29)
== END ==
PROVIDERS: PCP Internal Medicine; Referring Provider Nurse Practitioner Family; Visit Provider Nurse Practitioner Family
DX: D64.9 Anemia, unspecified (principal)
CPT/HCPCS: 36430; 86850; 86900; 86901; 86920; 86922; J7040; P9016; A4216; J1940

== ENCOUNTER 2020-08-10 16:35 | Inpatient (IN) | payer OTHER, MEDICARE, SELFPAY ==
[2020-07-21 09:33] VITALS: BMI 28.5
[2020-08-10] VITALS (7 sets, daily range): BP systolic 111–156; BP diastolic 57–89; PULSE 70–71; RESP 18–22; TEMP 35.7–36.7; O2SAT 83–97; BMI 30.2
--- NOTE | 2020-08-10 16:55 | ED.DCSUM_ITS ---
History of Present Illness Chief Complaint: Fall Informant: Patient Narrative: 75-year-old male presenting with weakness and falling. He states that he is fallen 40 times this month. He has a history of Parkinson's disease and is currently living at home alone. He previously had his daughter coming to help him in the morning in the evening however she tested positive for Covid?19. She has been quarantining at home and he does not have the assistance that he needs. He does ambulate with a walker but has a chair as well. Patient states he has hit his head but did not lose consciousness. He states he is not on any anticoagulation. Patient recently signed [facility] He states that he has a slight cough for the past couple of days. - Past Medical History (1) Acute on chronic anemia Status: Chronic (2) Hypokalemia Status: Chronic (3) Aortocoronary bypass status Status: Chronic Comment: CABG x4- MONTERO to LAD, EPIFANIO to the Distal RCA, Right Radial Artery to the OM branch of CX, and Reverse SVG from the aorta to the Distal RCA 08/17/01 (4) Atherosclerotic heart disease of [place] coronary artery without angina pectoris Status: Chronic Comment: CABG x4- MONTERO to LAD, EPIFANIO to the Distal RCA, Right Radial Artery to the OM branch of CX, and Reverse SVG from the aorta to the Distal RCA 08/17/01 Past Medical History - Allergies and Home Meds Allergies/Adverse Reactions: Allergies Iodine and Iodide Containing Produc Allergy (Verified 07/21/20 09:39) Shortness of breath simvastatin Adverse Reaction (Verified 07/21/20 09:39) Other Prior records reviewed: Yes Past Medical History: - - Reviewed in problem list Surgical History: coronary bypass surgery, - - Unilateral orchiectomy, appendectomy, tonsillectomy, CABG x4, RFA, ICD placement. Lives: Alone Smoking Status: Former smoker Alcohol: None Drugs: None - Family History Maternal Family History: Family History (Last Reviewed 06/17/20 @ 19:[address] Randall Garcia DO) Father CAD (coronary artery disease) Myocardial infarction Mother CAD (coronary artery disease) Sister Diabetes Sister CAD (coronary artery disease) Hx of CABG Family History: Reports: High Cholesterol, Heart Disease, Hypertension Paternal Family History: Family History (Last Reviewed 06/17/20 @ 19:[address] Randall Garcia, ) Father CAD (coronary artery disease) Myocardial infarction Mother CAD (coronary artery disease) Sister Diabetes Sister CAD (coronary artery disease) Hx of CABG Family History: Reports: High Cholesterol, Heart Disease, Hypertension Review of Systems General: Reports: Malaise. Denies: Chills, Fever Eyes: Denies: Visual changes - bilaterally, Diplopia ENT: Denies: Rhinorrhea, Sore throat Cardiovascular: Denies: Chest pain, Palpitations Respiratory: Reports: Dyspnea, Cough Genitourinary: Denies: Dysuria, Hematuria Musculoskeletal: Denies: Myalgias, Arthralgias Skin: Denies: Rash, Abscess Neurological: Denies: Parasthesia, Numbness Physical Exam Vital Signs/Narrative: Vital Signs Temp Pulse Resp BP Pulse Ox 08/10/20 16:35 96.3 F L 70 22 H 111/57 L 92 General: Unkempt, No Acute Distress Head: Normocephalic, Atraumatic Eyes: Perrl, EOMI. Negative for: Scleral icterus ENT: Negative for: No rhinorrhea, Nasal congestion Cardiovascular: Regular rate, Regular rhythm Abdomen: Soft, Nontender, Nondistended Back: Nontender, Normal Inspection Extremities: Nontender. Negative for: Calf Tenderness Skin: Normal color, No rash Neurological: Alert, Oriented x3 Psychological: Normal affect, Normal Mood Diagnostic/Tx/Re-eval Clinical Impression(s) from Imaging Studies Brain CT 08/10/20 17:25 IMPRESSION: No acute intracranial and calvarial abnormality. There is no interval change. Electronically Signed: Edenilson Zhou DO at 18:50 EST Tel [phone], Service support , Cervical Spine CT 08/10/20 17:33 IMPRESSION: Degenerative changes of the cervical spine without acute fracture or subluxation. The findings are similar to the previous study. Electronically Signed: Edenilson Zhou DO at 18:54 EST Tel [phone], Service support , Chest X-Ray 08/10/20 18:23 IMPRESSION: Right pleural effusion and atelectasis not previously noted. The findings are otherwise unchanged. Electronically Signed: Edenilson Zhou DO at 18:40 EST Tel [phone], Service support , Laboratory Data 08/10/20 08/10/20 08/10/20 17:50 17:50 17:50 WBC 7.4 RBC 3.43 L Hgb 9.3 L Hct 30.4 L MCV 88.6 MCH 27.1 MCHC 30.6 L RDW Std Deviation 57.1 H RDW Coeff of Mat 18.0 H Plt Count 407 MPV 8.7 Immature Gran % (Auto) 0.500 Neut % (Auto) 81.6 H Lymph % (Auto) 5.0 L Casey % (Auto) 10.3 H Eos % (Auto) 2.2 Baso % (Auto) 0.4 Absolute Neuts (auto) 6.0 Absolute Lymphs (auto) 0.37 L Nucleated RBC % 0 Differential Comment SEE COMMENT Platelet Estimate SLT INC RBC Morphology N CHROM Anisocytosis RARE D-Dimer Quant (PE/DVT) 2.65 H* Sodium 143 Potassium 5.3 H Chloride 115 H Carbon Dioxide 21.0 Anion Gap 7 BUN 44 H Creatinine 1.32 H Estim Creat Clear Calc 39.87 Est GFR (MDRD) Af Amer 68 Est GFR (MDRD) Non-Af 56 L BUN/Creatinine Ratio 33.3 H Glucose 108 H Lactic Acid Calcium 8.9 Total Bilirubin 0.50 AST 14 L ALT 7 L Alkaline Phosphatase 151 H Troponin I < 0.015 B-Natriuretic Peptide Total Protein 6.8 Albumin 2.9 L Globulin 3.9 Albumin/Globulin Ratio 0.7 L Procalcitonin Urine Color Urine Clarity Urine pH Ur Specific [place] Urine Protein Urine Glucose (UA) Urine Ketones Urine Occult Blood Urine Nitrite Urine Bilirubin Urine Urobilinogen Ur Leukocyte Esterase Urine RBC Urine WBC Ur Squamous Epith Cells Urine Bacteria Urine Mucus COVID-19 ([facility]) 08/10/20 08/10/20 08/10/20 17:50 17:50 17:55 WBC RBC Hgb Hct MCV MCH MCHC RDW Std Deviation RDW Coeff of Mat Plt Count MPV Immature Gran % (Auto) Neut % (Auto) Lymph % (Auto) Casey % (Auto) Eos % (Auto) Baso % (Auto) Absolute Neuts (auto) Absolute Lymphs (auto) Nucleated RBC % Differential Comment Platelet Estimate RBC Morphology Anisocytosis D-Dimer Quant (PE/DVT) Sodium Potassium Chloride Carbon Dioxide Anion Gap BUN Creatinine Estim Creat Clear Calc Est GFR (MDRD) Af Amer Est GFR (MDRD) Non-Af BUN/Creatinine Ratio Glucose Lactic Acid 1.7 Calcium Total Bilirubin AST ALT Alkaline Phosphatase Troponin I B-Natriuretic Peptide 221.7 H Total Protein Albumin Globulin Albumin/Globulin Ratio Procalcitonin < 0.40 H Urine Color Urine Clarity Urine pH Ur Specific [place] Urine Protein Urine Glucose (UA) Urine Ketones Urine Occult Blood Urine Nitrite Urine Bilirubin Urine Urobilinogen Ur Leukocyte Esterase Urine RBC Urine WBC Ur Squamous Epith Cells Urine Bacteria Urine Mucus COVID-19 ([facility]) 08/10/20 08/10/20 18:00 20:55 WBC RBC Hgb Hct MCV MCH MCHC RDW Std Deviation RDW Coeff of Mat Plt Count MPV Immature Gran % (Auto) Neut % (Auto) Lymph % (Auto) Casey % (Auto) Eos % (Auto) Baso % (Auto) Absolute Neuts (auto) Absolute Lymphs (auto) Nucleated RBC % Differential Comment Platelet Estimate RBC Morphology Anisocytosis D-Dimer Quant (PE/DVT) Sodium Potassium Chloride Carbon Dioxide Anion Gap BUN Creatinine Estim Creat Clear Calc Est GFR (MDRD) Af Amer Est GFR (MDRD) Non-Af BUN/Creatinine Ratio Glucose Lactic Acid Calcium Total Bilirubin AST ALT Alkaline Phosphatase Troponin I B-Natriuretic Peptide Total Protein Albumin Globulin Albumin/Globulin Ratio Procalcitonin Urine Color Yellow Urine Clarity Sl. Cloudy Urine pH 5.0 Ur Specific [place] 1.025 Urine Protein 30 H Urine Glucose (UA) Normal Urine Ketones 5 H Urine Occult Blood 25 H Urine Nitrite Negative Urine Bilirubin Negative Urine Urobilinogen Normal Ur Leukocyte Esterase 500 H Urine RBC 0-5 SEEN Urine WBC 50-100 SEEN Ur Squamous Epith Cells 0 SEEN Urine Bacteria 1+ Urine Mucus 0 SEEN COVID-19 ([facility]) Negative - EKG Initial EKG Interpretation: Paced - 71 bpm. - Medical Decision Making Patient presents for weakness and falls he does also state that he had exposure to Covid?19 as well. He had a cough for a couple of days. He feels a little bit weaker and fell and hit his head. He denies LOC. He denies anticoagulation. Patient is alert and oriented. EKG performed on arrival was 71 bpm and is paced as interpreted by myself. Chest x-ray interpreted by myself and radiologist shows a right pleural effusion. During his stay in the ER his pulse ox dropped into the 80s. He was placed on 4 L O2 via nasal cannula. He states that he has a home O2 set up at home but he only usually takes 2 L. CBC shows leukopenia and lymphopenia patient is also anemic. His hemoglobin appears above his previous baseline. After discussion with him he states that he was recently transfused blood. BMP shows that he is dehydrated and has acute kidney injury. His potassium is slightly elevated at 5.2. He was given IV fluids for this. No EKG changes noted for the hyperkalemia. Patient tested negative with rapid antigen as well as PCR for Covid. He was found to have UTI and was treated for this with Rocephin. Urine culture was sent. Given these findings I believe the patient is to weak to go home. This was discussed with him and he was amenable to admission. Impression: 1. Hypoxia 2. Multiple falls 3. Closed head injury 4. Hyperkalemia 5. Acute kidney injury ED Disposition - Plan for ED Patient: Disposition: Acute Care [facility]
--- NOTE | 2020-08-10 17:23 | EKG12_ITS ---
Test Reason : Blood Pressure : / mmHG Vent. Rate : 071 BPM Atrial Rate : 035 BPM P-R Int : 000 ms QRS Dur : 162 ms QT Int : 502 ms P-R-T Axes : 000 -66 082 degrees QTc Int : 545 ms Ventricular-paced rhythm with occasional AV dual-paced complexes Abnormal ECG Confirmed by SOO CEVALLOS, KENDRA ([id number]), senior technical editor JESSICA OLIVER ([id number]) on 08/11/2020 2:17:26 PM Referred By: NEVAEH Confirmed By:KENDRA VANN MD
--- NOTE | 2020-08-10 17:25 | CT_ITS ---
STUDY: CT BRAIN WITHOUT CONTRAST REASON FOR EXAM: Male, 75 years old. Headache. Recurrent falls in the past month. History of Parkinson''s disease and dizziness. RADIATION DOSAGE (If Supplied By Facility): CTDIvol = ( 31.36 ) mGy, DLP = ( 1873.40 ) mGycm TECHNIQUE: Transaxial CT imaging of the brain was performed without administration of intravenous contrast material. Individualized dose optimization techniques were used for this CT. COMPARISON: 06/11/2020. FINDINGS: Normal soft tissue structures. Normal calvarium. There is mild cerebral atrophy with widening of the extra-axial spaces and ventricular dilatation. There are areas of decreased attenuation within the white matter tracts of the supratentorial brain, consistent with microvascular disease changes. Large area of encephalomalacia in the left temporoparietal region suggesting remote infarct. Normal basal ganglia and thalami. Normal brainstem. Normal cerebellum. There is no intracranial hemorrhage. There are no findings of an acute ischemic infarction. Normal visualized paranasal sinuses. CT/Brain/Head without Contrast IMPRESSION: No acute intracranial and calvarial abnormality. There is no interval change. Electronically Signed: Edenilson Zhou DO at 18:50 EST Tel [phone], Service support ,
--- NOTE | 2020-08-10 17:33 | CT_ITS ---
STUDY: CT CERVICAL SPINE WITHOUT CONTRAST REASON FOR EXAM: Male, 75 years old. Pain. History of multiple falls over the past month. Dizziness. History of Parkinson''s disease. RADIATION DOSAGE (If Supplied By Facility): CTDIvol = ( 31.36 ) mGy, DLP = ( 1873.40 ) mGycm TECHNIQUE: High resolution transaxial imaging was performed without contrast material. Sagittal and coronal images were reconstructed. Individualized dose optimization techniques were used for this CT. COMPARISON: CT of the cervical spine, 08/14/2015. FINDINGS: Normal craniovertebral junction. There are degenerative changes of the anterior atlantoaxial articulation. Normal odontoid process. Normal cervical lordosis. Normal vertebral bodies and posterior osseous elements. C2-3: Normal endplates. Normal disc height and morphology. Facet and uncovertebral joint degenerative change. Normal central canal. Minimal narrowing of the left intervertebral neuroforamen. C3-4: Loss of disc height with endplate spondylosis. Facet uncovertebral joint degenerative change. Normal central canal. Mild narrowing of bilateral intervertebral neuroforamina. C4-5: Normal endplates. Normal disc height and morphology. Facet and uncovertebral joint degenerative change. Normal central canal. Narrowing of the bilateral intervertebral neuroforamina. C5-6: Fossa disc height with endplate spondylosis. Facet and uncovertebral joint degenerative change. Normal central canal and intervertebral neuroforamina. C6-7: Endplate spondylosis with loss of disc height. Facet and uncovertebral joint degenerative change.. Normal central canal. Mild narrowing of the right intervertebral neuroforamen. C7-T1: Normal endplates. Normal disc height and morphology. Normal central canal and intervertebral neuroforamina. There is bilateral groundglass pulmonary infiltrates the lung apices with bilateral pleural effusions, right greater than left. Bilateral carotid calcifications. CT/Spine Cervical without Contras IMPRESSION: Degenerative changes of the cervical spine without acute fracture or subluxation. The findings are similar to the previous study. Electronically Signed: Edenilson Zhou DO at 18:54 EST Tel [phone], Service support ,
[2020-08-10 18:22] LABS: Mucous, Urine 0 SEEN /hpf (<or=2+); Squamous Epithelial Cells - UA 0 SEEN /hpf (0-5)
--- NOTE | 2020-08-10 18:23 | RAD_ITS ---
STUDY: X-RAY CHEST REASON FOR EXAM: Male, 75 years old. 30 falls in the past month secondary to dizziness and Parkinson''s disease. Increasing shortness of breath. Patient''s daughter has COVID 19 infection. TECHNIQUE: Single AP portable view of the chest. COMPARISON: 06/11/2020. FINDINGS: There is a right pleural effusion with atelectasis. Lungs appear otherwise clear. Sternal cerclage wires are present from a prior sternotomy. Stable cardiac pacemaker. The heart is normal in size. Normal mediastinum and arun. Normal visualized pulmonary arteries. There is atherosclerotic calcification of the aortic arch with tortuosity. No visualized osseous changes. There is no demonstrated abnormality of the visualized soft tissue structures of the upper abdomen. RAD/Chest 1 View (Portable) IMPRESSION: Right pleural effusion and atelectasis not previously noted. The findings are otherwise unchanged. Electronically Signed: Edenilson Zhou DO at 18:40 EST Tel [phone], Service support ,
[2020-08-10 18:27] LABS: Color, Urine Yellow (Yellow); Glucose, Dipstick Normal (Normal); Ketone-Dipstick 5 mg/dl (Negative); Leukocyte Esterase-Dipstick 500 /ul (Negative); Nitrite-Dipstick Negative (Negative); Occult Blood-Urine 25 /ul (Negative); Protein-Dipstick 30 mg/dl (Negative); Specific Gravity, Urine 1.025 (1.002-1.030); Urine Bilirubin Dipstick Negative (Negative); Urine Clarity Sl. Cloudy (Clear); Urine Urobilinogen Normal (Normal)
[2020-08-10 18:28] LABS: Absolute Lymphocyte Count 0.37 X10^3/uL (0.83-4.51); Basophil# 0.03 X10^3/uL; Basophil% 0.4 % (0-1); Eosinophil# 0.16 X10^3/uL; Eosinophils% 2.2 % (0-5); Hematocrit 30.4 % (40-54); Hemoglobin 9.3 g/dL (13.0-16.5); Lymphocyte # 0.37 X10^3/ul (4.0); Mean Corp Hgb Conc 30.6 g/dL (32-36); Mean Corpuscular Hgb 27.1 pg (27.0-32.0); Mean Corpuscular Volume 88.6 fL (80-94); Mean Platelet Vol. 8.7 fl (6.2-12.0); Monocyte# 0.76 X10^3/uL; Monocyte% 10.3 % (0-10); NRBC Flagged by Analyzer 0 % (0-5); Neutrophil # 5.99 X10^3/uL (2.7-7.7); Neutrophil % 81.6 % (47-70); POSITIVE DIFFERENTIAL YES; Platelet Count 407 K/mm3 (150-450); RBC Distribution Width SD 57.1 fl (35.1-43.9); Red Blood Count 3.43 M/mm3 (4.6-6.2); White Blood Count 7.4 K/mm3 (4.4-11.0)
[2020-08-10 18:31] LABS: Differential Indicated SCAN CRITERIA MET
[2020-08-10 18:39] LABS: D-Dimer Quantitative (DVT/PE) 2.65 FEU/ug/m (0.27-0.49)
[2020-08-10 18:42] LABS: Bacteria 1+ /hpf (None Seen); Red Blood Cells-Urine 0-5 SEEN /hpf (0-5); White Blood Cells 50-100 SEEN /hpf (0-5)
[2020-08-10 18:43] LABS: ALB/GLOB Ratio 0.7 RATIO (0.9-2.4); AST(SGOT) 14 U/L (15-37); Alanine Aminotransfer ALT/SGPT 7 U/L (16-61); Albumin, Serum 2.9 g/dL (3.2-5.0); Alkaline Phosphatase 151 U/L (45-117); Anion Gap 7 (5-15); BUN 44 mg/dL (7-18); BUN/Creat Ratio 33.3 RATIO (10-20); Calcium,Total 8.9 mg/dL (8.5-10.1); Chloride 115 mmol/L (98-107); Creatinine, Serum 1.32 mg/dL (0.70-1.30); EST Glomerular Filtration Rate 56 mL/min (>60); Est Glom Filt Rate - Afr Amer 68 mL/min (>60); Estimated Creatinine Clearance 39.87 ml/min; Globulin 3.9 g/dL (2.2-4.2); Glucose 108 mg/dL (74-106); Potassium 5.3 mmol/L (3.5-5.1); Protein, Total 6.8 g/dL (6.4-8.2); Sodium Level 143 mmol/L (136-145)
[2020-08-10 19:01] LABS: Lactic Acid 1.7 mmol/L (0.4-1.9)
[2020-08-10 19:29] LABS: Anisocytosis RARE; Platelet Estimate SLT INC (ADEQ); Red Cell Morphology N CHROM NORMAL (NORM C&C)
[2020-08-10] MEDS: Ceftriaxone 1 GM/50 ML BAG IV (19:38)
[2020-08-10 19:42] LABS: BNP,B-Type NATRIURETIC PEPTIDE 221.7 pg/mL (0-100)
[2020-08-10 20:00] LABS: Procalcitonin < 0.40 ng/mL (0.00-0.09)
--- NOTE | 2020-08-10 21:07 | ED.RN ---
PHONE CALL TO DAUGHTER, SANAZ, TO GET UPDATED INFORMATION ON PATIENT, WITH PATIENT'S CONSENT. DAUGHTER STATES PATIENT SIGNED HIMSELF OUT OF THE AVENUE AMA ON 08/04. DAUGHTER ALSO STATES PATIENT IS UNABLE TO CARE FOR HIMSELF AT HOME. RN WILL RELAY MESSAGE TO DR HERRING.
[2020-08-10] MEDS: Famotidine 20 MG Tablet PO (22:37)
[2020-08-10] MEDS: Hydrocortisone Sod Succinate 100 MG/2 ML Vial IV (22:38)
[2020-08-10 22:43] LABS: Probe Check PASS; Specimen Processing Control PASS
--- NOTE | 2020-08-10 22:45 | PCM.HP.STD ---
Problem List (1) Seizure Status: Chronic (2) Parkinsons Status: Chronic (3) Acute on chronic anemia Status: Chronic (4) Acute kidney injury Status: Acute (5) Implantable cardioverter-defibrillator (ICD) at end of battery life Status: Chronic (6) Nonrheumatic aortic (valve) stenosis Status: Chronic (7) Paroxysmal atrial fibrillation Status: Chronic (8) Essential hypertension Status: Chronic (9) Atherosclerotic heart disease of [place] coronary artery without angina pectoris Status: Chronic Qualifiers: [place] vs. transplanted heart: [place] heart Qualified Code(s): I25.10 - Atherosclerotic heart disease of [place] coronary artery without angina pectoris Comment: CABG x4- MONTERO to LAD, EPIFANIO to the Distal RCA, Right Radial Artery to the OM branch of CX, and Reverse SVG from the aorta to the Distal RCA 08/17/01 (10) Aortocoronary bypass status Status: Chronic Comment: CABG x4- MONTERO to LAD, EPIFANIO to the Distal RCA, Right Radial Artery to the OM branch of CX, and Reverse SVG from the aorta to the Distal RCA 08/17/01 (11) Hyperlipidemia Status: Chronic Qualifiers: Hyperlipidemia type: unspecified Qualified Code(s): E78.5 - Hyperlipidemia, unspecified (12) Carotid bruit Status: Chronic (13) Long-term use of high-risk medication Status: Chronic (14) Paroxysmal ventricular tachycardia Status: Chronic (15) Implantable cardioverter-defibrillator (ICD) in situ Status: Chronic (16) Type 2 diabetes mellitus Status: Chronic Qualifiers: Diabetes mellitus half-way insulin use: with half-way use Diabetes mellitus complication status: without complication Qualified Code(s): E11.9 - Type 2 diabetes mellitus without complications; Z79.4 - assisted (current) use of insulin History of Present Illness Date of Admission: 08/10/20 Chief Complaint: sob The patient is a 75 year old M with a significant history of Parkinson's disease who presents emergency department with progressively worsening shortness of breath. Is unable to give a timeline for shortness of breath. Associated for symptoms is headache x2 days. Also patient has a nonproductive cough x3 days. He reports chronic fatigue. He denies any loss of taste or loss of smell. He has a good appetite. He has been falling multiple times. He reported he fell and has pain in his left ribs. Patient reports chronic urinary urgency. At the emergency department his urinalysis was abnormal. His creatinine was elevated above his baseline. Rapid antigen Covid was negative. D-dimer was severely elevated. Patient has a new right pleural effusion. At emergency department patient was hypoxic and required nasal oxygen. Past Medical History Past Medical History (Chronic Problems): Chronic Problems (Last Reviewed 08/11/20 @ 01:[address] Vick Gay MD) Seizure (Chronic) Parkinsons (Chronic) Acute on chronic anemia (Chronic) Implantable cardioverter-defibrillator (ICD) at end of battery life (Chronic) Nonrheumatic aortic (valve) stenosis (Chronic) Paroxysmal atrial fibrillation (Chronic) Essential hypertension (Chronic) Atherosclerotic heart disease of [place] coronary artery without angina pectoris (Chronic) CABG x4- MONTERO to LAD, EPIFANIO to the Distal RCA, Right Radial Artery to the OM branch of CX, and Reverse SVG from the aorta to the Distal RCA 08/17/01 Aortocoronary bypass status (Chronic ~08/17/01) CABG x4- MONTERO to LAD, EPIFANIO to the Distal RCA, Right Radial Artery to the OM branch of CX, and Reverse SVG from the aorta to the Distal RCA 08/17/01 Hyperlipidemia (Chronic) Carotid bruit (Chronic) Long-term use of high-risk medication (Chronic) Paroxysmal ventricular tachycardia (Chronic) Implantable cardioverter-defibrillator (ICD) in situ (Chronic ~10/23/11) Type 2 diabetes mellitus (Chronic) Medical History: Medical History (Last Reviewed 08/11/20 @ 02:[address] Vick Gay MD) Nonrheumatic aortic (valve) stenosis (Chronic) I35.0 Paroxysmal atrial fibrillation (Chronic) I48.0 Essential hypertension (Chronic) I10 Atherosclerotic heart disease of [place] coronary artery without angina pectoris (Chronic) I25.10 CABG x4- MONTERO to LAD, EPIFANIO to the Distal RCA, Right Radial Artery to the OM branch of CX, and Reverse SVG from the aorta to the Distal RCA 08/17/01 Hyperlipidemia (Chronic) E78.5 Carotid bruit (Chronic) R09.89 Long-term use of high-risk medication (Chronic) Z79.899 Paroxysmal ventricular tachycardia (Chronic) I47.2 Type 2 diabetes mellitus (Chronic) E11.9 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 Parkinsons disease G20 Atrial flutter (Inactive) I48.92 Hypertension (Inactive) I10 Allergies Iodine and Iodide Containing Produc Allergy (Verified 07/21/20 09:39) Shortness of breath simvastatin Adverse Reaction (Verified 07/21/20 09:39) Other Home Medications: Ambulatory Orders Medication Instructions Recorded Atorvastatin Calcium [Lipitor] 20 mg PO QHS 09/27/14 Diltiazem HCl [Diltiazem 24Hr ER 180 mg PO DAILY 09/27/14 ()] Lisinopril [Zestril] 5 mg PO DAILY 09/27/14 buPROPion tablets [Wellbutrin 150 mg PO DAILY 09/27/14 tablets] carbidopa 25 mg-levodopa 250 mg 1 tab PO 4X/DAY tab 01/12/18 tablet gabapentin 600 mg tablet 600 mg PO BID 01/12/18 calcium citrate 315 mg 1 tab PO DAILY 10/22/18 calcium-vitamin D3 6.25 mcg (250 unit) tablet ferrous sulfate 325 mg (65 mg 325 mg PO TID tab 10/22/18 iron) tablet isosorbide mononitrate 60 mg 30 mg PO DAILY tab 10/22/18 tablet,extended release 24 hr sertraline 100 mg tablet 150 mg PO DAILY tab 10/22/18 Ascorbic Acid [Vitamin C] 500 mg PO DAILY 02/07/20 Entacapone [Comtan] 200 mg PO 4X/DAY 02/07/20 Famotidine 20 mg PO QHS 02/07/20 Omeprazole 40 mg PO BID 02/07/20 Cyanocobalamin [Vitamin B12] 1,000 mcg PO DAILY@0800 06/01/20 Furosemide [Lasix] 20 mg PO BID 08/10/20 Insulin Aspart [Novolog Flexpen See Protocol [facility] 08/10/20 ([facility])] Insulin Glargine,Hum.rec.anlog 25 unit SQ QHS 08/10/20 [Lantus Solostar] Ipratropium/Albuterol Respimat 1 puff INHALATION 4X/DAY 08/10/20 [Combivent Respimat Inhal [place]] Levothyroxine Sodium [Synthroid] 175 mcg PO DAILY 08/10/20 Potassium Chloride [K-Dur] 20 meq PO DAILY 08/10/20 Tamsulosin HCl [Flomax] 0.4 mg PO DAILY@0800 08/10/20 Surgical History: Surgical History (Last Reviewed 08/11/20 @ 01:[address] Vick Gay MD) Aortocoronary bypass status (Chronic) Onset Date: ~08/17/01 Z95.1 CABG x4- MONTERO to LAD, EPIFANIO to the Distal RCA, Right Radial Artery to the OM branch of CX, and Reverse SVG from the aorta to the Distal RCA 08/17/01 Implantable cardioverter-defibrillator (ICD) in situ (Chronic) Onset Date: ~10/23/11 Z95.810 History of appendectomy Z90.49 History of cardiac radiofrequency ablation Onset Date: ~06/2003 Z98.890 History of orchiectomy, unilateral Z90.79 History of tonsillectomy Z90.89 Surgical History: coronary bypass surgery, - - Unilateral orchiectomy, appendectomy, tonsillectomy, CABG x4, RFA, ICD placement. Psychiatric History: No pertinent psych hx Smoking Status: Never smoker - *Family History Maternal Family History: Family History (Last Reviewed 08/11/20 @ 01:[address] Vick Gay MD) Father CAD (coronary artery disease) Myocardial infarction Mother CAD (coronary artery disease) Sister Diabetes Sister CAD (coronary artery disease) Hx of CABG History Items: High Cholesterol, Heart Disease, Hypertension Paternal Family History: Family History (Last Reviewed 08/11/20 @ 01:[address] Vick Gay MD) Father CAD (coronary artery disease) Myocardial infarction Mother CAD (coronary artery disease) Sister Diabetes Sister CAD (coronary artery disease) Hx of CABG History Items: High Cholesterol, Heart Disease, Hypertension Review of Systems Constitutional: Reports: Weakness, Weight Change - He reports weight loss, Fatigue. Denies: Chills, Fever HEENT: Denies: Head Aches, Sinus Congestion, Sinus Drainage Cardiovascular: Denies: Palpitations Respiratory: Reports: Cough, Shortness of Breath. Denies: Shortness of breath at rest, Sputum production Gastrointestinal: Denies: Abdominal Pain, Nausea, Vomiting Genitourinary: Reports: Urgency. Denies: Dysuria Musculoskeletal: Denies: Joint Pain, Joint Tenderness Skin: Denies: Rash, Wounds Neurological: Denies: Numbness, Tingling, Focal weakness Psychiatric: Denies: Anxiety, Depression, Homicidal Ideations, Suicidal Ideations Hematologic/ Lymphatic: Denies: Easy Bruising, Easy Bleeding VTE Information - Inpt Only VTE Present on Admission: No VTE Mechan Device Prophylaxis: SCD's VTE Pharm Prophylaxis ordered?: No Patient Problems: Active and Suspected Problems (Last Reviewed 08/11/20 @ 01:[address] Vick Gay MD) Acute kidney injury (Acute) - Physical Exam Vitals/I&O's: Vital Signs Temp Pulse Resp BP Pulse Ox 96.3 F L 70 18 146/89 H 95 08/10/20 16:35 08/10/20 22:12 08/10/20 22:12 08/10/20 22:12 08/10/20 22:12 Oxygen Flow Rate (L/min) 3 Oxygen Delivery Method Room Air Weight: 80 kg Body Mass Index (BMI) 30.2 Finger Stick Blood Glucose 151 Intake and Output for Last 24 Hours 08/08/20 08/09/20 08/10/20 23:59 23:59 23:59 Intake Total 550 / 550 Balance 550 / 550 General: Alert, Oriented x3, Cooperative HEENT: Atraumatic, PERRLA, EOMI, Normocephalic Neck: Supple, No JVD, Negative Carotid Bruits Lungs: Wheezes - mild Cardiovascular: Regular rate, Normal S1, Normal S2, Murmur - chronic Abdomen: Bowel Sounds Present, Soft, Non Tender Extremities: No edema, Capillary Refill Less than 3 Seconds Skin: No rashes, No breakdown Musculoskeletal: No Tenderness to Palpation of Joints or Extremities Neurological: Cranial nerves II-XII grossly intact Psych/Mental Status: Normal Affect, Appropriate Microbiology Past 72 Hours 08/10/20 17:50 Mucosa - Nose SARS-CoV-2 Antigen (Rapid) - Final Laboratory Results 08/10/20 17:50: WBC 7.4, RBC 3.43 L, Hgb 9.3 L, Hct 30.4 L, MCV 88.6, MCH 27.1, MCHC 30.6 L, RDW Std Deviation 57.1 H, RDW Coeff of Mat 18.0 H, Plt Count 407, MPV 8.7, Immature Gran % (Auto) 0.500, Neut % (Auto) 81.6 H, Lymph % (Auto) 5.0 L, [place] % (Auto) 10.3 H, Eos % (Auto) 2.2, Baso % (Auto) 0.4, Absolute Neuts (auto) 6.0, Absolute Lymphs (auto) 0.37 L, Nucleated RBC % 0, Differential Comment SEE COMMENT, Platelet Estimate SLT INC, RBC Morphology N CHROM, Anisocytosis RARE 08/10/20 17:50: D-Dimer Quant (PE/DVT) 2.65 H* 08/10/20 17:50: Sodium 143, Potassium 5.3 H, Chloride 115 H, Carbon Dioxide 21.0, Anion Gap 7, BUN 44 H, Creatinine 1.32 H, Estim Creat Clear Calc 39.87, Est GFR (MDRD) Af Amer 68, Est GFR (MDRD) Non-Af 56 L, BUN/Creatinine Ratio 33.3 H, Glucose 108 H, Calcium 8.9, Total Bilirubin 0.50, AST 14 L, ALT 7 L, Alkaline Phosphatase 151 H, Troponin I < 0.015, Total Protein 6.8, Albumin 2.9 L, Globulin 3.9, Albumin/Globulin Ratio 0.7 L 08/10/20 17:50: B-Natriuretic Peptide 221.7 H 08/10/20 17:50: Procalcitonin < 0.40 H 08/10/20 17:55: Lactic Acid 1.7 08/10/20 18:00: Urine Color Yellow, Urine Clarity Sl. Cloudy, Urine pH 5.0, Ur Specific [place] 1.025, Urine Protein 30 H, Urine Glucose (UA) Normal, Urine Ketones 5 H, Urine Occult Blood 25 H, Urine Nitrite Negative, Urine Bilirubin Negative, Urine Urobilinogen Normal, Ur Leukocyte Esterase 500 H, Urine RBC 0-5 SEEN, Urine WBC 50-100 SEEN, Ur Squamous Epith Cells 0 SEEN, Urine Bacteria 1+, Urine Mucus 0 SEEN 08/10/20 20:55: COVID-19 ([facility]) Negative Assessment/Plan All Active Problems (Last Reviewed 08/11/20 @ 01:[address] Vick Gay MD) Acute kidney injury (Acute) Acute hypoxemic respiratory insufficiency/pleural effusion/elevated D-dimer Impression of chest x-ray by radiologist: Right pleural effusion and atelectasis not previously noted. The findings are otherwise unchanged. Actual chest x-ray was independently interpreted. Previous chest x-ray was also reviewed. I agree with radiologist interpretation. Placed on nasal cannula Oxygen at emergency department. Oxygen supplementation continued. Order for thoracentesis with diagnostic studies. Serum LDH ordered. D-dimer 2.65; still elevated if age-adjusted. Well score is intermediate. Hold off anticoagulation at this time in the setting of ordered thoracentesis. Patient has a history of dyspnea with contrast. Was premedicated at the ED with steroid and IV fluid in anticipation of a CTA to be ordered at the [facility]. However will avoid CTA at this time. VQ scan ordered. DuoNeb continued.. Albuterol ordered. Incentive spirometer ordered. Covid was negative. Although patient had being in contact with daughter who had covid; Covid antigen and PCR was negative. Chest x-ray does not look like a Covid. Patient symptomology is not classic for Covid. IDALIA Creatinine presentation was 1.32; BUN is 44. BUN over creatinine is 33.3. Likely prerenal. Of note also his potassium is elevated at 5.3. IV hydration ordered. Avoid nephrotoxins. Hold home lisinopril and Lasix. BNP is unrevealing. Less likely heart failure. Echocardiogram on 02/07/2020: Estimated ejection fraction 60%. Trend BMP. Acute Cystitis Patient with abnormal urinalysis. Urine bacteria 1+. Chronic urinary urgency. Will treat as UTI. Received ceftriaxone at the emergency department. Ceftriaxone continued. Follow urine culture. Follow blood culture ordered at emergency department. Paroxysmal A. fib Cardizem continued Patient is not on anticoagulation. Presume likely secondary to multiple falls. Parkinson's disease Carbidopa levodopa continued. Entacapone continued. Diabetes mellitus Blood glucose on presentation was mildly elevated at 108. Patient is at risk of hypoglycemia. Hold home Lantus. Accu-Chek QA [facility] with no correction scale for now. Depression Bupropion continued. BPH Flomax continued. DVT prophylaxis SCD Inpatient E&M: 14884 Init Hosp L3
[2020-08-11] VITALS (13 sets, daily range): BP systolic 121–153; BP diastolic 52–70; PULSE 68–88; RESP 18–24; TEMP 36.4–38; O2SAT 87–100; BMI 30.4; BMI 30.5
--- NOTE | 2020-08-11 | FLU_PTH ---
PATIENT: EVELIN VITAL LOC: MS3 U#:[id number] AGE/SX: 75/M ROOM: [facility] [place] RE08/10/[address]: Dr. Leland Kan MD : 1945 BED: 1 DIS: 08/14/2020 SPEC #: [id number] RECD: 08/11/20 14:14 STATUS: DICK RAMIN #: [id number] ELIJAH: 08/11/20 00:[address]: Leland Kan DEPT: CYTOLOGY RECD BY: Regina Mack ENTERED: 08/14/20 09:44 SP TYPE: Fluid OTHR DR: MD Dr. Vick Mcdaniel MD [facility] Tissues: THORACIC FLUID Procedures: Special Stain Group II Surgery Specimen Level IV Cytospin Fluid HEADER OPERATION: Ultrasound-guided right thoracentesis PRE-OP DIAGNOSIS: Acute hypoxemic respiratory insufficiency TISSUE SUBMITTED: Thoracentesis fluid for cytology DIAGNOSIS CYTOLOGY Thoracentesis fluid for cytology (cytospin and cell block): Negative for malignant cells. AM:quita 08/15/20 CYTOLOGY STUDY Slides are reviewed. CYTOLOGY GROSS Received is 90 ml of yellow cloudy fluid labeled with the patient's name and and designated per the requisition as thoracentesis. Submitted for cytology preparation including cell block. / quita 08/14/20 TC:5 CPT: 53796, 92415
--- NOTE | 2020-08-11 00:20 | ED.RN ---
daughter, jose, updated with room number and patient status.
--- NOTE | 2020-08-11 00:32 | US_ITS ---
PROCEDURE: ULTRASOUND GUIDED THORACENTESIS. DATE: 08/11/2020. INDICATION: Male, 75 years old. Right pleural effusion. PHYSICIAN: Charles Steen M.D. PROCEDURE: The risks, benefits, and alternatives to the procedure were explained to the patient. The specific risks of bleeding, infection, and pneumothorax requiring chest tube insertion were discussed and accepted. Written informed consent was obtained. Ultrasonographic evaluation of the right lower pleural space was carried out. An adequate pocket was identified. The patient was placed in the sitting, upright position. The overlying skin was prepped and draped in sterile fashion. 1% lidocaine was administered subcutaneously for local anesthesia. Under ultrasound guidance, a 5 [place] thoracentesis needle/catheter system was advanced into the right posterior lower pleural fluid collection. Approximately 2050 mL of otoniel-colored fluid fluid was drained. The catheter was removed, and a sterile dressing was applied. A specimen was collected and sent to the laboratory for analysis, as requested by the referring clinician. The patient tolerated the procedure well. A chest x-ray was ordered. US/Thoracentesis W US IMPRESSION: Ultrasound-guided right thoracentesis. Electronically Signed: Charles Steen, at 14:34 EST , Service support ,
[2020-08-11] MEDS: 0.9% Normal Saline 1,000 ML 75 ML IV (01:13)
--- NOTE | 2020-08-11 03:37 | PCS.PANDOC ---
PANDEMIC DOCUMENTATION INITIATED: Date: 08/11/20 Time: 29
[2020-08-11] MEDS: Menthol/Lanolin/Calamine/Znox 113 GM Tube 1 APPLIC TOPICAL ×2 (05:14→20:14)
[2020-08-11] MEDS: 0.9% Saline Lock 10 ML Syringe IV ×3 (05:14→22:49)
[2020-08-11 05:21] LABS: Bedside Glucose 131 mg/dL (70-110)
[2020-08-11] MEDS: Ipratropium/Albuterol Sulfate 3 ML AMPUL.NEB INHALATION ×3 (05:27→19:00)
[2020-08-11 07:11] LABS: Absolute Lymphocyte Count 0.24 X10^3/uL (0.83-4.51); Absolute Neutrophil Count 6.6 X10^3/uL (2.0-7.7); Basophil# 0.01 X10^3/uL; Basophil% 0.1 % (0-1); Hematocrit 30.4 % (40-54); Hemoglobin 9.3 g/dL (13.0-16.5); Lymphocyte # 0.24 X10^3/ul (4.0); Lymphocyte % 3.3 % (19-41); Mean Corp Hgb Conc 30.6 g/dL (32-36); Mean Corpuscular Hgb 27.2 pg (27.0-32.0); Mean Corpuscular Volume 88.9 fL (80-94); Mean Platelet Vol. 8.9 fl (6.2-12.0); Monocyte# 0.28 X10^3/uL; Monocyte% 3.9 % (0-10); NRBC Flagged by Analyzer 0 % (0-5); Neutrophil # 6.63 X10^3/uL (2.7-7.7); Neutrophil % 92.1 % (47-70); POSITIVE DIFFERENTIAL YES; Platelet Count 406 K/mm3 (150-450); RBC Distribution Width SD 57.4 fl (35.1-43.9); Red Blood Count 3.42 M/mm3 (4.6-6.2); White Blood Count 7.2 K/mm3 (4.4-11.0)
[2020-08-11 07:14] LABS: Differential Indicated SCAN CRITERIA MET
[2020-08-11 07:37] LABS: Anion Gap 5 (5-15); BUN 41 mg/dL (7-18); BUN/Creat Ratio 37.6 RATIO (10-20); Calcium,Total 8.8 mg/dL (8.5-10.1); Chloride 115 mmol/L (98-107); Creatinine, Serum 1.09 mg/dL (0.70-1.30); EST Glomerular Filtration Rate 70 mL/min (>60); Est Glom Filt Rate - Afr Amer 85 mL/min (>60); Estimated Creatinine Clearance 48.28 ml/min; Glucose 121 mg/dL (74-106); LDH 204 U/L (87-241); Potassium 5.4 mmol/L (3.5-5.1); Sodium Level 140 mmol/L (136-145)
[2020-08-11 07:46] LABS: Differential Comment SCANNED
[2020-08-11] MEDS: Sertraline 100 MG Tablet 150 MG PO (08:56)
[2020-08-11] MEDS: Cyanocobalamin 500 MCG Tablet 1000 MCG PO (08:57)
[2020-08-11] MEDS: Calcium Carb/Vitamin D 1 TABLET Tablet PO (08:57)
[2020-08-11] MEDS: Pantoprazole Sodium 40 MG Tablet PO ×2 (08:57→20:17)
[2020-08-11] MEDS: Carbidopa/Levodopa 25/250 Tablet PO ×4 (08:57→20:16)
[2020-08-11] MEDS: Tamsulosin HCl 0.4 MG Capsule PO (08:58)
[2020-08-11] MEDS: Ferrous Sulfate 325 MG Tablet PO ×3 (08:58→17:11)
[2020-08-11] MEDS: buPROPion (XL) 150 MG TABLET.XL PO (08:58)
[2020-08-11] MEDS: dilTIAZem CD 180 MG Capsule PO (08:58)
[2020-08-11] MEDS: predniSONE 20 MG Tablet 50 MG PO ×3 (08:58→20:12)
[2020-08-11] MEDS: Gabapentin 600 MG Tablet PO ×2 (08:58→20:15)
[2020-08-11] MEDS: Levothyroxine 175 MCG Tablet PO (08:58)
[2020-08-11] MEDS: Ascorbic Acid 500 MG Tablet PO (08:58)
[2020-08-11] MEDS: Isosorbide Mononitrate 30 MG Tablet PO (08:58)
--- NOTE | 2020-08-11 11:34 | PN_ITS ---
Patient Problems: Active and Suspected Problems (Last Reviewed 08/11/20 @ 02:[address] Vick Gay MD) Acute kidney injury (Acute) Subjective: Continues to be short of breath requiring 2 L nasal cannula. He has a right pleural effusion and unfortunately did not obtain a CTA of the chest yesterday. A VQ scan would be unhelpful at this time. We will plan to premedicate for his CTA. Vitals/I&O's: Vital Signs Temp Pulse Resp BP Pulse Ox 98.6 F 78 20 H 142/60 H 94 08/11/20 08:50 08/11/20 08:50 08/11/20 08:50 08/11/20 08:50 08/11/20 08:50 Oxygen Flow Rate (L/min) 2 Oxygen Delivery Method Nasal Cannula Weight: 178 lb 2.136 oz Body Mass Index (BMI) 30.4 Finger Stick Blood Glucose 151 Intake and Output for Last 24 Hours 08/09/20 08/10/20 08/11/20 23:59 23:59 23:59 Intake Total 550 / 550 360 / 360 Balance 550 / 550 360 / 360 General: Alert, Oriented x3, Cooperative, No apparent distress HEENT: Atraumatic, PERRLA, EOMI, Normocephalic Oral: Moist Mucosa Neck: Supple, No JVD Lungs: Normal air movement, Diminished, Wheezes Cardiovascular: Regular rate, Regular Rhythm, Normal S1, Normal S2, Murmur Abdomen: Soft, Non Tender, Non-Distended, No Hepato-splenomegaly Extremities: No edema, Capillary Refill Less than 3 Seconds Skin: No rashes, No breakdown Neurological: Neuro grossly intact, Sensory exam intact to light touch and pain, - - Chronic tremor from Parkinson's Psych/Mental Status: Normal Affect, Appropriate Microbiology Past 72 Hours 08/10/20 17:50 Mucosa - Nose SARS-CoV-2 Antigen (Rapid) - Final Laboratory Results 08/10/20 17:50: WBC 7.4, RBC 3.43 L, Hgb 9.3 L, Hct 30.4 L, MCV 88.6, MCH 27.1, MCHC 30.6 L, RDW Std Deviation 57.1 H, RDW Coeff of Mat 18.0 H, Plt Count 407, MPV 8.7, Immature Gran % (Auto) 0.500, Neut % (Auto) 81.6 H, Lymph % (Auto) 5.0 L, Person % (Auto) 10.3 H, Eos % (Auto) 2.2, Baso % (Auto) 0.4, Absolute Neuts (auto) 6.0, Absolute Lymphs (auto) 0.37 L, Nucleated RBC % 0, Differential Comment SEE COMMENT, Platelet Estimate SLT INC, RBC Morphology N CHROM, Anisocytosis RARE 08/10/20 17:50: D-Dimer Quant (PE/DVT) 2.65 H* 08/10/20 17:50: Sodium 143, Potassium 5.3 H, Chloride 115 H, Carbon Dioxide 21.0, Anion Gap 7, BUN 44 H, Creatinine 1.32 H, Estim Creat Clear Calc 39.87, Est GFR (MDRD) Af Amer 68, Est GFR (MDRD) Non-Af 56 L, BUN/Creatinine Ratio 33.3 H, Glucose 108 H, Calcium 8.9, Total Bilirubin 0.50, AST 14 L, ALT 7 L, Alkaline Phosphatase 151 H, Troponin I < 0.015, Total Protein 6.8, Albumin 2.9 L, Globulin 3.9, Albumin/Globulin Ratio 0.7 L 08/10/20 17:50: B-Natriuretic Peptide 221.7 H 08/10/20 17:50: Procalcitonin < 0.40 H 08/10/20 17:55: Lactic Acid 1.7 08/10/20 18:00: Urine Color Yellow, Urine Clarity Sl. Cloudy, Urine pH 5.0, Ur Specific [place] 1.025, Urine Protein 30 H, Urine Glucose (UA) Normal, Urine Ketones 5 H, Urine Occult Blood 25 H, Urine Nitrite Negative, Urine Bilirubin Negative, Urine Urobilinogen Normal, Ur Leukocyte Esterase 500 H, Urine RBC 0-5 SEEN, Urine WBC 50-100 SEEN, Ur Squamous Epith Cells 0 SEEN, Urine Bacteria 1+, Urine Mucus 0 SEEN 08/10/20 20:55: COVID-19 ([facility]) Negative 08/11/20 05:13: POC Glucose 131 H 08/11/20 06:42: WBC 7.2, RBC 3.42 L, Hgb 9.3 L, Hct 30.4 L, MCV 88.9, MCH 27.2, MCHC 30.6 L, RDW Std Deviation 57.4 H, RDW Coeff of Mat 18.0 H, Plt Count 406, MPV 8.9, Immature Gran % (Auto) 0.600, Neut % (Auto) 92.1 H, Lymph % (Auto) 3.3 L, Person % (Auto) 3.9, Eos % (Auto) 0.0, Baso % (Auto) 0.1, Absolute Neuts (auto) 6.6, Absolute Lymphs (auto) 0.24 L, Nucleated RBC % 0, Differential Comment SCAN JOSE MANUEL 08/11/20 06:42: Sodium 140, Potassium 5.4 H, Chloride 115 H, Carbon Dioxide 20.0 L, Anion Gap 5, BUN 41 H, Creatinine 1.09, Estim Creat Clear Calc 48.28, Est GFR (MDRD) Af Amer 85, Est GFR (MDRD) Non-Af 70, BUN/Creatinine Ratio 37.6 H, Glucose 121 H, Calcium 8.8, Lactate Dehydrogenase 204 Current Medications Albuterol Sulfate (Albuterol 2.5 Mg/3 Ml Vial.Neb.) 2.5 mg INHALATION Q2H PRN PRN PRN Reason: SOB/Wheezing Albuterol/Ipratropium (Ipratropium/Albuterol Sulfate 3 Ml Ampul.Neb) 3 ml INHALATION Q6HWA.RT ROBERTO Last Admin: 08/11/20 05:27 Dose: 3 ml Documented by: Ascorbic Acid (Ascorbic Acid 500 Mg Tablet) 500 mg PO DAILY [facility] Last Admin: 08/11/20 08:58 Dose: 500 mg Documented by: Atorvastatin Calcium (Atorvastatin Calcium 20 Mg Tablet) 20 mg PO QHS ROBERTO Bupropion HCl (Bupropion (Xl) 150 Mg Tablet.Xl) 150 mg PO DAILY [facility] Last Admin: 08/11/20 08:58 Dose: 150 mg Documented by: Calamine/Phenol (Menthol/Lanolin/Calamine/Znox 113 Gm Tube) 1 applic TOPICAL BID ROBERTO; Protocol Last Admin: 08/11/20 05:14 Dose: 1 applicatio Documented by: Calcium/Vitamin D (Calcium Carb/Vitamin D 1 Tablet Tablet) 1 tablet PO DAILY [facility] Last Admin: 08/11/20 08:57 Dose: 1 tablet Documented by: Carbidopa/Levodopa (Carbidopa/Levodopa 25/250 Tablet) 1 tablet PO 4X/DAY [facility] Last Admin: 08/11/20 08:57 Dose: 1 tablet Documented by: Cyanocobalamin (Cyanocobalamin 500 Mcg Tablet) 1,000 mcg PO DAILY [facility] Last Admin: 08/11/20 08:57 Dose: 1,000 mcg Documented by: Diltiazem HCl (Diltiazem Cd 180 Mg Capsule) 180 mg PO DAILY [facility] Last Admin: 08/11/20 08:58 Dose: 180 mg Documented by: Diphenhydramine HCl (Diphenhydramine 25 Mg Capsule) 50 mg PO X1 ONE Stop: 08/11/20 20:01 Entacapone (Entacapone 200 Mg Tablet) 200 mg PO 4X/DAY [facility] Last Admin: 08/11/20 08:58 Dose: 200 mg Documented by: Famotidine (Famotidine 20 Mg Tablet) 20 mg PO QHS [facility] Ferrous Sulfate (Ferrous Sulfate 325 Mg Tablet) 325 mg PO TIDCM [facility] Last Admin: 08/11/20 08:58 Dose: 325 mg Documented by: Gabapentin (Gabapentin 600 Mg Tablet) 600 mg PO BID [facility] Last Admin: 08/11/20 08:58 Dose: 600 mg Documented by: Sodium Chloride () 1,000 mls @ 75 mls/hr IV .[id number] [facility] Last Admin: 08/11/20 01:13 Dose: 75 mls/hr Documented by: Ceftriaxone Sodium (Rocephin) 1 gm in 50 mls @ 100 mls/hr IV Q24H [facility] Isosorbide Mononitrate (Isosorbide Mononitrate 30 Mg Tablet) 30 mg PO DAILY [facility] Last Admin: 08/11/20 08:58 Dose: 30 mg Documented by: Levothyroxine Sodium (Levothyroxine 175 Mcg Tablet) 175 mcg PO DAILY [facility] Last Admin: 08/11/20 08:58 Dose: 175 mcg Documented by: Melatonin (Melatonin 3 Mg Tablet) 3 mg PO QHS PRN PRN PRN Reason: INSOMNIA Ondansetron HCl (Ondansetron 4 Mg/2 Ml Vial) 4 mg IV Q8H PRN PRN PRN Reason: NAUSEA/VOMITING Pantoprazole Sodium (Pantoprazole Sodium 40 Mg Tablet) 40 mg PO BID [facility] Last Admin: 08/11/20 08:57 Dose: 40 mg Documented by: Prednisone (Prednisone 20 Mg Tablet) 50 mg PO Q6H ROBERTO Stop: 08/11/20 20:01 Last Admin: 08/11/20 08:58 Dose: 50 mg Documented by: Sertraline HCl (Sertraline 100 Mg Tablet) 150 mg PO DAILY [facility] Last Admin: 08/11/20 08:56 Dose: 150 mg Documented by: Sodium Chloride (0.9% Saline Lock 10 Ml Syringe) 10 - 40 ml IV UD PRN PRN Reason: SALINE FLUSH Last Admin: 08/11/20 05:14 Dose: 10 ml Documented by: Tamsulosin HCl (Tamsulosin Hcl 0.4 Mg Capsule) 0.4 mg PO DAILY [facility] Last Admin: 08/11/20 08:58 Dose: 0.4 mg Documented by: STROKE Vital Signs/Narrative: Vital Signs Temp Pulse Resp BP Pulse Ox 08/11/20 08:50 98.6 F 78 20 H 142/60 H 94 Medical Necessity - Tobacco Use Smoking Status: Never smoker Assessment/Plan All Active Problems (Last Reviewed 08/11/20 @ 02:[address] Vick Gay MD) Acute kidney injury (Acute) 1. Acute hypoxic respiratory insufficiency with new pleural effusion/IDALIA -Unsure as to the source of his pleural effusion. Plan for drainage today we will send for laboratory studies to determine transudative versus exudative -Because of his pleural effusion the VQ scan will be unhelpful therefore this was discontinued and he was transitioned to have a CT of the chest. I do understand that he has an allergy to iodine and he was premedicated in the ER with 100 mg of hydrocortisone. We will give him 50 mg of prednisone every 6 as well as Benadryl and obtain a CTA as we do need to rule out the possibility of a PE. -Given his thoracentesis today we will hold off on therapeutic anticoagulation at the moment -Covid antigen and PCR were negative. Pleural effusion without patchy infiltrates is not normally seen with Covid -Baseline creatinine is around 0.7 and on admission it was 1.32 2. Paroxysmal A. fib/CAD status post CABG/HTN/HLD -He had an echo in January 2020 with an EF of 60% with moderate aortic stenosis -Depending what the fluid study shows right pleural effusion, need to have a repeat echo to rule out heart failure -We will continue blood pressure medications including Cardizem, Imdur -His IDALIA, will hold his lisinopril and his Lasix 3. DM 2 -He is insulin-dependent, will continue with his home insulin regimen and adjust as necessary -Accu-Cheks AC 4. Acute UTI -Urine cultures pending -Continue with Rocephin 5. Parkinson's disease -Disease appears to be stable at the moment -Continue with Sinemet and entacapone 6. Hypothyroidism -Stable -Continue with Synthroid 7. Anxiety/depression -Stable -Continue with Wellbutrin and Zoloft DVT: SCDs Inpatient E&M: 58613 Subs Hosp L2
--- NOTE | 2020-08-11 11:37 | CASEMGMT ---
Social Work Assessment Referral Date: 08/11/2020 Date of Assessment: 08/11/2020 Reason for consult: Pt recently left [facility] AMA Informant: JUNE WATKINS placed a call to Violette at [facility]. Violette confirms pt was at [facility] from 07/07/2020-07/30/2020 and pt left AMA and pt's friend Braydon transported pt home. Violette states pt admitted to [facility] from [facility]. JUNE reviewed chart, pt did discharge to [facility] when pt was at [facility] the last time. Personal Status: SW met with pt to complete initial assessment. SW introduced self and role at [facility]. Pt is alert to self, place, states it is July 09, 2020. Living Arrangements: Pt states he lives alone in a three story home. Pt states there are four steps to enter from the front and four steps to enter from the back. Pt states he mainly stays on one floor. DME: Pt state she has Cane, Walker, Wheelchair. States he normally doesn't wear oxygen at home. PCP: Pt states his PCP Dr. Crain through the [place] [facility]: [place] ALDs: Pt states he as independent with ADLs, states he doesn't drive. Pt states he doesn't do things by himself. SW asked pt if anyone has been helping him at home. Pt state my daughter has been helping me, but isn't staying with me. Per notes, pt's daughter had to stop coming due to COVID. Substance Abuse Hx: Pt denied Mental Health Hx: Pt states he has anxiety and depression. Pt denied any history or current suicidal thoughts/plans/ideations. HCPOA/LW: Pt states he has completed both HCPOA and LW. Pt states his oldest daughter Renay is HCPOA. SW spoke with pt regarding recent [facility] stay. Pt confirms it was his decision to leave [facility]. SW asked pt what led him to leave and pt states financials. Pt states he left [facility] 2-3 days ago and he was there for about 6 weeks. SW spoke with pt regarding discharge plans. Pt states he plans to discharge to [facility] where his daughter Christel works. Pt states Christel will handle getting him in to [facility]. SW asked pt if this worker could get initial referral sent and also if this worker could keep Christel updated and pt gave this worker permission to do so. JUNE placed a call to [facility] and spoke with Ana in admissions. Ana states she will review referral. Ana states she doesn't anticipate she will get pre-cert today or over the weekend as [facility] has been taking extremely slow with pre-certs. [facility] faxed referral. Plan: [facility] pending acceptance and pre-cert Angela Zaragoza TRAINING SYSTEMS OFFICER, AIR SUPPORT OPERATIONS OPERATOR
[2020-08-11 11:45] LABS: Bedside Glucose 113 mg/dL (70-110)
--- NOTE | 2020-08-11 13:30 | CASEMGMT ---
Addendum entered by Angela Zaragoza 08/11/20 14:25: JUNE received call from Ana at [facility] stating they are able to accept pt today, will get pre-cert started, but states pt's insurance will need updated notes on Friday. JUNE also placed a call to pt's daughter Renay, who is POA for pt, and updated her that plan is [facility] pending pre-cert. Renay states understanding. SW placed Green sheet, Transport form, COVID screening tool, HENS on pt's chart in the event pre-cert is obtained. Plan: [facility] pending pre-cert Angela AYERS, GUERITA Original Note: Social Work Note JUNE placed a call to pt's daughter Christel and updated her that pt is agreeable to [facility] and this worker has faxed referral. JUNE updated Christel that pt will need pre-cert and if pre-cert is not obtained today, pt will likely be at [facility] through the weekend. Christel states understanding. Plan: [facility] pending pre-cert Angela AYERS, SIGHTER
--- NOTE | 2020-08-11 14:10 | RAD_ITS ---
STUDY: X-RAY CHEST REASON FOR EXAM: Male, 75 years old. POST THORACENTESIS TECHNIQUE: AP inspiration and expiration views. COMPARISON: Comparison is made with prior examination dated 08/10/2020. FINDINGS: The patient is status post right thoracentesis. There is no evidence of pneumothorax. Residual blunting of the right costophrenic angle. Stable pleural parenchymal changes at the left lung base. RAD/Chest Insp/Exp 2 View IMPRESSION: Status post right thoracentesis. There is no evidence of pneumothorax. Electronically Signed: Charles Steen, at 14:40 EST , Service support ,
[2020-08-11 14:46] LABS: Body Fluid Mononuclear WBC # 0.152 10^3/uL; Body Fluid Mononuclear WBC % 80.9 %; Body Fluid Polynuclear WBC # 0.036 10^3/uL; Body Fluid Polynuclear WBC % 19.1 %; Body Fluid Total Cells Counted 0.217 10^3/ul; White Blood Count/Body Fluid 0.188 10^3/uL
[2020-08-11 14:53] LABS: Auto B Fluid Analyzer BKGD Ct COUNTS W/IN LIMITS (W/IN LIMITS); Color/Body Fluid LT YEL; Source- Body Fluid THORACENTESIS
[2020-08-11 14:54] LABS: Appearance/Body Fluid CLEAR
[2020-08-11 15:12] LABS: Mesothelial Cells 1 %; Monocytes 54 %
[2020-08-11 15:13] LABS: Body Fluid QC Type(s) BF1Q; Lymphocytes 29 %; Neutrophil (Segs) 16 %
[2020-08-11 15:42] LABS: Red Cell Count/Body Fluid 188 /mm3
[2020-08-11 15:49] LABS: Glucose, Body Fluid 115 mg/dL (40-70); LDH,Body Fluid 85 Units/l (Not Establ.); Protein, Body Fluid 2.5 g/dL (Not Establ.)
[2020-08-11 17:16] LABS: Bedside Glucose 146 mg/dL (70-110)
[2020-08-11] MEDS: DiphenhydrAMINE 25 MG Capsule 50 MG PO (20:12)
[2020-08-11] MEDS: Atorvastatin Calcium 20 MG Tablet PO (20:14)
[2020-08-11] MEDS: Famotidine 20 MG Tablet PO (20:16)
--- NOTE | 2020-08-11 21:00 | CT_ITS ---
STUDY: CTA CHEST REASON FOR EXAM: Male, 75 years old. Possible PE. Elevated d-dimer. History of CABG procedure Parkinson''s disease and cardiac pacemaker. RADIATION DOSAGE (If Supplied By Facility): CTDIvol = ( 12.67 ) mGy, DLP = ( 511.26 ) mGycm TECHNIQUE: The examination was performed with the intravenous administration of IV 100mL Isovue-370. Post-processing of the angiographic images was performed, with multiplanar reformation and 3D reconstruction. Individualized dose optimization techniques were used for this CT. COMPARISON: Chest, 08/11/2020. FINDINGS: Normal enhancement of the main pulmonary artery and right and left pulmonary arteries. Normal enhancement of the bilateral peripheral pulmonary arteries. There is no demonstrated pulmonary embolism. Atherosclerotic changes of the thoracic aorta without aneurysm. There is no demonstrated aortic dissection. The heart is normal size. Normal pericardium. There is evidence of CABG procedure. Pacer leads are seen in the right heart. Normal mediastinum. Normal hilar regions. Normal visualized trachea and bronchi. The lungs are well expanded. There are patchy groundglass infiltrates in the upper lobes. There are moderately large bilateral pleural effusions with bibasilar atelectasis. Cardiac pacemaker generator is seen in the soft tissues of the right upper chest wall. There is mild anasarca all the soft tissues of the lower chest and abdomen extending into the flanks. There are degenerative changes of thoracic spine. Normal visualized upper abdomen. CT/CTA Chest W/WO Contrast IMPRESSION: 1. No evidence of pulmonary embolus. 2. No aortic dissection or aneurysm. 3. Evidence of CABG procedure and cardiac pacemaker. The heart is normal in size. 4. Moderate to large bilateral pleural effusions with atelectasis at the lung bases. 5. Patchy peripheral groundglass infiltrates in the upper lobes. 6. Degenerative changes of the thoracic spine. Electronically Signed: Edenilson Zhou DO at 21:38 EST Tel [phone], Service support ,
[2020-08-11] MEDS: Ceftriaxone 1 GM/50 ML BAG IV (22:44)
[2020-08-11 23:01] LABS: Bedside Glucose 204 mg/dL (70-110)
[2020-08-12] VITALS (12 sets, daily range): BP systolic 134–145; BP diastolic 48–68; PULSE 71–89; RESP 18–22; TEMP 36.3–36.8; O2SAT 88–99
[2020-08-12] MEDS: 0.9% Saline Lock 10 ML Syringe IV ×4 (05:30→21:58)
[2020-08-12 06:31] LABS: Bedside Glucose 201 mg/dL (70-110)
[2020-08-12] MEDS: Ipratropium/Albuterol Sulfate 3 ML AMPUL.NEB INHALATION ×3 (07:22→19:43)
[2020-08-12 08:07] LABS: Absolute Lymphocyte Count 0.23 X10^3/uL (0.83-4.51); Absolute Neutrophil Count 6.9 X10^3/uL (2.0-7.7); Hematocrit 31.4 % (40-54); Hemoglobin 9.7 g/dL (13.0-16.5); Lymphocyte # 0.23 X10^3/ul (4.0); Lymphocyte % 3.1 % (19-41); Mean Corp Hgb Conc 30.9 g/dL (32-36); Mean Corpuscular Volume 87.5 fL (80-94); Mean Platelet Vol. 8.8 fl (6.2-12.0); Monocyte# 0.15 X10^3/uL; NRBC Flagged by Analyzer 0 % (0-5); Neutrophil # 6.88 X10^3/uL (2.7-7.7); Neutrophil % 94.1 % (47-70); POSITIVE DIFFERENTIAL YES; Platelet Count 397 K/mm3 (150-450); RBC Distribution Width CV 18.4 % (11.6-14.6); RBC Distribution Width SD 58.8 fl (35.1-43.9); Red Blood Count 3.59 M/mm3 (4.6-6.2); White Blood Count 7.3 K/mm3 (4.4-11.0)
[2020-08-12 08:23] LABS: Differential Indicated SCAN CRITERIA MET
[2020-08-12 08:30] LABS: Anion Gap 8 (5-15); BUN 40 mg/dL (7-18); Calcium,Total 8.7 mg/dL (8.5-10.1); Chloride 114 mmol/L (98-107); Creatinine, Serum 1.11 mg/dL (0.70-1.30); EST Glomerular Filtration Rate 68 mL/min (>60); Est Glom Filt Rate - Afr Amer 83 mL/min (>60); Estimated Creatinine Clearance 47.41 ml/min; Glucose 203 mg/dL (74-106); Potassium 5.7 mmol/L (3.5-5.1); Sodium Level 139 mmol/L (136-145)
[2020-08-12 09:24] LABS: Differential Comment SCANNED
--- NOTE | 2020-08-12 10:20 | PCM.CONS.PUL ---
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 transplanted heart: rosebud heart Qualified Code(s): I25.10 - Atherosclerotic heart disease of rosebud coronary artery without angina pectoris Comment: CABG x4- MONTERO to LAD, EPIFANIO to the Distal RCA, Right Radial Artery to the OM branch of CX, and Reverse SVG from the aorta to the Distal RCA 08/17/01 (8) Aortocoronary bypass status Status: Chronic Comment: CABG x4- MONTERO to LAD, EPIFANIO to the Distal RCA, Right Radial Artery to the OM branch of CX, and Reverse SVG from the aorta to the Distal RCA 08/17/01 (9) Implantable cardioverter-defibrillator (ICD) in situ Status: Chronic (10) Type 2 diabetes mellitus Status: Chronic Qualifiers: Diabetes mellitus fci insulin use: with superintendent [employer] use Diabetes mellitus complication status: without complication Qualified Code(s): E11.9 - Type 2 diabetes mellitus without complications; Z79.4 - FCI (current) use of insulin Reason for Consult Date of Consultation: 08/12/20 Reason for Consultation: Pleural effusion History of Present Illness: The patient is a 75 year old M, with past medical history listed below, who presented to [facility] [place] on 08/10/2020 secondary to weakness and falls. Patient reportedly has fallen multiple times this month and typically has his daughter to help him at home. However, she has tested positive for COVID-19 and is been quarantining at home, so patient does not have the same assistance he is used to. Patient reportedly uses a walker and wheelchair at home. Patient denies any head trauma associated with his falls and is not on any anticoagulation. Patient reportedly was at the [facility] previously, but signed out AMA. In the ER, patient was noted to be hypoxic requiring 2 L nasal cannula to maintain saturations. Imaging studies were relatively unremarkable except for a right greater than left pleural effusion on chest x-ray. Laboratory work-up showed a normal white blood cell count of 7.4 with a hemoglobin of 9.3. D-dimer was elevated at 2.65 and creatinine was slightly elevated at 1.32. Troponins were negative and BNP was slightly elevated at 221. Procalcitonin was negative, along with COVID-19. Given patient's lack of support at home and new need for oxygen, patient was admitted to the floor for further evaluation. Patient did receive IV fluids in the ER secondary to his reported acute kidney injury. Since being on the floor, patient did have a thoracentesis yesterday. A repeat CT scan of the chest showed scattered groundglass and crazy paving pattern with a residual left-sided pleural effusion. Laboratory evaluation of thoracentesis was suggestive of a transudate pathology. Pulmonary was consulted for recommendations on abnormal CT scan. Patient does report a 24+ pack year smoking history, but has not seen a food assembler kitchen in the past. Patient states he has had a pulmonary function test completed at the [facility], but was unclear as to the results. Patient does not normally use inhalers at baseline. Patient states that he does have supplemental oxygen that he wears with sleep, but thinks this is related to his heart. Patient is not a very good informant and states that he has been more confused. When asked about shortness of breath, patient states this has been progressing over the last year, but the main reason for coming in was a lack of support and falls at home. Review of systems otherwise negative from a constitutional, HEENT, respiratory, cardiovascular, GI, genitourinary, musculoskeletal, skin, neurologic, psychiatric and hematologic system unless stated above. Past Medical History Past Medical History (Chronic Problems): Chronic Problems (Last Reviewed 08/11/20 @ 02:[address] Vick Gay MD) Seizure (Chronic) Parkinsons (Chronic) Acute on chronic anemia (Chronic) Implantable cardioverter-defibrillator (ICD) at end of battery life (Chronic) Nonrheumatic aortic (valve) stenosis (Chronic) Paroxysmal atrial fibrillation (Chronic) Essential hypertension (Chronic) Atherosclerotic heart disease of rosebud coronary artery without angina pectoris (Chronic) CABG x4- MONTERO to LAD, EPIFANIO to the Distal RCA, Right Radial Artery to the OM branch of CX, and Reverse SVG from the aorta to the Distal RCA 08/17/01 Aortocoronary bypass status (Chronic ~08/17/01) CABG x4- MONTERO to LAD, EPIFANIO to the Distal RCA, Right Radial Artery to the OM branch of CX, and Reverse SVG from the aorta to the Distal RCA 08/17/01 Hyperlipidemia (Chronic) Carotid bruit (Chronic) Long-term use of high-risk medication (Chronic) Paroxysmal ventricular tachycardia (Chronic) Implantable cardioverter-defibrillator (ICD) in situ (Chronic ~10/23/11) Type 2 diabetes mellitus (Chronic) Medical History: Medical History (Last Reviewed 08/11/20 @ 02:[address] Vick Gay MD) Nonrheumatic aortic (valve) stenosis (Chronic) I35.0 Paroxysmal atrial fibrillation (Chronic) I48.0 Essential hypertension (Chronic) I10 Atherosclerotic heart disease of rosebud coronary artery without angina pectoris (Chronic) I25.10 CABG x4- MONTERO to LAD, EPIFANIO to the Distal RCA, Right Radial Artery to the OM branch of CX, and Reverse SVG from the aorta to the Distal RCA 08/17/01 Hyperlipidemia (Chronic) E78.5 Carotid bruit (Chronic) R09.89 Long-term use of high-risk medication (Chronic) Z79.899 Paroxysmal ventricular tachycardia (Chronic) I47.2 Type 2 diabetes mellitus (Chronic) E11.9 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 Parkinsons disease G20 Atrial flutter (Inactive) I48.92 Hypertension (Inactive) I10 Allergies Iodine and Iodide Containing Produc Allergy (Verified 07/21/20 09:39) Shortness of breath simvastatin Adverse Reaction (Verified 07/21/20 09:39) Other Home Medications: Ambulatory Orders Medication Instructions Recorded Atorvastatin Calcium [Lipitor] 20 mg PO QHS 09/27/14 Diltiazem HCl [Diltiazem 24Hr ER 180 mg PO DAILY 09/27/14 (Cd)] Lisinopril [Zestril] 5 mg PO DAILY 09/27/14 buPROPion tablets [Wellbutrin 150 mg PO DAILY 09/27/14 tablets] carbidopa 25 mg-levodopa 250 mg 1 tab PO 4X/DAY tab 01/12/18 tablet gabapentin 600 mg tablet 600 mg PO BID 01/12/18 calcium citrate 315 mg 1 tab PO DAILY 10/22/18 calcium-vitamin D3 6.25 mcg (250 unit) tablet ferrous sulfate 325 mg (65 mg 325 mg PO TID tab 10/22/18 iron) tablet isosorbide mononitrate 60 mg 30 mg PO DAILY tab 10/22/18 tablet,extended release 24 hr sertraline 100 mg tablet 150 mg PO DAILY tab 10/22/18 Ascorbic Acid [Vitamin C] 500 mg PO DAILY 02/07/20 Entacapone [Comtan] 200 mg PO 4X/DAY 02/07/20 Famotidine 20 mg PO QHS 02/07/20 Omeprazole 40 mg PO BID 02/07/20 Cyanocobalamin [Vitamin B12] 1,000 mcg PO DAILY@0800 06/01/20 Furosemide [Lasix] 20 mg PO BID 08/10/20 Insulin Aspart [Novolog Flexpen See Protocol SC ACHS 08/10/20 ([facility])] Insulin Glargine,Hum.rec.anlog 25 unit SQ QHS 08/10/20 [Lantus Solostar] Ipratropium/Albuterol Respimat 1 puff INHALATION 4X/DAY 08/10/20 [Combivent Respimat Inhal [place]] Levothyroxine Sodium [Synthroid] 175 mcg PO DAILY 08/10/20 Potassium Chloride [K-Dur] 20 meq PO DAILY 08/10/20 Tamsulosin HCl [Flomax] 0.4 mg PO DAILY@0800 08/10/20 Surgical History: Surgical History (Last Reviewed 08/11/20 @ 01:[address] Vick Gay MD) Aortocoronary bypass status (Chronic) Onset Date: ~08/17/01 Z95.1 CABG x4- MONTERO to LAD, EPIFANIO to the Distal RCA, Right Radial Artery to the OM branch of CX, and Reverse SVG from the aorta to the Distal RCA 08/17/01 Implantable cardioverter-defibrillator (ICD) in situ (Chronic) Onset Date: ~10/23/11 Z95.810 History of appendectomy Z90.49 History of cardiac radiofrequency ablation Onset Date: ~06/2003 Z98.890 History of orchiectomy, unilateral Z90.79 History of tonsillectomy Z90.89 Surgical History: coronary bypass surgery, - - Unilateral orchiectomy, appendectomy, tonsillectomy, CABG x4, RFA, ICD placement. Psychiatric History: No pertinent psych hx Lives: Alone Smoking Status: Never smoker Alcohol: None Drugs: None - *Family History Maternal Family History: Family History (Last Reviewed 08/11/20 @ 01:[address] Vick Gay MD) Father CAD (coronary artery disease) Myocardial infarction Mother CAD (coronary artery disease) Sister Diabetes Sister CAD (coronary artery disease) Hx of CABG History Items: High Cholesterol, Heart Disease, Hypertension Paternal Family History: Family History (Last Reviewed 08/11/20 @ 01:[address] Vick Gay MD) Father CAD (coronary artery disease) Myocardial infarction Mother CAD (coronary artery disease) Sister Diabetes Sister CAD (coronary artery disease) Hx of CABG History Items: High Cholesterol, Heart Disease, Hypertension Review of Systems Comment: See HPI Patient Problems: Active and Suspected Problems (Last Reviewed 08/11/20 @ 02:[address] Vick Gay MD) Acute kidney injury (Acute) Objective: All imaging was personally reviewed. CT was as described in HPI. Patient's last echocardiogram was completed in January 2020 showing an EF of 60% with moderate focal aortic valve calcification with a peak gradient of 40 mmHg. Unable to quantify pulmonary artery pressures. Patient does not have any pulmonary function test available for review. - Physical Exam Vitals/I&O's: Vital Signs Temp Pulse Resp BP Pulse Ox 36.6 C 86 22 H 145/59 H 92 08/12/20 05:31 08/12/20 07:22 08/12/20 07:22 08/12/20 05:31 08/12/20 07:22 Oxygen Flow Rate (L/min) [4] 2 Oxygen Flow Rate (L/min) [3] 2 Oxygen Flow Rate (L/min) [2] 2 Oxygen Flow Rate (L/min) [1 ( 2 Initial Baseline)] Oxygen Flow Rate (L/min) 2 Oxygen Delivery Method [4] Room Air Oxygen Delivery Method [3] Room Air Oxygen Delivery Method [2] Nasal Cannula Oxygen Delivery Method [1 ( Nasal Cannula Initial Baseline)] Oxygen Delivery Method Nasal Cannula Weight: 78.1 kg Body Mass Index (BMI) 30.4 Finger Stick Blood Glucose 151 Intake and Output for Last 24 Hours 08/10/20 08/11/20 08/12/20 23:59 23:59 23:59 Intake Total 550 / 550 1581.25 / 2281.25 700 / 700 Output Total 2300 / 2300 250 / 250 Balance 550 / 550 -718.75 / -18.75 450 / 450 General: Alert, Oriented x3, Cooperative, No apparent distress - On nasal cannula, - - Difficulty with more specific questions then orientation HEENT: PERRLA, EOMI, Normocephalic, - - Scleral injection without icterus. Various bruising noted. Oral: Moist Mucosa, No Gingival or Mucosal Lesions/ Ulcerations Neck: Supple, No Nodes, Trachea Midline, JVD, Right Lungs: No rhonchi, No wheeze, Diminished, Rales - Right greater than left base, - - Dullness to percussion at the left base Cardiovascular: Regular rate, Regular Rhythm, Normal S1, Normal S2, Murmur - Grade 3 out of 6 systolic ejection murmur at the apex, No rub noted, No Gallop Abdomen: Bowel Sounds Present, Soft, Non Tender, Non-Distended, Obese Extremities: No clubbing, No cyanosis, No edema Skin: - - Dermal atrophy. Multiple areas of bruising at various stages of healing Musculoskeletal: Arthritic Changes Lymphatic: No Cervical, Supraclavicular, or Inguinal Adenopathy Neurological: Cranial nerves II-XII grossly intact, Neuro grossly intact, Motor Exam 5/5 strength throughout, - - Gait not tested. Some cogwheeling noted of the upper extremities Psych/Mental Status: Appropriate, Flat Affect Microbiology Past 72 Hours 08/10/20 17:50 Mucosa - Nose SARS-CoV-2 Antigen (Rapid) - Final Laboratory Results 08/11/20 11:37: POC Glucose 113 H 08/11/20 17:09: POC Glucose 146 H 08/11/20 22:53: POC Glucose 204 H 08/11/20 : Fluid Glucose 115 H, Fluid Total Protein 2.5, Fluid LDH 85 08/11/20 : Fluid Source THORACENTESIS, Fluid Color LT YEL, Fluid Appearance CLEAR, Fluid WBC 0.188, Fluid RBC 188, Fluid Tot Cell Count 0.217, Fld Polynuclear WBCs # 0.036, Fld Polynuclear WBCs % 19.1, Fluid Mononuclear WBCs 0.152, Fld Mononuclear WBCs % 80.9, Fluid Neutrophils 16, Fluid Lymphocytes 29, Fluid Monocytes 54, Fld Mesothelial Cells 1, Fl Pathologist Comment May follow, Fluid Comment 2 SEE COMMENT 08/12/20 06:26: POC Glucose 201 H 08/12/20 07:35: WBC 7.3, RBC 3.59 L, Hgb 9.7 L, Hct 31.4 L, MCV 87.5, MCH 27.0, MCHC 30.9 L, RDW Std Deviation 58.8 H, RDW Coeff of Mat 18.4 H, Plt Count 397, MPV 8.8, Immature Gran % (Auto) 0.800, Neut % (Auto) 94.1 H, Lymph % (Auto) 3.1 L, Pender % (Auto) 2.0, Eos % (Auto) 0.0, Baso % (Auto) 0.0, Absolute Neuts (auto) 6.9, Absolute Lymphs (auto) 0.23 L, Nucleated RBC % 0, Differential Comment SCANNED 08/12/20 07:35: Sodium 139, Potassium 5.7 H, Chloride 114 H, Carbon Dioxide 17.0 L, Anion Gap 8, BUN 40 H, Creatinine 1.11, Estim Creat Clear Calc 47.41, Est GFR (MDRD) Af Amer 83, Est GFR (MDRD) Non-Af 68, BUN/Creatinine Ratio 36.0 H, Glucose 203 H, Calcium 8.7 Current Medications Albuterol Sulfate (Albuterol 2.5 Mg/3 Ml Vial.Neb.) 2.5 mg INHALATION Q2H PRN PRN PRN Reason: SOB/Wheezing Albuterol/Ipratropium (Ipratropium/Albuterol Sulfate 3 Ml Ampul.Neb) 3 ml INHALATION Q6HWA.RT ROBERTO Last Admin: 08/12/20 07:22 Dose: 3 ml Documented by: Ascorbic Acid (Ascorbic Acid 500 Mg Tablet) 500 mg PO DAILY ROBERTO Last Admin: 08/11/20 08:58 Dose: 500 mg Documented by: Atorvastatin Calcium (Atorvastatin Calcium 20 Mg Tablet) 20 mg PO QHS ROBERTO Last Admin: 08/11/20 20:14 Dose: 20 mg Documented by: Bupropion HCl (Bupropion (Xl) 150 Mg Tablet.Xl) 150 mg PO DAILY [facility] Last Admin: 08/11/20 08:58 Dose: 150 mg Documented by: Calamine/Phenol (Menthol/Lanolin/Calamine/Znox 113 Gm Tube) 1 applic TOPICAL BID ROBERTO; Protocol Last Admin: 08/11/20 20:14 Dose: 1 applicatio Documented by: Calcium/Vitamin D (Calcium Carb/Vitamin D 1 Tablet Tablet) 1 tablet PO DAILY [facility] Last Admin: 08/11/20 08:57 Dose: 1 tablet Documented by: Carbidopa/Levodopa (Carbidopa/Levodopa 25/250 Tablet) 1 tablet PO 4X/DAY [facility] Last Admin: 08/11/20 20:16 Dose: 1 tablet Documented by: Cyanocobalamin (Cyanocobalamin 500 Mcg Tablet) 1,000 mcg PO DAILY [facility] Last Admin: 08/11/20 08:57 Dose: 1,000 mcg Documented by: Diltiazem HCl (Diltiazem Cd 180 Mg Capsule) 180 mg PO DAILY [facility] Last Admin: 08/11/20 08:58 Dose: 180 mg Documented by: Entacapone (Entacapone 200 Mg Tablet) 200 mg PO 4X/DAY [facility] Last Admin: 08/11/20 20:14 Dose: 200 mg Documented by: Famotidine (Famotidine 20 Mg Tablet) 20 mg PO QHS [facility] Last Admin: 08/11/20 20:16 Dose: 20 mg Documented by: Ferrous Sulfate (Ferrous Sulfate 325 Mg Tablet) 325 mg PO TIDCM [facility] Last Admin: 08/11/20 17:11 Dose: 325 mg Documented by: Furosemide (Furosemide 20 Mg/2 Ml Vial) 20 mg IV BID@1000,1800 [facility] Gabapentin (Gabapentin 600 Mg Tablet) 600 mg PO BID [facility] Last Admin: 08/11/20 20:15 Dose: 600 mg Documented by: Ceftriaxone Sodium (Rocephin) 1 gm in 50 mls @ 100 mls/hr IV Q24H [facility] Last Infusion: 08/11/20 23:20 Dose: Infused Documented by: Isosorbide Mononitrate (Isosorbide Mononitrate 30 Mg Tablet) 30 mg PO DAILY [facility] Last Admin: 08/11/20 08:58 Dose: 30 mg Documented by: Levothyroxine Sodium (Levothyroxine 175 Mcg Tablet) 175 mcg PO DAILY [facility] Last Admin: 08/11/20 08:58 Dose: 175 mcg Documented by: Melatonin (Melatonin 3 Mg Tablet) 3 mg PO QHS PRN PRN PRN Reason: INSOMNIA Ondansetron HCl (Ondansetron 4 Mg/2 Ml Vial) 4 mg IV Q8H PRN PRN PRN Reason: NAUSEA/VOMITING Pantoprazole Sodium (Pantoprazole Sodium 40 Mg Tablet) 40 mg PO BID [facility] Last Admin: 08/11/20 20:17 Dose: 40 mg Documented by: Sertraline HCl (Sertraline 100 Mg Tablet) 150 mg PO DAILY [facility] Last Admin: 08/11/20 08:56 Dose: 150 mg Documented by: Sodium Chloride (0.9% Saline Lock 10 Ml Syringe) 10 - 40 ml IV UD PRN PRN Reason: SALINE FLUSH Last Admin: 08/12/20 05:30 Dose: 10 ml Documented by: Tamsulosin HCl (Tamsulosin Hcl 0.4 Mg Capsule) 0.4 mg PO DAILY [facility] Last Admin: 08/11/20 08:58 Dose: 0.4 mg Documented by: Clinical Impression(s) from Imaging Studies Brain CT 08/10/20 17:25 IMPRESSION: No acute intracranial and calvarial abnormality. There is no interval change. Electronically Signed: Edenilson Zhou DO at 18:50 EST Tel [phone], Service support , Cervical Spine CT 08/10/20 17:33 IMPRESSION: Degenerative changes of the cervical spine without acute fracture or subluxation. The findings are similar to the previous study. Electronically Signed: Edenilson Zhou DO at 18:54 EST Tel [phone], Service support , Chest X-Ray 08/10/20 18:23 IMPRESSION: Right pleural effusion and atelectasis not previously noted. The findings are otherwise unchanged. Electronically Signed: Edenilson Zhou DO at 18:40 EST Tel [phone], Service support , Thoracentesis Ultrasound 08/11/20 00:32 IMPRESSION: Ultrasound-guided right thoracentesis. Electronically Signed: Charles Steen, at 14:34 EST , Service support , Chest X-Ray 08/11/20 14:10 IMPRESSION: Status post right thoracentesis. There is no evidence of pneumothorax. Electronically Signed: Charles Broradhikacourt, at 14:40 EST , Service support , Chest CTA 08/11/20 21:00 IMPRESSION: 1. No evidence of pulmonary embolus. 2. No aortic dissection or aneurysm. 3. Evidence of CABG procedure and cardiac pacemaker. The heart is normal in size. 4. Moderate to large bilateral pleural effusions with atelectasis at the lung bases. 5. Patchy peripheral groundglass infiltrates in the upper lobes. 6. Degenerative changes of the thoracic spine. Electronically Signed: Edenilson Zhou, at 21:38 EST Tel [phone], Service support , Assessment/Plan All Active Problems (Last Reviewed 08/11/20 @ 02:[address] Vick Gay MD) Acute kidney injury (Acute) RECOMMENDATIONS: 1. Schedule diuresis 2. Wean oxygen as tolerated 3. Okay to continue antibiotics pending culture results, but low clinical suspicion of sepsis 4. Walking oximetry prior to discharge 5. Outpatient complete pulmonary function test IMPRESSIONS: 1. Acute hypoxic respiratory insufficiency Clinical suspicion for multifactorial etiology. Patient does have bilateral pleural effusions, but thoracentesis is suggestive of a transudate physiology. This would be most compatible with congestive heart failure through the clinical scenario. However, patient does have an extensive smoking history with emphysematous changes, so undiagnosed COPD is likely also present. It is unclear if this is truly an exacerbation as patient does not have a lot of wheezing on exam. Would hold off on a repeat thoracentesis. Patient likely has an element of pulmonary hypertension, but was unable to visualize on echocardiogram. Patient does have pulmonary hypertension, anticipate rapid drop in oxygenation with ambulation. Patient should have a walking oximetry prior to discharge. Low clinical suspicion for active infection of the lungs, but UTI cannot be excluded, so reasonable to continue with antibiotics until cultures are available. 2. Acute on chronic diastolic CHF/CAD status post CABG/paroxysmal A. fib/hypertension/hyperlipidemia Defer to hospitalist service on whether cardiology needs to be consulted. Patient likely would benefit from diuresis. Agree with continuation of baseline medications. Reasonable to hold lisinopril while actively diuresing. Would continue with Cardizem for rate control. 3. Diabetes mellitus type 2 Patient insulin-dependent. May need to adjust sliding scale in the interim given recent steroids. Given diabetes with insulin dependence, would not empirically place on prednisone unless patient were to develop wheezing on exam. If patient develops wheezing, initiation of Pulmicort aerosols may have less effects on hyperglycemia. 4. Possible UTI/Parkinson's disease/hypothyroidism/anxiety/depression/multiple falls Complicates care, management, recovery and prognosis. Patient's procalcitonin was low, so if culture of urine is negative, discontinuation of antibiotics is likely reasonable. Okay to continue with other baseline medications from my perspective. Patient would benefit from physical and occupational therapy given recurrent falls. Inpatient E&M: 17446 Init Hosp L3
[2020-08-12] MEDS: Ferrous Sulfate 325 MG Tablet PO ×3 (10:33→17:24)
[2020-08-12] MEDS: Menthol/Lanolin/Calamine/Znox 113 GM Tube 1 APPLIC TOPICAL ×2 (10:33→22:00)
[2020-08-12] MEDS: dilTIAZem CD 180 MG Capsule PO (10:33)
[2020-08-12] MEDS: Tamsulosin HCl 0.4 MG Capsule PO (10:35)
[2020-08-12] MEDS: Gabapentin 600 MG Tablet PO ×2 (10:35→22:04)
[2020-08-12] MEDS: Calcium Carb/Vitamin D 1 TABLET Tablet PO (10:35)
[2020-08-12] MEDS: Isosorbide Mononitrate 30 MG Tablet PO (10:35)
[2020-08-12] MEDS: Levothyroxine 175 MCG Tablet PO (10:36)
[2020-08-12] MEDS: Pantoprazole Sodium 40 MG Tablet PO ×2 (10:36→22:06)
[2020-08-12] MEDS: Carbidopa/Levodopa 25/250 Tablet PO ×4 (10:36→22:10)
[2020-08-12] MEDS: Ascorbic Acid 500 MG Tablet PO (10:36)
[2020-08-12] MEDS: Cyanocobalamin 500 MCG Tablet 1000 MCG PO (10:37)
[2020-08-12] MEDS: Sertraline 100 MG Tablet 150 MG PO (10:38)
[2020-08-12] MEDS: buPROPion (XL) 150 MG TABLET.XL PO (10:39)
[2020-08-12] MEDS: Furosemide 20 MG/2 ML VIAL IV ×2 (10:42→17:25)
[2020-08-12 11:50] LABS: Bedside Glucose 309 mg/dL (70-110)
--- NOTE | 2020-08-12 12:32 | PCM.PN.HOSP ---
Patient Problems: Active and Suspected Problems (Last Reviewed 08/11/20 @ 02:[address] Vick Gay MD) Acute kidney injury (Acute) Subjective: Feels stable, breathing a little bit easier after the thoracentesis. No issues overnight. Appreciate pulmonology assistance. Vitals/I&O's: Vital Signs Temp Pulse Resp BP Pulse Ox 98.3 F 89 20 H 134/48 H 99 08/12/20 10:25 08/12/20 10:25 08/12/20 10:25 08/12/20 10:25 08/12/20 10:25 Oxygen Flow Rate (L/min) [4] 2 Oxygen Flow Rate (L/min) [3] 2 Oxygen Flow Rate (L/min) [2] 2 Oxygen Flow Rate (L/min) [1 ( 2 Initial Baseline)] Oxygen Flow Rate (L/min) 2 Oxygen Delivery Method [4] Room Air Oxygen Delivery Method [3] Room Air Oxygen Delivery Method [2] Nasal Cannula Oxygen Delivery Method [1 ( Nasal Cannula Initial Baseline)] Oxygen Delivery Method Nasal Cannula Weight: 172 lb 2.896 oz Body Mass Index (BMI) 30.4 Finger Stick Blood Glucose 151 Intake and Output for Last 24 Hours 08/10/20 08/11/20 08/12/20 23:59 23:59 23:59 Intake Total 550 / 550 1581.25 / 2281.25 700 / 700 Output Total 2300 / 2300 250 / 250 Balance 550 / 550 -718.75 / -18.75 450 / 450 General: Alert, Oriented x3, Cooperative, No apparent distress HEENT: Atraumatic, PERRLA, EOMI, Normocephalic Oral: Moist Mucosa Neck: Supple, No JVD Lungs: Normal air movement, Diminished more on the left than on the right. Some mild Rales on the right base Cardiovascular: Regular rate, Regular Rhythm, Normal S1, Normal S2, Murmur Abdomen: Soft, Non Tender, Non-Distended, No Hepato-splenomegaly Extremities: No edema, Capillary Refill Less than 3 Seconds Skin: No rashes, No breakdown Neurological: Neuro grossly intact, Sensory exam intact to light touch and pain, - - Chronic tremor from Parkinson's Psych/Mental Status: Normal Affect, Appropriate Microbiology Past 72 Hours 08/10/20 17:50 Mucosa - Nose SARS-CoV-2 Antigen (Rapid) - Final Laboratory Results 08/11/20 17:09: POC Glucose 146 H 08/11/20 22:53: POC Glucose 204 H 08/11/20 : Fluid Glucose 115 H, Fluid Total Protein 2.5, Fluid LDH 85 08/11/20 : Fluid Source THORACENTESIS, Fluid Color LT YEL, Fluid Appearance CLEAR, Fluid WBC 0.188, Fluid RBC 188, Fluid Tot Cell Count 0.217, Fld Polynuclear WBCs # 0.036, Fld Polynuclear WBCs % 19.1, Fluid Mononuclear WBCs 0.152, Fld Mononuclear WBCs % 80.9, Fluid Neutrophils 16, Fluid Lymphocytes 29, Fluid Monocytes 54, Fld Mesothelial Cells 1, Fl Pathologist Comment May follow, Fluid Comment 2 SEE COMMENT 08/12/20 06:26: POC Glucose 201 H 08/12/20 07:35: WBC 7.3, RBC 3.59 L, Hgb 9.7 L, Hct 31.4 L, MCV 87.5, MCH 27.0, MCHC 30.9 L, RDW Std Deviation 58.8 H, RDW Coeff of Mat 18.4 H, Plt Count 397, MPV 8.8, Immature Gran % (Auto) 0.800, Neut % (Auto) 94.1 H, Lymph % (Auto) 3.1 L, [facility] % (Auto) 2.0, Eos % (Auto) 0.0, Baso % (Auto) 0.0, Absolute Neuts (auto) 6.9, Absolute Lymphs (auto) 0.23 L, Nucleated RBC % 0, Differential Comment SCANNED 08/12/20 07:35: Sodium 139, Potassium 5.7 H, Chloride 114 H, Carbon Dioxide 17.0 L, Anion Gap 8, BUN 40 H, Creatinine 1.11, Estim Creat Clear Calc 47.41, Est GFR (MDRD) Af Amer 83, Est GFR (MDRD) Non-Af 68, BUN/Creatinine Ratio 36.0 H, Glucose 203 H, Calcium 8.7 08/12/20 11:45: POC Glucose 309 H Current Medications Albuterol Sulfate (Albuterol 2.5 Mg/3 Ml Vial.Neb.) 2.5 mg INHALATION Q2H PRN PRN PRN Reason: SOB/Wheezing Albuterol/Ipratropium (Ipratropium/Albuterol Sulfate 3 Ml Ampul.Neb) 3 ml INHALATION Q6HWA.RT [facility] Last Admin: 08/12/20 07:22 Dose: 3 ml Documented by: Ascorbic Acid (Ascorbic Acid 500 Mg Tablet) 500 mg PO DAILY [facility] Last Admin: 08/12/20 10:36 Dose: 500 mg Documented by: Atorvastatin Calcium (Atorvastatin Calcium 20 Mg Tablet) 20 mg PO QHS [facility] Last Admin: 08/11/20 20:14 Dose: 20 mg Documented by: Bupropion HCl (Bupropion (Xl) 150 Mg Tablet.Xl) 150 mg PO DAILY [facility] Last Admin: 08/12/20 10:39 Dose: 150 mg Documented by: Calamine/Phenol (Menthol/Lanolin/Calamine/Znox 113 Gm Tube) 1 applic TOPICAL BID [facility]; Protocol Last Admin: 08/12/20 10:33 Dose: 1 applicatio Documented by: Calcium/Vitamin D (Calcium Carb/Vitamin D 1 Tablet Tablet) 1 tablet PO DAILY [facility] Last Admin: 08/12/20 10:35 Dose: 1 tablet Documented by: Carbidopa/Levodopa (Carbidopa/Levodopa 25/250 Tablet) 1 tablet PO 4X/DAY [facility] Last Admin: 08/12/20 10:36 Dose: 1 tablet Documented by: Cyanocobalamin (Cyanocobalamin 500 Mcg Tablet) 1,000 mcg PO DAILY [facility] Last Admin: 08/12/20 10:37 Dose: 1,000 mcg Documented by: Diltiazem HCl (Diltiazem Cd 180 Mg Capsule) 180 mg PO DAILY [facility] Last Admin: 08/12/20 10:33 Dose: 180 mg Documented by: Entacapone (Entacapone 200 Mg Tablet) 200 mg PO 4X/DAY [facility] Last Admin: 08/12/20 10:34 Dose: 200 mg Documented by: Famotidine (Famotidine 20 Mg Tablet) 20 mg PO QHS [facility] Last Admin: 08/11/20 20:16 Dose: 20 mg Documented by: Ferrous Sulfate (Ferrous Sulfate 325 Mg Tablet) 325 mg PO TIDCM [facility] Last Admin: 08/12/20 10:33 Dose: 325 mg Documented by: Furosemide (Furosemide 20 Mg/2 Ml Vial) 20 mg IV BID@1000,1800 [facility] Gabapentin (Gabapentin 600 Mg Tablet) 600 mg PO BID [facility] Last Admin: 08/12/20 10:35 Dose: 600 mg Documented by: Ceftriaxone Sodium (Rocephin) 1 gm in 50 mls @ 100 mls/hr IV Q24H [facility] Last Infusion: 08/11/20 23:20 Dose: Infused Documented by: Isosorbide Mononitrate (Isosorbide Mononitrate 30 Mg Tablet) 30 mg PO DAILY [facility] Last Admin: 08/12/20 10:35 Dose: 30 mg Documented by: Levothyroxine Sodium (Levothyroxine 175 Mcg Tablet) 175 mcg PO DAILY [facility] Last Admin: 08/12/20 10:36 Dose: 175 mcg Documented by: Melatonin (Melatonin 3 Mg Tablet) 3 mg PO QHS PRN PRN PRN Reason: INSOMNIA Ondansetron HCl (Ondansetron 4 Mg/2 Ml Vial) 4 mg IV Q8H PRN PRN PRN Reason: NAUSEA/VOMITING Pantoprazole Sodium (Pantoprazole Sodium 40 Mg Tablet) 40 mg PO BID [facility] Last Admin: 08/12/20 10:36 Dose: 40 mg Documented by: Sertraline HCl (Sertraline 100 Mg Tablet) 150 mg PO DAILY [facility] Last Admin: 08/12/20 10:38 Dose: 150 mg Documented by: Sodium Chloride (0.9% Saline Lock 10 Ml Syringe) 10 - 40 ml IV UD PRN PRN Reason: SALINE FLUSH Last Admin: 08/12/20 10:42 Dose: 10 ml Documented by: Tamsulosin HCl (Tamsulosin Hcl 0.4 Mg Capsule) 0.4 mg PO DAILY [facility] Last Admin: 08/12/20 10:35 Dose: 0.4 mg Documented by: STROKE Vital Signs/Narrative: Vital Signs Temp Pulse Resp BP Pulse Ox 08/12/20 10:25 98.3 F 89 20 H 134/48 H 99 Medical Necessity - Tobacco Use Smoking Status: Never smoker Assessment/Plan All Active Problems (Last Reviewed 08/11/20 @ 02:[address] Vick Gay MD) Acute kidney injury (Acute) 1. Acute hypoxic respiratory insufficiency with new pleural effusion/IDALIA -Unsure as to the source of his pleural effusion. Plan for drainage today we will send for laboratory studies to determine transudative versus exudative -CT of the chest was unremarkable for a PE it did demonstrate a significant left-sided pleural effusion however recently requiring 2 L of oxygen via nasal cannula. Will start diuresis as the fluid from his right-sided thoracentesis was transudative. Appreciate pulmonology input -Given his thoracentesis today we will hold off on therapeutic anticoagulation at the moment -Covid antigen and PCR were negative. Pleural effusion without patchy infiltrates is not normally seen with Covid -Baseline creatinine is around 0.7 and on admission it was 1.32, now 1.11. We will continue to monitor his electrolytes as well as his chloride, and his potassium is they are both elevated 2. Paroxysmal A. fib/CAD status post CABG/HTN/HLD -He had an echo in January 2020 with an EF of 60% with moderate aortic stenosis -We will continue blood pressure medications including Cardizem, Imdur -Restart his Lasix but will hold his lisinopril 3. DM 2 -He is insulin-dependent, will continue with his home insulin regimen and adjust as necessary -Accu-Cheks AC 4. Acute UTI -Urine cultures pending -Continue with Rocephin 5. Parkinson's disease -Disease appears to be stable at the moment -Continue with Sinemet and entacapone 6. Hypothyroidism -Stable -Continue with Synthroid 7. Anxiety/depression -Stable -Continue with Wellbutrin and Zoloft DVT: SCDs Inpatient E&M: 00820 Subs Hosp L2
--- NOTE | 2020-08-12 13:48 | NURSING ---
PT PLACED ON O2 2L NC
--- NOTE | 2020-08-12 13:49 | NURSING ---
PT PLACED ON O2 2L NC - WILL MONITOR
[2020-08-12 16:05] LABS: Bedside Glucose 343 mg/dL (70-110)
[2020-08-12] MEDS: Insulin Lispro 100 UNIT/ML INSULN.PEN SC ×2 (17:23→22:22)
[2020-08-12] MEDS: Ceftriaxone 1 GM/50 ML BAG IV (22:02)
[2020-08-12] MEDS: Atorvastatin Calcium 20 MG Tablet PO (22:04)
[2020-08-12] MEDS: Famotidine 20 MG Tablet PO (22:06)
[2020-08-12 22:41] LABS: Bedside Glucose 241 mg/dL (70-110)
[2020-08-13] VITALS (11 sets, daily range): BP systolic 130–148; BP diastolic 49–71; PULSE 70–82; RESP 18–20; TEMP 36.6–36.9; O2SAT 89–96
[2020-08-13] MEDS: 0.9% Saline Lock 10 ML Syringe IV ×3 (03:45→21:45)
[2020-08-13] MEDS: Albuterol 2.5 MG/3 ML VIAL.NEB. INHALATION (03:47)
[2020-08-13 06:43] LABS: Anion Gap 4 (5-15); BUN 37 mg/dL (7-18); BUN/Creat Ratio 37.7 RATIO (10-20); Calcium,Total 8.6 mg/dL (8.5-10.1); Chloride 115 mmol/L (98-107); Creatinine, Serum 0.98 mg/dL (0.70-1.30); EST Glomerular Filtration Rate 79 mL/min (>60); Est Glom Filt Rate - Afr Amer 95 mL/min (>60); Glucose 159 mg/dL (74-106); Potassium 4.4 mmol/L (3.5-5.1); Sodium Level 142 mmol/L (136-145)
[2020-08-13] MEDS: Insulin Lispro 100 UNIT/ML INSULN.PEN SC ×4 (06:57→21:54)
[2020-08-13] MEDS: Ipratropium/Albuterol Sulfate 3 ML AMPUL.NEB INHALATION ×3 (07:34→19:07)
[2020-08-13] MEDS: Ferrous Sulfate 325 MG Tablet PO ×3 (07:53→17:13)
[2020-08-13 08:10] LABS: Bedside Glucose 160 mg/dL (70-110)
--- NOTE | 2020-08-13 08:44 | PCM.PN.PUL ---
Patient Problems: Active and Suspected Problems (Last Reviewed 08/11/20 @ 02:[address] Vick Gay MD) Acute kidney injury (Acute) Subjective: Patient did okay overnight. Patient reports subjective improvement following diuresis. No chest pain, nominal pain, nausea or vomiting is been reported. Patient is now requiring oxygen only with sleep. - Physical Exam Vitals/I&O's: Vital Signs Temp Pulse Resp BP Pulse Ox 36.6 C 71 20 H 148/49 H 95 08/13/20 03:39 08/13/20 07:34 08/13/20 07:34 08/13/20 03:39 08/13/20 07:34 Oxygen Flow Rate (L/min) [4] 2 Oxygen Flow Rate (L/min) [3] 2 Oxygen Flow Rate (L/min) [2] 2 Oxygen Flow Rate (L/min) [1 ( 2 Initial Baseline)] Oxygen Flow Rate (L/min) 2 Oxygen Delivery Method [4] Room Air Oxygen Delivery Method [3] Room Air Oxygen Delivery Method [2] Nasal Cannula Oxygen Delivery Method [1 ( Nasal Cannula Initial Baseline)] Oxygen Delivery Method Nasal Cannula Weight: 77.8 kg Body Mass Index (BMI) 30.4 Finger Stick Blood Glucose 151 Intake and Output for Last 24 Hours 08/11/20 08/12/20 08/13/20 23:59 23:59 23:59 Intake Total 1581.25 / 2281.25 1890 / 1890 Output Total 2300 / 2300 575 / 1075 725 / 725 Balance -718.75 / -18.75 1315 / 815 -725 / -725 General: Alert, Oriented x3, Cooperative, No apparent distress, Well developed, Well nourished, - - Appears older than stated age. No conversational dyspnea. HEENT: Atraumatic, PERRLA, EOMI, Normocephalic, - - No scleral icterus or injection noted Oral: Moist Mucosa, No Gingival or Mucosal Lesions/ Ulcerations Neck: Supple, No Nodes, Trachea Midline, JVD, Right Lungs: No rhonchi, No wheeze, Diminished, Rales - Improved, - - Symmetric expansion Cardiovascular: Normal S1, Normal S2, Irregular Rate, Murmur, No rub noted, No Gallop Abdomen: Bowel Sounds Present, Soft, Non Tender, Non-Distended, Obese Extremities: No clubbing, No cyanosis, Edema - Improved Skin: - - No change from previous Musculoskeletal: No Tenderness to Palpation of Joints or Extremities Lymphatic: No Cervical, Supraclavicular, or Inguinal Adenopathy Neurological: Cranial nerves II-XII grossly intact, Neuro grossly intact, Motor Exam 5/5 strength throughout Psych/Mental Status: Alert and oriented to time, place, person, mood and affect Microbiology Past 72 Hours 08/10/20 17:50 Mucosa - Nose SARS-CoV-2 Antigen (Rapid) - Final Laboratory Results 08/12/20 07:35: Differential Comment SCANNED 08/12/20 11:45: POC Glucose 309 H 08/12/20 15:58: POC Glucose 343 H 08/12/20 22:21: POC Glucose 241 H 08/13/20 06:04: Sodium 142, Potassium 4.4, Chloride 115 H, Carbon Dioxide 23.0, Anion Gap 4 L, BUN 37 H, Creatinine 0.98, Estim Creat Clear Calc 53.70, Est GFR (MDRD) Af Amer 95, Est GFR (MDRD) Non-Af 79, BUN/Creatinine Ratio 37.7 H, Glucose 159 H, Calcium 8.6 08/13/20 06:38: POC Glucose 160 H Current Medications Albuterol Sulfate (Albuterol 2.5 Mg/3 Ml Vial.Neb.) 2.5 mg INHALATION Q2H PRN PRN PRN Reason: SOB/Wheezing Last Admin: 08/13/20 03:47 Dose: 2.5 mg Documented by: Albuterol/Ipratropium (Ipratropium/Albuterol Sulfate 3 Ml Ampul.Neb) 3 ml INHALATION Q6HWA.RT [facility] Last Admin: 08/13/20 07:34 Dose: 3 ml Documented by: Ascorbic Acid (Ascorbic Acid 500 Mg Tablet) 500 mg PO DAILY [facility] Last Admin: 08/12/20 10:36 Dose: 500 mg Documented by: Atorvastatin Calcium (Atorvastatin Calcium 20 Mg Tablet) 20 mg PO QHS [facility] Last Admin: 08/12/20 22:04 Dose: 20 mg Documented by: Bupropion HCl (Bupropion (Xl) 150 Mg Tablet.Xl) 150 mg PO DAILY [facility] Last Admin: 08/12/20 10:39 Dose: 150 mg Documented by: Calamine/Phenol (Menthol/Lanolin/Calamine/Znox 113 Gm Tube) 1 applic TOPICAL BID [facility]; Protocol Last Admin: 08/12/20 22:00 Dose: 1 applicatio Documented by: Calcium/Vitamin D (Calcium Carb/Vitamin D 1 Tablet Tablet) 1 tablet PO DAILY [facility] Last Admin: 08/12/20 10:35 Dose: 1 tablet Documented by: Carbidopa/Levodopa (Carbidopa/Levodopa 25/250 Tablet) 1 tablet PO 4X/DAY [facility] Last Admin: 08/12/20 22:10 Dose: 1 tablet Documented by: Cyanocobalamin (Cyanocobalamin 500 Mcg Tablet) 1,000 mcg PO DAILY [facility] Last Admin: 08/12/20 10:37 Dose: 1,000 mcg Documented by: Dextrose (Dextrose 50%-Water 25 Gm/50 Ml Disp.Syrin) 0 gm IV X1 PRN; Protocol PRN Reason: Hypoglycemia Diltiazem HCl (Diltiazem Cd 180 Mg Capsule) 180 mg PO DAILY [facility] Last Admin: 08/12/20 10:33 Dose: 180 mg Documented by: Entacapone (Entacapone 200 Mg Tablet) 200 mg PO 4X/DAY [facility] Last Admin: 08/12/20 22:04 Dose: 200 mg Documented by: Famotidine (Famotidine 20 Mg Tablet) 20 mg PO QHS [facility] Last Admin: 08/12/20 22:06 Dose: 20 mg Documented by: Ferrous Sulfate (Ferrous Sulfate 325 Mg Tablet) 325 mg PO TIDCM [facility] Last Admin: 08/13/20 07:53 Dose: 325 mg Documented by: Furosemide (Furosemide 20 Mg/2 Ml Vial) 20 mg IV BID@1000,1800 [facility] Last Admin: 08/12/20 17:25 Dose: 20 mg Documented by: Gabapentin (Gabapentin 600 Mg Tablet) 600 mg PO BID [facility] Last Admin: 08/12/20 22:04 Dose: 600 mg Documented by: Glucagon (Glucagon 1 Mg/Ml Syringe) 1 mg IM .X1 PRN PRN Reason: Hypoglycemia Ceftriaxone Sodium (Rocephin) 1 gm in 50 mls @ 100 mls/hr IV Q24H [facility] Last Infusion: 08/12/20 22:32 Dose: Infused Documented by: Insulin Glargine (Insulin Glargine 100 Units/Ml Pen) 25 units SC QHS [facility] Last Admin: 08/12/20 22:14 Dose: 25 units Documented by: Insulin Human Lispro (Insulin Lispro 100 Unit/Ml Insuln.Pen) 0 unit SC ACHS [facility]; Protocol Last Admin: 08/13/20 06:57 Dose: 2 units Documented by: Isosorbide Mononitrate (Isosorbide Mononitrate 30 Mg Tablet) 30 mg PO DAILY [facility] Last Admin: 08/12/20 10:35 Dose: 30 mg Documented by: Levothyroxine Sodium (Levothyroxine 175 Mcg Tablet) 175 mcg PO DAILY [facility] Last Admin: 08/12/20 10:36 Dose: 175 mcg Documented by: Melatonin (Melatonin 3 Mg Tablet) 3 mg PO QHS PRN PRN PRN Reason: INSOMNIA Ondansetron HCl (Ondansetron 4 Mg/2 Ml Vial) 4 mg IV Q8H PRN PRN PRN Reason: NAUSEA/VOMITING Pantoprazole Sodium (Pantoprazole Sodium 40 Mg Tablet) 40 mg PO BID [facility] Last Admin: 08/12/20 22:06 Dose: 40 mg Documented by: Sertraline HCl (Sertraline 100 Mg Tablet) 150 mg PO DAILY [facility] Last Admin: 08/12/20 10:38 Dose: 150 mg Documented by: Sodium Chloride (0.9% Saline Lock 10 Ml Syringe) 10 - 40 ml IV UD PRN PRN Reason: SALINE FLUSH Last Admin: 08/13/20 03:45 Dose: 10 ml Documented by: Tamsulosin HCl (Tamsulosin Hcl 0.4 Mg Capsule) 0.4 mg PO DAILY [facility] Last Admin: 08/12/20 10:35 Dose: 0.4 mg Documented by: Medical Necessity - Tobacco Use Smoking Status: Never smoker Assessment/Plan All Active Problems (Last Reviewed 08/11/20 @ 02:[address] Vick Gay MD) Acute kidney injury (Acute) RECOMMENDATIONS: 1. Continue diuresis as tolerated 2. Wean oxygen as tolerated 3. Okay to continue antibiotics pending culture results, but low clinical suspicion of sepsis 4. Walking oximetry prior to discharge 5. Outpatient complete pulmonary function test IMPRESSIONS: 1. Acute hypoxic respiratory insufficiency Clinical suspicion for multifactorial etiology. Patient does have bilateral pleural effusions, but thoracentesis is suggestive of a transudate physiology. This would be most compatible with congestive heart failure through the clinical scenario. However, patient does have an extensive smoking history with emphysematous changes, so undiagnosed COPD is likely also present. It is unclear if this is truly an exacerbation as patient does not have a lot of wheezing on exam. Would hold off on a repeat thoracentesis. Patient likely has an element of pulmonary hypertension, but was unable to visualize on echocardiogram. Patient does have pulmonary hypertension, anticipate rapid drop in oxygenation with ambulation. Patient should have a walking oximetry prior to discharge. Low clinical suspicion for active infection of the lungs, but UTI cannot be excluded, so reasonable to continue with antibiotics until cultures are available. We will continue with diuresis for now as patient is tolerating well. Improved renal function suggest better Starling forces with volume removal. 2. Acute on chronic diastolic CHF/CAD status post CABG/paroxysmal A. fib/hypertension/hyperlipidemia Defer to hospitalist service on whether cardiology needs to be consulted. Patient likely would benefit from diuresis. Agree with continuation of baseline medications. Reasonable to hold lisinopril while actively diuresing. Would continue with Cardizem for rate control. 3. Diabetes mellitus type 2 Patient insulin-dependent. May need to adjust sliding scale in the interim given recent steroids. Given diabetes with insulin dependence, would not empirically place on prednisone unless patient were to develop wheezing on exam. If patient develops wheezing, initiation of Pulmicort aerosols may have less effects on hyperglycemia. 4. Possible UTI/Parkinson's disease/hypothyroidism/anxiety/depression/multiple falls Complicates care, management, recovery and prognosis. Patient's procalcitonin was low, so if culture of urine is negative, discontinuation of antibiotics is likely reasonable. Okay to continue with other baseline medications from my perspective. Patient would benefit from physical and occupational therapy given recurrent falls. Inpatient E&M: 32936 Subs Hosp L2
[2020-08-13] MEDS: Menthol/Lanolin/Calamine/Znox 113 GM Tube 1 APPLIC TOPICAL ×2 (10:56→21:34)
[2020-08-13] MEDS: Calcium Carb/Vitamin D 1 TABLET Tablet PO (10:56)
[2020-08-13] MEDS: Tamsulosin HCl 0.4 MG Capsule PO (10:56)
[2020-08-13] MEDS: Gabapentin 600 MG Tablet PO ×2 (10:57→21:36)
[2020-08-13] MEDS: dilTIAZem CD 180 MG Capsule PO (10:57)
[2020-08-13] MEDS: Isosorbide Mononitrate 30 MG Tablet PO (10:57)
[2020-08-13] MEDS: Furosemide 20 MG/2 ML VIAL IV ×2 (10:57→18:41)
[2020-08-13] MEDS: Pantoprazole Sodium 40 MG Tablet PO ×2 (10:57→21:36)
[2020-08-13] MEDS: buPROPion (XL) 150 MG TABLET.XL PO (10:57)
[2020-08-13] MEDS: Levothyroxine 175 MCG Tablet PO (10:58)
[2020-08-13] MEDS: Carbidopa/Levodopa 25/250 Tablet PO ×4 (10:58→21:37)
[2020-08-13] MEDS: Cyanocobalamin 500 MCG Tablet 1000 MCG PO (10:58)
[2020-08-13] MEDS: Ascorbic Acid 500 MG Tablet PO (10:58)
[2020-08-13] MEDS: Sertraline 100 MG Tablet 150 MG PO (10:59)
--- NOTE | 2020-08-13 11:05 | PN_ITS ---
Patient Problems: Active and Suspected Problems (Last Reviewed 08/11/20 @ 02:[address] Vick Gay MD) Acute kidney injury (Acute) Subjective: Is better, off oxygen. Continue with IV diuresis. Vitals/I&O's: Vital Signs Temp Pulse Resp BP Pulse Ox 98.5 F 70 18 141/71 H 94 08/13/20 09:27 08/13/20 09:27 08/13/20 09:40 08/13/20 09:27 08/13/20 09:40 Oxygen Flow Rate (L/min) [4] 2 Oxygen Flow Rate (L/min) [3] 2 Oxygen Flow Rate (L/min) [2] 2 Oxygen Flow Rate (L/min) [1 ( 2 Initial Baseline)] Oxygen Flow Rate (L/min) 2 Oxygen Delivery Method [4] Room Air Oxygen Delivery Method [3] Room Air Oxygen Delivery Method [2] Nasal Cannula Oxygen Delivery Method [1 ( Nasal Cannula Initial Baseline)] Oxygen Delivery Method Room Air Weight: 171 lb 8.314 oz Body Mass Index (BMI) 30.4 Finger Stick Blood Glucose 151 Intake and Output for Last 24 Hours 08/11/20 08/12/20 08/13/20 23:59 23:59 23:59 Intake Total 1581.25 / 2281.25 1890 / 1890 Output Total 2300 / 2300 575 / 1075 725 / 725 Balance -718.75 / -18.75 1315 / 815 -725 / -725 General: Alert, Oriented x3, Cooperative, No apparent distress HEENT: Atraumatic, PERRLA, EOMI, Normocephalic Oral: Moist Mucosa Neck: Supple, No JVD Lungs: Normal air movement, Diminished more on the left than on the right. No rales Cardiovascular: Regular rate, Regular Rhythm, Normal S1, Normal S2, Murmur Abdomen: Soft, Non Tender, Non-Distended, No Hepato-splenomegaly Extremities: No edema, Capillary Refill Less than 3 Seconds Skin: No rashes, No breakdown Neurological: Neuro grossly intact, Sensory exam intact to light touch and pain, - - Chronic tremor from Parkinson's Psych/Mental Status: Normal Affect, Appropriate Microbiology Past 72 Hours 08/10/20 19:40 Urine, Clean Catch Urine Culture - Final Kirsten albicans GNR lactose crm marketing specialist GPC Poss Enterococcus sp 12/10/20 18:05 Blood Culture (Wb) - Left Hand Blood Culture - Preliminary No growth in 48 hours. 08/10/20 17:50 Blood Culture (Wb) - Anticubital Left Blood Culture - Preliminary No growth in 48 hours. 08/10/20 17:50 Mucosa - Nose SARS-CoV-2 Antigen (Rapid) - Final Laboratory Results 08/12/20 11:45: POC Glucose 309 H 08/12/20 15:58: POC Glucose 343 H 08/12/20 22:21: POC Glucose 241 H 08/13/20 06:04: Sodium 142, Potassium 4.4, Chloride 115 H, Carbon Dioxide 23.0, Anion Gap 4 L, BUN 37 H, Creatinine 0.98, Estim Creat Clear Calc 53.70, Est GFR (MDRD) Af Amer 95, Est GFR (MDRD) Non-Af 79, BUN/Creatinine Ratio 37.7 H, Glucose 159 H, Calcium 8.6 08/13/20 06:38: POC Glucose 160 H Current Medications Albuterol Sulfate (Albuterol 2.5 Mg/3 Ml Vial.Neb.) 2.5 mg INHALATION Q2H PRN PRN PRN Reason: SOB/Wheezing Last Admin: 08/13/20 03:47 Dose: 2.5 mg Documented by: Albuterol/Ipratropium (Ipratropium/Albuterol Sulfate 3 Ml Ampul.Neb) 3 ml INHALATION Q6HWA.RT [facility] Last Admin: 08/13/20 07:34 Dose: 3 ml Documented by: Ascorbic Acid (Ascorbic Acid 500 Mg Tablet) 500 mg PO DAILY [facility] Last Admin: 08/13/20 10:58 Dose: 500 mg Documented by: Atorvastatin Calcium (Atorvastatin Calcium 20 Mg Tablet) 20 mg PO QHS [facility] Last Admin: 08/12/20 22:04 Dose: 20 mg Documented by: Bupropion HCl (Bupropion (Xl) 150 Mg Tablet.Xl) 150 mg PO DAILY [facility] Last Admin: 08/13/20 10:57 Dose: 150 mg Documented by: Calamine/Phenol (Menthol/Lanolin/Calamine/Znox 113 Gm Tube) 1 applic TOPICAL BID [facility]; Protocol Last Admin: 08/13/20 10:56 Dose: 1 applicatio Documented by: Calcium/Vitamin D (Calcium Carb/Vitamin D 1 Tablet Tablet) 1 tablet PO DAILY [facility] Last Admin: 08/13/20 10:56 Dose: 1 tablet Documented by: Carbidopa/Levodopa (Carbidopa/Levodopa 25/250 Tablet) 1 tablet PO 4X/DAY [facility] Last Admin: 08/13/20 10:58 Dose: 1 tablet Documented by: Cyanocobalamin (Cyanocobalamin 500 Mcg Tablet) 1,000 mcg PO DAILY [facility] Last Admin: 08/13/20 10:58 Dose: 1,000 mcg Documented by: Dextrose (Dextrose 50%-Water 25 Gm/50 Ml Disp.Syrin) 0 gm IV X1 PRN; Protocol PRN Reason: Hypoglycemia Diltiazem HCl (Diltiazem Cd 180 Mg Capsule) 180 mg PO DAILY [facility] Last Admin: 08/13/20 10:57 Dose: 180 mg Documented by: Entacapone (Entacapone 200 Mg Tablet) 200 mg PO 4X/DAY [facility] Last Admin: 08/13/20 10:56 Dose: 200 mg Documented by: Famotidine (Famotidine 20 Mg Tablet) 20 mg PO QHS [facility] Last Admin: 08/12/20 22:06 Dose: 20 mg Documented by: Ferrous Sulfate (Ferrous Sulfate 325 Mg Tablet) 325 mg PO TIDCM [facility] Last Admin: 08/13/20 07:53 Dose: 325 mg Documented by: Furosemide (Furosemide 20 Mg/2 Ml Vial) 20 mg IV BID@1000,1800 [facility] Last Admin: 08/13/20 10:57 Dose: 20 mg Documented by: Gabapentin (Gabapentin 600 Mg Tablet) 600 mg PO BID [facility] Last Admin: 08/13/20 10:57 Dose: 600 mg Documented by: Glucagon (Glucagon 1 Mg/Ml Syringe) 1 mg IM .X1 PRN PRN Reason: Hypoglycemia Ceftriaxone Sodium (Rocephin) 1 gm in 50 mls @ 100 mls/hr IV Q24H [facility] Last Infusion: 08/12/20 22:32 Dose: Infused Documented by: Insulin Glargine (Insulin Glargine 100 Units/Ml Pen) 25 units SC QHS [facility] Last Admin: 08/12/20 22:14 Dose: 25 units Documented by: Insulin Human Lispro (Insulin Lispro 100 Unit/Ml Insuln.Pen) 0 unit SC ACHS [facility]; Protocol Last Admin: 08/13/20 06:57 Dose: 2 units Documented by: Isosorbide Mononitrate (Isosorbide Mononitrate 30 Mg Tablet) 30 mg PO DAILY [facility] Last Admin: 08/13/20 10:57 Dose: 30 mg Documented by: Levothyroxine Sodium (Levothyroxine 175 Mcg Tablet) 175 mcg PO DAILY [facility] Last Admin: 08/13/20 10:58 Dose: 175 mcg Documented by: Melatonin (Melatonin 3 Mg Tablet) 3 mg PO QHS PRN PRN PRN Reason: INSOMNIA Ondansetron HCl (Ondansetron 4 Mg/2 Ml Vial) 4 mg IV Q8H PRN PRN PRN Reason: NAUSEA/VOMITING Pantoprazole Sodium (Pantoprazole Sodium 40 Mg Tablet) 40 mg PO BID [facility] Last Admin: 08/13/20 10:57 Dose: 40 mg Documented by: Sertraline HCl (Sertraline 100 Mg Tablet) 150 mg PO DAILY [facility] Last Admin: 08/13/20 10:59 Dose: 150 mg Documented by: Sodium Chloride (0.9% Saline Lock 10 Ml Syringe) 10 - 40 ml IV UD PRN PRN Reason: SALINE FLUSH Last Admin: 08/13/20 03:45 Dose: 10 ml Documented by: Tamsulosin HCl (Tamsulosin Hcl 0.4 Mg Capsule) 0.4 mg PO DAILY [facility] Last Admin: 08/13/20 10:56 Dose: 0.4 mg Documented by: STROKE Vital Signs/Narrative: Vital Signs Temp Pulse Resp BP Pulse Ox 08/13/20 09:40 18 94 08/13/20 09:27 98.5 F 70 18 141/71 H 94 08/13/20 07:34 71 20 H 95 Medical Necessity - Tobacco Use Smoking Status: Never smoker Assessment/Plan All Active Problems (Last Reviewed 08/11/20 @ 02:[address] Vick Gay MD) Acute kidney injury (Acute) 1. Acute hypoxic respiratory insufficiency with new pleural effusion/IDALIA -Unsure as to the source of his pleural effusion. Plan for drainage today we will send for laboratory studies to determine transudative versus exudative -CT of the chest was unremarkable for a PE it did demonstrate a significant left-sided pleural effusion however recently requiring 2 L of oxygen via nasal cannula. Will start diuresis as the fluid from his right-sided thoracentesis was transudative. Appreciate pulmonology input -Given his thoracentesis today we will hold off on therapeutic anticoagulation at the moment -Covid antigen and PCR were negative. Pleural effusion without patchy infiltrates is not normally seen with Covid -Baseline creatinine is around 0.7 and on admission it was 1.32. We will continue to monitor his electrolytes as well as his chloride, and his potassium as they are both elevated 2. Paroxysmal A. fib/CAD status post CABG/HTN/HLD -He had an echo in January 2020 with an EF of 60% with moderate aortic stenosis -We will continue blood pressure medications including Cardizem, Imdur -Restart his Lasix but will hold his lisinopril 3. DM 2 -He is insulin-dependent, will continue with his home insulin regimen and adjust as necessary -Accu-Cheks AC 4. Acute UTI -Urine cultures pending -Continue with Rocephin 5. Parkinson's disease -Disease appears to be stable at the moment -Continue with Sinemet and entacapone 6. Hypothyroidism -Stable -Continue with Synthroid 7. Anxiety/depression -Stable -Continue with Wellbutrin and Zoloft DVT: SCDs Inpatient E&M: 78449 Subs Hosp L2
[2020-08-13 12:20] LABS: Bedside Glucose 234 mg/dL (70-110)
[2020-08-13 17:01] LABS: Bedside Glucose 241 mg/dL (70-110)
[2020-08-13 18:51] LABS: Bedside Glucose 153 mg/dL (70-110)
[2020-08-13] MEDS: Famotidine 20 MG Tablet PO (21:35)
[2020-08-13] MEDS: Atorvastatin Calcium 20 MG Tablet PO (21:36)
[2020-08-13] MEDS: Ceftriaxone 1 GM/50 ML BAG IV (21:37)
[2020-08-13 22:21] LABS: Bedside Glucose 223 mg/dL (70-110)
[2020-08-14 03:49] VITALS: BP 131/52; PULSE 76; RESP 18; TEMP 36.3; O2SAT 96
[2020-08-14 03:51] VITALS: RESP 18
[2020-08-14 05:26] LABS: Anion Gap 4 (5-15); BUN 26 mg/dL (7-18); BUN/Creat Ratio 33.7 RATIO (10-20); Calcium,Total 8.2 mg/dL (8.5-10.1); Chloride 110 mmol/L (98-107); Creatinine, Serum 0.77 mg/dL (0.70-1.30); EST Glomerular Filtration Rate 104 mL/min (>60); Est Glom Filt Rate - Afr Amer 126 mL/min (>60); Estimated Creatinine Clearance 52.62 ml/min; Glucose 113 mg/dL (74-106); Potassium 3.9 mmol/L (3.5-5.1); Sodium Level 141 mmol/L (136-145)
[2020-08-14 06:31] LABS: Bedside Glucose 126 mg/dL (70-110)
[2020-08-14 07:12] VITALS: PULSE 79; RESP 16; O2SAT 94
[2020-08-14] MEDS: Ipratropium/Albuterol Sulfate 3 ML AMPUL.NEB INHALATION (07:12)
[2020-08-14 09:02] VITALS: BP 152/68; PULSE 77; RESP 18; TEMP 36.7; O2SAT 95
[2020-08-14] MEDS: Menthol/Lanolin/Calamine/Znox 113 GM Tube 1 APPLIC TOPICAL (09:04)
[2020-08-14] MEDS: dilTIAZem CD 180 MG Capsule PO (09:04)
[2020-08-14] MEDS: Ferrous Sulfate 325 MG Tablet PO ×2 (09:04→11:25)
[2020-08-14] MEDS: buPROPion (XL) 150 MG TABLET.XL PO (09:04)
[2020-08-14] MEDS: Isosorbide Mononitrate 30 MG Tablet PO (09:05)
[2020-08-14] MEDS: Sertraline 100 MG Tablet 150 MG PO (09:05)
[2020-08-14] MEDS: Ascorbic Acid 500 MG Tablet PO (09:05)
[2020-08-14] MEDS: Carbidopa/Levodopa 25/250 Tablet PO ×2 (09:05→13:15)
[2020-08-14] MEDS: Pantoprazole Sodium 40 MG Tablet PO (09:05)
[2020-08-14] MEDS: Cyanocobalamin 500 MCG Tablet 1000 MCG PO (09:05)
[2020-08-14] MEDS: Tamsulosin HCl 0.4 MG Capsule PO (09:05)
[2020-08-14] MEDS: Calcium Carb/Vitamin D 1 TABLET Tablet PO (09:05)
[2020-08-14] MEDS: Furosemide 20 MG/2 ML VIAL IV (09:06)
[2020-08-14] MEDS: Levothyroxine 175 MCG Tablet PO (09:06)
[2020-08-14] MEDS: 0.9% Saline Lock 10 ML Syringe IV (09:06)
[2020-08-14] MEDS: Gabapentin 600 MG Tablet PO (09:08)
--- NOTE | 2020-08-14 09:11 | CASEMGMT ---
Addendum entered by Angela Zaragoza 08/14/20 13:04: JUNE faxed discharge paperwork to [facility] including transfer to extended care facility, signed medication list, any scripts, new COVID results, COVID screening tool, convalescent 7000. Original in SNF folder and copy on pt's chart. SW in to speak with pt. SW updated pt on approval to discharge to [facility]. Pt states understanding. Pt states that his daughter Christel is able to transport him. SW informed pt that this worker will give Christel a call. SW also informed pt that this worker will call his other Daughter Renay to update. Pt states understanding. SW placed a call to pt's daughter Christel and updated her on approval and discharge. Christel confirms she is able to transport pt, will be at [facility] around 2:00-2:30pm. JUNE spoke with RN, pt will need oxygen tank for transportatoin time. SW updated Christel of this, Christel states she will bring oxygen tank. SW updated RN. JUNE placed a call to pt's other daughter Renay and updated her on discharge to [facility]. Renay states understanding, also confirms Christel will be transporting pt. SW updated pt on transportation time and that Christel will be transporting pt at 2:00-2:30pm. Pt states understanding. JUNE placed a call to [facility] and left message for Ana in admissions regarding transportation time. Plan: [facility] today skilled with pt's daughter Christel transporting pt at 2:00-2:30pm Angela Zaragoza REHAB NURSING TECH, FINANCIAL REPORTING SPECIALIST Addendum entered by Angela Zaragoza 08/14/20 10:14: JUNE received call from Ana Maria at [facility] stating pre-cert has been obtained and pt can discharge to SNF today. Ana Maria states they require COVID test within 24 hour admission to SNF and pt will need new COVID test. JUNE updated charge nurse. Physician updated regarding pre-cert. Plan: [facility] skilled today. Pt will need results of COVID test. Original Note: Social Work Note JUNE faxed updated clinicals to [facility]. JUNE wrote on fax cover sheer that pt is medically ready for discharge once pre-cert has been obtained. Plan: [facility] pending pre-cert Angela Zaragoza REHAB NURSING TECH, FINANCIAL REPORTING SPECIALIST
[2020-08-14 09:26] VITALS: O2SAT 93
[2020-08-14] MEDS: Insulin Lispro 100 UNIT/ML INSULN.PEN SC (11:25)
[2020-08-14 11:31] LABS: Bedside Glucose 218 mg/dL (70-110)
--- NOTE | 2020-08-14 11:53 | PCM.TXEXTCAR ---
- Diet 08/11/20 00:33 Diet: Cardiac: Calorie-Controlled Is pt able to select menu?: No Diet Comments: cut-up foods for pt; needs set up at meals How many daily calories?: 1800 calorie - Routine Orders/Code Status Code Status: DNRCC-A - Wound(s) x4 extremities Wound Type: Abrasion Rt hand Wound Type: Skin Tear Rt elbow Wound Type: Skin Tear Right upper back Wound Type: Puncture - Allergies/Procedures Done in Hospital Allergies/Adverse Reactions: Allergies Iodine and Iodide Containing Produc Allergy (Verified 07/21/20 09:39) Shortness of breath simvastatin Adverse Reaction (Verified 07/21/20 09:39) Other - Type of Care/Length of Stay Estimated LOS: Convalescent Care Less Than 30 days Type of Care Needed: Skilled Rehab Potential: Fair Prognosis: Fair - Additional Orders/Day of Discharge Day of Discharge: 08/14/20 - Follow Up Care Primary Care Physician: Roselyn Goldberg MD [STAFF PHYSICIAN] - Please follow up with your Primary Care Physician in: In 1 to 2 weeks
--- NOTE | 2020-08-14 11:54 | DS.PCM_ITS ---
Discharge Date and Diagnosis - Problem List Patient Problems: Active and Suspected Problems (Last Reviewed 08/11/20 @ 02:[address] Vick Gay MD) Acute kidney injury (Acute) Date of Admission: 08/10/20 Date of Discharge: 08/14/20 - Primary Discharge Diagnosis Acute Problems: Active Problems (Last Reviewed 08/11/20 @ 02:[address] Vick Gay MD) Acute kidney injury (Acute) - Secondary Discharge Diagnosis Chronic Problems: Chronic Problems (Last Reviewed 08/11/20 @ 02:[address] Vick Gay MD) Seizure (Chronic) Parkinsons (Chronic) Acute on chronic anemia (Chronic) Implantable cardioverter-defibrillator (ICD) at end of battery life (Chronic) Nonrheumatic aortic (valve) stenosis (Chronic) Paroxysmal atrial fibrillation (Chronic) Essential hypertension (Chronic) Atherosclerotic heart disease of [place] coronary artery without angina pectoris (Chronic) CABG x4- MONTERO to LAD, EPIFANIO to the Distal RCA, Right Radial Artery to the OM branch of CX, and Reverse SVG from the aorta to the Distal RCA 08/17/01 Aortocoronary bypass status (Chronic ~08/17/01) CABG x4- MONTERO to LAD, EPIFANIO to the Distal RCA, Right Radial Artery to the OM branch of CX, and Reverse SVG from the aorta to the Distal RCA 08/17/01 Hyperlipidemia (Chronic) Carotid bruit (Chronic) Long-term use of high-risk medication (Chronic) Paroxysmal ventricular tachycardia (Chronic) Implantable cardioverter-defibrillator (ICD) in situ (Chronic ~10/23/11) Type 2 diabetes mellitus (Chronic) Hospital Course and Treatment Imaging Results: Clinical Impression(s) from Imaging Studies Brain CT 08/10/20 17:25 IMPRESSION: No acute intracranial and calvarial abnormality. There is no interval change. Electronically Signed: Edenilson Zhou DO at 18:50 EST Tel [phone], Service support , Cervical Spine CT 08/10/20 17:33 IMPRESSION: Degenerative changes of the cervical spine without acute fracture or subluxation. The findings are similar to the previous study. Electronically Signed: Edenilson Zhou DO at 18:54 EST Tel [phone], Service support , Chest X-Ray 08/10/20 18:23 IMPRESSION: Right pleural effusion and atelectasis not previously noted. The findings are otherwise unchanged. Electronically Signed: Edenilson Zhou DO at 18:40 EST Tel [phone], Service support , Thoracentesis Ultrasound 08/11/20 00:32 IMPRESSION: Ultrasound-guided right thoracentesis. Electronically Signed: Charles Steen, at 14:34 EST , Service support , Chest X-Ray 08/11/20 14:10 IMPRESSION: Status post right thoracentesis. There is no evidence of pneumothorax. Electronically Signed: Charles Steen, at 14:40 EST , Service support , Chest CTA 08/11/20 21:00 IMPRESSION: 1. No evidence of pulmonary embolus. 2. No aortic dissection or aneurysm. 3. Evidence of CABG procedure and cardiac pacemaker. The heart is normal in size. 4. Moderate to large bilateral pleural effusions with atelectasis at the lung bases. 5. Patchy peripheral groundglass infiltrates in the upper lobes. 6. Degenerative changes of the thoracic spine. Electronically Signed: Edenilson Zhou DO at 21:38 EST Tel [phone], Service support , Operations: None Summary of Care Provided: The patient is a 75 year old M purple comorbidities admitted with progressive shortness of breath diagnosed with new onset pleural effusion 1. Acute hypoxic respiratory insufficiency secondary to pleural effusion ?Patient underwent thoracocentesis which was consistent with transudate. It was felt patient thoracocentesis was from acute congestive heart failure with preserved ejection fraction. In addition to supplemental oxygen patient was managed with Lasix 2. Acute congestive heart failure with preserved ejection fraction ?Echo obtained in January 2020 demonstrated EF of 60% with moderate aortic stenosis. Patient presented with worsening respiratory symptoms with bilateral pleural effusion which is attributed to CHF managed with Lasix 3. Hyperkalemia ?Secondary to combination of potassium supplementation as well as lisinopril which was discontinued during patient hospital stay 4. Paroxysmal A. fib ?Rate controlled 5. Coronary artery disease ?Status post CABG 6. Hypertension - Blood pressure controlled, home medications continued with dose adjustment as needed patient lisinopril was discontinued due to hyperkalemia 7. Parkinson's disease ?Patient is on Sinemet and entacapone continue 8. Hypothyroidism - Patient is on levothyroxine home dose continued 9. Dyslipidemia -Patient is on statin therapy, continued at home dose Patient Problems: Active and Suspected Problems (Last Reviewed 08/11/20 @ 02:[address] Vick bright MD) Acute kidney injury (Acute) - Physical Exam Vitals/I&O's: Vital Signs Temp Pulse Resp BP Pulse Ox 98.1 F 77 18 152/68 H 93 08/14/20 09:02 08/14/20 09:02 08/14/20 09:02 08/14/20 09:02 08/14/20 09:26 Oxygen Flow Rate (L/min) [4] 2 Oxygen Flow Rate (L/min) [3] 2 Oxygen Flow Rate (L/min) [2] 2 Oxygen Flow Rate (L/min) [1 ( 2 Initial Baseline)] Oxygen Flow Rate (L/min) 2 Oxygen Delivery Method [4] Room Air Oxygen Delivery Method [3] Room Air Oxygen Delivery Method [2] Nasal Cannula Oxygen Delivery Method [1 ( Nasal Cannula Initial Baseline)] Oxygen Delivery Method Room Air Weight: 77.6 kg Body Mass Index (BMI) 30.4 Finger Stick Blood Glucose 151 Intake and Output for Last 24 Hours 08/12/20 08/13/20 08/14/20 23:59 23:59 23:59 Intake Total 1890 / 1890 1350 / 1450 100 / 100 Output Total 575 / 1075 1975 / 2300 1650 / 1650 Balance 1315 / 815 -625 / -850 -1550 / -1550 General: Alert Neck: Supple Lungs: Diminished Cardiovascular: Regular rate, Regular Rhythm Microbiology Past 72 Hours 08/10/20 19:40 Urine, Clean Catch Urine Culture - Final Kirsten albicans GNR lactose filters assembler GPC Poss Enterococcus sp 08/10/20 18:05 Blood Culture (Wb) - Left Hand Blood Culture - Preliminary No growth in 48 hours. 08/10/20 17:50 Blood Culture (Wb) - Anticubital Left Blood Culture - Preliminary No growth in 48 hours. Laboratory Results 08/13/20 07:52: POC Glucose 153 H 08/13/20 11:57: POC Glucose 234 H 08/13/20 16:27: POC Glucose 241 H 08/13/20 21:52: POC Glucose 223 H 08/14/20 04:41: Sodium 141, Potassium 3.9, Chloride 110 H, Carbon Dioxide 27.0, Anion Gap 4 L, BUN 26 H, Creatinine 0.77, Estim Creat Clear Calc 52.62, Est GFR (MDRD) Af Amer 126, Est GFR (MDRD) Non-Af 104, BUN/Creatinine Ratio 33.7 H, Glucose 113 H, Calcium 8.2 L 08/14/20 06:17: POC Glucose 126 H 08/14/20 11:24: POC Glucose 218 H Current Medications Albuterol Sulfate (Albuterol 2.5 Mg/3 Ml Vial.Neb.) 2.5 mg INHALATION Q2H PRN PRN PRN Reason: SOB/Wheezing Last Admin: 08/13/20 03:47 Dose: 2.5 mg Documented by: Albuterol/Ipratropium (Ipratropium/Albuterol Sulfate 3 Ml Ampul.Neb) 3 ml INHALATION Q6HWA.RT [facility] Last Admin: 08/14/20 07:12 Dose: 3 ml Documented by: Ascorbic Acid (Ascorbic Acid 500 Mg Tablet) 500 mg PO DAILY [facility] Last Admin: 08/14/20 09:05 Dose: 500 mg Documented by: Atorvastatin Calcium (Atorvastatin Calcium 20 Mg Tablet) 20 mg PO QHS [facility] Last Admin: 08/13/20 21:36 Dose: 20 mg Documented by: Bupropion HCl (Bupropion (Xl) 150 Mg Tablet.Xl) 150 mg PO DAILY [facility] Last Admin: 08/14/20 09:04 Dose: 150 mg Documented by: Calamine/Phenol (Menthol/Lanolin/Calamine/Znox 113 Gm Tube) 1 applic TOPICAL BID [facility]; Protocol Last Admin: 08/14/20 09:04 Dose: 1 applicatio Documented by: Calcium/Vitamin D (Calcium Carb/Vitamin D 1 Tablet Tablet) 1 tablet PO DAILY [facility] Last Admin: 08/14/20 09:05 Dose: 1 tablet Documented by: Carbidopa/Levodopa (Carbidopa/Levodopa 25/250 Tablet) 1 tablet PO 4X/DAY [facility] Last Admin: 08/14/20 09:05 Dose: 1 tablet Documented by: Cyanocobalamin (Cyanocobalamin 500 Mcg Tablet) 1,000 mcg PO DAILY [facility] Last Admin: 08/14/20 09:05 Dose: 1,000 mcg Documented by: Dextrose (Dextrose 50%-Water 25 Gm/50 Ml Disp.Syrin) 0 gm IV X1 PRN; Protocol PRN Reason: Hypoglycemia Diltiazem HCl (Diltiazem Cd 180 Mg Capsule) 180 mg PO DAILY [facility] Last Admin: 08/14/20 09:04 Dose: 180 mg Documented by: Entacapone (Entacapone 200 Mg Tablet) 200 mg PO 4X/DAY [facility] Last Admin: 08/14/20 09:05 Dose: 200 mg Documented by: Famotidine (Famotidine 20 Mg Tablet) 20 mg PO QHS [facility] Last Admin: 08/13/20 21:35 Dose: 20 mg Documented by: Ferrous Sulfate (Ferrous Sulfate 325 Mg Tablet) 325 mg PO TIDCM [facility] Last Admin: 08/14/20 11:25 Dose: 325 mg Documented by: Furosemide (Furosemide 20 Mg/2 Ml Vial) 20 mg IV BID@1000,1800 [facility] Last Admin: 08/14/20 09:06 Dose: 20 mg Documented by: Gabapentin (Gabapentin 600 Mg Tablet) 600 mg PO BID [facility] Last Admin: 08/14/20 09:08 Dose: 600 mg Documented by: Glucagon (Glucagon 1 Mg/Ml Syringe) 1 mg IM .X1 PRN PRN Reason: Hypoglycemia Ceftriaxone Sodium (Rocephin) 1 gm in 50 mls @ 100 mls/hr IV Q24H [facility] Last Infusion: 08/13/20 22:15 Dose: Infused Documented by: Insulin Glargine (Insulin Glargine 100 Units/Ml Pen) 25 units SC QHS [facility] Last Admin: 08/13/20 21:57 Dose: 25 units Documented by: Insulin Human Lispro (Insulin Lispro 100 Unit/Ml Insuln.Pen) 0 unit SC ACHS [facility]; Protocol Last Admin: 08/14/20 11:25 Dose: 4 units Documented by: Isosorbide Mononitrate (Isosorbide Mononitrate 30 Mg Tablet) 30 mg PO DAILY [facility] Last Admin: 08/14/20 09:05 Dose: 30 mg Documented by: Levothyroxine Sodium (Levothyroxine 175 Mcg Tablet) 175 mcg PO DAILY [facility] Last Admin: 08/14/20 09:06 Dose: 175 mcg Documented by: Melatonin (Melatonin 3 Mg Tablet) 3 mg PO QHS PRN PRN PRN Reason: INSOMNIA Ondansetron HCl (Ondansetron 4 Mg/2 Ml Vial) 4 mg IV Q8H PRN PRN PRN Reason: NAUSEA/VOMITING Pantoprazole Sodium (Pantoprazole Sodium 40 Mg Tablet) 40 mg PO BID [facility] Last Admin: 08/14/20 09:05 Dose: 40 mg Documented by: Sertraline HCl (Sertraline 100 Mg Tablet) 150 mg PO DAILY [facility] Last Admin: 08/14/20 09:05 Dose: 150 mg Documented by: Sodium Chloride (0.9% Saline Lock 10 Ml Syringe) 10 - 40 ml IV UD PRN PRN Reason: SALINE FLUSH Last Admin: 08/14/20 09:06 Dose: 20 ml Documented by: Tamsulosin HCl (Tamsulosin Hcl 0.4 Mg Capsule) 0.4 mg PO DAILY [facility] Last Admin: 08/14/20 09:05 Dose: 0.4 mg Documented by: Discharge Diet: Low fat/ Low Cholesterol, 8 Cup Fluid Restriciton, 2000 mg Sodium Diet Home Medications: Medications to take at Discharge Atorvastatin Calcium [Lipitor] 20 mg PO QHS 09/27/14 Diltiazem HCl [Diltiazem 24Hr ER (Cd)] 180 mg PO DAILY 09/27/14 buPROPion tablets [Wellbutrin tablets] 150 mg PO DAILY 09/27/14 carbidopa 25 mg-levodopa 250 mg tablet 1 tab PO 4X/DAY tab 01/12/18 gabapentin 600 mg tablet 600 mg PO BID 01/12/18 calcium citrate 315 mg calcium-vitamin D3 6.25 mcg (250 unit) tablet 1 tab PO DAILY 10/22/18 ferrous sulfate 325 mg (65 mg iron) tablet 325 mg PO TID tab 10/22/18 isosorbide mononitrate 60 mg tablet,extended release 24 hr 30 mg PO DAILY tab 10/22/18 sertraline 100 mg tablet 150 mg PO DAILY tab 10/22/18 Ascorbic Acid [Vitamin C] 500 mg PO DAILY 02/07/20 Entacapone [Comtan] 200 mg PO 4X/DAY 02/07/20 Famotidine 20 mg PO QHS 02/07/20 Omeprazole 40 mg PO BID 02/07/20 Cyanocobalamin [Vitamin B12] 1,000 mcg PO DAILY@0800 06/01/20 Furosemide [Lasix] 20 mg PO BID 08/10/20 Insulin Aspart [Novolog Flexpen] See Protocol SC ACHS 08/10/20 Insulin Glargine,Hum.rec.anlog [Lantus Solostar] 25 unit SQ QHS 08/10/20 Ipratropium/Albuterol Respimat [Combivent Respimat Inhal [place]] 1 puff INHALATION 4X/DAY 08/10/20 Levothyroxine Sodium [Synthroid] 175 mcg PO DAILY 08/10/20 Potassium Chloride [K-Dur] 20 meq PO DAILY 08/10/20 Tamsulosin HCl [Flomax] 0.4 mg PO DAILY@0800 08/10/20 Albuterol Aerosols [Ventolin Aerosols] 2.5 mg INHALATION Q2H PRN PRN vial.neb. 08/14/20 Ipratropium/Albuterol Sulfate [Duoneb] 3 ml INHALATION Q6HWA.RT ampul.neb 08/14/20 Primary Care Physician: Roselyn Goldberg MD [STAFF PHYSICIAN] - Please follow up with your Primary Care Physician in: In 1 to 2 weeks Patient Instructions: Thoracentesis Disposition: [facility] facility Minutes spent on discharge:: 35 Patient Condition:: Stable Medical Necessity - Tobacco Use Smoking Status: Never smoker Meaningful Use Info Meaningful Use Diagnoses (Choose all that apply): CHF - AMI/Post PCI/Angioplasty Aspirin given w/in 24hrs of arrival?: Yes - CHF EDUAR/ARB ordered at discharge?: Yes Reason EDUAR/ARB not ordered?: Hyperkalemia Documented LVEF (%): 60
[2020-08-14 13:13] VITALS: BP 119/52; PULSE 72; RESP 14; TEMP 36.4; O2SAT 95
[2020-08-14 13:16] LABS: Pathologist Comment/Body Fluid Reviewed
--- NOTE | 2020-08-14 14:10 | CASEMGMT ---
Social Work Note JUNE received call from Ana Maria at [facility] stating she still hasn't received discharge paperwork and COVID test. Ana Maria requests paperwork be faxed to new fax number [phone]. JUNE faxed discharge paperwork to [facility] to new fax number including transfer to extended care facility, signed medication list, any scripts, new COVID tests results, COVID screening tool, and convalescent [phone]. JUNE faxed discharge paperwork again to original fax number [phone]. JUNE has faxed discharge paperwork three times to [facility]. Angela Zaragoza SAWSMITH, [employer]
== END 2020-08-14 15:20 | disposition skilled nursing facility (03) | DRG 186 ==
LOC: ED 17:48 → MS3 08-11 00:11
PROVIDERS: Family Medicine; Admitting Provider Hospitalist; Emergency Provider Student in an Organized Health Care Education/Training Program; Visit Provider Internal Medicine
DX: J90 Pleural effusion, not elsewhere classified (principal); I50.33 Acute on chronic diastolic (congestive) heart failure; N17.9 Acute kidney failure, unspecified; I47.2 Ventricular tachycardia; J98.11 Atelectasis; N30.00 Acute cystitis without hematuria; R06.89 Other abnormalities of breathing; R09.02 Hypoxemia; E78.5 Hyperlipidemia, unspecified; I35.0 Nonrheumatic aortic (valve) stenosis; I48.0 Paroxysmal atrial fibrillation; I27.20 Pulmonary hypertension, unspecified; E87.5 Hyperkalemia; G20 Parkinson's disease; I25.10 Atherosclerotic heart disease of native coronary artery without angina pectoris; E86.0 Dehydration; D63.8 Anemia in other chronic diseases classified elsewhere; R79.89 Other specified abnormal findings of blood chemistry; F41.9 Anxiety disorder, unspecified; F32.9 Major depressive disorder, single episode, unspecified; E03.9 Hypothyroidism, unspecified; E11.9 Type 2 diabetes mellitus without complications; I11.0 Hypertensive heart disease with heart failure; N40.0 Benign prostatic hyperplasia without lower urinary tract symptoms; G40.909 Epilepsy, unspecified, not intractable, without status epilepticus; Z95.810 Presence of automatic (implantable) cardiac defibrillator; Z87.891 Personal history of nicotine dependence; Z85.47 Personal history of malignant neoplasm of testis; Z79.4 Long term (current) use of insulin; Z79.899 Other long term (current) drug therapy; Z95.1 Presence of aortocoronary bypass graft
CPT/HCPCS: 32555; 36415; 70450; 71045; 71046; 71275; 72125; 80048; 80053; 81001; 82945; 82962; 83605; 83615; 83880; 84145; 84157; 84484; 85025; 85379; 87040; 87086; 87088; 87426; 87635; 88108; 88305; 88313; 89050; 93005; 94640; 97110; 97116; 97162; 97166; 97530; 97535; 99251; 99285; J7030; J7040; Q9967; A4216; G0463; J1940; U0002